=== PATIENT | male | born 1955 | race Caucasian/White ===

== ENCOUNTER 2016-12-24 16:56 | Inpatient (IN) | payer OTHER, MEDICARE ==
[~2016-12-24] VITALS: Ht 182.9 cm; Wt 82.6 kg
[~2016-12-24 16:56] MED LIST: AUGMENTIN 875875 MG PO; COUMADIN 5 MG TA5 MG PO; EXTENDED PHENY100 MG PO; FOLIC ACID 1 MG PO; LEXAPRO 5MG5 MG PO; LOVENOX 6060 MG/0.6 SC; MAGNESIUM OXID400 MG PO; Theragran Vitamins PO; VITAMIN C500 M3 PO; ZINC SULFATE 2220 MG PO
--- NOTE | 2016-12-24 17:10 | NUR ---
PER PT SENT BY DR. MACIAS UNSURE WHY, PT HAD LABS AND CXR TODAY, WENT HOME CALLED TO COME IN LIKE THIS AM, PT IS PALE H/H FROM THIS AM 7.8/24.4. PT AND FAMILY UPSET D/T CONFUSION FROM THIS AM PT IS PALE, NO OBVIOUS SOB. NO CO
--- NOTE | 2016-12-24 17:20 | NUR ---
PT TAKEN TO ROOM 6 FROM TRIAGE SINUS TO SINUS TACH ON MONITOR, 100-118. RA SAT 96% PT WITH ? KNOWN ABDOMINAL MASS - UNCLEAR ABOUT FOLLOW UP/DIAGNOSIS ... BILATERAL PITTING EDEMA NOTED TO LOWER EXTREMITIES SKIN PALE IN COLOR PA INTO EVAL
--- NOTE | 2016-12-24 17:36 | ED GENERAL ADULT ---
History of Present Illness General Chief Complaint: General Adult Stated Complaint: PT WAS SIB BY Source: patient, family, old records Exam Limitations: no limitations Vital Signs & Intake/Output Vital Signs & Intake/Output Vital Signs Date Time Temp Pulse Resp B/P B/P Pulse O2 O2 Flow FiO2 Mean Ox Delivery Rate 12/24 2021 97.1 101 18 131/79 99 Room Air 12/24 1846 98 Room Air 12/24 1721 114 20 116/75 99 Room Air 12/24 1710 97.8 116 22 125/88 Allergies Coded Allergies: NO KNOWN ALLERGIES (01/11/14) Reconcile Medications Multivitamin (Daily Multiple Vitamin) 1 EACH TABLET 1 TAB PO DAILY SUPPLEMENT (Reported) Phenytoin Sodium Extended 100 MG CAPSULE 2 CAP PO BID SEIZURES (Reported) Warfarin Sodium 7.5 MG TABLET 0.5-1 TAB PO AD BLOOD THINNER (Reported) Triage Note: PER PT SENT BY DR. MACIAS UNSURE WHY, PT HAD LABS AND CXR TODAY, WENT HOME CALLED TO COME IN LIKE THIS AM, PT IS PALE H/H FROM THIS AM 7.8/24.4. PT AND FAMILY UPSET D/T CONFUSION FROM THIS AM Triage Nurses Notes Reviewed? yes Onset: Abrupt Duration: week(s):, getting worse Timing: recent history Injury Environment: home No Modifying Factors: none HPI: 61-year-old male sent in by his primary care doctor for further evaluation. Patient complains of increased weakness recently over the past few weeks, swelling in his lower legs, and swelling in his abdomen. Reportedly the patient had some type of abdominal mass that was diagnosed a couple years ago. The patient is not sure what it is as well as the family member and reports that they have not been informed. He reports some intermittent chest pain. He denies any vomiting fever or chills. Nothing seems to make the symptoms better or worse. Denies any other associated symptoms. Patient was sent in by his primary care doctor today for further evaluation and possible admission. (JANUARY BRYAN) Past History Travel History Traveled to [place] past 21 day No Medical History Any Pertinent Medical History? see below for history Neurological: NONE EENT: NONE Cardiovascular: NONE Respiratory: pulmonary embolism, PULMONARY EMBOLUS Gastrointestinal: NONE Hepatic: NONE Renal: NONE Musculoskeletal: NONE Psychiatric: NONE Endocrine: NONE History of MRSA: No History of VRE: No History of CDIFF: No Surgical History Surgical History: non-contributory Psychosocial History Who do you live with Brother Services at Home None What is your primary language Croatian Tobacco Use: Quit >30 days ago Family History Family History, If Any: Relation not specified for: *No pertinent family history Hx Contributory? No (JANUARY BRYAN) Review of Systems Review of Systems Constitutional: Reports: see HPI. EENTM: Reports: no symptoms. Respiratory: Reports: no symptoms. Cardiovascular: Reports: no symptoms. GI: Reports: see HPI. Genitourinary: Reports: no symptoms. Musculoskeletal: Reports: see HPI. Skin: Reports: no symptoms. Neurological/Psychological: Reports: no symptoms. Hematologic/Endocrine: Reports: no symptoms. Immunologic/Allergic: Reports: no symptoms. All Other Systems: Reviewed and Negative (JANUARY BRYAN) Physical Exam Physical Exam General Appearance: no apparent distress, alert, awake Head: atraumatic, normal appearance Eyes: Bilateral: normal appearance. Ears, Nose, Throat: normal pharynx, hearing grossly normal Neck: normal inspection Respiratory: normal breath sounds, no respiratory distress Cardiovascular: regular rate/rhythm Gastrointestinal: distention, mass, firm mass appreciated in lower abd Back: normal inspection Extremities: normal inspection, normal range of motion Neurologic/Psych: awake, alert, normal mood/affect Skin: intact, normal color Core Measures ACS in differential dx? No CVA/TIA Diagnosis: No Severe Sepsis Present: No Septic Shock Present: No (JANUARY BRYAN) Progress Differential Diagnoses I considered the following diagnoses in my evaluation of the patient: Inferior vena cava syndrome, DVT, carcinoma, PE, liver cirrhosis, renal failure, Plan of Care: Orders Procedure Date/time Status Patient Data 12/24 2153 Active Add-on Test (ER Only) 12/24 2114 Active Add-on Test (ER Only) 12/24 1847 Active CULTURE,URINE 12/24 1837 Active URINALYSIS 12/24 1835 Complete Add-on Test (ER Only) 12/24 1736 Active TROPONIN LEVEL 12/24 1734 Complete PARTIAL THROMBOPLASTIN TIME 12/24 1727 Complete PROTHROMBIN TIME 12/24 1727 Complete TYPE & SCREEN (NOT X-MATCH) 12/24 172 Complete EKG 12/24 1724 Active Laboratory Tests 12/24/16 1835: Urinalysis LIGHT H, Urine Color YEL, Urine Clarity TURBD H, Urine pH 7.5, Ur Specific [place] 1.020, Urine Protein 100 H, Urine Ketones NEG, Urine Nitrite POS H, Urine Bilirubin NEG, Urine Urobilinogen 0.2, Ur Leukocyte Esterase LARGE H, Ur Microscopic SEDIMENT EXAMINED, Urine RBC 25-50 H, Urine WBC PACKD H, Ur Epithelial Cells FEW, Urine Bacteria PACKD H, Urine Mucus MANY H, Urine Hemoglobin LARGE H, Urine Glucose NEG 12/24/16 1734: Troponin I < 0.01, PT 20.3 H, INR 1.95 H, APTT 29 Microbiology 12/24 1837 URINE ROUT: Urine Culture - RECD Diagnostic Imaging: Viewed by Me: CT Scan. Discussed w/RAD: CT Scan. Radiology Impression: EXAM TYPE: CAT - CT ABD & PELVIS W IV CONTRAST; CT CHEST W IV CONTRAST EXAMINATION: CT CHEST, ABDOMEN AND PELVIS WITH CONTRAST CLINICAL INFORMATION: Shortness of breath. Firm abdominal mass on physical exam. Concern for compression of the IVC. COMPARISON: CT chest 07/11/2014. CT abdomen pelvis 10/11/2014. Pelvic ultrasound 10/17/2014. MRI of pelvis 11/12/2014. TECHNIQUE: Multidetector volumetric CT imaging of the chest, abdomen and pelvis was obtained after the administration of 95 mL of intravenous Optiray 320 without immediate adverse reactions. DLP: 414.29 mGy-cm. FINDINGS: CT CHEST: Lungs: Linear atelectasis and scarring at the medial anterior right lung base. Asymmetric elevation of the right diaphragm. Lungs are otherwise clear. Central bronchial airways are open. Mediastinum: Large hiatal hernia. No acute change. No fluid collections. No pericardial effusion. Pleura: There is no pleural effusion. No pleural mass or thickening. Axilla: No lymphadenopathy. CT ABDOMEN AND PELVIS: LIVER, GALLBLADDER, AND BILIARY TREE: 5 mm hypodensity dome right lobe of liver segment 8, axial image 47 (2). This is stable since CAT scan of . No suspicious liver lesion. No intrapelvic bile duct dilatation. The gallbladder is unremarkable with no evidence of radiopaque gallstones, gallbladder wall thickening, or obvious pericholecystic inflammatory changes. PANCREAS: No acute change of the pancreas. No mass. No pancreatic duct dilatation. SPLEEN: Spleen normal in size and contour. No focal lesion. ADRENAL GLANDS: Adrenal glands are normal in size. No focal mass. KIDNEYS AND URETERS: The kidneys are normal in size, shape, and attenuation. No hydronephrosis, hydroureter, or calculi seen. No perinephric stranding. BLADDER: Unremarkable. GASTROINTESTINAL TRACT/PELVIS/MESENTERY: There is a large mass in the lower pelvis. The mass is slightly heterogeneous but low in density measuring 30 Hounsfield units. Mass measures AP 14.2 by transverse 12.6 by superior inferior 16.2 cm. This mass fills most of the lower pelvis and displaces the bladder and impresses upon the prostate. The mass displaces bowel loops. At the superior margin of the mass there are air collections. These are tubular collections and some appear to be probably within bowel loop, sagittal image 57 (601). There is a bowel loop which is inseparable from the superior margin of this mass, coronal image 43 (602). The appearance suggests that the mass has engulfed small bowel loops but does not cause obstruction of these bowel loops. Alternatively there could be a fistula allowing air into the mass. The mass has no calcifications. On the CAT scan study of 10/11/2014 and seen on the subsequent MRI exam of pelvis 11/12/2014 a low density mass lesion was present along the right pelvic sidewall. This could be the etiology for this current pelvic mass. A separate appendix is not identified on this exam. There is a large volume of stool throughout the colon. The appendix is not identified. There is no dilatation of the small bowel. The prostate measures 5.5 cm transverse. No free fluid. No inflammation. No free air in the mesentery. ABDOMINAL WALL: Fat-containing right inguinal hernia measuring 1.6 cm transverse. LYMPH NODES: Normal. VASCULAR: Normal enhancement of the abdominal and pelvic vasculature. The pelvic mass does not compress the IVC. The pelvic masses below the IVC. The vessels along the pelvic sidewall may be slightly compressed but the veins remain patent. OSSEOUS STRUCTURES: Multilevel degenerative change of spine. Compression deformity superior endplate of L4 vertebrae with about 50% loss of height of vertebrae is chronic unchanged since CAT scan of 10/11/2014 . IMPRESSION: CTA CHEST: Normal. CT SCAN ABDOMEN PELVIS: Large mass in the lower central pelvis. This mass impress upon the vessels along the pelvic sidewall but does not occlude the pelvic veins. This does not impress upon the IVC. There is air collections within the mass and the mass may have engulfed bowel loops. This does not cause obstruction to the bowel. This critical result was discussed with Dr. Burgos on 12/24/2016, 7:10 p.m. and it was ascertained that the content and urgency of the report was understood at the time of direct communication. 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 DATE/TIME TRANSCRIBED:12/24/161831 Initial ED EKG: normal intervals, normal p-waves, normal sinus rhythm, rate (121 ) (JANUARY BRYAN) Departure Departure Disposition: STILL A PATIENT Condition: Stable Clinical Impression Primary Impression: Symptomatic anemia Secondary Impressions: Lower GI bleed, Pelvic mass in male, UTI (urinary tract infection) Referrals: GARRETT MACIAS MD (PCP/Family) Departure Forms: Customer Survey General Discharge Information Admission Note Spoke With: FELISHA FLORES MD Documentation of Exam: Documentation of any treatments & extenuating circumstances including Concerns Regarding Discharge (functional status, medication knowledge or non-compliance, living conditions, etc.) that warrant an admission rather than observation: Patient will require surgical consult. Surgery. IV antibiotics. Possibly blood transfusion. GI consultation. Interventional radiology consultation. Biopsy of pelvic mass. Oncology consultation. Patient would do poorly as an outpatient. Patient is symptomatic with his anemia. Patient has a lower GI bleed the positive guaiac and a drop in his H&H. Dr. Proctor was consulted and he reviewed the CT scan and will consult on the patient. (JANUARY BRYAN) PA/MOLD CARRIER Co-Sign Statement Statement: ED Attending supervision documentation- x I saw and evaluated the patient. I have also reviewed all the pertinent lab results and diagnostic results. I agree with the findings and the plan of care as documented in the PA's/MOLD CARRIER's documentation. [] I have reviewed the ED Record and agree with the PA's/MOLD CARRIER's documentation. [] Additions or exceptions (if any) to the PAs/MOLD CARRIER's note and plan are summarized below: [] (FILI SOSA,VALERIO) Critical Care Note Critical Care Note Critical Care Time: non-applicable (JANUARY BRYAN)
--- NOTE | 2016-12-24 17:39 | NUR ---
TO US BY TONYAER
[2016-12-24 17:55] LABS: PT 20.3 SEC (9.4-12.5); PTT 29 SEC (25-37)
[2016-12-24] MEDS ORDERED: DAILY MULTIPLE1 EACH PO (18:00)
[2016-12-24] MEDS ORDERED: PHENYTOIN SODI100 MG PO (18:00)
[2016-12-24] MEDS ORDERED: WARFARIN SODIU7.5 M1 PO (18:00)
--- NOTE | 2016-12-24 18:00 | NUR ---
PT REMAINS OUT OF THE DEPARTMENT ATTEMPTED TO RECONCILE MEDS WITH FAMILY MEMBER IN ROOM - STATES "ALL HE TAKES IS DILANTIN AND COUMADIN". DOSAGES UNKNOWN. 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
--- NOTE | 2016-12-24 18:12 | NUR ---
BACK FROM US TAKEN RIGHT TO CT SCAN
--- NOTE | 2016-12-24 18:26 | ULTRASOUND REPORT ---
EXAMINATION: US TRIPLEX OF LOWER EXTREMITIES, BILATERAL CLINICAL INFORMATION: Edema. Swelling. COMPARISON: None TECHNIQUE: Color-flow triplex imaging with spectral analysis and compression Doppler were performed on the lower extremities. FINDINGS: Respiratory variation, normal compression and augmented flow are noted throughout the lower extremities. The visualized common femoral vein, superficial femoral vein, profunda femoral vein, popliteal vein and midcalf peroneal and posterior tibial venous segments show no evidence of deep venous thrombosis. Subcutaneous edema seen in the calf bilaterally. Right leg Popliteal cyst measuring 2.3 x 0.8 x 2.3 cm. IMPRESSION: 1. Normal triplex scan without evidence of deep venous thrombosis involving the lower extremities. 2. Right leg Popliteal cyst. 3. Bilateral subcutaneous edema.
--- NOTE | 2016-12-24 18:45 | NUR ---
BACK FROM CT SCAN, STATES "I FEEL BEAUTIFUL". DENIES ANY COMPLAINTS. DENIES PAIN. ASSISTED TO STAND TO USE URINAL. VOIDS VERY CLOUDY PINK URINE. SAMPLE OBTAINED AND SENT. PA AWARE.
--- NOTE | 2016-12-24 19:13 | NUR ---
REPORT GIVEN TO IVAN BRADEN
--- NOTE | 2016-12-24 19:22 | NUR ---
PT MADE AWARE THAT WE ARE AWAITING CAT SCAN RESULTS.
--- NOTE | 2016-12-24 19:43 | CT SCAN REPORT ---
EXAMINATION: CT CHEST, ABDOMEN AND PELVIS WITH CONTRAST CLINICAL INFORMATION: Shortness of breath. Firm abdominal mass on physical exam. Concern for compression of the IVC. COMPARISON: CT chest 07/11/2014. CT abdomen pelvis 10/11/2014. Pelvic ultrasound 10/17/2014. MRI of pelvis 11/12/2014. TECHNIQUE: Multidetector volumetric CT imaging of the chest, abdomen and pelvis was obtained after the administration of 95 mL of intravenous Optiray 320 without immediate adverse reactions. DLP: 414.29 mGy-cm. FINDINGS: CT CHEST: Lungs: Linear atelectasis and scarring at the medial anterior right lung base. Asymmetric elevation of the right diaphragm. Lungs are otherwise clear. Central bronchial airways are open. Mediastinum: Large hiatal hernia. No acute change. No fluid collections. No pericardial effusion. Pleura: There is no pleural effusion. No pleural mass or thickening. Axilla: No lymphadenopathy. CT ABDOMEN AND PELVIS: LIVER, GALLBLADDER, AND BILIARY TREE: 5 mm hypodensity dome right lobe of liver segment 8, axial image 47 (2). This is stable since CAT scan of 10/11/2014. No suspicious liver lesion. No intrapelvic bile duct dilatation. The gallbladder is unremarkable with no evidence of radiopaque gallstones, gallbladder wall thickening, or obvious pericholecystic inflammatory changes. PANCREAS: No acute change of the pancreas. No mass. No pancreatic duct dilatation. SPLEEN: Spleen normal in size and contour. No focal lesion. ADRENAL GLANDS: Adrenal glands are normal in size. No focal mass. KIDNEYS AND URETERS: The kidneys are normal in size, shape, and attenuation. No hydronephrosis, hydroureter, or calculi seen. No perinephric stranding. BLADDER: Unremarkable. GASTROINTESTINAL TRACT/PELVIS/MESENTERY: There is a large mass in the lower pelvis. The mass is slightly heterogeneous but low in density measuring 30 Hounsfield units. Mass measures AP 14.2 by transverse 12.6 by superior inferior 16.2 cm. This mass fills most of the lower pelvis and displaces the bladder and impresses upon the prostate. The mass displaces bowel loops. At the superior margin of the mass there are air collections. These are tubular collections and some appear to be probably within bowel loop, sagittal image 57 (601). There is a bowel loop which is inseparable from the superior margin of this mass, coronal image 43 (602). The appearance suggests that the mass has engulfed small bowel loops but does not cause obstruction of these bowel loops. Alternatively there could be a fistula allowing air into the mass. The mass has no calcifications. On the CAT scan study of 10/11/2014 and seen on the subsequent MRI exam of pelvis 11/12/2014 a low density mass lesion was present along the right pelvic sidewall. This could be the etiology for this current pelvic mass. A separate appendix is not identified on this exam. There is a large volume of stool throughout the colon. The appendix is not identified. There is no dilatation of the small bowel. The prostate measures 5.5 cm transverse. No free fluid. No inflammation. No free air in the mesentery. ABDOMINAL WALL: Fat-containing right inguinal hernia measuring 1.6 cm transverse. LYMPH NODES: Normal. VASCULAR: Normal enhancement of the abdominal and pelvic vasculature. The pelvic mass does not compress the IVC. The pelvic masses below the IVC. The vessels along the pelvic sidewall may be slightly compressed but the veins remain patent. OSSEOUS STRUCTURES: Multilevel degenerative change of spine. Compression deformity superior endplate of L4 vertebrae with about 50% loss of height of vertebrae is chronic unchanged since CAT scan of 10/11/2014 . IMPRESSION: CTA CHEST: Normal. CT SCAN ABDOMEN PELVIS: Large mass in the lower central pelvis. This mass impress upon the vessels along the pelvic sidewall but does not occlude the pelvic veins. This does not impress upon the IVC. There is air collections within the mass and the mass may have engulfed bowel loops. This does not cause obstruction to the bowel. This critical result was discussed with Dr. Burgos on 12/24/2016, 7:10 p.m. and it was ascertained that the content and urgency of the report was understood at the time of direct communication.
--- NOTE | 2016-12-24 20:30 | NUR ---
MARCO ANTONIO SIN AT BEDSIDE TO EXPLAIN PLAN OF CARE.
--- NOTE | 2016-12-24 21:46 | History & Physical ---
HADLEY SOSA,[facility] 12/24/166: General Information and HPI History of Present Illness: Mr. Carrion is a 61-year-old gentleman with a PMH significant for PE in 2014 on Coumadin, seizure disorder on Dilantin, BPH, abdominal mass, and chronic leg edema, previously admitted at [place] in 2014 for seizures, who was sent in by PCP for further evaluation of his anemia in the setting of worsening bilateral leg swelling and abdominal mass. Patient states that his legs have been getting progressively more swollen for the past year and half, and he has been following up with his PCP for it. Over the past week his leg swelling worsened significantly to the extent that he couldn't put on his pants or shoes. During the visit with PCP earlier today he was additionally found to be anemic with H&H of 7.8/24.4 and subsequently prompted to come into ER. The patient states that he was practically in his usual state until a week ago when he fell after "passing out." He reports palpitations with lightheadedness and blurry vision right before the fall. He had the exact same episode again this morning. Denies any head trauma and is unsure if he was seizing at that time as it was unwitnessed. Since the fall last week he has been feeling very fatigued and short of breath especially with exertion. He notes his abdominal pain and swelling also worsened, especially when sitting up. ROS otherwise significant for ongoing dysuria for 4 years and hematochezia for the past 2 years. He reports occasssionally passing mucous stools mixed with bright red blood when he was trying to pass a gas. He sometimes notes some bright red blood on top of stools with bowel movements. Denies any n/v/c/d. Reports a good appetite. No h/o colonoscopy or f/u with high school librarian in the past despite encouragement by PCP. Denies frequetl use of NSAIDs although he has heartburn occassionally. He also reports an abdominal mass that has been increasing in size for the past 2 years. He was seen by Dr. French about 1-2 year ago but didn't pursue any further evaluation or treatment. At the time of interview patient denies any recent chest pain, dyspnea, headache, fever or chills. 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 He has been on Dilantin 200mg BID chronically. He last saw Dr. Greer a year ago and is due for follow up soon. On he is an occassional smoker, a few cigarettes a year. Denies any alcohol or illicit drug use. He lives alone at home where his brother lives downstairs. He does not use any walking aids. FH remarkable for breast cancer in mother and some kind of venous disorder that resulted in bilateral toe amputations. Denies any h/o CAD, CVA, blood dyscrasia in the famiy. PCP - Dr. Macias Neurologist - Dr. Greer Oncologist - Dr. French Full code. Allergies/Medications Allergies: Coded Allergies: NO KNOWN ALLERGIES (01/11/14) Home Med list Multivitamin (Daily Multiple Vitamin) 1 EACH TABLET 1 TAB PO DAILY SUPPLEMENT (Reported) Phenytoin Sodium Extended 100 MG CAPSULE 2 CAP PO BID SEIZURES (Reported) Warfarin Sodium 7.5 MG TABLET 0.5-1 TAB PO AD BLOOD THINNER (Reported) Past History Travel History Traveled to [place] past 21 day No Medical History Neurological: NONE EENT: NONE Cardiovascular: NONE Respiratory: pulmonary embolism, PULMONARY EMBOLUS Gastrointestinal: NONE Hepatic: NONE Renal: NONE Musculoskeletal: NONE Psychiatric: NONE Endocrine: NONE History of MRSA: No History of VRE: No History of CDIFF: No Surgical History Surgical History: non-contributory Past Family/Social History Family History Relations & Conditions if any Relation not specified for: *No pertinent family history Psychosocial History Where do you live? Home Who Do You Live With? alone Services at Home: None Smoking Status: Light Tobacco Smoker ETOH Use: denies use Illicit Drug Use: denies illicit drug use Review of Systems Review of Systems Constitutional: Reports: see HPI. Exam & Diagnostic Data Last 24 Hrs of Vital Signs/I&O Vital Signs Date Time Temp Pulse Resp B/P B/P Pulse O2 O2 Flow FiO2 Mean Ox Delivery Rate 12/25 0000 98.9 103 18 122/70 97 Room Air 12/24 2309 97.1 107 18 131/81 98 Room Air 12/24 2021 97.1 101 18 131/79 99 Room Air 12/24 1846 98 Room Air 12/24 1721 114 20 116/75 99 Room Air 12/24 1710 97.8 116 22 125/88 Intake & Output 12/25 0800 12/25 0000 12/24 1600 Intake Total Output Total 200 Balance -200 Output, Urine 200 Patient 90.265 kg Weight Physical Exam General Appearance Alert, Oriented X3, Cooperative, No Acute Distress Skin No Rashes, No Breakdown, No Significant Lesion Skin Temp/Moisture Exam: Cool/Dry Sepsis Skin Exam (color): Pale HEENT Atraumatic, PERRLA, EOMI, Mucous Membr. moist/pink Neck Supple, No JVD Cardiovascular Regular Rate, Normal S1, Normal S2, No Murmurs, Gallops, Rubs Lungs Clear to Auscultation, Normal Air Movement Abdomen Soft, Large mass in the center of lower abdomen, BS present Neurological Normal Speech, Strength at 5/5 X4 Ext, Normal Tone, Sensation Intact, Cranial Nerves 3-12 NL Extremities No Cyanosis, 2+ pitting ededma in BLEs with mild erythema Vascular Normal Pulses, Pulses Symmetrical Rectal No Hemorrhoids, Enlarged prostate gland, Guaic positive Last 24 Hrs of Labs/Yuri: Laboratory Tests 12/24/16 1835: Urinalysis LIGHT H, Urine Color YEL, Urine Clarity TURBD H, Urine pH 7.5, Ur Specific [place] 1.020, Urine Protein 100 H, Urine Ketones NEG, Urine Nitrite POS H, Urine Bilirubin NEG, Urine Urobilinogen 0.2, Ur Leukocyte Esterase LARGE H, Ur Microscopic SEDIMENT EXAMINED, Urine RBC 25-50 H, Urine WBC PACKD H, Ur Epithelial Cells FEW, Urine Bacteria PACKD H, Urine Mucus MANY H, Urine Hemoglobin LARGE H, Urine Glucose NEG 12/24/16 1734: Troponin I < 0.01, Albumin Pending, Total PSA 5.75 H, TSH Pending, PT 20.3 H, INR 1.95 H, APTT 29, Phenytoin 9.3 L Microbiology 12/24 1836 URINE ROUT: Urine Culture - RECD Assessment/Plan Assessment: Mr. Carrion is a 61-year-old gentleman with a PMH significant for PE in 2014 on Coumadin, seizure disorder on Dilantin, BPH, abdominal mass, and chronic leg edema who is admitted for further evaluation of syncope vs. seizure in addmition his anemia in the setting of worsening bilateral leg swelling and abdominal mass. # Syncopal falls vs. Seizure Patient reports intermitten falls from "passing out," preceded by palpitations with lightheadedness and vision changes. Coudl be epileptic episodes in the context of his preexisting seizure disorder but as for now it warrants further work up to r/o any neruological/cardiac causes * Admit to telmetery unit * Serial EKG/troponins * Echocardiogram * Consult neurology (Dr. Mason) * Seizure precautions * Cont home med Dilantin 200mg BID * Check Dilantin level * Neurochecks Q6 * EEG * Seizure precautions # BLE edema Most likely due to compression of vein by the abdominal mass. It is also possible that anemia could contribute to it. * Give one time IV Lasix 40mg * Strict I/Os * Check BEP, trend renal fx * Pursue workup/treatment for abdominal mass # Abdominal mass - CT abd/pelvis: Large mass in the lower central pelvis. This mass impress upon the vessels along the pelvic sidewall but does not occlude the pelvic veins. This does not impress upon the IVC. There is air collections within the mass and the mass may have engulfed bowel loops. This does not cause obstruction to the bowel. * Consult general surgery * Consult oncology # Symptomatic anemia Most likely due to GI blood loss in the context of recent hematochezia. Guaic positive on EDWIN. Although patient complains of dyspnea and fatigue with exertion , we will hold off transfusing him for now as Hgb is close to 8. * Recheck CBC tomorrow morning, consider transfusing if Hgb drops further * Consult GI * Consult hematology # UTI Reports dysuria with UA indicative of UTI. * Cont IV ceftriaxone # BPH * Check PSA, CEA, CA-99 * Urology referral upon discharge * Consider starting tamulosin # Hx of PE * Cont Coumadin at home dose * INR daily, dose Coumadin accordingly - Heart healthy diet - Mild pain pathway - DVTppx with warfarin - Full code. As Ranked By This Provider Problem List: 1. Lower GI bleed 2. UTI (urinary tract infection) 3. Pelvic mass in male 4. Symptomatic anemia Core Measures/Miscellaneous Acute Coronary Syndrome ACS Diagnosis: No Cerebrovascular Accident CVA/TIA Diagnosis: No Congestive Heart Failure CHF Diagnosis: No Venous Thromboembolism VTE Risk Factors: Age > 40 No Mech VTE prophylaxis d/t: LE Edema No VTE Pharm Prophylaxis d/t: No contraindications VTE Diagnosis: No VTE Type: NONE VTE Confirmed by (Test): NONE Severe Sepsis Severe Sepsis Present: No Septic Shock Septic Shock Present: No Miscellaneous Documentation Attending Case Discussed With: FELISHA FLORES MD Primary Care Physician: GARRETT MACIAS MD Patient sees these Specialists HPI Level of Patient Care: Telemetry CHRISTINE FERREIRA 12/25/16 0246: Resident Review Statement Resident Statement: examined this patient, discussed with internal security manager, agreed with internal security manager, reviewed images Other Findings: Mr. Carrion is a 61-year-old gentleman with significant past medical history of childhood encephalitis complicated by seizures, now on Dilantin chronically [200 mg twice a day], previous pulmonary embolism [unprovoked, on Coumadin for anticoagulation] who presented to the hospital emergency department after being instructed to do so by his primary care physician. He was instructed to come in for evaluation of anemia [H&H 7.8/24.4]. At the time of interview, he has complains of fatigue and lower extremity swelling, along with dysuria and frequency. He states that these symptoms have been going on for at least 1.5 years, but have been progressively worse over the last month. He is quite a difficult historian, at times confused/unable to recall when his symptoms came on or describe his concerns. He describes multiple episodes of falling/passing out. He states that these are "seizures" however when further questioned, he states that they come on rapidly, are associated with palpitations, lightheadedness and diplopia prior to falling. He states that he does not feel confused after waking up and denies any bowel or bladder incontinence. He states that he last saw Dr. Greer approximately 1 year ago, and it was recommended that his Dilantin dose be increased however the patient requested to keep it at 200 mg daily. He has never been evaluated by a loan review analyst. Additionally, he described passing fresh blood per rectum mixed with stool/mucus when passing flatus occasionally. He states he has hemorrhoids, and has been using preparation H, but is still having these occasional episodes. He has been evaluated in the past by Dr. French for his pulmonary embolism/ hypercoagulability and was worked up with a pelvic ultrasound after an mass was appreciated on physical exam, and a subsequent pelvic MRI, the results of which demonstrated a complex cystic mass in the right lower quadrant at the base of the cecum with communication to the appendix. Radiographically this was thought to be a mucocele versus mucinous neoplasm. Unfortunately, the patient was unable to follow-up and today on further evaluation of an abdominal mass palpated, an abdominopelvic CT scan revealed a significant 12.6 x 14.2 x 16.2 cm mass in the lower central pelvis - see report above. When the patient was questioned, he did note increasing abdominal distention, worse over the last month to the point where he cannot button his pants. He did complain of some discomfort when he sat up and felt that the mass was pushing on his bladder. He denies any weight change or loss of appetite. The remainder of the review of systems, social and family history as well as physical exam as dictated above. Problem list assessment and plan Syncope versus seizure with anemia * The patient does have a significant history of epilepsy secondary to childhood encephalitis and is on seizure prophylaxis with 200 mg of Dilantin twice a day. * Last time he followed up with Dr. Greer he was instructed to increase his dose however refused. His falls could potentially be secondary to epileptic foci, however given the palpitations and lightheadedness preceding the events, as well as his tachycardia and bigeminy on EKG, I'm more inclined to think that his falls are possibly due to syncopal episodes. * We will admit to telemetry for monitoring overnight, and obtain another EKG in the morning. * Neuro consult placed and appreciated. We will continue his Dilantin and obtain a Dilantin level, normal therapeutic dose is 10-20. Consider re-dosing based on Dilantin level. * Seizure precautions and also consider an EEG if secured entrance monitor is unremarkable. * Also consider a carotid ultrasound, however given the fact that he is not a diabetic, doesn't have hyperlipidemia or hypertension I am less inclined to think he has carotid artery stenosis. * Additionally, given his anemia, this is also a reasonable etiology to his syncope especially if he does have episodes of tachycardia. Abdominal mass * Unfortunately, this patient has been lost to follow-up and presents today with significant abdominal distention and a significant increase in the size of his abdominal mass. 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 I don't think this is a carcinoid tumor in spite of its location. The patient doesn't have any diarrhea, flushing, hypertension or other signs of serotonin agonism, but consider urinary 5 HIAA to rule out a carcinoid tumor. Also note, most patients that develop carcinoid syndrome do so when the have liver metastases, which this patient does not have. * He will most definitely need surgical evaluation for possible biopsy and/or resection, as well as oncology evaluation. Lower extremity edema * Possibly due to decreased venous return or lymphatic return due to compression from his abdominal past. * This also could be due to high output heart failure given his anemia. * We will diurese with 40 of Lasix IV and monitor his ins and outs, daily weights as well as his lower extremity edema. * Given his hypercoagulability however, with previous PE, we will obtain a BL duplex U/S to evaluate for DVT Dysuria * Urinalysis was positive for signs of UTI. * The mass is pushing up against the bladder leading to some symptoms of urgency /frequency as well as some urinary retention leading to a urinary tract infection. * We will continue with intravenous ceftriaxone 1 g daily and culture urine which is artery been collected. Hypercoagulability * INR was therapeutic * Please consider discontinuing Coumadin dosing tomorrow if the patient isn't going for surgical intervention. * He is hypercoagulable obviously most likely due to his mass which probably led to his pulmonary embolism previously. * Per his CMR, he takes coumadin 7.5 mg, but 0.5-1 tablet. Please confirm dose and redose based on INR in the am. FULL CODE NPO starting midnight for possible biopsy pain path coumadin for dvt ppx SANDRA SOSA, [facility] 12/25/16 0456: Attending MD Review Statement Attending Statement Attending MD Statement: examined this patient, discuss w/resident/PA/EMPLOYEE BENEFITS ATTORNEY, agreed w/resident/PA/EMPLOYEE BENEFITS ATTORNEY Attending Assessment/Plan: 61 yo M with h/o seizure disorder 2/2 childhood encephalitis maintained on dilantin, last admitted to [place] (2013) for status epilepticus 2/2 medication noncompliance that was c/b aspiration pneumonia and PE on coumadin, depression is sent in by PCP for evaluation of anemia. Patient reports increasing weakness, fatigue, dyspnea on exertion and inability to fit into his pants due to worsening LE edema and abdominal distension. Though his symptoms are ongoing for over 1.5 yrs, they have been progressive over past 1 month. Patient is a poor historian and provides multiple compaints multiple episodes of syncope ? seizures most recently today and 1 week prior, associated with palpitations and lightheadedness. He reports compliance with dilantin, but is reluctant to increase the dose or add another anti-epileptic. He c/o dysuria and urinary frequency/ urgency. He has hemorrhoids and reports painful bleeding especially hematochezia for over 2 yrs. Heartburn+, no melena or hematemesis. He denies previous colonoscopy or EGD. No loss of appetite. He denies excessive NSAID use. On reviewing his chart, it is noted that patient had seen Dr. French in 2015 to evaluate cause of hypercoagulable state, wherein CT and MRI revealed an enlarged prostate and a complex cystic mass with peripheral rim enhancement in the right lower quadrant at the base of cecum with communication to appendix suspicious for mucocele or mucinous neoplasm mucinous cystadenocarcinoma. Patient did not follow up with Dr. French. Vitals stable except for tachycardia. Exam: AAO, flat affect. Chest b/l clear, Heart S1S2 regular, Abd soft, palpable suprapubic mass with right lower quadrant and suprapubic tenderness. LE: 3+ pitting pedal edema extending upto abdomen. Rectal exam (done by resident): enlarged prostate nodular, no hemorrhoids, heme positive stool. Labs: H/H 7.8/24.4, normocytic, (baseline 10-12/ 29-32), BUN 25, Ca 7.9, albumin 2.6, TSH 2.74, LFT normal, trop neg, HbA1c 5.8, INR 1.95. CXR: hiatal hernia, basilar atelectasis. LE doppler: no DVT, right left popliteal cyst. UA turbid, packed WBC, packed bacteria, RBC 25-50, nitrite positive, large esterase. CT abd/pelvis: large mass in lower central pelvis with air collections within the mass with mass engulfing the small bowel loops. Mass displaces the bladder and impresses on prostate. EKG: SR, ventricular bigeminy. Echo (2013): normal LV function. 1. Recurrent breakthrough seizure vs. Syncope. Possibly 2/2 medication noncompliance. Tele admit, neurochecks, seizure precautions, check orthostats, check dilantin levels, resume dilantin 200 BID, Neuro consult, EEG. Serial EKG and troponin, check echo. Replete electrolytes to keep K > 4.0 and Mag > 2.0. 2. Acute blood loss, symptomatic anemia likely source being GI. Type and crossmatch, transfuse if Hb < 7.0, guaiac all stools, obtain GI consult. Inpatient vs. Outpatient EGD/ colonoscopy. Check iron studies, B12 and folic acid. Check peripheral smear and assess for hemolysis (LDH, retic count). Obtain heme-onc consult. 3. Bilateral lower extremity edema likely multifactorial in the setting of huge pelvic mass compressing the veins, less likely lymphedema or 2/2 anemia. Need to rule out congestive heart failure vs. Hepatic or renal disease. LFTs and renal functions are normal. Urine shows proteinuria. Obtain echo to assess LV function. Lasix IV 40 mg, monitor output, elevate both LE. Assess need for further diuresis in AM. 4. Pelvic mass of unclear etiology. Most likely arising from appendix as evidenced in previous studies, not clear on this imaging. Surgery consult (Dr. Proctor aware) ?plan for surgical removal of mass/ biopsy. Check PSA and CEA. He would need eventual Urology eval for enlarged prostate and GI eval for colon cancer surveillance. 5. UTI. Obtain urine culture, treat with IV ceftriaxone. 6. PE. INR 1.95, hold coumadin. Once anemia resolves, consider resuming coumadin. Also, assess need to resume if patient not undergoing any surgical intervention. DVT ppx Alps. Full code.
--- NOTE | 2016-12-24 21:51 | NUR ---
MARCO ANTONIO SIN AT BEDSIDE.
--- NOTE | 2016-12-24 21:59 | NUR ---
PT MEDICATED WITH ROCEPHIN PER EMAR.
--- NOTE | 2016-12-24 22:15 | NUR ---
HOUSESTAFF AT [facility] FOR EVAL.
--- NOTE | 2016-12-24 22:40 | NUR ---
PT GOING TO ROOM 229-2
--- NOTE | 2016-12-24 23:06 | NUR ---
REPORT GIVEN TO IVAN WYATT ON GEN MED.
--- NOTE | 2016-12-24 23:30 | NUR ---
REPORT GIVEN TO STEVE ON TELEMETRY.
[2016-12-25] VITALS: BP 122/70
--- NOTE | 2016-12-25 04:57 | Admission Certification ---
Admission Certification Certification Statement - As attending physician, I certify that at the time of - admission, based on clinical presentation, severity of - symptoms, need for further diagnostic testing and - therapeutic interventions, and risk of adverse outcomes - without in-hospital treatment, in my clinical assessment, - this patient requires an acute hospital stay for a minimum - of two nights or longer. I have also considered psychsocial - factors such as support system, advanced age, financial - issues, cognitive issues, and failed out-patient treatments, - past re-admission history, safety of patient, and lack of - compliance as applicable. Specific rationale supporting this admission is: Acute blood loss, symptomatic anemia, syncope vs. seizure, new pelvic mass.
--- NOTE | 2016-12-25 07:18 | Cons- Oncology ---
General Information and HPI Consulting Request Date of Consult: 12/25/16 Requested By: SANDRA SOSA,FELISHA History of Present Illness: The patient is a 61-year-old gentleman complex past medical history now admitted with bilateral leg swelling and a syncopal episode at home. I have previously seen the patient in consultation for iron deficiency anemia. At that time, recommendation was made for GI workup the patient adamantly refused despite my vigorous attempts. Patient is now complaining of abdominal pain and an episode of hematochezia. He tells me his leg swelling has improved since she's been admitted to the hospital Allergies/Medications Allergies: Coded Allergies: NO KNOWN ALLERGIES (01/11/14) Home Med List: Multivitamin (Daily Multiple Vitamin) 1 EACH TABLET 1 TAB PO DAILY SUPPLEMENT (Reported) Phenytoin Sodium Extended 100 MG CAPSULE 2 CAP PO BID SEIZURES (Reported) Warfarin Sodium 7.5 MG TABLET 0.5-1 TAB PO AD BLOOD THINNER (Reported) Current Medications: Current Medications Sig/Ghulam Start time Last Medication Dose Route Stop Time Status Admin Ceftriaxone Sodium 1,000 MG DAILY 12/25 1000 AC IV Ceftriaxone Sodium 0 .STK-MED ONE 12/24 2156 DC .ROUTE Ceftriaxone Sodium 1,000 MG ONCE ONE 12/24 2130 DC 12/24 IV 12/241 2159 Furosemide 40 MG ONCE ONE 12/25 0030 DC 12/25 IV 12/25 0031 0100 Multivitamins 1 TAB DAILY 12/25 1000 AC Therapeutic PO Phenytoin 200 MG BID 12/25 0011 AC 12/25 PO 0100 Review of Systems Review of Systems: Patient denies headaches or dizziness. Patient denies new shortness of breath cough chest pain or hemoptysis. Patient denies dysuria or hematuria. Patient denies new bone pain. 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 Home Who Do You Live With? alone Services at Home: None Smoking Status: Light Tobacco Smoker ETOH Use: denies use Illicit Drug Use: denies illicit drug use Exam & Diagnostic Data Vital Signs and I&O Vital Signs Date Time Temp Pulse Resp B/P B/P Pulse O2 O2 Flow FiO2 Mean Ox Delivery Rate 12/25 0000 Room Air 12/25 0000 98.9 103 18 122/70 97 Room Air 12/24 2309 97.1 107 18 131/81 98 Room Air 12/24 2022 97.1 101 18 131/79 99 Room Air 12/24 1846 98 Room Air 12/24 1721 114 20 116/75 99 Room Air 12/24 1710 97.8 116 22 125/88 Intake & Output 12/25 0800 12/25 0000 12/24 1600 Intake Total 200 Output Total 750 200 Balance -550 -200 Intake, IV 0 Intake, Oral 200 Number 0 Bowel Movements Output, Urine 750 200 Patient 182 lb 200 lb Weight Weight Chair scale Reported by Patient Measurement Method Gen.: in NAD ENT: Sclera anicteric Chest: Normal respiratory effort, decreased breath sounds Cor: RRR, no extra sounds Abdomen: Soft, bowel sounds present, minimal diffuse tenderness, no rebound, question lower abdominal mass Extremities: Without clubbing, cyanosis, or asymmetric edema Neurology: Alert and oriented 3, no gross deficit Skin: No rashes Last 48 Hours of Lab Results: Laboratory Tests 12/25 12/25 12/24 0639 0610 1835 Chemistry Sodium Pending Potassium Pending Chloride Pending Carbon Dioxide Pending Anion Gap Pending BUN Pending Creatinine Pending BUN/Creatinine Ratio Pending Iron Cancelled Pending TIBC Cancelled Pending Ferritin Cancelled Pending Troponin I Pending Vitamin B12 Pending Folate Cancelled Pending Coagulation PT Pending INR Pending Hematology CBC w Diff Pending WBC Pending RBC Pending Hgb Pending Hct Pending MCV Pending MCH Pending RDW Pending Plt Count Pending MPV Pending PUBS MCHC Pending Urines Urinalysis LIGHT H Urine Color (YEL,AMB,STR) YEL Urine Clarity (CLEAR) TURBD H Urine pH (5.0 - 8.0) 7.5 Ur Specific [place] (1.001 - 1.035) 1.020 Urine Protein (NEG,<30 MG/DL) 100 H Urine Ketones (NEG) NEG Urine Nitrite (NEG) POS H Urine Bilirubin (NEG) NEG Urine Urobilinogen (0.1 - 1.0 EU/dl) 0.2 Ur Leukocyte Esterase (NEG) LARGE H Ur Microscopic SEDIMENT EXAMINED Urine RBC (0 - 5 /HPF) 25-50 H Urine WBC (0 - 2 /HPF) PACKD H Ur Epithelial Cells (NONE,FEW) FEW Urine Bacteria (NEG/NONE) PACKD H Urine Mucus (FEW,NONE) MANY H Urine Hemoglobin (NEG) LARGE H Urine Glucose (N MG/DL) NEG 12/24 1734 Chemistry Troponin I (<0.11 ng/ml) < 0.01 Albumin (3.5 - 5.0 g/dL) 2.7 L Total PSA (0.00 - 4.00 ng/mL) 5.75 H TSH (0.270 - 4.200 uIU/mL) 2.680 Coagulation PT (9.4 - 12.5 SEC) 20.3 H INR (0.90 - 1.17) 1.95 H APTT (25 - 37 SEC) 29 Toxicology Phenytoin (10.0 - 20.0 ug/mL) 9.3 L Imaging/Other Studies: CAT scan abdomen and pelvis-inferior abdominal mass, 5 mm hepatic lesion Doppler ultrasound-no DVT Assessment/Plan Assessment: 1. Given the patient's history and presumed iron deficiency anemia, GI malignancy would explain all his findings. The patient, again, is adamant that he wishes not to pursue any workup for malignancy. I again emphasized the seriousness of his current situation and the likelihood that cancer is present. Recommend-if the patient has a change of heart, GI consultation should be obtained. 2. Microcytic anemia-undoubtedly iron deficient and GI source the likely explanation. Recommend- As above Check iron iron-binding ferritin Replete iron Recommendations: .. Consult Acknowledgment - Thank you for your consult request.
--- NOTE | 2016-12-25 07:22 | PN- Housestaff ---
Subjective Follow-up For: Pelvic mass ABLA Seizure History of PE UTI Tele-Events Since Last Visit: Sinus rhythm HR 100-140s Subjective: No acute events overnight. Patient seen and examined this morning. He has no new complaints. He feels that leg swelling has improved since coming to the hospital. He reports that he is currently interested in further workup of the GI malignancy. Review of Systems Constitutional: Reports: see HPI. Objective Last 24 Hrs of Vital Signs/I&O Vital Signs Date Time Temp Pulse Resp B/P B/P Pulse O2 O2 Flow FiO2 Mean Ox Delivery Rate 12/25 1647 99.3 101 16 110/62 96 12/25 0000 Room Air 12/25 0000 98.9 103 18 122/70 97 Room Air 12/24 2309 97.1 107 18 131/81 98 Room Air Intake & Output 12/25 1600 12/25 0800 12/25 0000 Intake Total 480 200 Output Total 300 750 200 Balance 180 -550 -200 Intake, IV 0 Intake, Oral 480 200 Number 0 Bowel Movements Output, Urine 300 750 200 Patient 82.554 kg 90.492 kg Weight Weight Chair scale Reported by Patient Measurement Method Physical Exam General Appearance: Alert, Oriented X3, No Acute Distress HEENT: Atraumatic, Mucous Membr. moist/pink Neck: Supple Cardiovascular: Regular Rate, Normal S1, Normal S2, No Murmurs, Gallops, Rubs Lungs: Diminished Breath Sounds Abdomen: Soft, Minimal Diffuse Tenderness to Palpation Throughout, Palpable Mass Extending from Pelvis to Abdomen, Positive Bowel Sounds Extremities: 2+ Pitting Edema on Bilateral Lower Extremities Current Medications: Current Medications Sig/Ghulam Start time Last Medication Dose Route Stop Time Status Admin Calcium Carbonate 500 MG ONCE ONE 12/25 1714 DC PO 12/26 1715 Ceftriaxone Sodium 1,000 MG 12/25 AC 12/25 IV 2114 Ceftriaxone Sodium 1,000 MG DAILY 12/25 1000 DC IV Furosemide 40 MG ONCE ONE 12/25 0030 DC 12/25 IV 12/25 0031 0100 Multivitamins 1 TAB DAILY 12/25 1000 AC Therapeutic PO Phenytoin 200 MG BID 12/25 0011 AC 12/25 PO 2115 Last 24 Hrs of Lab/Yuri Results Last 24 Hrs of Labs/Mics: Laboratory Tests 12/25/16 2010: CBC w Diff NO MAN DIFF REQ, RBC 3.14 L, MCV 82.8, MCH 26.6 L, RDW 17.6 H, MPV 6.9 L, Gran % 81.4 H, Lymphocytes % 7.9 L, Monocytes % 9.9 H, Eosinophils % 0, Basophils % 0.8, Absolute Granulocytes 9.1 H, Absolute Lymphocytes 0.9 L, Absolute Monocytes 1.1 H, Absolute Eosinophils 0, Absolute Basophils 0.1, PUBS MCHC 32.1 L 12/25/16 1000: Vitamin B12 Cancelled 12/25/16 0639: Iron Cancelled, TIBC Cancelled, Ferritin Cancelled, Folate Cancelled 12/25/16 0610: Anion Gap 8, Estimated GFR > 60, BUN/Creatinine Ratio 23.3, Iron 26 L, TIBC 226 L, Ferritin 17.4 L, Troponin I < 0.01, Vitamin B12 765, Folate 17.5, PT 22.2 H, INR 2.13 H, CBC w Diff NO MAN DIFF REQ, RBC 2.71 L, MCV 81.3, MCH 26.2 L, RDW 17.7 H, MPV 7.2 L, Gran % 75.9 H, Lymphocytes % 11.0 L, Monocytes % 12.5 H, Eosinophils % 0.1, Basophils % 0.5, Absolute Granulocytes 6.8 H, Absolute Lymphocytes 1.0 L, Absolute Monocytes 1.1 H, Absolute Eosinophils 0, Absolute Basophils 0, PUBS MCHC 32.3 L 12/25/16 0600: Carcinoembryonic Ag Pending Urine Cx (12/24/16): >100,000 colonies/ml of Escherichia coli Assessment/Plan Assessment: 61 y/o M with PMHx of seizure disorder on Dilantin, PE in 2013 on Coumadin and BPH who is admitted with symptomatic anemia, bilateral lower extremity edema and large pelvic mass extending into the abdomen. 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 Imaging suggestive of gas within the mass and air within the bladder which could represent fistulization or invasion into the bladder. * Oncology and GI consulted. Appreciate their recs. * CT with IV and oral contrast with concurrent CT cystogram tentatively scheduled on Wednesday (12/25/16) to delineate extent of tumor infiltration. * Plans for further evaluation including possible colonoscopy and surgery pending CT scan. * CEA pending. #ABLA: H/H has further dropped to 7.1/22. * Transfuse 1 unit of pRBCs and repeat CBC post-transfusion. * Monitor H/H and transfuse as needed to keep Hgb >7. #History of PE: Diagnosed in 2013 and treated with warfarin. INR 2.13. * Continue to hold warfarin. * Start IV heparin once INR <2 in anticipation for possible surgery or biopsy. #Possible seizures: Per neurology transient neurological events could potentially represent complex partial seizures. EEG normal. * Neurology following. Appreciate their recs. * Continue prior to admission phenytoin 200 mg PO BID. #UTI: In the presence of UCx growing >100,000 colonies/ml of GNR and dysuria. * Follow UCx. * Continue ceftriaxone 1 g IV daily. Diet: Clear liquid diet DVT PPx: ALPs CODE: FULL Problem List: 1. Acute blood loss anemia 2. Seizure 3. Symptomatic anemia 4. Pelvic mass in male 5. Abdominal mass 6. UTI (urinary tract infection) 7. History of pulmonary embolism Pain Ratin Pain Location: N/A Pain Goal: Remain pain free Pain Plan: None Tomorrow's Labs & Rationales: CBC to monitor H/H in the setting of anemia BMP to monitor lytes and kidney function in the setting of hyponatremia INR in the setting of warfarin therapy
[2016-12-25 08:02] LABS: ABSOLUTE BASOPHIL COUNT 0 /CUMM (0.0-0.2); BASOPHIL % 0.5 % (0.0-2.0); RED BLOOD CELL CT 2.71 /CUMM (4.70-6.10)
[2016-12-25 08:22] LABS: PT 22.2 SEC (9.4-12.5)
[2016-12-25 08:32] LABS: ABSOLUTE EOSINOPHIL COUNT 0 /CUMM (0.0-0.7); ABSOLUTE GRANULOCYTE CT 6.8 /CUMM (1.4-6.5); ABSOLUTE MONOCYTE COUNT 1.1 /CUMM (0.10-0.60); EOSINOPHIL % 0.1 % (0-5); GRANULOCYTE % 75.9 % (42.2-75.2); MEAN CORPUSCULAR HGB 26.2 PG (27.0-31.0); MEAN CORPUSCULAR HGB CONC 32.3 G/DL (33.0-37.0); MEAN CORPUSCULAR VOLUME 81.3 FL (80.0-94.0); MEAN PLATELET VOLUME 7.2 FL (7.4-10.4); PLATELET COUNT 431 /CUMM (130-400); RBC DISTRIBUTION WIDTH 17.7 % (11.5-14.5)
--- NOTE | 2016-12-25 09:09 | Cons- Gastroenterology ---
General Information and HPI Consulting Request Date of Consult: 12/25/16 Requested By: ANNIKA SOSA,MANPREET Minaya Reason for Consult: I was notified this morning by the hospitalist service to assess iron deficiency anemia, scant rectal bleeding, and abdominal pelvic mass on CT, HD #2. Source of Information: patient, old records Exam Limitations: fair historian, ? component of denial; A & Ox3, but history of encephalitis. 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 Land, with worsening anemia, with H/H from that a.m. 7.8/24.4. Upon arrival to the ER, BP 125/88, P 116, R 22, T 97.8, O2 sat RA 99%. At first, the patient claimed he had no idea why he was in the ER. He was then complaining of generalized weakness, right-sided abdominal pain, and occasional GERD. He also noted bilateral lower extremity pitting edema for unknown duration. He denied any increased abdominal girth. *The patient has a known abdominal pelvic mass, dating back over 2 years, along with the anemia, for which he had previously seen Dr. French. It is clearly documented that Dr. French had previously urged the patient to undergo GI workup, but the patient refused. The patient now states he "knew nothing about the mass." He then later stated he "knew about it, but wasn't aware of the severity." 10/11/2014: CT AP with IV/po contrast- 3.0 x 1.8 x 2.4 cm oval, hypodense mass in the right hemipelvis, along with thoraco-lumbar compression fractures and markedly enlarged prostate. 10/17/2014: Abdominal pelvic ultrasound- limited study of cystic mass in the pelvis, with prostatomegaly. 11/12/2014: MRI of pelvis with and without gadolinium- complex cystic mass in the right lower quadrant at the base of the cecum with apparent communication to the appendix. The patient denied any change in stool caliber, diarrhea, constipation, obstipation, or tenesmus. He noted scant painless rectal bleeding only after defecation of brown stool, without any spontaneous lower GI bleeding or melena. He denied any blood transfusions prior to this admission. He denied any weight loss, but rather noted weight gain, in conjunction with the peripheral edema. He denied any fevers, chills, night sweats, change in appetite, jaundice, dark urine, light stool, or pruritus. With regards to the mild reflux, he denied any odynophagia, dysphagia, hematemesis, or early satiety. He denied any gross hematuria, bone pain, chest pain, shortness of breath, or hemoptysis. 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 He has noted some mild dyspnea on exertion lately. He denied any pleuritic pain. He initially denied any symptoms of UTI or URI to me, but later told the medical house staff he had urinary frequency and dysuria. He was put on IV Ceftriaxone for turbid urine with pyuria and microscopic hematuria, as well as for the gas-containing abdominal pelvic mass, which may be fistulizing and/or invading the urinary bladder. The patient is tolerating solids po without difficulty. He has never had an EGD or colonoscopy, nor any surgery. He has been seen by medicine, surgery, oncology, and neurology. *The patient is now willing to undergo treatment and workup of his abdominal pelvic mass, which he has been delinquent with for the past 2 years. Both of the patient's parents of some unknown malignancy, but there is no documented family history of GI malignancy. 12/24/2016: Admission labs- WBC 10 (82% granulocytes/8 granulocyte Ab), H/H 7.8/ 24.4, normal MCV 82, RDW 17.4, PLT 482, PT 20.3, INR 1.95, PTT 29, glucose 93, BUN/Cr 25/1.0, GFR > 60, Na 133, K 4.2, HCO3 25, AG 10, Ca 7.9, albumin 2.6, globulin 3.1, TBil 0.5, alk phos 101, AST 21, ALT 30, TChol 153, TG 83, HDL 64, LDL 73, TSHR 2.74, HgbA1C 5.8, *low [Phenytoin] 9.3. 12/24/2016: *Total PSA 6.6, Free PSA 0.6, % Free PSA 9 12/24/2016: U/A- turbid, yellow, 1.020, 7.5, 25-50 RBC, packed WBC, packed bacteria, large Hgb, 100+ protein, pos nitrite, large esterase. 12/24/2016: UC > 100K GNR with ID/sens- pending. 12/25/2016: WBC 9, H/H 7.1/22, PLT 431, PT 22.2, INR 2.13, BUN/Cr 21/0.9, GFR > 60, Na 133, K 3.9, HCO3 27, AG 8, troponin < .01, low Fe 26, low TIBC 226, low Fe sat 11.5%, *low ferritin 17.4, B12 765, folate 17.5 12/25/2016: *CEA- pending 12/24/2016: XRY-CHEST XRAY, PA AND LATERAL- Hiatal hernia. Osteopenia with mild compression deformity of a lower thoracic vertebra. Basilar subsegmental atelectasis or scarring, otherwise unremarkable. 12/24/2016: US TRIPLEX OF LOWER EXTREMITIES, BILATERAL- 1. Normal triplex scan without evidence of deep venous thrombosis involving the lower extremities. 2. Right leg Popliteal cyst. 3. Bilateral subcutaneous edema. 12/24/2016: CT CHEST, ABDOMEN AND PELVIS WITH IV CONTRAST- CTA CHEST: Normal except large hiatal hernia. Asymmetric elevation of the right hemidiaphragm with atelectasis at the right base. CT SCAN ABDOMEN PELVIS: Large mass in the lower central pelvis (14.2 x 12.6 x 16.2 cm). This mass impress upon the vessels along the pelvic sidewall, but does not occlude the pelvic veins. This does not impress upon the IVC. The mass displaces the urinary bladder and compresses upon the prostate There are air collections within the mass and the mass may have engulfed bowel loops. This does not cause obstruction to the bowel. No suspicious liver lesion. Normal spleen and pancreas. Normal kidneys. Appendix is not identified. No ascites. No free air. Fat containing RIH. Enlarged prostate. Bladder "unremarkable," but displaced. DJD. Chronic compression deformity L4. 12/25/2016: EKG- ST @ 106, normal axis, borderline prolonged QT interval, early transition, occasional unifocal PVCs, no acute ischemic changes. 12/25/2016: EEG- normal EEG in [facility] state. Allergies/Medications Allergies: Coded Allergies: NO KNOWN ALLERGIES (01/11/14) Home Med List: Multivitamin (Daily Multiple Vitamin) 1 EACH TABLET 1 TAB PO DAILY SUPPLEMENT (Reported) Phenytoin Sodium Extended 100 MG CAPSULE 2 CAP PO BID SEIZURES (Reported) Warfarin Sodium 7.5 MG TABLET 0.5-1 TAB PO AD BLOOD THINNER (Reported) Current Medications: Current Medications Sig/Ghulam Start time Last Medication Dose Route Stop Time Status Admin Calcium Carbonate 500 MG ONCE ONE 12/25 1715 DC PO 12/25 1716 Ceftriaxone Sodium 1,000 MG 2200 12/25 2200 AC IV Ceftriaxone Sodium 1,000 MG DAILY 12/25 1000 DC IV Ceftriaxone Sodium 0 .STK-MED ONE 12/24 2156 DC .ROUTE Ceftriaxone Sodium 1,000 MG ONCE ONE 12/24 2130 DC 12/24 IV 12/24 2131 2159 Furosemide 40 MG ONCE ONE 12/25 0030 DC 12/25 IV 12/25 0031 0100 Multivitamins 1 TAB DAILY 12/25 1000 AC Therapeutic PO Phenytoin 200 MG BID 12/25 0011 AC 12/25 PO 1036 Past History Travel History Traveled to [place] past 21 day No Medical History Blood Transfusion Hx: No Neurological: seizure, childhood encephalitis EENT: NONE Cardiovascular: syncope (possible unwitnessed) Respiratory: pulmonary embolism (06/2014) Gastrointestinal: GERD (mild), hiatal hernia Hepatic: NONE Renal: BPH Musculoskeletal: osteopenia; TL compression fractures Psychiatric: NONE Endocrine: osteopenia Blood Disorders: anemia, PE (06/2014) Cancer(s): NONE 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 MOTHER, , Age 50-60; Cause: Cancer of unknown origin. BROTHER ([employer]). Relation not specified for: *No pertinent family history Psychosocial History Where Do You Live? Home Who Do You Live With? spouse (upstairs from his brother), alone Services at Home: None Primary Language: Filipino Smoking Status: Light Tobacco Smoker ETOH Use: denies use Illicit Drug Use: denies illicit drug use Living Will? no Power of Clinical Account Executive/HCP? no Other Social History: Single. No children. Light cigarette smoker. No EtOH or illicit drugs. Lives alone upstairs from his brother. Unemployed, on disability. Functional Ability ADLs Independent: dressing, eating, toileting, bathing. Ambulation: independent IADLs Independent: shopping, housework, finances, food prep, telephone, transportation , medication admin. Employment History Employment: Disability ECHO Results (as available) Date of last Echo 07/06/14 Review of Systems Review of Systems: Full 14 point ROS otherwise noncontributory and as above. Review of Systems Constitutional: Reports: weakness. Denies: chills, diaphoresis, fever, malaise, unexplained weight loss. EENTM: Denies: blurred vision, double vision, visual changes, eye pain, eye drainage, eye tearing, icterus, ear discharge, ear pain, ear redness, hearing changes, nasal congestion, epistaxis, nasal pain, throat pain, throat swelling, mouth pain, tooth pain. Cardiovascular: Reports: edema. Denies: chest pain, orthopena, palpitations, peripheral edema, syncope. Respiratory: Reports: short of breath (AZEVEDO). Denies: cough, hemoptysis, orthopnea, sputum production, stridor, wheezing. GI: Reports: abdominal pain, bloody stool (scant BRBPR). Denies: bloating, constipation, diarrhea, distention, bowel incontinence, melena, nausea, changes in stool, vomiting, steatorrhea. Genitourinary: Reports: dysuria, frequency. Denies: discharge, hematuria, hesitation, nocturia , pain, urgency. Musculoskeletal: Reports: back pain (TL compression fxs). Denies: gout, joint pain, joint swelling, muscle pain, muscle stiffness, neck pain. Skin: Denies: cysts, change in skin color, change in hair/nails, dryness, erythema, jaundice, lesions, lymphangitis, lumps, moles, rash. Neurological/Psychological: Reports: emotional problems (post encephalitis), weakness. Denies: anxiety, ataxia, cognitive dysfunction, confusion, depressed, dementia, headache, numbness, paresthesia, pre-existing deficit, petit mal seizures, tingling, tremors, tonic-clonic seizures, unable to move lower ext, unable to move upper ext. Hematologic/Endocrine: Denies: bruising, bleeding, polyuria, polydipsia. Immunologic/Allergic: Denies: splenectomy, HIV/AIDS, lymphadenopathy. All Other Systems: Reviewed and Negative Exam & Diagnostic Data Vital Signs and I&O Vital Signs Date Time Temp Pulse Resp B/P B/P Pulse O2 O2 Flow FiO2 Mean Ox Delivery Rate 12/25 0000 Room Air 12/25 0000 98.9 103 18 122/70 97 Room Air 12/24 2309 97.1 107 18 131/81 98 Room Air 12/24 2021 97.1 101 18 131/79 99 Room Air 12/24 1846 98 Room Air 12/24 1721 114 20 116/75 99 Room Air 12/24 1710 97.8 116 22 125/88 Intake & Output 12/25 1600 12/25 0400 12/24 1600 12/24 0400 12/23 1600 12/23 0400 Intake Total 680 Output Total 1050 200 Balance -370 -200 Intake, IV 0 Intake, Oral 680 Number 0 Bowel Movements Output, Urine 1050 200 Patient 182 lb 200 lb Weight Weight Chair scale Reported by Patient Measurement Method Physical Exam: Well-developed, slightly malnourished male, slightly flat affect, in no apparent distress. There appears to be some component of denial. Sclera anicteric. Conjunctiva pink. Oropharynx clear. No oral thrush. No aphthous ulcers. There is no adenopathy, thyromegaly, or JVD. No peripheral stigmata of inflammatory bowel disease or chronic liver disease on exam. No spiders on the anterior chest wall. No gynecomastia. No CVA tenderness. No spine tenderness. Lungs: clear to A&P, with slight decreased breath sounds at the bases B/L, R > L. No wheezing, rales, or rhonchi. Heart exam: regular rate rhythm, S1 and S2, without any murmur. Abdominal exam: normal bowel sounds, mass effect in right-mid abdomen and entire lower abdomen, especially in the suprapubic region, with hard nodularity, mildly tender, without guarding or rebound. Small reducible RIH. No organomegaly. No fluid shift. No pulsatile mass. Digital rectal exam: done by myself 12/25/16: Hard nodular ? prostate, nontender, with extrinsic mass palpated on the anterior rectal wall, with intact mucosa. No stool in vault, but scant BRB, obviously OB positive. Normal sphincter tone. No external hemorrhoids. No fissure. No perianal disease. Extremities: without cyanosis or clubbing. 2+ pitting edema B/L LE, without palpable cords. Distal pulses 2+ bilaterally. DTRs 1+ bilaterally. Bilateral Dupuytren's contractures of the pinkies. No palmar erythema. Alert and oriented x 3. No tremor. No asterixis. Motor 5/5 B/L. Nonfocal brief neurologic exam, although a detailed exam for peripheral neuropathy was deferred. Results Pertinent Lab Results: Laboratory Tests 12/25 12/25 12/25 [id number] Chemistry Sodium (137 - 145 mmol/L) 133 L Potassium (3.5 - 5.1 mmol/L) 3.9 Chloride (98 - 107 mmol/L) 99 Carbon Dioxide (22 - 30 mmol/L) 27 Anion Gap (5 - 16) 8 BUN (9 - 20 mg/dL) 21 H Creatinine (0.7 - 1.2 mg/dL) 0.9 Estimated GFR (>60 ml/min) > 60 BUN/Creatinine Ratio (7 - 25 %) 23.3 Iron (49 - 181 ug/dL) Cancelled 26 L TIBC (261 - 462 ug/dL) Cancelled 226 L Ferritin (17.9 - 464 ng/mL) Cancelled 17.4 L Troponin I (<0.11 ng/ml) < 0.01 Vitamin B12 (239 - 931 pg/mL) Cancelled 765 Folate (2.76 - 20.0 ng/mL) Cancelled 17.5 Coagulation PT (9.4 - 12.5 SEC) 22.2 H INR (0.90 - 1.17) 2.13 H Hematology CBC w Diff NO MAN DIFF REQ WBC (4.8 - 10.8 /CUMM) 9.0 RBC (4.70 - 6.10 /CUMM) 2.71 L Hgb (14.0 - 18.0 G/DL) 7.1 *L Hct (42 - 52 %) 22.0 L MCV (80.0 - 94.0 FL) 81.3 MCH (27.0 - 31.0 PG) 26.2 L RDW (11.5 - 14.5 %) 17.7 H Plt Count (130 - 400 /CUMM) 431 H MPV (7.4 - 10.4 FL) 7.2 L Gran % (42.2 - 75.2 %) 75.9 H Lymphocytes % (20.5 - 51.1 %) 11.0 L Monocytes % (1.7 - 9.3 %) 12.5 H Eosinophils % (0 - 5 %) 0.1 Basophils % (0.0 - 2.0 %) 0.5 Absolute Granulocytes (1.4 - 6.5 /CUMM) 6.8 H Absolute Lymphocytes (1.2 - 3.4 /CUMM) 1.0 L Absolute Monocytes (0.10 - 0.60 /CUMM) 1.1 H Absolute Eosinophils (0.0 - 0.7 /CUMM) 0 Absolute Basophils (0.0 - 0.2 /CUMM) 0 PUBS MCHC (33.0 - 37.0 G/DL) 32.3 L 12/25 12/24 12/24 0600 1835 1734 Chemistry Troponin I (<0.11 ng/ml) < 0.01 Albumin (3.5 - 5.0 g/dL) 2.7 L Carcinoembryonic Ag Pending Total PSA (0.00 - 4.00 ng/mL) 5.75 H TSH (0.270 - 4.200 uIU/mL) 2.680 Coagulation PT (9.4 - 12.5 SEC) 20.3 H INR (0.90 - 1.17) 1.95 H APTT (25 - 37 SEC) 29 Toxicology Phenytoin (10.0 - 20.0 ug/mL) 9.3 L Urines Urinalysis LIGHT H Urine Color (YEL,AMB,STR) YEL Urine Clarity (CLEAR) TURBD H Urine pH (5.0 - 8.0) 7.5 Ur Specific [place] (1.001 - 1.035) 1.020 Urine Protein (NEG,<30 MG/DL) 100 H Urine Ketones (NEG) NEG Urine Nitrite (NEG) POS H Urine Bilirubin (NEG) NEG Urine Urobilinogen (0.1 - 1.0 EU/dl) 0.2 Ur Leukocyte Esterase (NEG) LARGE H Ur Microscopic SEDIMENT EXAMINED Urine RBC (0 - 5 /HPF) 25-50 H Urine WBC (0 - 2 /HPF) PACKD H Ur Epithelial Cells (NONE,FEW) FEW Urine Bacteria (NEG/NONE) PACKD H Urine Mucus (FEW,NONE) MANY H Urine Hemoglobin (NEG) LARGE H Urine Glucose (N MG/DL) NEG Imaging/Other Studies: 12/24/2016: XRY-CHEST XRAY, PA AND LATERAL- Hiatal hernia. Osteopenia with mild compression deformity of a lower thoracic vertebra. Basilar subsegmental atelectasis or scarring, otherwise unremarkable. 12/24/2016: US TRIPLEX OF LOWER EXTREMITIES, BILATERAL- 1. Normal triplex scan without evidence of deep venous thrombosis involving the lower extremities. 2. Right leg Popliteal cyst. 3. Bilateral subcutaneous edema. 12/24/2016: CT CHEST, ABDOMEN AND PELVIS WITH IV CONTRAST- CTA CHEST: Normal except large hiatal hernia. Asymmetric elevation of the right hemidiaphragm with atelectasis at the right base. CT SCAN ABDOMEN PELVIS: Large mass in the lower central pelvis (14.2 x 12.6 x 16.2 cm). This mass impress upon the vessels along the pelvic sidewall, but does not occlude the pelvic veins. This does not impress upon the IVC. The mass displaces the urinary bladder and compresses upon the prostate There are air collections within the mass and the mass may have engulfed bowel loops. This does not cause obstruction to the bowel. No suspicious liver lesion. Normal spleen and pancreas. Normal kidneys. Appendix is not identified. No ascites. No free air. Fat containing RIH. Enlarged prostate. Bladder "unremarkable," but displaced. DJD. Chronic compression deformity L4. 12/25/2016: EKG- ST @ 106, normal axis, borderline prolonged QT interval, early transition, occasional unifocal PVCs, no acute ischemic changes. 12/25/2016: EEG- normal EEG in [facility] state. 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 Land, with worsening anemia, with H/H from that a.m. 7.8/24.4. Upon arrival to the ER, BP 125/88, P 116, R 22, T 97.8, O2 sat RA 99%. At first, the patient claimed he had no idea why he was in the ER. He was then complaining of generalized weakness, right-sided abdominal pain, and occasional GERD. He also noted bilateral lower extremity pitting edema for unknown duration. He denied any increased abdominal girth. *The patient has a known abdominal pelvic mass, dating back over 2 years, along with the anemia, for which he had previously seen Dr. French. It is clearly documented that Dr. French had previously urged the patient to undergo GI workup, but the patient refused. The patient now states he "knew nothing about the mass." He then later stated he "knew about it, but wasn't aware of the severity." 10/11/2014: CT AP with IV/po contrast- 3.0 x 1.8 x 2.4 cm oval, hypodense mass in the right hemipelvis, along with thoraco-lumbar compression fractures and markedly enlarged prostate. 10/17/2014: Abdominal pelvic ultrasound- limited study of cystic mass in the pelvis, with prostatomegaly. 11/12/2014: MRI of pelvis with and without gadolinium- complex cystic mass in the right lower quadrant at the base of the cecum with apparent communication to the appendix. The patient denied any change in stool caliber, diarrhea, constipation, obstipation, or tenesmus. He noted scant painless rectal bleeding only after defecation of brown stool, without any spontaneous lower GI bleeding or melena. He denied any blood transfusions prior to this admission. He denied any weight loss, but rather noted weight gain, in conjunction with the peripheral edema. He denied any fevers, chills, night sweats, change in appetite, jaundice, dark urine, light stool, or pruritus. With regards to the mild reflux, he denied any odynophagia, dysphagia, hematemesis, or early satiety. He denied any gross hematuria, bone pain, chest pain, shortness of breath, or hemoptysis. 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 He has noted some mild dyspnea on exertion lately. He denied any pleuritic pain. He initially denied any symptoms of UTI or URI to me, but later told the medical house staff he had urinary frequency and dysuria. He was put on IV Ceftriaxone for turbid urine with pyuria and microscopic hematuria, as well as for the gas-containing abdominal pelvic mass, which may be fistulizing and/or invading the urinary bladder. The patient is tolerating solids po without difficulty. He has never had an EGD or colonoscopy, nor any surgery. He has been seen by medicine, surgery, oncology, and neurology. *The patient is now willing to undergo treatment and workup of his abdominal pelvic mass, which he has been delinquent with for the past 2 years. Both of the patient's parents of some unknown malignancy, but there is no documented family history of GI malignancy. 12/24/2016: Admission labs- WBC 10 (82% granulocytes/8 granulocyte Ab), H/H 7.8/ 24.4, normal MCV 82, RDW 17.4, PLT 482, PT 20.3, INR 1.95, PTT 29, glucose 93, BUN/Cr 25/1.0, GFR > 60, Na 133, K 4.2, HCO3 25, AG 10, Ca 7.9, albumin 2.6, globulin 3.1, TBil 0.5, alk phos 101, AST 21, ALT 30, TChol 153, TG 83, HDL 64, LDL 73, TSHR 2.74, HgbA1C 5.8, *low [Phenytoin] 9.3. 12/24/2016: *Total PSA 6.6, Free PSA 0.6, % Free PSA 9 12/24/2016: U/A- turbid, yellow, 1.020, 7.5, 25-50 RBC, packed WBC, packed bacteria, large Hgb, 100+ protein, pos nitrite, large esterase. 12/24/2016: UC > 100K GNR with ID/sens- pending. 12/25/2016: WBC 9, H/H 7.1/22, PLT 431, PT 22.2, INR 2.13, BUN/Cr 21/0.9, GFR > 60, Na 133, K 3.9, HCO3 27, AG 8, troponin < .01, low Fe 26, low TIBC 226, low Fe sat 11.5%, *low ferritin 17.4, B12 765, folate 17.5 12/25/2016: *CEA- pending 12/24/2016: XRY-CHEST XRAY, PA AND LATERAL- Hiatal hernia. Osteopenia with mild compression deformity of a lower thoracic vertebra. Basilar subsegmental atelectasis or scarring, otherwise unremarkable. 12/24/2016: US TRIPLEX OF LOWER EXTREMITIES, BILATERAL- 1. Normal triplex scan without evidence of deep venous thrombosis involving the lower extremities. 2. Right leg Popliteal cyst. 3. Bilateral subcutaneous edema. 12/24/2016: CT CHEST, ABDOMEN AND PELVIS WITH IV CONTRAST- CTA CHEST: Normal except large hiatal hernia. Asymmetric elevation of the right hemidiaphragm with atelectasis at the right base. CT SCAN ABDOMEN PELVIS: Large mass in the lower central pelvis (14.2 x 12.6 x 16.2 cm). This mass impress upon the vessels along the pelvic sidewall, but does not occlude the pelvic veins. This does not impress upon the IVC. The mass displaces the urinary bladder and compresses upon the prostate There are air collections within the mass and the mass may have engulfed bowel loops. This does not cause obstruction to the bowel. No suspicious liver lesion. Normal spleen and pancreas. Normal kidneys. Appendix is not identified. No ascites. No free air. Fat containing RIH. Enlarged prostate. Bladder "unremarkable," but displaced. DJD. Chronic compression deformity L4. 12/25/2016: EKG- ST @ 106, normal axis, borderline prolonged QT interval, early transition, occasional unifocal PVCs, no acute ischemic changes. 12/25/2016: EEG- normal EEG in [place] state. *At the moment, I am not convinced that the patient has a primary colonic neoplasm. He could have a mucinous cystadenoma/mucinous cystadenocarcinoma of the appendix, which has grown over the past 2 years, since 09/2014. Other possibilities could include a neuroendocrine tumor originating in the appendix/ ileum. Additionally, it appears that the growth is communicating and/or invading the urinary bladder. A less likely possibility could include a primary urologic tumor encapsulating the bowel. Doubt IBD and/or lymphoma. Please note , the patient has a huge prostate, which is rock hard and nodular on exam. SUGGEST: Hold Coumadin. Agree with IV heparin for now. Follow-up with numerous consultants. *Agree with CT AP with IV/po contrast & simultaneous cystogram ( bladder contrast through Sanchez), as outlined by Dr. Proctor, of surgery. *Continue IV Ceftriaxone. *Follow-up cultures. *Check INR daily for now, aiming for < 1.50, while on IV heparin. *Depending on the results of the imaging studies, the patient may need definitive operative intervention, as opposed to endoscopic intervention. (There is a consideration for EGD/colonoscopy early next week, depending on the results of the upcoming imaging studies, which will be reviewed with radiology and surgery. If surgery is felt to be needed, EGD/colonoscopy will be put on hold. *Therefore, I am not yet ordering a bowel prep). Colonoscopy will be technically difficult in this patient, based on his anatomy, and if performed, a pediatric colonoscope would be used. *Consider urology consult. *I would not feed the patient with anything more than clears po over the weekend, in anticipation of the above. *IV heparin would have to be held a few hours preoperatively. The ultimate decision for long-term anti-coagulation therapy will be made by hematology, after the above is sorted out. T&C 2u PRBC. Check CBC BID for now. Keep Hgb > 7 (no documented ASHD). Supplemental oxygen as needed. *Await 12/25/2016: CEA. The above findings and recommendations were discussed with the patient & the medical house staff. The case was also discussed with Dr. Proctor and Dr. French on 12/25/2016. Dr. Varma will be covering GI & Dr. Contreras will be covering surgery this weekend, and they will help coordinate the above, depending on the results of the imaging studies. Problem List: 1. Pelvic mass in male 2. Abdominal pain 3. Iron deficiency anemia 4. Abnormal CT of the abdomen 5. Rectal bleeding 6. Malnutrition 7. UTI (urinary tract infection) Copies To: ANNIKA SOSA,MANPREET Minaya; HOLLIE SOSA,CASSIDY Leonardo; JEAN SOSA,CHRISTOPHER Winn; COLLEEN SOSA, GARRETT; SANDRA SOSA,FELISHA; ANAI SOSA,ONEYDA Leger Consult Acknowledgment - Thank you for your consult request.
--- NOTE | 2016-12-25 10:02 | Cons- General Surgery ---
General Information and HPI Consulting Request Date of Consult: 12/25/16 Requested By: MANPREET ROBLERO MD History of Present Illness: Patient is a 61-year-old male who presents to the medical service with progressive lower extremity edema and fatigue. Patient describes a history of abdominal pain which prompted imaging 2 years ago. Findings at that time showed a 2 cm cystic mass, complex in the pelvis related to the appendix and/or cecum. He was seen by medical oncology who recommended a GI workup for evaluation of malignancy. Patient apparently was lost to follow-up and did not pursue the recommended course. Patient now presents with a palpable mass in his abdomen. It is tender. He is tolerating a regular diet without difficulties. No fevers chills or sweats. He does complain of one episode of scan blood per rectum. Allergies/Medications Allergies: Coded Allergies: NO KNOWN ALLERGIES (01/11/14) Home Med List: Multivitamin (Daily Multiple Vitamin) 1 EACH TABLET 1 TAB PO DAILY SUPPLEMENT (Reported) Phenytoin Sodium Extended 100 MG CAPSULE 2 CAP PO BID SEIZURES (Reported) Warfarin Sodium 7.5 MG TABLET 0.5-1 TAB PO AD BLOOD THINNER (Reported) Current Medications: Current Medications Sig/Ghulam Start time Last Medication Dose Route Stop Time Status Admin Ceftriaxone Sodium 1,000 MG 2200 12/25 2200 AC IV Ceftriaxone Sodium 1,000 MG DAILY 12/25 1000 DC IV Ceftriaxone Sodium 0 .STK-MED ONE 12/24 2156 DC .ROUTE Ceftriaxone Sodium 1,000 MG ONCE ONE 12/240 DC 12/24 IV 12/24 2130 2159 Furosemide 40 MG ONCE ONE 12/25 0030 DC 12/25 IV 12/25 0031 0100 Multivitamins 1 TAB DAILY 12/25 1000 AC Therapeutic PO Phenytoin 200 MG BID 12/25 0011 AC 12/25 PO 0100 Past History Medical History Blood Transfusion Hx: No Neurological: seizure EENT: NONE Cardiovascular: NONE Respiratory: pulmonary embolism Gastrointestinal: NONE Hepatic: NONE Renal: NONE Musculoskeletal: NONE Psychiatric: NONE Endocrine: NONE Blood Disorders: anemia Cancer(s): NONE [employer]/Reproductive: NONE Surgical History Pertinent Surgical History: none Family History Relations & Conditions If Any: Relation not specified for: *No pertinent family history Psychosocial History Where Do You Live? Home Who Do You Live With? alone Services at Home: None Smoking Status: Light Tobacco Smoker ETOH Use: denies use Illicit Drug Use: denies illicit drug use Functional Ability ADLs Independent: dressing, eating, toileting, bathing. Ambulation: independent IADLs Independent: shopping, housework, finances, food prep, telephone, transportation , medication admin. Review of Systems Review of Systems: No chest pain no dyspnea on exertion. Lower abdominal pain per HPI. No dysuria. Lower extremity edema which is new per HPI. History of pulmonary embolism. Remainder 12 points negative Exam & Diagnostic Data Vital Signs and I&O Vital Signs Date Time Temp Pulse Resp B/P B/P Pulse O2 O2 Flow FiO2 Mean Ox Delivery Rate 12/25 0000 Room Air 12/25 0000 98.9 103 18 122/70 97 Room Air 12/24 2309 97.1 107 18 131/81 98 Room Air 12/24 2021 97.1 101 18 131/79 99 Room Air 12/24 1846 98 Room Air 12/24 1721 114 20 116/75 99 Room Air 12/24 1710 97.8 116 22 125/88 Intake & Output 12/25 1600 12/25 0800 12/25 0000 12/24 1600 12/24 0800 12/24 0000 Intake Total 200 Output Total 750 200 Balance -550 -200 Intake, IV 0 Intake, Oral 200 Number 0 Bowel Movements Output, Urine 750 200 Patient 182 lb 200 lb Weight Weight Chair scale Reported by Patient Measurement Method Physical Exam: Gen.: He looks his stated age. He is of average body habitus and no significant distress. HEENT: Anicteric PERRL EOMI Neck: No JVD thyromegaly or adenopathy. Chest: Clear bilaterally normal excursion and effort. Nontender. Abdomen: Soft, he has a large mass emanating from the pelvis extending to the supraumbilical region. It is mildly tender in the suprapubic region. No guarding. No hernia. Extremities: Bilateral pitting edema, 2+ to the thigh. Normal range of motion no cyanosis or clubbing. Last 24 Hours of Labs: Laboratory Tests 12/25 12/25 12/25 UNK 0639 0610 Chemistry Sodium (137 - 145 mmol/L) 133 L Potassium (3.5 - 5.1 mmol/L) 3.9 Chloride (98 - 107 mmol/L) 99 Carbon Dioxide (22 - 30 mmol/L) 27 Anion Gap (5 - 16) 8 BUN (9 - 20 mg/dL) 21 H Creatinine (0.7 - 1.2 mg/dL) 0.9 Estimated GFR (>60 ml/min) > 60 BUN/Creatinine Ratio (7 - 25 %) 23.3 Iron (49 - 181 ug/dL) Cancelled 26 L TIBC (261 - 462 ug/dL) Cancelled 226 L Ferritin (17.9 - 464 ng/mL) Cancelled 17.4 L Troponin I (<0.11 ng/ml) < 0.01 Vitamin B12 (239 - 931 pg/mL) Cancelled Pending Folate (2.76 - 20.0 ng/mL) Cancelled Pending Coagulation PT (9.4 - 12.5 SEC) 22.2 H INR (0.90 - 1.17) 2.13 H Hematology CBC w Diff NO MAN DIFF REQ WBC (4.8 - 10.8 /CUMM) 9.0 RBC (4.70 - 6.10 /CUMM) 2.71 L Hgb (14.0 - 18.0 G/DL) 7.1 *L Hct (42 - 52 %) 22.0 L MCV (80.0 - 94.0 FL) 81.3 MCH (27.0 - 31.0 PG) 26.2 L RDW (11.5 - 14.5 %) 17.7 H Plt Count (130 - 400 /CUMM) 431 H MPV (7.4 - 10.4 FL) 7.2 L Gran % (42.2 - 75.2 %) 75.9 H Lymphocytes % (20.5 - 51.1 %) 11.0 L Monocytes % (1.7 - 9.3 %) 12.5 H Eosinophils % (0 - 5 %) 0.1 Basophils % (0.0 - 2.0 %) 0.5 Absolute Granulocytes (1.4 - 6.5 /CUMM) 6.8 H Absolute Lymphocytes (1.2 - 3.4 /CUMM) 1.0 L Absolute Monocytes (0.10 - 0.60 /CUMM) 1.1 H Absolute Eosinophils (0.0 - 0.7 /CUMM) 0 Absolute Basophils (0.0 - 0.2 /CUMM) 0 PUBS MCHC (33.0 - 37.0 G/DL) 32.3 L 12/24 12/24 1835 1734 Chemistry Troponin I (<0.11 ng/ml) < 0.01 Albumin (3.5 - 5.0 g/dL) 2.7 L Total PSA (0.00 - 4.00 ng/mL) 5.75 H TSH (0.270 - 4.200 uIU/mL) 2.680 Coagulation PT (9.4 - 12.5 SEC) 20.3 H INR (0.90 - 1.17) 1.95 H APTT (25 - 37 SEC) 29 Toxicology Phenytoin (10.0 - 20.0 ug/mL) 9.3 L Urines Urinalysis LIGHT H Urine Color (YEL,AMB,STR) YEL Urine Clarity (CLEAR) TURBD H Urine pH (5.0 - 8.0) 7.5 Ur Specific [place] (1.001 - 1.035) 1.020 Urine Protein (NEG,<30 MG/DL) 100 H Urine Ketones (NEG) NEG Urine Nitrite (NEG) POS H Urine Bilirubin (NEG) NEG Urine Urobilinogen (0.1 - 1.0 EU/dl) 0.2 Ur Leukocyte Esterase (NEG) LARGE H Ur Microscopic SEDIMENT EXAMINED Urine RBC (0 - 5 /HPF) 25-50 H Urine WBC (0 - 2 /HPF) PACKD H Ur Epithelial Cells (NONE,FEW) FEW Urine Bacteria (NEG/NONE) PACKD H Urine Mucus (FEW,NONE) MANY H Urine Hemoglobin (NEG) LARGE H Urine Glucose (N MG/DL) NEG Imaging Results: CT scan of the abdomen pelvis dated 12/24/2016 was personally reviewed. This was performed with IV contrast and without oral contrast. Findings show a large mass emanating from the pelvis. It appears to have at least one bowel loop associated with it. There appears to be some scant gas within it. CT scan of the and pelvis dated 2014 was reviewed. At that time there was a 2 cm mass in the pelvis, complex. MRI 2014 showed complex cystic mass associated with the cecum and/or appendix. All images were reviewed with interventional radiologist. Assessment/Plan Assessment/Plan This is a 61-year-old male who presented 2 years ago with a small cystic mass in the right hemipelvis. He now has a very large tumor filling the pelvis and extending up into the abdominal cavity. I have reviewed his images with radiology. 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 From initial imaging in 2014, it appears to emanate from the appendix. On current imaging this mass has gas within it and there is concern with air in his bladder as well. Therefore there may be fistulization and/or invasion into the bladder. Furthermore there may be invasion into a separate site on his right colon and/or rectum. For that reason I recommend repeat CT scan with IV and oral contrast with concurrent CT cystogram(bladder contrast through price). This will help delineate extent of disease and help with operative planning. Given the mucinous nature of this neoplasm and the concern for spillage and/or peritoneal seeding, I do NOT recommend IR biopsy. Furthermore I would not pursue colonoscopy until after his CT scan has been performed and we have a better idea as to the involvement of colon with possible tumor fistulization. In the interim I would allow his INR to normalize. If necessary IV heparin can be started. Jun Contreras MD to cover this weekend. Anticipate operative intervention early next week, pending CT workup as outlined above. Consult Acknowledgment - Thank you for your consult request.
--- NOTE | 2016-12-25 14:46 | PN- Att Addend ---
Attending MD Review Statement Attending Statement Attending MD Statement: examined this patient, discuss w/resident/PA/KITCHEN CLEANER, agreed w/resident/PA/KITCHEN CLEANER, reviewed EMR data (avail), discussed w/nursing, discussed w/ case mgmt Attending Assessment/Plan: Laboratory Tests 12/25/16 1000: Vitamin B12 Cancelled 12/25/16 0639: Iron Cancelled, TIBC Cancelled, Ferritin Cancelled, Folate Cancelled 12/25/16 0610: Anion Gap 8, Estimated GFR > 60, BUN/Creatinine Ratio 23.3, Iron 26 L, TIBC 226 L, Ferritin 17.4 L, Troponin I < 0.01, Vitamin B12 765, Folate 17.5, PT 22.2 H, INR 2.13 H, CBC w Diff NO MAN DIFF REQ, RBC 2.71 L, MCV 81.3, MCH 26.2 L, RDW 17.7 H, MPV 7.2 L, Gran % 75.9 H, Lymphocytes % 11.0 L, Monocytes % 12.5 H, Eosinophils % 0.1, Basophils % 0.5, Absolute Granulocytes 6.8 H, Absolute Lymphocytes 1.0 L, Absolute Monocytes 1.1 H, Absolute Eosinophils 0, Absolute Basophils 0, PUBS MCHC 32.3 L 12/25/16 0600: Carcinoembryonic Ag Pending 12/24/16 1835: Urinalysis LIGHT H, Urine Color YEL, Urine Clarity TURBD H, Urine pH 7.5, Ur Specific [place] 1.020, Urine Protein 100 H, Urine Ketones NEG, Urine Nitrite POS H, Urine Bilirubin NEG, Urine Urobilinogen 0.2, Ur Leukocyte Esterase LARGE H, Ur Microscopic SEDIMENT EXAMINED, Urine RBC 25-50 H, Urine WBC PACKD H, Ur Epithelial Cells FEW, Urine Bacteria PACKD H, Urine Mucus MANY H, Urine Hemoglobin LARGE H, Urine Glucose NEG 12/24/16 1734: Troponin I < 0.01, Albumin 2.7 L, Total PSA 5.75 H, TSH 2.680, PT 20.3 H, INR 1.95 H, APTT 29, Phenytoin 9.3 L Vital Signs Date Time Temp Pulse Resp B/P B/P Pulse O2 O2 Flow FiO2 Mean Ox Delivery Rate 12/25 0000 Room Air 12/25 0000 98.9 103 18 122/70 97 Room Air 12/24 2309 97.1 107 18 131/81 98 Room Air 12/24 2021 97.1 101 18 131/79 99 Room Air 12/24 1846 98 Room Air 12/24 1721 114 20 116/75 99 Room Air 12/24 1710 97.8 116 22 125/88 Patient seen and examined at bedside. Discussed with patient the care plan. 61-year-old male admitted with worsening leg swelling as well as syncopal episode 1 week ago and yesterday as well as some dysuria with increased urinary frequency and some hematochezia. Patient is not a very good historian but says that his symptoms started about a month and a half to 2 months ago with bilateral leg swelling and abdominal distention. Patient was sent by the PCP to ER for worsening anemia for which he has seen Dr. French in the hematology oncology clinic and was told that he may have a GI malignancy for which he needed a workup, which patient has been refusing up till now. Patient had a CAT scan done yesterday which showed the following findings- "Large mass in the lower central pelvis. This mass impress upon the vessels along the pelvic sidewall but does not occlude the pelvic veins. This does not impress upon the IVC. There is air collections within the mass and the mass may have engulfed bowel loops. This does not cause obstruction to the bowel." We have consulted surgery and I spoke with Dr. Procotr. He wants to get a repeat CT abdomen and pelvis with IV and by mouth contrast as well as bladder cystogram done at the same time. We will follow-up on the results and decide the further plan based on the CAT scan finding. Patient currently is more willing to undergo further treatment. Patient is requesting to see another oncologist and we have consulted Dr. Bajwa and he will see the patient on Wednesday.
--- NOTE | 2016-12-25 15:00 | Cons- Neurology ---
General Information and HPI Consulting Request Date of Consult: 12/25/16 Requested By: MANPREET ROBLERO MD Source of Information: patient Exam Limitations: poor historian History of Present Illness: Patient is poor historian He has been followed by Dr. 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 There apparently have been no convulsive activities documented recently He was found to be extremely anemic on initial evaluation Allergies/Medications Allergies: Coded Allergies: NO KNOWN ALLERGIES (01/11/14) Home Med List: Multivitamin (Daily Multiple Vitamin) 1 EACH TABLET 1 TAB PO DAILY SUPPLEMENT (Reported) Phenytoin Sodium Extended 100 MG CAPSULE 2 CAP PO BID SEIZURES (Reported) Warfarin Sodium 7.5 MG TABLET 0.5-1 TAB PO AD BLOOD THINNER (Reported) Current Medications: Current Medications Sig/Ghulam Start time Last Medication Dose Route Stop Time Status Admin Ceftriaxone Sodium 1,000 MG 2200 12/25 2200 AC IV Ceftriaxone Sodium 1,000 MG DAILY 12/25 1000 DC IV Ceftriaxone Sodium 0 .STK-MED ONE 12/246 DC .ROUTE Ceftriaxone Sodium 1,000 MG ONCE ONE 12/240 DC 12/24 IV 12/24 2130 2159 Furosemide 40 MG ONCE ONE 12/25 0030 DC 12/25 IV 12/25 0031 0100 Multivitamins 1 TAB DAILY 12/25 1000 AC Therapeutic PO Phenytoin 200 MG BID 12/25 0011 AC 12/25 PO 1036 Review of Systems Review of Systems: Denies headache, diplopia, vertigo, swallowing difficulty, tongue biting, chest pain, breathing difficulty, vomiting, fever He did have urinary retention He has noted swelling in the lower extremities Other systems reviewed and negative Past History Travel History Traveled to [place] past 21 day No Medical History Blood Transfusion Hx: No Neurological: seizure EENT: NONE Cardiovascular: NONE Respiratory: pulmonary embolism Gastrointestinal: NONE Hepatic: NONE Renal: NONE Musculoskeletal: NONE Psychiatric: NONE Endocrine: NONE Blood Disorders: anemia Cancer(s): NONE REJECT OPENER/Reproductive: NONE Surgical History Surgical History: none Family History Relations & Conditions If Any: Relation not specified for: *No pertinent family history Psychosocial History Where Do You Live? Home Who Do You Live With? alone Services at Home: None Smoking Status: Light Tobacco Smoker ETOH Use: denies use Illicit Drug Use: denies illicit drug use Other Social History: Patient states that both parents had an -encephalitis Functional Ability ADLs Independent: dressing, eating, toileting, bathing. Ambulation: independent IADLs Independent: shopping, housework, finances, food prep, telephone, transportation , medication admin. Exam & Diagnostic Data Vital Signs and I&O Vital Signs Date Time Temp Pulse Resp B/P B/P Pulse O2 O2 Flow FiO2 Mean Ox Delivery Rate 12/25 0000 Room Air 12/25 0000 98.9 103 18 122/70 97 Room Air 12/24 2309 97.1 107 18 131/81 98 Room Air 12/24 2021 97.1 101 18 131/79 99 Room Air 12/24 1846 98 Room Air 12/24 1721 114 20 116/75 99 Room Air 12/24 1710 97.8 116 22 125/88 Intake & Output 12/25 1600 12/25 0800 12/25 0000 Intake Total 200 Output Total 750 200 Balance -550 -200 Intake, IV 0 Intake, Oral 200 Number 0 Bowel Movements Output, Urine 750 200 Patient 182 lb 200 lb Weight Weight Chair scale Reported by Patient Measurement Method Alert and oriented Language functions attention span recall intact Fully cooperative during examination and follows all commands Heart sounds normal, no carotid bruits, distal pulses intact Extraocular movements full, pupils equal and reactive, fundi benign, visual abdul intact, no facial weakness or facial sensory loss, palate tongue and shoulders intact, hearing grossly intact Normal tone and strength upper and lower extremities Sensory examination intact to touch and position sense coord functions intact Gait normal Deep tendon reflexes 1+ bilateral, plantar response flexor Last 48 Hours of Lab Results: Laboratory Tests 12/25 12/25 12/25 UNK 0639 0610 Chemistry Sodium (137 - 145 mmol/L) 133 L Potassium (3.5 - 5.1 mmol/L) 3.9 Chloride (98 - 107 mmol/L) 99 Carbon Dioxide (22 - 30 mmol/L) 27 Anion Gap (5 - 16) 8 BUN (9 - 20 mg/dL) 21 H Creatinine (0.7 - 1.2 mg/dL) 0.9 Estimated GFR (>60 ml/min) > 60 BUN/Creatinine Ratio (7 - 25 %) 23.3 Iron (49 - 181 ug/dL) Cancelled 26 L TIBC (261 - 462 ug/dL) Cancelled 226 L Ferritin (17.9 - 464 ng/mL) Cancelled 17.4 L Troponin I (<0.11 ng/ml) < 0.01 Vitamin B12 (239 - 931 pg/mL) Cancelled 765 Folate (2.76 - 20.0 ng/mL) Cancelled 17.5 Coagulation PT (9.4 - 12.5 SEC) 22.2 H INR (0.90 - 1.17) 2.13 H Hematology CBC w Diff NO MAN DIFF REQ WBC (4.8 - 10.8 /CUMM) 9.0 RBC (4.70 - 6.10 /CUMM) 2.71 L Hgb (14.0 - 18.0 G/DL) 7.1 *L Hct (42 - 52 %) 22.0 L MCV (80.0 - 94.0 FL) 81.3 MCH (27.0 - 31.0 PG) 26.2 L RDW (11.5 - 14.5 %) 17.7 H Plt Count (130 - 400 /CUMM) 431 H MPV (7.4 - 10.4 FL) 7.2 L Gran % (42.2 - 75.2 %) 75.9 H Lymphocytes % (20.5 - 51.1 %) 11.0 L Monocytes % (1.7 - 9.3 %) 12.5 H Eosinophils % (0 - 5 %) 0.1 Basophils % (0.0 - 2.0 %) 0.5 Absolute Granulocytes (1.4 - 6.5 /CUMM) 6.8 H Absolute Lymphocytes (1.2 - 3.4 /CUMM) 1.0 L Absolute Monocytes (0.10 - 0.60 /CUMM) 1.1 H Absolute Eosinophils (0.0 - 0.7 /CUMM) 0 Absolute Basophils (0.0 - 0.2 /CUMM) 0 PUBS MCHC (33.0 - 37.0 G/DL) 32.3 L 04/28 04/27 04/27 0600 1835 1734 Chemistry Troponin I (<0.11 ng/ml) < 0.01 Albumin (3.5 - 5.0 g/dL) 2.7 L Carcinoembryonic Ag Pending Total PSA (0.00 - 4.00 ng/mL) 5.75 H TSH (0.270 - 4.200 uIU/mL) 2.680 Coagulation PT (9.4 - 12.5 SEC) 20.3 H INR (0.90 - 1.17) 1.95 H APTT (25 - 37 SEC) 29 Toxicology Phenytoin (10.0 - 20.0 ug/mL) 9.3 L Urines Urinalysis LIGHT H Urine Color (YEL,AMB,STR) YEL Urine Clarity (CLEAR) TURBD H Urine pH (5.0 - 8.0) 7.5 Ur Specific [place] (1.001 - 1.035) 1.020 Urine Protein (NEG,<30 MG/DL) 100 H Urine Ketones (NEG) NEG Urine Nitrite (NEG) POS H Urine Bilirubin (NEG) NEG Urine Urobilinogen (0.1 - 1.0 EU/dl) 0.2 Ur Leukocyte Esterase (NEG) LARGE H Ur Microscopic SEDIMENT EXAMINED Urine RBC (0 - 5 /HPF) 25-50 H Urine WBC (0 - 2 /HPF) PACKD H Ur Epithelial Cells (NONE,FEW) FEW Urine Bacteria (NEG/NONE) PACKD H Urine Mucus (FEW,NONE) MANY H Urine Hemoglobin (NEG) LARGE H Urine Glucose (N MG/DL) NEG Imaging/Other Studies: Phenytoin level 9.3 Assessment/Plan Assessment: Transient neurologic events of unclear nature; possible complex partial seizure Unfortunately there are no witnesses to the events Recommendations: Electroencephalogram; continue current dose of phenytoin unless there are clearly epileptogenic events on EEG in which case it would be slightly increased in dosage Consult Acknowledgment - Thank you for your consult request.
--- NOTE | 2016-12-25 15:43 | PN- Student ---
Subjective Subjective: Medical Student H&P: Limitations: patient is poor historian and it is difficult to extract chronological information CC: bilateral lower extremity edema, abdominal mass, and anemia per PCP HPI: Mr. 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 The patient was noted to have an abdominal mass ~2 years ago, for which he has refused further workup. Since discovering the mass, he has had intermittent anemia and chronic BLE edema. Over the past week, his edema has worsened to the point that he is not able to fit into his pants or shoes. This was also accompanied by an unwitnessed syncopal episode 1 week ago and a second event yesterday morning. These events were preceeded by palpitations, lightheadedness, and blurry vision. He has further admitted to fatigue and dyspnea, especially with ambulation. All of this prompted him to visit his PCP on 12/24/16, where he was found to be anemic (H&H 7.8/24.4) and subsequently encouraged to come to the ED. 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 Lives alone with some assistance from his brother, who lives downstairs from him. Fairly independent with ADLs. Family: strong family history of multiple cancer types ROS: General: reports weakness and fatigue. Denies weight loss, fever, chills Neuro: reports syncope and seizures. Denies head injury, headache HEENT: reports blurry vision preceding syncope Neck: reports no symptoms CV: reports palpitations and peripheral edema. Denies CP Pulmonary: reports dyspnea, especially with exertion. Denies orthopnea, PND, coughing, wheezing GI: reports abdominal pain, distension, fullness, pressure, mucous stools, bloody stools, and occasional BRBPR. Denies N/V/C/D : reports occasional hematuria and dysuria. Denies increased frequency or difficulty initiating MSK: reports no symptoms Endocrine: reports no symptoms Skin: reports no symptoms Psych: reports anxiety and feelings of loneliness Current Medications Sig/Ghulam Start time Last Medication Dose Route Stop Time Status Admin Ceftriaxone Sodium 1,000 MG 0 12/25 2199 AC IV Ceftriaxone Sodium 1,000 MG DAILY 12/25 1000 DC IV Ceftriaxone Sodium 0 .STK-MED ONE 12/25 2155 DC .ROUTE Ceftriaxone Sodium 1,000 MG ONCE ONE 12/24 2129 DC 12/24 IV 12/24 Furosemide 40 MG ONCE ONE 12/25 0030 DC 12/25 IV 12/251 0100 Multivitamins 1 TAB DAILY 12/25 1000 AC Therapeutic PO Phenytoin 200 MG BID 12/25 0011 AC 12/25 PO 1036 Objective Objective: Vital Signs Date Time Temp Pulse Resp B/P B/P Pulse O2 O2 Flow FiO2 Mean Ox Delivery Rate 12/25 0000 Room Air 12/25 0000 98.9 103 18 122/70 97 Room Air 12/24 2309 97.1 107 18 131/81 98 Room Air 12/24 2021 97.1 101 18 131/79 99 Room Air 12/24 1846 98 Room Air 12/24 1721 114 20 116/75 99 Room Air 12/24 1710 97.8 116 22 125/88 Intake & Output 12/25 1600 12/25 0800 12/25 0000 Intake Total 480 200 Output Total 300 750 200 Balance 180 -550 -200 Intake, IV 0 Intake, Oral 480 200 Number 0 Bowel Movements Output, Urine 300 750 200 Patient 182 lb 200 lb Weight Weight Chair scale Reported by Patient Measurement Method Telemetry Monitoring: NSR to sinus tachycardia, rate 100 - 140 bpm General: comfortable, slightly anxious Neuro: no focal deficits, A&O x3 HEENT: sclera anicteric, moist mucosa Neck: Supple without adenopathy CV: tachycardic, normal S1, S2. No murmurs Pulmonary: CTA, normal air movement GI: soft and distended. Suprapubic and epigastric tenderness to light palpation. Suprapubic mass palpable. No peritoniteal signs. Bowel sounds present. Extremities: BLE 2+ pitting edema to mid thigh. Pulses difficult to palpate. Skin: no evidence of chronic wounds or skin changes Results Results: Laboratory Tests 12/25/16 0610: Anion Gap 8, Estimated GFR > 60, BUN/Creatinine Ratio 23.3, Iron 26 L, TIBC 226 L, Ferritin 17.4 L, Troponin I < 0.01, Vitamin B12 765, Folate 17.5, PT 22.2 H, INR 2.13 H, CBC w Diff NO MAN DIFF REQ, RBC 2.71 L, MCV 81.3, MCH 26.2 L, RDW 17.7 H, MPV 7.2 L, Gran % 75.9 H, Lymphocytes % 11.0 L, Monocytes % 12.5 H, Eosinophils % 0.1, Basophils % 0.5, Absolute Granulocytes 6.8 H, Absolute Lymphocytes 1.0 L, Absolute Monocytes 1.1 H, Absolute Eosinophils 0, Absolute Basophils 0, PUBS MCHC 32.3 L 12/25/16 0600: Carcinoembryonic Ag Pending 12/24/16 1835: Urinalysis LIGHT H, Urine Color YEL, Urine Clarity TURBD H, Urine pH 7.5, Ur Specific [place] 1.020, Urine Protein 100 H, Urine Ketones NEG, Urine Nitrite POS H, Urine Bilirubin NEG, Urine Urobilinogen 0.2, Ur Leukocyte Esterase LARGE H, Ur Microscopic SEDIMENT EXAMINED, Urine RBC 25-50 H, Urine WBC PACKD H, Ur Epithelial Cells FEW, Urine Bacteria PACKD H, Urine Mucus MANY H, Urine Hemoglobin LARGE H, Urine Glucose NEG 12/24/16 1734: Troponin I < 0.01, Albumin 2.7 L, Total PSA 5.75 H, TSH 2.680, PT 20.3 H, INR 1.95 H, APTT 29, Phenytoin 9.3 L Microbiology 12/24 1836 URINE ROUT: Urine Culture - RES GRAM NEGATIVE RODS CT Chest, Abdomen, Pelvis: CTA CHEST: Normal. CT SCAN ABDOMEN PELVIS: Large mass in the lower central pelvis. This mass impress upon the vessels along the pelvic sidewall but does not occlude the pelvic veins. This does not impress upon the IVC. There is air collections within the mass and the mass may have engulfed bowel loops. This does not cause obstruction to the bowel. Venous Doppler Ultrasound: IMPRESSION: 1. Normal triplex scan without evidence of deep venous thrombosis involving the lower extremities. 2. Right leg Popliteal cyst. 3. Bilateral subcutaneous edema. Assessment/Plan Assessment: Mr. 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 Plan: Acute Normocytic Anemia: CBC this am showed H&H of 7.1/22.0. This is lower than at his physician's office yesterday. RBCs in urine, continues to report blood on /mixed in with stool. Is tachycardic. Likely 2/2 abdominal mass. * Transfuse 1u pRBCs now * Continue to monitor H&H, transfuse if dropping * Consult Heme/Onc * Workup of abdominal mass as described below Abdominal Mass, Presumed Malignancy: Has been present for approximately 2 years with incomplete evaluation d/t patient refusal. CT scan reviewed by Surgeon, felt to potentially be mucinous neoplasm. Patient initially reluctant to further diagnostics/procedures, but has agreed to move forward with definitive diagnostics. * GI consult * Surgical Consult and recommendations as follows * CT scan with IV and oral contrast + concurrent CT cystogram * Normalize INR in anticipation of surgical procedures/interventions beginning next week * Hold off on colonoscopy until further imaging completed * DO NOT perform IR biopsy d/t potentially malignant mucinous neoplasm and risk of seeding * Send CEA * Urine Cytology Epilepsy 2/2 encephalitis: Managed as outpatient on Dilantin 200mg BID. Has reported questionable seizure vs syncope activity, but has been unwitnessed. Reports compliance with medication regimen. * Neurology consult * Continue Dilantin 200 mg BID * EEG was normal without evidence of focal seizure activity UTI: Culture growing gram negative rods, identification and sensitivity pending. Has been receiving 1000mg Ceftriaxone IV since admission. Is symptomatic with dysuria and turbid urine, borderline febrile. * Continue Ceftriaxone Code Status: Full Code Diet: Regular DVT prophylaxis: pharmacological CI d/t impending surgical intervention; ALPs only
--- NOTE | 2016-12-25 15:56 | ELECTROENCEPHALOGRAM REPORT ---
Electroencephalogram Report Electroencephalogram Results Date of service: 12/25/16 Attending MD: ANNIKA SOSA,MANPREET Minaya Obiee Architect: Ana OROSCO EEG Number: [id number] Test Utilizes: 10-20 system, 21 lead 18 channel digital recording Pertinent Hx/Physical/Neuro Findings/Clin Diagnosis: SEIZURE SUSPECT Inpatient Medications: Current Medications Sig/Ghulam Start time Last Medication Dose Route Stop Time Status Admin Ceftriaxone Sodium 1,000 MG 2200 12/25 2200 AC IV Ceftriaxone Sodium 1,000 MG DAILY 12/25 1000 DC IV Ceftriaxone Sodium 0 .STK-MED ONE 12/25 2155 DC .ROUTE Ceftriaxone Sodium 1,000 MG ONCE ONE 12/24 2129 DC 12/24 IV 12/24 Furosemide 40 MG ONCE ONE 12/25 0030 DC 12/25 IV 12/25 0031 0100 Multivitamins 1 TAB DAILY 12/25 1000 AC Therapeutic PO Phenytoin 200 MG BID 12/25 0011 AC 12/25 PO 1036 Interpretation: EEG IN [place] BACKGROUND IS 9-10 CPS ACTIVITY POSTERIORLY LOW VOLTAGE 20-22 CPS ACTIVITY FRONTALLY PHOTIC STIM: NO ABNORMALITIES NO FOCAL OR EPILEPTIFORM ACTIVITY Impression: NORMAL EEG IN [place]
[2016-12-25 16:47] VITALS: BP 110/62
--- NOTE | 2016-12-25 20:17 | ECHOCARDIOGRAM REPORT ---
JUANY GONZALEZ Age: 61 : 1955 Gender: M Exam Date: 12/25/2016 12:00 Exam Location: 1 [address] Ht (in): 72 Wt (lb): 199 BSA: 2.15 BP: 122 / 70 Ordering Physician: CHRISTINE FERREIRA MD Referring Physician: CHRISTINE FERREIRA MD Technologist: Carlin Ramsey [facility] Room Number: 176-1 Indications: SVT Rhythm: Sinus Technical Quality: Fair FINDINGS Left Ventricle Left ventricular cavity size at the upper limits of normal. No obvious regional wall motion abnormalities. Normal left ventricular ejection fraction estimated at 55-60%. Right Ventricle Right ventricle at upper limits of normal. Right Atrium Normal right atrial size. Left Atrium Mild left atrial dilatation. Mitral Valve Mitral valve thickened. Trace mitral regurgitation. Aortic Valve Trileaflet aortic valve. Diffuse thickening (sclerosis) of the aortic valve cusps without reduced excursion. No aortic stenosis. No aortic regurgitation. Tricuspid Valve Tricuspid valve not well visualized, grossly normal. Mild tricuspid regurgitation. Pulmonic Valve Pulmonic valve not well visualized, grossly normal. Pericardium Normal pericardium. No pericardial effusion. Great Vessels Aortic root and proximal ascending aorta not well visualized, grossly normal. CONCLUSIONS 1. This was a technically difficult examination. 2. MIld aortic sclerosis is present with no valvular stenosis or insufficiency. 3. Mitral leaflet thickening is present with minimal mitral insufficiency and mild left atrial enlargement. 4. There is no pericardial fluid detected. 5. The left ventricular chamber size and systolic function are normal with disproportionated thickening of the interventricular septum and no resting wall motion abnormalities. 6. The right heart chambers are upper normal in size with mild tricuspid insufficiency and no evidence of pulmonary hypertension. 7. Lipomatous hypertrophy of the interatrial septum is present. Javed David M.D. (Electronically Signed) Final Date: 25 December 2016 20:16 MEASUREMENTS (Male / Female) Normal Values 2D ECHO LV Diastolic Diameter PLAX 6.0 cm 4.2 - 5.9 / 3.9 - 5.3 cm LV Systolic Diameter PLAX 3.3 cm 2.1 - 4.0 cm LV Fractional Shortening PLAX 45.0 % 25 - 46 % LV Ejection Fraction 2D Teich 75.5 % IVS Diastolic Thickness 0.9 cm LVPW Diastolic Thickness 0.9 cm LV Relative Wall Thickness 0.3 RV Internal Dim ED PLAX 4.1 cm 1.9 - 3.8 cm LVOT Diameter 2.5 cm Aortic Root Diameter 3.4 cm LA Systolic Diameter LX 3.7 cm 3.0 - 4.0 / 2.7 - 3.8 cm Ascending Aorta Diameter 3.2 cm DOPPLER AV Peak Velocity 131.0 cm/s AV Peak Gradient 6.9 mmHg AV Mean Velocity 79.8 cm/s AV Mean Gradient 3.0 mmHg AV Velocity Time Integral 23.2 cm LVOT Peak Velocity 81.2 cm/s LVOT Peak Gradient 2.6 mmHg LVOT Mean Velocity 43.1 cm/s LVOT Mean Gradient 1.0 mmHg LVOT Velocity Time Integral 15.5 cm LVOT Stroke Volume 76.1 cm AV Area Cont Eq vti 3.3 cm AV Area Cont Eq pk 3.0 cm MV Peak Velocity 95.1 cm/s MV Peak Gradient 3.6 mmHg MV Mean Velocity 50.8 cm/s MV Mean Gradient 1.0 mmHg Mitral E Point Velocity 59.2 cm/s Mitral A Point Velocity 81.4 cm/s Mitral E to A Ratio 0.7 MV PHT Velocity 76.0 cm/s MV Deceleration Logan 442.0 cm/s MV Pressure Half Time 51.6 ms MV Area PHT 4.3 cm MV Deceleration Time 239.0 ms TR Peak Velocity 276.0 cm/s TR Peak Gradient 30.5 mmHg Right Atrial Pressure 5.0 mmHg Pulmonary Artery Systolic Pressu 35.5 mmHg Right Ventricular Systolic Press 35.5 mmHg PV Peak Velocity 62.0 cm/s PV Peak Gradient 1.5 mmHg PV Mean Velocity 40.8 cm/s PV Mean Gradient 1.0 mmHg PV Velocity Time Integral 7.8 cm LV E' Lateral Velocity 11.3 cm/s Mitral E to LV E' Lateral Ratio 5.2 LV E' Septal Velocity 10.5 cm/s Mitral E to LV E' Septal Ratio 5.6
--- NOTE | 2016-12-25 20:46 | ULTRASOUND REPORT ---
EXAMINATION: RENAL ULTRASOUND CLINICAL INFORMATION: Urinary retention. Large pelvic mass. COMPARISON: 12/24/2016. TECHNIQUE: Real-time imaging of the kidneys and bladder. FINDINGS: RIGHT KIDNEY: There is neither hydronephrosis nor nephrolithiasis. The right kidney measures 10.2 cm. LEFT KIDNEY: There is neither hydronephrosis nor nephrolithiasis. The left kidney measures 8.2 cm. BLADDER: There is a large heterogeneous pelvic mass identified measuring approximately 15.2 cm in greatest dimension with vascular flow identified. The urinary bladder is not identified. IMPRESSION: Neither hydronephrosis nor nephrolithiasis. Heterogeneous pelvic mass with vascular flow demonstrable. The urinary bladder is not demonstrable.
[2016-12-25 21:07] LABS: ABSOLUTE BASOPHIL COUNT 0.1 /CUMM (0.0-0.2); ABSOLUTE EOSINOPHIL COUNT 0 /CUMM (0.0-0.7); ABSOLUTE GRANULOCYTE CT 9.1 /CUMM (1.4-6.5); ABSOLUTE LYMPH COUNT 0.9 /CUMM (1.2-3.4); ABSOLUTE MONOCYTE COUNT 1.1 /CUMM (0.10-0.60); BASOPHIL % 0.8 % (0.0-2.0); EOSINOPHIL % 0 % (0-5); GRANULOCYTE % 81.4 % (42.2-75.2); MEAN CORPUSCULAR HGB 26.6 PG (27.0-31.0); MEAN CORPUSCULAR HGB CONC 32.1 G/DL (33.0-37.0); MEAN CORPUSCULAR VOLUME 82.8 FL (80.0-94.0); MEAN PLATELET VOLUME 6.9 FL (7.4-10.4); PLATELET COUNT 436 /CUMM (130-400); RBC DISTRIBUTION WIDTH 17.6 % (11.5-14.5); RED BLOOD CELL CT 3.14 /CUMM (4.70-6.10); WHITE BLOOD CELL COUNT 11.2 /CUMM (4.8-10.8)
[2016-12-26 00:50] VITALS: BP 120/80
[2016-12-26 08:00] VITALS: BP 120/76
[2016-12-26 08:11] LABS: ABSOLUTE BASOPHIL COUNT 0 /CUMM (0.0-0.2); ABSOLUTE EOSINOPHIL COUNT 0 /CUMM (0.0-0.7); ABSOLUTE GRANULOCYTE CT 6.7 /CUMM (1.4-6.5); ABSOLUTE MONOCYTE COUNT 1.1 /CUMM (0.10-0.60); BASOPHIL % 0.1 % (0.0-2.0); EOSINOPHIL % 0.1 % (0-5); GRANULOCYTE % 76.6 % (42.2-75.2); HEMATOCRIT 25.4 % (42-52); MEAN CORPUSCULAR HGB 26.9 PG (27.0-31.0); MEAN CORPUSCULAR HGB CONC 32.7 G/DL (33.0-37.0); MEAN CORPUSCULAR VOLUME 82.3 FL (80.0-94.0); MEAN PLATELET VOLUME 6.9 FL (7.4-10.4); PLATELET COUNT 440 /CUMM (130-400); RBC DISTRIBUTION WIDTH 17.5 % (11.5-14.5); RED BLOOD CELL CT 3.09 /CUMM (4.70-6.10); WHITE BLOOD CELL COUNT 8.8 /CUMM (4.8-10.8)
[2016-12-26 08:24] LABS: PT 18.2 SEC (9.4-12.5)
--- NOTE | 2016-12-26 09:19 | PN- Housestaff ---
AMY SOSA,BESSIE 12/26/16 0915: Subjective Follow-up For: Pelvic mass Acute blood loss anemia Seizure Hx of PE UTI Complaints: lower abdominal pain Tele-Events Since Last Visit: SR, tachycardia 90-110s, PVC 3/5 beats around 8am Subjective: Pt was seen and examined at bedside. He c/o mild lower abdominal pain but denies nausea/vomiting. Had 6 BM yesterday, but small/hard stool. He denies diarrhea. He would like to be off price catheter. His urine bag looks pinkish. He denies any chest pain, shortness of breath, cough/sputum. His bilateral LE edema got little better. Review of Systems Constitutional: Denies: chills, fever, weakness. EENTM: Reports: no symptoms. Cardiovascular: Reports: peripheral edema. Denies: chest pain, palpitations. Respiratory: Reports: hemoptysis, short of breath, sputum production. Gastrointestinal: Reports: abdominal pain. Denies: nausea, vomiting. Genitourinary: Reports: hematuria. Denies: dysuria, pain. Musculoskeletal: Reports: no symptoms. Skin: Reports: no symptoms. Neurological/Psychological: Reports: no symptoms. Hematologic/Endocrine: Reports: no symptoms. Objective Last 24 Hrs of Vital Signs/I&O Vital Signs Date Time Temp Pulse Resp B/P B/P Pulse O2 O2 Flow FiO2 Mean Ox Delivery Rate 12/26 0050 98.2 112 18 120/80 98 Room Air 12/25 1647 99.3 101 16 110/62 96 Intake & Output 12/26 1600 12/26 0800 12/26 0000 Intake Total 750 Output Total 250 300 Balance -250 450 Intake, Blood 350 Product Intake, Oral 400 Number 6 Bowel Movements Output, Urine 250 300 Patient 184 lb Weight Weight Standing Scale Measurement Method Physical Exam General Appearance: Alert, Oriented X3, Cooperative, No Acute Distress Skin: bilateral LE edema HEENT: Atraumatic, PERRLA, EOMI Neck: Supple, No JVD, No LAD Lymphatic: Cervical nl Cardiovascular: Normal S1, Normal S2, No Murmurs, tachycardic Lungs: Clear to Auscultation, Normal Air Movement Abdomen: Normal Bowel Sounds, Soft, mild lower abdomen tenderness Neurological: Normal Speech, Strength at 5/5 X4 Ext, Normal Tone, Sensation Intact, Cranial Nerves 3-12 NL Extremities: bilateral 2+ pitting edema Vascular: Normal Pulses, Pulses Symmetrical Current Medications: Current Medications Sig/Ghulam Start time Last Medication Dose Route Stop Time Status Admin Calcium Carbonate 500 MG ONCE ONE 12/25 1715 DC PO 12/26 1715 Ceftriaxone Sodium 1,000 MG 0 12/25 2199 AC 12/25 IV 2114 Ceftriaxone Sodium 1,000 MG DAILY 12/25 1000 DC IV Multivitamins 1 TAB DAILY 12/25 1000 AC Therapeutic PO Phenytoin 200 MG BID 12/25 001 AC 12/25 PO 2114 Last 24 Hrs of Lab/Yuri Results Last 24 Hrs of Labs/Mics: Laboratory Tests 12/26/16 0650: Anion Gap 10, Estimated GFR > 60, BUN/Creatinine Ratio 20.0, PT 18.2 H, INR 1.74 H, CBC w Diff NO MAN DIFF REQ, RBC 3.09 L, MCV 82.3, MCH 26.9 L, RDW 17.5 H, MPV 6.9 L, Gran % 76.6 H, Lymphocytes % 10.9 L, Monocytes % 12.3 H, Eosinophils % 0.1, Basophils % 0.1, Absolute Granulocytes 6.7 H, Absolute Lymphocytes 1.0 L, Absolute Monocytes 1.1 H, Absolute Eosinophils 0, Absolute Basophils 0, PUBS MCHC 32.7 L 12/25/162009: CBC w Diff NO MAN DIFF REQ, RBC 3.14 L, MCV 82.8, MCH 26.6 L, RDW 17.6 H, MPV 6.9 L, Gran % 81.4 H, Lymphocytes % 7.9 L, Monocytes % 9.9 H, Eosinophils % 0, Basophils % 0.8, Absolute Granulocytes 9.1 H, Absolute Lymphocytes 0.9 L, Absolute Monocytes 1.1 H, Absolute Eosinophils 0, Absolute Basophils 0.1, PUBS MCHC 32.1 L 12/25/16 1000: Vitamin B12 Cancelled Lines/Diet/Fluids Lines: peripheral lines Assessment/Plan Assessment: 61 y/o M with PMHx of seizure disorder on Dilantin, PE in 2013 on Coumadin and BPH who is admitted with symptomatic anemia, bilateral lower extremity edema and large pelvic mass extending into the abdomen. 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 Imaging suggestive of gas within the mass and air within the bladder which could represent fistulization or invasion into the bladder. * Oncology, GI, general surgery, urology consulted. Appreciate their recs. * CT with IV and oral contrast with concurrent CT cystogram tentatively scheduled on Wednesday (12/27/16) to delineate extent of tumor infiltration. * Plans for further evaluation including possible colonoscopy and surgery pending CT scan. * CEA pending. * Keep pt on clear liquid diet for possible EGD/colonoscopy early next week #ABLA: H/H has further dropped to 7.1. * Transfuse 1 unit of pRBCs and repeat CBC post-transfusion. * Monitor H/H and transfuse as needed to keep Hgb >7. #History of PE: Diagnosed in 2013 and treated with warfarin. INR 2.13 -> 1.74. * Continue to hold warfarin. * Start IV heparin once INR <2 in anticipation for possible surgery or biopsy -> will start IV heaprin today. #Possible seizures: Per neurology transient neurological events could potentially represent complex partial seizures. EEG normal. * Neurology following. Appreciate their recs. * Continue prior to admission phenytoin 200 mg PO BID. #UTI: In the presence of UCx growing >100,000 colonies/ml of GNR and dysuria. * UCx grows providencia, Continue ceftriaxone 1 g IV daily. * Will D/C price Diet: Clear liquid diet pending EGD/colonoscopy early next week. DVT PPx: ALPs, IV heparin CODE: FULL Problem List: 1. Acute blood loss anemia 2. Pelvic mass in male 3. UTI (urinary tract infection) 4. History of pulmonary embolism Pain Ratin Pain Location: NA Pain Goal: Pain 4 or less Pain Plan: tyrenol prn Tomorrow's Labs & Rationales: CBC: anemia, IV heparin PT/PTT: IV heparin DVT/Prophylaxis: pharmacological Discharge Plan Stable for Discharge? No BRANDON SOSA,JACK 12/26/16 1503: Attending MD Review Statement Attending Statement Attending MD Statement: examined this patient, discuss w/resident/PA/INDUSTRIAL MACHINE SYSTEM TECHNICIAN, agreed w/resident/PA/INDUSTRIAL MACHINE SYSTEM TECHNICIAN, discussed with family, reviewed EMR data (avail), discussed with nursing, reviewed images, amended to note Attending Assessment/Plan: 61-year-old male with past medical history significant for seizure disorder on Dilantin, PE in 2013 and is on Coumadin is being admitted on the floor with symptomatic anemia, bilateral lower extremity edema and large pelvic mass. Patient was seen and examined on the bedside and is questioning the insertion of Price's catheter. Vitals stable and unremarkable physical examination. He previously refused workup for his pelvic mass but is ready to be worked up on this admission. Currently he is waiting to undergo CT of the abdomen and pelvis with oral and IV contrast as recommended by the surgical team. Neurology is on board and for now recommended to continue with Dilantin, EEG negative. Patient has been switched over to IV heparin in anticipation for any surgical procedure. Patient is to be followed by new oncologist as the patient refused to see his previous oncologist Dr. Cook. We will take out his Price's catheter and will see if the patient can spontaneously void or else would reinsert the Price's catheter.
[2016-12-26 17:49] VITALS: BP 118/66
[2016-12-26 18:29] LABS: PTT 29 SEC (25-37)
[2016-12-26 23:00] VITALS: BP 114/70
[2016-12-27 01:39] LABS: PTT 36 SEC (25-37)
--- NOTE | 2016-12-27 08:04 | PN- Housestaff ---
GRAYSON SOSA,IMGE 12/27/16 0803: Subjective Follow-up For: Pelvic mass ABLA UTI Tele-Events Since Last Visit: Sinus tachycardia HR 97-138 PVCs, 3-beat-run of V-tach at 8:42 AM Subjective: No acute events overnight. Patient seen and examined this morning. He feels well and has no complaints. He has been having hematuria. Review of Systems Constitutional: Reports: see HPI. Objective Last 24 Hrs of Vital Signs/I&O Vital Signs Date Time Temp Pulse Resp B/P B/P Pulse O2 O2 Flow FiO2 Mean Ox Delivery Rate 12/275 98.9 106 20 112/80 96 Room Air 12/27 1719 98.6 100 18 126/72 97 12/27 0853 97.5 107 20 112/70 95 Room Air Intake & Output 12/28 0800 12/28 0000 12/27 1600 Intake Total 720 Output Total 600 Balance 120 Intake, Oral 720 Number 1 Bowel Movements Output, Urine 600 Physical Exam General Appearance: Alert, Oriented X3, No Acute Distress HEENT: Atraumatic, Mucous Membr. moist/pink Neck: Supple Cardiovascular: Regular Rate, Normal S1, Normal S2, No Murmurs, Gallops, Rubs Lungs: Diminished Breath Sounds Abdomen: Soft, Tenderness to Palpation in Suprapubic Region, Palpable Mass Extending from Pelvis to Abdomen, Positive Bowel Sounds Extremities: No Clubbing, No Cyanosis, 2+ Pitting Edema on Bilateral Lower Extremities Current Medications: Current Medications Sig/Ghulam Start time Last Medication Dose Route Stop Time Status Admin Acetaminophen 325 MG Q6P PRN 12/26 1230 AC PO Ceftriaxone Sodium 1,000 MG 12/25 2200 AC 12/27 IV 2129 Heparin Sodium 6,200 UNIT ONCE ONE 12/27 1115 DC 12/27 (Porcine) IV 12/27 1116 1121 Heparin Sodium 6,200 UNIT ONE ONE 12/27 0230 DC 12/27 (Porcine) IV 12/27 0231 0300 Heparin Sodium 25,000 UNIT Q24H 12/26 0930 AC 12/27 (Porcine) IV 12/28 06 1910 Sodium Chloride 500 ML Multivitamins 1 TAB DAILY 12/25 1000 AC Therapeutic PO Phenytoin 200 MG BID 12/25 0011 AC 12/27 PO 2112 Polyethylene Glycol 1 GAL ONE TIME ONE 12/27 1930 DC 12/27 PO 12/27 1930 2103 Sodium Chloride 1,000 ML Q13H 12/27 1945 AC IV 12/284 Last 24 Hrs of Lab/Yuri Results Last 24 Hrs of Labs/Mics: Laboratory Tests 12/27/16 1630: APTT 39 H 12/27/16 0850: PT 13.0 H, INR 1.24 H, APTT 39 H, CBC w Diff NO MAN DIFF REQ, RBC 3.06 L, MCV 83.0, MCH 26.8 L, RDW 18.2 H, MPV 7.2 L, Gran % 78.9 H, Lymphocytes % 9.6 L, Monocytes % 10.3 H, Eosinophils % 0.2, Basophils % 1.0, Absolute Granulocytes 8.9 H, Absolute Lymphocytes 1.1 L, Absolute Monocytes 1.2 H, Absolute Eosinophils 0, Absolute Basophils 0.1, PUBS MCHC 32.3 L Stool C. difficile (12/26/16): Negative Orders Radiology Findings: CT ABDOMEN/PELVIS WITH ORAL AND IV CONTRAST: 1. A large pelvic mass is redemonstrated. This is circumscribed, of soft tissue density and shows central gas, suggesting communication with bowel. Differential possibilities include but are not limited to: Giant mucocele of the appendix, gastrointestinal stromal tumor and sarcoma. 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 Recommend General Surgery evaluation and management. 2. There are 3 subcentimeter low-attenuation foci within the right hepatic lobe, likely cysts or hemangiomas. These could be more fully evaluated with ultrasound or MRI, if clinically indicated. 3. There is a large hiatus hernia. 4. There is constipation without reinaldo obstruction, likely related to pelvic mass effect. 5. There is generalized anasarca. 6. There are small fat-containing umbilical and right inguinal hernias. 7. There is prostatomegaly. 8. There is a moderate L4 compression fracture redemonstrated. Assessment/Plan Assessment: 61 y/o M with PMHx of seizure disorder on Dilantin, PE in 2013 on Coumadin and BPH who is admitted with symptomatic anemia, bilateral lower extremity edema and large pelvic mass extending into the abdomen. #Pelvic mass suspicious for malignancy: CT with IV and oral contrast with concurrent CT cystogram, performed today, with large pelvic mass, differential including giant mucocele of the appendix, which is favored given pelvic MRI in 2015 which suggests the presence of this neoplasm, gastrointestinal stromal tumor and sarcoma. Per urology, there does not appear to be a fistula between the mass and the urinary tract. * Oncology, GI, general surgery, urology consulted. Appreciate their recs. * To the OR for surgical removal of the mass by general surgery tomorrow. * NPO at midnight for surgery in the AM. * Administer GoLYTELY. * Start NS @ 75 cc/hr to hydrate patient overnight. * Discontinue IV heparin drip at 6 AM prior to surgery. * No plans for urgent colonoscopy per GI. * CEA pending. #ABLA: H/H 8.2/25.4 today. * Transfuse 2 unit of pRBCs in anticipation for surgery tomorrow. * Type and screen ordered. #Possible seizures: Per neurology transient neurological events could potentially represent complex partial seizures. EEG normal. * Neurology following. Appreciate their recs. * Continue prior to admission phenytoin 200 mg PO BID. #UTI: UCx growing >100,000 colonies/ml of Providencia, sensitive to ceftriaxone. Hematuria likely secondary to UTI. * Continue ceftriaxone 1 g IV daily. Diet: Regular - NPO at midnight DVT PPx: IV heparin and ALPs CODE: FULL Problem List: 1. Abdominal mass 2. Symptomatic anemia 3. Acute blood loss anemia 4. Hematuria 5. Lower GI bleed 6. Pelvic mass in male 7. History of pulmonary embolism Pain Ratin Pain Location: N/A Pain Goal: Remain pain free Pain Plan: Tylenol 325 mg PO Q6H PRN Tomorrow's Labs & Rationales: CBC to monitor H/H in the setting of anemia BMP to monitor lytes and kidney function given recent administration of contrast BRANDON SOSA,[facility] 12/27/16 1542: Attending MD Review Statement Attending Statement Attending MD Statement: examined this patient, discuss w/resident/PA/DIRECTOR PRODUCT SAFETY, agreed w/resident/PA/DIRECTOR PRODUCT SAFETY, reviewed EMR data (avail), discussed with nursing, discussed with case mgmt, reviewed images Attending Assessment/Plan: 61-year-old male with past medical history significant for seizure disorder on Dilantin, PE in 2013 and is on Coumadin is being admitted on the floor with symptomatic anemia, bilateral lower extremity edema and large pelvic mass. Patient was seen and examined on the bedside and is questioning the insertion of Sanchez's catheter. Vitals stable and unremarkable physical examination. He previously refused workup for his pelvic mass but is ready to be worked up on this admission. Neurology is on board and for now recommended to continue with Dilantin, EEG negative. Patient has been switched over to IV heparin in anticipation for any surgical procedure. Patient is to be followed by new oncologist as the patient refused to see his previous oncologist Dr. Cook. Patient underwent CT scan of the abdomen and pelvis with IV contrast and IV cystogram but has not been read officially. GI saw the patient and had a brief discussion with the neuroradiologist who confirmed the presence of a mass with a possible fistula between the mass and the urinary bladder. Please let the surgical team aware of the results would plan for further surgery.
[2016-12-27 08:53] VITALS: BP 112/70
[2016-12-27 09:54] LABS: ABSOLUTE BASOPHIL COUNT 0.1 /CUMM (0.0-0.2); ABSOLUTE EOSINOPHIL COUNT 0 /CUMM (0.0-0.7); ABSOLUTE GRANULOCYTE CT 8.9 /CUMM (1.4-6.5); ABSOLUTE LYMPH COUNT 1.1 /CUMM (1.2-3.4); ABSOLUTE MONOCYTE COUNT 1.2 /CUMM (0.10-0.60); EOSINOPHIL % 0.2 % (0-5); GRANULOCYTE % 78.9 % (42.2-75.2); HEMATOCRIT 25.4 % (42-52); MEAN CORPUSCULAR HGB 26.8 PG (27.0-31.0); MEAN CORPUSCULAR HGB CONC 32.3 G/DL (33.0-37.0); MEAN PLATELET VOLUME 7.2 FL (7.4-10.4); PLATELET COUNT 438 /CUMM (130-400); RBC DISTRIBUTION WIDTH 18.2 % (11.5-14.5); RED BLOOD CELL CT 3.06 /CUMM (4.70-6.10); WHITE BLOOD CELL COUNT 11.3 /CUMM (4.8-10.8)
[2016-12-27 10:03] LABS: PTT 39 SEC (25-37)
--- NOTE | 2016-12-27 10:21 | PN- Student ---
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 No acute events overnight. This morning the patient states he feels fine. He admits to some anxiety over impending diagnostics and interventions. He also admits to occasional nausea, abdominal bloating and fullness, and occasional mild abdominal pain. He states he has had several bowel movements over the past few days. He denies headache, vision chagnes, seizure activity, syncope, palpitations, chest pain, dyspnea, and diarrhea. Current Medications Sig/Ghulam Start time Last Medication Dose Route Stop Time Status Admin Acetaminophen 325 MG Q6P PRN 12/26 1230 AC PO Ceftriaxone Sodium 1,000 MG 2200 12/25 2200 AC 12/26 IV 2113 Heparin Sodium 6,200 UNIT ONE ONE 12/27 0230 DC 12/27 (Porcine) IV 12/27 0231 0300 Heparin Sodium 6,200 UNIT ONE ONE 12/26 1845 DC 12/26 (Porcine) IV 12/26 1846 1909 Heparin Sodium 25,000 UNIT Q24H 12/26 0930 AC 12/27 (Porcine) IV 0633 Sodium Chloride 500 ML Multivitamins 1 TAB DAILY 12/25 1000 AC Therapeutic PO Phenytoin 200 MG BID 12/25 0011 AC 12/27 PO 1014 Objective Objective: Vital Signs Date Time Temp Pulse Resp B/P B/P Pulse O2 O2 Flow FiO2 Mean Ox Delivery Rate 12/27 0853 97.5 107 20 112/70 95 Room Air 12/26 2300 99.4 112 18 114/70 96 Room Air 12/26 1749 99.6 124 18 118/66 98 Room Air Intake & Output 12/27 1600 12/27 0800 12/27 0000 Intake Total 436 608 Output Total Balance 436 608 Intake, IV 316 208 Intake, Oral 120 400 Number 2 3 Bowel Movements Patient 189 lb Weight Weight Standing Scale Measurement Method Telemetry Overnight: NSR to sinus tachycardia, rate 97 - 138 bpm, some PVCs. 3 beat run at ~0842 this am. General: A&Ox3, anxious HEENT: atraumatic, moist oral mucosa CV: tachycardic, no murmurs Pulmonary: CTA with normal air movement GI: abdomen distended, soft. Bowel sounds present. Tender to light palpation in suprapubic region with palpable mass : price catheter in place with slightly cloudy urine Extremities: BLE 2+ pitting edema to knees Results Results: Laboratory Tests 12/27/16 0850: PT 13.0 H, INR 1.24 H, APTT 39 H, CBC w Diff NO MAN DIFF REQ, RBC 3.06 L, MCV 83.0, MCH 26.8 L, RDW 18.2 H, MPV 7.2 L, Gran % 78.9 H, Lymphocytes % 9.6 L, Monocytes % 10.3 H, Eosinophils % 0.2, Basophils % 1.0, Absolute Granulocytes 8.9 H, Absolute Lymphocytes 1.1 L, Absolute Monocytes 1.2 H, Absolute Eosinophils 0, Absolute Basophils 0.1, PUBS MCHC 32.3 L 12/27/16 0050: APTT 36 Microbiology 12/24 1837 URINE ROUT: Urine Culture - COMP PROVIDENCIA Assessment/Plan Assessment: Dale Carrion is a 61yo M with 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 Plan: Abdominal Mass, Suspected Malignancy: possibly mucinous neoplasm with either fistula or invasion of urinary bladder. Will have CT with IV and oral contrast and concurrent CT cystogram today. Further diagnostics and interventional planning pending CT results. * GI, Surgery, Heme/Onc, & Urology consults and recommendations * CT today to evaluate extent of tumor * CEA: 19.4 * Clear liquids for potential interventions this week * Urine cytology pending Normocytic Anemia: Received 1u pRBCs on 12/24, with resultant increase in H&H. * Monitor H&H * Transfuse as necessary to keep Hgb >7 * Continue telemetry PE: has prior history of PE. warfarin being held d/t impending diagnostics and interventions. * Continue holding warfarin * IV heparin for anticoagulation * continue telemetry monitoring * monitor for s/s of bleeding UTI: urine cultures growing Providencia, sensitive to ceftriaxone. Patient already on Ceftriaxone. * Continue ceftriaxone 1000mg IV Code Status: Full Diet: Clear liquid DVT prophylaxis: IV heparin, ALPs
--- NOTE | 2016-12-27 14:12 | PN- Gastroenterology ---
Assessment/Plan Assessment/Recommendations: 61 y/o M with PMHx of seizure disorder on Dilantin, PE in 2014 on Coumadin and BPH who is admitted with symptomatic anemia, bilateral lower extremity edema and large pelvic mass extending into the abdomen.. She feels relatively well this morning. He hasn't IV and a Sanchez catheter. Abdominal discomfort. Patient has been nothing by mouth for over 24 hours. Abdomen is soft nontender flat no bowel sounds. S1-S2 no murmurs. JVD not elevated. Patient had a CT scan this morning. Which has not been read. Discussion with radiologist validation intern who is a neuroradiologist confirms the presence of the mass with a possible fistula between the mass and the urinary bladder. Await final read later tonight. Case discussed with surgical team. At present the plan is for the patient to have a surgical removal of the mass. We will continue to follow with you. No plans for urgent colonoscopy if patient will be going to the OR. Subjective Subjective: dd Objective Vital Signs and I&Os Vital Signs Date Time Temp Pulse Resp B/P B/P Pulse O2 O2 Flow FiO2 Mean Ox Delivery Rate 12/27 0853 97.5 107 20 112/70 95 Room Air 12/26 2300 99.4 112 18 114/70 96 Room Air 12/26 1749 99.6 124 18 118/66 98 Room Air Intake & Output 12/27 1600 12/27 0400 12/26 1600 12/26 0400 12/25 1600 12/25 0400 Intake Total 436 608 824 750 680 Output Total 368 380 0921 200 Balance 436 608 324 450 -370 -200 Intake, Blood 350 Product Intake, IV 316 208 104 0 Intake, Oral 120 400 720 400 680 Number 2 3 6 0 Bowel Movements Output, Urine 943 532 8200 200 Patient 189 lb 182 lb 182 lb 200 lb Weight Weight Standing Scale Standing Scale Chair scale Reported by Patient Measurement Method Results Pertinent Lab Results: Laboratory Tests 12/27 12/27 12/26 0850 0050 1730 Coagulation PT (9.4 - 12.5 SEC) 13.0 H INR (0.90 - 1.17) 1.24 H APTT (25 - 37 SEC) 39 H 36 29 Hematology CBC w Diff NO MAN DIFF REQ WBC (4.8 - 10.8 /CUMM) 11.3 H RBC (4.70 - 6.10 /CUMM) 3.06 L Hgb (14.0 - 18.0 G/DL) 8.2 L Hct (42 - 52 %) 25.4 L MCV (80.0 - 94.0 FL) 83.0 MCH (27.0 - 31.0 PG) 26.8 L RDW (11.5 - 14.5 %) 18.2 H Plt Count (130 - 400 /CUMM) 438 H MPV (7.4 - 10.4 FL) 7.2 L Gran % (42.2 - 75.2 %) 78.9 H Lymphocytes % (20.5 - 51.1 %) 9.6 L Monocytes % (1.7 - 9.3 %) 10.3 H Eosinophils % (0 - 5 %) 0.2 Basophils % (0.0 - 2.0 %) 1.0 Absolute Granulocytes (1.4 - 6.5 /CUMM) 8.9 H Absolute Lymphocytes (1.2 - 3.4 /CUMM) 1.1 L Absolute Monocytes (0.10 - 0.60 /CUMM) 1.2 H Absolute Eosinophils (0.0 - 0.7 /CUMM) 0 Absolute Basophils (0.0 - 0.2 /CUMM) 0.1 PUBS MCHC (33.0 - 37.0 G/DL) 32.3 L 12/26 12/25 0650 2010 Chemistry Sodium (137 - 145 mmol/L) 132 L Potassium (3.5 - 5.1 mmol/L) 3.7 Chloride (98 - 107 mmol/L) 98 Carbon Dioxide (22 - 30 mmol/L) 24 Anion Gap (5 - 16) 10 BUN (9 - 20 mg/dL) 20 Creatinine (0.7 - 1.2 mg/dL) 1.0 Estimated GFR (>60 ml/min) > 60 BUN/Creatinine Ratio (7 - 25 %) 20.0 Coagulation PT (9.4 - 12.5 SEC) 18.2 H INR (0.90 - 1.17) 1.74 H Hematology CBC w Diff NO MAN DIFF REQ NO MAN DIFF REQ WBC (4.8 - 10.8 /CUMM) 8.8 11.2 H RBC (4.70 - 6.10 /CUMM) 3.09 L 3.14 L Hgb (14.0 - 18.0 G/DL) 8.3 L 8.3 L Hct (42 - 52 %) 25.4 L 26.0 L MCV (80.0 - 94.0 FL) 82.3 82.8 MCH (27.0 - 31.0 PG) 26.9 L 26.6 L RDW (11.5 - 14.5 %) 17.5 H 17.6 H Plt Count (130 - 400 /CUMM) 440 H 436 H MPV (7.4 - 10.4 FL) 6.9 L 6.9 L Gran % (42.2 - 75.2 %) 76.6 H 81.4 H Lymphocytes % (20.5 - 51.1 %) 10.9 L 7.9 L Monocytes % (1.7 - 9.3 %) 12.3 H 9.9 H Eosinophils % (0 - 5 %) 0.1 0 Basophils % (0.0 - 2.0 %) 0.1 0.8 Absolute Granulocytes (1.4 - 6.5 /CUMM) 6.7 H 9.1 H Absolute Lymphocytes (1.2 - 3.4 /CUMM) 1.0 L 0.9 L Absolute Monocytes (0.10 - 0.60 /CUMM) 1.1 H 1.1 H Absolute Eosinophils (0.0 - 0.7 /CUMM) 0 0 Absolute Basophils (0.0 - 0.2 /CUMM) 0 0.1 PUBS MCHC (33.0 - 37.0 G/DL) 32.7 L 32.1 L 12/25 12/25 12/25 UNK 0639 0610 Chemistry Sodium (137 - 145 mmol/L) 133 L Potassium (3.5 - 5.1 mmol/L) 3.9 Chloride (98 - 107 mmol/L) 99 Carbon Dioxide (22 - 30 mmol/L) 27 Anion Gap (5 - 16) 8 BUN (9 - 20 mg/dL) 21 H Creatinine (0.7 - 1.2 mg/dL) 0.9 Estimated GFR (>60 ml/min) > 60 BUN/Creatinine Ratio (7 - 25 %) 23.3 Iron (49 - 181 ug/dL) Cancelled 26 L TIBC (261 - 462 ug/dL) Cancelled 226 L Ferritin (17.9 - 464 ng/mL) Cancelled 17.4 L Troponin I (<0.11 ng/ml) < 0.01 Vitamin B12 (239 - 931 pg/mL) Cancelled 765 Folate (2.76 - 20.0 ng/mL) Cancelled 17.5 Coagulation PT (9.4 - 12.5 SEC) 22.2 H INR (0.90 - 1.17) 2.13 H Hematology CBC w Diff NO MAN DIFF REQ WBC (4.8 - 10.8 /CUMM) 9.0 RBC (4.70 - 6.10 /CUMM) 2.71 L Hgb (14.0 - 18.0 G/DL) 7.1 *L Hct (42 - 52 %) 22.0 L MCV (80.0 - 94.0 FL) 81.3 MCH (27.0 - 31.0 PG) 26.2 L RDW (11.5 - 14.5 %) 17.7 H Plt Count (130 - 400 /CUMM) 431 H MPV (7.4 - 10.4 FL) 7.2 L Gran % (42.2 - 75.2 %) 75.9 H Lymphocytes % (20.5 - 51.1 %) 11.0 L Monocytes % (1.7 - 9.3 %) 12.5 H Eosinophils % (0 - 5 %) 0.1 Basophils % (0.0 - 2.0 %) 0.5 Absolute Granulocytes (1.4 - 6.5 /CUMM) 6.8 H Absolute Lymphocytes (1.2 - 3.4 /CUMM) 1.0 L Absolute Monocytes (0.10 - 0.60 /CUMM) 1.1 H Absolute Eosinophils (0.0 - 0.7 /CUMM) 0 Absolute Basophils (0.0 - 0.2 /CUMM) 0 PUBS MCHC (33.0 - 37.0 G/DL) 32.3 L 12/25 12/24 12/24 0600 1835 1734 Chemistry Troponin I (<0.11 ng/ml) < 0.01 Albumin (3.5 - 5.0 g/dL) 2.7 L Carcinoembryonic Ag (() ng/mL) 19.4 H Total PSA (0.00 - 4.00 ng/mL) 5.75 H TSH (0.270 - 4.200 uIU/mL) 2.680 Coagulation PT (9.4 - 12.5 SEC) 20.3 H INR (0.90 - 1.17) 1.95 H APTT (25 - 37 SEC) 29 Toxicology Phenytoin (10.0 - 20.0 ug/mL) 9.3 L Urines Urinalysis LIGHT H Urine Color (YEL,AMB,STR) YEL Urine Clarity (CLEAR) TURBD H Urine pH (5.0 - 8.0) 7.5 Ur Specific Wallace (1.001 - 1.035) 1.020 Urine Protein (NEG,<30 MG/DL) 100 H Urine Ketones (NEG) NEG Urine Nitrite (NEG) POS H Urine Bilirubin (NEG) NEG Urine Urobilinogen (0.1 - 1.0 EU/dl) 0.2 Ur Leukocyte Esterase (NEG) LARGE H Ur Microscopic SEDIMENT EXAMINED Urine RBC (0 - 5 /HPF) 25-50 H Urine WBC (0 - 2 /HPF) PACKD H Ur Epithelial Cells (NONE,FEW) FEW Urine Bacteria (NEG/NONE) PACKD H Urine Mucus (FEW,NONE) MANY H Urine Hemoglobin (NEG) LARGE H Urine Glucose (N MG/DL) NEG
--- NOTE | 2016-12-27 16:33 | CT SCAN REPORT ---
EXAMINATION: CT ABDOMEN AND PELVIS WITH CONTRAST CLINICAL INFORMATION: Abdominal mass; question of intestinal or bladder fistula. COMPARISON: CT examinations of the abdomen and pelvis dated 12/24/2016 and 10/11/2014; MRI pelvis dated . TECHNIQUE: Multidetector volumetric imaging was performed of the abdomen and pelvis before and after the IV administration of 95 mL of Optiray 320 intravenous contrast. Sagittal and coronal reformatted images were obtained on the technologist's workstation. DLP: 1158.17 mGy-cm FINDINGS: LUNG BASES: The visualized lung bases are unremarkable. LIVER, GALLBLADDER, AND BILIARY TREE: The liver is normal in size, shape, and attenuation. There are approximately 3 subcentimeter low-attenuation foci within the right hepatic lobe, statistically likely cysts or small hemangiomas. 2 of these are stable from 10/11/2014, and a further towards the diaphragmatic dome (4:18) is newly seen. No biliary ductal dilatation is present. The gallbladder is unremarkable with no evidence of radiopaque gallstones, gallbladder wall thickening, or obvious pericholecystic inflammatory changes. PANCREAS: Unremarkable. SPLEEN: Unremarkable. ADRENAL GLANDS: There is a stable nodular thickening of the left adrenal gland, not significantly changed from 10/11/2014. The right adrenal gland is unremarkable. No new nodule is seen. KIDNEYS AND URETERS: The kidneys are normal in size, shape, and attenuation. No hydronephrosis, hydroureter, or calculi seen. No perinephric stranding. BLADDER: Decompressed by a Sanchez balloon and anteriorly displaced. GASTROINTESTINAL TRACT: There is a large hiatus hernia. Again seen occupying the majority of the pelvis is a 14.1 x 16.9 x 15.6 cm mass (4:74 and 607:74). This is of soft tissue density, measuring approximately 27.6 Hounsfield units. There are small central and peripheral gas collections, suggesting communication with bowel. Small central calcifications are noted. The mass abuts the terminal ileum and sigmoid colon, in particular. There is moderate constipation. The appendix is poorly visualized. ABDOMINAL WALL: There is generalized anasarca. There are small fat-containing umbilical and right inguinal hernias. LYMPH NODES: Normal. VASCULAR: Unremarkable. PELVIC VISCERA: There is prostatomegaly, with a transverse span of 6.0 cm. The seminal vesicles are unremarkable. OSSEOUS STRUCTURES: There is a moderate L4 compression fracture. There is multi-level mild thoracolumbar spondylosis. No acute or aggressive osseous abnormality is seen. IMPRESSION: 1. A large pelvic mass is redemonstrated. This is circumscribed, of soft tissue density and shows central gas, suggesting communication with bowel. Differential possibilities include but are not limited to: Giant mucocele of the appendix, gastrointestinal stromal tumor and sarcoma. 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 Recommend General Surgery evaluation and management. 2. There are 3 subcentimeter low-attenuation foci within the right hepatic lobe, likely cysts or hemangiomas. These could be more fully evaluated with ultrasound or MRI, if clinically indicated. 3. There is a large hiatus hernia. 4. There is constipation without reinaldo obstruction, likely related to pelvic mass effect. 5. There is generalized anasarca. 6. There are small fat-containing umbilical and right inguinal hernias. 7. There is prostatomegaly. 8. There is a moderate L4 compression fracture redemonstrated.
[2016-12-27 17:19] VITALS: BP 126/72
--- NOTE | 2016-12-27 17:46 | Cons- Urology ---
General Information and HPI Consulting Request Date of Consult: 12/27/16 Requested By: Jie Guerra MD,MANPREET Minaya Reason for Consult: Large pelvic mass Source of Information: patient, old records Exam Limitations: no limitations History of Present Illness: This patient was admitted with lower extremity swelling and found to have a large palpable abdominal mass. W/U has included CT of the abd and pelvis and CT -cystogram. These studies confirm the presence of a large pelvic mass with some air in it. Base on my viewing there does not appear to be any communication with the urinary tract. He has a hx of a 2 cm pelvic mass related to the appendix or cecum in 2014. He did not follow up on that. He states that he had some hematuria. His urine culture is positive and he is now on ceftraxone. Allergies/Medications Allergies: Coded Allergies: NO KNOWN ALLERGIES (01/11/14) Home Med List: Multivitamin (Daily Multiple Vitamin) 1 EACH TABLET 1 TAB PO DAILY SUPPLEMENT (Reported) Phenytoin Sodium Extended 100 MG CAPSULE 2 CAP PO BID SEIZURES (Reported) Warfarin Sodium 7.5 MG TABLET 0.5-1 TAB PO AD BLOOD THINNER (Reported) Current Medications: Current Medications Sig/Ghulam Start time Last Medication Dose Route Stop Time Status Admin Acetaminophen 325 MG Q6P PRN 12/26 1230 AC PO Ceftriaxone Sodium 1,000 MG 2200 12/25 2200 AC 12/26 IV 2113 Heparin Sodium 6,200 UNIT ONCE ONE 12/27 1115 DC 12/27 (Porcine) IV 12/27 1116 1121 Heparin Sodium 6,200 UNIT ONE ONE 12/27 0230 DC 12/27 (Porcine) IV 12/27 0231 0300 Heparin Sodium 6,200 UNIT ONE ONE 12/26 1845 DC 12/26 (Porcine) IV 12/26 1846 1909 Heparin Sodium 25,000 UNIT Q24H 12/26 0930 AC 12/27 (Porcine) IV 0633 Sodium Chloride 500 ML Multivitamins 1 TAB DAILY 12/25 1000 AC Therapeutic PO Phenytoin 200 MG BID 12/25 0011 AC 12/27 PO 1014 Past History Medical History Blood Transfusion Hx: No Neurological: seizure, childhood encephalitis EENT: NONE Cardiovascular: syncope (possible unwitnessed) Respiratory: pulmonary embolism (06/2014) Gastrointestinal: GERD (mild), hiatal hernia Hepatic: NONE Renal: benign prost hyperplasia Musculoskeletal: osteopenia; TL compression fractures Psychiatric: NONE Endocrine: osteopenia Blood Disorders: anemia, PE (06/2014) Cancer(s): NONE 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 MOTHER, , Age 50-60; Cause: Cancer of unknown origin. BROTHER ([employer]). Relation not specified for: *No pertinent family history Psychosocial History Where Do You Live? Home Who Do You Live With? spouse (upstairs from his brother), alone Services at Home: None Primary Language: [place] Smoking Status: Light Tobacco Smoker ETOH Use: denies use Illicit Drug Use: denies illicit drug use Living Will? 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 no Other Social History: Single. No children. Light cigarette smoker. No EtOH or illicit drugs. Lives alone upstairs from his brother. Unemployed, on disability. Functional Ability ADLs Independent: dressing, eating, toileting, bathing. Ambulation: independent IADLs Independent: shopping, housework, finances, food prep, telephone, transportation , medication admin. Employment History Employment: Disability Exam & Diagnostic Data Vital Signs and I&O Vital Signs Date Time Temp Pulse Resp B/P B/P Pulse O2 O2 Flow FiO2 Mean Ox Delivery Rate 12/27 1719 98.6 100 18 126/72 97 12/27 0853 97.5 107 20 112/70 95 Room Air 12/26 2300 99.4 112 18 114/70 96 Room Air 12/26 1749 99.6 124 18 118/66 98 Room Air Intake & Output 12/27 1600 12/27 0800 12/27 0000 12/26 1600 12/26 0800 12/26 0000 Intake Total 720 436 608 824 750 Output Total 600 250 250 300 Balance 120 436 608 574 -250 450 Intake, Blood 350 Product Intake, IV 316 208 104 Intake, Oral 720 120 400 720 400 Number 1 2 3 6 Bowel Movements Output, Urine 600 250 250 300 Patient 189 lb 182 lb 184 lb Weight Weight Standing Scale Standing Scale Measurement Method No acute distress Back: no CVA tenderness Abd: Large pelvic mass palpable. Mildly tender Genitalia: Normal male. Sanchez in place draining blood-tinged urine Laboratory Tests 12/27 12/27 12/27 1630 0850 0050 Coagulation PT (9.4 - 12.5 SEC) 13.0 H INR (0.90 - 1.17) 1.24 H APTT (25 - 37 SEC) Pending 39 H 36 Hematology CBC w Diff NO MAN DIFF REQ WBC (4.8 - 10.8 /CUMM) 11.3 H RBC (4.70 - 6.10 /CUMM) 3.06 L Hgb (14.0 - 18.0 G/DL) 8.2 L Hct (42 - 52 %) 25.4 L MCV (80.0 - 94.0 FL) 83.0 MCH (27.0 - 31.0 PG) 26.8 L RDW (11.5 - 14.5 %) 18.2 H Plt Count (130 - 400 /CUMM) 438 H MPV (7.4 - 10.4 FL) 7.2 L Gran % (42.2 - 75.2 %) 78.9 H Lymphocytes % (20.5 - 51.1 %) 9.6 L Monocytes % (1.7 - 9.3 %) 10.3 H Eosinophils % (0 - 5 %) 0.2 Basophils % (0.0 - 2.0 %) 1.0 Absolute Granulocytes (1.4 - 6.5 /CUMM) 8.9 H Absolute Lymphocytes (1.2 - 3.4 /CUMM) 1.1 L Absolute Monocytes (0.10 - 0.60 /CUMM) 1.2 H Absolute Eosinophils (0.0 - 0.7 /CUMM) 0 Absolute Basophils (0.0 - 0.2 /CUMM) 0.1 PUBS MCHC (33.0 - 37.0 G/DL) 32.3 L Assessment/Plan Assessment/Plan Imp: 1. Large pelvic mass. Based on hx this is likely originating from the mass seen on imaging in 2015 which was related to the appendix/cecum. A large mullarian remnant from the prostate could have a similar appearance but this would have been present since and therefore would have been seen on imaging in 2015 2. UTI 3. Hematuria. Likely related to UTI Plan: 1. Agree with present abx 2. Further w/u and tx by general surgery 3. Would f/u on CEA and PSA ordered Consult Acknowledgment - Thank you for your consult request.
[2016-12-27 18:01] LABS: PTT 39 SEC (25-37)
--- NOTE | 2016-12-27 21:02 | Event Note ---
Event Note Event Note: Paged by surgical PA. Plan on taking to OR tmrw. Will be oN gOLYTEL and Heparin drip to be D/C at 6:00am. They also recommended transfusing patient with 2 units of PRBC and to hydrate patient well overnight. Ordered type and screen and 2 PRBCs, and starte dpatient on NS @75mls/hr. He will be NPO over midnight for surgery in am.
[2016-12-27 22:25] VITALS: BP 112/80
[2016-12-28 04:19] LABS: ABSOLUTE BASOPHIL COUNT 0.3 /CUMM (0.0-0.2); ABSOLUTE EOSINOPHIL COUNT 0.1 /CUMM (0.0-0.7); ABSOLUTE GRANULOCYTE CT 7.8 /CUMM (1.4-6.5); ABSOLUTE LYMPH COUNT 1.5 /CUMM (1.2-3.4); ABSOLUTE MONOCYTE COUNT 0.9 /CUMM (0.10-0.60); BASOPHIL % 2.8 % (0.0-2.0); EOSINOPHIL % 1.1 % (0-5); GRANULOCYTE % 73.6 % (42.2-75.2); HEMATOCRIT 27.7 % (42-52); MEAN CORPUSCULAR HGB CONC 32.1 G/DL (33.0-37.0); MEAN CORPUSCULAR VOLUME 84.1 FL (80.0-94.0); MEAN PLATELET VOLUME 7.1 FL (7.4-10.4); PLATELET COUNT 415 /CUMM (130-400); RBC DISTRIBUTION WIDTH 18.4 % (11.5-14.5); WHITE BLOOD CELL COUNT 10.6 /CUMM (4.8-10.8)
[2016-12-28 04:31] LABS: PTT 87 SEC (25-37)
--- NOTE | 2016-12-28 07:19 | PN- Housestaff ---
See Addendum Subjective Follow-up For: Pelvic mass suspicious for malignancy Acute blood loss anemia UTI Loss of consciousness Tele-Events Since Last Visit: Sinus tachycardia HR 100s PACs and PVCs Episode of SVT with HR in the 180s lasting about 5 minutes Subjective: Patient had an episode of supraventricular tachycardia overnight which resolved spontaneously after 5 minutes. He was tachycardic to 180s and blood pressure was 108/84. He remained asymptomatic throughout episode. Patient was seen and examined this morning. He endorses abdominal discomfort, bloating and dysuria. He denies chest pain, nausea or vomiting. Review of Systems Constitutional: Reports: see HPI. Objective Last 24 Hrs of Vital Signs/I&O Vital Signs Date Time Temp Pulse Resp B/P B/P Pulse O2 O2 Flow FiO2 Mean Ox Delivery Rate 12/28 821 98.6 105 18 126/84 95 Room Air 12/27 2225 98.9 106 20 112/80 96 Room Air Intake & Output 12/28 1600 12/28 0800 12/28 0000 Intake Total 600 600 300 Output Total 200 550 400 Balance 400 50 -100 Intake, IV 600 Intake, Oral 600 300 Output, Urine 200 550 400 Physical Exam General Appearance: Alert, Oriented X3, No Acute Distress HEENT: Atraumatic, Mucous Membr. moist/pink Neck: Supple Cardiovascular: Regular Rate, Normal S1, Normal S2, No Murmurs, Gallops, Rubs Lungs: Clear to Auscultation Abdomen: Soft, No Tenderness, Positive Bowel Sounds, Palpable Mass Extending from Pelvis to Abdomen Extremities: No Clubbing, No Cyanosis, 2+ Pitting Edema on Bilateral Lower Extremities Current Medications: Current Medications Sig/Ghulam Start time Last Medication Dose Route Stop Time Status Admin Acetaminophen 325 MG Q6P PRN 12/26 1230 AC PO Ceftriaxone Sodium 1,000 MG 0 12/25 2200 AC 12/27 IV 2129 Ferrous Sulfate 325 MG TID 12/29 1000 AC PO Heparin Sodium 25,000 UNIT Q24H 12/26 0930 DC 12/27 (Porcine) IV 12/28 0600 1910 Sodium Chloride 500 ML Magnesium Oxide 400 MG Q2 12/28 1600 AC PO 12/28 1801 Multivitamins 1 TAB DAILY 12/25 1000 AC Therapeutic PO Phenytoin 200 MG BID 12/25 0011 AC 12/28 PO 0802 Polyethylene Glycol 1 GAL ONE TIME ONE 12/27 1930 DC 12/27 PO 12/27 1930 210 Potassium Chloride 40 MEQ ONCE ONE 12/28 1200 DC 12/28 PO 12/28 1201 1207 Potassium Chloride 10 MEQ Q1H 12/28 1000 DC 12/28 IV 12/28 1101 1207 Potassium Chloride 40 MEQ ONCE ONE 12/28 0900 DC 12/28 PO 12/28 0901 0859 Sodium Chloride 1,000 ML Q13H 12/27 1945 AC 12/28 IV 12/28 2144 0859 Last 24 Hrs of Lab/Yuri Results Last 24 Hrs of Labs/Mics: Laboratory Tests 12/28/16 0330: Anion Gap 7, Estimated GFR > 60, BUN/Creatinine Ratio 20.0, Magnesium 1.5 L, APTT 87 H, CBC w Diff NO MAN DIFF REQ, RBC 3.30 L, MCV 84.1, MCH 27.0, RDW 18.4 H, MPV 7.1 L, Gran % 73.6, Lymphocytes % 14.0 L, Monocytes % 8.5, Eosinophils % 1.1, Basophils % 2.8 H, Absolute Granulocytes 7.8 H, Absolute Lymphocytes 1.5, Absolute Monocytes 0.9 H, Absolute Eosinophils 0.1, Absolute Basophils 0.3, PUBS MCHC 32.1 L Assessment/Plan Assessment: 61 y/o M with PMHx of seizure disorder on Dilantin, PE in 2013 on Coumadin and BPH who is admitted with symptomatic anemia, bilateral lower extremity edema and large pelvic mass extending into the abdomen. 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 Per urology, there does not appear to be a fistula between the mass and the urinary tract. CEA elevated at 19.4. * Oncology, GI, general surgery, urology following. Appreciate their recs. * No additional cardiac workup is necessary for surgery per cardiology given ECHO with normal LVEF and pulmonary pressures and EKG without ischemic changes. * To the OR today for surgical resection +/- bowel resection by general surgery. #Anemia: Iron studies consistent with combination of iron deficiency anemia and anemia of chronic inflammation. S/p 2 units of pRBCs overnight. H/H improved to 8.9/27.7 after 1 unit of pRBCs. * Hematology/oncology following. Appreciate their recs. * Continue to monitor H/H and transfuse as needed. * EGD/colonoscopy to be performed as outpatient for evaluation of iron deficiency anemia and rectal bleeding. * Follow up with hematology as outpatient. * Start iron sulfate 325 mg PO TID once patient is stable. #Loss of consciousness: Episodes of transient LOC most likely represent complex partial seizures, rather than syncope. EEG normal. Cardiology consulted as patient was noted to have significant ectopy on telemetry. Per their eval, LOC is likely related to seizures. * Continue telemetry to monitor for arrhythmias that could be associated with lightheadedness. * Continue prior to admission phenytoin 200 mg PO BID. #Bilateral lower extremity edema: Likely secondary to underlying malignancy rather than decompensated CHF. ECHO with normal LVEF, no wall motion abnormalities and no evidence of pulmonary hypertension. * NTD. #UTI: UCx growing >100,000 colonies/ml of Providencia, sensitive to ceftriaxone and persistent mild dysuria. Hematuria likely secondary to UTI. * Continue ceftriaxone 1 g IV daily. Diet: NPO DVT PPx: IV heparin and ALPs CODE: FULL Problem List: 1. Pelvic mass in male 2. UTI (urinary tract infection) 3. Iron deficiency anemia 4. Rectal bleeding 5. Hematuria 6. Anemia of chronic disease 7. Seizure 8. Bilateral lower extremity edema Pain Ratin Pain Location: N/A Pain Goal: Remain pain free Pain Plan: Tylenol 325 mg PO Q6H Tomorrow's Labs & Rationales: CBC to monitor H/H post-operatively BMP and Mg to monitor lytes and kidney function in the setting of hypokalemia and hypomagnesemia
--- NOTE | 2016-12-28 07:30 | PN- Gastroenterology ---
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 Land, with worsening anemia, with H/H from that a.m. 7.8/24.4. Upon arrival to the ER, BP 125/88, P 116, R 22, T 97.8, O2 sat RA 99%. At first, the patient claimed he had no idea why he was in the ER. He was then complaining of generalized weakness, right-sided abdominal pain, and occasional GERD. He also noted bilateral lower extremity pitting edema for unknown duration. He denied any increased abdominal girth. *The patient has a known abdominal pelvic mass, dating back over 2 years, along with the anemia, for which he had previously seen Dr. French. It is clearly documented that Dr. French had previously urged the patient to undergo GI workup, but the patient refused. The patient now states he "knew nothing about the mass." He then later stated he "knew about it, but wasn't aware of the severity." 10/11/2014: CT AP with IV/po contrast- 3.0 x 1.8 x 2.4 cm oval, hypodense mass in the right hemipelvis, along with thoraco-lumbar compression fractures and markedly enlarged prostate. 10/17/2014: Abdominal pelvic ultrasound- limited study of cystic mass in the pelvis, with prostatomegaly. 11/12/2014: MRI of pelvis with and without gadolinium- complex cystic mass in the right lower quadrant at the base of the cecum with apparent communication to the appendix. The patient denied any change in stool caliber, diarrhea, constipation, obstipation, or tenesmus. He noted scant painless rectal bleeding only after defecation of brown stool, without any spontaneous lower GI bleeding or melena. He denied any blood transfusions prior to this admission. He denied any weight loss, but rather noted weight gain, in conjunction with the peripheral edema. He denied any fevers, chills, night sweats, change in appetite, jaundice, dark urine, light stool, or pruritus. With regards to the mild reflux, he denied any odynophagia, dysphagia, hematemesis, or early satiety. He denied any gross hematuria, bone pain, chest pain, shortness of breath, or hemoptysis. He denied any acute neurologic symptoms, except for the fact that he may have had a seizure vs. unwitneesed syncope within the past week [employer]. 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 He has noted some mild dyspnea on exertion lately. He denied any pleuritic pain. He initially denied any symptoms of UTI or URI to me, but later told the medical house staff he had urinary frequency and dysuria. He was put on IV Ceftriaxone for turbid urine with pyuria and microscopic hematuria, as well as for the gas-containing abdominal pelvic mass, which may be fistulizing and/or invading the urinary bladder. The patient is tolerating solids po without difficulty. He has never had an EGD or colonoscopy, nor any surgery. He has been seen by medicine, surgery, oncology, and neurology. *The patient is now willing to undergo treatment and workup of his abdominal pelvic mass, which he has been delinquent with for the past 2 years. Both of the patient's parents of some unknown malignancy, but there is no documented family history of GI malignancy. 12/24/2016: Admission labs- WBC 10 (82% granulocytes/8 granulocyte Ab), H/H 7.8/ 24.4, normal MCV 82, RDW 17.4, PLT 482, PT 20.3, INR 1.95, PTT 29, glucose 93, BUN/Cr 25/1.0, GFR > 60, Na 133, K 4.2, HCO3 25, AG 10, Ca 7.9, albumin 2.6, globulin 3.1, TBil 0.5, alk phos 101, AST 21, ALT 30, TChol 153, TG 83, HDL 64, LDL 73, TSHR 2.74, HgbA1C 5.8, *low [Phenytoin] 9.3. 12/24/2016: *Total PSA 6.6, Free PSA 0.6, % Free PSA 9 12/24/2016: U/A- turbid, yellow, 1.020, 7.5, 25-50 RBC, packed WBC, packed bacteria, large Hgb, 100+ protein, pos nitrite, large esterase. 12/24/2016: UC > 100K GNR with ID/sens- pending. 12/25/2016: WBC 9, H/H 7.1/22, PLT 431, PT 22.2, INR 2.13, BUN/Cr 21/0.9, GFR > 60, Na 133, K 3.9, HCO3 27, AG 8, troponin < .01, low Fe 26, low TIBC 226, low Fe sat 11.5%, *low ferritin 17.4, B12 765, folate 17.5 12/24/2016: XRY-CHEST XRAY, PA AND LATERAL- Hiatal hernia. Osteopenia with mild compression deformity of a lower thoracic vertebra. Basilar subsegmental atelectasis or scarring, otherwise unremarkable. 12/24/2016: US TRIPLEX OF LOWER EXTREMITIES, BILATERAL- 1. Normal triplex scan without evidence of deep venous thrombosis involving the lower extremities. 2. Right leg Popliteal cyst. 3. Bilateral subcutaneous edema. 12/24/2016: CT CHEST, ABDOMEN AND PELVIS WITH IV CONTRAST- CTA CHEST: Normal except large hiatal hernia. Asymmetric elevation of the right hemidiaphragm with atelectasis at the right base. CT SCAN ABDOMEN PELVIS: Large mass in the lower central pelvis (14.2 x 12.6 x 16.2 cm). This mass impress upon the vessels along the pelvic sidewall, but does not occlude the pelvic veins. This does not impress upon the IVC. The mass displaces the urinary bladder and compresses upon the prostate There are air collections within the mass and the mass may have engulfed bowel loops. This does not cause obstruction to the bowel. No suspicious liver lesion. Normal spleen and pancreas. Normal kidneys. Appendix is not identified. No ascites. No free air. Fat containing RIH. Enlarged prostate. Bladder "unremarkable," but displaced. DJD. Chronic compression deformity L4. 12/25/2016: EKG- ST @ 106, normal axis, borderline prolonged QT interval, early transition, occasional unifocal PVCs, no acute ischemic changes. 12/25/2016: EEG- normal EEG in wake state. *At the moment, I am not convinced that the patient has a primary colonic neoplasm. He could have a mucinous cystadenoma/mucinous cystadenocarcinoma of the appendix, which has grown over the past 2 years, since 09/2014. Other possibilities could include a neuroendocrine tumor originating in the appendix/ ileum. Additionally, it appears that the growth is communicating and/or invading the urinary bladder. A less likely possibility could include a primary urologic tumor encapsulating the bowel. Doubt IBD and/or lymphoma. Please note , the patient has a huge prostate, which is rock hard and nodular on exam. 12/24/2016: UC > 100K Providencia (S- Ceftriaxone, which patient is on). 12/25/2016: *CEA 19.4 12/25/2016: ECHOCARDIOGRAM- Technically limited study. Normal LVEF 55-60%. No obvious regional wall motion abnormalities. No gross valvulopathy. Disproportionate thickening of the interventricular septum, with lipomatous hypertrophy of the interatrial septum. 12/25/2016: RENAL ULTRASOUND- Neither hydronephrosis nor nephrolithiasis. Heterogeneous pelvic mass (15.2 cm in greatest dimension), with vascular flow demonstrable. The urinary bladder is not demonstrable. 12/25/2016: CT ABDOMEN AND PELVIS WITH IV/PO CONTRAST- 1. A large pelvic mass is redemonstrated. This is circumscribed, of soft tissue density and shows central gas, suggesting communication with bowel. Differential possibilities include but are not limited to: Giant mucocele of the appendix, gastrointestinal stromal tumor and sarcoma. 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 Recommend General Surgery evaluation and management. Urinary bladder decompressed by Sanchez & anteriorly displaced. 2. There are 3 subcentimeter low-attenuation foci within the right hepatic lobe, likely cysts or hemangiomas. These could be more fully evaluated with ultrasound or MRI, if clinically indicated. No dilated ducts. Normal gallbladder. 3. There is a large hiatus hernia. 4. There is constipation without reinaldo obstruction, likely related to pelvic mass effect. 5. There is generalized anasarca. 6. There are small fat-containing umbilical and right inguinal hernias. 7. There is prostatomegaly. 8. There is a moderate L4 compression fracture redemonstrated. *Weekend coverage nodes appreciated (seen in coverage by Dr. Varma for GI). Extensive records reviewed. The patient was seen by urology. Repeat imaging studies over the weekend did not show any definite communication between the large pelvic mass and the bladder, however there were read by a radiologist. The patient is scheduled for the OR today, 12/28/2016, as per surgery & is NPO. He tolerated clears po over the weekend. He received a bowel prep per surgery. IV heparin was held at 6 AM 12/28/2016 preop, per surgery. The patient is being transfused on 12/28/2016. Baseline EGD and baseline colonoscopy are obviously canceled, and the patient was informed that these should be done as an outpatient, postoperatively, after he recuperates, for full workup of his iron deficiency and scant rectal bleeding. Obviously, a large majority of his iron deficiency could be explained by his abdominal pelvic mass, with which he has been delinquent in follow-up for the past 2 years. *As of 12/28/2016, the patient remained hemodynamically stable and afebrile. He denied any obstructive symptoms. There is no constipation, obstipation, diarrhea, or tenesmus. He denied any recurrent rectal bleeding. He has chronic right sided abdominal pain. He had mild dysuria. SUGGEST: *Await OR. *Follow-up with numerous consultants. *Continue IV Ceftriaxone. * Follow-up cultures. *Check INR daily for now, aiming for < 1.50, while on IV heparin. *EGD/colonoscopy will be put on hold. (Colonoscopy will be technically difficult in this patient, based on his anatomy, and when performed as outpatient, a pediatric colonoscope would be used). *The ultimate decision for long-term anti-coagulation therapy will be made by hematology, after the above is sorted out. T&C 2u PRBC. Check CBC BID for now. Keep Hgb > 7 (no documented ASHD). Supplemental oxygen as needed. Replete potassium, as per medical team.* The above findings and recommendations were discussed with the patient & the medical house staff. *He was given my office number. The case was also previously discussed with Dr. Proctor and Dr. French on 12/25/2016. *The patient was told to contact me as an outpatient after he recuperates postoperatively, for elective baseline EGD and baseline colonoscopy (with pediatric colonoscope), for full evaluation of iron deficiency anemia and scant rectal bleeding. Obviously, a vast majority of the iron deficiency is from the abdominal pelvic mass. Await eventual surgical pathology. *Consideration for outpatient MRI of the liver with hepatic mass protocol (double hepatic cysts vs. hemangiomas seen on imaging studies > mets). Will defer to oncology for possible PET scan postoperatively. *Further inpatient GI follow up as needed. Problem List: 1. Pelvic mass in male 2. Abdominal pain 3. Iron deficiency anemia 4. Abnormal CT of the abdomen 5. Rectal bleeding 6. Malnutrition 7. UTI (urinary tract infection) Subjective Subjective: 12/24/2016: UC > 100K Providencia (S- Ceftriaxone, which patient is on). 12/25/2016: *CEA 19.4 12/25/2016: ECHOCARDIOGRAM- Technically limited study. Normal LVEF 55-60%. No obvious regional wall motion abnormalities. No gross valvulopathy. Disproportionate thickening of the interventricular septum, with lipomatous hypertrophy of the interatrial septum. 12/25/2016: RENAL ULTRASOUND- Neither hydronephrosis nor nephrolithiasis. Heterogeneous pelvic mass (15.2 cm in greatest dimension), with vascular flow demonstrable. The urinary bladder is not demonstrable. 12/25/2016: CT ABDOMEN AND PELVIS WITH IV/PO CONTRAST- 1. A large pelvic mass is redemonstrated. This is circumscribed, of soft tissue density and shows central gas, suggesting communication with bowel. Differential possibilities include but are not limited to: Giant mucocele of the appendix, gastrointestinal stromal tumor and sarcoma. 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 Recommend General Surgery evaluation and management. Urinary bladder decompressed by Sanchez & anteriorly displaced. 2. There are 3 subcentimeter low-attenuation foci within the right hepatic lobe, likely cysts or hemangiomas. These could be more fully evaluated with ultrasound or MRI, if clinically indicated. No dilated ducts. Normal gallbladder. 3. There is a large hiatus hernia. 4. There is constipation without reinaldo obstruction, likely related to pelvic mass effect. 5. There is generalized anasarca. 6. There are small fat-containing umbilical and right inguinal hernias. 7. There is prostatomegaly. 8. There is a moderate L4 compression fracture redemonstrated. *Weekend coverage nodes appreciated (seen in coverage by Dr. Varma for GI). Extensive records reviewed. The patient was seen by urology. Repeat imaging studies over the weekend did not show any definite communication between the large pelvic mass and the bladder, however there were read by a radiologist. The patient is scheduled for the OR today, 12/28/2016, as per surgery & is NPO. He tolerated clears po over the weekend. He received a bowel prep per surgery. IV heparin was held at 6 AM 12/28/2016 preop, per surgery. The patient is being transfused on 12/28/2016. Baseline EGD and baseline colonoscopy are obviously canceled, and the patient was informed that these should be done as an outpatient, postoperatively, after he recuperates, for full workup of his iron deficiency and scant rectal bleeding. Obviously, a large majority of his iron deficiency could be explained by his abdominal pelvic mass, with which he has been delinquent in follow-up for the past 2 years. *As of 12/28/2016, the patient remained hemodynamically stable and afebrile. He denied any obstructive symptoms. There is no constipation, obstipation, diarrhea, or tenesmus. He denied any recurrent rectal bleeding. He has chronic right sided abdominal pain. He had mild dysuria. Review of Systems: Full 14 point ROS otherwise noncontributory and as above. Review of Systems Constitutional: Reports: weakness. Denies: chills, diaphoresis, fever, malaise, unexplained weight loss. EENTM: Denies: blurred vision, double vision, visual changes, eye pain, eye drainage, eye tearing, icterus, ear discharge, ear pain, ear redness, hearing changes, nasal congestion, epistaxis, nasal pain, throat pain, throat swelling, mouth pain, tooth pain. Cardiovascular: Reports: edema. Denies: chest pain, orthopena, palpitations, peripheral edema, syncope. Respiratory: Reports: mild short of breath (AZEVEDO). Denies: cough, hemoptysis, orthopnea, sputum production, stridor, wheezing. GI: Reports: abdominal pain, bloody stool (scant BRBPR). Denies: bloating, constipation, diarrhea, distention, bowel incontinence, melena , nausea, changes in stool, vomiting, steatorrhea. Genitourinary: Reports: dysuria, frequency. Denies: discharge, hematuria, hesitation, nocturia , pain, urgency. Musculoskeletal: Reports: back pain (TL compression fxs). Denies: gout, joint pain, joint swelling, muscle pain, muscle stiffness, neck pain. Skin: Denies: cysts, change in skin color, change in hair/nails, dryness, erythema, jaundice, lesions, lymphangitis, lumps, moles, rash. Neurological/Psychological: Reports: emotional problems (post encephalitis), weakness. Denies: anxiety, ataxia, cognitive dysfunction, confusion, depressed, dementia, headache, numbness, paresthesia, pre-existing deficit, petit mal seizures, tingling, tremors, tonic-clonic seizures, unable to move lower ext, unable to move upper ext. Hematologic/Endocrine: Denies: bruising, bleeding, polyuria, polydipsia. Immunologic/Allergic: Denies: splenectomy, HIV/AIDS, lymphadenopathy. All Other Systems: Reviewed and Negative Objective Vital Signs and I&Os Vital Signs Date Time Temp Pulse Resp B/P B/P Pulse O2 O2 Flow FiO2 Mean Ox Delivery Rate 12/275 98.9 106 20 112/80 96 Room Air 12/27 1719 98.6 100 18 126/72 97 12/27 0853 97.5 107 20 112/70 95 Room Air Intake & Output 12/28 1600 12/28 0400 12/27 1600 12/27 0400 12/26 1600 12/26 0400 Intake Total 300 1156 608 824 750 Output Total 400 600 500 300 Balance -100 556 608 324 450 Intake, Blood 350 Product Intake, IV 316 208 104 Intake, Oral 300 840 400 720 400 Number 3 3 6 Bowel Movements Output, Urine 400 600 500 300 Patient 189 lb 182 lb Weight Weight Standing Scale Standing Scale Measurement Method Physical Exam: Well-developed, slightly malnourished male, slightly flat affect, in no apparent distress. There appears to be some component of denial. Sclera anicteric. Conjunctiva pink. Oropharynx clear. No oral thrush. No aphthous ulcers. There is no adenopathy, thyromegaly, or JVD. No peripheral stigmata of inflammatory bowel disease or chronic liver disease on exam. No spiders on the anterior chest wall. No gynecomastia. No CVA tenderness. No spine tenderness. Lungs: clear to A&P, with slight decreased breath sounds at the bases B/L, R > L. No wheezing, rales, or rhonchi. Heart exam: regular rate rhythm, S1 and S2, without any murmur. Abdominal exam: normal bowel sounds, mass effect in right-mid abdomen and entire lower abdomen, especially in the suprapubic region, with hard nodularity, mildly tender, without guarding or rebound. Small reducible RIH. No organomegaly. No fluid shift. No pulsatile mass. Digital rectal exam: done by myself 12/25/16: Hard nodular ? prostate, nontender, with extrinsic mass palpated on the anterior rectal wall, with intact mucosa. No stool in vault, but scant BRB, obviously OB positive. Normal sphincter tone. No external hemorrhoids. No fissure. No perianal disease. Extremities: without cyanosis or clubbing. 2+ pitting edema B/L LE, without palpable cords. Distal pulses 2+ bilaterally. DTRs 1+ bilaterally. Bilateral Dupuytren's contractures of the pinkies. No palmar erythema. Alert and oriented x 3. No tremor. No asterixis. Motor 5/5 B/L. Nonfocal brief neurologic exam, although a detailed exam for peripheral neuropathy was deferred. Current Medications: Current Medications Sig/Ghulam Start time Last Medication Dose Route Stop Time Status Admin Acetaminophen 325 MG Q6P PRN 12/26 1230 AC PO Ceftriaxone Sodium 1,000 MG 12/250 AC 12/27 IV 2129 Heparin Sodium 6,200 UNIT ONCE ONE 12/27 1115 DC 12/27 (Porcine) IV 12/27 1116 1121 Heparin Sodium 25,000 UNIT Q24H 12/26 0930 DC 12/27 (Porcine) IV 12/28 0600 1910 Sodium Chloride 500 ML Multivitamins 1 TAB DAILY 12/25 1000 AC Therapeutic PO Phenytoin 200 MG BID 12/25 0011 AC 12/27 PO 2112 Polyethylene Glycol 1 GAL ONE TIME ONE 12/27 1930 DC 12/27 PO 12/27 193 2103 Sodium Chloride 1,000 ML Q13H 12/27 1945 AC 12/28 IV 12/28 2144 0200 Results Pertinent Lab Results: Laboratory Tests 12/28 12/27 0330 1630 Chemistry Sodium (137 - 145 mmol/L) 134 L Potassium (3.5 - 5.1 mmol/L) 3.3 L Chloride (98 - 107 mmol/L) 100 Carbon Dioxide (22 - 30 mmol/L) 27 Anion Gap (5 - 16) 7 BUN (9 - 20 mg/dL) 16 Creatinine (0.7 - 1.2 mg/dL) 0.8 Estimated GFR (>60 ml/min) > 60 BUN/Creatinine Ratio (7 - 25 %) 20.0 Coagulation APTT (25 - 37 SEC) 87 H 39 H Hematology CBC w Diff NO MAN DIFF REQ WBC (4.8 - 10.8 /CUMM) 10.6 RBC (4.70 - 6.10 /CUMM) 3.30 L Hgb (14.0 - 18.0 G/DL) 8.9 L Hct (42 - 52 %) 27.7 L MCV (80.0 - 94.0 FL) 84.1 MCH (27.0 - 31.0 PG) 27.0 RDW (11.5 - 14.5 %) 18.4 H Plt Count (130 - 400 /CUMM) 415 H MPV (7.4 - 10.4 FL) 7.1 L Gran % (42.2 - 75.2 %) 73.6 Lymphocytes % (20.5 - 51.1 %) 14.0 L Monocytes % (1.7 - 9.3 %) 8.5 Eosinophils % (0 - 5 %) 1.1 Basophils % (0.0 - 2.0 %) 2.8 H Absolute Granulocytes (1.4 - 6.5 /CUMM) 7.8 H Absolute Lymphocytes (1.2 - 3.4 /CUMM) 1.5 Absolute Monocytes (0.10 - 0.60 /CUMM) 0.9 H Absolute Eosinophils (0.0 - 0.7 /CUMM) 0.1 Absolute Basophils (0.0 - 0.2 /CUMM) 0.3 PUBS MCHC (33.0 - 37.0 G/DL) 32.1 L 12/27 12/27 12/26 0850 0050 1730 Coagulation PT (9.4 - 12.5 SEC) 13.0 H INR (0.90 - 1.17) 1.24 H APTT (25 - 37 SEC) 39 H 36 29 Hematology CBC w Diff NO MAN DIFF REQ WBC (4.8 - 10.8 /CUMM) 11.3 H RBC (4.70 - 6.10 /CUMM) 3.06 L Hgb (14.0 - 18.0 G/DL) 8.2 L Hct (42 - 52 %) 25.4 L MCV (80.0 - 94.0 FL) 83.0 MCH (27.0 - 31.0 PG) 26.8 L RDW (11.5 - 14.5 %) 18.2 H Plt Count (130 - 400 /CUMM) 438 H MPV (7.4 - 10.4 FL) 7.2 L Gran % (42.2 - 75.2 %) 78.9 H Lymphocytes % (20.5 - 51.1 %) 9.6 L Monocytes % (1.7 - 9.3 %) 10.3 H Eosinophils % (0 - 5 %) 0.2 Basophils % (0.0 - 2.0 %) 1.0 Absolute Granulocytes (1.4 - 6.5 /CUMM) 8.9 H Absolute Lymphocytes (1.2 - 3.4 /CUMM) 1.1 L Absolute Monocytes (0.10 - 0.60 /CUMM) 1.2 H Absolute Eosinophils (0.0 - 0.7 /CUMM) 0 Absolute Basophils (0.0 - 0.2 /CUMM) 0.1 PUBS MCHC (33.0 - 37.0 G/DL) 32.3 L 12/26 12/25 0650 2009 Chemistry Sodium (137 - 145 mmol/L) 132 L Potassium (3.5 - 5.1 mmol/L) 3.7 Chloride (98 - 107 mmol/L) 98 Carbon Dioxide (22 - 30 mmol/L) 24 Anion Gap (5 - 16) 10 BUN (9 - 20 mg/dL) 20 Creatinine (0.7 - 1.2 mg/dL) 1.0 Estimated GFR (>60 ml/min) > 60 BUN/Creatinine Ratio (7 - 25 %) 20.0 Coagulation PT (9.4 - 12.5 SEC) 18.2 H INR (0.90 - 1.17) 1.74 H Hematology CBC w Diff NO MAN DIFF REQ NO MAN DIFF REQ WBC (4.8 - 10.8 /CUMM) 8.8 11.2 H RBC (4.70 - 6.10 /CUMM) 3.09 L 3.14 L Hgb (14.0 - 18.0 G/DL) 8.3 L 8.3 L Hct (42 - 52 %) 25.4 L 26.0 L MCV (80.0 - 94.0 FL) 82.3 82.8 MCH (27.0 - 31.0 PG) 26.9 L 26.6 L RDW (11.5 - 14.5 %) 17.5 H 17.6 H Plt Count (130 - 400 /CUMM) 440 H 436 H MPV (7.4 - 10.4 FL) 6.9 L 6.9 L Gran % (42.2 - 75.2 %) 76.6 H 81.4 H Lymphocytes % (20.5 - 51.1 %) 10.9 L 7.9 L Monocytes % (1.7 - 9.3 %) 12.3 H 9.9 H Eosinophils % (0 - 5 %) 0.1 0 Basophils % (0.0 - 2.0 %) 0.1 0.8 Absolute Granulocytes (1.4 - 6.5 /CUMM) 6.7 H 9.1 H Absolute Lymphocytes (1.2 - 3.4 /CUMM) 1.0 L 0.9 L Absolute Monocytes (0.10 - 0.60 /CUMM) 1.1 H 1.1 H Absolute Eosinophils (0.0 - 0.7 /CUMM) 0 0 Absolute Basophils (0.0 - 0.2 /CUMM) 0 0.1 PUBS MCHC (33.0 - 37.0 G/DL) 32.7 L 32.1 L 12/25 UNK Chemistry Vitamin B12 Cancelled Imaging/Other Studies: 12/24/2016: XRY-CHEST XRAY, PA AND LATERAL- Hiatal hernia. Osteopenia with mild compression deformity of a lower thoracic vertebra. Basilar subsegmental atelectasis or scarring, otherwise unremarkable. 12/24/2016: US TRIPLEX OF LOWER EXTREMITIES, BILATERAL- 1. Normal triplex scan without evidence of deep venous thrombosis involving the lower extremities. 2. Right leg Popliteal cyst. 3. Bilateral subcutaneous edema. 12/24/2016: CT CHEST, ABDOMEN AND PELVIS WITH IV CONTRAST- CTA CHEST: Normal except large hiatal hernia. Asymmetric elevation of the right hemidiaphragm with atelectasis at the right base. CT SCAN ABDOMEN PELVIS: Large mass in the lower central pelvis (14.2 x 12.6 x 16.2 cm). This mass impress upon the vessels along the pelvic sidewall, but does not occlude the pelvic veins. This does not impress upon the IVC. The mass displaces the urinary bladder and compresses upon the prostate There are air collections within the mass and the mass may have engulfed bowel loops. This does not cause obstruction to the bowel. No suspicious liver lesion. Normal spleen and pancreas. Normal kidneys. Appendix is not identified. No ascites. No free air. Fat containing RIH. Enlarged prostate. Bladder "unremarkable," but displaced. DJD. Chronic compression deformity L4. 12/25/2016: EKG- ST @ 106, normal axis, borderline prolonged QT interval, early transition, occasional unifocal PVCs, no acute ischemic changes. 12/25/2016: EEG- normal EEG in wake state. 12/25/2016: ECHOCARDIOGRAM- Technically limited study. Normal LVEF 55-60%. No obvious regional wall motion abnormalities. No gross valvulopathy. Disproportionate thickening of the interventricular septum, with lipomatous hypertrophy of the interatrial septum. 12/25/2016: RENAL ULTRASOUND- Neither hydronephrosis nor nephrolithiasis. Heterogeneous pelvic mass (15.2 cm in greatest dimension), with vascular flow demonstrable. The urinary bladder is not demonstrable. 12/25/2016: CT ABDOMEN AND PELVIS WITH IV/PO CONTRAST- 1. A large pelvic mass is redemonstrated. This is circumscribed, of soft tissue density and shows central gas, suggesting communication with bowel. Differential possibilities include but are not limited to: Giant mucocele of the appendix, gastrointestinal stromal tumor and sarcoma. 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 Recommend General Surgery evaluation and management. 2. There are 3 subcentimeter low-attenuation foci within the right hepatic lobe, likely cysts or hemangiomas. These could be more fully evaluated with ultrasound or MRI, if clinically indicated. 3. There is a large hiatus hernia. 4. There is constipation without reinaldo obstruction, likely related to pelvic mass effect. 5. There is generalized anasarca. 6. There are small fat-containing umbilical and right inguinal hernias. 7. There is prostatomegaly. 8. There is a moderate L4 compression fracture redemonstrated.
[2016-12-28 08:22] VITALS: BP 126/84
--- NOTE | 2016-12-28 08:55 | PN- Oncology ---
Subjective Subjective: Mr. Carrion states he did not realized that he had a mass and it was that serious of an issue. He reports abdominal pain. He has lower extremity swelling still. He denies any fever or chills. He has no nausea or vomiting. He denies any chest pain. Review of Systems Constitutional: Denies: chills, fever. Cardiovascular: Denies: chest pain. Respiratory: Denies: short of breath. Gastrointestinal: Reports: abdominal pain, bloating, diarrhea. Genitourinary: Reports: dysuria, pain. Musculoskeletal: Denies: back pain. All Other Systems: Reviewed and Negative Objective Vital Signs and I&Os Vital Signs Date Time Temp Pulse Resp B/P B/P Pulse O2 O2 Flow FiO2 Mean Ox Delivery Rate 12/275 98.9 106 20 112/80 96 Room Air 12/27 1719 98.6 100 18 126/72 97 12/27 0853 97.5 107 20 112/70 95 Room Air Intake & Output 12/28 1600 12/28 0800 12/28 0000 12/27 1600 12/27 0800 12/27 0000 Intake Total 300 720 436 608 Output Total 400 600 Balance -100 120 436 608 Intake, IV 316 208 Intake, Oral 300 720 120 400 Number 1 2 3 Bowel Movements Output, Urine 400 600 Patient 85.899 kg Weight Weight Standing Scale Measurement Method Physical Exam General Appearance: no apparent distress, alert, awake, comfortable Head: atraumatic Neck: supple Respiratory: normal breath sounds, chest non-tender, no respiratory distress Cardiovascular: regular rate/rhythm Abdomen: tenderness (diffuse), mass (lower abdomen), decreased bowel sounds Extremities: 2+ lower extremity edema Neurologic/Psychiatric: awake, alert, oriented x 3 Skin: intact Current Medications: Current Medications Sig/Ghulam Start time Last Medication Dose Route Stop Time Status Admin Acetaminophen 325 MG Q6P PRN 12/26 1230 AC PO Ceftriaxone Sodium 1,000 MG 0 12/25 2200 AC 12/27 IV 2129 Heparin Sodium 6,200 UNIT ONCE ONE 12/27 1115 DC 12/27 (Porcine) IV 12/27 1116 1121 Heparin Sodium 25,000 UNIT Q24H 12/26 0930 DC 12/27 (Porcine) IV 12/28 0600 1910 Sodium Chloride 500 ML Multivitamins 1 TAB DAILY 12/25 1000 AC Therapeutic PO Phenytoin 200 MG BID 12/25 0011 AC 12/28 PO 0802 Polyethylene Glycol 1 GAL ONE TIME ONE 12/27 1929 DC 12/27 PO 12/27 1930 210 Sodium Chloride 1,000 ML Q13H 12/27 1944 AC 12/28 IV 12/28 2144 0200 Results Last 24 Hours of Lab Results: Laboratory Tests 12/28 12/27 0330 1630 Chemistry Sodium (137 - 145 mmol/L) 134 L Potassium (3.5 - 5.1 mmol/L) 3.3 L Chloride (98 - 107 mmol/L) 100 Carbon Dioxide (22 - 30 mmol/L) 27 Anion Gap (5 - 16) 7 BUN (9 - 20 mg/dL) 16 Creatinine (0.7 - 1.2 mg/dL) 0.8 Estimated GFR (>60 ml/min) > 60 BUN/Creatinine Ratio (7 - 25 %) 20.0 Coagulation APTT (25 - 37 SEC) 87 H 39 H Hematology CBC w Diff NO MAN DIFF REQ WBC (4.8 - 10.8 /CUMM) 10.6 RBC (4.70 - 6.10 /CUMM) 3.30 L Hgb (14.0 - 18.0 G/DL) 8.9 L Hct (42 - 52 %) 27.7 L MCV (80.0 - 94.0 FL) 84.1 MCH (27.0 - 31.0 PG) 27.0 RDW (11.5 - 14.5 %) 18.4 H Plt Count (130 - 400 /CUMM) 415 H MPV (7.4 - 10.4 FL) 7.1 L Gran % (42.2 - 75.2 %) 73.6 Lymphocytes % (20.5 - 51.1 %) 14.0 L Monocytes % (1.7 - 9.3 %) 8.5 Eosinophils % (0 - 5 %) 1.1 Basophils % (0.0 - 2.0 %) 2.8 H Absolute Granulocytes (1.4 - 6.5 /CUMM) 7.8 H Absolute Lymphocytes (1.2 - 3.4 /CUMM) 1.5 Absolute Monocytes (0.10 - 0.60 /CUMM) 0.9 H Absolute Eosinophils (0.0 - 0.7 /CUMM) 0.1 Absolute Basophils (0.0 - 0.2 /CUMM) 0.3 PUBS MCHC (33.0 - 37.0 G/DL) 32.1 L 12/27 0850 Coagulation PT (9.4 - 12.5 SEC) 13.0 H INR (0.90 - 1.17) 1.24 H APTT (25 - 37 SEC) 39 H Hematology CBC w Diff NO MAN DIFF REQ WBC (4.8 - 10.8 /CUMM) 11.3 H RBC (4.70 - 6.10 /CUMM) 3.06 L Hgb (14.0 - 18.0 G/DL) 8.2 L Hct (42 - 52 %) 25.4 L MCV (80.0 - 94.0 FL) 83.0 MCH (27.0 - 31.0 PG) 26.8 L RDW (11.5 - 14.5 %) 18.2 H Plt Count (130 - 400 /CUMM) 438 H MPV (7.4 - 10.4 FL) 7.2 L Gran % (42.2 - 75.2 %) 78.9 H Lymphocytes % (20.5 - 51.1 %) 9.6 L Monocytes % (1.7 - 9.3 %) 10.3 H Eosinophils % (0 - 5 %) 0.2 Basophils % (0.0 - 2.0 %) 1.0 Absolute Granulocytes (1.4 - 6.5 /CUMM) 8.9 H Absolute Lymphocytes (1.2 - 3.4 /CUMM) 1.1 L Absolute Monocytes (0.10 - 0.60 /CUMM) 1.2 H Absolute Eosinophils (0.0 - 0.7 /CUMM) 0 Absolute Basophils (0.0 - 0.2 /CUMM) 0.1 PUBS MCHC (33.0 - 37.0 G/DL) 32.3 L Recent Imaging Studies: CT abd/pelvis 12/27/2016: 1. A large pelvic mass is redemonstrated. This is circumscribed, of soft tissue density and shows central gas, suggesting communication with bowel. Differential possibilities include but are not limited to: Giant mucocele of the appendix, gastrointestinal stromal tumor and sarcoma. 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 Recommend General Surgery evaluation and management. 2. There are 3 subcentimeter low-attenuation foci within the right hepatic lobe, likely cysts or hemangiomas. These could be more fully evaluated with ultrasound or MRI, if clinically indicated. 3. There is a large hiatus hernia. 4. There is constipation without reinaldo obstruction, likely related to pelvic mass effect. 5. There is generalized anasarca. 6. There are small fat-containing umbilical and right inguinal hernias. 7. There is prostatomegaly. 8. There is a moderate L4 compression fracture redemonstrated. CTA chest/CT abdomen/pelvis 12/24/2016: CTA CHEST: Normal. CT SCAN ABDOMEN PELVIS: Large mass in the lower central pelvis. This mass impress upon the vessels along the pelvic sidewall but does not occlude the pelvic veins. This does not impress upon the IVC. There is air collections within the mass and the mass may have engulfed bowel loops. This does not cause obstruction to the bowel. Assessment/Plan Assessment/Recommendations: Mr. Carrion is a 61-year-old male with history of seizure, PE, abdominal mass in 2014 who presents with symptomatic anemia. Imaging demonstrated a pelvic mass with possible communication with bowel but no definite with bladder. He is currently scheduled to go to OR today for evaluation of the mass and likely resection. His anemia demonstrated iron deficiency and chronic inflammation. Underlying deficiency is likely relative to pelvic mass. He will need iron supplementation. 1. Follow up pathology from [facility] 2. Iron sulfate 325 mg TID once stable 3. Follow up as outpatient Please call [phone] with any questions. Problem List: 1. Hematuria 2. Symptomatic anemia 3. Acute blood loss anemia 4. Iron deficiency anemia 5. Pelvic mass in male
--- NOTE | 2016-12-28 09:01 | PN- Student ---
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 Overnight, the patient went into ?SVT vs. paroxysmal atrial fibrillation which lasted approximately 5 minutes. 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 Surgery was contacted and has decided to take the patient to the OR today. He has been NPO since midnight, has been on GoLytely, and IV heparin was stopped at 0600. He is anxious this morning, but states he otherwise feels okay. He endorses some nausea and abdominal pain when defecating. He denies headache, dizziness, vomiting, dyspnea, and chest pain. Current Medications Sig/Ghulam Start time Last Medication Dose Route Stop Time Status Admin Acetaminophen 325 MG Q6P PRN 12/26 1230 AC PO Ceftriaxone Sodium 1,000 MG 2200 12/25 2200 AC 12/27 IV 2129 Heparin Sodium 6,200 UNIT ONCE ONE 12/27 1115 DC 12/27 (Porcine) IV 12/27 1116 1121 Heparin Sodium 25,000 UNIT Q24H 12/26 0930 DC 12/27 (Porcine) IV 12/28 0600 1910 Sodium Chloride 500 ML Multivitamins 1 TAB DAILY 12/25 1000 AC Therapeutic PO Phenytoin 200 MG BID 12/25 0011 AC 12/28 PO 0802 Polyethylene Glycol 1 GAL ONE TIME ONE 12/27 1930 DC 12/27 PO 12/27 1931 2103 Potassium Chloride 40 MEQ ONCE ONE 12/28 1200 AC PO 12/28 1201 Potassium Chloride 40 MEQ ONCE ONE 12/28 0900 AC 12/28 PO 12/28 0901 0859 Sodium Chloride 1,000 ML Q13H 12/27 1945 AC / IV 12/28 2144 0859 Objective Objective: Vital Signs Date Time Temp Pulse Resp B/P B/P Pulse O2 O2 Flow FiO2 Mean Ox Delivery Rate 12/28 08 98.6 105 18 126/84 95 Room Air 12/27 2225 98.9 106 20 112/80 96 Room Air 12/27 1719 98.6 100 18 126/72 97 Intake & Output 12/28 1600 12/28 0800 12/28 0000 Intake Total 600 300 Output Total 550 400 Balance 50 -100 Intake, Oral 600 300 Output, Urine 550 400 Telemetry: sinus tachycardia in low 100's. At ~0002, SVT with rate from 170s- 190s, sustained for 5 minutes. Frequent PVCs and PACs Gen: A&O x3, anxious HEENT: atraumatic, moist mucosa CV: tachycardic, normal S1, S2; no murmurs Pulmonary: CTA with normal air movement GI: abdomen distended, soft. tender to light palpation. Palpable mass in lower abdomen. Bowel sounds present : price in place with cloudy, pink-tinged urine Extremities: 2+ pitting edema to knees bilaterally Results Results: Laboratory Tests 12/28/16 0330: Anion Gap 7, Estimated GFR > 60, BUN/Creatinine Ratio 20.0, Magnesium 1.5 L, APTT 87 H, CBC w Diff NO MAN DIFF REQ, RBC 3.30 L, MCV 84.1, MCH 27.0, RDW 18.4 H, MPV 7.1 L, Gran % 73.6, Lymphocytes % 14.0 L, Monocytes % 8.5, Eosinophils % 1.1, Basophils % 2.8 H, Absolute Granulocytes 7.8 H, Absolute Lymphocytes 1.5, Absolute Monocytes 0.9 H, Absolute Eosinophils 0.1, Absolute Basophils 0.3, PUBS MCHC 32.1 L 12/27/16 1630: APTT 39 H Microbiology 12/26 2054 STOOL: Clostridium difficile Toxin A & B - NEGATIVE CT abdomen/pelvis with IV and oral contrast + concurrent cystogram: IMPRESSION: 1. A large pelvic mass is redemonstrated. This is circumscribed, of soft tissue density and shows central gas, suggesting communication with bowel. Differential possibilities include but are not limited to: Giant mucocele of the appendix, gastrointestinal stromal tumor and sarcoma. 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 Recommend General Surgery evaluation and management. 2. There are 3 subcentimeter low-attenuation foci within the right hepatic lobe, likely cysts or hemangiomas. These could be more fully evaluated with ultrasound or MRI, if clinically indicated. 3. There is a large hiatus hernia. 4. There is constipation without reinaldo obstruction, likely related to pelvic mass effect. 5. There is generalized anasarca. 6. There are small fat-containing umbilical and right inguinal hernias. 7. There is prostatomegaly. 8. There is a moderate L4 compression fracture redemonstrated. 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 Plan: Abdominal/Pelvic Mass, Suspected Malignancy: CT scan yesterday showing 14.1 cm x 16.9 cm x 15.6 cm mass, displacement of the urinary bladder. Suggestive of malignant appendiceal mucinous neoplasm. CEA: 19.4. Could also be GIST or sarcoma. * Heme/Onc, Surgery, Urology following * To OR today for tumor resection, possible colon resection * Bowel prep completed and tolerated * IV heparin held at 0600 * urine cytology pending * Further workup/treatment pending pathology results and surgical findings Acute Blood Loss Anemia: H&H this AM was 8.9/.7. Two units pRBCs transfused in anticipation of surgery. * Heme/Onc following * monitor H&H post-op * transfuse as necessary to keep Hgb >7 * Iron sulfate 325mg TID once stable per Heme/Onc History of PE: Was on warfarin as outpatient, switched to IV heparin in anticipation of surgical intervention. Heparin held at 0600 for surgery. * Resume IV heparin when cleared by surgery * monitor aPTT daily * ALPs for DVT prophylaxis in meantime UTI: urine cultures growing Providencia species. Sensitive to ceftriaxone, which patient was already on. * Urology following * Continue ceftriaxone 1000 mg IV daily Tachycardia: patient has been tachycardic for much of hospital stay, originally thought to be d/t anemia. Developed ?SVT vs paroxysmal atrial fibrillation for ~ 5 minutes early this AM. Echo on 12/25 showed normal EF, mild aortic sclerosis, minimal mitral insufficiency, mild LAE, septal thickening. 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 EEG on this admission was negative for seizure activity. * Continue Dilantin 200mg BID Code Status: Full Diet: NPO DVT prophylaxis: ALPs, resume heparin post op KAROLINA CHONG MD 12/31/16 1150: Attending MD Review Statement Attending Sign Off Attending Cosign Statement: I have: examined this patient, agreed w/resident/PA/[employer]. Other Findings: As above.
--- NOTE | 2016-12-28 09:23 | PN- General Surgery ---
Subjective Subjective: tolerated bowel prep but bloated now. 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 plan for surgery today, resection +/- bowel resection pending operative finding. consented.
[2016-12-28 12:45] VITALS: BP 128/78
--- NOTE | 2016-12-28 15:46 | NUR ---
1540 - PATIENT GOING DOWN TO OR AT THIS TIME FOR PROCEDURE. VSS.
--- NOTE | 2016-12-28 17:15 | Cons- Cardiology ---
General Information and HPI Consulting Request Date of Consult: 12/28/16 Requested By: MANPREET ROBLERO MD History of Present Illness: Mr. Carrion is a 61 year old male with no prior cardiac history. He does carry a history of seizures and has a malignant abdominal mass that requires surgical therapy. This patient has noted a non-exertional right sided chest discomfort that he feels was related to a fall. There is no consistent exertional chest discomfort. He does have episodes of lightheadedness with loss of consciousness but these episodes appear to be related to seizures. He does have occasional palpitations prior to his falls although this is not a consistent presentation. Otherwise this patient is mild to moderately acive although higher levels of activity will cause shortness of breath. He does have chronic leg edema which has become worse over time. His abdominal swelling is also becoming worse. To review the patient's prior history, he has been known to have and abdominal mass for about two years which is followed by contracted as a child. Allergies/Medications Allergies: Coded Allergies: NO KNOWN ALLERGIES (01/11/14) Home Med List: Multivitamin (Daily Multiple Vitamin) 1 EACH TABLET 1 TAB PO DAILY SUPPLEMENT (Reported) Phenytoin Sodium Extended 100 MG CAPSULE 2 CAP PO BID SEIZURES (Reported) Warfarin Sodium 7.5 MG TABLET 0.5-1 TAB PO AD BLOOD THINNER (Reported) Past History Travel History Traveled to [place] past 21 day No Medical History Blood Transfusion Hx: No Neurological: seizure, childhood encephalitis EENT: NONE Cardiovascular: syncope (possible unwitnessed) Respiratory: pulmonary embolism (06/2014) Gastrointestinal: GERD (mild), hiatal hernia Hepatic: NONE Renal: benign prost hyperplasia Musculoskeletal: osteopenia; TL compression fractures Psychiatric: NONE Endocrine: osteopenia Blood Disorders: anemia, PE (06/2014) Cancer(s): NONE 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 MOTHER, , Age 50-60; Cause: Cancer of unknown origin. BROTHER ([employer]). Relation not specified for: *No pertinent family history Psychosocial History Where Do You Live? Home Who Do You Live With? spouse (upstairs from his brother), alone Services at Home: None Primary Language: Lebanese Smoking Status: Light Tobacco Smoker ETOH Use: denies use Illicit Drug Use: denies illicit drug use Living Will? no Power of Waxer Tender/HCP? no Other Social History: Single. No children. Light cigarette smoker. No EtOH or illicit drugs. Lives alone upstairs from his brother. Unemployed, on disability. Functional Ability ADLs Independent: dressing, eating, toileting, bathing. Ambulation: independent IADLs Independent: shopping, housework, finances, food prep, telephone, transportation , medication admin. Employment History Employment: Disability ECHO Results (as available) Date of last Echo 07/06/14 Exam & Diagnostic Data Vital Signs and I&O Vital Signs Date Time Temp Pulse Resp B/P B/P Pulse O2 O2 Flow FiO2 Mean Ox Delivery Rate 12/28 821 98.6 105 18 126/84 95 Room Air 12/27 2225 98.9 106 20 112/80 96 Room Air 12/27 1719 98.6 100 18 126/72 97 Intake & Output 12/28 1600 12/28 0800 12/28 0000 12/27 1600 12/27 0800 12/27 0000 Intake Total 600 300 720 436 608 Output Total 550 400 600 Balance 50 -100 120 436 608 Intake, IV 316 208 Intake, Oral 600 300 720 120 400 Number 1 2 3 Bowel Movements Output, Urine 550 400 600 Patient 189 lb Weight Weight Standing Scale Measurement Method Physical Exam: General: WD/ overweigth male in NAD; alert and oriented x 3 HEENT: NC/ AT, PERRL, EOMI Neck: no JVD, no carotid bruit Heart: RRR w/o murmur Lungs: clear bilaterally Abdomen: soft, NT, distended, +ve bowel sounds Extremities: 2+ bilateral leg edema Assessment/Plan Assessment/Plan * This patient has edema that is likely related to a malignancy rather than decompensated CHF. His EF is normal and he has normal pulmonary pressures. In addition, this patient is active at his baseline without symptoms of ischemia. His ECG does not show any ischemic changes. He is at a reasonable risk for surgery without additional cardiac workup. Continue to monitor on telemetry to assess for any dysrhythmia that may be associated with his lightheadedness. I think it is most likely that his falls and LOC are related to seizures however. Replete the patient's potassium to 4-4.5. Consult Acknowledgment - Thank you for your consult request.
--- NOTE | 2016-12-28 20:01 | Operative Report ---
Operative/Inv Procedure Report Surgery Date: 12/28/16 Name of Procedure: Cystoscopy and unsuccessful attempt at bilateral ureteral stent insertion Pre-Operative Diagnosis: pelvic mass Post-Operative Diagnosis: pelvic mass Estimated Blood Loss: less than 50ml Surgeon/Prestidigitator: CASTILLO Jones MD, WILLIAM Anesthesia: general endotracheal tube Drains: 20 fr coude price Specimens: none Complications: unable to insert ureteral stents Condition: Stable Operative Indication: Large pelvic mass Operative/Procedure Note Note: The patient was taken to the OR and identified. He was placed in the supine position on the OR table and a time out executed appropriately. General anesthesia was induced via an ETT. He was placed in the dorsal lithotomy position and prepped and draped in the usual fashion for cystoscopy. A surgical pause was executed appropriately. The 22 fr cystoscope was placed into the bladder under direct vision using the 30 degree lens. The anterior urethra was normal. The distal prostate was normal. To pass the scope into the bladder it had to be angled in an almost vertical oriention and the bladder floor and trigone were being displaced anteriorly by the pelvic mass. Due to this, neither ureteral orifice could be identified. Also on the floor of the bladder there was one area with a papillary mass, about 1-2 cm in size. There was also another area of abnormal tissue on the bladder floor which was less papillary. Since neither ureteral orifice could be identified, the procedure was terminated and a 20 fr coude catheter placed. Findings: Markedly elevated bladder floor due to pelvic mass Abnormal tissue on floor of bladder Unable to identify either ureteral orifice
--- NOTE | 2016-12-28 20:37 | Operative Report ---
Operative/Inv Procedure Report Surgery Date: 12/28/16 Name of Procedure: Exploratory laparotomy with right hemicolectomy Pre-Operative Diagnosis: Mucinous pelvic neoplasm Post-Operative Diagnosis: Same Estimated Blood Loss: 50ml to 100ml Surgeon/Stake Setter: Justin Proctor M.D./Jun Contreras MD Anesthesia: general endotracheal tube Specimens: Right colon and ileum Operative Indication: 61-year-old male who presents with lower extremity edema. Workup shows large pelvic mass abutting the bladder and loops of colon. CT scan shows no evidence of fistula formation. 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 It has now progressed to 16 cm. Plan will be for resection. Operative/Procedure Note Note: After consent is brought to the operative laid supine. Gen. anesthesia was obtained and he was placed in lithotomy position. Preoperative cystoscopy was performed and stents could not be placed due to the distortion of his bladder. The orifices could not be seen. I then performed rigid proctoscopy and there is no evidence of rectal invasion although the prep was poor. His abdomen was then prepped and draped. Midline incision made sharply we came down to subcutaneous tissues tissues with cautery. The fascia was incised sharply and carefully opened. Bookwalter retraction system was placed. The abdomen was explored. A large pelvic tumor was seen that was densely adherent to the cecum. Posteriorly it appeared to be free. There was rectum that was free up into the pelvic brim. Small bowel was normal. To help mobilize the mass we elected to perform en bloc resection of the involved cecum. We created a window in the mesentery of the right colon after taking down the white line of Toldt. Mid right colon was transected with ZO stapler. The same was done for the terminal ileum. The mesenteric vessels between them were taken with the LigaSure device. We were then able to mobilize posteriorly quite a distance. The same could be done laterally. We then began or dissection anteriorly. The plane between the bladder and the tumor was difficult to identify. It appeared to be fused with multiple large vessels on the surface of the tumor and bladder. We then inflated the bladder with water to help distended and delineated the anatomy. We still unable to created anatomically identifiable plane between the tumor and the bladder. Completely fused and the feeling was that there was need for at least partial resection of the bladder. It may have even involve the trigone. Intraoperative consultation with urology was performed. It was his impression that the operation would be best suited at a facility capable of performing such a radical resection of his bladder. Therefore we aborted resection. There is ischemic segment of colon stuck to the posterior wall of the tumor that could not be left in place. It was resected close to the wall of the tumor with ZO stapler. A [id number] stapled anastomosis of the right colon to ileum was then performed with the ZO stapler. Peritoneal cavity was irrigated with normal saline. Fascia was closed with running 0 Maxon suture. Skin was closed with everardo. Sterile dressings applied. Sponge and needle counts are correct Findings: Large pelvic tumor fused to bladder prohibiting resection.
[2016-12-28 22:15] VITALS: BP 132/78
--- NOTE | 2016-12-28 23:49 | PN- General Surgery ---
Subjective Subjective: POSTOP CHECK +abd pain but controlled with meds, no n/v, +flatus, no cp/sob, sleepy Objective Vital Signs and I&Os Vital Signs Date Time Temp Pulse Resp B/P B/P Pulse O2 O2 Flow FiO2 Mean Ox Delivery Rate 12/28 821 98.6 105 18 126/84 95 Room Air Intake & Output 12/28 0800 12/28 0000 12/27 1600 12/27 0800 12/27 0000 Intake Total 600 600 300 720 436 608 Output Total 200 550 400 600 Balance 400 50 -100 120 436 608 Intake, IV 600 316 208 Intake, Oral 600 300 720 120 400 Number 1 2 3 Bowel Movements Output, Urine 200 550 400 600 Patient 189 lb Weight Weight Standing Scale Measurement Method Physical Exam: gen: nad card: s1s2 rrr pulm: ctab abd: ttp, softly dist, palp mass, dressing cdi, quiet bs ext: +edema bl le, calves soft nt bl Assessment/Plan Assessment/Plan A: POD0 sp ex lap, r colectomy, aborted resection of pelvic mass, s/p cystoscopy and unsucessful attempt at urethral stenting, with postop pain, and clots in price with low drainage, otherwise stable. P: ngt to lcws, npo, ivf, iv meds irrigate price veto sq ?plan to restart hep gtt vs other anticoag? plan per attending -?further surgical care
[2016-12-29 02:00] VITALS: BP 128/78
--- NOTE | 2016-12-29 07:14 | PN- Housestaff ---
See Addendum Subjective Follow-up For: Pelvic mass suspicious for malignancy Acute blood loss anemia Tachycardia Bilateral lower extremity edema Tele-Events Since Last Visit: Sinus rhythm HR 97-117 PVCs Subjective: Patient went to the OR for exploratory laparotomy yesterday. Pelvic tumor, which was felt to be of appendiceal origin, was found to be adhering to the cecum, rectum and bladder. Right hemicolectomy was performed with resection of the ischemic portions of the ileum and cecum. Resection of the mass was aborted due to inability perform radical resection of the bladder, which was felt to be best performed at a higher care facility well-equipped for such a complex procedure. Ureteral stents could not be placed due to displacement of the bladder and a coude catheter was inserted. Patient was seen and examined this morning. He endorses mild abdominal discomfort and intermittent nausea. He had a small mucous bowel movement last night. He denies chest discomfort and shortness of breath. Patient had low urine output today. Review of Systems Constitutional: Reports: see HPI. Objective Last 24 Hrs of Vital Signs/I&O Vital Signs Date Time Temp Pulse Resp B/P B/P Pulse O2 O2 Flow FiO2 Mean Ox Delivery Rate 12/29 1530 99.2 126 18 118/78 95 Nasal 1.0L Cannula 12/29 1115 Nasal 2.0L Cannula 12/29 0800 96 Nasal 2.0L Cannula 12/29 0800 99.4 124 18 132/80 96 Nasal 2.0L Cannula 12/29 0200 98.2 107 18 128/78 99 Nasal Cannula / 0000 96 Nasal 3.0L Cannula 12/28 2215 97.5 111 20 132/78 98 Nasal 2.0L Cannula Intake & Output 12/29 1600 05/02 0800 05/02 0000 Intake Total 1054 1150 3700 Output Total 250 425 275 Balance 363 285 0693 Intake, IV 1054 1150 3700 Intake, Oral 0 0 Number 1 Bowel Movements Output, 100 50 Gastric Drainage Output, Urine 150 375 275 Physical Exam General Appearance: Alert, Oriented X3, No Acute Distress HEENT: Atraumatic, Mucous Membr. moist/pink Neck: Supple Cardiovascular: Normal S1, Normal S2, No Murmurs, Gallops, Rubs, Tachycardic Lungs: Clear to Auscultation Abdomen: Soft, Tender to Palpation, Dressing in Place, Positive Bowel Sounds Extremities: Bilateral Lower Extremities with 3+ Pitting Edema Other Physical Findings: Sanchez in Place with [place] Urine Current Medications: Current Medications Sig/Ghulam Start time Last Medication Dose Route Stop Time Status Admin Acetaminophen 325 MG Q6P PRN 12/26 1230 DC PO Ampicillin Sodium/ 1,500 MG Q6 12/28 2359 DC 12/29 Sulbactam Sodium IV 12/29 06 0658 Sodium Chloride 100 ML Benzocaine/Menthol 1 ERICK Q2P PRN 12/29 1330 AC PO Ceftriaxone Sodium 1,000 MG 22012/25 2200 AC 12/29 IV 0015 Dextrose/Sodium 1,000 ML Q8H 12/28 2145 AC 12/29 Chloride IV 1343 Ferrous Sulfate 325 MG TID 12/29 1000 CAN PO Furosemide 20 MG DAILY 12/29 1609 AC 12/29 IV 1804 Heparin Sodium 25,000 UNIT Q24H 12/29 1615 AC 12/29 (Porcine) IV 1803 Sodium Chloride 500 ML Heparin Sodium 5,000 UNIT Q8 12/28 220 AC 12/29 (Porcine) SC 1343 Hydromorphone HCl 0.4 MG Q4P PRN 12/28 214 AC IV Hydromorphone HCl 0.6 MG Q4P PRN 12/28 2145 AC 12/29 IV 1832 Hydromorphone HCl 1 MG Q4P PRN 12/28 214 AC IV Magnesium Oxide 400 MG BID 12/29 1512 DC PO Magnesium Sulfate 1 GM Q2H 12/29 1600 AC 12/29 Dextrose/Water 100 ML IV 12/29 195 1803 Meperidine HCl 50 MG .STK-MED ONE 12/29 2047 DC IM 12/28 204 Multivitamins 1 TAB DAILY 12/25 1000 DC Therapeutic PO Ondansetron HCl 4 MG Q6P PRN 12/28 2145 AC IV Pantoprazole Sodium 40 MG DAILY 12/28 2230 AC 12/29 IV 0924 Patient Medication 1 ED .STK-MED ONE 12/29 1340 DC Teaching ED 12/29 1341 Phenytoin 200 MG Q12H 12/29 1200 AC 12/29 Sodium Chloride 50 ML IV 1230 Phenytoin 200 MG BID 12/28 2359 DC 12/29 Sodium Chloride 50 ML IV 0015 Phenytoin 200 MG BID 12/28 2200 DC PO Phenytoin 200 MG BID 04/28 0011 DC 05/ PO 0802 Potassium Chloride 20 MEQ ONCE ONE 12/29 1615 DC 05/ PO 12/29 1616 1936 Potassium Chloride 40 MEQ ONCE ONE 12/29 1600 DC 05/ PO 12/29 1601 1936 Potassium Chloride 40 MEQ ONCE ONE 12/29 1515 CAN PO 12/29 1516 Sodium Chloride 1,000 ML Q13H 12/27 1945 DC 05/ IV 12/28 2144 0859 Last 24 Hrs of Lab/Yuri Results Last 24 Hrs of Labs/Mics: Laboratory Tests 12/29/16 0757: Anion Gap 11, Estimated GFR > 60, BUN/Creatinine Ratio 16.3, Magnesium 1.4 L, CBC w Diff MAN DIFF ORDERED, RBC 4.52 L, MCV 84.2, MCH 27.5, RDW 17.1 H, MPV 6.6 L, Gran % 94.4 H, Lymphocytes % 3.1 L, Monocytes % 2.5, Eosinophils % 0, Basophils % 0 L, Absolute Granulocytes 16.7 H, Segmented Neutrophils 64, Band Neutrophils 24 H, Absolute Lymphocytes 0.5 L, Lymphocytes 5 L, Monocytes 4, Absolute Monocytes 0.4, Absolute Eosinophils 0, Absolute Basophils 0, Metamyelocytes 2 H, Myelocytes 1 H, Platelet Estimate ADEQUATE, Poikilocytosis 1+, Anisocytosis 1+, PUBS MCHC 32.6 L Assessment/Plan Assessment: 61 y/o M with PMHx of seizure disorder on Dilantin, PE in 2013 on Coumadin and BPH who is admitted with symptomatic anemia, bilateral lower extremity edema and large pelvic mass extending into the abdomen. #Mucinous pelvic neoplasm: Underwent exploratory laparotomy yesterday, revealing large pelvic tumor felt to be a mucin-secreting appendiceal neoplasm, adherent to the cecum and bladder, s/p right hemicolectomy for transection of ischemic bowel. Tumor resection was aborted due to inability to perform radical resection of bladder. Although it was felt by Dr. Proctor that patient should be transferred to [facility] care facility where cystectomy in conjunction with rectal resection could be performed, colorectal surgeon at [facility] recommended that patient should stay inpatient at [facility] and have outpatient workup for potential neoadjuvant chemotherapy and radiation therapy. * Oncology and general surgery following. Appreciate their recs. * Await ongoing discussions between Dr. Proctor and colorectal surgeon at [facility] regarding transfer vs. stay at [facility] for recovery. * Pathology of resected sample pending. * Continue NPO and NGT. * Start IV heparin drip in view of history of PE on warfarin. * Zofran 4 mg IV Q6H PRN for nausea. * Dilaudid IV for pain. #Low UOP: Urine output has been low following surgery. Tumor was noted to be infiltrating the bladder. Ureteral stents could not be placed due to displacement of the bladder. Patient has coude cath in. * Urology consulted. Appreciate their recs. * Keep coude cath in place for now. #Bilateral lower extremity edema: Likely secondary to underlying malignancy rather than decompensated CHF. ECHO with normal LVEF, no wall motion abnormalities and no evidence of pulmonary hypertension. * Cardiology following. appreciate their recs. * Start Lasix 20 mg IV daily. #UTI: UCx growing >100,000 colonies/ml of Provid[place], sensitive to ceftriaxone and persistent mild dysuria. Hematuria likely secondary to UTI. * Continue ceftriaxone 1 g IV daily. #Anemia: Iron studies consistent with combination of iron deficiency anemia and anemia of chronic inflammation. S/p 5 units of pRBCs this admission. H/H 12.4/38 today. * Continue to monitor H/H and transfuse as needed. * EGD/colonoscopy to be performed as outpatient for evaluation of iron deficiency anemia and rectal bleeding. * Follow up with hematology as outpatient. * Iron sulfate 325 mg PO TID started. #Loss of consciousness: Most likely represent complex partial seizures, rather than syncope. EEG normal. * Continue telemetry to monitor for arrhythmias that could be associated with lightheadedness. * Continue prior to admission phenytoin 200 mg PO BID. Diet: NPO Fluids: D5NS @ 125 cc/hr Lytes: Replete to K >4 and Mg >2 DVT PPx: IV heparin and ALPs CODE: FULL Problem List: 1. Pelvic neoplasm 2. Bilateral lower extremity edema 3. Anemia of chronic disease 4. Iron deficiency anemia 5. Acute blood loss anemia 6. Hematuria 7. Seizure 8. Tachycardia Pain Ratin Pain Location: Abdomen Pain Goal: Pain 4 or less Pain Plan: Dilaudid 1 mg IV Q4H PRN for severe pain (scale 7-10) Dilaudid 0.6 mg IV Q4H PRN for moderate pain (scale 4-6) Dilaudid 0.4 mg IV Q4H PRN for mild pain (scale 1-3) Tomorrow's Labs & Rationales: CBC to monitor H/H in the setting of anemia and WBC in the setting of leukocytosis BMP and Mg to monitor lytes and kidney function in the setting of hypokalemia and hypomagnesemia
--- NOTE | 2016-12-29 07:22 | PN- Urology ---
Surgical Brief Attending Note Brief Attending Note: Above noted. Mass not resected as it was inseparable from bladder, ? invasion. Not clear that partial cystectomy possible. May require total cystectomy or extensive partial cystectomy with complex reconstruction. Probable invasion of bladder by mass Currently price with light pink urine Plan: Keep price in place Abx for positive urine C&S Agree with transfer/admission to facility where combined surgical and urology procedure could be considered with partial/total resection of bladder. Bladder is abnormal of cystoscopy and could indicate infiltration of mass into bladder
--- NOTE | 2016-12-29 07:30 | PN- General Surgery ---
See Addendum Subjective Subjective: Patient admitted to an episode of increased abdominal pain overnight that has improved this morning. Admitted to small episode of watery emesis yesterday evening, no further episodes since. Admits to mild lower abdominal pain this morning that is controlled. Denies any nausea, emesis, fevers, chills, chest pain, or SOB. Patient denies passing flatus. Per RN he had a small mucous bowel movement overnight. Review of Systems Constitutional: Denies: chills, diaphoresis, fever, weakness. Cardiovascular: Denies: chest pain, palpitations. Respiratory: Denies: cough, short of breath. Gastrointestinal: Reports: abdominal pain (mild). Denies: constipation, diarrhea, bowel incontinence, nausea, vomiting. Objective Vital Signs and I&Os Vital Signs Date Time Temp Pulse Resp B/P B/P Pulse O2 O2 Flow FiO2 Mean Ox Delivery Rate 12/29 0200 98.2 107 18 128/78 99 Nasal Cannula 12/29 0000 96 Nasal 3.0L Cannula 12/28 1245 96.5 89 24 128/78 98 Nasal 2.0L Cannula 12/28 0822 98.6 105 18 126/84 95 Room Air Intake & Output 12/29 0800 12/29 0000 12/28 1600 12/28 0800 12/28 0000 12/27 1600 Intake Total 3700 600 600 300 720 Output Total 275 200 550 400 600 Balance 3425 400 50 -100 120 Intake, IV 3700 600 Intake, Oral 0 600 300 720 Number 1 Bowel Movements Output, Urine 275 200 550 400 600 Physical Exam: General: Lying in bed in NAD HEENT: NGT in place with 100cc drainage since surgery Cardiac: RRR Pulmonary: CTAB Abdominal: Midline dressing with minimal serosaguinous drainage noted (outlined and marked). Minimal hypoactive BS. Softly distended, mild to moderate incisional tenderness to palpation. No rebound or guarding. Non peritoneal. Price in place draining light pink urine. LE: 2+ edema Results Last 48 Hours of Labs: Laboratory Tests 12/28 12/28 12/27 1800 0330 1630 Chemistry Sodium (137 - 145 mmol/L) 134 L Potassium (3.5 - 5.1 mmol/L) 3.3 L Chloride (98 - 107 mmol/L) 100 Carbon Dioxide (22 - 30 mmol/L) 27 Anion Gap (5 - 16) 7 BUN (9 - 20 mg/dL) 16 Creatinine (0.7 - 1.2 mg/dL) 0.8 Estimated GFR (>60 ml/min) > 60 BUN/Creatinine Ratio (7 - 25 %) 20.0 Magnesium (1.6 - 2.3 mg/dL) 1.5 L Coagulation APTT (25 - 37 SEC) 87 H 39 H Hematology CBC w Diff Cancelled NO MAN DIFF REQ WBC (4.8 - 10.8 /CUMM) Cancelled 10.6 RBC (4.70 - 6.10 /CUMM) Cancelled 3.30 L Hgb (14.0 - 18.0 G/DL) Cancelled 8.9 L Hct (42 - 52 %) Cancelled 27.7 L MCV (80.0 - 94.0 FL) Cancelled 84.1 MCH (27.0 - 31.0 PG) Cancelled 27.0 RDW (11.5 - 14.5 %) Cancelled 18.4 H Plt Count (130 - 400 /CUMM) Cancelled 415 H MPV (7.4 - 10.4 FL) Cancelled 7.1 L Gran % (42.2 - 75.2 %) 73.6 Lymphocytes % (20.5 - 51.1 %) 14.0 L Monocytes % (1.7 - 9.3 %) 8.5 Eosinophils % (0 - 5 %) 1.1 Basophils % (0.0 - 2.0 %) 2.8 H Absolute Granulocytes (1.4 - 6.5 /CUMM) 7.8 H Absolute Lymphocytes (1.2 - 3.4 /CUMM) 1.5 Absolute Monocytes (0.10 - 0.60 /CUMM) 0.9 H Absolute Eosinophils (0.0 - 0.7 /CUMM) 0.1 Absolute Basophils (0.0 - 0.2 /CUMM) 0.3 PUBS MCHC (33.0 - 37.0 G/DL) Cancelled 32.1 L 30 0850 Coagulation PT (9.4 - 12.5 SEC) 13.0 H INR (0.90 - 1.17) 1.24 H APTT (25 - 37 SEC) 39 H Hematology CBC w Diff NO MAN DIFF REQ WBC (4.8 - 10.8 /CUMM) 11.3 H RBC (4.70 - 6.10 /CUMM) 3.06 L Hgb (14.0 - 18.0 G/DL) 8.2 L Hct (42 - 52 %) 25.4 L MCV (80.0 - 94.0 FL) 83.0 MCH (27.0 - 31.0 PG) 26.8 L RDW (11.5 - 14.5 %) 18.2 H Plt Count (130 - 400 /CUMM) 438 H MPV (7.4 - 10.4 FL) 7.2 L Gran % (42.2 - 75.2 %) 78.9 H Lymphocytes % (20.5 - 51.1 %) 9.6 L Monocytes % (1.7 - 9.3 %) 10.3 H Eosinophils % (0 - 5 %) 0.2 Basophils % (0.0 - 2.0 %) 1.0 Absolute Granulocytes (1.4 - 6.5 /CUMM) 8.9 H Absolute Lymphocytes (1.2 - 3.4 /CUMM) 1.1 L Absolute Monocytes (0.10 - 0.60 /CUMM) 1.2 H Absolute Eosinophils (0.0 - 0.7 /CUMM) 0 Absolute Basophils (0.0 - 0.2 /CUMM) 0.1 PUBS MCHC (33.0 - 37.0 G/DL) 32.3 L Assessment/Plan Assessment/Plan 61 y/o male POD # 1 s/p exploratory laparotomy with right hemicolectomy, aborted pelvic tumor excision - mass inseperable from bladder suggesting probable invasion of bladder by mass. - Continue NPO/NGT - Pain control and antiemetics prn - Seen by Urology this am, keep price in place, recommends transfer - Continue abx for + urine culture - Recommend transfer/admission to higher care facility secondary to need for possible total cystectomy versus extensive partil cystectomy which can't be performed at this facility - will d/w Dr. Proctor Core Measures/Miscellaneous Venous Thromboembolism VTE Risk Factors: Age > 40, Surgery VTE Contraindications: No Contraindications VTE Diagnosis: No VTE Type: NONE VTE Confirmed by (Test): NONE Beta Tremaine Is Beta Tremaine a Home Med? No Antibiotics Is Patient on Antibiotics? Yes
[2016-12-29 08:00] VITALS: BP 132/80
--- NOTE | 2016-12-29 08:34 | PN- Student ---
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 Yesterday the patient was taken to the OR for an exploratory laparotomy and tumor resection. Upon entering the abdomen, it was discovered that the tumor had adhered to both the cecum and the bladder. Right hemicolectomy and terminal ileum resection were performed. Cystoscopy was difficult, and ureteral stents could not be placed d/t displaced anatomy. Resection from the bladder was not possible d/t multiple large vessel communications. Therefore, tumor resection was aborted. It is recommended that the patient be transferred for a complex tumor/bladder resection. There were no overnight events. This morning the patient feels "crummy." He states he has abdominal pain that he currently rates as 3/10. He has been having intermittent nausea, but denies vomiting. NGT is in place, which he finds uncomfortable. He denies passing flatus or having a BM yet. He denies headache, dizziness, palpitations, chest pain, and shortness of breath. Current Medications Sig/Ghulam Start time Last Medication Dose Route Stop Time Status Admin Acetaminophen 1,000 MG .STK-MED ONE 12/28 1548 DC IV 12/28 1549 Acetaminophen 325 MG Q6P PRN 12/26 1230 DC PO Ampicillin Sodium/ 1,500 MG Q6 12/28 2359 DC 12/29 Sulbactam Sodium IV 12/29 0629 0658 Sodium Chloride 100 ML Ceftriaxone Sodium 1,000 MG 12/25 2200 AC 12/29 IV 0015 Dextrose/Sodium 1,000 ML Q8H 12/28 214 AC 12/29 Chloride IV 0010 Fentanyl Citrate 250 MCG .STK-MED ONE 12/28 1547 DC IM 12/28 1548 Ferrous Sulfate 325 MG TID 12/29 1000 CAN PO Heparin Sodium 5,000 UNIT Q8 12/28 2200 AC 12/29 (Porcine) SC 0657 Hydromorphone HCl 0.4 MG Q4P PRN 12/28 2145 AC IV Hydromorphone HCl 0.6 MG Q4P PRN 12/28 2145 AC 12/29 IV 0821 Hydromorphone HCl 1 MG Q4P PRN 12/28 2144 AC IV Magnesium Oxide 400 MG Q2 12/28 1600 DC PO 12/28 180 Meperidine HCl 50 MG .STK-MED ONE 12/29 2047 DC IM 12/28 204 Midazolam HCl 2 MG .STK-MED ONE 12/28 1547 DC IM 12/28 1548 Multivitamins 1 TAB DAILY 12/25 1000 DC Therapeutic PO Ondansetron HCl 4 MG Q6P PRN 12/28 2144 AC IV Pantoprazole Sodium 40 MG DAILY 12/28 223 AC 12/29 IV 0015 Phenytoin 200 MG BID 12/28 2359 AC 12/29 Sodium Chloride 50 ML IV 0015 Phenytoin 200 MG BID 12/28 2199 DC PO Phenytoin 200 MG BID 12/25 0011 DC 12/28 PO 0802 Potassium Chloride 40 MEQ ONCE ONE 12/28 1200 DC 12/28 PO 12/28 1201 1207 Potassium Chloride 10 MEQ Q1H 12/28 1000 DC 12/28 IV 12/28 1101 1207 Potassium Chloride 40 MEQ ONCE ONE 12/28 0900 DC 12/28 PO 12/28 0901 0859 Sodium Chloride 1,000 ML Q13H 12/27 1945 DC 12/28 IV 12/28 2144 0859 Objective Objective: Vital Signs Date Time Temp Pulse Resp B/P B/P Pulse O2 O2 Flow FiO2 Mean Ox Delivery Rate 12/29 0200 98.2 107 18 128/78 99 Nasal Cannula 12/29 0000 96 Nasal 3.0L Cannula 12/28 2215 97.5 111 20 132/78 98 Nasal 2.0L Cannula 12/28 1245 96.5 89 24 128/78 98 Nasal 2.0L Cannula Intake & Output 12/29 1600 12/29 0800 12/29 0000 Intake Total 1150 3700 Output Total 425 275 Balance 725 3425 Intake, IV 1150 3700 Intake, Oral 0 0 Number 1 Bowel Movements Output, 50 Gastric Drainage Output, Urine 375 275 Telemetry Overnight: NSR to sinus tachycardia, rate 97 - 117 bpm. No events General: A&O x3, anxious. Mildly uncomfortable HEENT: dry mucosa. NGT in place with minimal dark, possibly blood tinged drainage CV: RRR, no murmurs Pulmonary: CTA bilaterally with normal air movement GI: abdomen soft and distended, tender to light palpation. Mass palpable in lower abdomen. Dressing CDI. 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 Plan: Abdominal Mass, Suspected Malignancy: Appeared mucinous in nature on exploration. Was adherent to cecum and posterior bladder wall, with copious mucoid drainage from urinary catheter intraop. Possible encompassment of rectum. Resection attempt was aborted. Cytology and Pathology on right hemicolectomy specimen pending. * GI, Urology, Heme/Onc, General surgery following * Multidisciplinary recommendations for transfer to [place] for definitive surgical management vs. chemo/radiation before further surgery * Complete cystectomy possible * Continue NGT, bowel rest. Chloraseptic spray * NPO * All meds IV Acute Blood Loss Anemia: received 4u pRBCs on 12/28/16, total 5u pRBCs on this hospital stay. H&H being monitored closely. * Heme/Onc recommendations * Continue monitoring H&H, transfuse to keep Hgb >7 * Iron sulfate 325mg TID once stable UTI: urine cultures growing Providencia, pt on Ceftriaxone. Catheter became clogged intra-op, required flushing, began draining copious mucinous material. Likely complicated d/t tumor invasion. * Continue IV ceftriaxone 1000mg daily * Monitor urinary catheter for s/s of occlusion History of PE: Outpatient warfarin being held d/t surgical interventions. IV heparin held since yesterday morning. Surgery okay'd starting HSQ. * HSQ for DVT prophylaxis until further surgical intervention complete Epilepsy 2/2 encephalitis: Managed on Dilantin 200mg BID. EEG on this admission without evidence of seizure activity. * Switch Dilantin to IV Tachycardia: tachycardic for much of hospital stay. Physiologic response to anemia vs. intermittent SVT vs. paroxysmal atrial fibrillation. * Cardiology has seen * Cardiac clearance for surgical intervention Code Status: Full Diet: NPO DVT prophylaxis: HSQ 5000u Pain Management: Dilaudid 0.4, 0.6, or 1 mg q4h prn per pain scale KAROLINA CHONG MD 12/31/16 1151: Attending MD Review Statement Attending Sign Off Attending Cosign Statement: I have: examined this patient, agreed w/resident/PA/MEDICAL INSURANCE CODER. Other Findings: As above.
[2016-12-29 09:17] LABS: ABSOLUTE BASOPHIL COUNT 0 /CUMM (0.0-0.2); ABSOLUTE EOSINOPHIL COUNT 0 /CUMM (0.0-0.7); ABSOLUTE LYMPH COUNT 0.5 /CUMM (1.2-3.4); EOSINOPHIL % 0 % (0-5); MEAN PLATELET VOLUME 6.6 FL (7.4-10.4)
[2016-12-29 09:25] LABS: ABSOLUTE GRANULOCYTE CT 16.7 /CUMM (1.4-6.5); ABSOLUTE MONOCYTE COUNT 0.4 /CUMM (0.10-0.60); BASOPHIL % 0 % (0.0-2.0); GRANULOCYTE % 94.4 % (42.2-75.2); MEAN CORPUSCULAR HGB 27.5 PG (27.0-31.0); MEAN CORPUSCULAR HGB CONC 32.6 G/DL (33.0-37.0); MEAN CORPUSCULAR VOLUME 84.2 FL (80.0-94.0); PLATELET COUNT 364 /CUMM (130-400); RBC DISTRIBUTION WIDTH 17.1 % (11.5-14.5)
[2016-12-29 09:47] LABS: RED BLOOD CELL CT 4.52 /CUMM (4.70-6.10); WHITE BLOOD CELL COUNT 17.7 /CUMM (4.8-10.8)
--- NOTE | 2016-12-29 12:35 | PN- Oncology ---
Subjective Subjective: Patient is somnolent this morning. He underwent exploratory laparotomy with right hemicolectomy yesterday. Due to the tumor adhering to the bladder, a cystecotmy was not able to be done. He has no fever or chills overnight. He denies any significant pain. Review of Systems: Limited due to mental status. Mild abdominal pain. Objective Vital Signs and I&Os Vital Signs Date Time Temp Pulse Resp B/P B/P Pulse O2 O2 Flow FiO2 Mean Ox Delivery Rate 12/29 1115 Nasal 2.0L Cannula 12/29 0800 99.4 124 18 132/80 96 Nasal 2.0L Cannula 12/29 0200 98.2 107 18 128/78 99 Nasal Cannula 12/29 0000 96 Nasal 3.0L Cannula 12/28 2215 97.5 111 20 132/78 98 Nasal 2.0L Cannula 12/28 1245 96.5 89 24 128/78 98 Nasal 2.0L Cannula Intake & Output 12/29 1600 12/29 0800 12/29 0000 12/28 1600 12/28 0800 12/28 0000 Intake Total 1150 3700 600 600 300 Output Total 425 275 200 550 400 Balance 725 3425 400 50 -100 Intake, IV 1150 3700 600 Intake, Oral 0 0 600 300 Number 1 Bowel Movements Output, 50 Gastric Drainage Output, Urine 375 275 200 550 400 Physical Exam General Appearance: no apparent distress, somnolent Ears, Nose, Throat: NG tube in place Respiratory: normal breath sounds, chest non-tender, no respiratory distress Cardiovascular: tachycardia Abdomen: dressing in place Extremities: pedal edema Reproductive: price in place with pink urine Current Medications: Current Medications Sig/Ghulam Start time Last Medication Dose Route Stop Time Status Admin Acetaminophen 1,000 MG .STK-MED ONE 12/28 1548 DC IV 12/28 1549 Acetaminophen 325 MG Q6P PRN 12/26 1230 DC PO Ampicillin Sodium/ 1,500 MG Q6 12/28 2359 DC 12/29 Sulbactam Sodium IV 12/29 06 0658 Sodium Chloride 100 ML Ceftriaxone Sodium 1,000 MG 12/25 AC 12/29 IV 0015 Dextrose/Sodium 1,000 ML Q8H 12/28 2145 AC 12/29 Chloride IV 0922 Fentanyl Citrate 250 MCG .STK-MED ONE 12/28 1547 DC IM 12/28 1548 Ferrous Sulfate 325 MG TID 12/29 1000 CAN PO Heparin Sodium 5,000 UNIT Q8 12/28 2199 AC 12/29 (Porcine) SC 0657 Hydromorphone HCl 0.4 MG Q4P PRN 12/28 2144 AC IV Hydromorphone HCl 0.6 MG Q4P PRN 12/28 214 AC 12/29 IV 0821 Hydromorphone HCl 1 MG Q4P PRN 12/28 2144 AC IV Magnesium Oxide 400 MG Q2 12/28 1600 DC PO 12/28 180 Meperidine HCl 50 MG .STK-MED ONE 12/29 2047 DC IM 12/28 204 Midazolam HCl 2 MG .STK-MED ONE 12/28 154 DC IM 12/28 154 Multivitamins 1 TAB DAILY 12/25 1000 DC Therapeutic PO Ondansetron HCl 4 MG Q6P PRN 12/28 2144 AC IV Pantoprazole Sodium 40 MG DAILY 12/28 2230 AC 12/29 IV 0924 Phenytoin 200 MG BID 12/28 235 AC 12/29 Sodium Chloride 50 ML IV 0015 Phenytoin 200 MG BID 12/28 2199 DC PO Phenytoin 200 MG BID 12/25 0011 DC 12/28 PO 0802 Sodium Chloride 1,000 ML Q13H 12/27 1945 DC 12/28 IV 12/28 2144 0859 Results Last 24 Hours of Lab Results: Laboratory Tests 12/29 12/28 0757 1800 Chemistry Sodium (137 - 145 mmol/L) 137 Potassium (3.5 - 5.1 mmol/L) 3.6 Chloride (98 - 107 mmol/L) 101 Carbon Dioxide (22 - 30 mmol/L) 25 Anion Gap (5 - 16) 11 BUN (9 - 20 mg/dL) 13 Creatinine (0.7 - 1.2 mg/dL) 0.8 Estimated GFR (>60 ml/min) > 60 BUN/Creatinine Ratio (7 - 25 %) 16.3 Magnesium (1.6 - 2.3 mg/dL) 1.4 L Hematology CBC w Diff MAN DIFF ORDERED Cancelled WBC (4.8 - 10.8 /CUMM) 17.7 H Cancelled RBC (4.70 - 6.10 /CUMM) 4.52 L Cancelled Hgb (14.0 - 18.0 G/DL) 12.4 L Cancelled Hct (42 - 52 %) 38.0 L Cancelled MCV (80.0 - 94.0 FL) 84.2 Cancelled MCH (27.0 - 31.0 PG) 27.5 Cancelled RDW (11.5 - 14.5 %) 17.1 H Cancelled Plt Count (130 - 400 /CUMM) 364 Cancelled MPV (7.4 - 10.4 FL) 6.6 L Cancelled Gran % (42.2 - 75.2 %) 94.4 H Lymphocytes % (20.5 - 51.1 %) 3.1 L Monocytes % (1.7 - 9.3 %) 2.5 Eosinophils % (0 - 5 %) 0 Basophils % (0.0 - 2.0 %) 0 L Absolute Granulocytes (1.4 - 6.5 /CUMM) 16.7 H Segmented Neutrophils (42.2 - 75.2 %) 64 Band Neutrophils (0.0 - 5.0 %) 24 H Absolute Lymphocytes (1.2 - 3.4 /CUMM) 0.5 L Lymphocytes (20.5 - 51.1 %) 5 L Monocytes (1.7 - 9.3 %) 4 Absolute Monocytes (0.10 - 0.60 /CUMM) 0.4 Absolute Eosinophils (0.0 - 0.7 /CUMM) 0 Absolute Basophils (0.0 - 0.2 /CUMM) 0 Metamyelocytes (0.0 - 1.0 %) 2 H Myelocytes (0 - 0 %) 1 H Platelet Estimate (ADEQUATE) ADEQUATE Poikilocytosis 1+ Anisocytosis 1+ PUBS MCHC (33.0 - 37.0 G/DL) 32.6 L Cancelled Assessment/Plan Assessment/Recommendations: Mr. Carrion is a 61-year-old male with history of seizure, PE, abdominal mass in 2015 who presents with symptomatic anemia. Imaging demonstrated a pelvic mass with possible communication with bowel but no definite with bladder. He was taken to OR yesterday for exploratory laparoscopy by Dr. Proctor. Per Dr. 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 Dr. Proctor did resect ischemic portion of the ileum and cecum. The mass was left intact. Dr. Proctor has recommended transfer to [facility] facility for surgical resection. [facility] was discussed but was placed on hold due to concern on whether patient would benefit from chemotherapy with radiation prior to surgery. 1. Follow up pathology on resected sample 2. May need discussion with tumor board regarding recommendations Please call [phone] with any questions. Problem List: 1. Anemia of chronic disease 2. History of pulmonary embolism 3. Rectal bleeding 4. Iron deficiency anemia 5. Pelvic mass in male
[2016-12-29 15:30] VITALS: BP 118/78
--- NOTE | 2016-12-29 15:57 | PN- Cardiology ---
Subjective Subjective: * No chest discomfort or shortness of breath. * sinus tachycardia. * partial bowel resection with plan for additional surgery to remove his abdominal mass that is adherent to his bladder. Objective Vital Signs and I&Os Vital Signs Date Time Temp Pulse Resp B/P B/P Pulse O2 O2 Flow FiO2 Mean Ox Delivery Rate 12/29 1115 Nasal 2.0L Cannula 12/29 0800 99.4 124 18 132/80 96 Nasal 2.0L Cannula 12/29 0200 98.2 107 18 128/78 99 Nasal Cannula 12/29 0000 96 Nasal 3.0L Cannula 12/28 2215 97.5 111 20 132/78 98 Nasal 2.0L Cannula Intake & Output 12/29 1600 12/29 0800 12/29 0000 12/28 1600 12/28 0800 12/28 0000 Intake Total 1150 3700 600 600 300 Output Total 425 275 200 550 400 Balance 725 3425 400 50 -100 Intake, IV 1150 3700 600 Intake, Oral 0 0 600 300 Number 1 Bowel Movements Output, 50 Gastric Drainage Output, Urine 375 275 200 550 400 Physical Exam: General: WD/ overweigth male in NAD; alert and oriented x 3 Neck: no JVD, no carotid bruit Heart: regular and tachycardic w/o murmur Lungs: clear bilaterally Abdomen: soft, tender Extremities: 3+ bilateral leg edema Assessment/Plan Assessment/Plan * This patient has edema that is likely related to a malignancy rather than decompensated CHF. His EF is normal and he has normal pulmonary pressures. In addition, this patient is active at his baseline without symptoms of ischemia. His ECG does not show any ischemic changes. He has tolerated his surgery well. Continue to monitor on telemetry to assess for any dysrhythmia that may be associated with his lightheadedness. I think it is most likely that his falls and LOC are related to seizures however. Replete the patient's potassium to 4- 4.5. * Leg swelling: Begin Lasix 20mg IV daily. Continue telemetry? Yes
--- NOTE | 2016-12-29 19:11 | PN- Urology ---
Surgical Brief Attending Note Brief Attending Note: Asked to evaluate price catheter for adequate drainage as urine output has been low. 120 cc of irrigant instilled and all of it drained passively. Not able to aspirate but all irrigant instilled does drain out. Drainage is clear with a small amount of debri. Bladder displacement by pelvic mass makes aspiration from price difficult. Leave price to gravity drainage. No need for CBI
--- NOTE | 2016-12-29 20:43 | RADIOLOGY REPORT ---
EXAMINATION: XR PORTABLE CHEST CLINICAL INFORMATION: Evaluate nasogastric tube placement. COMPARISON: CT scan of the chest 12/24/2016. TECHNIQUE: A single AP portable semiupright view the chest was obtained. FINDINGS: Lung volumes are low and there is hilar vascular crowding and bibasilar opacities that most likely represent a manifestation of subsegmental atelectasis. Grossly there is no overt consolidative disease. An endotracheal tube has been placed. Its distal tip is not visualized below the diaphragm. Due to limitations in image quality is uncertain whether this is due to technique or tube position. Ideally a repeat examination with optimization of technique factors is recommended. There is no acute osseous finding. Multiple cardiac leads overlie the chest and upper abdomen. IMPRESSION: The enteric tube is not visualized below the diaphragm. Do to limitations and image quality is uncertain whether this is due to tube position or acquisition technique. Ideally a repeat examination with optimization of technique factors is recommended.
[2016-12-30 00:56] LABS: PTT 38 SEC (25-37)
[2016-12-30 01:23] VITALS: BP 120/72
--- NOTE | 2016-12-30 01:44 | PN- General Surgery ---
Surgical Brief Attending Note Brief Attending Note: I discontinued the heparin gtt. Please ask me before restarting.
--- NOTE | 2016-12-30 03:32 | NUR ---
AT APPROXIMATELY 0300 PT CALLED FOR ASSISTANCE STATING THAT HE FEELS THE NEED TO URINATE BUT IS UNABLE TO. IT WAS EXPLAINED TO PT BY THIS RN OF THE CATHETER HE HAS IN PLACE. UPON TRYING TO IRRIGATE, NO OUTPUT TO GRAVITY WAS NOTED AND PT COMPLAINED OF DISCOMFORT AND BEGAN TO PUSH IF TRYING TO URINATE. URINE WAS EXPELLED FROM AROUND THE CATHETER AND CONTINUES TO LEAK. JOSE RAMON GAMEZ MD AT BEDSIDE TO EVALUATE. SURGICAL PA WAS NOTIFIED. PLAN IS TO MONITOR PT OVERNIGHT AND HAVE HIM SEEN BY UROLOGY.
--- NOTE | 2016-12-30 07:01 | PN- General Surgery ---
See Addendum Subjective Subjective: The patient was seen this morning postoperatively day #2. He complains of generalized soreness and significant suprapubic discomfort especially when irrigated the Sanchez catheter. He complains of intermittent nausea due to not being able to clear his secretions adequately. He has passed some flatus and had a bowel movement yesterday evening. He has no complaints of current time and denies any chest pain or difficulty breathing. Objective Vital Signs and I&Os Vital Signs Date Time Temp Pulse Resp B/P B/P Pulse O2 O2 Flow FiO2 Mean Ox Delivery Rate 12/30 0123 99.5 122 18 120/72 94 Nasal Cannula / 0000 Nasal 1.0L Cannula 12/29 1600 Nasal 1.5L Cannula 12/29 1530 99.2 126 18 118/78 95 Nasal 1.0L Cannula 12/29 1115 Nasal 2.0L Cannula 12/29 0800 96 Nasal 2.0L Cannula 12/29 0800 99.4 124 18 132/80 96 Nasal 2.0L Cannula Intake & Output 12/30 0800 / 0000 12/29 1600 12/29 0800 / 0000 / 1600 Intake Total 800 1075 1054 1150 3700 600 Output Total 240 450 250 425 275 200 Balance 560 625 772 864 2573 400 Intake, IV 800 1075 1054 1150 3700 600 Intake, Oral 0 0 0 Number 1 1 Bowel Movements Output, 90 0 100 50 Gastric Drainage Output, Urine 150 450 150 375 275 200 Patient 206 lb Weight Weight Standing Scale Measurement Method Physical Exam: Gen.: Alert and in no obvious distress Skin: Warm and dry Abdomen: Soft, mildly distended, appropriate incisional tenderness, bowel sounds positive. Surgical incision is slightly blood tinged at the superior aspect of the dressing. The patient has moderate suprapubic tenderness to palpation. Extremities: Bilateral lower extremities are warm with mild edema and no calf tenderness. Assessment/Plan Assessment/Plan Assessment: 61-year-old male status post exploratory laparotomy right colectomy and aborted attempt at pelvic mass resection postoperative day #2. The patient is making slow progression however there still remains issues with the patient's Sanchez catheter and urine output. The case was discussed with Dr. Jones who advised to get a 22 Hebrew coud catheter with irrigation to bedside and he would stop by this morning and attempt to rectify the issue. Recommendations: Clamp NG tube 4:1 and check residuals should the patient come nausea's and antrum NG tube should be via cup to suction Continue nothing by mouth and IV fluids Subcutaneous heparin is okay but no heparin drip until okay with Dr. Proctor Continue current pain regiment Out of bed and ambulate GI and DVT prophylaxis IV antibiotics Total respiratory care with incentive spirometry Continue care per primary team
--- NOTE | 2016-12-30 07:16 | PN- Housestaff ---
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 Patient seen and examined this morning. He endorses abdominal discomfort exacerbated by coughing and positional changes as well as intermittent nausea. He had a bowel movement yesterday. He is worried and stressed about his new diagnosis and would like to speak to a psychiatrist. He denies chest pain or shortness of breath. Around 9 AM patient had an episode of supraventricular tachycardia with heart rate elevated to 200s on the cafeteria monitor. He was resting comfortably in bed during episode. He denied chest pain but endorsed palpitations. Stat EKG was performed which showed no ST-T changes. Patient converted to normal sinus rhythm spontaneously within a few minutes. Review of Systems Constitutional: Reports: see HPI. Objective Last 24 Hrs of Vital Signs/I&O Vital Signs Date Time Temp Pulse Resp B/P B/P Pulse O2 O2 Flow FiO2 Mean Ox Delivery Rate 12/30 0900 99.0 113 20 126/80 94 Nasal 1.0L Cannula 12/30 0850 95 Nasal 1.0L Cannula 12/30 0123 99.5 122 18 120/72 94 Nasal Cannula 12/30 0000 Nasal 1.0L Cannula 12/29 1600 Nasal 1.5L Cannula 12/29 1530 99.2 126 18 118/78 95 Nasal 1.0L Cannula 12/29 1115 Nasal 2.0L Cannula Intake & Output 12/30 1600 /03 0800 05/03 0000 Intake Total 800 1075 Output Total 240 450 Balance 560 625 Intake, IV 800 1075 Intake, Oral 0 Number 1 Bowel Movements Output, 90 0 Gastric Drainage Output, Urine 150 450 Patient 93.44 kg Weight Weight Standing Scale Measurement Method Physical Exam General Appearance: Alert, Oriented X3, No Acute Distress HEENT: Atraumatic, Mucous Membr. moist/pink Neck: Supple Cardiovascular: Normal S1, Normal S2, No Murmurs, Gallops, Rubs, Tachycardic Lungs: Clear to Auscultation Abdomen: Soft, Tender to Palpation, Dressing in Place, Positive Bowel Sounds Extremities: Bilateral Lower Extremities with 3+ Pitting Edema Other Physical Findings: Sanchez in Place with [place] Urine Current Medications: Current Medications Sig/Ghulam Start time Last Medication Dose Route Stop Time Status Admin Adenosine 6 MG ONCE ONE 12/30 0915 CAN IV 12/30 0916 Benzocaine/Menthol 1 ERICK Q2P PRN 12/29 1330 AC PO Ceftriaxone Sodium 1,000 MG 12/25 220 AC 12/29 IV 2028 Dextrose/Sodium 1,000 ML Q8H 12/28 2145 AC 12/30 Chloride IV 0549 Furosemide 20 MG DAILY 12/29 1609 AC 12/30 IV 0950 Heparin Sodium 5,000 UNIT Q8 12/30 0600 AC 12/30 (Porcine) SC 0549 Heparin Sodium 25,000 UNIT Q24H 12/29 1615 DC 12/29 (Porcine) IV 1803 Sodium Chloride 500 ML Heparin Sodium 5,000 UNIT Q8 12/28 220 DC 12/29 (Porcine) SC 1343 Hydromorphone HCl 0.4 MG Q4P PRN 12/28 2145 AC IV Hydromorphone HCl 0.6 MG Q4P PRN 12/28 2145 AC 12/29 IV 1832 Hydromorphone HCl 1 MG Q4P PRN 12/28 2145 AC IV Magnesium Oxide 400 MG BID 12/29 1512 DC PO Magnesium Sulfate 1 GM Q2H 12/30 0930 AC 12/30 Dextrose/Water 100 ML IV 12/30 1329 0951 Magnesium Sulfate 1 GM Q2H 12/29 1600 DC 12/29 Dextrose/Water 100 ML IV 12/29 195 2023 Metoprolol Tartrate 6.25 MG BID 12/30 1015 AC PO Ondansetron HCl 4 MG Q6P PRN 12/28 2145 AC IV Pantoprazole Sodium 40 MG DAILY 12/28 2230 AC 12/30 IV 0953 Patient Medication 1 ED .STK-MED ONE 12/29 1340 DC Teaching ED 12/29 1341 Phenytoin 200 MG Q12H 12/29 1200 AC 12/30 Sodium Chloride 50 ML IV 0039 Phenytoin 200 MG BID 12/28 2359 DC 12/29 Sodium Chloride 50 ML IV 0015 Potassium Chloride 80 MEQ ONCE ONE 12/30 0930 DC 12/30 PO 12/30 0931 0950 Potassium Chloride 20 MEQ ONCE ONE 12/29 1615 DC PO 12/29 1616 Potassium Chloride 40 MEQ ONCE ONE 12/29 1600 DC PO 12/29 1601 Potassium Chloride 40 MEQ ONCE ONE 12/29 1515 CAN PO 12/29 1516 Last 24 Hrs of Lab/Yuri Results Last 24 Hrs of Labs/Mics: Laboratory Tests 12/30/16 0630: Anion Gap 9, Estimated GFR > 60, BUN/Creatinine Ratio 16.0, Magnesium 1.7, CBC w Diff MAN DIFF ORDERED, RBC 3.85 L, MCV 84.9, MCH 27.6, RDW 18.0 H, MPV 6.8 L, Gran % 91.0 H, Lymphocytes % 3.4 L, Monocytes % 5.6, Eosinophils % 0, Basophils % 0 L, Absolute Granulocytes 17.2 H, Segmented Neutrophils 74, Band Neutrophils 16 H, Absolute Lymphocytes 0.6 L, Lymphocytes 5 L, Monocytes 5, Absolute Monocytes 1.1 H, Absolute Eosinophils 0, Absolute Basophils 0, Platelet Estimate ADEQUATE, Hypochromic-Microcytic 2+, Anisocytosis 1+, PUBS MCHC 32.5 L 12/30/16 0030: APTT 38 H Orders Radiology Findings: The enteric tube is not visualized below the diaphragm. Do to limitations and image quality is uncertain whether this is due to tube position or acquisition technique. Ideally a repeat examination with optimization of technique factors is recommended. Assessment/Plan Assessment: 61 y/o M with PMHx of seizure disorder on Dilantin, PE in 2013 on Coumadin and BPH who is admitted with symptomatic anemia, bilateral lower extremity edema and large pelvic mass extending into the abdomen. 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 Right hemicolectomy was performed for transection of ischemic bowel, however tumor resection was aborted and mass was left intact due to inability to perform radical resection of bladder. Although it was recommended by Dr. Proctor that patient should be transferred to [facility] for complete surgical resection, it was placed on hold as it was felt that patient may benefit from neoadjuvant chemotherapy with or without radiation. However chemotherapy would not be as effective if tumor is low grade and indolent. It is also of concern whether patient would be able to wait 4 weeks for surgical incision to heal prior to chemotherapy. Per Dr. Jones it would be better to have the surgery in the near future given urinary symptoms with infiltration of bladder. * Oncology and general surgery following. Appreciate their recs. * Await ongoing discussions between Dr. Proctor, Dr. Jones and surgical oncology at [facility] regarding transfer vs. stay at [place] for recovery. * Continue NPO. OK to give small amount of ice chips and medications with sips of water. * IV heparin discontinued per Dr. Proctor. * Zofran 4 mg IV Q6H PRN for nausea. * Dilaudid IV for pain. * NGT removed. * Pathology report pending. #Problems with Sanchez drainage: Sanchez has been difficult to irrigate. Secondary to large pelvic mass adherent to the bladder. Per urology, it is suspected that there will be intermittent issues with Sanchez drainage until the mass is resected with reconstruction of the urinary tract. * Urology following. Appreciate their recs. * Patient may require bilateral nephrostomies to divert the urine. #SVT: Noted on telemetry with intermittent sinus tachycardia. * Start diltiazem 60 mg TID. #Bilateral lower extremity edema: Likely secondary to underlying malignancy rather than decompensated CHF. ECHO with normal LVEF, no wall motion abnormalities and no evidence of pulmonary hypertension. * Cardiology following. Appreciate their recs. * Continue Lasix 20 mg IV daily #UTI: UCx growing >100,000 colonies/ml of [place], sensitive to ceftriaxone and persistent mild dysuria. Hematuria likely secondary to UTI. * Continue ceftriaxone 1 g IV daily. #Anemia: Iron studies consistent with combination of iron deficiency anemia and anemia of chronic inflammation. S/p 5 units of pRBCs this admission. H/H 10.6/ 32.7 today. * Continue to monitor H/H and transfuse as needed. * EGD/colonoscopy to be performed as outpatient for evaluation of iron deficiency anemia and rectal bleeding. * Follow up with hematology as outpatient. * Iron sulfate 325 mg PO TID started. #Loss of consciousness: Most likely represent complex partial seizures, rather than syncope. EEG normal. * Continue telemetry to monitor for arrhythmias that could be associated with lightheadedness. * Continue prior to admission phenytoin 200 mg PO BID. #Anxiety: Has been endorsing significant anxiety and sadness related to his disorder. Per psych, does not meet criteria for psychiatric disorder, with his reaction likely representing a normal response to his newly diagnosed illness. * Psych consulted. Per their recs, if patient agrees to follow up with psychiatry or PCP, consider starting Zoloft 25 mg PO daily with plans to increase to 50 mg PO daily after 3 days. * Consider social work referral on discharge. Diet: NPO Fluids: D5NS @ 125 cc/hr Lytes: Replete to K >4-4.5 and Mg >2 DVT PPx: IV heparin and ALPs CODE: FULL Problem List: 1. Tachycardia 2. Pelvic neoplasm 3. Bilateral lower extremity edema 4. Anemia of chronic disease 5. Iron deficiency anemia 6. UTI (urinary tract infection) 7. Supraventricular tachycardia 8. Anxiety Pain Ratin Pain Location: Abdomen Pain Goal: Remain pain free Pain Plan: Dilaudid 1 mg IV Q4H PRN for severe pain (scale 7-10) Dilaudid 0.6 mg IV Q4H PRN for moderate pain (scale 4-6) Dilaudid 0.4 mg IV Q4H PRN for mild pain (scale 1-3) Tomorrow's Labs & Rationales: CBC to monitor H/H in the setting of anemia and WBC in the setting of leukocytosis BMP and Mg to monitor lytes and kidney function in the setting of hypokalemia and hypomagnesemia KAROLINA CHONG MD 12/30/162042: Attending MD Review Statement Attending Statement Attending MD Statement: examined this patient, discuss w/resident/PA/VIDEO CONFERENCE SPECIALIST, agreed w/resident/PA/VIDEO CONFERENCE SPECIALIST, reviewed EMR data (avail), discussed with nursing, discussed with case mgmt, amended to note Attending Assessment/Plan: The patient was seen and discussed with resident. Appreciate cardiology urology, and oncology follow-up. Thus far biopsies are negative. Most likely mucinous tumor. Will follow-up with pathology report. Continue current care. Still considering transfer to [place] for more definitive surgery.
--- NOTE | 2016-12-30 07:53 | PN- Urology ---
Subjective Subjective: No acute distrss. Problems with urine drainage via price Objective Vital Signs and I&Os Vital Signs Date Time Temp Pulse Resp B/P B/P Pulse O2 O2 Flow FiO2 Mean Ox Delivery Rate 12/30 0123 99.5 122 18 120/72 94 Nasal Cannula 12/30 0000 Nasal 1.0L Cannula 12/29 1600 Nasal 1.5L Cannula 12/29 1530 99.2 126 18 118/78 95 Nasal 1.0L Cannula 12/29 1115 Nasal 2.0L Cannula 12/29 0800 96 Nasal 2.0L Cannula 12/29 0800 99.4 124 18 132/80 96 Nasal 2.0L Cannula Intake & Output 12/30 0800 12/30 0000 12/29 1600 12/29 0800 12/29 0000 12/28 1600 Intake Total 800 1075 1054 1150 3700 600 Output Total 240 450 250 425 275 200 Balance 560 625 134 524 1653 400 Intake, IV 800 1075 1054 1150 3700 600 Intake, Oral 0 0 0 Number 1 1 Bowel Movements Output, 90 0 100 50 Gastric Drainage Output, Urine 150 450 150 375 275 200 Patient 206 lb Weight Weight Standing Scale Measurement Method Genitalia: price in place. Difficult to irrigate. Price advanced so that hub is at urethral meatus. Price then irrigates freely Assessment/Plan Assessment/Plan Imp: Large pelvic mass with probable invasion into bladder Plan: 1. If price doesn't drain or needs to be irrigated advance price to hub and then irrigate. Can tape price in this spot if necessary 2. Suspect that there will be intermittent issues with price draining due to large pelvic mass and these issues may continue until mass is resected and urinary tract reconstructed. Await transfer to other facility for definitive surgery. If surgery not done in near future and problems persist with urinary drainage he may require bilateral nephrostomies to divert the urine. As he recovers from surgery could give trial without price but would not do that yet
[2016-12-30 07:58] LABS: ABSOLUTE BASOPHIL COUNT 0 /CUMM (0.0-0.2); ABSOLUTE EOSINOPHIL COUNT 0 /CUMM (0.0-0.7); ABSOLUTE GRANULOCYTE CT 17.2 /CUMM (1.4-6.5); EOSINOPHIL % 0 % (0-5); MEAN CORPUSCULAR HGB 27.6 PG (27.0-31.0); MEAN CORPUSCULAR HGB CONC 32.5 G/DL (33.0-37.0); MEAN PLATELET VOLUME 6.8 FL (7.4-10.4); WHITE BLOOD CELL COUNT 18.9 /CUMM (4.8-10.8)
[2016-12-30 08:27] LABS: ABSOLUTE LYMPH COUNT 0.6 /CUMM (1.2-3.4); ABSOLUTE MONOCYTE COUNT 1.1 /CUMM (0.10-0.60); BASOPHIL % 0 % (0.0-2.0); MEAN CORPUSCULAR VOLUME 84.9 FL (80.0-94.0); PLATELET COUNT 260 /CUMM (130-400); RED BLOOD CELL CT 3.85 /CUMM (4.70-6.10)
[2016-12-30 08:30] LABS: HEMATOCRIT 32.7 % (42-52)
[2016-12-30 09:00] VITALS: BP 126/80
--- NOTE | 2016-12-30 09:15 | PN- Student ---
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 The patient is POD2 from exploratory laparotomy, right hemicolectomy, resection of terminal ileum, and aborted tumor resection. Overnight, he has had some difficulty with his catheter. Urine output has been low and given intraop occlusion of the catheter, it was felt to possibly be clogged again. The urinary catheter has been irrigated with return of irrigant, but no increase in urine output. The patient complains of 5/10 abdominal pain which worsens with positioning and coughing, nausea that increases with movement and coughing, and the sensation of needing to urinate. He otherwise denies headache, chest pain, shortness of breath, vomiting. He has expressed concerns over numerous stressors and endorses feelings of being overwhelmed. He has agreed to talk to psychiatry today on a trial basis. Current Medications Sig/Ghulam Start time Last Medication Dose Route Stop Time Status Admin Adenosine 6 MG ONCE ONE 12/30 0915 CAN IV 12/30 0916 Benzocaine/Menthol 1 ERICK Q2P PRN 12/29 1330 AC PO Ceftriaxone Sodium 1,000 MG 12/25 2200 AC 12/29 IV 2028 Dextrose/Sodium 1,000 ML Q8H 12/28 2145 AC 12/30 Chloride IV 0549 Furosemide 20 MG DAILY 12/29 1609 AC 12/29 IV 1804 Heparin Sodium 5,000 UNIT Q8 12/30 0600 AC 12/30 (Porcine) SC 0549 Heparin Sodium 25,000 UNIT Q24H 12/29 1615 DC 12/29 (Porcine) IV 1803 Sodium Chloride 500 ML Heparin Sodium 5,000 UNIT Q8 12/28 2200 DC 12/29 (Porcine) SC 1343 Hydromorphone HCl 0.4 MG Q4P PRN 12/28 214 AC IV Hydromorphone HCl 0.6 MG Q4P PRN 12/28 2145 AC 12/29 IV 1832 Hydromorphone HCl 1 MG Q4P PRN 12/28 2145 AC IV Magnesium Oxide 400 MG BID 12/29 1512 DC PO Magnesium Sulfate 1 GM Q2H 12/30 0930 AC Dextrose/Water 100 ML IV 12/30 1329 Magnesium Sulfate 1 GM Q2H 12/29 1600 DC 12/29 Dextrose/Water 100 ML IV 12/29 Ondansetron HCl 4 MG Q6P PRN 12/28 2145 AC IV Pantoprazole Sodium 40 MG DAILY 12/28 2230 AC 12/29 IV 0924 Patient Medication 1 ED .STK-MED ONE 12/29 1340 DC Teaching ED 12/29 1341 Phenytoin 200 MG Q12H 12/29 1200 AC 12/30 Sodium Chloride 50 ML IV 0039 Phenytoin 200 MG BID 12/28 2359 DC 12/29 Sodium Chloride 50 ML IV 0015 Potassium Chloride 80 MEQ ONCE ONE 12/30 0930 DC PO 12/30 0931 Potassium Chloride 20 MEQ ONCE ONE 12/29 1615 DC PO 12/29 1616 Potassium Chloride 40 MEQ ONCE ONE 12/29 1600 DC PO 12/29 1601 Potassium Chloride 40 MEQ ONCE ONE 12/29 1515 CAN PO 12/29 1516 Objective Objective: Vital Signs Date Time Temp Pulse Resp B/P B/P Pulse O2 O2 Flow FiO2 Mean Ox Delivery Rate 12/30 899 99.0 113 20 126/80 94 Nasal 1.0L Cannula 12/30 0850 95 Nasal 1.0L Cannula 12/30 0123 99.5 122 18 120/72 94 Nasal Cannula 12/30 0000 Nasal 1.0L Cannula 12/29 1600 Nasal 1.5L Cannula 12/29 1530 99.2 126 18 118/78 95 Nasal 1.0L Cannula 12/29 1115 Nasal 2.0L Cannula Intake & Output 12/30 1600 12/30 0800 05 0000 Intake Total 800 1075 Output Total 240 450 Balance 560 625 Intake, IV 800 1075 Intake, Oral 0 Number 1 Bowel Movements Output, 90 0 Gastric Drainage Output, Urine 150 450 Patient 206 lb Weight Weight Standing Scale Measurement Method Telemetry Monitoring: sinus tachycardia, rate 115 - 120 bpm. 3 beat run of Vtach at 0344. At ~0915, pt went into SVT with rate in the 200s, which self-resolved in 1 minute. General: A&Ox3, anxious HEENT: atraumatic, dry mucosa CV: tachycardic, normal S1, S2; no murmurs Pulmonary: on 1L NC. CTA. Heavy breathing when talking. Incentive Spirometer up to 2000 mL GI: slightly distended, soft. Appropriately tender. Dried blood at superior aspect of dressing. NGT in place with bilious drainage. : Price in place with reddish urine Results Results: Laboratory Tests 12/30/16 0630: Anion Gap 9, Estimated GFR > 60, BUN/Creatinine Ratio 16.0, Magnesium 1.7, CBC w Diff MAN DIFF ORDERED, RBC 3.85 L, MCV 84.9, MCH 27.6, RDW 18.0 H, MPV 6.8 L, Gran % 91.0 H, Lymphocytes % 3.4 L, Monocytes % 5.6, Eosinophils % 0, Basophils % 0 L, Absolute Granulocytes 17.2 H, Segmented Neutrophils 74, Band Neutrophils 16 H, Absolute Lymphocytes 0.6 L, Lymphocytes 5 L, Monocytes 5, Absolute Monocytes 1.1 H, Absolute Eosinophils 0, Absolute Basophils 0, Platelet Estimate ADEQUATE, Hypochromic-Microcytic 2+, Anisocytosis 1+, PUBS MCHC 32.5 L 12/30/16 0030: APTT 38 H CXR on 12/29/16: NGT not visualized below diaphragm, may need repeat imaging Assessment/Plan Assessment: Dale Carrion is a 61 yo M with 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 Plan: Abdominal Mass, Suspected Malignancy: POD2 from attempted resection, mass unable to be resected d/t relation with bladder. Current care team discussion on chemo/ radiation vs. transfer for definitive surgery. * GI, Heme/Onc, General Surgery, Urology following * Discussion of chemo/radiation and delayed surgery vs. transfer to [place] for definitive management * Urine cytology with atypical epithelial cells, WBCs, and RBCs * Awaiting surgical pathology * NGT in place * NPO with all meds IV * GI prophylaxis with Protonix 40mg IV * Zofran q6h prn for nausea Acute Blood Loss Anemia: has received 5u pRBCs since admission. H&H today was 10.6/32.7, probably dilutional decrease from yesterday. * CBC daily * transfuse as needed to keep Hb >7 * Ferrous sulfate 325 TID once stable per heme/onc UTI: Has been on ceftriaxone 1000mg IV. UTI likely complicated by tumor invasion into posterior bladder wall, with disortion of urinary system anatomy. * Continue ceftriaxone * Irrigate price as needed * Urology recommendations * Discussion for nephrostomy tubes if definitive surgical management delayed History of PE: warfarin has been held, IV heparin held d/t surgical management. Currently on HSQ * Continue HSQ * ALPs * Defer IV heparin gtt until okay'd by surgery Tachycardia: consistently in 110's - 120's, with occasional increase in HR to 170's - 200's. As anemia has been resolving, unlikely to be 2/2 anemia. SVT vs paroxysmal atrial fibrillation? 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 * Continue Dilantin IV until patient able to tolerate PO ?Adjustment disorder with unipolar depression: patient has expressed feelings of being overwhelmed and depressed in relation to multiple stressors and the recent diagnosis of mass, which is likely cancerous. * Psych consult and recommendations Code Status: Full Diet: NPO DVT prophylaxis: HSQ 5000u, ALPs
--- NOTE | 2016-12-30 09:20 | PN- Oncology ---
Subjective Subjective: He reports having intermittent pain with coughing and moving. Pain is in the abdomen. He has some bladder irritation and feels like he needs to urinate. He has moved his bowel yesterday. He is concerned about he NG tube being in place. He would like to have it removed. Review of Systems Constitutional: Denies: chills, fever, weakness. EENTM: Reports: nasal pain. Cardiovascular: Denies: chest pain. Gastrointestinal: Reports: abdominal pain. Denies: nausea. Genitourinary: Reports: urgency. All Other Systems: Reviewed and Negative Objective Vital Signs and I&Os Vital Signs Date Time Temp Pulse Resp B/P B/P Pulse O2 O2 Flow FiO2 Mean Ox Delivery Rate 12/30 0123 99.5 122 18 120/72 94 Nasal Cannula 12/30 0000 Nasal 1.0L Cannula 12/29 1600 Nasal 1.5L Cannula 12/29 1530 99.2 126 18 118/78 95 Nasal 1.0L Cannula 12/29 1115 Nasal 2.0L Cannula Intake & Output 12/30 1600 12/30 0800 12/30 0000 12/29 1600 12/29 0800 12/29 0000 Intake Total 800 1075 1054 1150 3700 Output Total 240 450 250 425 275 Balance 560 625 327 277 2420 Intake, IV 800 1075 1054 1150 3700 Intake, Oral 0 0 0 Number 1 1 Bowel Movements Output, 90 0 100 50 Gastric Drainage Output, Urine 150 450 150 375 275 Patient 93.44 kg Weight Weight Standing Scale Measurement Method Physical Exam: General Appearance: no apparent distress, somnolent Ears, Nose, Throat: NG tube in place Respiratory: normal breath sounds, chest non-tender, no respiratory distress Cardiovascular: tachycardia Abdomen: dressing in place with minimal drainage Extremities: pedal edema Reproductive: price in place with pink urine Current Medications: Current Medications Sig/Ghulam Start time Last Medication Dose Route Stop Time Status Admin Benzocaine/Menthol 1 ERICK Q2P PRN 12/29 1330 AC PO Ceftriaxone Sodium 1,000 MG 12/25 2200 AC 12/29 IV 2028 Dextrose/Sodium 1,000 ML Q8H 12/28 2145 AC 12/30 Chloride IV 0549 Furosemide 20 MG DAILY 12/29 1609 AC 12/29 IV 1804 Heparin Sodium 5,000 UNIT Q8 12/30 0600 AC 12/30 (Porcine) SC 0549 Heparin Sodium 25,000 UNIT Q24H 12/29 1615 DC 12/29 (Porcine) IV 1803 Sodium Chloride 500 ML Heparin Sodium 5,000 UNIT Q8 12/28 2200 DC 12/29 (Porcine) SC 1343 Hydromorphone HCl 0.4 MG Q4P PRN 12/28 214 AC IV Hydromorphone HCl 0.6 MG Q4P PRN 12/28 2145 AC 12/29 IV 1832 Hydromorphone HCl 1 MG Q4P PRN 12/28 214 AC IV Magnesium Oxide 400 MG BID 12/29 1512 DC PO Magnesium Sulfate 1 GM Q2H 12/29 1600 DC 12/29 Dextrose/Water 100 ML IV 12/29 1959 2022 Ondansetron HCl 4 MG Q6P PRN 12/28 2144 AC IV Pantoprazole Sodium 40 MG DAILY 12/28 2230 AC 12/29 IV 0924 Patient Medication 1 ED .STK-MED ONE 12/29 1340 DC Teaching ED 12/29 1341 Phenytoin 200 MG Q12H 12/29 1200 AC 12/30 Sodium Chloride 50 ML IV 0039 Phenytoin 200 MG BID 12/28 2359 DC 12/29 Sodium Chloride 50 ML IV 0015 Potassium Chloride 20 MEQ ONCE ONE 12/29 1615 DC PO 12/29 1616 Potassium Chloride 40 MEQ ONCE ONE 12/29 1600 DC PO 12/29 1601 Potassium Chloride 40 MEQ ONCE ONE 12/29 1515 CAN PO 12/29 1516 Results Last 24 Hours of Lab Results: Laboratory Tests 12/30 12/30 0630 0030 Chemistry Sodium (137 - 145 mmol/L) 139 Potassium (3.5 - 5.1 mmol/L) 3.2 L Chloride (98 - 107 mmol/L) 105 Carbon Dioxide (22 - 30 mmol/L) 25 Anion Gap (5 - 16) 9 BUN (9 - 20 mg/dL) 16 Creatinine (0.7 - 1.2 mg/dL) 1.0 Estimated GFR (>60 ml/min) > 60 BUN/Creatinine Ratio (7 - 25 %) 16.0 Magnesium (1.6 - 2.3 mg/dL) 1.7 Coagulation APTT (25 - 37 SEC) 38 H Hematology CBC w Diff Pending WBC Pending RBC Pending Hgb Pending Hct Pending MCV Pending MCH Pending RDW Pending Plt Count Pending MPV Pending Gran % Pending Lymphocytes % Pending Monocytes % Pending Eosinophils % Pending Basophils % Pending Absolute Granulocytes Pending Absolute Lymphocytes Pending Absolute Monocytes Pending Absolute Eosinophils Pending Absolute Basophils Pending PUBS MCHC Pending Assessment/Plan Assessment/Recommendations: Mr. Carrion is a 61-year-old male with history of seizure, PE, abdominal mass in 2014 who presents with symptomatic anemia. Imaging demonstrated a pelvic mass with possible communication with bowel but no definite with bladder. He was taken to OR on 12/28 for exploratory laparoscopy by Dr. Proctor. Per Dr. 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 Dr. Proctor did resect ischemic portion of the ileum and cecum. The mass was left intact. Due to the adherence to the bladder, Dr. Proctor has recommended transfer to higher facility for complete surgical resection. Transfer to [facility] was discussed but was placed on hold due to concern on whether patient would benefit from chemotherapy with radiation prior to surgery. I discussed briefly with another oncology and surgery regarding option in this patient. Pending pathology result, tt may be reasonable for pre-operative chemotherapy with or without radiation but surgical management would not be changed. If the tumor is more low grade and indolent, chemotherapy would be less effective and would be better serve to undergo surgery prior. The main issues for the patient would be if he would be able to wait for 4 weeks for surgical incision to heal. His bladder invasion and hematuria is concerning progression of tumor invasion and will need surgery sooner than later. This has been discussed with Dr. Jones of urology. He felt that it would be better to have surgery soon than later given the bladder symptoms. Ureteral stent was not able to be placed. He may need nephrostomies placed in the interim. Dr. Proctor is discussing with [facility] colorectal surgery and another second opinion with surgeon here. 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 1. Follow up pathology on resected sample 2. Will need discussion with tumor board regarding recommendations on surgery Please call [phone] with any questions. Problem List: 1. Bilateral lower extremity edema 2. Abdominal mass 3. History of pulmonary embolism 4. Hematuria 5. Rectal bleeding
--- NOTE | 2016-12-30 15:02 | PN- Cardiology ---
Subjective Subjective: * Occasional palpitations and shortness of breath. * sinus tachycardia * partial bowel resection with plan for additional surgery to remove his abdominal mass that is adherent to his bladder. Objective Vital Signs and I&Os Vital Signs Date Time Temp Pulse Resp B/P B/P Pulse O2 O2 Flow FiO2 Mean Ox Delivery Rate 12/30 1202 130/62 12/30 0900 99.0 113 20 126/80 94 Nasal 1.0L Cannula 12/30 0850 95 Nasal 1.0L Cannula 12/30 0123 99.5 122 18 120/72 94 Nasal Cannula 12/30 0000 Nasal 1.0L Cannula 12/29 1600 Nasal 1.5L Cannula 12/29 1530 99.2 126 18 118/78 95 Nasal 1.0L Cannula Intake & Output 12/30 1600 12/30 0800 12/30 0000 12/29 1600 12/29 0800 12/29 0000 Intake Total 800 1075 1054 1150 3700 Output Total 240 450 250 425 275 Balance 560 625 334 641 3316 Intake, IV 800 1075 1054 1150 3700 Intake, Oral 0 0 0 Number 1 1 Bowel Movements Output, 90 0 100 50 Gastric Drainage Output, Urine 150 450 150 375 275 Patient 206 lb Weight Weight Standing Scale Measurement Method Physical Exam: General: WD/ overweigth male in NAD; alert and oriented x 3 Neck: no JVD, no carotid bruit Heart: regular and tachycardic w/o murmur Lungs: clear bilaterally Abdomen: soft, tender Extremities: 3+ bilateral leg edema Assessment/Plan Assessment/Plan * This patient has edema that is likely related to a malignancy rather than decompensated CHF. His EF is normal and he has normal pulmonary pressures. In addition, this patient is active at his baseline without symptoms of ischemia. His ECG does not show any ischemic changes. He has tolerated his surgery well. Continue to monitor on telemetry to assess for any dysrhythmia that may be associated with his lightheadedness. I think it is most likely that his falls and LOC were related to seizures however. Replete the patient's potassium to 4- 4.5. * Leg swelling: Begin Lasix 20mg IV daily. * SVT noted on telemetry along with intermittent sinus tachycardia. Begin Cardizem 60mg TID. Stop beta gladys. Continue telemetry? Yes
[2016-12-30 15:30] VITALS: BP 118/68
--- NOTE | 2016-12-30 16:12 | Discharge Summary ---
Visit Information Visit Dates Admission Date: 12/24/16 Discharge Date: 01/05/2017 Hospital Course Course Attending Physician: KAROLINA CHONG MD Primary Care Physician: GARRETT MACIAS MD Consulting Request: 1 Consulting Specialty: Hematology/Oncology Consulting Physician: dr CASTAÑEDA Reason for Consult: abdominal mass Consulting Request: 2 Consulting Specialty: General Surgery Consulting Physician: Dr PROCTOR Reason for Consult: abdominal mass Consulting Request: 3 Consulting Specialty: Urology Consulting Physician: DR siddiqui Reason for Consult: abdominal mass with bladder involvement Hospital Course: 61 yo M with 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 Patient reported of increasing weakness, fatigue, dyspnea on exertion and inability to fit into his pants due to worsening LE edema and abdominal distension. Though his symptoms are ongoing for over 1.5 yrs, they have been progressive over past 1 month. He provides multiple compaints multiple episodes of syncope ? associated with palpitations and lightheadedness. He c/o dysuria and urinary frequency/ urgency. He has hemorrhoids and reported painful bleeding especially hematochezia for over 2 yrs. Heartburn+, no melena or hematemesis. He denied previous colonoscopy or EGD. No loss of appetite. He denies excessive NSAID use. On reviewing his chart, it is noted that patient had seen Dr. French in 2015 to evaluate cause of hypercoagulable state, wherein CT and MRI revealed an enlarged prostate and a complex cystic mass with peripheral rim enhancement in the right lower quadrant at the base of cecum with communication to appendix suspicious for mucocele or mucinous neoplasm mucinous cystadenocarcinoma. Patient did not follow up with Dr. French. Vitals stable except for tachycardia. Exam: AAO, flat affect. Chest b/l clear, Heart S1S2 regular, Abd soft, palpable suprapubic mass with right lower quadrant and suprapubic tenderness. LE: 3+ pitting pedal edema extending upto abdomen. Rectal exam (done by resident): enlarged prostate nodular, no hemorrhoids, heme positive stool. Labs: H/H 7.8/24.4, normocytic, (baseline 10-12/ 29-32), BUN 25, Ca 7.9, albumin 2.6, TSH 2.74, LFT normal, trop neg, HbA1c 5.8, INR 1.95. CXR: hiatal hernia, basilar atelectasis. LE doppler: no DVT, right left popliteal cyst. UA turbid, packed WBC, packed bacteria, RBC 25-50, nitrite positive, large esterase. CT abd/pelvis: large mass in lower central pelvis with air collections within the mass with mass engulfing the small bowel loops. Mass displaces the bladder and impresses on prostate. EKG: SR, ventricular bigeminy. Echo (2013): normal LV function. 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 Right hemicolectomy was performed for transection of ischemic bowel(5 units of PRBC transfused), however tumor resection was aborted and mass was left intact due to inability to perform radical resection of bladder. Extensive multidisciplinary discussions were initiated to transfer patient to a higher care facility for complete surgical resection, however, [facility] medical oncology feel that patient would not be suited for inpatient workup at this time. Preliminary pathology negative for malignancy in resected colon sample or 17 lymph nodes. Patient will need repeat tissue sampling in view of negative pathology results, with sigmoidoscopy , cystoscopy and IR-guided biopsy considered as potential avenues for the biopsy. However per GI, sigmoidoscopy for biopsy would not be feasible based on the anatomy. Per IR, needle biopsy cannot be performed as well due to potential seeding of the peritoneum. Urology has previously stated that patient needs to be transferred to high care facility for radical resection of the bladder. Per oncology, it is questionable whether patient would benefit from chemotherapy or radiation therapy given lack of tissue diagnosis as well as mucinous nature of tumor. On 01.02.2017 patient developed fever of 101 and blood cultures were sent patient already finished ceftriaxone for UTI. Blood cultures and C diff were negative. Subsequent abdominal CT scan showed:" At the operative site, there is a nonopacified area of higher than simple fluid attenuation which could represent a collection postoperatively." Patient was off on antibiotics. ID consultation however his clinical condition deteriorated he developed achy and low urine output despite being IV fluids and also elevated WBC count. Patient is drainage of the possible intra-abdominal abdominal abscess and also possible surgery of the bladder needing higher level of care. He will be transferred to [facility]. He was on IV fluids and NPO upon discharge. patient should be evaluated by [facility] surgical oncology as well. Previous discussion were made with (Dr. Asher/Dr. Arriola). #History of PE: Diagnosed in 2013. Patient was on warfarin [id number]. we put him on heprain IV for surgery, already on Coumadin for couple of days however due to fluctuation of INR we put him back on IV heparin upon discharge. #Problems with Price drainage/JUAN patient also underwent Cystoscopy and unsuccessful attempt at bilateral ureteral stent insertion. Secondary to large pelvic mass elevating bladder base. Per urology, it is suspected that there will be intermittent issues with Price drainage until the mass is resected with reconstruction of the urinary tract.Patient may require bilateral nephrostomies to divert the urine.Per urology, if Price is not draining, advance Price without deflating balloon, followed by the instillation of 60 ml of sterile water or saline, then allowing to drain passively. During this and days following the discharge patient had low urine output and creatinine elevated to 2.5 despite being on IV fluids. Nephrology consult was pending upon discharge. Ultrasound of the bladder and kidneys did not show any obstruction. #Sinus tachycardia/SVT: During the hospitalization patient developed episodes of SVT. Per cardiology consultation he was put on by mouth Cardizem. #Bilateral lower extremity edema: Likely secondary to underlying malignancy rather than decompensated CHF. ECHO with normal LVEF, no wall motion abnormalities and no evidence of pulmonary hypertension.we put the patient on Po lasix temporarily however due to JUAN we discharged Lasix during the hospitalization. #UTI: UCx growing >100,000 colonies/ml of Providencia, sensitive to ceftriaxone and persistent mild dysuria. patient was treated by IV ceftriaxone for 10 days. #Anemia: Iron studies consistent with combination of iron deficiency anemia and anemia of chronic inflammation. S/p 5 units of pRBCs this admission. H/H currently stable.EGD/colonoscopy to be performed as outpatient for evaluation of iron deficiency anemia and rectal bleeding.Follow up with hematology as outpatient.Continue iron sulfate 325 mg PO TID. #Loss of consciousness/ hx of seizures Most likely represent complex partial seizures, rather than syncope. EEG normal. we Continued phenytoin 200 mg PO BID per Neurology. #Anxiety: He Has been endorsing significant anxiety and sadness related to his disorder. Per psych, does not meet criteria for psychiatric disorder, with his reaction likely representing a normal response to his newly diagnosed illness.we put him on sertraline PO daily. Allergies: Coded Allergies: NO KNOWN ALLERGIES (01/11/14) Significant Procedures: THE [address] [id number] MEDICAL RECORDS DEPARTMENT OPERATIVE REPORT PATIENT: JUANY GONZALEZ PRESENT AGE: 61 PATIENT ACCOUNT NO: [id number] DATE OF : 53 ADMIT/SERVICE DATE: 12/24/16 ATTENDING PHYSICIAN: KAROLINA CHONG MD PATIENT CARE UNIT CONFIDENTIAL COPY Operative/Inv Procedure Report Surgery Date: 12/28/16 Name of Procedure: Exploratory laparotomy with right hemicolectomy Pre-Operative Diagnosis: Mucinous pelvic neoplasm Post-Operative Diagnosis: Same Estimated Blood Loss: 50ml to 100ml Surgeon/Quill Skinner: Justin Proctor M.D./Jun Contreras MD Anesthesia: general endotracheal tube Specimens: Right colon and ileum Operative Indication: 61-year-old male who presents with lower extremity edema. Workup shows large pelvic mass abutting the bladder and loops of colon. CT scan shows no evidence of fistula formation. 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 It has now progressed to 16 cm. Plan will be for resection. Operative/Procedure Note Note: After consent is brought to the operative laid supine. Gen. anesthesia was obtained and he was placed in lithotomy position. Preoperative cystoscopy was performed and stents could not be placed due to the distortion of his bladder. The orifices could not be seen. I then performed rigid proctoscopy and there is no evidence of rectal invasion although the prep was poor. His abdomen was then prepped and draped. Midline incision made sharply we came down to subcutaneous tissues tissues with cautery. The fascia was incised sharply and carefully opened. Bookwalter retraction system was placed. The abdomen was explored. A large pelvic tumor was seen that was densely adherent to the cecum. Posteriorly it appeared to be free. There was rectum that was free up into the pelvic brim. Small bowel was normal. To help mobilize the mass we elected to perform en bloc resection of the involved cecum. We created a window in the mesentery of the right colon after taking down the white line of Toldt. Mid right colon was transected with ZO stapler. The same was done for the terminal ileum. The mesenteric vessels between them were taken with the LigaSure device. We were then able to mobilize posteriorly quite a distance. The same could be done laterally. We then began or dissection anteriorly. The plane between the bladder and the tumor was difficult to identify. It appeared to be fused with multiple large vessels on the surface of the tumor and bladder. We then inflated the bladder with water to help distended and delineated the anatomy. We still unable to created anatomically identifiable plane between the tumor and the bladder. Completely fused and the feeling was that there was need for at least partial resection of the bladder. It may have even involve the trigone. Intraoperative consultation with urology was performed. It was his impression that the operation would be best suited at a facility capable of performing such a radical resection of his bladder. Therefore we aborted resection. There is ischemic segment of colon stuck to the posterior wall of the tumor that could not be left in place. It was resected close to the wall of the tumor with ZO stapler. A [id number] stapled anastomosis of the right colon to ileum was then performed with the ZO stapler. Peritoneal cavity was irrigated with normal saline. Fascia was closed with running 0 Maxon suture. Skin was closed with everardo. Sterile dressings applied. Sponge and needle counts are correct Findings: Large pelvic tumor fused to bladder prohibiting resection. DICTATED BY: JUSTIN PROCTOR MD DATE/TIME DICTATED:12/28/162023 SUPERVISOR ABATTOIR:JASPREET DATE/TIME TRANSCRIBED:12/28/162023 REPORT NUMBER:[id number] CONFIDENTIAL, DO NOT COPY WITHOUT APPROPRIATE AUTHORIZATION. <Electronically signed by JUSTIN PROCTOR MD> 12/28/162036 CC: JUSTIN PROCTOR MD Report Status: Signed Report #: [id number] Page[p pg] THE [address] [id number] MEDICAL RECORDS DEPARTMENT OPERATIVE REPORT PATIENT: JUANY GONZALEZ PRESENT AGE: 61 PATIENT ACCOUNT NO: [id number] DATE OF : 53 ADMIT/SERVICE DATE: 12/24/16 ATTENDING PHYSICIAN: KAROLINA CHONG MD PATIENT CARE UNIT CONFIDENTIAL COPY Operative/Inv Procedure Report Surgery Date: 12/28/16 Name of Procedure: Cystoscopy and unsuccessful attempt at bilateral ureteral stent insertion Pre-Operative Diagnosis: pelvic mass Post-Operative Diagnosis: pelvic mass Estimated Blood Loss: less than 50ml Surgeon/Quill Skinner: CASTILLO Jones MD, WILLIAM Anesthesia: general endotracheal tube Drains: 20 fr coude price Specimens: none Complications: unable to insert ureteral stents Condition: Stable Operative Indication: Large pelvic mass Operative/Procedure Note Note: The patient was taken to the OR and identified. He was placed in the supine position on the OR table and a time out executed appropriately. General anesthesia was induced via an ETT. He was placed in the dorsal lithotomy position and prepped and draped in the usual fashion for cystoscopy. A surgical pause was executed appropriately. The 22 fr cystoscope was placed into the bladder under direct vision using the 30 degree lens. The anterior urethra was normal. The distal prostate was normal. To pass the scope into the bladder it had to be angled in an almost vertical oriention and the bladder floor and trigone were being displaced anteriorly by the pelvic mass. Due to this, neither ureteral orifice could be identified. Also on the floor of the bladder there was one area with a papillary mass, about 1-2 cm in size. There was also another area of abnormal tissue on the bladder floor which was less papillary. Since neither ureteral orifice could be identified, the procedure was terminated and a 20 fr coude catheter placed. Findings: Markedly elevated bladder floor due to pelvic mass Abnormal tissue on floor of bladder Unable to identify either ureteral orifice DICTATED BY: CHANELLE JONES MD DATE/TIME DICTATED:12/28/161947 SUPERVISOR ABATTOIR:KINSEY DATE/TIME TRANSCRIBED:12/28/161947 REPORT NUMBER:[id number] CONFIDENTIAL, DO NOT COPY WITHOUT APPROPRIATE AUTHORIZATION. <Electronically signed by CHANELLE JONES MD> 12/28/162000 CC: CHANELLE JONES MD Report Status: Signed Report #: [id number] Page[p pg] Pertinent Lab Results: Intake & Output 01/05 0400 01/04 1600 01/04 0400 01/03 1600 01/03 0400 Intake Total 800 300 660 489 182 4937 Output Total 100 50 225 175 250 150 Balance 700 250 435 -75 650 1050 Intake, IV 800 300 600 800 Intake, Oral 0 300 360 100 300 400 Number 1 3 10 1 3 3 Bowel Movements Output, 25 100 Emesis Output, Urine 75 50 125 175 250 150 Patient 182 lb 219 lb Weight Weight Standing Scale Measurement Method Laboratory Tests 01/05/17 0953: Ur Random Creatinine Cancelled, Ur Random Sodium Cancelled, Ur Random Potassium Cancelled, Fraction Sodium Excret Cancelled 01/05/17 0730: Anion Gap 10, Estimated GFR 26 L, BUN/Creatinine Ratio 14.0, Magnesium 2.5 H, Total Bilirubin 0.3, Direct Bilirubin 0.3, AST 17, ALT 43, Alkaline Phosphatase 152 H, Total Protein 4.1 L, Albumin 1.7 L, PT 20.5 H, INR 1.97 H, CBC w Diff MAN DIFF ORDERED, RBC 3.73 L, MCV 85.6, MCH 27.5, RDW 18.4 H, MPV 8.2, Gran % 94.8 H, Lymphocytes % 2.9 L, Monocytes % 2.3, Eosinophils % 0, Basophils % 0 L, Absolute Granulocytes 20.0 H, Segmented Neutrophils 52, Band Neutrophils 39 H, Absolute Lymphocytes 0.6 L, Lymphocytes 8 L, Monocytes 1 L , Absolute Monocytes 0.5, Absolute Eosinophils 0, Absolute Basophils 0, Platelet Estimate ADEQUATE, Polychromasia 1+, Hypochromic-Microcytic 1+, Anisocytosis 1+, PUBS MCHC 32.2 L 01/04/17 1100: Ur Random Creatinine 35.4, Ur Random Sodium 54, Ur Random Potassium 17.9, Fraction Sodium Excret 2.0 H 01/04/17 0600: PT Cancelled, INR Cancelled, CBC w Diff Cancelled, WBC Cancelled, RBC Cancelled, Hgb Cancelled, Hct Cancelled, MCV Cancelled, MCH Cancelled, RDW Cancelled, Plt Count Cancelled, MPV Cancelled, PUBS MCHC Cancelled 01/04/17 0430: Magnesium Cancelled 01/04/17 0430: Anion Gap 11, Estimated GFR 38 L, BUN/Creatinine Ratio 13.3, Magnesium 2.1, PT 71.1 *H, INR 6.90 *H, CBC w Diff MAN DIFF ORDERED, RBC 4.59 L, MCV 85.7, MCH 27.1, RDW 17.9 H, MPV 9.0, Gran % 95.0 H, Lymphocytes % 3.0 L, Monocytes % 1.9, Eosinophils % 0, Basophils % 0.1, Absolute Granulocytes 15.2 H, Segmented Neutrophils 55, Band Neutrophils 37 H, Absolute Lymphocytes 0.5 L, Lymphocytes 5 L, Monocytes 3, Absolute Monocytes 0.3, Absolute Eosinophils 0, Absolute Basophils 0, Platelet Estimate ADEQUATE, Poikilocytosis 1+, PUBS MCHC 31.6 L 01/03/17 0610: Anion Gap 11, Estimated GFR > 60, BUN/Creatinine Ratio 15.0, Magnesium 1.8, PT 39.2 H, INR 3.78 H, CBC w Diff MAN DIFF ORDERED, RBC 3.90 L, MCV 85.9, MCH 27.5, RDW 18.1 H, MPV 8.7, Gran % 94.4 H, Lymphocytes % 3.1 L, Monocytes % 2.2, Eosinophils % 0, Basophils % 0.3, Absolute Granulocytes 20.8 H, Segmented Neutrophils 69, Band Neutrophils 25 H, Absolute Lymphocytes 0.7 L, Lymphocytes 3 L, Monocytes 3, Absolute Monocytes 0.5, Absolute Eosinophils 0, Absolute Basophils 0.1, Anisocytosis 2+, PUBS MCHC 32.0 L Microbiology 01/04 2255 STOOL: Clostridium difficile Toxin A & B - COMP Disposition Summary Disposition Principal Diagnosis: Large abdominal tumor s/p right hemicolectomy Episodes of SVT JUAN Additional Diagnosis: Anemia, history of PE Discharge Disposition: SNF Discharge Instructions General Discharge Information Code Status: Full Code Patient's Diet: Heart Healthy Patient's Activity: as tolerated Follow-Up Instructions/Appts: -You are being transferred to [facility] for higher level of care. -Please follow-up with your neurologist 7 days after discharge. -Please follow-up with your primary care provider within 7 days after discharge. -Please follow-up with your section supervisor 7 days after discharge. -Please follow-up with your surgeon 7 days after discharge. -Please follow-up with your urologist 7 days after discharge. -Please follow-up with your psychiatrist 7 days after discharge. -Please follow-up with [facility] oncology service after discharge. -We have made changes to your home medications, please read the instructions carefully. -Please come back to the hospital if your symptoms got worse. Medications at Discharge Discharge Medications: Stop taking the following medications: Warfarin Sodium (Warfarin Sodium) 7.5 MG TABLET ORAL As Directed Qty = 30 Continue taking these medications: Phenytoin Sodium Extended (Phenytoin Sodium Extended) 100 MG CAPSULE 2 Capsule ORAL TWICE DAILY Qty = 360 Comments: Last Taken: 01/05/17 Time: 10 AM Multivitamin (Daily Multiple Vitamin) 1 EACH TABLET 1 Tablet ORAL DAILY Comments: NOT GIVEN IN HOSPITAL Start taking the following new medications: Sertraline HCl (Sertraline HCl) 25 MG TABLET 25 Milligram ORAL DAILY Days = 28 No Refills Comments: Last Taken: 01/05/17 Time: 10 AM Diltiazem HCl (Diltiazem 12HR ER) 60 MG CAP.ER.12H 120 Milligram ORAL TWICE DAILY Days = 28 No Refills Comments: Last Taken: 01/05/17 Time: 10 AM Omeprazole (Omeprazole) 20 MG CAPSULE.DR 40 Milligram ORAL DAILY BEFORE BREAKFAST Days = 28 No Refills Comments: NOT GIVEN IN THE HOSPITAL Yd5-Normal Saline (Dextrose 5%-0.9% NaCl IV Soln) 5 %-0.9 % IV.SOLN 1,000 Milliliters INTRAVEN CONTINUOUS INFUSION Qty = 1 No Refills Instructions: 150 per hour Comments: D5NS @ 150 MLHR Heparin Sod,Pork in 0.45% NaCl (Heparin-1/2NS 25,000 Units/250) 25,000 UNIT/250 ML (100 UNIT/ML) IV.SOLN 0 INTRAVEN CONTINUOUS INFUSION Qty = 1 No Refills Instructions: PER ANTICOAGULATION PROTOCOL Comments: HEPARIN GTT RUNNING AT 26 ML/HR. Copies To: HOLLIE SOSA,CASSIDY Leonardo; GIOVANNA SOSA,CHANELLE Winn; FREDDY BUSTILLO APRN, MD, CHRISTOPHER Briceno; MADDY SOSA,[facility]; COLLEEN SOSA,GARRETT; ANAI SSOA,JUSTIN Leger Attending MD Review Statement Documenting Attending: KAROLINA CHONG MD Other Findings: As above, the patient is to be transferred to [facility] for procedures and eventual surgery.
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
[2016-12-31 01:02] VITALS: BP 120/60
--- NOTE | 2016-12-31 07:21 | PN- Housestaff ---
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 Patient seen and examined this morning. He is lying comfortably in bed. He endorses mild abdominal tenderness. He reports some urinary leakage and mild dysuria. He denies chest pain or shortness of breath. He is amenable to starting anti-depressant therapy. Review of Systems Constitutional: Reports: see HPI. Objective Last 24 Hrs of Vital Signs/I&O Vital Signs Date Time Temp Pulse Resp B/P B/P Pulse O2 O2 Flow FiO2 Mean Ox Delivery Rate 12/31 1335 105 132/88 12/31 0821 98.0 97 20 120/70 93 Room Air 12/31 0638 95 120/60 12/31 0102 99.1 106 18 120/60 95 Nasal 2.0L Cannula 12/31 0000 97 Nasal 1.0L Cannula 12/30 2154 109 126/70 12/30 1751 96 Nasal 1.0L Cannula 12/30 1628 126/70 12/30 1530 99.1 116 18 118/68 95 Nasal 1.0L Cannula Intake & Output 12/31 1600 12/31 0800 12/31 0000 Intake Total 200 375 Output Total 75 50 Balance 125 325 Intake, IV 375 Intake, Oral 200 Output, Urine 75 50 Patient 95.935 kg Weight Weight Standing Scale Measurement Method Physical Exam General Appearance: Alert, Oriented X3, No Acute Distress HEENT: Atraumatic, Mucous Membr. moist/pink Neck: Supple Cardiovascular: Normal S1, Normal S2, No Murmurs, Gallops, Rubs, Tachycardic Lungs: Clear to Auscultation Abdomen: Soft, Tender to Palpation, Dressing in Place, Positive Bowel Sounds Extremities: No Clubbing, No Cyanosis, Bialteral Lower Extremities with 2+ Pitting Edema Current Medications: Current Medications Sig/Ghulam Start time Last Medication Dose Route Stop Time Status Admin Benzocaine/Menthol 1 ERICK Q2P PRN 12/29 1330 AC PO Ceftriaxone Sodium 1,000 MG 12/25 2200 AC 03 IV 2153 Dextrose/Sodium 1,000 ML Q8H 12/28 214 AC 12/31 Chloride IV 1333 Diltiazem HCl 60 MG Q8 12/30 1400 AC 12/31 PO 1335 Furosemide 20 MG DAILY 12/29 1609 AC 12/31 IV 0834 Heparin Sodium 5,000 UNIT Q8 12/30 0600 AC 12/31 (Porcine) SC 1334 Hydromorphone HCl 0.4 MG Q4P PRN 12/28 2145 AC 12/31 IV 0829 Hydromorphone HCl 0.6 MG Q4P PRN 12/28 214 AC 12/29 IV 1832 Hydromorphone HCl 1 MG Q4P PRN 12/28 214 AC IV Magnesium Sulfate 1 GM ONCE ONE 12/31 1115 AC Dextrose/Water 100 ML IV 12/31 1514 Metoprolol Tartrate 6.25 MG BID 12/30 1015 DC 12/30 PO 1202 Ondansetron HCl 4 MG Q6P PRN 12/28 214 AC IV Pantoprazole Sodium 40 MG DAILY 12/28 2230 AC 12/31 IV 0834 Phenytoin 200 MG BID 12/30 2200 AC 12/31 PO 0834 Phenytoin 200 MG Q12H 12/29 1200 DC 12/30 Sodium Chloride 50 ML IV 1205 Potassium Chloride 10 MEQ Q1H 12/31 1115 DC 12/31 IV 12/31 1216 1332 Sertraline HCl 25 MG DAILY 12/31 1000 AC 12/31 PO 01/02 1001 1156 Last 24 Hrs of Lab/Yuri Results Last 24 Hrs of Labs/Mics: Laboratory Tests 12/31/16 0652: Anion Gap 7, Estimated GFR > 60, BUN/Creatinine Ratio 18.8, Magnesium 1.8, CBC w Diff MAN DIFF ORDERED, RBC 3.76 L, MCV 85.1, MCH 27.5, RDW 17.5 H, MPV 7.1 L, Gran % 91.2 H, Lymphocytes % 3.1 L, Monocytes % 4.8, Eosinophils % 0.8, Basophils % 0.1, Absolute Granulocytes 12.4 H, Segmented Neutrophils 76 H, Band Neutrophils 17 H, Absolute Lymphocytes 0.4 L, Lymphocytes 2 L, Monocytes 4, Absolute Monocytes 0.6, Absolute Eosinophils 0.1, Absolute Basophils 0, Metamyelocytes 1, Platelet Estimate ADEQUATE, Hypochromic-Microcytic 1+, Anisocytosis 1+, PUBS MCHC 32.3 L Assessment/Plan Assessment: 61 y/o M with PMHx of seizure disorder on Dilantin, PE in 2013 on Coumadin and BPH who is admitted with symptomatic anemia, bilateral lower extremity edema and large pelvic mass extending into the abdomen. 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 Right hemicolectomy was performed for transection of ischemic bowel, however tumor resection was aborted and mass was left intact due to inability to perform radical resection of bladder. Extensive multidisciplinary discussions were initiated to transfer patient to a higher care facility for complete surgical resection, however, [facility] surgery and medical oncology feel that patient would not be suited for inpatient workup at this time. Preliminary pathology negative for malignancy in resected colon sample or 17 lymph nodes. * Oncology and general surgery following. Appreciate their recs. * Advance diet to clear liquids. * Continue IV heparin. * Zofran 4 mg IV Q6H PRN for nausea. * IV dilaudid for pain. * No plan for transfer to [facility] at this time. Patient will be discharged to [facility] and follow up with oncology and GI on discharge. * PT eval pending. * Pathology of resected tumor pending. * Patient will need repeat tissue sampling in view of negative pathology results , with sigmoidoscopy, cystoscopy and IR-guided biopsy considered as potential avenues for the biopsy. However per GI, sigmoidoscopy for biopsy would not be feasible based on the anatomy. IR-guided biopsy not an option as well per IR. * Based on pathology result, patient may be a candidate for neoadjuvant chemotherapy, which would have to be scheduled at least 4 weeks from the initial surgery. #Problems with Sanchez drainage: Secondary to large pelvic mass elevating bladder base. Per urology, it is suspected that there will be intermittent issues with Sanchez drainage until the mass is resected with reconstruction of the urinary tract. * Urology following. Appreciate their recs. * Patient may require bilateral nephrostomies to divert the urine. * Per urology, if Sanchez is not draining, advance Sanchez without deflating balloon , followed by the instillation of 60 ml of sterile water or saline, then allowing to drain passively. #Sinus tachycardia/SVT: Heart rate better-controlled after starting diltiazem. No recurrent episodes of SVT noted. * Continue diltiazem 60 mg TID. #Bilateral lower extremity edema: Likely secondary to underlying malignancy rather than decompensated CHF. ECHO with normal LVEF, no wall motion abnormalities and no evidence of pulmonary hypertension. * Cardiology following. Appreciate their recs. * Continue Lasix 20 mg IV daily. #UTI: UCx growing >100,000 colonies/ml of Providencia, sensitive to ceftriaxone and persistent mild dysuria. Hematuria likely secondary to UTI. * Continue ceftriaxone 1 g IV daily. #Anemia: Iron studies consistent with combination of iron deficiency anemia and anemia of chronic inflammation. S/p 5 units of pRBCs this admission. H/H 10.4/ 32.0 today. * Continue to monitor H/H and transfuse as needed. * EGD/colonoscopy to be performed as outpatient for evaluation of iron deficiency anemia and rectal bleeding. * Follow up with hematology as outpatient. * Continue iron sulfate 325 mg PO TID. #Loss of consciousness: Most likely represent complex partial seizures, rather than syncope. EEG normal. * Continue telemetry to monitor for arrhythmias that could be associated with lightheadedness. * Continue prior to admission phenytoin 200 mg PO BID. #Anxiety: Has been endorsing significant anxiety and sadness related to his disorder. Per psych, does not meet criteria for psychiatric disorder, with his reaction likely representing a normal response to his newly diagnosed illness. * Start sertraline 25 mg PO daily. * Consider cancer center neonatal social worker referral on discharge. Diet: Clear liquids Fluids: D5NS @ 125 cc/hr Lytes: Replete to K >4-4.5 and Mg >2 DVT PPx: IV heparin and ALPs CODE: FULL Problem List: 1. Urinary (tract) obstruction 2. Supraventricular tachycardia 3. Bilateral lower extremity edema 4. Anemia of chronic disease 5. Iron deficiency anemia 6. UTI (urinary tract infection) 7. Malignant neoplasm of appendix Pain Ratin Pain Location: Abdomen Pain Goal: Remain pain free Pain Plan: Dilaudid 1 mg IV Q4H PRN for severe pain (scale 7-10) Dilaudid 0.6 mg IV Q4H PRN for moderate pain (scale 4-6) Dilaudid 0.4 mg IV Q4H PRN for mild pain (scale 1-3) Tomorrow's Labs & Rationales: CBC to monitor WBC count in the setting of leukocytosis BMP and Mg to monitor lytes and kidney function while patient is NPO
[2016-12-31 07:47] LABS: ABSOLUTE BASOPHIL COUNT 0 /CUMM (0.0-0.2); ABSOLUTE EOSINOPHIL COUNT 0.1 /CUMM (0.0-0.7); ABSOLUTE GRANULOCYTE CT 12.4 /CUMM (1.4-6.5); ABSOLUTE LYMPH COUNT 0.4 /CUMM (1.2-3.4); ABSOLUTE MONOCYTE COUNT 0.6 /CUMM (0.10-0.60); BASOPHIL % 0.1 % (0.0-2.0); EOSINOPHIL % 0.8 % (0-5); GRANULOCYTE % 91.2 % (42.2-75.2); MEAN CORPUSCULAR HGB 27.5 PG (27.0-31.0); MEAN CORPUSCULAR HGB CONC 32.3 G/DL (33.0-37.0); MEAN CORPUSCULAR VOLUME 85.1 FL (80.0-94.0); MEAN PLATELET VOLUME 7.1 FL (7.4-10.4); PLATELET COUNT 225 /CUMM (130-400); RBC DISTRIBUTION WIDTH 17.5 % (11.5-14.5); RED BLOOD CELL CT 3.76 /CUMM (4.70-6.10); WHITE BLOOD CELL COUNT 13.6 /CUMM (4.8-10.8)
--- NOTE | 2016-12-31 07:59 | PN- Urology ---
Surgical Brief Attending Note Brief Attending Note: Patient resting comfortably Intermittent difficulty with price drainage due to large pelvic mass elevating bladder base Plan: 1. If price doesn't drain advance price without deflating balloon. Then instill 60 cc sterile water or saline and allow to drain passively
[2016-12-31 08:21] VITALS: BP 120/70
--- NOTE | 2016-12-31 08:35 | NUR ---
ERYTHEMA TO MID ABDOMINAL SURGICAL SITE, IMGE AWARE. MD WILL CALL SURGERY.
--- NOTE | 2016-12-31 09:27 | PN- General Surgery ---
Subjective Subjective: Awake, alert No specific complaints, just concerned about the plan No pain Objective Vital Signs and I&Os Vital Signs Date Time Temp Pulse Resp B/P B/P Pulse O2 O2 Flow FiO2 Mean Ox Delivery Rate 12/31 820 98.0 97 20 120/70 93 Room Air 12/31 0638 95 120/60 12/31 0102 99.1 106 18 120/60 95 Nasal 2.0L Cannula 12/31 0000 97 Nasal 1.0L Cannula 12/30 2154 109 126/70 12/30 1751 96 Nasal 1.0L Cannula 12/30 1628 126/70 12/30 1530 99.1 116 18 118/68 95 Nasal 1.0L Cannula Intake & Output 12/31 1600 12/31 0800 12/31 0000 12/30 1600 12/30 0800 12/30 0000 Intake Total 326 027 5454 800 1075 Output Total 75 50 900 240 450 Balance 125 325 150 560 625 Intake, IV 375 5658 169 1950 Intake, Oral 200 0 Intake, Other 50 Number 1 Bowel Movements Output, 90 0 Gastric Drainage Output, Urine 75 50 900 150 450 Patient 212 lb 206 lb Weight Weight Standing Scale Standing Scale Measurement Method Physical Exam: vss, afebrile +flatus General: alert and oriented times three Abd: soft, hypoactive bs, nondistended Wound: everardo look good, no drainage or erythema - there are some skin blisters from tape alongside the lower wound on both sides Assessment/Plan Assessment/Plan 61 yo male s/p ex lap, R colectomy with tumor invading the bladder Further plan is being discussed with surgery/oncology/medicine - further recommendations to follow Start clear liquids at this time Pain management Keep price
[2016-12-31] MEDS ORDERED: SERTRALINE HCL25 MG PO (10:52)
--- NOTE | 2016-12-31 10:55 | Patient Discharge Instructions ---
Discharge Instructions General Discharge Information You were seen/treated for: abdominal Mass anemia Possible intra-abdominal abscess JUAN Special Instructions: -You are being transferred to [facility] for higher level of care. -Please follow-up with your neurologist 7 days after discharge. -Please follow-up with your primary care provider within 7 days after discharge. -Please follow-up with your plan coordinator 7 days after discharge. -Please follow-up with your surgeon 7 days after discharge. -Please follow-up with your urologist 7 days after discharge. -Please follow-up with your psychiatrist 7 days after discharge. -Please follow-up with [facility] oncology service after discharge. -We have made changes to your home medications, please read the instructions carefully. -Please come back to the hospital if your symptoms got worse. Diet Recommended Diet: NPO Activity Full Activity/No Limits: Yes (as tolerated) Acute Coronary Syndrome Inclusion Criteria At DC or during hospital stay patient has or had the following: ACS DIAGNOSIS No Discharge Core Measures Meds if any: Prescribed or Continued at Discharge Meds if any: NOT Prescribed or Continued at Discharge Congestive Heart Failure Inclusion Criteria At DC or during hospital stay patient has or had the following: CHF DIAGNOSIS No Discharge Core Measures Meds if any: Prescribed or Continued at Discharge Meds if any: NOT Prescribed or Continued at Discharge Cerebrovascular accident Inclusion Criteria At DC or during hospital stay patient has or had the following: CVA/TIA Diagnosis No Discharge Core Measures Meds if any: Prescribed or Continued at Discharge Meds if any: NOT Prescribed or Continued at Discharge Venous thromboembolism Inclusion Criteria VTE Diagnosis No VTE Type NONE VTE Confirmed by (Test) NONE Discharge Core Measures - Per Current guidelines, there needs to be overlap - treatment for the first 5 days of Warfarin therapy. - If discharged on Warfarin prior to 5 days of - overlap therapy, the patient will need to be - assessed for post discharge needs including - *Post discharge parental anticoagulation - *Warfarin and/or parental anticoagulation education - *Follow up date to check INR post discharge At least 5 days overlap therapy as Inpatient No Meds if any: Prescribed or Continued at Discharge Note: Overlap Therapy is Warfarin and Anticoagulant Meds if any: NOT Prescribed or Continued at Discharge
--- NOTE | 2016-12-31 11:47 | PN- Oncology ---
Subjective Subjective: He continues to report abdominal pain which he describes as burning. He also note some leakage of his urine with burning sensation also. Prelim on the pathology is negative for malignancy with negative 17 lymph nodes. Review of Systems Constitutional: Denies: chills, fever. Cardiovascular: Denies: chest pain. Respiratory: Denies: short of breath. Gastrointestinal: Reports: abdominal pain, diarrhea. Genitourinary: Reports: dysuria, pain, urgency. All Other Systems: Reviewed and Negative Objective Vital Signs and I&Os Vital Signs Date Time Temp Pulse Resp B/P B/P Pulse O2 O2 Flow FiO2 Mean Ox Delivery Rate 12/31 0821 98.0 97 20 120/70 93 Room Air 12/31 0638 95 120/60 12/31 0102 99.1 106 18 120/60 95 Nasal 2.0L Cannula 12/31 0000 97 Nasal 1.0L Cannula 12/30 2154 109 126/70 12/30 1751 96 Nasal 1.0L Cannula 12/30 1628 126/70 12/30 1530 99.1 116 18 118/68 95 Nasal 1.0L Cannula 12/30 1202 130/62 12/30 0900 99.0 113 20 126/80 94 Nasal 1.0L Cannula 12/30 0850 95 Nasal 1.0L Cannula Intake & Output 12/31 1600 12/31 0800 12/31 0000 12/30 1600 12/30 0800 12/30 0000 Intake Total 725 974 0081 800 1075 Output Total 75 50 900 240 450 Balance 125 325 150 560 625 Intake, IV 375 2993 814 1310 Intake, Oral 200 0 Intake, Other 50 Number 1 Bowel Movements Output, 90 0 Gastric Drainage Output, Urine 75 50 900 150 450 Patient 95.935 kg 93.44 kg Weight Weight Standing Scale Standing Scale Measurement Method Physical Exam General Appearance: alert, awake, comfortable Ears, Nose, Throat: normal pharynx Respiratory: normal breath sounds, chest non-tender, no respiratory distress Cardiovascular: tachycardia Abdomen: normal bowel sounds, tenderness (incision site and suprapubic) Extremities: BLE edema 2+ R>L Skin: intact (abdominal dressing intact) Current Medications: Current Medications Sig/Ghulam Start time Last Medication Dose Route Stop Time Status Admin Adenosine 6 MG ONCE ONE 12/30 914 CAN IV 12/31 915 Benzocaine/Menthol 1 ERICK Q2P PRN 12/29 1330 AC PO Ceftriaxone Sodium 1,000 MG 22012/25 2200 AC 12/30 IV 2153 Dextrose/Sodium 1,000 ML Q8H 12/28 214 AC 12/31 Chloride IV 0427 Diltiazem HCl 60 MG Q8 12/30 1400 AC 12/31 PO 0638 Furosemide 20 MG DAILY 12/29 1609 AC 12/31 IV 0834 Heparin Sodium 5,000 UNIT Q8 12/30 0600 AC 12/31 (Porcine) SC 0638 Hydromorphone HCl 0.4 MG Q4P PRN 12/28 214 AC 12/31 IV 0829 Hydromorphone HCl 0.6 MG Q4P PRN 12/28 2145 AC 12/29 IV 1832 Hydromorphone HCl 1 MG Q4P PRN 12/28 214 IV Magnesium Sulfate 1 GM Q2H 12/30 0930 DC 12/30 Dextrose/Water 100 ML IV 12/30 1329 1207 Metoprolol Tartrate 6.25 MG BID 12/30 1015 DC 12/30 PO 1202 Ondansetron HCl 4 MG Q6P PRN 12/28 214 AC IV Pantoprazole Sodium 40 MG DAILY 12/28 2230 AC 12/31 IV 0834 Phenytoin 200 MG BID 12/30 2200 AC 12/31 PO 0834 Phenytoin 200 MG Q12H 12/29 1200 DC 12/30 Sodium Chloride 50 ML IV 1205 Potassium Chloride 80 MEQ ONCE ONE 12/30 0930 DC 12/30 PO 12/30 0931 0950 Results Last 24 Hours of Lab Results: Laboratory Tests 12/31 0652 Chemistry Sodium (137 - 145 mmol/L) 139 Potassium (3.5 - 5.1 mmol/L) 3.5 Chloride (98 - 107 mmol/L) 107 Carbon Dioxide (22 - 30 mmol/L) 24 Anion Gap (5 - 16) 7 BUN (9 - 20 mg/dL) 15 Creatinine (0.7 - 1.2 mg/dL) 0.8 Estimated GFR (>60 ml/min) > 60 BUN/Creatinine Ratio (7 - 25 %) 18.8 Magnesium (1.6 - 2.3 mg/dL) 1.8 Hematology CBC w Diff Pending WBC Pending RBC Pending Hgb Pending Hct Pending MCV Pending MCH Pending RDW Pending Plt Count Pending MPV Pending Gran % Pending Lymphocytes % Pending Monocytes % Pending Eosinophils % Pending Basophils % Pending Absolute Granulocytes Pending Absolute Lymphocytes Pending Absolute Monocytes Pending Absolute Eosinophils Pending Absolute Basophils Pending PUBS MCHC Pending Assessment/Plan Assessment/Recommendations: Mr. Carrion is a 61-year-old male with history of seizure, PE, abdominal mass in 2014 who presents with symptomatic anemia. Imaging demonstrated a pelvic mass with possible communication with bowel but no definite with bladder. He was taken to OR on 12/28 for exploratory laparoscopy by Dr. Proctor. Per Dr. 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 Dr. Proctor did resect ischemic portion of the ileum and cecum. The mass was left intact. Due to the adherence to the bladder, Dr. Proctor has recommended transfer to higher facility for complete surgical resection. Transfer to [facility] was discussed but was placed on hold due to concern on whether patient would benefit from chemotherapy with radiation prior to surgery. Prelim path demonstrated no evidence of malignancy in colon sample or 17 lymph nodes. Given the negative finding, he will need repeat tissue sampling. One option would be consideration with GI on sigmoidoscopy for evaluation with potential biopsy from this avenue. Another option would be repeat cystoscopy with biopsy of bladder mass/tumor. IR guided biopsy would be another option. Pending pathology result, he may be a candidate for chemotherapy preoperatively. This would have to wait until he is at least 4 weeks out from surgery. 1. Follow up pathology on resected sample 2. Consider GI evaluation for sigmoidoscopy for biopsy 3. Consider IR for imaging guided biopsy 4. Will need discussion with tumor board regarding recommendations on surgery and chemotherapy Please call [phone] with any questions. Problem List: 1. Abdominal mass 2. Symptomatic anemia 3. Anemia of chronic disease
--- NOTE | 2016-12-31 13:13 | PN- General Surgery ---
See Addendum Surgical Brief Attending Note Brief Attending Note: Patient recovering as expected. I re-discussed patient with [facility]. They do not feel that inpatient workup is appropriate, especially in light of his uneventful recovery. The oncologist I spoke to gave me his email address to get patient in outpatient clinic visit next week. [email or web address] access attendant stated that if we still feel the need for tranfer, that the [facility] would be the best avenue. I will defer that decision to the primary team. I am on vacation today and will be away tomorrow as well.
--- NOTE | 2016-12-31 14:29 | PN- Student ---
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 The patient is now POD3 from exploratory laparotomy with right hemicolectomy, resection of terminal ileum, and aborted attempt at tumor resection. He is complaining of occasional abdominal pain, which is really only present during movement. His NGT was removed yesteray and he was allowed ice chips and sips of water with medication, which he has enjoyed. He denies N/V. He admits to passing flatus and has several recorded BMs. He talked to psychiatry yesterday and felt that the discussion calmed him. He has agreed to try taking Zoloft as recommended by psych. His only curret complaints are related to urinary pain. His urinary catheter has been irrigated numerous times and urine output remains low, likely d/t tumor compression of urinary anatomy. There were no events overnight. Current Medications Sig/Ghulam Start time Last Medication Dose Route Stop Time Status Admin Benzocaine/Menthol 1 ERICK Q2P PRN 12/29 1330 AC PO Ceftriaxone Sodium 1,000 MG 12/250 AC 12/30 IV 2153 Dextrose/Sodium 1,000 ML Q8H 12/28 214 AC 12/31 Chloride IV 1333 Diltiazem HCl 60 MG Q8 12/30 1400 AC 12/31 PO 1335 Furosemide 20 MG DAILY 12/29 1609 AC 12/31 IV 0834 Heparin Sodium 5,000 UNIT Q8 12/30 0600 AC 12/31 (Porcine) SC 1334 Hydromorphone HCl 0.4 MG Q4P PRN 12/28 2145 AC 12/31 IV 0829 Hydromorphone HCl 0.6 MG Q4P PRN 12/28 2145 AC 12/29 IV 1832 Hydromorphone HCl 1 MG Q4P PRN 12/28 2145 AC IV Magnesium Sulfate 1 GM ONCE ONE 12/31 1115 AC Dextrose/Water 100 ML IV 12/31 1514 Ondansetron HCl 4 MG Q6P PRN 12/28 2145 AC IV Pantoprazole Sodium 40 MG DAILY 12/28 2230 AC 12/31 IV 0834 Phenytoin 200 MG BID 12/30 2200 AC 12/31 PO 0834 Phenytoin 200 MG Q12H 12/29 1200 DC 12/30 Sodium Chloride 50 ML IV 1205 Potassium Chloride 10 MEQ Q1H 12/31 1115 DC 12/31 IV 12/31 1216 1332 Sertraline HCl 25 MG DAILY 12/31 1000 AC 12/31 PO 01/02 1001 1156 Objective Objective: Vital Signs Date Time Temp Pulse Resp B/P B/P Pulse O2 O2 Flow FiO2 Mean Ox Delivery Rate 12/31 1335 105 132/88 12/31 0821 98.0 97 20 120/70 93 Room Air 12/31 0638 95 120/60 12/31 0102 99.1 106 18 120/60 95 Nasal 2.0L Cannula 12/31 0000 97 Nasal 1.0L Cannula 12/30 2154 109 126/70 12/30 1751 96 Nasal 1.0L Cannula 12/30 1628 126/70 12/30 1530 99.1 116 18 118/68 95 Nasal 1.0L Cannula Intake & Output 12/31 1600 12/31 0800 12/31 0000 Intake Total 200 375 Output Total 75 50 Balance 125 325 Intake, IV 375 Intake, Oral 200 Number 1 Bowel Movements Output, Urine 75 50 Patient 212 lb Weight Weight Standing Scale Measurement Method Telemetry Monitoring: NSR, rate 95 - 99 bpm; some PVCs General: A&Ox3, comfortable HEENT: atraumatic, dry mucosa CV: RRR, no murmurs Pulmonary: CTA bilaterally, normal air movement GI: abdomen mildly distended, soft. Tender to palpation in mid to lower abdomen. Surgical dressing intact. Inferior incision with erythema, appears to be allergic reaction to dressing. Dressing changed per surgery. : urinary catheter in place, output low. urine dark. Extremities: skin dry. 2+ pitting edema to knees Results Results: Laboratory Tests 12/31/16 0652: Anion Gap 7, Estimated GFR > 60, BUN/Creatinine Ratio 18.8, Magnesium 1.8, CBC w Diff MAN DIFF ORDERED, RBC 3.76 L, MCV 85.1, MCH 27.5, RDW 17.5 H, MPV 7.1 L, Gran % 91.2 H, Lymphocytes % 3.1 L, Monocytes % 4.8, Eosinophils % 0.8, Basophils % 0.1, Absolute Granulocytes 12.4 H, Segmented Neutrophils 76 H, Band Neutrophils 17 H, Absolute Lymphocytes 0.4 L, Lymphocytes 2 L, Monocytes 4, Absolute Monocytes 0.6, Absolute Eosinophils 0.1, Absolute Basophils 0, Metamyelocytes 1, Platelet Estimate ADEQUATE, Hypochromic-Microcytic 1+, Anisocytosis 1+, PUBS MCHC 32.3 L Assessment/Plan Assessment: Dale Carrion is a 61yo M with PMH of epilepsy 2/2 encephalitis, PE, and abdominal pain who is POD3 s/p exploratory laparotomy, right hemicolectomy, resection of terminal ileum, and aborted attempt at tumor resection for suspected mucinous malignancy. 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 Multidisciplinary discussion of recovery with outpatient referral to [facility] vs. transfer to [facility] for quicker definitive surgical management. * GI, urology, heme/onc, general surgery following * Plan for definitive management? * Followup surgical pathology * ?sigmoidoscopy with tissue sample vs. IR biopsy for tissue sample * NGT removed, advance to clear liquids as tolerated * Convert to po meds * GI prophylaxis * OOB, IS Anemia: 5u pRBCs transfused on this admission. H&H stabilizing. * Hematology following, recommendations * Monitor H&H closely * Iron Sulfate 325mg TID when stable UTI: continuing treatment with IV ceftriaxone. Urine output has been low, despite many attempts at irrigation and adequate IV hydration. * continue ceftriaxone * urology following and recommendations * ?need for nephrostomy tubes if surgical management not imminent * irrigate price as needed * Strict I&O History of PE: outpatient warfarin held, IV heparin held d/t surgical intervention. on HSQ for DVT prophylaxis * continue HSQ * ALPs * IV heparin when okay with surgery * OOB, ambulate Epilepsy 2/2 encephalitis: Dilantin converted to IV after surgery. Now able to take PO * Switch back to po Dilantin per outpatient regimen Tachycardia: started Cardizem 60 mg po q8h yesterday, exhibiting better rate control. No complaints of chest pain or dyspnea. * Cardiology following, recommendations * continue Cardizem * continue telemetry monitoring * Monitor BMP with repletion of potassium, magnesium as needed Adjustment Disorder with Depression/Anxiety symptoms: Discussed multiple life stressors and feelings of being overwhelmed with psych yesterday. Feels more relaxed today. Agreed to trial Zoloft 25mg x3 days, then 50mg after. Patient does not want this aspect of his care discussed with family. * Zoloft as described * Encouraged patient to consider cancer counseling Code Status: Full Diet: clear liquids DVT prophylaxis: HSQ and ALPs
[2016-12-31 16:00] VITALS: BP 128/82
[2016-12-31 18:45] LABS: PT 12.9 SEC (9.4-12.5)
[2016-12-31 23:16] LABS: PTT 47 SEC (25-37)
[2017-01-01 00:20] VITALS: BP 130/84
--- NOTE | 2017-01-01 07:04 | PN- Housestaff ---
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 Patient seen and examined this morning. He endorses abdominal discomfort which he describes as a burning sensation when he urinates. He has been tolerating clear liquid diet without nausea or vomiting. Review of Systems Constitutional: Reports: see HPI. Objective Last 24 Hrs of Vital Signs/I&O Vital Signs Date Time Temp Pulse Resp B/P B/P Pulse O2 O2 Flow FiO2 Mean Ox Delivery Rate 01/01 1558 99.7 117 20 136/84 91 Room Air 01/01 1358 98.8 98 16 124/90 01/01 0800 98.8 98 16 124/90 92 Room Air 01/01 0639 96 130/84 01/01 0020 99.1 101 18 130/84 93 Room Air / 0000 96 Room Air 12/31 2159 97 124/64 Intake & Output 01/01 1600 01/01 0800 01/01 0000 Intake Total 2064 1416 513 Output Total 100 Balance 1964 1416 513 Intake, IV 1264 1216 453 Intake, Oral 800 200 60 Number 1 Bowel Movements Output, Urine 100 Patient 70.307 kg Weight Weight Standing Scale Measurement Method Physical Exam General Appearance: Alert, Oriented X3, No Acute Distress HEENT: Atraumatic, Mucous Membr. moist/pink Neck: Supple Cardiovascular: Regular Rate, Normal S1, Normal S2, No Murmurs, Gallops, Rubs Lungs: Clear to Auscultation Abdomen: Soft, Tender to Palpation, Positive Bowel Sounds Extremities: No Clubbing, No Cyanosis, Bilateral Lower Extremities with 2+ Pitting Edema Current Medications: Current Medications Sig/Ghulam Start time Last Medication Dose Route Stop Time Status Admin Benzocaine/Menthol 1 ERICK Q2P PRN 12/29 1330 AC PO Ceftriaxone Sodium 1,000 MG 12/25 2200 AC 12/31 IV 2158 Dextrose/Sodium 1,000 ML Q8H 12/28 2145 AC 01/01 Chloride IV 0942 Diltiazem HCl 60 MG Q8 12/30 1400 AC 05 PO 1358 Furosemide 20 MG DAILY 12/29 1609 AC 01/01 IV 0928 Heparin Sodium 5,000 UNIT .STK-MED ONE 01/01 0027 DC (Porcine) IV 01/01 0028 Heparin Sodium 3,837 UNIT ONCE ONE 01/01 0020 DC 01/01 (Porcine) IV 01/01 0021 0020 Heparin Sodium 25,000 UNIT Q24H 12/31 1445 AC 01/01 (Porcine) IV 0927 Sodium Chloride 500 ML Hydromorphone HCl 0.4 MG Q4P PRN 12/28 2144 AC 01/01 IV 1537 Hydromorphone HCl 0.6 MG Q4P PRN 12/28 214 AC 12/29 IV 1832 Hydromorphone HCl 1 MG Q4P PRN 12/28 214 AC IV Magnesium Sulfate 1 GM ONCE ONE 01/01 09 DC 01/01 Dextrose/Water 100 ML IV 01/01 1314 0944 Ondansetron HCl 4 MG Q6P PRN 12/28 2144 AC IV Pantoprazole Sodium 40 MG DAILY 12/28 2230 AC 01/01 IV 0928 Phenytoin 200 MG BID 12/30 2200 AC 01/01 PO 0928 Potassium Chloride 10 MEQ Q1H 01/01 915 DC 01/01 IV 01/01 1016 1642 Sertraline HCl 25 MG DAILY 12/31 1000 AC 01/01 PO 01/02 1001 0928 Warfarin Sodium 7.5 MG COUMADIN 1700 ONE 01/01 1700 DC 01/01 PO 01/01 1701 1641 Last 24 Hrs of Lab/Yuri Results Last 24 Hrs of Labs/Mics: Laboratory Tests 01/01/17 1525: APTT 42 H 01/01/17 0625: PT 14.7 H, INR 1.40 H 01/01/17 0625: Anion Gap 8, Estimated GFR > 60, BUN/Creatinine Ratio 16.3, Magnesium 1.8, APTT 45 H, CBC w Diff NO MAN DIFF REQ, RBC 3.71 L, MCV 85.4, MCH 27.5, RDW 17.9 H, MPV 7.7, Gran % 86.5 H, Lymphocytes % 6.5 L, Monocytes % 6.5, Eosinophils % 0.2, Basophils % 0.3, Absolute Granulocytes 9.3 H, Absolute Lymphocytes 0.7 L, Absolute Monocytes 0.7 H, Absolute Eosinophils 0, Absolute Basophils 0, PUBS MCHC 32.2 L 12/31/16 2254: APTT 47 H 12/31/16 1800: PT 12.9 H, INR 1.23 H Assessment/Plan Assessment: 61 y/o M with PMHx of seizure disorder on Dilantin, PE in 2013 on Coumadin and BPH who is admitted with symptomatic anemia, bilateral lower extremity edema and large pelvic mass s/p exploratory laparatomy revealing 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 Right hemicolectomy was performed for transection of ischemic bowel, however tumor resection was aborted and mass was left intact due to inability to perform radical resection of bladder. Extensive multidisciplinary discussions were initiated to transfer patient to a [facility] care facility for complete surgical resection, however, [facility] and medical oncology feel that patient would not be suited for inpatient workup at this time. Preliminary pathology negative for malignancy in resected colon sample or 17 lymph nodes. Patient will need repeat tissue sampling in view of negative pathology results, with sigmoidoscopy, cystoscopy and IR-guided biopsy considered as potential avenues for the biopsy. However per GI, sigmoidoscopy for biopsy would not be feasible based on the anatomy. Per IR, needle biopsy cannot be performed as well due to potential seeding of the peritoneum. Urology has previously stated that patient needs to be transferred to [facility] care facility for radical resection of the bladder. Per oncology, it is questionable whether patient would benefit from chemotherapy or radiation therapy given lack of tissue diagnosis as well as mucinous nature of tumor. * Oncology and general surgery following. Appreciate their recs. * Continue clear liquid diet. * Zofran 4 mg IV Q6H PRN for nausea. * IV dilaudid for pain. * No plan for transfer to [facility] at this time. Patient will be discharged to [facility]. * Refer to [facility] surgical oncology on discharge (Dr. Asher or Dr. Arriola). * Await ongoing tumor board discussions regarding treatment recommendations. #History of PE: Diagnosed in 2013. Patient was on warfarin [id number]. Currently on IV heparin bridge to warfarin. INR 1.40 today. * Continue IV heparin. * Administer 7.5 mg of warfarin today. #Problems with Sanchez drainage: Secondary to large pelvic mass elevating bladder base. Per urology, it is suspected that there will be intermittent issues with Sanchez drainage until the mass is resected with reconstruction of the urinary tract. * Urology following. Appreciate their recs. * Patient may require bilateral nephrostomies to divert the urine. * Per urology, if Sanchez is not draining, advance Sanchez without deflating balloon , followed by the instillation of 60 ml of sterile water or saline, then allowing to drain passively. #Sinus tachycardia/SVT: Heart rate better-controlled after starting diltiazem. No recurrent episodes of SVT noted. * Continue diltiazem 60 mg TID. #Bilateral lower extremity edema: Likely secondary to underlying malignancy rather than decompensated CHF. ECHO with normal LVEF, no wall motion abnormalities and no evidence of pulmonary hypertension. * Cardiology following. Appreciate their recs. * Continue Lasix 20 mg IV daily. #UTI: UCx growing >100,000 colonies/ml of Providencia, sensitive to ceftriaxone and persistent mild dysuria. * Continue ceftriaxone 1 g IV daily. #Anemia: Iron studies consistent with combination of iron deficiency anemia and anemia of chronic inflammation. S/p 5 units of pRBCs this admission. H/H currently stable. * Continue to monitor H/H. * EGD/colonoscopy to be performed as outpatient for evaluation of iron deficiency anemia and rectal bleeding. * Follow up with hematology as outpatient. * Continue iron sulfate 325 mg PO TID. #Loss of consciousness: Most likely represent complex partial seizures, rather than syncope. EEG normal. * Continue telemetry to monitor for arrhythmias that could be associated with lightheadedness. * Continue prior to admission phenytoin 200 mg PO BID. #Anxiety: Has been endorsing significant anxiety and sadness related to his disorder. Per psych, does not meet criteria for psychiatric disorder, with his reaction likely representing a normal response to his newly diagnosed illness. * Continue sertraline 25 mg PO daily with plans to increase to 50 mg PO daily after 3 days. * Consider cancer center social services technician referral on discharge. Diet: Clear liquids Fluids: D5NS @ 75 cc/hr Lytes: Replete to K >4-4.5 and Mg >2 DVT PPx: IV heparin bridge to warfarin and ALPs CODE: FULL Problem List: 1. Sinus tachycardia 2. Anxiety 3. Supraventricular tachycardia 4. Tachycardia 5. Pelvic neoplasm 6. Anemia of chronic disease 7. History of pulmonary embolism 8. Abdominal mass 9. Iron deficiency anemia 10. Urinary (tract) obstruction 11. Bilateral lower extremity edema 12. UTI (urinary tract infection) Pain Ratin Pain Location: Abdomen Pain Goal: Remain pain free Pain Plan: Dilaudid 1 mg IV Q4H PRN for severe pain (scale 7-10) Dilaudid 0.6 mg IV Q4H PRN for moderate pain (scale 4-6) Dilaudid 0.4 mg IV Q4H PRN for mild pain (scale 1-3) Tomorrow's Labs & Rationales: CBC to monitor WBC count in the setting of leukocytosis BMP to monitor lytes and kidney function in the setting of hypokalemia and hypomagnesemia INR in the setting of warfarin therapy
[2017-01-01 07:47] LABS: ABSOLUTE BASOPHIL COUNT 0 /CUMM (0.0-0.2); ABSOLUTE EOSINOPHIL COUNT 0 /CUMM (0.0-0.7); ABSOLUTE GRANULOCYTE CT 9.3 /CUMM (1.4-6.5); ABSOLUTE LYMPH COUNT 0.7 /CUMM (1.2-3.4); ABSOLUTE MONOCYTE COUNT 0.7 /CUMM (0.10-0.60); BASOPHIL % 0.3 % (0.0-2.0); EOSINOPHIL % 0.2 % (0-5); HEMATOCRIT 31.7 % (42-52); MEAN CORPUSCULAR HGB 27.5 PG (27.0-31.0); MEAN CORPUSCULAR HGB CONC 32.2 G/DL (33.0-37.0); MEAN CORPUSCULAR VOLUME 85.4 FL (80.0-94.0); MEAN PLATELET VOLUME 7.7 FL (7.4-10.4); PLATELET COUNT 214 /CUMM (130-400); RBC DISTRIBUTION WIDTH 17.9 % (11.5-14.5); RED BLOOD CELL CT 3.71 /CUMM (4.70-6.10); WHITE BLOOD CELL COUNT 10.8 /CUMM (4.8-10.8)
--- NOTE | 2017-01-01 07:50 | PN- Cardiology ---
Subjective Subjective: * Breathing is improved. No palpitations or lightheadedness. * sinus tachycardia Objective Vital Signs and I&Os Vital Signs Date Time Temp Pulse Resp B/P B/P Pulse O2 O2 Flow FiO2 Mean Ox Delivery Rate 01/01 0639 96 130/84 05/ 0020 99.1 101 18 130/84 93 Room Air 05 0000 96 Room Air 12/31 2159 97 124/64 12/31 1600 99.4 109 20 128/82 95 Room Air 12/31 1426 Room Air 2.0L 12/31 1335 105 132/88 / 0821 98.0 97 20 120/70 93 Room Air Intake & Output 01/01 0800 01/01 0000 / 1600 12/31 0800 12/31 0000 12/30 1600 Intake Total 513 190 146 0696 Output Total 75 50 900 Balance 513 125 325 150 Intake, IV 049 371 5303 Intake, Oral 60 200 Intake, Other 50 Number 1 Bowel Movements Output, Urine 75 50 900 Patient 155 lb 212 lb Weight Weight Standing Scale Standing Scale Measurement Method Physical Exam: General: WD/ overweigth male in NAD; alert and oriented x 3 Neck: no JVD, no carotid bruit Heart: RRR w/o murmur Lungs: clear bilaterally Abdomen: soft, tender Extremities: 2+ bilateral leg edema Assessment/Plan Assessment/Plan * This patient has edema that is likely related to a malignancy rather than decompensated CHF. His EF is normal and he has normal pulmonary pressures. In addition, this patient is active at his baseline without symptoms of ischemia. His ECG does not show any ischemic changes. He has tolerated his surgery well. Continue to monitor on telemetry to assess for any dysrhythmia that may be associated with his lightheadedness. I think it is most likely that his falls and LOC were related to seizures however. * Replete the patient's potassium to 4-4.5. * Leg swelling: Change Lasix to 40mg PO daily. * SVT noted on telemetry along with intermittent sinus tachycardia. This has improved. Increase Cardizem to to 120mg BID. Continue telemetry? Yes
[2017-01-01 08:00] VITALS: BP 124/90
[2017-01-01 08:24] LABS: PT 14.7 SEC (9.4-12.5)
[2017-01-01 08:26] LABS: PTT 45 SEC (25-37)
[2017-01-01 08:53] LABS: GRANULOCYTE % 86.5 % (42.2-75.2)
--- NOTE | 2017-01-01 09:00 | PN- Student ---
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 There were no overnight events. This morning the patient says he is "doing much better." He is requesting real food, stating that he is able to tolerate the CLD but wants toast. He endorses weakness and abdominal pain with moving, but is otherwise comfortable. He denies headache, chest pain, shortness of breath, nausea, vomiting, or generalized pain. Current Medications Sig/Ghulam Start time Last Medication Dose Route Stop Time Status Admin Benzocaine/Menthol 1 ERICK Q2P PRN 12/29 1330 AC PO Ceftriaxone Sodium 1,000 MG 0 12/25 2200 AC 12/31 IV 2158 Dextrose/Sodium 1,000 ML Q8H 12/28 2145 AC 01/01 Chloride IV 0257 Diltiazem HCl 60 MG Q8 12/30 1400 AC 01/01 PO 0639 Furosemide 20 MG DAILY 12/29 1609 AC 12/31 IV 0834 Heparin Sodium 5,000 UNIT .STK-MED ONE 01/01 0027 DC (Porcine) IV 01/01 0028 Heparin Sodium 3,837 UNIT ONCE ONE 01/01 0020 DC 01/01 (Porcine) IV 01/01 0021 0020 Heparin Sodium 25,000 UNIT Q24H 12/31 1445 AC 12/31 (Porcine) IV 1552 Sodium Chloride 500 ML Heparin Sodium 5,000 UNIT Q8 12/30 0600 DC 12/31 (Porcine) SC 1334 Hydromorphone HCl 0.4 MG Q4P PRN 12/28 2145 AC 01/01 IV 0440 Hydromorphone HCl 0.6 MG Q4P PRN 12/28 2145 AC 12/29 IV 1832 Hydromorphone HCl 1 MG Q4P PRN 12/28 2145 AC IV Magnesium Sulfate 1 GM ONCE ONE 12/31 1115 DC 12/31 Dextrose/Water 100 ML IV 12/31 1514 1300 Ondansetron HCl 4 MG Q6P PRN 12/28 2145 AC IV Pantoprazole Sodium 40 MG DAILY 12/28 2230 AC 12/31 IV 0834 Phenytoin 200 MG BID 12/30 2200 AC 12/31 PO 2158 Potassium Chloride 10 MEQ Q1H 12/31 1115 DC 12/31 IV 12/31 1216 1528 Sertraline HCl 25 MG DAILY 12/31 1000 AC 12/31 PO 01/02 1001 1156 Warfarin Sodium 7.5 MG COUMADIN 1700 ONE 12/31 1700 DC 12/31 PO 12/31 1701 1701 Objective Objective: Vital Signs Date Time Temp Pulse Resp B/P B/P Pulse O2 O2 Flow FiO2 Mean Ox Delivery Rate 01/01 0639 96 130/84 01/01 0020 99.1 101 18 130/84 93 Room Air 01/01 0000 96 Room Air 12/31 2159 97 124/64 12/31 1600 99.4 109 20 128/82 95 Room Air 12/31 1426 Room Air 2.0L 12/31 1335 105 132/88 Intake & Output 01/01 1600 01/01 0800 01/01 0000 Intake Total 1416 513 Output Total Balance 1416 513 Intake, IV 1216 453 Intake, Oral 200 60 Patient 155 lb Weight Weight Standing Scale Measurement Method Telemetry Monitoring: sinus rhythm, rate 93 - 100 bpm; frequent PVCs Gen: comfortable, A&Ox3 HEENT: atraumatic, mucosa moist CV: tachycardic, regular, no murmurs Pulmonary: CTA with normal air movement GI: abdomen soft, distended. Tender in mid and lower abdomen. Midline incision healing well. Dressing C/D/I. Allergic reaction to former dressing material noted near inferior incision : urinary catheter in place, urine dark Extremities: skin is dry, 2+ pitting edema of BLE Results Results: Laboratory Tests 01/01/17 0625: PT 14.7 H, INR 1.40 H 01/01/17 0625: Anion Gap 8, Estimated GFR > 60, BUN/Creatinine Ratio 16.3, Magnesium 1.8, APTT 45 H, CBC w Diff Pending, WBC Pending, RBC Pending, Hgb Pending, Hct Pending, MCV Pending, MCH Pending, RDW Pending, Plt Count Pending, MPV Pending, Gran % Pending, Lymphocytes % Pending, Monocytes % Pending, Eosinophils % Pending, Basophils % Pending, Absolute Granulocytes Pending, Absolute Lymphocytes Pending , Absolute Monocytes Pending, Absolute Eosinophils Pending, Absolute Basophils Pending, PUBS MCHC Pending Assessment/Plan Assessment: Dale Carrion is a 61yoM with 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 Urine cytology atypical, but not definitive. No tissue biopsy available. Per GI, IR, and urology, different methods of tissue biopsy were felt to be non-advisable in this patient. Will likely be referred to surgical oncology at [facility] as outpatient for further definitive management. * GI, Urology, Gen Surgery, Heme/Onc following, recommendations * Multi-disciplinary discussion on future care * Advance diet as tolerated, currently on CLD per surgery * GI prophylaxis with Protonix 40 mg IV * PO meds where applicable * OOB, ambulate, IS Anemia: H&H stablizing. No acute s/s of anemia. 5u pRBCs transfused total on this admission. * Daily CBC * transfuse to keep H&H >7 * Heme/Onc following, recommendations * Iron Sulfate 325mg TID per heme/onc UTI: treated with ceftriaxone 1000mg IV daily. Complicated by likely tumor invasion into bladder wall with distortion of urinary anatomy and obstruction of outflow. * Urology following, recommendations * continue ceftriaxone * irrigate catheter as needed * Strict I&O PE: IV heparin and po warfarin resumed on 12/31. * continue IV heparin bridge * contine warfarin po * PT, INR monitoring * bleeding precautions Tachycardia: resolving with Cardizem 60mg po q8h. 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 * continue PO Dilantin Adjustment disorder with depressed mood/anxiety: Started Zoloft 25mg on 12/31. Will increase to 50mg on 01/02. * Zoloft as described Disposition: patient has numerous factors to consider, including urinary catheter, anticoagulation, weakness, BLE edema, recent surgery, lack of support at home. Pt initially resistant to rehabilitation facility, but upon further discussion he has agreed that this is the best option for him at present. Is willing to go to rehab facility when stable/placement achieved. Outpatient referral to surg onc at [facility]. Code Status: Full Diet: CLD DVT prophylaxis: ALPs, IV heparin gtt bridge to warfarin po
--- NOTE | 2017-01-01 09:17 | PN- Oncology ---
Subjective Subjective: He continues to have abdominal pain especially with moving. He has some burning sensation with urge to urinate. He has no fever or chills. He is tolerating clear diet. Review of Systems: Constitutional: Denies: chills, fever. Cardiovascular: Denies: chest pain. Respiratory: Denies: short of breath. Gastrointestinal: Reports: abdominal pain, diarrhea. Genitourinary: Reports: dysuria, pain. All Other Systems: Reviewed and Negative Objective Vital Signs and I&Os Vital Signs Date Time Temp Pulse Resp B/P B/P Pulse O2 O2 Flow FiO2 Mean Ox Delivery Rate 01/01 0639 96 130/84 01/01 0020 99.1 101 18 130/84 93 Room Air 01/01 0000 96 Room Air 12/31 2159 97 124/64 12/31 1600 99.4 109 20 128/82 95 Room Air 12/31 1426 Room Air 2.0L 12/31 1335 105 132/88 Intake & Output 01/01 1600 01/01 0800 01/01 0000 12/31 1600 12/31 0800 12/31 0000 Intake Total 1416 513 200 375 Output Total 75 50 Balance 1416 513 125 325 Intake, IV 1216 453 375 Intake, Oral 200 60 200 Number 1 Bowel Movements Output, Urine 75 50 Patient 70.307 kg 95.935 kg Weight Weight Standing Scale Standing Scale Measurement Method Physical Exam: General Appearance: alert, awake, comfortable Ears, Nose, Throat: normal pharynx Respiratory: normal breath sounds, chest non-tender, no respiratory distress Cardiovascular: tachycardia Abdomen: normal bowel sounds, tenderness (incision site and suprapubic) Extremities: BLE edema 2+ R>L Skin: intact (abdominal dressing intact), bruising with ecchymoses most in left hand. Current Medications: Current Medications Sig/Ghulam Start time Last Medication Dose Route Stop Time Status Admin Benzocaine/Menthol 1 ERICK Q2P PRN 12/29 1330 AC PO Ceftriaxone Sodium 1,000 MG 12/25 2200 AC 12/31 IV 2158 Dextrose/Sodium 1,000 ML Q8H 12/28 2145 AC 01/01 Chloride IV 0257 Diltiazem HCl 60 MG Q8 12/30 1400 AC 01/01 PO 0639 Furosemide 20 MG DAILY 12/29 1609 AC 12/31 IV 0834 Heparin Sodium 5,000 UNIT .[facility] ONE 01/01 0027 DC (Porcine) IV 01/01 0028 Heparin Sodium 3,837 UNIT ONCE ONE 01/01 0020 DC 01/01 (Porcine) IV 01/01 0021 0020 Heparin Sodium 25,000 UNIT Q24H 12/31 1445 AC 12/31 (Porcine) IV 1552 Sodium Chloride 500 ML Heparin Sodium 5,000 UNIT Q8 12/30 0600 DC 12/31 (Porcine) SC 1334 Hydromorphone HCl 0.4 MG Q4P PRN 12/28 2145 AC 01/01 IV 0440 Hydromorphone HCl 0.6 MG Q4P PRN 12/28 2145 AC 12/29 IV 1832 Hydromorphone HCl 1 MG Q4P PRN 12/28 214 AC IV Magnesium Sulfate 1 GM ONCE ONE 12/31 1115 DC 12/31 Dextrose/Water 100 ML IV 12/31 1514 1300 Ondansetron HCl 4 MG Q6P PRN 12/28 214 AC IV Pantoprazole Sodium 40 MG DAILY 12/28 2230 AC 12/31 IV 0834 Phenytoin 200 MG BID 12/30 2200 AC 12/31 PO 2158 Potassium Chloride 10 MEQ Q1H 12/31 1115 DC 12/31 IV 12/31 1216 1528 Sertraline HCl 25 MG DAILY 12/31 1000 AC 12/31 PO 01/02 1001 1156 Warfarin Sodium 7.5 MG COUMADIN 1700 ONE 12/31 1700 DC 12/31 PO 12/31 1701 1701 Results Last 24 Hours of Lab Results: Laboratory Tests 01/01 01/01 12/31 0625 0625 2254 Chemistry Sodium (137 - 145 mmol/L) 139 Potassium (3.5 - 5.1 mmol/L) 3.4 L Chloride (98 - 107 mmol/L) 106 Carbon Dioxide (22 - 30 mmol/L) 25 Anion Gap (5 - 16) 8 BUN (9 - 20 mg/dL) 13 Creatinine (0.7 - 1.2 mg/dL) 0.8 Estimated GFR (>60 ml/min) > 60 BUN/Creatinine Ratio (7 - 25 %) 16.3 Magnesium (1.6 - 2.3 mg/dL) 1.8 Coagulation PT (9.4 - 12.5 SEC) 14.7 H INR (0.90 - 1.17) 1.40 H APTT (25 - 37 SEC) 45 H 47 H Hematology CBC w Diff NO MAN DIFF REQ WBC (4.8 - 10.8 /CUMM) 10.8 RBC (4.70 - 6.10 /CUMM) 3.71 L Hgb (14.0 - 18.0 G/DL) 10.2 L Hct (42 - 52 %) 31.7 L MCV (80.0 - 94.0 FL) 85.4 MCH (27.0 - 31.0 PG) 27.5 RDW (11.5 - 14.5 %) 17.9 H Plt Count (130 - 400 /CUMM) 214 MPV (7.4 - 10.4 FL) 7.7 Gran % (42.2 - 75.2 %) 86.5 H Lymphocytes % (20.5 - 51.1 %) 6.5 L Monocytes % (1.7 - 9.3 %) 6.5 Eosinophils % (0 - 5 %) 0.2 Basophils % (0.0 - 2.0 %) 0.3 Absolute Granulocytes (1.4 - 6.5 /CUMM) 9.3 H Absolute Lymphocytes (1.2 - 3.4 /CUMM) 0.7 L Absolute Monocytes (0.10 - 0.60 /CUMM) 0.7 H Absolute Eosinophils (0.0 - 0.7 /CUMM) 0 Absolute Basophils (0.0 - 0.2 /CUMM) 0 PUBS MCHC (33.0 - 37.0 G/DL) 32.2 L 05/04 1800 Coagulation PT (9.4 - 12.5 SEC) 12.9 H INR (0.90 - 1.17) 1.23 H Assessment/Plan Assessment/Recommendations: Mr. Carrion is a 61-year-old male with history of seizure, PE, abdominal mass in 2015 who presents with symptomatic anemia. Imaging demonstrated a pelvic mass with possible communication with bowel but no definite with bladder. He was taken to OR on 12/28 for exploratory laparoscopy by Dr. Proctor. Per Dr. 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 Dr. Proctor did resect ischemic portion of the ileum and cecum. The mass was left intact. Due to the adherence to the bladder, Dr. Proctor has recommended transfer to higher facility for complete surgical resection. Transfer to [facility] was discussed but was placed on hold due to concern on whether patient would benefit from chemotherapy with radiation prior to surgery. Prelim path demonstrated no evidence of malignancy in colon sample or 17 lymph nodes. IR has been contacted and felt that they cannot do needle biopsy on possible mucinous tumor/mucoceles due to the potential seeding of peritoneal. Dr. Emanuel does not feel that he can get to the mass with sigmoidoscopy. Another option would be cystoscopy with Dr. Jones for tissue diagnosis. Optimally, he would be a candidate for sugery and diagnosis at the same time. I'm unsure of what I would be treating if I start chemotherapy. Radiation would not really be an option in the same setting. He may need referral to [facility] surgical oncology (Dr. Asher or Zeinab) for evaluation. 1. Consider cystoscopy with biopsy at the same time 2. Bridging to warfarin again 3. Referral to [facility] Surgical oncology (Dr. Asher or Dr. Arriola) 4. Will need discussion with tumor board regarding recommendations on surgery and chemotherapy Please call [phone] with any questions. Problem List: 1. Abdominal mass 2. Urinary (tract) obstruction 3. Bilateral lower extremity edema 4. Iron deficiency anemia
[2017-01-01 15:58] VITALS: BP 136/84
[2017-01-01 16:26] LABS: PTT 42 SEC (25-37)
--- NOTE | 2017-01-01 18:31 | PN- Cardiology ---
Subjective Subjective: * No complaints * potassium is 3.4 * sinus tachycardia Objective Vital Signs and I&Os Vital Signs Date Time Temp Pulse Resp B/P B/P Pulse O2 O2 Flow FiO2 Mean Ox Delivery Rate 01/01 1558 99.7 117 20 136/84 91 Room Air 01/01 1358 98.8 98 16 124/90 05/05 0800 98.8 98 16 124/90 92 Room Air 01/01 0639 96 130/84 05/ 0020 99.1 101 18 130/84 93 Room Air 01/01 0000 96 Room Air 12/31 2159 97 124/64 Intake & Output 01/01 1600 01/01 0800 01/01 0000 12/31 1600 12/31 0800 12/31 0000 Intake Total 2064 1416 513 200 375 Output Total 100 75 50 Balance 1964 1416 513 125 325 Intake, IV 1264 1216 453 375 Intake, Oral 800 200 60 200 Number 1 1 Bowel Movements Output, Urine 100 75 50 Patient 155 lb 212 lb Weight Weight Standing Scale Standing Scale Measurement Method Physical Exam: General: WD/ overweigth male in NAD; alert and oriented x 3 Neck: no JVD, no carotid bruit Heart: RRR w/o murmur Lungs: clear bilaterally Abdomen: soft, tender Extremities: 2+ bilateral leg edema Assessment/Plan Assessment/Plan * This patient has edema that is likely related to a malignancy rather than decompensated CHF. His EF is normal and he has normal pulmonary pressures. In addition, this patient is active at his baseline without symptoms of ischemia. His ECG does not show any ischemic changes. He has tolerated his surgery well. Continue to monitor on telemetry to assess for any dysrhythmia that may be associated with his lightheadedness. I think it is most likely that his falls and LOC were related to seizures however. * Replete the patient's potassium to 4-4.5. * Leg swelling: Change Lasix to 40mg PO daily. * SVT noted on telemetry along with intermittent sinus tachycardia. This has improved. Increase Cardizem to to 120mg BID. Continue telemetry? Yes
--- NOTE | 2017-01-01 19:46 | PN- General Surgery ---
Surgical Brief Attending Note Brief Attending Note: Resting comfortably, postop day 4, tolerating diet, still some tachycardia increased his dose of Cardizem, as well as signs stable otherwise afebrile abdomen not distended firm lower half as before, he is voiding around the Sanchez as well as some in the Sanchez which is probably getting intermittently clogged by bits of mucin, I told the nurses they can try some gentle irrigation, by the way you could send the urine for cytology. Otherwise continue present care/plan.
[2017-01-01 22:47] LABS: PTT 84 SEC (25-37)
[2017-01-02 01:03] VITALS: BP 116/70
[2017-01-02 08:36] LABS: PT 24.6 SEC (9.4-12.5)
--- NOTE | 2017-01-02 08:46 | PN- Housestaff ---
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 However on repeat check, it was 99.5. Blood cultures x2 were drawn. Patient seen and examined this morning. He reports that his abdominal pain is worse today. He continues to move his bowels. He endorses nausea and lack of appetite on the full liquids diet that he is currently on. He denies shortness of breath, chest pain or palpitations. Review of Systems Constitutional: Reports: see HPI. Objective Last 24 Hrs of Vital Signs/I&O Vital Signs Date Time Temp Pulse Resp B/P B/P Pulse O2 O2 Flow FiO2 Mean Ox Delivery Rate 01/02 1600 95 Room Air 01/02 1548 98.6 111 18 106/68 93 Room Air 01/02 0849 98.9 106 18 128/88 94 Room Air 01/02 0800 Room Air Room Air 01/02 0119 99.5 01/02 0103 101.6 113 12 116/70 93 Room Air Intake & Output 01/03 0800 05/ 0000 01/02 1600 Intake Total 1200 1140 Output Total 150 21 Balance 1050 1119 Intake, IV 800 930 Intake, Oral 400 150 Intake, Other 60 Number 3 Bowel Movements Output, Stool 1 Output, Urine 150 20 Physical Exam General Appearance: Alert, Oriented X3, No Acute Distress HEENT: Atraumatic, Mucous Membr. moist/pink Cardiovascular: Regular Rate, Normal S1, Normal S2, No Murmurs, Gallops, Rubs Lungs: Diminished Bibasilar Breath Sounds Abdomen: Soft, Diffusely Tender to Palpation, Positive Bowel Sounds, No Rebound or Guarding, Distended Extremities: No Clubbing, No Cyanosis, Bilateral Lower Extremities with 2+ Pitting Edema Current Medications: Current Medications Sig/Ghulam Start time Last Medication Dose Route Stop Time Status Admin Acetaminophen 1,000 MG Q6H 01/02 1100 AC 01/02 N/A 1 UNIT IV 01/03 0514 2349 Benzocaine/Menthol 1 ERICK Q2P PRN 12/29 1330 AC PO Ceftriaxone Sodium 1,000 MG 12/25 2200 AC 01/02 IV 2133 Dextrose/Sodium 1,000 ML Q8H 12/28 2145 DC 01/02 Chloride IV 0540 Diltiazem HCl 360 MG DAILY 01/03 1000 AC PO Diltiazem HCl 120 MG 1600,2200 01/02 1600 DC 01/02 PO 01/02 2201 2349 Diltiazem HCl 360 MG DAILY 01/02 1451 DC PO Diltiazem HCl 120 MG BID 01/01 2200 DC 01/02 PO 0941 Furosemide 40 MG DAILY 01/02 1000 AC 01/02 PO 0940 Heparin Sodium 25,000 UNIT .STK-MED ONE 01/02 1243 DC (Porcine) IV 01/02 1244 Heparin Sodium 25,000 UNIT Q24H 12/31 1445 DC 01/01 (Porcine) IV 0927 Sodium Chloride 500 ML Hydromorphone HCl 1.5 MG Q4P PRN 01/02 1100 DC IV Hydromorphone HCl 0.4 MG Q4P PRN 12/28 2145 DC 01/01 IV 1537 Hydromorphone HCl 0.6 MG Q4P PRN 12/28 2145 DC 01/02 IV 0953 Hydromorphone HCl 1 MG Q4P PRN 12/28 2145 DC 01/02 IV 0708 Ketorolac 15 MG BID 01/02 1456 DC Tromethamine IV 01/07 1455 Ketorolac 15 MG BID 01/02 1445 DC Tromethamine IV 01/07 1444 Ketorolac 30 MG DAILY 01/02 1408 DC Tromethamine IV 01/07 1407 Magnesium Oxide 400 MG BID 01/02 1000 AC 01/02 PO 2134 Morphine Sulfate 2 MG Q4P PRN 01/02 1415 DC IV Ondansetron HCl 4 MG Q6P PRN 12/28 2145 AC IV Pantoprazole Sodium 40 MG DAILY 12/28 2230 AC 01/02 IV 0941 Phenytoin 200 MG BID 12/30 2200 AC 01/02 PO 2134 Potassium Chloride 40 MEQ Q13H 01/02 2230 CAN Dextrose/Sodium 1,000 ML IV Chloride Potassium Chloride 40 MEQ Q13H 01/02 1100 AC 01/02 Dextrose/Sodium 1,000 ML IV 1152 Chloride Potassium Chloride 20 MEQ Q13H 01/02 0930 DC Dextrose/Sodium 1,000 ML IV Chloride Sertraline HCl 50 MG DAILY 01/03 1000 AC PO Sertraline HCl 25 MG DAILY 12/31 1000 DC 01/02 PO 01/02 1001 0940 Tramadol HCl 50 MG Q4 PRN 01/02 1545 AC 01/02 PO 2134 Warfarin Sodium 5 MG COUMADIN 1700 ONE 01/02 1700 DC 01/02 PO 01/02 1701 1837 Last 24 Hrs of Lab/Yuri Results Last 24 Hrs of Labs/Mics: Laboratory Tests 01/02/17 1130: APTT 103 *H 01/02/17 0740: Anion Gap 9, Estimated GFR > 60, BUN/Creatinine Ratio 18.8, Magnesium 1.7, PT 24.6 H, INR 2.36 H, CBC w Diff NO MAN DIFF REQ, RBC 3.73 L, MCV 85.0, MCH 28.0, RDW 17.8 H, MPV 8.1, Gran % 83.0 H, Lymphocytes % 11.8 L, Monocytes % 4.9, Eosinophils % 0, Basophils % 0.3, Absolute Granulocytes 8.5 H, Absolute Lymphocytes 1.2, Absolute Monocytes 0.5, Absolute Eosinophils 0, Absolute Basophils 0, PUBS MCHC 32.9 L Microbiology 01/02 0340 BLOOD: Blood Culture - RECD 01/02 330 BLOOD: Blood Culture - RECD Orders Radiology Findings: XR ABDOMEN MULTIPLE VIEWS: 1. Large amount of free air in the abdomen, most likely related to recent operative procedure. 2. Mild gaseous distention of the stomach and moderate distention of the hepatic and splenic flexures of the colon with air-fluid levels, likely representing an ileus. Clinical correlation and follow up is recommended. 3. Bibasilar opacities, in the setting of low lung volumes, most likely representing atelectasis. 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 #Abdominal pain: Worsening abdominal pain associated with nausea today. Abdominal XR was ordered which showed postsurgical changes, ileus and large amount of free air in the abdomen likely related to recent operation. * Keep patient NPO. OK to give medications with small sips of water * CT Abdomen/Pelvis with Oral Contrast ordered per surgery recs. * Limit opioid analgesics given ileus. 1 g IV Tylenol Q6H around the clock and tramadol 50 mg PO Q4H for breakthrough pain. 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 Right hemicolectomy was performed for transection of ischemic bowel, however tumor resection was aborted and mass was left intact due to inability to perform radical resection of bladder. Extensive multidisciplinary discussions were initiated to transfer patient to a higher care facility for complete surgical resection, however, [place] [facility] feel that patient would not be suited for inpatient workup at this time. Final pathology negative for malignancy in resected colon sample or 17 lymph nodes. Multiple avenues for repeat tissue sampling were considered but were felt to be infeasible by specialists. * Oncology and general surgery following. Appreciate their recs. * Zofran 4 mg IV Q6H PRN for nausea. * No plan for transfer to [place] at this time. Patient will be discharged to [facility]. * Refer to [facility] surgical oncology on discharge (Dr. Asher or Dr. Arriola). * Await ongoing tumor board discussions regarding treatment recommendations. #Sinus tachycardia/SVT: Persistent mild sinus tachycardia. No recurrent episodes of SVT noted. * Continue telemetry monitoring. * Cardiology following. Appreciate their recs. * Change to Cardizem 360 mg PO daily. #UTI: UCx growing >100,000 colonies/ml of Providencia, sensitive to ceftriaxone and persistent mild dysuria. Fever to 101.6 yesterday but it is questionable whether this is a measurement error as temperature was normal on repeat check. WBC count remains normal. * Continue ceftriaxone 1 g IV daily. * Follow repeat BCx. #History of PE: Diagnosed in 2013. Patient was on warfarin [id number]. Currently on IV heparin bridge to warfarin. INR 2.36 today. * Discontinue IV heparin given therapeutic INR. * Administer 5 mg of warfarin today. * Continue to monitor INR daily and dose warfarin accordingly. #Problems with Sanchez drainage: Secondary to large pelvic mass elevating bladder base. Per urology, it is suspected that there will be intermittent issues with Sanchez drainage until the mass is resected with reconstruction of the urinary tract. * Urology following. Appreciate their recs. * Patient may require bilateral nephrostomies to divert the urine. * Per urology, if Sanchez is not draining, advance Sanchez without deflating balloon , followed by the instillation of 60 ml of sterile water or saline, then allowing to drain passively. #Bilateral lower extremity edema: Likely secondary to underlying malignancy rather than decompensated CHF. ECHO with normal LVEF, no wall motion abnormalities and no evidence of pulmonary hypertension. * Continue Lasix 20 mg IV daily. #Anemia: Iron studies consistent with combination of iron deficiency anemia and anemia of chronic inflammation. S/p 5 units of pRBCs this admission. H/H currently stable. * Continue to monitor H/H. * EGD/colonoscopy to be performed as outpatient for evaluation of iron deficiency anemia and rectal bleeding. * Follow up with hematology as outpatient. * Continue iron sulfate 325 mg PO TID. #Loss of consciousness: Most likely represent complex partial seizures, rather than syncope. EEG normal. * Continue telemetry to monitor for arrhythmias that could be associated with lightheadedness. * Continue prior to admission phenytoin 200 mg PO BID. #Anxiety: Has been endorsing significant anxiety and sadness related to his disorder. Per psych, does not meet criteria for psychiatric disorder, with his reaction likely representing a normal response to his newly diagnosed illness. * Increase sertraline to 50 mg PO daily. * Consider cancer [facility] school social worker referral on discharge. Diet: NPO Fluids: 40 mEq KCl in D5NS @ 75 cc/hr Lytes: Replete to K >4-4.5 and Mg >2 DVT PPx: Warfarin and ALPs CODE: FULL Problem List: 1. Malignant neoplasm of appendix 2. Sinus tachycardia 3. Anxiety 4. Supraventricular tachycardia 5. Urinary (tract) obstruction 6. Pelvic neoplasm 7. Bilateral lower extremity edema 8. Anemia of chronic disease 9. Iron deficiency anemia 10. History of pulmonary embolism 11. Abdominal pain 12. Postoperative ileus Pain Ratin Pain Location: Abdomen Pain Goal: Pain 4 or less Pain Plan: Tylenol 1 g IV Q6H Tramadol 50 mg PO Q4H PRN for breakthrough pain Tomorrow's Labs & Rationales: CBC to monitor WBC in the setting of leukocytosis BMP and Mg to monitor lytes in the setting of hypokalemia and hypomagnesemia INR in the setting of warfarin therapy KODY SANFORD MD 01/02/17 5459: Attending MD Review Statement Attending Statement Attending MD Statement: examined this patient, discuss w/resident/PA/PLANT SPRAYER, agreed w/resident/PA/PLANT SPRAYER, reviewed EMR data (avail), discussed with nursing, discussed with case mgmt, amended to note Attending Assessment/Plan: patient seen and examined. Chronically ill-looking. Complaining of abdominal pain. Reports that this pain is new since surgery. His generalized and severe in intensity. Reports having loose bowel movement earlier on this morning. Denies nausea. Denies vomiting. Examination heart sounds are regular breath sounds are diminished in the bases. Abdomen is highly distended but soft. Tender in all quadrants with no rebound or guarding. Bowel sounds present. S2 to 3 plus bilateral pedal edema. Case was discussed with the surgical service this morning and an abdominal x-ray was obtained. X-ray shows evidence of ileus and postsurgical changes. Recommendations: -Try to limit use of opioid analgesics. Pain management with IV Tylenol around- the-clock. -Cardiology follow-up appreciated. -If abdominal pain does not improve or worsens obtain CT abdomen and pelvis. -Continue IV Rocephin for UTI. Follow blood cultures as he was febrile yesterday with a temperature 101.6.
[2017-01-02 08:47] LABS: ABSOLUTE BASOPHIL COUNT 0 /CUMM (0.0-0.2); ABSOLUTE EOSINOPHIL COUNT 0 /CUMM (0.0-0.7); ABSOLUTE GRANULOCYTE CT 8.5 /CUMM (1.4-6.5); ABSOLUTE LYMPH COUNT 1.2 /CUMM (1.2-3.4); ABSOLUTE MONOCYTE COUNT 0.5 /CUMM (0.10-0.60); BASOPHIL % 0.3 % (0.0-2.0); EOSINOPHIL % 0 % (0-5); HEMATOCRIT 31.7 % (42-52); MEAN CORPUSCULAR HGB CONC 32.9 G/DL (33.0-37.0); MEAN PLATELET VOLUME 8.1 FL (7.4-10.4); PLATELET COUNT 210 /CUMM (130-400); RBC DISTRIBUTION WIDTH 17.8 % (11.5-14.5); RED BLOOD CELL CT 3.73 /CUMM (4.70-6.10); WHITE BLOOD CELL COUNT 10.2 /CUMM (4.8-10.8)
[2017-01-02 08:49] VITALS: BP 128/88
--- NOTE | 2017-01-02 08:51 | NUR ---
RECEIVED PATIENT AT 0800: PATIENT C/O INCREASED ABDOMINAL PAIN IN GENERALIZED ABDOMEN NOT JUST OVER MIDLINE INCISION. PAIN IS 10/10 UPON PALPATION AND NEW IN INTENSITY 2 HOURS AFTER GETTING 1MG IV DILAUDID. DR. SANFORD AWARE TO CONTACT SURGERY. PATIENT NOT TO BE D/C'D TODAY.
--- NOTE | 2017-01-02 11:27 | PN- General Surgery ---
Subjective Subjective: Reports more abdominal pain this morning. Apparently he is moving his bowels, but he is also nauseous. Fever of 101.6 noted overnight. He has been advanced from clears to fulls as of yesterday for lunch, but unclear how much he's taking. Remains tachycardic also. Objective Vital Signs and I&Os Vital Signs Date Time Temp Pulse Resp B/P B/P Pulse O2 O2 Flow FiO2 Mean Ox Delivery Rate 01/02 0849 98.9 106 18 128/88 94 Room Air 01/02 0119 99.5 01/02 0103 101.6 113 12 116/70 93 Room Air 01/01 1558 99.7 117 20 136/84 91 Room Air 01/01 1358 98.8 98 16 124/90 Intake & Output 01/02 1600 01/02 0800 01/02 0000 01/01 1600 01/01 0801/01 0000 Intake Total 980.4 980.4 2064 1416 513 Output Total 50 150 100 Balance 930.4 830.4 1964 1416 513 Intake, IV 930.4 930.4 1264 1216 453 Intake, Oral 50 50 800 200 60 Number 1 Bowel Movements Output, Urine 50 150 100 Patient 155 lb Weight Weight Standing Scale Measurement Method Physical Exam: General - alert & oriented x 3. uncomfortable. no acute distress. Abdomen - soft. no bowel sound appreciated. mildly distended. incision well approximated with everardo. 2 areas of raw skin likely from adhesive related injury parallel to either side of the midline incision. liane-incisional tenderness appreciated. Assessment/Plan Assessment/Plan This 61 year old male is POD#5 s/p ex lap, right hemicolectomy for mucinous pelvic neoplasm apparently reported increased abdominal pain this morning, associated with nausea fever of 101 noted overnight midline dressing changed and xeroform placed over raw areas of skin from adhesive injury recommend abdominal multiview, ?post-op ileus recommend npo status until multiview complete may consider CT scan if he clinically worsens or if he continues to have fevers d/w (covering ). he felt a urinary source would be the most likely cause of fever given his price catheter and mucinous output periodically clogging the catheter. may consider discussing with urology.
--- NOTE | 2017-01-02 12:24 | NUR ---
UPON ENTRY PT STATING HE IS FEELING A LITTLE BETTER BUT THE PAIN COMES BACK WHEN HE MOVES. PT REFUSED SKILLED PHYSICAL THERAPY TODAY 2* TO PAIN AND ENCOURAGED TO GET OOB WHEN HE FEELS BETTER.
[2017-01-02 13:32] LABS: PTT 103 SEC (25-37)
--- NOTE | 2017-01-02 13:52 | RADIOLOGY REPORT ---
EXAMINATION: XR ABDOMEN MULTIPLE VIEWS CLINICAL INDICATION: Worsening abdominal pain and poor oral intake. Presumptive diagnosis of bowel obstruction. COMPARISON: CT scan of the abdomen and pelvis dated 12/27/2016. TECHNIQUE: Supine and upright views of the abdomen. FINDINGS: Evaluation is significantly limited due to difficulties with technique related to patient's size. Multiple midline everardo are in place, suggesting interim surgery. This was likely account for the large amounts of free air seen under the diaphragms on the upright view. Relative paucity of bowel gas is seen in the abdomen and pelvis. On the upright view, scattered air-fluid levels are noted, likely within the splenic flexure in the left upper quadrant in the hepatic flexure in the right upper quadrant. Retrocardiac partially gas-filled hiatal hernia is seen. Low lung volumes are noted with bibasilar opacities, likely related to subsegmental atelectasis. IMPRESSION: 1. Large amount of free air in the abdomen, most likely related to recent operative procedure. 2. Mild gaseous distention of the stomach and moderate distention of the hepatic and splenic flexures of the colon with air-fluid levels, likely representing an ileus. Clinical correlation and follow-up is recommended. 3. Bibasilar opacities, in the setting of low lung volumes, most likely representing atelectasis. This critical result was discussed with Dr. Adam 01/02/2017, 1:47 PM and it was ascertained that the content and urgency of this report was understood at the time of direct communication. Additional history is obtained of the interim right hemicolectomy approximately 5 days ago. Large pelvic mass could not be removed due to adhesions to the bladder.
--- NOTE | 2017-01-02 14:24 | PN- Cardiology ---
Subjective Subjective: The patient complains of abdominal discomfort. No chest pain. No palpitations. He continues to have mild sinus tachycardia. Objective Vital Signs and I&Os Vital Signs Date Time Temp Pulse Resp B/P B/P Pulse O2 O2 Flow FiO2 Mean Ox Delivery Rate 01/02 0849 98.9 106 18 128/88 94 Room Air 01/02 0800 Room Air Room Air 01/02 0119 99.5 / 0103 101.6 113 12 116/70 93 Room Air 01/01 1558 99.7 117 20 136/84 91 Room Air Intake & Output 01/02 1600 01/02 0800 01/02 0000 01/01 1600 01/01 0800 01/01 0000 Intake Total 980.4 980.4 2064 1416 513 Output Total 50 150 100 Balance 930.4 830.4 1964 1416 513 Intake, IV 930.4 930.4 1264 1216 453 Intake, Oral 50 50 800 200 60 Number 1 Bowel Movements Output, Urine 50 150 100 Patient 155 lb Weight Weight Standing Scale Measurement Method Physical Exam: Gen: NAD HEENT: normal Lungs: clear to auscultation, normal resp. effort Heart: RRR, S1, S2, no murmurs Abdomen: Soft, nontender, no masses Extremities: Pedema Neuro: Alert and oriented x 3, cranial nerves intact Current Medications: Current Medications Sig/Ghulam Start time Last Medication Dose Route Stop Time Status Admin Acetaminophen 1,000 MG Q6H / 1100 AC 01/02 N/A 1 UNIT IV 01/03 0514 1152 Benzocaine/Menthol 1 ERICK Q2P PRN 12/29 1330 AC PO Ceftriaxone Sodium 1,000 MG 12/25 2200 AC 01/01 IV 2125 Dextrose/Sodium 1,000 ML Q8H 12/28 2145 DC / Chloride IV 0540 Diltiazem HCl 120 MG BID 01/01 2200 AC 01/02 PO 0941 Diltiazem HCl 60 MG Q8 12/30 1400 DC 01/01 PO 1358 Furosemide 40 MG DAILY 01/02 1000 CAN IV Furosemide 40 MG DAILY 01/02 1000 AC 01/02 PO 0940 Furosemide 20 MG DAILY 12/29 1609 DC 01/01 IV 0928 Heparin Sodium 25,000 UNIT Q24H / 1445 AC 01/01 (Porcine) IV 0927 Sodium Chloride 500 ML Hydromorphone HCl 1.5 MG Q4P PRN 01/02 1100 DC IV Hydromorphone HCl 0.4 MG Q4P PRN 12/28 214 DC 01/01 IV 1537 Hydromorphone HCl 0.6 MG Q4P PRN 12/28 214 DC 01/02 IV 0953 Hydromorphone HCl 1 MG Q4P PRN 12/28 214 DC 01/02 IV 0708 Ketorolac 30 MG DAILY 01/02 1408 AC Tromethamine IV 01/07 1407 Magnesium Oxide 400 MG BID 01/02 1000 AC 01/02 PO 0947 Morphine Sulfate 2 MG Q4P PRN 01/02 1415 AC IV Ondansetron HCl 4 MG Q6P PRN 12/28 214 AC IV Pantoprazole Sodium 40 MG DAILY 12/28 2230 AC 01/02 IV 0941 Patient Medication 1 UNIT ONE NR 01/01 184 [place] Teaching ED 01/01 1900 Patient Medication 1 UNIT ONE NR 01/01 184 [place] Teaching ED 01/01 1900 Phenytoin 200 MG BID 12/30 2200 AC 01/02 PO 0941 Potassium Chloride 40 MEQ Q13H 01/02 2230 CAN Dextrose/Sodium 1,000 ML IV Chloride Potassium Chloride 40 MEQ Q13H 01/02 1100 AC 01/02 Dextrose/Sodium 1,000 ML IV 1152 Chloride Potassium Chloride 20 MEQ Q13H 01/02 0930 DC Dextrose/Sodium 1,000 ML IV Chloride Sertraline HCl 25 MG DAILY 12/31 1000 DC 01/02 PO 01/02 1001 0940 Warfarin Sodium 7.5 MG COUMADIN 1700 ONE 01/01 1700 DC 01/01 PO 01/01 1701 1641 Results Last 48 Hrs of Labs/Mics: Laboratory Tests 01/02/17 1130: APTT 103 *H 01/02/17 0740: Anion Gap 9, Estimated GFR > 60, BUN/Creatinine Ratio 18.8, Magnesium 1.7, PT 24.6 H, INR 2.36 H, CBC w Diff NO MAN DIFF REQ, RBC 3.73 L, MCV 85.0, MCH 28.0, RDW 17.8 H, MPV 8.1, Gran % 83.0 H, Lymphocytes % 11.8 L, Monocytes % 4.9, Eosinophils % 0, Basophils % 0.3, Absolute Granulocytes 8.5 H, Absolute Lymphocytes 1.2, Absolute Monocytes 0.5, Absolute Eosinophils 0, Absolute Basophils 0, PUBS MCHC 32.9 L 01/01/17 2215: APTT 84 H 01/01/17 1525: APTT 42 H 01/01/17 0625: PT 14.7 H, INR 1.40 H 01/01/17 0625: Anion Gap 8, Estimated GFR > 60, BUN/Creatinine Ratio 16.3, Magnesium 1.8, APTT 45 H, CBC w Diff NO MAN DIFF REQ, RBC 3.71 L, MCV 85.4, MCH 27.5, RDW 17.9 H, MPV 7.7, Gran % 86.5 H, Lymphocytes % 6.5 L, Monocytes % 6.5, Eosinophils % 0.2, Basophils % 0.3, Absolute Granulocytes 9.3 H, Absolute Lymphocytes 0.7 L, Absolute Monocytes 0.7 H, Absolute Eosinophils 0, Absolute Basophils 0, PUBS MCHC 32.2 L 12/31/16 2254: APTT 47 H 12/31/16 1800: PT 12.9 H, INR 1.23 H Assessment/Plan Assessment/Plan Assessment: 1. Pelvic neoplasm 2. History of pulmonary embolism in 2013 3. Sinus tachycardia 4. Bilateral lower extremity edema Plan: * Change diltiazem to Cardizem CD 360 mg by mouth daily * Continue by mouth Lasix * Continue other cardiac medications Continue telemetry? Yes
[2017-01-02 15:48] VITALS: BP 106/68
--- NOTE | 2017-01-02 23:21 | CT SCAN REPORT ---
EXAMINATION: CT ABDOMEN AND PELVIS WITH CONTRAST CLINICAL INFORMATION: Postop day 6 exploratory laparoscopy, right hemicolectomy. Abdominal pain with nausea and vomiting. COMPARISON: 12/27/2016 TECHNIQUE: Multidetector volumetric imaging was performed from the superior aspect of the liver through the pubic symphysis following administration of oral contrast. Sagittal and coronal reformatted images were obtained on the technologist's workstation. DLP: 693 mGy-cm FINDINGS: LUNG BASES: Small pleural effusions with associated basilar atelectasis. Coronary artery calcifications. LIVER, GALLBLADDER, AND BILIARY TREE: The liver is normal in size, shape, and attenuation. No lesions are seen on this unenhanced study. Small volume ascites.. Mild increased distention of the gallbladder which courses anterior to the liver. No gallstones are noted. PANCREAS: Unremarkable. SPLEEN: Unremarkable. ADRENAL GLANDS: Unremarkable. KIDNEYS AND URETERS: The kidneys are normal in size, shape, and attenuation. No hydronephrosis, hydroureter, or calculi seen. Increased fluid is seen adjacent to the right kidney.. BLADDER: There is a Sanchez catheter within the decompressed bladder. The bladder is significantly displaced anteriorly by the large pelvic mass. GASTROINTESTINAL TRACT: Moderate hiatal hernia, with contrast remaining in the hernia sac. The remainder of the stomach is unremarkable. Contrast freely passes throughout the small bowel and into the colon. There is no bowel obstruction. There is free intraperitoneal air, expected in the postoperative state. A suture line is seen in the right lower quadrant bowel. Additional suture line seen superior to the pelvic mass. ABDOMINAL WALL: Diffuse anasarca. Midline skin everardo. No hernia seen. LYMPH NODES: Limited evaluation due to lack of contrast. No gross lymphadenopathy. VASCULAR: Unremarkable. PELVIC VISCERA: The prostate appears unremarkable. The large pelvic mass is again noted, with heterogeneous attenuation internally. There are areas of calcification. Foci of gas are seen within the mass. This measures 15.3 x 15.1 x 15.2 cm, grossly similar to previous. Once again, the mass is noted to abut the sigmoid colon with nodularity in the region of the left aspect of the rectum. There is an area of nonopacification in the right pelvis adjacent to a segment of colon. Given the lack of contrast filling of this area, a collection is possible. This measures 5.8 x 3.9 cm on series 2 image 65. This measures higher than simple fluid attenuation. OSSEOUS STRUCTURES: Mild compression deformity of the L4 vertebral body. Degenerative changes throughout the spine. IMPRESSION: Similar appearance of the large pelvic mass. Mass effect upon the bladder. No bowel obstruction. Postsurgical changes status post partial resection of the right colon. At the operative site, there is a nonopacified area of higher than simple fluid attenuation which could represent a collection postoperatively. There is a small volume of free fluid with free intraperitoneal air remaining. Persistent moderate hiatal hernia.
[2017-01-03] VITALS: BP 112/76
[2017-01-03 08:32] VITALS: BP 108/68
--- NOTE | 2017-01-03 08:42 | PN- Housestaff ---
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 Subjective: Patient followed up and examined, does not have any complaints, was nothing by mouth, overnight telemetry event noted as above, vital signs otherwise have been stable, no other issues. Review of Systems Constitutional: Reports: see HPI. Objective Last 24 Hrs of Vital Signs/I&O Vital Signs Date Time Temp Pulse Resp B/P B/P Pulse O2 O2 Flow FiO2 Mean Ox Delivery Rate 01/03 1545 98.0 101 18 128/88 96 Room Air 01/03 0832 97.8 95 20 108/68 93 Room Air 01/03 0000 98.3 112 20 112/76 94 Room Air Intake & Output 01/03 1600 01/03 0800 05 0000 Intake Total 937 164 4403 Output Total 50 200 150 Balance 350 474 4481 Intake, IV 600 800 Intake, Oral 300 0 400 Number 1 2 3 Bowel Movements Output, Urine 50 200 150 Patient 99.45 kg Weight Weight Standing Scale Measurement Method Physical Exam General Appearance: Alert, Oriented X3, Cooperative, No Acute Distress Other Physical Findings: HEENT: Atraumatic, Mucous Membr. moist/pink Cardiovascular: Regular Rate, Normal S1, Normal S2, No Murmurs, Gallops, Rubs Lungs: Diminished Bibasilar Breath Sounds Abdomen: Soft, Diffusely Tender to Palpation, Positive Bowel Sounds, No Rebound or Guarding, Distended Extremities: No Clubbing, No Cyanosis, Bilateral Lower Extremities with 2+ Pitting Edema Current Medications: Current Medications Sig/Ghulam Start time Last Medication Dose Route Stop Time Status Admin Acetaminophen 1,000 MG Q6H 01/02 1100 DC 01/03 N/A 1 UNIT IV 01/03 0514 0359 Benzocaine/Menthol 1 ERICK Q2P PRN 12/29 1330 AC PO Ceftriaxone Sodium 1,000 MG 12/25 DC 05 IV 2133 Diltiazem HCl 360 MG DAILY 01/03 1000 AC 01/03 PO 1044 Diltiazem HCl 120 MG 1600,0 01/02 1600 DC 01/02 PO 01/02 2201 2349 Furosemide 40 MG DAILY 01/02 1000 AC 01/03 PO 1045 Magnesium Oxide 400 MG BID 01/02 1000 AC 01/03 PO 1045 Omeprazole 40 MG DAILY AC 01/03 1022 AC PO Ondansetron HCl 4 MG Q6P PRN 01/03 1745 AC 01/03 IV 1744 Ondansetron HCl 4 MG Q6P PRN 12/28 2145 DC IV Pantoprazole Sodium 40 MG DAILY 12/28 2230 DC 01/02 IV 0941 Phenytoin 200 MG BID 12/30 2200 AC 01/03 PO 1045 Potassium Chloride 40 MEQ Q13H 01/02 1100 DC 01/03 Dextrose/Sodium 1,000 ML IV 0358 Chloride Sertraline HCl 50 MG DAILY 01/03 1000 AC 01/03 PO 1045 Tramadol HCl 50 MG Q4 PRN 01/02 1545 AC 01/03 PO 0745 Trimethobenzamide HCl 200 MG ONCE ONE 01/03 2030 DC IM 01/03 2031 Last 24 Hrs of Lab/Yuri Results Last 24 Hrs of Labs/Mics: Laboratory Tests 01/03/17 0610: Anion Gap 11, Estimated GFR > 60, BUN/Creatinine Ratio 15.0, Magnesium 1.8, PT 39.2 H, INR 3.78 H, CBC w Diff MAN DIFF ORDERED, RBC 3.90 L, MCV 85.9, MCH 27.5, RDW 18.1 H, MPV 8.7, Gran % 94.4 H, Lymphocytes % 3.1 L, Monocytes % 2.2, Eosinophils % 0, Basophils % 0.3, Absolute Granulocytes 20.8 H, Segmented Neutrophils 69, Band Neutrophils 25 H, Absolute Lymphocytes 0.7 L, Lymphocytes 3 L, Monocytes 3, Absolute Monocytes 0.5, Absolute Eosinophils 0, Absolute Basophils 0.1, Anisocytosis 2+, PUBS MCHC 32.0 L Assessment/Plan Assessment: 61 y/o M with PMHx of seizure disorder on Dilantin, PE in 2013 on Coumadin and BPH who is admitted with symptomatic anemia, bilateral lower extremity edema and large pelvic mass s/p exploratory laparotomy revealing 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 #Abdominal pain: Abdominal pain was much under control, but the patient had an episode of vomiting around 5 PM today. CAT scan of abdomen with oral contrast showed similar appearance of large pelvic mass with mass effect on the bladder but no bowel obstruction and postsurgical changes. There is a small volume of free fluid with free intraperitoneal air remaining. Surgery team followed the patient and has been changed to clear liquid diet, antibiotics discontinued, and will follow. * Limit opioid analgesics given ileus. 1 g IV Tylenol Q6H around the clock and tramadol 50 mg PO Q4H for breakthrough pain. #Mucinous pelvic neoplasm: No change in plan since yesterday. #Sinus tachycardia/SVT: Cardizem CD 360 mg by mouth daily, continue by mouth Lasix, continue other cardiac medications per cardiology consultation. #UTI: Providencia growing in Urine cx. * Continue ceftriaxone 1 g IV daily. * Follow repeat BCx. #History of PE: Diagnosed in 2013. Patient was on warfarin [id number]. Currently on IV heparin bridge to warfarin. INR 2.36 today. * Discontinued IV heparin given therapeutic INR. INR 3.78 today. * Continue to monitor INR daily but do NOT dose warfarin for the time being per surgery team. #Problems with Sanchez drainage: No change since yesterday. #Bilateral lower extremity edema: Likely secondary to underlying malignancy rather than decompensated CHF. ECHO with normal LVEF, no wall motion abnormalities and no evidence of pulmonary hypertension. * Continue Lasix 20 mg IV daily. #Anemia: Iron studies consistent with combination of iron deficiency anemia and anemia of chronic inflammation. S/p 5 units of pRBCs this admission. H/H currently stable. * Continue to monitor H/H. * EGD/colonoscopy to be performed as outpatient for evaluation of iron deficiency anemia and rectal bleeding. * Follow up with hematology as outpatient. * Continue iron sulfate 325 mg PO TID. #Loss of consciousness: Most likely represent complex partial seizures, rather than syncope. EEG normal. * Continue telemetry to monitor for arrhythmias that could be associated with lightheadedness. * Continue prior to admission phenytoin 200 mg PO BID. #Anxiety: No change since yesterday. * Consider cancer center social services analyst referral on discharge. Diet: Clear liquid diet per surgery Fluids: 40 mEq KCl in D5NS @ 75 cc/hr Lytes: Replete to K >4-4.5 and Mg >2 DVT PPx: ALPs CODE: FULL Problem List: 1. Malignant neoplasm of appendix 2. Sinus tachycardia 3. Urinary (tract) obstruction 4. Anxiety 5. Supraventricular tachycardia 6. History of pulmonary embolism 7. Abdominal mass 8. Malnutrition Pain Ratin Pain Location: abd when present Pain Goal: Pain 4 or less Pain Plan: prn Tomorrow's Labs & Rationales: INR, CBC, BEP CLARIBEL SOSA,KODY 01/03/17 1319: Attending MD Review Statement Attending Statement Attending MD Statement: examined this patient, discuss w/resident/PA/ETHNIC STUDIES PROFESSOR, agreed w/resident/PA/ETHNIC STUDIES PROFESSOR, reviewed EMR data (avail), discussed with nursing, amended to note Attending Assessment/Plan: Patient seen and examined. Lying in bed not in acute distress. Reports the abdominal pain has improved today. Denies any nausea vomiting. Reports having a bowel movement. On examination lungs are clear bilaterally. Abdomen has intact surgical dressing in place. It is full soft and nontender. He continues to have significant anasarca. Labs show significant leukocytosis today however he is afebrile and blood cultures drawn yesterday are negative. MAXIMUM TEMPERATURE yesterday around 1 AM was 101.6 Case discussed with the general surgeon. Recommendations monitor patient off antibiotic therapy for now. He has completed a dose of IV antibiotic therapy for his UTI. Recommendations: -Repeat urinalysis or urine culture. -Monitor CBCs daily. -If patient spikes fever again obtain ID consult. -Hold Coumadin for Gen. surgery recommendations in anticipation of any surgical intervention. Continue bridging with IV heparin. -He is currently sinus rhythm. Discontinue telemetry per cardiology recommendations
[2017-01-03 09:26] LABS: PT 39.2 SEC (9.4-12.5)
[2017-01-03 09:28] LABS: ABSOLUTE BASOPHIL COUNT 0.1 /CUMM (0.0-0.2); ABSOLUTE EOSINOPHIL COUNT 0 /CUMM (0.0-0.7); ABSOLUTE GRANULOCYTE CT 20.8 /CUMM (1.4-6.5); ABSOLUTE LYMPH COUNT 0.7 /CUMM (1.2-3.4); ABSOLUTE MONOCYTE COUNT 0.5 /CUMM (0.10-0.60); BASOPHIL % 0.3 % (0.0-2.0); EOSINOPHIL % 0 % (0-5); GRANULOCYTE % 94.4 % (42.2-75.2); HEMATOCRIT 33.5 % (42-52); MEAN CORPUSCULAR HGB 27.5 PG (27.0-31.0); MEAN CORPUSCULAR VOLUME 85.9 FL (80.0-94.0); MEAN PLATELET VOLUME 8.7 FL (7.4-10.4); PLATELET COUNT 241 /CUMM (130-400); RBC DISTRIBUTION WIDTH 18.1 % (11.5-14.5)
--- NOTE | 2017-01-03 09:35 | PN- General Surgery ---
Surgical Brief Attending Note Brief Attending Note: CT reviewed. No contrast extravasation to suggest anastomotic leak. ? abscess near anastomosis but images not definitive. Will review with IR tomorrow. In the interim, hold coumadin today. Rec: D/C ivf. d/c ceftriaxone and observe off abx. continue diuresis full liquid diet hold coumadin today
--- NOTE | 2017-01-03 11:22 | PN- Cardiology ---
Subjective Subjective: No chest pain. No palpitations. No shortness of breath. No dizziness. air sampling and monitoring shows sinus rhythm. Heart rate has improved on diltiazem. Objective Vital Signs and I&Os Vital Signs Date Time Temp Pulse Resp B/P B/P Pulse O2 O2 Flow FiO2 Mean Ox Delivery Rate 01/04 0832 97.8 95 20 108/68 93 Room Air / 0000 98.3 112 20 112/76 94 Room Air 01/02 1600 95 Room Air / 1548 98.6 111 18 106/68 93 Room Air Intake & Output 01/03 1600 / 0800 05/ 0000 05/ 1600 01/02 0800 05/ 0000 Intake Total 600 1200 1140 980.4 980.4 Output Total 200 150 21 50 150 Balance 400 1050 1119 930.4 830.4 Intake, IV 600 800 930 930.4 930.4 Intake, Oral 0 400 150 50 50 Intake, Other 60 Number 2 3 Bowel Movements Output, Stool 1 Output, Urine 200 150 20 50 150 Patient 219 lb Weight Weight Standing Scale Measurement Method Physical Exam: Gen: NAD HEENT: normal Lungs: clear to auscultation, normal resp. effort Heart: RRR, S1, S2, no murmurs Abdomen: Soft, nontender, no masses Extremities: Pedema Neuro: Alert and oriented x 3, cranial nerves intact Current Medications: Current Medications Sig/Ghulam Start time Last Medication Dose Route Stop Time Status Admin Acetaminophen 1,000 MG Q6H 01/02 1100 DC 01/03 N/A 1 UNIT IV 01/03 0514 0359 Benzocaine/Menthol 1 ERICK Q2P PRN 12/29 1330 AC PO Ceftriaxone Sodium 1,000 MG 12/25 2200 AC 01/02 IV 2133 Diltiazem HCl 360 MG DAILY 01/03 1000 AC 01/03 PO 1044 Diltiazem HCl 120 MG 1600,2200 01/02 1600 DC / PO 01/02 2201 2349 Diltiazem HCl 360 MG DAILY 01/02 1451 DC PO Diltiazem HCl 120 MG BID 01/01 2200 DC 01/02 PO 0941 Furosemide 40 MG DAILY 01/02 1000 AC 01/03 PO 1045 Heparin Sodium 25,000 UNIT .STK-MED ONE 01/02 1243 DC (Porcine) IV 01/02 1244 Heparin Sodium 25,000 UNIT Q24H 12/31 1445 DC 01/01 (Porcine) IV 0927 Sodium Chloride 500 ML Hydromorphone HCl 1.5 MG Q4P PRN 01/02 1100 DC IV Hydromorphone HCl 0.4 MG Q4P PRN 12/28 2145 DC 01/01 IV 1537 Hydromorphone HCl 0.6 MG Q4P PRN 12/28 2145 DC 01/02 IV 0953 Ketorolac 15 MG BID 01/02 1456 DC Tromethamine IV 01/07 1455 Ketorolac 15 MG BID 01/02 1445 DC Tromethamine IV 01/07 1444 Ketorolac 30 MG DAILY 01/02 1408 DC Tromethamine IV 01/07 1407 Magnesium Oxide 400 MG BID 01/02 1000 AC 01/03 PO 1045 Morphine Sulfate 2 MG Q4P PRN 01/02 1415 DC IV Omeprazole 40 MG DAILY AC 01/03 1022 AC PO Ondansetron HCl 4 MG Q6P PRN 12/28 2145 AC IV Pantoprazole Sodium 40 MG DAILY 12/28 2230 DC 01/02 IV 0941 Phenytoin 200 MG BID 12/30 2200 AC 01/03 PO 1045 Potassium Chloride 40 MEQ Q13H 01/02 1100 DC 01/03 Dextrose/Sodium 1,000 ML IV 0358 Chloride Sertraline HCl 50 MG DAILY 01/03 1000 AC 01/03 PO 1045 Tramadol HCl 50 MG Q4 PRN 01/02 1545 AC 01/03 PO 0745 Warfarin Sodium 5 MG COUMADIN 1700 ONE 01/02 1700 DC 01/02 PO 01/02 1701 1837 Results Last 48 Hrs of Labs/Mics: Laboratory Tests 01/03/17 0610: Anion Gap 11, Estimated GFR > 60, BUN/Creatinine Ratio 15.0, Magnesium 1.8, PT 39.2 H, INR 3.78 H, CBC w Diff Pending, WBC Pending, RBC Pending, Hgb Pending, Hct Pending, MCV Pending, MCH Pending, RDW Pending, Plt Count Pending, MPV Pending, PUBS MCHC Pending 01/02/17 1130: APTT 103 *H 01/02/17 0740: Anion Gap 9, Estimated GFR > 60, BUN/Creatinine Ratio 18.8, Magnesium 1.7, PT 24.6 H, INR 2.36 H, CBC w Diff NO MAN DIFF REQ, RBC 3.73 L, MCV 85.0, MCH 28.0, RDW 17.8 H, MPV 8.1, Gran % 83.0 H, Lymphocytes % 11.8 L, Monocytes % 4.9, Eosinophils % 0, Basophils % 0.3, Absolute Granulocytes 8.5 H, Absolute Lymphocytes 1.2, Absolute Monocytes 0.5, Absolute Eosinophils 0, Absolute Basophils 0, PUBS MCHC 32.9 L 01/01/17 2215: APTT 84 H 01/01/17 1525: APTT 42 H Assessment/Plan Assessment/Plan Assessment: 1. Pelvic neoplasm 2. History of pulmonary embolism in 2013 3. Sinus tachycardia, improved on diltiazem 4. Bilateral lower extremity edema Plan: * Change diltiazem to Cardizem CD 360 mg by mouth daily * Continue by mouth Lasix * Continue other cardiac medications Continue telemetry? No
[2017-01-03 15:45] VITALS: BP 128/88
[2017-01-04 00:32] VITALS: BP 118/60
[2017-01-04 05:03] LABS: ABSOLUTE BASOPHIL COUNT 0 /CUMM (0.0-0.2); ABSOLUTE EOSINOPHIL COUNT 0 /CUMM (0.0-0.7); ABSOLUTE LYMPH COUNT 0.5 /CUMM (1.2-3.4); EOSINOPHIL % 0 % (0-5)
[2017-01-04 05:11] LABS: ABSOLUTE GRANULOCYTE CT 15.2 /CUMM (1.4-6.5); ABSOLUTE MONOCYTE COUNT 0.3 /CUMM (0.10-0.60); BASOPHIL % 0.1 % (0.0-2.0); MEAN CORPUSCULAR HGB 27.1 PG (27.0-31.0); MEAN CORPUSCULAR HGB CONC 31.6 G/DL (33.0-37.0); MEAN CORPUSCULAR VOLUME 85.7 FL (80.0-94.0); PLATELET COUNT 300 /CUMM (130-400); RBC DISTRIBUTION WIDTH 17.9 % (11.5-14.5); RED BLOOD CELL CT 4.59 /CUMM (4.70-6.10); WHITE BLOOD CELL COUNT 15.9 /CUMM (4.8-10.8)
[2017-01-04 05:16] LABS: HEMATOCRIT 39.3 % (42-52)
--- NOTE | 2017-01-04 05:16 | NUR ---
AT APPROX 0430 PT WAS NOTED TO HAVE DARK EMESIS THICK BROWN DRAINAGE FROM ACE; DR JOSE RAMON GAMEZ AT BEDSIDE AND TOOK NOTE OF BOTH; STAT LABS WERE DRAWN; TOLD TO HOLD OFF IRIGATING ACE UNTIL NOTES WERE CLARIFIED ON FURTHER ACTION; PT SAID HE FELT HOT AND WANTED ICE FOR HIS FOREHEAD; TEMP 98.4, ROOM TEMP TURNED DOWN TO MAKE PT FEEL MORE COMFORTABLE
[2017-01-04 05:53] LABS: PT 71.1 SEC (9.4-12.5)
--- NOTE | 2017-01-04 07:19 | PN- Housestaff ---
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 He remained afebrile. Patient was seen and examined this morning. Abdominal pain has persisted. He feels nauseous and does not feel like eating. He continues to have dysuria. Review of Systems Constitutional: Reports: see HPI. Objective Last 24 Hrs of Vital Signs/I&O Vital Signs Date Time Temp Pulse Resp B/P B/P Pulse O2 O2 Flow FiO2 Mean Ox Delivery Rate 01/04 1625 98.7 118 20 88/60 93 Room Air 01/04 0730 98.5 118 22 80/58 94 Room Air 01/04 0032 99.0 135 23 118/60 93 05/ 0000 96 Room Air Intake & Output 01/04 1600 01/04 0800 05/ 0000 Intake Total 240 100 Output Total 150 175 Balance 90 -75 Intake, Oral 240 100 Number 3 6 1 Bowel Movements Output, 100 Emesis Output, Urine 50 175 Patient 82.554 kg Weight Physical Exam General Appearance: Alert, Oriented X3, No Acute Distress HEENT: Atraumatic, Mucous Membr. moist/pink Cardiovascular: Regular Rate, Normal S1, Normal S2, No Murmurs, Gallops, Rubs Lungs: Clear to Auscultation Abdomen: Soft, Tender to Palpation, Guarding Extremities: No Clubbing, No Cyanosis, Bilateral Lower Extremities with 3+ Pitting Edema Current Medications: Current Medications Sig/Ghulam Start time Last Medication Dose Route Stop Time Status Admin Benzocaine/Menthol 1 ERICK Q2P PRN 12/29 1330 AC PO Diltiazem HCl 120 MG BID 01/04 2200 AC PO Diltiazem HCl 360 MG DAILY 01/03 1000 DC 01/03 PO 1044 Furosemide 40 MG DAILY 01/02 1000 DC 01/03 PO 1045 Magnesium Oxide 400 MG BID 01/02 1000 AC 01/04 PO 1033 Omeprazole 40 MG DAILY AC 01/03 1022 AC PO Ondansetron HCl 4 MG .STK-MED ONE 01/04 827 DC IM 01/04 0828 Ondansetron HCl 4 MG Q6P PRN 01/03 1745 AC 01/04 IV 1620 Patient Medication 1 UNIT 01/04 AC Teaching ED 01/04 2201 Phenytoin 200 MG BID 12/30 2199 AC 01/04 PO 1033 Phytonadione 5 MG DAILY 01/04 1000 AC 01/04 PO 1033 Potassium Chloride 20 MEQ Q13H 01/05 800 AC 01/04 Dextrose/Sodium 1,000 ML IV 1030 Chloride Sertraline HCl 50 MG DAILY 01/03 1000 AC 01/04 PO 1033 Tramadol HCl 50 MG Q4 PRN 01/02 1545 AC 01/04 PO 1034 Trimethobenzamide HCl 200 MG ONCE ONE 01/03 2030 DC 01/03 IM 01/03 Last 24 Hrs of Lab/Yuri Results Last 24 Hrs of Labs/Mics: Laboratory Tests 01/04/17 1100: Ur Random Creatinine 35.4, Ur Random Sodium 54, Ur Random Potassium 17.9, Fraction Sodium Excret 2.0 H 01/04/17 0600: PT Cancelled, INR Cancelled, CBC w Diff Cancelled, WBC Cancelled, RBC Cancelled, Hgb Cancelled, Hct Cancelled, MCV Cancelled, MCH Cancelled, RDW Cancelled, Plt Count Cancelled, MPV Cancelled, PUBS MCHC Cancelled 01/04/17 0430: Magnesium Cancelled 01/04/17 0430: Anion Gap 11, Estimated GFR 38 L, BUN/Creatinine Ratio 13.3, Magnesium 2.1, PT 71.1 *H, INR 6.90 *H, CBC w Diff MAN DIFF ORDERED, RBC 4.59 L, MCV 85.7, MCH 27.1, RDW 17.9 H, MPV 9.0, Gran % 95.0 H, Lymphocytes % 3.0 L, Monocytes % 1.9, Eosinophils % 0, Basophils % 0.1, Absolute Granulocytes 15.2 H, Segmented Neutrophils 55, Band Neutrophils 37 H, Absolute Lymphocytes 0.5 L, Lymphocytes 5 L, Monocytes 3, Absolute Monocytes 0.3, Absolute Eosinophils 0, Absolute Basophils 0, Platelet Estimate ADEQUATE, Poikilocytosis 1+, PUBS MCHC 31.6 L Microbiology 01/05 720 STOOL: Clostridium difficile Toxin A & B - COLB Orders Radiology Findings: DOPPLER US RUE: No evidence of deep venous thrombosis in the right upper extremity. 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 #Possible postsurgical abscess: CT Abdomen and Pelvis W/ Oral Contrast with similar appearance of the large pelvic mass, postsurgical changes and a possible fluid collection. Temperature spike to 101.6, worsening leukocytosis, though improved today, increasing abdominal tenderness and guarding on exam concerning for intraabdominal infectious process. Currently afebrile and with improving leukocytosis, though abdominal pain and nausea persists. * ID consulted. Appreciate their recs. * Continue full liquid diet. * Monitor off antibiotics for now. 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 Right hemicolectomy was performed for transection of ischemic bowel, however tumor resection was aborted and mass was left intact due to inability to perform radical resection of bladder. Extensive multidisciplinary discussions were initiated to transfer patient to a higher care facility for complete surgical resection, however, [facility] felt that patient would not be suited for inpatient workup at this time. Final pathology negative for malignancy in resected colon sample or 17 lymph nodes. Multiple avenues for repeat tissue sampling were considered but were felt to be infeasible by specialists. * Oncology and general surgery following. Appreciate their recs. * Zofran 4 mg IV Q6H PRN for nausea. * Limit opioid analgesics given ileus. * No plan for transfer to [facility] at this time. Patient will be discharged to [facility]. * Refer to [facility] surgical oncology on discharge (Dr. Asher or Dr. Arriola). * Await ongoing tumor board discussions regarding treatment recommendations. #JUAN: Creatinine elevated to 1.8 today. Baseline creatinine normal. Differential includes pre-renal since patient was off fluids for one day and post-renal in the presence of large pelvic mass adherent to the bladder. * 20 mEq of KCl in D5NS @ 100 cc/hr. * Bladder/renal US ordered to evaluate for obstruction. * Avoid nephrotoxic medications. * Discontinue IV Lasix. #Supratherapeutic INR: INR elevated to 6.90 today. Patient was on warfarin for history of PE. * Start phytonadione 5 mg PO daily. * If patient develops bleeding, administer FFPs and vitamin K. * Continue to hold warfarin. #Sinus tachycardia/SVT: Persistent mild sinus tachycardia. No recurrent episodes of SVT noted. * Resume telemetry monitoring. * Cardiology following. Appreciate their recs. * Change to Cardizem 120 mg PO BID. #RUE edema: Likely secondary to infiltration at IV site. RUE Doppler US negative for DVT. * NTD. #UTI: UCx growing >100,000 colonies/ml of Providencia, sensitive to ceftriaxone and persistent mild dysuria. Received 10 days off IV ceftriaxone. * Monitor off antibiotics. #Problems with Sanchez drainage: Secondary to large pelvic mass elevating bladder base. Per urology, it is suspected that there will be intermittent issues with Sanchez drainage until the mass is resected with reconstruction of the urinary tract. * Urology following. Appreciate their recs. * Patient may require bilateral nephrostomies to divert the urine. * Per urology, if Sanchez is not draining, advance Sanchez without deflating balloon , followed by the instillation of 60 ml of sterile water or saline, then allowing to drain passively. #Anemia: Iron studies consistent with combination of iron deficiency anemia and anemia of chronic inflammation. S/p 5 units of pRBCs this admission. H/H currently stable. * Continue to monitor H/H. * EGD/colonoscopy to be performed as outpatient for evaluation of iron deficiency anemia and rectal bleeding. * Follow up with hematology as outpatient. * Continue iron sulfate 325 mg PO TID. #Loss of consciousness: Most likely represent complex partial seizures, rather than syncope. EEG normal. * Continue telemetry to monitor for arrhythmias that could be associated with lightheadedness. * Continue prior to admission phenytoin 200 mg PO BID. #Anxiety: Per psych, does not meet criteria for psychiatric disorder, with his reaction likely representing a normal response to his newly diagnosed illness. * Increase sertraline to 50 mg PO daily. * Consider cancer center long term care social worker referral on discharge. Diet: Full liquids Fluids: 20 mEq KCl in D5NS @ 100 cc/hr Lytes: Replete to K >4-4.5 and Mg >2 DVT PPx: ALPs CODE: FULL Problem List: 1. Postoperative ileus 2. Malignant neoplasm of appendix 3. Sinus tachycardia 4. Anxiety 5. Urinary (tract) obstruction 6. Pelvic neoplasm 7. Bilateral lower extremity edema 8. Anemia of chronic disease 9. Iron deficiency anemia 10. UTI (urinary tract infection) 11. JUAN (acute kidney injury) Pain Ratin Pain Location: N/A Pain Goal: Remain pain free Pain Plan: Tramadol 50 mg PO Q4H PRN Tomorrow's Labs & Rationales: CBC to monitor H/H in the setting of anemia BMP and Mg to monitor lytes and kidney function LFTs to monitor liver enzymes due to concern for ischemic liver injury in the setting of persistent hypotension and given supratherapeutic INR INR to monitor supratherapeutic INR
[2017-01-04 07:30] VITALS: BP 80/58
--- NOTE | 2017-01-04 09:02 | PN- Student ---
ERIKA RAIN 01/04/17 0833: Subjective Subjective: Medical Student Daily Progress Note: Dale Carrion is a 61yo M admitted on 12/24 for evaluation of an abdominal mass and anemia. He is now POD7 from an exploratory laparotomy and right hemicolectomy. Over the weekend, the patient developed worsening abdominal pain, nausea and vomiting. Imaging shows post-surgical changes and ?abscess near the anastamosis site. Additionally, the patient experienced persistent tachycardia despite being on Cardizem 60mg q8h. Cardizem changed to Cardizem CD 360mg daily. Warfarin has been held since 01/03 in anticipation of possible IR drainage. Opiates have been limited d/t ileus. IV ceftriaxone has been held per surgery. There were no overnight events. This morning the patient states he feels "crummy." He complains of nausea, some vomiting, 6/10 abdominal pain, aching in his legs, and burning associated with the urinary catheter. Current Medications Sig/Ghulam Start time Last Medication Dose Route Stop Time Status Admin Benzocaine/Menthol 1 ERICK Q2P PRN 12/29 1330 AC PO Ceftriaxone Sodium 1,000 MG 0 12/25 2200 DC 01/02 IV 2133 Diltiazem HCl 360 MG DAILY 01/03 1000 AC 01/03 PO 1044 Furosemide 40 MG DAILY 01/02 1000 DC 01/03 PO 1045 Magnesium Oxide 400 MG BID 01/02 1000 AC 01/03 PO 2153 Omeprazole 40 MG DAILY AC 01/03 1022 AC PO Ondansetron HCl 4 MG Q6P PRN 01/03 1745 AC 01/03 IV 2339 Ondansetron HCl 4 MG Q6P PRN 12/28 2145 DC IV Pantoprazole Sodium 40 MG DAILY 12/28 2230 DC 05/ IV 0941 Phenytoin 200 MG BID 12/30 2200 AC 01/03 PO 2153 Phytonadione 5 MG DAILY 01/04 1000 AC PO Potassium Chloride 20 MEQ Q13H 01/04 0800 AC Dextrose/Sodium 1,000 ML IV Chloride Potassium Chloride 40 MEQ Q13H 01/02 1100 DC 01/03 Dextrose/Sodium 1,000 ML IV 0358 Chloride Sertraline HCl 50 MG DAILY 01/03 1000 AC 01/03 PO 1045 Tramadol HCl 50 MG Q4 PRN 01/02 1545 AC 05/07 PO 0745 Trimethobenzamide HCl 200 MG ONCE ONE 01/03 2030 DC 01/03 IM 01/03 Objective Objective: Vital Signs Date Time Temp Pulse Resp B/P B/P Pulse O2 O2 Flow FiO2 Mean Ox Delivery Rate 01/04 0032 99.0 135 23 118/60 93 05 0000 96 Room Air 01/03 1545 98.0 101 18 128/88 96 Room Air Intake & Output 01/04 1600 01/04 0800 05 0000 Intake Total 240 100 Output Total 150 175 Balance 90 -75 Intake, Oral 240 100 Number 6 1 Bowel Movements Output, 100 Emesis Output, Urine 50 175 Patient 182 lb Weight General: diaphoretic, pale, uncomfortable HEENT: atraumatic, dry mucosa. CV: tacycardic, no murmurs Pulmonary: tachypneic, coarse breath sounds GI: abdomen soft, diffusely tender, slight distension in lower abdomen. LLQ is exquisitely tender. Bowel sounds sluggish : urinary catheter in place, showing dark and turbid urine Extremities: skin dry and scaling; BLE appears worse Results Results: Laboratory Tests 01/04/17 0430: Anion Gap 11, Estimated GFR 38 L, BUN/Creatinine Ratio 13.3, PT 71.1 *H, INR 6.90 *H, CBC w Diff MAN DIFF ORDERED, RBC 4.59 L, MCV 85.7, MCH 27.1, RDW 17.9 H, MPV 9.0, Gran % 95.0 H, Lymphocytes % 3.0 L, Monocytes % 1.9, Eosinophils % 0, Basophils % 0.1, Absolute Granulocytes 15.2 H, Segmented Neutrophils 55, Band Neutrophils 37 H, Absolute Lymphocytes 0.5 L, Lymphocytes 5 L, Monocytes 3, Absolute Monocytes 0.3, Absolute Eosinophils 0, Absolute Basophils 0, Platelet Estimate ADEQUATE, Poikilocytosis 1+, PUBS MCHC 31.6 L Assessment/Plan Assessment: Dale Carrion is a 61 yo M admitted on 12/24 for evaluation of an abdominal mass and anemia. He is POD7 s/p exploratory laparotomy, right hemicolectomy, and aborted tumor resection attempt. Plan: Abdominal Pain: worsening over the weekend, diffuse in nature. Associated with nausea and vomiting. Imaging showing post-surgical changes, ileus, ?abscess near anastamosis site. 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 Multiple avenues discussed for tissue biopsy, although all specialties involved felt it to be contraindicated d/t possible mucinous nature of mass with risk for seeding. Recommended followup as outpatient with [facility] surgical oncology - for now. * GI, General Surgery, Urology, Heme/Onc following and recommendations * Follow up with [facility] surg-onc as outpatient Anemia: transfused 5u pRBCs this admission. H&H stabilized. * heme/onc following * monitor daily CBC * transfuse as necessary to keep Hb >7 UTI: complicated by tumor invasion into bladder, with frequent clogging of urinary catheter. IV antibiotics stopped after 10 day course, urine dark and turbid this morning. * Urology following * Continue urinary catheter * Continue irrigation as necessary JUAN: BUN/Cr this AM: 24/1.8. Fluids stopped over the weekend, poor po intake, and poor urine output. Differentials: pre-renal given IVF d/c and poor po intake , post-renal given poor drainage from urinary catheter * Hold Lasix until resolved * 100 cc/hr of D5NS with 20 mEq KCl History of PE: Warfarin on hold for supratherapeutic INR and possible IR intervention. PT/INR this AM: 71.1/6.9. Vitamin K 5mg po has been given. 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 * Continue Dilantin Tachycardia: Cardizem increased to Cardizem CD 360mg daily, but given increasing BUN/Cr cardiology recommended changing to Cardizem 120mg BID. Persistently tachycardic this AM. PE unlikely given prior Heparin drip, current PT/INR. Infection possible given recent surgery, recent UTI, poor urinary catheter drainage. * Cardiology following * Continue Cardizem 120mg BID * Continue to monitor Adjustment Disorder with Depression/Anxiety: On Zoloft 50mg po daily. This aspect of care not to be discussed with family. * Continue Zoloft * Consider referral to cancer center counseling upon discharge Code Status: Full liquid per surgery Diet: FLD DVT prophylaxis: chemical on hold d/t possible intervention, ALPs activity. * Continue Dilantin Tachycardia: Cardizem increased to Cardizem CD 360mg daily, but given increasing BUN/Cr cardiology recommended changing to Cardizem 120mg BID. Persistently tachycardic this AM. PE unlikely given prior Heparin drip, current PT/INR. Infection possible given recent surgery, recent UTI, poor urinary catheter drainage. * Cardiology following * Continue Cardizem CD * Continue to monitor Adjustment Disorder with Depression/Anxiety: On Zoloft 50mg po daily. This aspect of care not to be discussed with family. * Continue Zoloft * Consider referral to cancer center counseling upon discharge Code Status: Full Diet: FLD DVT prophylaxis: chemical on hold d/t possible intervention, ALPs
--- NOTE | 2017-01-04 11:09 | PN- Cardiology ---
Subjective Subjective: * Mild shortness of breath. * Patient now agrees to surgery. * creatinine is 1.8 Objective Vital Signs and I&Os Vital Signs Date Time Temp Pulse Resp B/P B/P Pulse O2 O2 Flow FiO2 Mean Ox Delivery Rate 01/04 0730 98.5 118 22 80/58 94 Room Air 01/04 0032 99.0 135 23 118/60 93 / 0000 96 Room Air 01/03 1545 98.0 101 18 128/88 96 Room Air Intake & Output 01/04 0801/04 0000 01/03 1600 01/03 0800 01/03 0000 Intake Total 240 100 349 340 0130 Output Total 150 175 50 200 150 Balance 90 -75 629 784 5730 Intake, IV 600 800 Intake, Oral 240 100 300 0 400 Number 6 1 1 2 3 Bowel Movements Output, 100 Emesis Output, Urine 50 175 50 200 150 Patient 182 lb 219 lb Weight Weight Standing Scale Measurement Method Physical Exam: General: WD/ overweigth male in NAD; alert and oriented x 3 Neck: no JVD, no carotid bruit Heart: RRR w/o murmur Lungs: clear bilaterally Abdomen: soft, tender Extremities: 2+ bilateral leg edema Assessment/Plan Assessment/Plan * This patient has edema that is likely related to a malignancy rather than decompensated CHF. His EF is normal and he has normal pulmonary pressures. In addition, this patient is active at his baseline without symptoms of ischemia. His ECG does not show any ischemic changes. He has tolerated his surgery well. Continue to monitor on telemetry to assess for any dysrhythmia that may be associated with his lightheadedness. I think it is most likely that his falls and LOC were related to seizures however. * Agree with holding lasix due to a pre-renal state. * SVT noted on telemetry along with intermittent sinus tachycardia. This has improved. Change Cardizem to 120mg BID until creatinine and BP improve. Continue telemetry? No
--- NOTE | 2017-01-04 13:42 | NUR ---
PHYSICAL THERAPY: Pt RECIEVED IN HI-ROWAN'S POSITION IN BED WITH CARVER HELD CLOSE; Pt STATES NAUSEA AND VOMITTING FEELING, NOTES HE FEELS WEAK AND TOO TIRED TO WORK W/ P.T. TODAY. Pt WAS EDUCATED ON EFFECTS OF PROLONGED BED REST AND BENEFITS OF OOB; Pt CONTINUES TO STATE "NOT TODAY." RN WAS NOTIFIED. WILL F/U APPROPRIATE.
--- NOTE | 2017-01-04 16:13 | ULTRASOUND REPORT ---
EXAMINATION: US TRIPLEX UPPER EXTREMITY, RIGHT CLINICAL INFORMATION: Right upper extremity swelling. History of pulmonary embolism. COMPARISON: None TECHNIQUE: Color-flow triplex imaging with spectral analysis and compression Doppler were performed on the right upper extremity. FINDINGS: The right internal jugular vein and subclavian vein demonstrate normal color flow. The axillary vein and paired brachial veins are patent and compressible. The cephalic and basilic veins are patent and compressible. IMPRESSION: No evidence of deep venous thrombosis in the right upper extremity.
[2017-01-04 16:25] VITALS: BP 88/60
--- NOTE | 2017-01-04 16:43 | PN- Oncology ---
Subjective Subjective: He reports abdominal pain is worse this weekend. He has no fever or chills. He has some nausea. He continues to have burning sensation with urination (price in place) and bowel movement. Bowel movement is loose. Review of Systems Constitutional: Reports: weakness. Denies: chills, fever. Cardiovascular: Reports: edema, peripheral edema. Denies: chest pain. Gastrointestinal: Reports: abdominal pain, diarrhea, nausea. Genitourinary: Reports: dysuria. Immunologic/Allergic: Denies: lymphadenopathy. All Other Systems: Reviewed and Negative Objective Vital Signs and I&Os Vital Signs Date Time Temp Pulse Resp B/P B/P Pulse O2 O2 Flow FiO2 Mean Ox Delivery Rate 01/04 1625 98.7 118 20 88/60 93 Room Air 01/04 0730 98.5 118 22 80/58 94 Room Air 01/04 0032 99.0 135 23 118/60 93 / 0000 96 Room Air Intake & Output 01/04 1600 01/04 0800 /08 0000 01/03 1600 01/03 0800 / 0000 Intake Total 240 100 975 933 6214 Output Total 150 175 50 200 150 Balance 90 -75 083 433 6711 Intake, IV 600 800 Intake, Oral 240 100 300 0 400 Number 3 6 1 1 2 3 Bowel Movements Output, 100 Emesis Output, Urine 50 175 50 200 150 Patient 82.554 kg 99.45 kg Weight Weight Standing Scale Measurement Method Physical Exam General Appearance: alert, awake, anxious, thin Respiratory: normal breath sounds, no respiratory distress, quiet respiration Cardiovascular: tachycardia Abdomen: distention, guarding, tenderness, mass Extremities: 4+BLE edema Neurologic/Psychiatric: alert, oriented x 3 Current Medications: Current Medications Sig/Ghulam Start time Last Medication Dose Route Stop Time Status Admin Benzocaine/Menthol 1 ERICK Q2P PRN 12/29 1330 AC PO Diltiazem HCl 120 MG BID 01/04 2200 AC PO Diltiazem HCl 360 MG DAILY 01/03 1000 DC 01/03 PO 1044 Furosemide 40 MG DAILY 01/02 1000 DC 01/03 PO 1045 Magnesium Oxide 400 MG BID 01/02 1000 AC 01/04 PO 1033 Omeprazole 40 MG DAILY AC 01/03 1022 AC PO Ondansetron HCl 4 MG Q6P PRN 01/03 1745 AC 01/04 IV 1620 Ondansetron HCl 4 MG Q6P PRN 12/28 2145 DC IV Patient Medication 1 UNIT 01/04 AC Teaching ED 01/04 2201 Phenytoin 200 MG BID 12/30 2199 AC 01/04 PO 103 Phytonadione 5 MG DAILY 01/04 1000 AC 01/04 PO 1033 Potassium Chloride 20 MEQ Q13H 01/04 08 AC 01/04 Dextrose/Sodium 1,000 ML IV 1030 Chloride Sertraline HCl 50 MG DAILY 01/03 1000 AC 01/04 PO 1033 Tramadol HCl 50 MG Q4 PRN 01/02 1545 AC 01/04 PO 1034 Trimethobenzamide HCl 200 MG ONCE ONE 01/03 2030 DC 01/03 IM 01/03 Results Last 24 Hours of Lab Results: Laboratory Tests 01/04 01/04 01/04 1100 0600 0430 Chemistry Magnesium Cancelled Coagulation PT Cancelled INR Cancelled Hematology CBC w Diff Cancelled WBC Cancelled RBC Cancelled Hgb Cancelled Hct Cancelled MCV Cancelled MCH Cancelled RDW Cancelled Plt Count Cancelled MPV Cancelled PUBS MCHC Cancelled Urines Ur Random Creatinine (mg/dL) 35.4 Ur Random Sodium (30 - 90 mmol/L) 54 Ur Random Potassium (mmol/L) 17.9 Fraction Sodium Excret (<1% %) 2.0 H 01/040 Chemistry Sodium (137 - 145 mmol/L) 136 L Potassium (3.5 - 5.1 mmol/L) 4.1 Chloride (98 - 107 mmol/L) 105 Carbon Dioxide (22 - 30 mmol/L) 20 L Anion Gap (5 - 16) 11 BUN (9 - 20 mg/dL) 24 H Creatinine (0.7 - 1.2 mg/dL) 1.8 H Estimated GFR (>60 ml/min) 38 L BUN/Creatinine Ratio (7 - 25 %) 13.3 Magnesium (1.6 - 2.3 mg/dL) 2.1 Coagulation PT (9.4 - 12.5 SEC) 71.1 *H INR (0.90 - 1.17) 6.90 *H Hematology CBC w Diff MAN DIFF ORDERED WBC (4.8 - 10.8 /CUMM) 15.9 H RBC (4.70 - 6.10 /CUMM) 4.59 L Hgb (14.0 - 18.0 G/DL) 12.4 L Hct (42 - 52 %) 39.3 L MCV (80.0 - 94.0 FL) 85.7 MCH (27.0 - 31.0 PG) 27.1 RDW (11.5 - 14.5 %) 17.9 H Plt Count (130 - 400 /CUMM) 300 MPV (7.4 - 10.4 FL) 9.0 Gran % (42.2 - 75.2 %) 95.0 H Lymphocytes % (20.5 - 51.1 %) 3.0 L Monocytes % (1.7 - 9.3 %) 1.9 Eosinophils % (0 - 5 %) 0 Basophils % (0.0 - 2.0 %) 0.1 Absolute Granulocytes (1.4 - 6.5 /CUMM) 15.2 H Segmented Neutrophils (42.2 - 75.2 %) 55 Band Neutrophils (0.0 - 5.0 %) 37 H Absolute Lymphocytes (1.2 - 3.4 /CUMM) 0.5 L Lymphocytes (20.5 - 51.1 %) 5 L Monocytes (1.7 - 9.3 %) 3 Absolute Monocytes (0.10 - 0.60 /CUMM) 0.3 Absolute Eosinophils (0.0 - 0.7 /CUMM) 0 Absolute Basophils (0.0 - 0.2 /CUMM) 0 Platelet Estimate (ADEQUATE) ADEQUATE Poikilocytosis 1+ PUBS MCHC (33.0 - 37.0 G/DL) 31.6 L Recent Imaging Studies: CT abdomen/pelvis 01/02/2017: Similar appearance of the large pelvic mass. Mass effect upon the bladder. No bowel obstruction. Postsurgical changes status post partial resection of the right colon. At the operative site, there is a nonopacified area of higher than simple fluid attenuation which could represent a collection postoperatively. There is a small volume of free fluid with free intraperitoneal air remaining. Persistent moderate hiatal hernia. Assessment/Plan Assessment/Recommendations: Mr. Carrion is a 61-year-old male with history of seizure, PE, abdominal mass in 2014 who presents with symptomatic anemia. Imaging demonstrated a pelvic mass with possible communication with bowel but no definite with bladder. He was taken to OR on 12/28 for exploratory laparoscopy by Dr. Proctor. Per Dr. 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 Dr. Proctor did right hemicolectomy. The mass was left intact. Due to the adherence to the bladder, Dr. Proctor has recommended transfer to higher facility for complete surgical resection. Transfer to [facility] was discussed but was placed on hold due to concern on whether patient would benefit from chemotherapy with radiation prior to surgery. Pathology demonstrated tubular adenoma and 17 negative lymph node. IR felt they are not able to do a needle biopsy given the mucinous nature/mucoceles appearance. Dr. Emanuel felt that tumor will not be able to be biopsied endoscopically. It is unclear if a repeat cystoscopy may be done to evaluate mass and biopsy. He currently has no tissue diagnosis. It will be difficult to treat him without pathologic diagnosis. He now has a possible fluid collection in the abdomen at operative site. 1. Consider cystoscopy with biopsy if feasible 2. Referral to [facility] Surgical oncology (Dr. Asher or Dr. Arriola) 3. Discussion with tumor board regarding recommendations on surgery and chemotherapy Please call [phone] with any questions. Problem List: 1. Bilateral lower extremity edema 2. Anemia of chronic disease 3. History of pulmonary embolism 4. Abdominal mass
--- NOTE | 2017-01-04 17:23 | PN- General Surgery ---
Surgical Brief Attending Note Brief Attending Note: Patient now has developed watery diarrhea and nausea. A specimen is awaiting collection for C. difficile testing. He is abdominal pain, more left-sided today. Yesterday it was right-sided. It is unclear if there is an intra- abdominal process related to his recent surgery occurring. His leukocytosis is resolving off antibiotics. He has not had recurrent fever. Recommend nothing by mouth until his nausea and vomiting resolved. Consider abdominal x-ray if it worsens. Hold Coumadin awaiting resolution of his supratherapeutic INR. We'll readdress need for IR drainage of his pericolonic fluid collection pending his clinical course. Currently I do not feel it represents a source of infection. It is most likely hematoma. Although there was a small amount of free air on his recent CT, I feel this is more in keeping with recent laparotomy rather than an anastomotic leak. Again, there is no contrast extravasation on his CT scan. Await C differential results. Gentle hydration given hypotension, hemoconcentration and worsening renal dysfunction. He is likely dehydrated related to his diarrhea and poor by mouth intake.
--- NOTE | 2017-01-04 18:20 | Cons- Infect Disease ---
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 He also noted dysuria and bloody bowel movements prior to admission. On admission he was afebrile. Laboratory data revealed a white blood cell count of 10,000, H&H 8 and 24, BUN/creatinine 25 and 1.0, with normal liver enzymes, INR 1.95. Urinalysis 25-50 RBC/packed WBCs. Chest x-ray revealed bibasilar atelectasis. Dopplers of both lower extremities were negative for DVT but revealed a right leg popliteal cyst. CTA of the chest was negative. CT of the abdomen and pelvis revealed a large mass in the lower central pelvis, impinging upon the vessels along the pelvic sidewall, with air collections within the mass, which appeared to be engulfing bowel loops. He was begun on Ceftriaxone. A Sanchez catheter was inserted on December 25 and has remained in place. He was evaluated by Oncology, GI, Surgery, Neurology, Urology and GI and on December 28 he was taken to the OR for an exploratory laparotomy. He underwent a right hemicolectomy, with re-anastomosis, but the large pelvic tumor was unable to be resected as it was fused to the bladder. A preop cystoscopy was performed for bilateral ureteral stent insertion, which was unsuccessful. He was given Unasyn perioperatively and was continued on Ceftriaxone postoperatively until January 03. Postop he has continued to complain of abdominal pain. He has also had issues with inadequate drainage from the Sanchez catheter. 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 His white blood cell count increased to 18,000 postop, decreased to 10,000 by January 01, but again increased to 22,000 on January 03, with persistent bandemia since surgery. A CT scan of the abdomen and pelvis on January 02 revealed the pelvic mass, containing foci of gas and abutting the sigmoid colon with nodularity in the region of the left aspect of the rectum, with a new area of nonopacification in the right pelvis adjacent to a segment of colon, measuring 5.8 x 3.9 cm. At present he complains of abdominal pain and dysuria despite the Sanchez catheter. He also reports occasional shortness of breath and chest discomfort. He notes nausea, with an episode of emesis this morning. He did have loose stools reported several days ago but, more recently, he has had soft/formed stools. Allergies/Medications Allergies: Coded Allergies: NO KNOWN ALLERGIES (01/11/14) Home Med List: Multivitamin (Daily Multiple Vitamin) 1 EACH TABLET 1 TAB PO DAILY SUPPLEMENT (Reported) Phenytoin Sodium Extended 100 MG CAPSULE 2 CAP PO BID SEIZURES (Reported) Sertraline HCl 25 MG TABLET 25 MG PO DAILY mental health Warfarin Sodium 7.5 MG TABLET 0.5-1 TAB PO AD BLOOD THINNER (Reported) Past History Travel History Traveled to [place] past 21 day No Medical History Blood Transfusion Hx: No Neurological: seizure, childhood encephalitis EENT: NONE Cardiovascular: syncope (possible unwitnessed) Respiratory: pulmonary embolism (06/2014) Gastrointestinal: GERD (mild), hiatal hernia Hepatic: NONE Renal: benign prost hyperplasia Musculoskeletal: osteopenia; TL compression fractures Psychiatric: NONE Endocrine: osteopenia Blood Disorders: anemia, PE (06/2014) Cancer(s): NONE 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 MOTHER, , Age 50-60; Cause: Cancer of unknown origin. BROTHER ([employer]). Relation not specified for: *No pertinent family history Psychosocial History Where Do You Live? Home Who Do You Live With? spouse (upstairs from his brother), alone Services at Home: None Primary Language: Tajik Smoking Status: Light Tobacco Smoker ETOH Use: denies use Illicit Drug Use: denies illicit drug use Living Will? 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 No children. Light cigarette smoker. No EtOH or illicit drugs. Lives alone upstairs from his brother. Unemployed, on disability. Functional Ability ADLs Independent: dressing, eating, toileting, bathing. Ambulation: independent IADLs Independent: shopping, housework, finances, food prep, telephone, transportation , medication admin. Employment History Employment: Disability ECHO Results (as available) Date of last Echo 07/06/14 Review of Systems Review of Systems Constitutional: Reports: weakness. Cardiovascular: Reports: see HPI. Respiratory: Reports: see HPI. GI: Reports: see HPI. Genitourinary: Reports: see HPI. All Other Systems: Reviewed and Negative Exam & Diagnostic Data Last 24 Hrs of Vital Signs/I&O Vital Signs Date Time Temp Pulse Resp B/P B/P Pulse O2 O2 Flow FiO2 Mean Ox Delivery Rate 01/04 1625 98.7 118 20 88/60 93 Room Air 01/04 0730 98.5 118 22 80/58 94 Room Air 01/04 0032 99.0 135 23 118/60 93 05/08 0000 96 Room Air Intake & Output 01/04 1600 01/04 0800 01/04 0000 Intake Total 240 100 Output Total 150 175 Balance 90 -75 Intake, Oral 240 100 Number 3 6 1 Bowel Movements Output, 100 Emesis Output, Urine 50 175 Patient 182 lb Weight Physical Exam Other Physical Findings: He is awake and alert, appearing pale and chronically ill, but in no acute distress. He is afebrile. Skin reveals scattered ecchymoses. HEENT exam is negative. Neck is supple with no adenopathy. Lungs decreased breath sounds bilaterally. Heart regular rhythm with no murmur. Abdomen is soft, tender on palpation diffusely, with no guarding or rebound, with positive bowel sounds; incision is clean, with no erythema or drainage. Back no CVA tenderness. Extremities right upper extremity edema compared to the left; 2-3+ bilateral lower extremity edema. Neuro is without focality. Sanchez catheter is in place. Last 24 Hours of Lab Results: Laboratory Tests 01/04 01/04 01/04 1100 0600 0430 Chemistry Magnesium Cancelled Coagulation PT Cancelled INR Cancelled Hematology CBC w Diff Cancelled WBC Cancelled RBC Cancelled Hgb Cancelled Hct Cancelled MCV Cancelled MCH Cancelled RDW Cancelled Plt Count Cancelled MPV Cancelled PUBS MCHC Cancelled Urines Ur Random Creatinine (mg/dL) 35.4 Ur Random Sodium (30 - 90 mmol/L) 54 Ur Random Potassium (mmol/L) 17.9 Fraction Sodium Excret (<1% %) 2.0 H 08 0430 Chemistry Sodium (137 - 145 mmol/L) 136 L Potassium (3.5 - 5.1 mmol/L) 4.1 Chloride (98 - 107 mmol/L) 105 Carbon Dioxide (22 - 30 mmol/L) 20 L Anion Gap (5 - 16) 11 BUN (9 - 20 mg/dL) 24 H Creatinine (0.7 - 1.2 mg/dL) 1.8 H Estimated GFR (>60 ml/min) 38 L BUN/Creatinine Ratio (7 - 25 %) 13.3 Magnesium (1.6 - 2.3 mg/dL) 2.1 Coagulation PT (9.4 - 12.5 SEC) 71.1 *H INR (0.90 - 1.17) 6.90 *H Hematology CBC w Diff MAN DIFF ORDERED WBC (4.8 - 10.8 /CUMM) 15.9 H RBC (4.70 - 6.10 /CUMM) 4.59 L Hgb (14.0 - 18.0 G/DL) 12.4 L Hct (42 - 52 %) 39.3 L MCV (80.0 - 94.0 FL) 85.7 MCH (27.0 - 31.0 PG) 27.1 RDW (11.5 - 14.5 %) 17.9 H Plt Count (130 - 400 /CUMM) 300 MPV (7.4 - 10.4 FL) 9.0 Gran % (42.2 - 75.2 %) 95.0 H Lymphocytes % (20.5 - 51.1 %) 3.0 L Monocytes % (1.7 - 9.3 %) 1.9 Eosinophils % (0 - 5 %) 0 Basophils % (0.0 - 2.0 %) 0.1 Absolute Granulocytes (1.4 - 6.5 /CUMM) 15.2 H Segmented Neutrophils (42.2 - 75.2 %) 55 Band Neutrophils (0.0 - 5.0 %) 37 H Absolute Lymphocytes (1.2 - 3.4 /CUMM) 0.5 L Lymphocytes (20.5 - 51.1 %) 5 L Monocytes (1.7 - 9.3 %) 3 Absolute Monocytes (0.10 - 0.60 /CUMM) 0.3 Absolute Eosinophils (0.0 - 0.7 /CUMM) 0 Absolute Basophils (0.0 - 0.2 /CUMM) 0 Platelet Estimate (ADEQUATE) ADEQUATE Poikilocytosis 1+ PUBS MCHC (33.0 - 37.0 G/DL) 31.6 L Last 24 Hours of Yuri Results: Urine culture December 24 greater than 100,000 colonies of Providencia resistant to Ampicillin, Cefazolin, Augmentin, Ceftazidime and Nitrofurantoin Stool C. difficile December 26 negative Blood cultures January 02 negative Diagnostic Data Recent Imaging Findings: Chest x-ray December 24 bibasilar atelectasis Dopplers of both lower extremities December 24 revealed a right popliteal cyst with no evidence of DVT CTA of the chest December [address] of the abdomen and pelvis December 24 revealed a large mass in the lower central pelvis, impinging upon the vessels along the pelvic sidewall, with air collections within the mass, which appeared to be engulfing bowel loops. Renal ultrasound December 25 revealed the heterogeneous pelvic mass, with no hydronephrosis or nephrolithiasis Abdominal x-ray January 02 revealed a large amount of free air in the abdomen, with mild gaseous distention of the stomach and moderate distention of the hepatic and splenic flexures of the colon with air-fluid levels, likely representing an ileus CT scan of the abdomen and pelvis January 02 revealed the pelvic mass, containing foci of gas and abutting the sigmoid colon with nodularity in the region of the left aspect of the rectum, with a new area of nonopacification in the right pelvis adjacent to a segment of colon, measuring 5.8 x 3.9 cm. Doppler of the right upper extremity January 04 negative Assessment/Plan Assessment/Plan Impression: This is a 61-year-old man with a history of pulmonary embolism, maintained on Coumadin, seizure disorder and a pelvic mass first noted over 2 years prior to admission, not pursued by the patient, admitted on December 24 because of progressive lower extremity edema and anemia, with the CT scan redemonstrating the pelvic mass, felt to be engulfing bowel loops, status post exploratory laparotomy one week ago, with a right hemicolectomy performed but with the pelvic tumor unable to be resected secondary to its fusion to the bladder, with a transient fever 2 days ago and a leukocytosis yesterday, with a recent CT scan demonstrating a new collection at the operative site. This collection may represent an abscess, given the recent fever and leukocytosis, and, if his fevers recur or leukocytosis persists, IR drainage will need to be considered. An anastomotic leak must also be considered, with his persistent abdominal pain and with free air on the recent CT scan, though the free air can be explained by his recent surgery. Other possible sources of infection include the urinary tract, with the indwelling Sanchez catheter, pneumonia, though his respiratory status appears relatively stable, or C. difficile, with recent diarrhea, though his more recent stools have been reportedly soft/formed.. His recent abdominal x-ray suggests an ileus, which may explain his abdominal discomfort. The Ceftriaxone was discontinued 2 days ago and, as he has remained stable and his white blood cell count has actually decreased, he can continue to be followed off antibiotics pending further evaluation. Suggestion: 1. Urinalysis and urine culture 2. Stool for C. difficile if diarrhea recurs 3. Would pursue CT-guided aspiration of the new pelvic collection if his fever recurs or white blood cell count remains elevated. 4. Further evaluation/management of his ileus per Surgery 5. Consider removal of the Sanchez catheter if okay with Urology 6. Continue to follow off antibiotics pending above Consult Acknowledgment - Thank you for your consult request.
--- NOTE | 2017-01-04 18:40 | NUR ---
LATE ENTRY FROM 1500 - REPORTED TO MD THAT PT'S OUTPUT WAS 75 CC FOR 7-3 SHIFT.
--- NOTE | 2017-01-04 20:57 | ULTRASOUND REPORT ---
EXAMINATION: Ultrasound of kidneys CLINICAL INFORMATION: : pelvic mass elevating bladder base Presumptive Dx: Rule out urinary tract obstruction Signs Symptoms: JUAN, problems with Sanchez drainage secondary to large pelvic mass at bladder base. COMPARISON: CT abdomen pelvis 01/02/2017. Renal ultrasound 12/25/2016 TECHNIQUE: Real-time imaging of the kidneys and bladder. Color Doppler exam utilized. FINDINGS: Exam performed portable. RIGHT KIDNEY: 8 x 4.8 x 3.6 cm (SAG x AP x TRV). The kidney is normal in size, contour, and echogenicity. Renal cortical thickness is normal. No calculi or focal parenchymal lesions. No hydronephrosis. LEFT KIDNEY: 11.4 x 5.7 x 5.4 cm (SAG x AP x TRV). The kidney is normal in size, contour, and echogenicity. Renal cortical thickness is normal. No calculi or focal parenchymal lesions. No hydronephrosis. BLADDER: The bladder is empty. Sanchez catheter within the bladder. Other: Small amount of fluid in Morison's pouch. The known pelvic mass not well seen. Bandage over region of exploratory laparoscopy. IMPRESSION: 1. Normal ultrasound of right and left kidney. No renal hydronephrosis. 2. Bladder empty. Sanchez catheter in bladder.
[2017-01-05 00:31] VITALS: BP 104/70
[2017-01-05 07:50] VITALS: BP 98/62
--- NOTE | 2017-01-05 07:56 | PN- Housestaff ---
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 Heart rate is 96-113 with no overnight events. Subjective: Afebrile and hemodynamically stable. He was mildly hypotensive overnight for which he was continued on IV fluids. His urine output is 200 mL for the past 24 hours. Patient had nausea and 4 bowel movements yesterday. Patient was kept nothing by mouth overnight as per surgery recommendations. Abdominal pain improved to 2/10 this a.m. Review of Systems Constitutional: Reports: see HPI. Cardiovascular: Denies: chest pain, orthopena, palpitations. Respiratory: Denies: cough, short of breath. Gastrointestinal: Reports: abdominal pain (10/09), diarrhea, nausea. Denies: bloating, constipation, distention. Genitourinary: Reports: no symptoms. Objective Last 24 Hrs of Vital Signs/I&O Vital Signs Date Time Temp Pulse Resp B/P B/P Pulse O2 O2 Flow FiO2 Mean Ox Delivery Rate 01/05 0947 97 112/72 01/05 0750 97.6 96 16 98/62 97 Room Air 01/05 0031 98.7 112 20 104/70 95 Room Air 01/04 2232 113 100/70 01/04 1625 98.7 118 20 88/60 93 Room Air Intake & Output 01/05 1600 01/05 0800 01/05 0000 Intake Total 800 300 Output Total 100 50 Balance 700 250 Intake, IV 800 Intake, Oral 0 300 Number 1 3 Bowel Movements Output, 25 Emesis Output, Urine 75 50 Physical Exam General Appearance: Alert, Oriented X3, Cooperative, No Acute Distress HEENT: Atraumatic, PERRLA, EOMI, Mucous Membr. moist/pink Cardiovascular: Regular Rate, Normal S1, Normal S2, No Murmurs Lungs: Clear to Auscultation, Normal Air Movement Abdomen: Soft, tenderness over the surgical incision Neurological: Normal Speech Extremities: No Clubbing, No Cyanosis, No Edema Current Medications: Current Medications Sig/Ghulam Start time Last Medication Dose Route Stop Time Status Admin Benzocaine/Menthol 1 ERICK Q2P PRN 12/29 1330 AC PO Dextrose/Sodium 1,000 ML Q20H 01/05 0330 CAN Chloride IV 05/09 2329 Diltiazem HCl 120 MG BID 01/04 2200 AC 01/05 PO 0947 Diltiazem HCl 360 MG DAILY 01/03 1000 DC 01/03 PO 1044 Magnesium Oxide 400 MG BID 01/02 1000 AC 01/04 PO 2231 Omeprazole 40 MG DAILY AC 01/03 1022 AC PO Ondansetron HCl 4 MG .STK-MED ONE 01/04 1619 DC IM 01/04 1620 Ondansetron HCl 4 MG Q6P PRN 01/03 1745 AC 01/05 IV 0327 Patient Medication 1 UNIT 01/04 DC 01/04 Teaching ED 01/04 2201 223 Phenytoin 200 MG BID 12/30 220 AC 01/05 PO 0947 Phytonadione 5 MG DAILY 01/04 1000 AC 01/04 PO 1033 Potassium Chloride 20 MEQ Q6H 01/05 0915 AC 01/05 Dextrose/Sodium 1,000 ML IV 0948 Chloride Potassium Chloride 20 MEQ Q13H 01/04 08 DC 01/04 Dextrose/Sodium 1,000 ML IV 2231 Chloride Sertraline HCl 50 MG DAILY 01/03 1000 AC 01/05 PO 0948 Tramadol HCl 50 MG Q4 PRN 01/02 1545 AC 01/04 PO 1034 Last 24 Hrs of Lab/Yuri Results Last 24 Hrs of Labs/Mics: Laboratory Tests 01/05/17 0730: Anion Gap 10, Estimated GFR 26 L, BUN/Creatinine Ratio 14.0, Magnesium 2.5 H, Total Bilirubin 0.3, Direct Bilirubin 0.3, AST 17, ALT 43, Alkaline Phosphatase 152 H, Total Protein 4.1 L, Albumin 1.7 L, PT 20.5 H, INR 1.97 H, CBC w Diff MAN DIFF ORDERED, RBC 3.73 L, MCV 85.6, MCH 27.5, RDW 18.4 H, MPV 8.2, Gran % 94.8 H, Lymphocytes % 2.9 L, Monocytes % 2.3, Eosinophils % 0, Basophils % 0 L, Absolute Granulocytes 20.0 H, Segmented Neutrophils 52, Band Neutrophils 39 H, Absolute Lymphocytes 0.6 L, Lymphocytes 8 L, Monocytes 1 L , Absolute Monocytes 0.5, Absolute Eosinophils 0, Absolute Basophils 0, Platelet Estimate ADEQUATE, Polychromasia 1+, Hypochromic-Microcytic 1+, Anisocytosis 1+, PUBS MCHC 32.2 L 01/04/17 1100: Ur Random Creatinine 35.4, Ur Random Sodium 54, Ur Random Potassium 17.9, Fraction Sodium Excret 2.0 H Microbiology 01/04 425 STOOL: Clostridium difficile Toxin A & B - RECD Assessment/Plan Assessment: 61 y/o M with PMHx of seizure disorder on Dilantin, PE in 2013 on Coumadin and BPH who is admitted with symptomatic anemia, bilateral lower extremity edema and large pelvic mass s/p exploratory laparotomy revealing 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 #Possible postsurgical abscess: CT Abdomen and Pelvis W/ Oral Contrast with similar appearance of the large pelvic mass, postsurgical changes and a possible fluid collection. Initially spike temperature to 101.6 with worsening leukocytosis, WBCs is still 21 this morning. Abdominal pain improved this morning however he still have abdominal tenderness and guarding on exam concerning for intraabdominal infectious process. Currently afebrile but leukocytosis worsened compared to yesterday. Nausea and diarrhea persists. * Await C. difficile, if negative we'll repeat CT with oral contrast. * Surgery will discuss with IR for possible needle aspiration of pericolonic process. * Patient is nothing by mouth as per surgical recommendation. * Continue to monitor off antibiotics for now. 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 Right hemicolectomy was performed for transection of ischemic bowel, however tumor resection was aborted and mass was left intact due to inability to perform radical resection of bladder. Extensive multidisciplinary discussions were initiated to transfer patient to a higher care facility for complete surgical resection, however, [facility] felt that patient would not be suited for inpatient workup at this time. Final pathology negative for malignancy in resected colon sample or 17 lymph nodes. Multiple avenues for repeat tissue sampling were considered but were felt to be infeasible by specialists. * Oncology and general surgery following. Appreciate their recs. * Zofran 4 mg IV Q6H PRN for nausea. * Limit opioid analgesics given ileus. * No plan for transfer to [facility] at this time. Patient will be discharged to [facility]. * Refer to [facility] surgical oncology on discharge (Dr. Asher or Dr. Arriola). * Await ongoing tumor board discussions regarding treatment recommendations. #JUAN: Creatinine bumped to 1.8 yesterday and 2.5 this morning, even though patient was on IV fluid. Baseline creatinine normal. BUN/creatinine ratio <15 with an fractionated sodium being more than 2% yesterday(however patient was on Lasix). Ultrasound was done and excluded postrenal obstruction * Continue 20 mEq of KCl in D5NS @ 150 cc/hr. * We will order urine lytes today as Lasix was stopped yesterday morning. * Avoid nephrotoxic medications. * We place a nephrology consult #Supratherapeutic INR: INR elevated to 6.90 yesterday. Patient was on warfarin for history of PE. Warfarin was put and hold, patient received vitamin K. This morning INR is 1.9. * DC phytonadione * Continue to hold warfarin. #Sinus tachycardia/SVT: Persistent mild sinus tachycardia. No recurrent episodes of SVT noted. * We will discuss the need of telemetry * Change to Cardizem 120 mg PO BID. #RUE edema: Likely secondary to infiltration at IV site. RUE Doppler US negative for DVT. * NTD. #UTI: UCx growing >100,000 colonies/ml of Providencia, sensitive to ceftriaxone and persistent mild dysuria. Received 10 days off IV ceftriaxone. * Monitor off antibiotics. #Problems with Sanchez drainage: Secondary to large pelvic mass elevating bladder base. Per urology, it is suspected that there will be intermittent issues with Sanchez drainage until the mass is resected with reconstruction of the urinary tract. * Urology is following * Patient may require bilateral nephrostomies to divert the urine. * Per urology, if Sanchez is not draining, advance Sanchez without deflating balloon , followed by the instillation of 60 ml of sterile water or saline, then allowing to drain passively. #Anemia: Iron studies consistent with combination of iron deficiency anemia and anemia of chronic inflammation. S/p 5 units of pRBCs this admission. H/H currently stable. * Continue to monitor H/H. * EGD/colonoscopy to be performed as outpatient for evaluation of iron deficiency anemia and rectal bleeding. * Follow up with hematology as outpatient. * Continue iron sulfate 325 mg PO TID. #Loss of consciousness: Most likely represent complex partial seizures, rather than syncope. EEG normal. * Continue prior to admission phenytoin 200 mg PO BID. #Anxiety: Per psych, does not meet criteria for psychiatric disorder, with his reaction likely representing a normal response to his newly diagnosed illness. * Continue sertraline to 50 mg PO daily. * Consider cancer center social media content specialist referral on discharge. * Patient does not want his family to know about him seeing psych. Diet: Nothing by mouth Fluids: 20 mEq KCl in D5NS @ 150 cc/hr DVT PPx: ALPs CODE: FULL Problem List: 1. JUAN (acute kidney injury) 2. Postoperative ileus 3. Malignant neoplasm of appendix 4. Anxiety 5. Sinus tachycardia Pain Ratin Pain Location: Abdomen Pain Goal: Remain pain free Pain Plan: See assessment and plan Tomorrow's Labs & Rationales: CBC for WBCs BEP for Cr and BUN Consulting Request: Consulting Specialty: Nephrology Consulting Physician: DR siddiqui Reason for Consult: abdominal mass with bladder involvement
[2017-01-05 08:25] LABS: ABSOLUTE EOSINOPHIL COUNT 0 /CUMM (0.0-0.7); ABSOLUTE LYMPH COUNT 0.6 /CUMM (1.2-3.4); ABSOLUTE MONOCYTE COUNT 0.5 /CUMM (0.10-0.60); BASOPHIL % 0 % (0.0-2.0); EOSINOPHIL % 0 % (0-5); GRANULOCYTE % 94.8 % (42.2-75.2); RED BLOOD CELL CT 3.73 /CUMM (4.70-6.10)
[2017-01-05 08:35] LABS: PT 20.5 SEC (9.4-12.5)
--- NOTE | 2017-01-05 08:35 | PN- Student ---
ERIKA RAIN 01/05/17 0804: Subjective Subjective: Medical Student Daily Progress Note: Dale Carrion is a 61 yo M admitted on 12/24 for evaluation of abdominal mass and anemia. He is POD8 from exploratory laparotomy with right hemicolectomy and aborted attempt at tumor resection. Overnight, the patient continued to have nausea and vomiting. This morning he reports continued nausea, some vomiting, diarrhea, and abdominal pain which he rates as 2/10. He states he overall feels better than yesterday. He denies headache, vision changes, chest pain, and shortness of breath. Current Medications Sig/Ghulam Start time Last Medication Dose Route Stop Time Status Admin Benzocaine/Menthol 1 ERICK Q2P PRN 12/29 1330 AC PO Dextrose/Sodium 1,000 ML Q20H 01/05 0330 CAN Chloride IV 01/05 2329 Diltiazem HCl 120 MG BID 01/04 220 AC 01/04 PO 2232 Diltiazem HCl 360 MG DAILY 01/03 1000 DC 01/03 PO 1044 Magnesium Oxide 400 MG BID 01/02 1000 AC 01/04 PO 2231 Omeprazole 40 MG DAILY AC 01/03 1022 AC PO Ondansetron HCl 4 MG .STK-MED ONE 01/04 1619 DC IM 01/04 1620 Ondansetron HCl 4 MG .STK-MED ONE 01/04 0827 DC IM 01/04 0828 Ondansetron HCl 4 MG Q6P PRN 01/03 1745 AC 01/05 IV 0327 Patient Medication 1 UNIT 01/04 DC 01/04 Teaching ED 01/04 220 2231 Phenytoin 200 MG BID 12/30 2200 AC 01/04 PO 2232 Phytonadione 5 MG DAILY 01/04 1000 AC 01/04 PO 1033 Potassium Chloride 20 MEQ Q13H 01/04 0800 AC 01/04 Dextrose/Sodium 1,000 ML IV 2231 Chloride Sertraline HCl 50 MG DAILY 01/03 1000 AC 01/04 PO 1033 Tramadol HCl 50 MG Q4 PRN 01/02 1545 AC 01/04 PO 1034 Objective Objective: Vital Signs Date Time Temp Pulse Resp B/P B/P Pulse O2 O2 Flow FiO2 Mean Ox Delivery Rate 01/05 947 97 112/72 01/05 0750 97.6 96 16 98/62 97 Room Air 01/05 0031 98.7 112 20 104/70 95 Room Air 01/04 2232 113 100/70 0508 1625 98.7 118 20 88/60 93 Room Air Intake & Output 01/05 1600 01/05 0800 01/05 0000 Intake Total 1100 800 300 Output Total 50 100 50 Balance 1050 700 250 Intake, IV 1100 800 Intake, Oral 0 300 Number 1 1 3 Bowel Movements Output, 25 Emesis Output, Urine 50 75 50 Telemetry Monitoring:sinus rhythm to sinus tachycardia, rate 98-111 bpm. No events General: awake, pale, ill-appearing HEENT: sclera anicteric, dry oral mucosa CV: RRR, no murmurs Pulmonary: CTA bilaterally, normal air movement GI: abdomen soft, slightly distended in lower abdomen. Diffusely tender, left greater than right. Midline incision healing well. Dressing CDI. Xeroform over allergic reaction sites near incision. : urinary catheter in place with minimal dark urine. Extremities: RUE edema decreasing from yesterday. 3+ pitting edema in BLE Results Results: Laboratory Tests 01/05/17 0730: Anion Gap 10, Estimated GFR 26 L, BUN/Creatinine Ratio 14.0, Magnesium 2.5 H, Total Bilirubin 0.3, Direct Bilirubin 0.3, AST 17, ALT 43, Alkaline Phosphatase 152 H, Total Protein 4.1 L, Albumin 1.7 L, PT 20.5 H, INR 1.97 H, CBC w Diff MAN DIFF ORDERED, RBC 3.73 L, MCV 85.6, MCH 27.5, RDW 18.4 H, MPV 8.2, Gran % 94.8 H, Lymphocytes % 2.9 L, Monocytes % 2.3, Eosinophils % 0, Basophils % 0 L, Absolute Granulocytes 20.0 H, Segmented Neutrophils 52, Band Neutrophils 39 H, Absolute Lymphocytes 0.6 L, Lymphocytes 8 L, Monocytes 1 L , Absolute Monocytes 0.5, Absolute Eosinophils 0, Absolute Basophils 0, Platelet Estimate ADEQUATE, Polychromasia 1+, Hypochromic-Microcytic 1+, Anisocytosis 1+, PUBS MCHC 32.2 L 01/04/17 1100: Ur Random Creatinine 35.4, Ur Random Sodium 54, Ur Random Potassium 17.9, Fraction Sodium Excret 2.0 H 01/04/17 Renal US: IMPRESSION: 1. Normal ultrasound of right and left kidney. No renal hydronephrosis. 2. Bladder empty. Sanchez catheter in bladder. Assessment/Plan Assessment: Dale Carrion is a 61 yo M admitted on 12/24 for evaluation of abdominal mass and anemia. He is POD8 from exploratory laparotomy with right hemicolectomy and aborted attempt at tumor resection. Plan: Abdominal Pain: Improving, though still present. Associated with persistent nausea, vomiting, diarrhea. Poor po intake. CT scan with post-op changes and ? abscess near anastamosis * General Surgery and ID following, recommendations * Possible IR drainage of fluid collection if febrile, increasing leukocytosis * Stool specimen for C. 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 Biopsy not advisable given mucinous nature and high risk for seeding. Transfer to [facility] for higher level of care. * GI, General Surgery, Heme/Onc, Urology following * [facility] today for definitive management Anemia: 5u pRBCs transfused on this admission. H&H stabilizing. * Heme/Onc following * Daily CBC * Transfuse to keep Hb >7 Supratherapeutic INR: INR increased to 6.9 on 01/04, returning to normal on today' s labs. Warfarin being held. Will restart heparin gtt * Hold warfarin * Heparin gtt to start * Stop Vitamin K given PT/INR return to normal * Monitor for s/s of bleeding History of PE: warfarin being held, as described above. Heparin to restart * monitor for any s/s of PE (acute tachycardia, tachypnea, shortness of breath, anxiety), although not likely given PT/INR Difficulty with urinary catheter drainage: urine output continues to be low. Catheter irrigation does not improve output. Renal US yesterday showing no hydronephrosis, empty bladder. * Urology following * Continue to monitor strict I&O * Irrigation as necessary JUAN: sudden BUN/Cr elevation yesterday, BUN/Cr ratio of 13.3%. FeNa of 2%. Suggests intrinsic renal dysfunction, possibly ATN? * Nephrology consult pending * Hold Lasix * hydration with IVF, rate increased to 150cc/hr * UA and culture per ID RUE edema: probably related to IV infiltration. Doppler US was negative for DVT. * IV discontinued in RUE * Elevate RUE Tachycardia: on Cardizem 120mg BID. tachycardia improving. * Cardiology following * Continue Cardizem * No ectopy or SVT on telemetry, can d/c. Situational Anxiety/Depression: likely related to new diagnosis. Patient on Zoloft 50mg daily * Continue Zoloft as described * [facility] center counseling upon discharge Disposition: Transfer via ambulance to [facility] general medicine service. Code Status: Full Diet: NPO per surgery DVT prophylaxis: heparin gtt
--- NOTE | 2017-01-05 08:50 | PN- Urology ---
Subjective Subjective: No acute distress Objective Vital Signs and I&Os Vital Signs Date Time Temp Pulse Resp B/P B/P Pulse O2 O2 Flow FiO2 Mean Ox Delivery Rate 01/05 0031 98.7 112 20 104/70 95 Room Air 01/04 2232 113 100/70 01/04 1625 98.7 118 20 88/60 93 Room Air Intake & Output 01/05 1600 01/05 0800 05/ 0000 01/04 1600 01/04 0800 05 0000 Intake Total 800 300 420 240 100 Output Total 100 50 75 150 175 Balance 700 250 345 90 -75 Intake, IV 800 300 Intake, Oral 0 300 120 240 100 Number 1 3 4 6 1 Bowel Movements Output, 25 100 Emesis Output, Urine 75 50 75 50 175 Patient 182 lb Weight Abd: Dressing in place. Mild tenderness Genitalia: price in place. Draining pink-tinged urine Laboratory Tests 01/05 01/04 0730 1100 Chemistry Sodium Pending Potassium Pending Chloride Pending Carbon Dioxide Pending Anion Gap Pending BUN Pending Creatinine Pending BUN/Creatinine Ratio Pending Magnesium Pending Total Bilirubin Pending Direct Bilirubin Pending AST Pending ALT Pending Alkaline Phosphatase Pending Total Protein Pending Albumin Pending Coagulation PT Pending INR Pending Hematology CBC w Diff Pending WBC Pending RBC Pending Hgb Pending Hct Pending MCV Pending MCH Pending RDW Pending Plt Count Pending MPV Pending PUBS MCHC Pending Urines Ur Random Creatinine (mg/dL) 35.4 Ur Random Sodium (30 - 90 mmol/L) 54 Ur Random Potassium (mmol/L) 17.9 Fraction Sodium Excret (<1% %) 2.0 H Renal ultrasound: price in bladder which is empty. No hydronephrosis Assessment/Plan Assessment/Plan Imp: Large pelvic mass. Not separable from bladder Plan: In view of bump in creatinine would leave price in today In creat normalizes could conside price removal tomorrow
[2017-01-05 09:05] LABS: ABSOLUTE BASOPHIL COUNT 0 /CUMM (0.0-0.2); MEAN CORPUSCULAR HGB 27.5 PG (27.0-31.0); MEAN CORPUSCULAR HGB CONC 32.2 G/DL (33.0-37.0); MEAN CORPUSCULAR VOLUME 85.6 FL (80.0-94.0); MEAN PLATELET VOLUME 8.2 FL (7.4-10.4); PLATELET COUNT 363 /CUMM (130-400); RBC DISTRIBUTION WIDTH 18.4 % (11.5-14.5); WHITE BLOOD CELL COUNT 21.1 /CUMM (4.8-10.8)
--- NOTE | 2017-01-05 09:20 | PN- General Surgery ---
Surgical Brief Attending Note Brief Attending Note: nauseated with diarrhea. C. diff pending. new worsening renal failure. No evidence for obstructive uropathy. Await C.diff toxin. if negative, plan repeat CT with oral contrast pending discussion with IR for possible needle aspiration of pericolonic process. It appears to be hematoma but may represent early abscess.
[2017-01-05 09:42] LABS: HEMATOCRIT 31.9 % (42-52)
[2017-01-05 09:47] VITALS: BP 112/72
[2017-01-05] MEDS ORDERED: OMEPRAZOLE20 M2 PO (12:53)
[2017-01-05] MEDS ORDERED: DILTIAZEM 12HR60 MG PO (12:53)
[2017-01-05] MEDS ORDERED: HEPARIN-1/25000 UNIT IV (13:00)
[2017-01-05] MEDS ORDERED: [UNRECOGNIZED DRUG - CODE] IV (13:00)
--- NOTE | 2017-01-05 13:37 | PN- Infect Dx ---
Subjective Subjective: Afebrile. He complains of abdominal pain and incontinence of stool, with 13 bowel movements reported yesterday. He continues to report dysuria, with decreased urine output noted. Objective Last 24 Hrs of Vital Signs/I&O Vital Signs Date Time Temp Pulse Resp B/P B/P Pulse O2 O2 Flow FiO2 Mean Ox Delivery Rate 01/05 0947 97 112/72 01/05 0750 97.6 96 16 98/62 97 Room Air 01/05 0031 98.7 112 20 104/70 95 Room Air 01/04 2232 113 100/70 01/04 1625 98.7 118 20 88/60 93 Room Air Intake & Output 01/05 1600 01/05 0800 01/05 0000 Intake Total 800 300 Output Total 100 50 Balance 700 250 Intake, IV 800 Intake, Oral 0 300 Number 1 3 Bowel Movements Output, 25 Emesis Output, Urine 75 50 Physical Exam Other Physical Findings: He appears in no acute distress Lungs are clear anteriorly Heart regular rhythm with no murmur Abdomen is distended, tender on minimal palpation, with positive bowel sounds Sanchez catheter remains in place with minimal urine output Results Last 24 Hours of Lab Results: Laboratory Tests 01/05 01/05 0953 0730 Chemistry Sodium (137 - 145 mmol/L) 136 L Potassium (3.5 - 5.1 mmol/L) 4.6 Chloride (98 - 107 mmol/L) 104 Carbon Dioxide (22 - 30 mmol/L) 22 Anion Gap (5 - 16) 10 BUN (9 - 20 mg/dL) 35 H Creatinine (0.7 - 1.2 mg/dL) 2.5 H Estimated GFR (>60 ml/min) 26 L BUN/Creatinine Ratio (7 - 25 %) 14.0 Magnesium (1.6 - 2.3 mg/dL) 2.5 H Total Bilirubin (0.2 - 1.3 mg/dL) 0.3 Direct Bilirubin (< 0.4 mg/dL) 0.3 AST (17 - 59 U/L) 17 ALT (21 - 72 U/L) 43 Alkaline Phosphatase (< 127 U/L) 152 H Total Protein (6.3 - 8.2 g/dL) 4.1 L Albumin (3.5 - 5.0 g/dL) 1.7 L Coagulation PT (9.4 - 12.5 SEC) 20.5 H INR (0.90 - 1.17) 1.97 H Hematology CBC w Diff MAN DIFF ORDERED WBC (4.8 - 10.8 /CUMM) 21.1 H RBC (4.70 - 6.10 /CUMM) 3.73 L Hgb (14.0 - 18.0 G/DL) 10.3 L Hct (42 - 52 %) 31.9 L MCV (80.0 - 94.0 FL) 85.6 MCH (27.0 - 31.0 PG) 27.5 RDW (11.5 - 14.5 %) 18.4 H Plt Count (130 - 400 /CUMM) 363 MPV (7.4 - 10.4 FL) 8.2 Gran % (42.2 - 75.2 %) 94.8 H Lymphocytes % (20.5 - 51.1 %) 2.9 L Monocytes % (1.7 - 9.3 %) 2.3 Eosinophils % (0 - 5 %) 0 Basophils % (0.0 - 2.0 %) 0 L Absolute Granulocytes (1.4 - 6.5 /CUMM) 20.0 H Segmented Neutrophils (42.2 - 75.2 %) 52 Band Neutrophils (0.0 - 5.0 %) 39 H Absolute Lymphocytes (1.2 - 3.4 /CUMM) 0.6 L Lymphocytes (20.5 - 51.1 %) 8 L Monocytes (1.7 - 9.3 %) 1 L Absolute Monocytes (0.10 - 0.60 /CUMM) 0.5 Absolute Eosinophils (0.0 - 0.7 /CUMM) 0 Absolute Basophils (0.0 - 0.2 /CUMM) 0 Platelet Estimate (ADEQUATE) ADEQUATE Polychromasia 1+ Hypochromic-Microcytic 1+ Anisocytosis 1+ PUBS MCHC (33.0 - 37.0 G/DL) 32.2 L Urines Ur Random Creatinine Cancelled Ur Random Sodium Cancelled Ur Random Potassium Cancelled Fraction Sodium Excret Cancelled Last 24 Hours of Yuri Results: Stool C. difficile January 04 negative Blood cultures January 02 negative Recent Imaging Studies: Renal ultrasound January 04 no hydronephrosis; Sanchez catheter is in the bladder Assessment/Plan Impression: Condition is poor with temperatures remaining normal but white blood cell count increased today, possibly secondary to the new pelvic collection noted on the recent CT scan, possibly representing a postop abscess, versus a urinary tract infection, with problems with the indwelling Sanchez catheter, versus C. difficile , though his toxin test is negative. He is now in acute renal failure, possibly multifactorial, which further complicates his condition. He is apparently being transferred to [facility] for further evaluation and management and further workup for his leukocytosis can be deferred to [place]. Suggestion: 1. Await transfer to [facility] 2. Further evaluation, including urinalysis and urine culture as well as CT- guided aspiration of the new pelvic collection, can be deferred to [place] as he is to be transferred today 3. Continue to follow off antibiotics pending above
--- NOTE | 2017-01-05 14:04 | PN- Oncology ---
Subjective Subjective: He continues to have abdominal pain. He had fever on Wednesday. He continues to have abdominal pain. He has been afebrile now. Review of Systems: Constitutional: Reports: weakness. Denies: chills, fever. Cardiovascular: Reports: edema, peripheral edema. Denies: chest pain. Gastrointestinal: Reports: abdominal pain, diarrhea, nausea. Genitourinary: Reports: dysuria. Immunologic/Allergic: Denies: lymphadenopathy. All Other Systems: Reviewed and Negative Objective Vital Signs and I&Os Vital Signs Date Time Temp Pulse Resp B/P B/P Pulse O2 O2 Flow FiO2 Mean Ox Delivery Rate 01/05 947 97 112/72 01/05 0750 97.6 96 16 98/62 97 Room Air 01/05 0031 98.7 112 20 104/70 95 Room Air 01/04 2232 113 100/70 01/04 1625 98.7 118 20 88/60 93 Room Air Intake & Output 01/05 1600 01/05 0800 / 0000 01/04 1600 01/04 0800 01/04 0000 Intake Total 800 300 420 240 100 Output Total 100 50 75 150 175 Balance 700 250 345 90 -75 Intake, IV 800 300 Intake, Oral 0 300 120 240 100 Number 1 3 4 6 1 Bowel Movements Output, 25 100 Emesis Output, Urine 75 50 75 50 175 Patient 82.554 kg Weight Physical Exam: General Appearance: alert, awake, anxious, thin Respiratory: normal breath sounds, no respiratory distress, quiet respiration Cardiovascular: tachycardia Abdomen: distention, guarding, tenderness, mass in lower abdomen. Extremities: 4+BLE edema Neurologic/Psychiatric: alert, oriented x 3 Current Medications: Current Medications Sig/Ghulam Start time Last Medication Dose Route Stop Time Status Admin Benzocaine/Menthol 1 ERICK Q2P PRN 12/29 1330 AC PO Dextrose/Sodium 1,000 ML Q6H 01/05 1515 AC / Chloride IV 1126 Dextrose/Sodium 1,000 ML Q20H 01/05 0330 CAN Chloride IV 01/05 2329 Diltiazem HCl 120 MG BID 01/04 2200 AC 01/05 PO 0947 Heparin Sodium 25,000 UNIT Q24H 01/05 1300 AC (Porcine) IV Sodium Chloride 500 ML Magnesium Oxide 400 MG BID 01/02 1000 DC 01/04 PO 223 Omeprazole 40 MG DAILY AC 01/03 1022 AC PO Ondansetron HCl 4 MG .STK-MED ONE 01/04 1619 DC IM 01/04 1620 Ondansetron HCl 4 MG Q6P PRN 01/03 1745 AC 01/05 IV 0327 Patient Medication 1 UNIT 01/04 DC 01/04 Teaching ED 01/04 2201 2231 Phenytoin 200 MG BID 12/30 220 AC 01/05 PO 0947 Phytonadione 5 MG DAILY 01/04 1000 DC 01/04 PO 1033 Potassium Chloride 20 MEQ Q6H 01/05 0915 DC 01/05 Dextrose/Sodium 1,000 ML IV 0948 Chloride Potassium Chloride 20 MEQ Q13H 01/04 0800 DC 01/04 Dextrose/Sodium 1,000 ML IV 2231 Chloride Sertraline HCl 50 MG DAILY 01/03 1000 AC 01/05 PO 0948 Tramadol HCl 50 MG Q4 PRN 01/02 1545 AC 01/04 PO 1034 Results Last 24 Hours of Lab Results: Laboratory Tests 01/05 01/05 0953 0730 Chemistry Sodium (137 - 145 mmol/L) 136 L Potassium (3.5 - 5.1 mmol/L) 4.6 Chloride (98 - 107 mmol/L) 104 Carbon Dioxide (22 - 30 mmol/L) 22 Anion Gap (5 - 16) 10 BUN (9 - 20 mg/dL) 35 H Creatinine (0.7 - 1.2 mg/dL) 2.5 H Estimated GFR (>60 ml/min) 26 L BUN/Creatinine Ratio (7 - 25 %) 14.0 Magnesium (1.6 - 2.3 mg/dL) 2.5 H Total Bilirubin (0.2 - 1.3 mg/dL) 0.3 Direct Bilirubin (< 0.4 mg/dL) 0.3 AST (17 - 59 U/L) 17 ALT (21 - 72 U/L) 43 Alkaline Phosphatase (< 127 U/L) 152 H Total Protein (6.3 - 8.2 g/dL) 4.1 L Albumin (3.5 - 5.0 g/dL) 1.7 L Coagulation PT (9.4 - 12.5 SEC) 20.5 H INR (0.90 - 1.17) 1.97 H Hematology CBC w Diff MAN DIFF ORDERED WBC (4.8 - 10.8 /CUMM) 21.1 H RBC (4.70 - 6.10 /CUMM) 3.73 L Hgb (14.0 - 18.0 G/DL) 10.3 L Hct (42 - 52 %) 31.9 L MCV (80.0 - 94.0 FL) 85.6 MCH (27.0 - 31.0 PG) 27.5 RDW (11.5 - 14.5 %) 18.4 H Plt Count (130 - 400 /CUMM) 363 MPV (7.4 - 10.4 FL) 8.2 Gran % (42.2 - 75.2 %) 94.8 H Lymphocytes % (20.5 - 51.1 %) 2.9 L Monocytes % (1.7 - 9.3 %) 2.3 Eosinophils % (0 - 5 %) 0 Basophils % (0.0 - 2.0 %) 0 L Absolute Granulocytes (1.4 - 6.5 /CUMM) 20.0 H Segmented Neutrophils (42.2 - 75.2 %) 52 Band Neutrophils (0.0 - 5.0 %) 39 H Absolute Lymphocytes (1.2 - 3.4 /CUMM) 0.6 L Lymphocytes (20.5 - 51.1 %) 8 L Monocytes (1.7 - 9.3 %) 1 L Absolute Monocytes (0.10 - 0.60 /CUMM) 0.5 Absolute Eosinophils (0.0 - 0.7 /CUMM) 0 Absolute Basophils (0.0 - 0.2 /CUMM) 0 Platelet Estimate (ADEQUATE) ADEQUATE Polychromasia 1+ Hypochromic-Microcytic 1+ Anisocytosis 1+ PUBS MCHC (33.0 - 37.0 G/DL) 32.2 L Urines Ur Random Creatinine Cancelled Ur Random Sodium Cancelled Ur Random Potassium Cancelled Fraction Sodium Excret Cancelled Recent Imaging Studies: CT abd/pelvis 01/02/2017: Similar appearance of the large pelvic mass. Mass effect upon the bladder. No bowel obstruction. Postsurgical changes status post partial resection of the right colon. At the operative site, there is a nonopacified area of higher than simple fluid attenuation which could represent a collection postoperatively. There is a small volume of free fluid with free intraperitoneal air remaining. Persistent moderate hiatal hernia. Assessment/Plan Assessment/Recommendations: Mr. Carrion is a 61-year-old male with history of seizure, PE, abdominal mass in 2014 who presents with symptomatic anemia. Imaging demonstrated a pelvic mass with possible communication with bowel but no definite with bladder. He was taken to OR on 12/28 for exploratory laparoscopy by Dr. Proctor. Per Dr. 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 Dr. Proctor did right hemicolectomy. The mass was left intact. Pathology demonstrated tubular adenoma and 17 negative lymph node. IR felt they are not able to do a needle biopsy given the mucinous nature/mucoceles appearance. Dr. Emanuel felt that tumor will not be able to be biopsied endoscopically. It is unclear if a repeat cystoscopy may be done to evaluate mass and biopsy. He currently has no tissue diagnosis. He now has worsening renal function and possible fluid collection at operative site. IR and surgery are in the process of evaluation for drainage. His leukocytosis is increasing. C. difficile testing is negative. The fluid collection may be related to hematoma or abscess. This may require drainage. It is unclear on his renal function. Nephrology has been consulted. Renal ultrasound was unremarkable. 1. Will need tissue diagnosis - biopsy versus definitive surgery 2. Follow up nephrology evaluation 3. Surgery to discuss with IR on best approach to address abdominal mass 4. Follow up as outpatient Please call [phone] with any questions. Problem List: 1. JUAN (acute kidney injury) 2. Anemia of chronic disease 3. Abdominal mass
== END 2017-01-05 15:20 | disposition short-term general hospital (02) | DRG 827 ==
LOC: ERH 16:56 → 1NO 22:14 → ERHI 22:14 → ENRESERV 22:34 → CANRESERV 22:34 → ENRESERV 23:12 → 1NO 12-25 00:16 → ENPENDDIS 01-05 14:33 → 1NO 01-05 15:20
PROVIDERS: Dermatology; Internal Medicine; Internal Medicine Cardiovascular Disease; Physician Assistant Medical; Student in an Organized Health Care Education/Training Program; ADMIT Student in an Organized Health Care Education/Training Program
PROC: 30233N1 Transfusion of Nonautologous Red Blood Cells into Peripheral Vein, Percutaneous Approach (ICD-10-PCS; 2016-12-25)
PROC: 0DTF0ZZ Resection of Right Large Intestine, Open Approach (ICD-10-PCS; principal; 2016-12-28)
PROC: 0TJB8ZZ Inspection of Bladder, Via Natural or Artificial Opening Endoscopic (ICD-10-PCS; 2016-12-28)
DX: D48.7 Neoplasm of uncertain behavior of other specified sites (principal); E46 Unspecified protein-calorie malnutrition; K92.2 Gastrointestinal hemorrhage, unspecified; D62 Acute posthemorrhagic anemia; I47.1 Supraventricular tachycardia; N39.0 Urinary tract infection, site not specified; G40.909 Epilepsy, unspecified, not intractable, without status epilepticus; Z86.711 Personal history of pulmonary embolism; Z79.01 Long term (current) use of anticoagulants; N40.0 Benign prostatic hyperplasia without lower urinary tract symptoms; K21.9 Gastro-esophageal reflux disease without esophagitis; F17.200 Nicotine dependence, unspecified, uncomplicated; K44.9 Diaphragmatic hernia without obstruction or gangrene; Z68.27 Body mass index [BMI] 27.0-27.9, adult
CPT/HCPCS: 1NP; 84133; 84300; ERO; 36415; 74020; 74176; 74177; 76775; 81001; 82436; 82570; 84153; 86920; 87040; 87086; 88305; 88309; 93005; 93010; 93306; 93970; 95816; 96374; 97116-GO; 97161-GP; 97530-GO; C9399; J0131; J0153; J0696; J1165; J1170; J1644; J1885; J1940; J2405; J3250; J7042; P9016; S5012

== ENCOUNTER 2017-02-09 21:13 | Inpatient (IN) | payer OTHER, MEDICARE ==
[~2017-02-09] VITALS: Ht 182.9 cm; Wt 91.3 kg
[~2017-02-09 21:13] MED LIST changes: +DAILY MULTIPLE1 EACH PO; +DILTIAZEM 12HR60 MG PO; +HEPARIN-1/25000 UNIT IV; +OMEPRAZOLE20 M2 PO; +PHENYTOIN SODI100 MG PO; +SERTRALINE HCL25 MG PO; +WARFARIN SODIU7.5 M1 PO; +[UNRECOGNIZED DRUG - CODE] IV
--- NOTE | 2017-02-09 21:17 | ED CARDIAC/CP/PALPITATIONS ---
See Addendum History of Present Illness General Chief Complaint: General Adult Stated Complaint: "PER EMS HEART" Source: old records, EMS, [facility]10 Exam Limitations: dementia Vital Signs & Intake/Output Vital Signs & Intake/Output Vital Signs Date Time Temp Pulse Resp B/P B/P Pulse O2 O2 Flow FiO2 Mean Ox Delivery Rate 02/10 0036 99.8 125 20 117/65 98 Nasal 2.0L Cannula 02/10 0001 136 02/09 2306 99.6 131 20 118/72 98 Nasal 2.0L Cannula 02/09 2253 133 20 110/67 98 Nasal 2.0L Cannula 02/09 2121 99.6 127 20 105/71 98 Nasal 2.0L Cannula ED Intake and Output 02/10 0000 02/09 1200 Intake Total Output Total Balance Patient 198 lb Weight Weight Estimated Measurement Method Allergies Coded Allergies: NO KNOWN ALLERGIES (01/11/14) Reconcile Medications Acetaminophen (8 Hour) 650 MG TABLET.ER 1 TAB PO Q4H PRN PAIN/TEMP/> 101 ( Reported) Acetaminophen (Acephen) 650 MG SUPP.RECT 1 SUPP HI Q4H PRN PAIN/TEMP>101 ( Reported) Albuterol Sulfate 2.5 MG/3 ML (0.083 %) VIAL.NEB 1 Vial INH/BRIT Q6H PRN SOB ( Reported) Bisacodyl 10 MG SUPP.RECT 1 SUP RC DAILY PRN CONSTIPATION (Reported) Diltiazem HCl (Diltiazem 12HR ER) 60 MG CAP.ER.12H 120 MG PO BID SVT Enoxaparin Sodium (Lovenox) 100 MG/ML SYRINGE 100 MG SC Q12H BLOOD THINNER ( Reported) Folic Acid 1 MG TABLET 1 TAB PO DAILY SUPPLEMENT (Reported) Levetiracetam (Keppra) 1,000 MG TABLET 1 TAB PO Q12H UNKNOWN (Reported) Loperamide HCl (Imodium A-D) 2 MG TABLET 1 TAB PO Q6H PRN LOOSE STOOL ( Reported) Magnesium Hydroxide (Milk Of Magnesia) 400 MG/5 ML ORAL.SUSP 30 ML PO DAILY PRN CONSTIPATION (Reported) Multivitamin (Daily Multiple Vitamin) 1 EACH TABLET 1 TAB PO DAILY SUPPLEMENT (Reported) Na Phos,M-B/Na Phos,Di-Ba (Fleet Enema) 19 GRAM-7 GRAM/118 ML ENEMA 1 E RC DAILY PRN CONSTIPATION (Reported) Omeprazole 20 MG CAPSULE.DR 40 MG PO DAILY AC stomach Ondansetron HCl 4 MG TABLET 1 TAB PO Q6P PRN N/V (Reported) Oxybutynin Chloride 5 MG TABLET 1 TAB PO DAILY (Reported) Phenytoin Sodium Extended 100 MG CAPSULE 2 CAP PO BID SEIZURES (Reported) Polyethylene Glycol 3350 (Miralax) 17 GRAM POWD.PACK 1 PAC PO DAILY GI ( Reported) dissolve in water Sertraline HCl 25 MG TABLET 25 MG PO DAILY mental health [TPN] TPN (Reported) Trazodone HCl 50 MG TABLET 1 TAB PO QHS INSOMNIA (Reported) Triage Nurses Notes Reviewed? yes HPI: Patient sent in for evaluation of tachycardia. Patient has cognitive impairment and is unable to write any history. Patient has no complaints. Patient does have history of multiple focal atrial tachycardia. Patient was found with a heart rate in the 130s. Patient has been taking his diltiazem as prescribed. Past History Travel History Traveled to [place] past 21 day No Medical History Any Pertinent Medical History? 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 MOTHER, , Age 50-60; Cause: Cancer of unknown origin. BROTHER ([employer]). Relation not specified for: *No pertinent family history Hx Contributory? No Review of Systems Review of Systems Constitutional: Reports: see HPI. Physical Exam Physical Exam General Appearance: well developed/nourished, alert, awake, mild distress Head: atraumatic Eyes: Bilateral: PERRL, EOMI. Ears, Nose, Throat: normal pharynx, normal ENT inspection, hearing grossly normal Neck: normal inspection, supple, full range of motion Respiratory: normal breath sounds, chest non-tender, no respiratory distress, lungs clear Cardiovascular: normal peripheral pulses, tachycardia, irregularly irregular Gastrointestinal: normal bowel sounds, soft, non-tender, no organomegaly Back: normal inspection, normal range of motion Extremities: normal inspection, normal capillary refill, normal range of motion Neurologic/Psych: no motor/sensory deficits, awake Skin: intact, normal color, warm/dry Lymphatic: no anterior cervical mandy Core Measures ACS in differential dx? No Severe Sepsis Present: No Septic Shock Present: No Progress Differential Diagnosis: AMI, atrial fibrillation, hyperthyroid, myocarditis, pericarditis, pneumonia, pneumothorax, pulmonary embolism Plan of Care: Orders Procedure Date/time Status Telemetry/Space Control Agent 02/10 2116 Active URINALYSIS 02/10 2116 Complete THYROID STIMULATING HORMONE 02/10 2116 Complete TROPONIN LEVEL 02/10 2116 Complete DILANTIN 02/10 2116 Complete COMPREHENSIVE METABOLIC PANEL 02/10 2116 Complete CBC WITHOUT DIFFERENTIAL 02/10 2116 Complete EKG 02/10 2116 Active Current Medications Sig/Ghulam Start time Last Medication Dose Stop Time Status Admin Diltiazem HCl 125 MG Q12H 02/10 0045 UNVr (Cardizem DRIP) Sodium Chloride 100 ML (Normal Saline 0.9%) Laboratory Tests 02/09/17 2340: Urinalysis LIGHT H, Urine Color YEL, Urine Clarity CLDY H, Urine pH 6.0, Ur Specific Mcgrath 1.025, Urine Protein 100 H, Urine Ketones NEG, Urine Nitrite NEG, Urine Bilirubin NEG, Urine Urobilinogen 1.0, Ur Leukocyte Esterase LARGE H , Ur Microscopic SEDIMENT EXAMINED, Urine RBC 10-15 H, Urine WBC > 75 H, Ur Epithelial Cells FEW, Urine Bacteria PACKD H, Urine Mucus FEW, Urine Hemoglobin LARGE H, Urine Glucose NEG 02/09/17 2153: Anion Gap 7, Estimated GFR > 60, BUN/Creatinine Ratio 40.0 H, Glucose 104 H, Calcium 8.0 L, Total Bilirubin 0.4, AST 74 H, ALT 82 H, Alkaline Phosphatase 352 H, Troponin I 0.07, Total Protein 6.0 L, Albumin 2.1 L, Globulin 3.9, Albumin/Globulin Ratio 0.5 L, TSH 4.400 H, CBC w Diff NO MAN DIFF REQ, RBC 3.14 L, MCV 84.2, MCH 27.5, RDW 17.9 H, MPV 7.9, Gran % 80.3 H, Lymphocytes % 9.6 L, Monocytes % 9.2, Eosinophils % 0.5, Basophils % 0.4, Absolute Granulocytes 10.1 H, Absolute Lymphocytes 1.2, Absolute Monocytes 1.2 H, Absolute Eosinophils 0.1, Absolute Basophils 0.1, PUBS MCHC 32.6 L, Phenytoin 3.0 L Initial ED EKG: MAT, NSSTT CHANGES Rhythm Strip: MAT Comments: There is been no change after 10 mg of IV Cardizem. Discussed with Dr. Aragon. Patient received 20 mg of IV Cardizem. If he has a good response he may return to the snf on an increased dose of diltiazem. If he does not have a response that he will need a Cardizem drip and admission. Departure Departure Disposition: STILL A PATIENT Condition: Guarded Clinical Impression Primary Impression: Multifocal atrial tachycardia Referrals: GARRETT MACIAS MD (PCP/Family) Departure Forms: Customer Survey General Discharge Information Critical Care Note Critical Care Note Critical Care Time: mins: (45 MIN)
--- NOTE | 2017-02-09 21:56 | NUR ---
SANGEETA FROM [facility] WHERE STAFF STATES PATIENT HAS BEEN TACHY WITH HR 110-133. NO OTHER C/O.
--- NOTE | 2017-02-09 21:56 | NUR ---
LABS DRAWN. BLUE, GOLD, LAV, & LANDAVERDE TOPS SENT
[2017-02-09] MEDS ORDERED: LOVENOX100 MG/1 M SC (22:01)
[2017-02-09] MEDS ORDERED: KEPPRA1000 M1 PO (22:01)
[2017-02-09 22:02] LABS: ABSOLUTE BASOPHIL COUNT 0.1 /CUMM (0.0-0.2); ABSOLUTE EOSINOPHIL COUNT 0.1 /CUMM (0.0-0.7); ABSOLUTE GRANULOCYTE CT 10.1 /CUMM (1.4-6.5); ABSOLUTE LYMPH COUNT 1.2 /CUMM (1.2-3.4); ABSOLUTE MONOCYTE COUNT 1.2 /CUMM (0.10-0.60); BASOPHIL % 0.4 % (0.0-2.0); EOSINOPHIL % 0.5 % (0-5); GRANULOCYTE % 80.3 % (42.2-75.2); HEMATOCRIT 26.4 % (42-52); MEAN CORPUSCULAR HGB 27.5 PG (27.0-31.0); MEAN CORPUSCULAR HGB CONC 32.6 G/DL (33.0-37.0); MEAN CORPUSCULAR VOLUME 84.2 FL (80.0-94.0); MEAN PLATELET VOLUME 7.9 FL (7.4-10.4); PLATELET COUNT 326 /CUMM (130-400); RBC DISTRIBUTION WIDTH 17.9 % (11.5-14.5); RED BLOOD CELL CT 3.14 /CUMM (4.70-6.10); WHITE BLOOD CELL COUNT 12.6 /CUMM (4.8-10.8)
[2017-02-09] MEDS ORDERED: TRAZODONE HCL50 M1 PO (22:02)
[2017-02-09] MEDS ORDERED: MIRALAX17 G1 PO (22:02)
[2017-02-09] MEDS ORDERED: OXYBUTYNIN CHLOR5 M2 PO (22:04)
[2017-02-09] MEDS ORDERED: FOLIC ACID1 M1 PO (22:05)
[2017-02-09] MEDS ORDERED: TPN (22:17)
[2017-02-09] MEDS ORDERED: 8 HOUR650 MG PO (22:20)
[2017-02-09] MEDS ORDERED: ACEPHEN650 M1 PR (22:22)
[2017-02-09] MEDS ORDERED: MILK OF MA400 MG/52 PO (22:23)
[2017-02-09] MEDS ORDERED: FLEET ENEMA133 ML RC (22:25)
[2017-02-09] MEDS ORDERED: BISACODYL10 M1 RC (22:25)
[2017-02-09] MEDS ORDERED: ALBUTEROL2.5 MG/3 M INH/SOL (22:26)
[2017-02-09] MEDS ORDERED: IMODIUM A-D2 M1 PO (22:27)
[2017-02-09] MEDS ORDERED: ONDANSETRON HCL4 MG PO (22:28)
--- NOTE | 2017-02-09 23:40 | NUR ---
CM CONTINUES ST 130
--- NOTE | 2017-02-10 00:01 | NUR ---
HR CONTINUES 136 CARDIZEM 20MG IV GIVEN
--- NOTE | 2017-02-10 00:33 | NUR ---
CM CONTINUES 120'S DR GONZALES AWARE.
--- NOTE | 2017-02-10 00:57 | NUR ---
HR CONTINUES 130-140. CARDIZEM DRIP STARTED.AT 5MG/HR VIA PUMP
--- NOTE | 2017-02-10 01:00 | History & Physical ---
LILI JOHANSENFIORDALIZAAllan 02/10/17 0100: General Information and HPI MD Statement: I have seen and personally examined JUANY GONZALEZ and documented this H&P. 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 He was discharged from [place] to [place] on TPN feeds on 02/05/17 . He was sent from the [facility] for evaluation of increased heart rate. On interview he denied any chest pain, palpitations, dizziness, shortness of breath, fever, chills, abodminal distention or abdominal pain. Spoke to Nursing supervisor phosphatic fertilizer at [facility]. His HR has been in the 130s there and they had note "blood in stool" was not able to tell me bright red blood stool VS maleana Allergies/Medications Allergies: Coded Allergies: NO KNOWN ALLERGIES (01/11/14) Home Med list Acetaminophen (8 Hour) 650 MG TABLET.ER 1 TAB PO Q4H PRN PAIN/TEMP/> 101 ( Reported) Acetaminophen (Acephen) 650 MG SUPP.RECT 1 SUPP [place] Q4H PRN PAIN/TEMP>101 ( Reported) Albuterol Sulfate 2.5 MG/3 ML (0.083 %) VIAL.NEB 1 Vial INH/BRIT Q6H PRN SOB ( Reported) Bisacodyl 10 MG SUPP.RECT 1 SUP RC DAILY PRN CONSTIPATION (Reported) Diltiazem HCl (Diltiazem 12HR ER) 60 MG CAP.ER.12H 120 MG PO BID SVT Enoxaparin Sodium (Lovenox) 100 MG/ML SYRINGE 100 MG SC Q12H BLOOD THINNER ( Reported) Folic Acid 1 MG TABLET 1 TAB PO DAILY SUPPLEMENT (Reported) Levetiracetam (Keppra) 1,000 MG TABLET 1 TAB PO Q12H UNKNOWN (Reported) Loperamide HCl (Imodium A-D) 2 MG TABLET 1 TAB PO Q6H PRN LOOSE STOOL ( Reported) Magnesium Hydroxide (Milk Of Magnesia) 400 MG/5 ML ORAL.SUSP 30 ML PO DAILY PRN CONSTIPATION (Reported) Multivitamin (Daily Multiple Vitamin) 1 EACH TABLET 1 TAB PO DAILY SUPPLEMENT (Reported) Na Phos,M-B/Na Phos,Di-Ba (Fleet Enema) 19 GRAM-7 GRAM/118 ML ENEMA 1 E RC DAILY PRN CONSTIPATION (Reported) Omeprazole 20 MG CAPSULE.DR 40 MG PO DAILY AC stomach Ondansetron HCl 4 MG TABLET 1 TAB PO Q6P PRN N/V (Reported) Oxybutynin Chloride 5 MG TABLET 1 TAB PO DAILY (Reported) Phenytoin Sodium Extended 100 MG CAPSULE 2 CAP PO BID SEIZURES (Reported) Polyethylene Glycol 3350 (Miralax) 17 GRAM POWD.PACK 1 PAC PO DAILY GI ( Reported) dissolve in water Sertraline HCl 25 MG TABLET 25 MG PO DAILY mental health [TPN] TPN (Reported) Trazodone HCl 50 MG TABLET 1 TAB PO QHS INSOMNIA (Reported) Compliance With Home Meds: GOOD Past History Travel History Traveled to [place] past 21 day No Medical History Neurological: seizure, childhood encephalitis EENT: NONE Cardiovascular: syncope (possible unwitnessed) Respiratory: pulmonary embolism (06/2014) Gastrointestinal: GERD (mild), hiatal hernia Hepatic: NONE Renal: benign prost hyperplasia Musculoskeletal: osteopenia; TL compression fractures Psychiatric: NONE Endocrine: osteopenia Blood Disorders: anemia, PE (06/2014) Cancer(s): NONE RING STRIKER/Reproductive: NONE History of MRSA: No History of VRE: No History of CDIFF: No Surgical History Surgical History: wrist surgery Past Family/Social History Family History Relations & Conditions if any FATHER, , Age 40-50; Cause: Cancer of unknown origin. MOTHER, , Age 50-60; Cause: Cancer of unknown origin. BROTHER ([employer]). Relation not specified for: *No pertinent family history Psychosocial History Where do you live? Extended Care Facility Services at Home: None Primary Language: Korean Living Will? yes Power of Central Supply Nurse/HCP? unknown Name of POA/HCP: brother Functional Ability ADLs Independent: dressing, eating, toileting, bathing. Ambulation: independent IADLs Independent: shopping, housework, finances, food prep, telephone, transportation , medication admin. Review of Systems Review of Systems Constitutional: Denies: chills, diaphoresis, fever, malaise, weakness, unexplained weight loss. Cardiovascular: Denies: chest pain, edema, orthopena, palpitations, peripheral edema, syncope. Respiratory: Denies: cough, hemoptysis, orthopnea, short of breath, sputum production, stridor, wheezing. GI: Denies: abdominal pain, bloating, constipation, diarrhea, distention, bowel incontinence, melena, nausea, bloody stool, changes in stool, vomiting, steatorrhea. Exam & Diagnostic Data Last 24 Hrs of Vital Signs/I&O Vital Signs Date Time Temp Pulse Resp B/P B/P Pulse O2 O2 Flow FiO2 Mean Ox Delivery Rate 02/10 0658 116 20 108/70 02/10 0239 98.6 125 20 118/69 95 Room Air 02/10 0036 99.8 125 20 117/65 98 Nasal 2.0L Cannula 02/10 0001 136 02/09 2306 99.6 131 20 118/72 98 Nasal 2.0L Cannula 02/09 2253 133 20 110/67 98 Nasal 2.0L Cannula 02/09 2121 99.6 127 20 105/71 98 Nasal 2.0L Cannula Intake & Output 02/10 1600 02/10 0800 02/10 0000 Intake Total Output Total 100 Balance -100 Output, Urine 100 Patient 198 lb Weight Weight Estimated Measurement Method Physical Exam General Appearance Alert, Oriented X3, No Acute Distress Skin No Significant Lesion HEENT Atraumatic, PERRLA, EOMI, dry mucous membrane Neck No JVD Lymphatic Cervical nl Cardiovascular Regular Rate, Normal S1, Normal S2 Lungs Clear to Auscultation, Normal Air Movement Abdomen midline scar, no signs of infection Extremities picc line in right upper arm, no signs of infections Rectal No Fissures, No Hemorrhoids, Guaic positive Diagnostic Data EKG Results Sinus Tachycardia Other Results SERVICE DATE: 02/10/17 EXAM TYPE: RAD - XRY-PORTABLE ABDOMEN FINDINGS: No definite free air is seen, though assessment is limited due to positioning. There is a moderate to large amount of stool within the colon. No specific findings of bowel obstruction. No suspicious calcifications are seen. There is haziness at the bilateral lung bases which may reflect a combination of pleural effusion and airspace opacification. No acute osseous findings are seen. IMPRESSION: No definite acute findings. Moderate to large volume of stool. SERVICE DATE: 02/10/17 EXAM TYPE: CAT - CT ABD & PELVIS W IV CONTRAST FINDINGS: LUNG BASES: There are partially visualized small to moderate bilateral pleural effusions with partial atelectasis of the lower lobes. LIVER, GALLBLADDER, AND BILIARY TREE: The liver is normal in size, shape, and attenuation. There are a few small ill-defined hypoattenuating lesions in the liver, not fully characterized on this exam. No biliary ductal dilatation is present. The gallbladder is grossly unremarkable. PANCREAS: Unremarkable. SPLEEN: Unremarkable. ADRENAL GLANDS: Bilateral adrenal nodules are noted, of nonspecific attenuation. KIDNEYS AND URETERS: Bilateral nephrograms are symmetric. There is mild left hydronephrosis. No obstructing calculi are seen. BLADDER: Decompressed with a Price catheter. GASTROINTESTINAL TRACT: There is a moderate to large hiatal hernia. No definite evidence of bowel obstruction. A suture line is noted in the right lower quadrant. There is moderate stool in the colon. Presacral stranding is noted. No free air is seen. There is a peripherally enhancing low-density structure in the left abdomen on image 53/103 measuring 3.8 cm in diameter; it is uncertain if this reflects a mass/fluid collection or a focally dilated segment of small bowel. ABDOMINAL WALL: Small focus of gas is noted in the subcutaneous tissue of the mid to lower anterior abdominal wall. LYMPH NODES: No definite lymphadenopathy. VASCULAR: Unremarkable. PELVIC VISCERA: There is a redemonstrated large heterogeneous mass in the lower abdomen/pelvis. This measures approximately 16.6 x 14.7 cm in axial plane and 19.1 cm in craniocaudal dimension (previously 15.3 x 15.1 x 15.2 cm when measured in similar fashion on 01/02/2017). Regions of gas are again seen within the mass, overall increased compared to prior. OSSEOUS STRUCTURES: Healed right rib fractures are noted. There is partial loss of height of L4, similar to prior. IMPRESSION: 1. Redemonstrated large mass in the lower abdomen/pelvis which appears mildly increased in size from 01/02/2017. Foci of gas are again seen within the mass, overall increased from prior. No definite intra-abdominal free air is seen. 2. Peripherally enhancing low-density structure in the left abdomen measuring approximately 3.8 cm; it is uncertain if this reflects a mass/fluid collection or focally dilated segment of small bowel. 3. Partially visualized pleural effusions with partial atelectasis of the lower lobes. 4. Nonspecific bilateral adrenal nodules, which may be further assessed with adrenal protocol CT. 5. Few nonspecific ill-defined low-density hepatic lesions, which may be better assessed with MRI. 6. Moderate to large hiatal hernia. Assessment/Plan Assessment: 61-year-old gentleman with multiple cormobidities, abdominal mass, s/p right hemicolectomy, with re-anastomosis, sent from the [facility] for evaluation of increased heart rate. Started on IV cardiazem in ED. CT scan significant for lower abd/pelvis mass mildly increased from 01/02/17. Currently on TPN. Sinus tachycardia 2/2 dehydration( less likely onTPN) VS underlying UTI Admit to telemetry. Continue IV Cardizem drip tritrate as necessary Trend EKG/top to rule out ACS. will continue with IVF Cardio consult in am Echo done 12/25/16 showed EF 55-60%, sclerosis of aortic valves Possible UTI urinalysis positive for leukoesterase, f/up urine culture VRE positive, ID consult to determine Abx coverage Seizure Disorder continue Keppra and dilantin Chronic anemia Rectal exam neg for hemorrhoids or fissures, guaic positive follow up CBC in a.m. History of PE continue lovenox Transaminitis Possible manifestation of prolonged phenytoin use. Check right upper quadrant ultrasound. Bladder mass Per brother is to follow up with a surgeon at [facility] for possible resection of the mass at the end of the month. obtain [facility] records Diet nutrition consult or contact [facility] for restarting TPN. DVTppx sc lovenox DNR/DNI As Ranked By This Provider Problem List: 1. Pelvic mass in male 2. Multifocal atrial tachycardia Core Measures/Miscellaneous Acute Coronary Syndrome ACS Diagnosis: No Cerebrovascular Accident CVA/TIA Diagnosis: No Congestive Heart Failure CHF Diagnosis: No VTE (View Protocol) VTE Risk Factors: Age > 40, Cancer/chemo/oth therapy No Mech VTE prophylaxis d/t: No contraindications No VTE Pharm Prophylaxis d/t: No contraindications VTE Diagnosis: No VTE Type: NONE VTE Confirmed by (Test): NONE Sepsis (View Protocol) Severe Sepsis Present: No Septic Shock Septic Shock Present: No Miscellaneous Documentation Attending Case Discussed With: KAIT SANTOS MD Primary Care Physician: GARRETT MACIAS MD Patient sees these Specialists cardio surgery ID Level of Patient Care: Telemetry MADALYN MONTERO 02/10/17 0117: Resident Review Statement Other Findings: 61-year-old gentleman with multiple comorbidities, recent surgery for abdominal mass, now on TPN was brought in to [facility] ED for persistent tachycardia. Labs showed leukocytosis and hypokalemia , as well as and 7 at this. On my review of EKG, although the atrial rate was greater than 100, I was unable to appreciate greater than 3 non-sinus P waves and the rhythm strip. EKG: Sinus tachycardia. 1. Sinus tachycardia versus multifocal atrial tachycardia: Admit to telemetry. Cardizem drip. If this indeed is MAT, associated hypokalemia or hypomagnesemia has to be corrected with electrolyte repletion along with initiation of additional medical therapy for MAT, BB or CCB. Hypomagnesemia promotes development of atrial and ventricular arrhythmias, azael MAT and Mag repletion can suppress MAT not only in cases of hypomagnesemia, but also in individuals with normal magnesium levels. Check Magnesium, replete as necessary. Replete K with a goal of 4-4.5. Rule out ACS. Add on free T4. Start IVF NS for volume expansion and supressing reflex tachycardia. Start Iv Ceftriaxone to treat urinary infection as a potential underlying cause of Tachy. 2. Chronic Price, with urinalysis positive for leukoesterase, high suspicion for urinary tract infection: Watch off antibiotics until ID evaluation. May consider IV ceftriaxone. Send urine for culture. Start IVF NS for volume expansion and supressing reflex tachycardia. May start IV Ceftriaxone to treat urinary infection as a potential underlying cause of Tachy, pending ID evaluation. No signs of infection at PICC line insertion. Patient records from [facility]. 3. Known chronic anemia: Check Hemoccult, check CBC in a.m. 4. Transaminitis: Possible manifestation of prolonged phenytoin use. Check right upper quadrant ultrasound. Follow nutrition consult for restarting TPN. Continue Lovenox for PE. DO NOT RESUSCITATE Lovenox for DVT prophylaxis. Nutrition consult for diet. 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 According to patient he did not undergo any surgery at [facility], no records available. He was transferred to [place] facility 2 days back and today patient was found to have tachycardia so patient was sent to ER. Patient does not have any complaints, denies chest pain, palpitations, shortness of breath, dizziness, loss of consciousness. He has chronic abdominal pain and distention. His chronic Price placed, currently on TPN. According to W 10 there is also mention about blood in stools which patient is unaware of. Given patient's mild cognitive impairment he is a poor historian. Vitals: T max 99.6, HR 120s to 130s, RR 20, blood pressure 110/67, saturating well on room air On examination: A O 3, cooperative, no acute distress, neck supple, JVD normal, no lymphadenopathy, mucosa dry, no focal neurological deficit, bilateral pedal edema, no obvious skin rashes or inflammation CVS: S1-S2, RRR, tachycardia. RS: Clear to auscultate bilaterally. Abdomen: Soft, NT, mildly distention, surgical scar, bowel sounds present. Price catheter Labs: WBC 12.6, neutrophils 80% hemoglobin 8.6, hematocrit 26.4, platelets 326, BUN 28 otherwise BMP unremarkable, calcium 8.0, AST 74, ALT 82, alkaline phosphatase 352, albumin 2.1 UA positive for 100 proteins, large leukocyte esterase trace, more than 75 WBC and packed with bacteria X-ray abdomen: No definite acute findings. Moderate to large volume of stool. CT abdomen and pelvis with IV contrast: 1. Redemonstrated large mass in the lower abdomen/pelvis which appears mildly increased in size from 01/02/2017. Foci of gas are again seen within the mass, overall increased from prior. No definite intra-abdominal free air is seen. 2. Peripherally enhancing low-density structure in the left abdomen measuring approximately 3.8 cm; it is uncertain if this reflects a mass/fluid collection or focally dilated segment of small bowel. 3. Partially visualized pleural effusions with partial atelectasis of the lower lobes. 4. Nonspecific bilateral adrenal nodules, which may be further assessed with adrenal protocol CT. 5. Few nonspecific ill-defined low-density hepatic lesions, which may be better assessed with MRI. 6. Moderate to large hiatal hernia. EKG: ? MAT Vs sinus tachy A and P 61-year-old male with complicated past medical history significant for abdominal tumor unable for resection with a right hemicolectomy was transferred to [facility] for further management and no details are available after that, patient has chronic Price catheter and on TPN was sent from [place] facility for persistent tachycardia patient's heart rate in 120s to 130s, there are 2 different morphologies of P wave with a questionable MAT. Dr. Aragon was called from ER. In previous hospitalization patient had SVT. Currently tachycardia can be reactive but the underlying processes, should rule out infection, ACS, intra-abdominal pathology. + Tachycardia + Intra-abdominal tumor pseudomyxoma peritonei + Chronic Price + Chronic iron deficiency anemia with hemoglobin trending down + Currently on TPN + Significant transaminitis with elevated alkaline phosphatase + History of PE, seizure, depression - Admit to telemetry - Continuous telemetry monitoring - Continue gentle hydration - Continue and titrate Cardizem drip - Consult cardiology - Blood cultures urine culture - ID consult for suspected catheter associated UTI with history of VRE - Trend troponin and EKG - Obtain records from [facility] regarding recent hospitalization - Right upper quadrant ultrasound - Stool guaiac - Check magnesium - Replace electrolytes - Continue TPN - Continue subcutaneous Lovenox for PE
--- NOTE | 2017-02-10 01:52 | NUR ---
HOUSE STAFF HER TO EVAL CM CONTINUES 130'S CARDIZEM INCREASED TO 7.5 ML/HR
--- NOTE | 2017-02-10 03:01 | NUR ---
TO CT VIA STRETCHER
--- NOTE | 2017-02-10 03:14 | NUR ---
RETD FROM CT CARDIZEM INCREASED TO 10ML/HR
--- NOTE | 2017-02-10 04:18 | NUR ---
REPORT CALLED TO IVAN JAIMES PT TO GO TO RM 112
--- NOTE | 2017-02-10 04:22 | RADIOLOGY REPORT ---
EXAMINATION: XR PORTABLE ABDOMEN CLINICAL INFORMATION: Follow-up, recent abdominal surgery COMPARISON: 01/02/2017 TECHNIQUE: AP view of the abdomen. FINDINGS: No definite free air is seen, though assessment is limited due to positioning. There is a moderate to large amount of stool within the colon. No specific findings of bowel obstruction. No suspicious calcifications are seen. There is haziness at the bilateral lung bases which may reflect a combination of pleural effusion and airspace opacification. No acute osseous findings are seen. IMPRESSION: No definite acute findings. Moderate to large volume of stool.
--- NOTE | 2017-02-10 04:41 | CT SCAN REPORT ---
EXAMINATION: CT ABDOMEN AND PELVIS WITH CONTRAST CLINICAL INFORMATION: Question of free air, recent abdominal surgery COMPARISON: 01/02/2017 TECHNIQUE: Multidetector volumetric imaging was performed of the abdomen and pelvis before and after the IV administration of 95 mL of Optiray 320 intravenous contrast. Sagittal and coronal reformatted images were obtained on the technologist's workstation. DLP: 475.7 cm in mGy-cm FINDINGS: LUNG BASES: There are partially visualized small to moderate bilateral pleural effusions with partial atelectasis of the lower lobes. LIVER, GALLBLADDER, AND BILIARY TREE: The liver is normal in size, shape, and attenuation. There are a few small ill-defined hypoattenuating lesions in the liver, not fully characterized on this exam. No biliary ductal dilatation is present. The gallbladder is grossly unremarkable. PANCREAS: Unremarkable. SPLEEN: Unremarkable. ADRENAL GLANDS: Bilateral adrenal nodules are noted, of nonspecific attenuation. KIDNEYS AND URETERS: Bilateral nephrograms are symmetric. There is mild left hydronephrosis. No obstructing calculi are seen. BLADDER: Decompressed with a Sanchez catheter. GASTROINTESTINAL TRACT: There is a moderate to large hiatal hernia. No definite evidence of bowel obstruction. A suture line is noted in the right lower quadrant. There is moderate stool in the colon. Presacral stranding is noted. No free air is seen. There is a peripherally enhancing low-density structure in the left abdomen on image 53/103 measuring 3.8 cm in diameter; it is uncertain if this reflects a mass/fluid collection or a focally dilated segment of small bowel. ABDOMINAL WALL: Small focus of gas is noted in the subcutaneous tissue of the mid to lower anterior abdominal wall. LYMPH NODES: No definite lymphadenopathy. VASCULAR: Unremarkable. PELVIC VISCERA: There is a redemonstrated large heterogeneous mass in the lower abdomen/pelvis. This measures approximately 16.6 x 14.7 cm in axial plane and 19.1 cm in craniocaudal dimension (previously 15.3 x 15.1 x 15.2 cm when measured in similar fashion on 01/02/2017). Regions of gas are again seen within the mass, overall increased compared to prior. OSSEOUS STRUCTURES: Healed right rib fractures are noted. There is partial loss of height of L4, similar to prior. IMPRESSION: 1. Redemonstrated large mass in the lower abdomen/pelvis which appears mildly increased in size from 01/02/2017. Foci of gas are again seen within the mass, overall increased from prior. No definite intra-abdominal free air is seen. 2. Peripherally enhancing low-density structure in the left abdomen measuring approximately 3.8 cm; it is uncertain if this reflects a mass/fluid collection or focally dilated segment of small bowel. 3. Partially visualized pleural effusions with partial atelectasis of the lower lobes. 4. Nonspecific bilateral adrenal nodules, which may be further assessed with adrenal protocol CT. 5. Few nonspecific ill-defined low-density hepatic lesions, which may be better assessed with MRI. 6. Moderate to large hiatal hernia.
[2017-02-10 05:00] VITALS: BP 104/64
--- NOTE | 2017-02-10 06:33 | Admission Certification ---
Admission Certification Certification Statement - As attending physician, I certify that at the time of - admission, based on clinical presentation, severity of - symptoms, need for further diagnostic testing and - therapeutic interventions, and risk of adverse outcomes - without in-hospital treatment, in my clinical assessment, - this patient requires an acute hospital stay for a minimum - of two nights or longer. I have also considered psychsocial - factors such as support system, advanced age, financial - issues, cognitive issues, and failed out-patient treatments, - past re-admission history, safety of patient, and lack of - compliance as applicable. Specific rationale supporting this admission is: MAT, history of SVT
[2017-02-10 06:48] LABS: ABSOLUTE BASOPHIL COUNT 0.1 /CUMM (0.0-0.2); ABSOLUTE EOSINOPHIL COUNT 0 /CUMM (0.0-0.7); ABSOLUTE GRANULOCYTE CT 8.7 /CUMM (1.4-6.5); BASOPHIL % 0.5 % (0.0-2.0); EOSINOPHIL % 0 % (0-5); GRANULOCYTE % 79.9 % (42.2-75.2); HEMATOCRIT 24.4 % (42-52); MEAN CORPUSCULAR HGB 27.2 PG (27.0-31.0); MEAN CORPUSCULAR HGB CONC 32.1 G/DL (33.0-37.0); MEAN CORPUSCULAR VOLUME 84.9 FL (80.0-94.0); MEAN PLATELET VOLUME 8.8 FL (7.4-10.4); PLATELET COUNT 309 /CUMM (130-400); RBC DISTRIBUTION WIDTH 17.8 % (11.5-14.5); RED BLOOD CELL CT 2.88 /CUMM (4.70-6.10); WHITE BLOOD CELL COUNT 10.9 /CUMM (4.8-10.8)
[2017-02-10 08:00] VITALS: BP 110/60
--- NOTE | 2017-02-10 09:05 | NUR ---
0500 ALERT, ORIENTED X3 PATIENT RECEIVED INTO [facility] FOR TELEMETRY CARE, RECORDS SECTION SUPERVISOR SINUS TACHYCARDIA WITH RARE PVC, HEART RATE 115 TO 122/MIN, CARDIZEM DRIP INFUSING AT 10 MG/HR ORDERED, PATIENT DENIES ANY C/O PAIN OR OTHER DISCOMFORT AT THIS TIME, SKIN PALE, WARM AND DRY, O2 SAT 93% ON RA- BREATHE SOUNDS CLEAR BILATERALLY, ABDOMEN DISTENDED BUT SOFT, +BS, PRE-HOSPITAL ACE TO GRAVITY WITH CLOUDY GARETH COLORED UO NOTED, MARITO PRE-HOSPITAL PICC INTACT- ONE PORT PATENT, ONE PORT FOUND TO BE PLUGGED, BC X2 DRAWN, AM LABWORK DRAWN, EKG DONE, ALPS PLACED BILATERALLY TO LE- BLE +2 EDEMA, PATIENT ORIENTED TO [facility] SURROUNDINGS/ROUTINE, ENCOURAGED TO VERBALIZE ANY QUESTIONS/CONCERNS [address] JOHANSEN 0700 15 MG CARDIZEM BOLUS GIVEN SLOWLY IV PER DR MONTERO- SBP MAINTAINED 104 TO 110/ DURING AND AFTER BOLUS 0730 HEART RATE 100'S TO 114/MIN, AWAITING AM MD ROUNDS
--- NOTE | 2017-02-10 10:53 | PN- Att Addend ---
Attending Addendum Attending Brief Note same day note ASSESSMENT "61-year-old male with complicated past medical history significant for abdominal tumor unable for resection with a right hemicolectomy was transferred to [facility] for further management and no details are available after that, patient has chronic Sanchez catheter and on TPN was sent from [facility] for persistent tachycardia patient's heart rate in 120s to 130s, there are 2 different morphologies of P wave with a questionable MAT. Dr. Aragon was called from ER. In previous hospitalization patient had SVT. Currently tachycardia can be reactive but the underlying processes, should rule out infection, ACS, intra-abdominal pathology. 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 + Anemia multifactorial + Currently on TPN + Significant transaminitis with elevated alkaline phosphatase + History of PE, seizure, depression - Admit to telemetry - Continuous telemetry monitoring - Continue gentle hydration - Continue and titrate Cardizem drip - Consult cardiology, oncology - Blood cultures urine culture - ID consult for suspected catheter associated UTI with history of VRE - Trend troponin and EKG - Obtain records from [facility] regarding recent hospitalization - Right upper quadrant ultrasound - Stool guaiac - Check magnesium - Replace electrolytes - Continue TPN - Continue subcutaneous Lovenox for PE continue plan of care as per admitting physician
--- NOTE | 2017-02-10 11:39 | RADIOLOGY REPORT ---
EXAMINATION: XR PORTABLE CHEST CLINICAL INFORMATION: Confirm central line location. COMPARISON: Chest x-ray and CT scan of the abdomen and pelvis obtained earlier 02/10/2017. TECHNIQUE: Portable AP upright view of the chest was obtained. FINDINGS: The lungs are hyperexpanded bilaterally. There is a right-sided PICC line, with the tip in the region of the cavoatrial junction. There are no pneumothoraces. There are left greater than right pleural effusions. Due to technique and poor inspiration comment the cardiac silhouette is difficult to assess. No definite focal consolidation is demonstrated. There are no acute osseous findings. IMPRESSION: 1. The lungs are hypoexpanded bilaterally. There are left greater than right pleural effusions. 2. There is a right-sided PICC line with the tip at the cavoatrial junction. There is no pneumothorax.
--- NOTE | 2017-02-10 11:55 | NUR ---
Patient refusing to work with physical therapy. Not responsive to verbal/physical stimuli while physical therapy is in the room instructing patient. Patient's affect is flat and refusing other care at times. Patient given emotional reassurance and encourage to comply with care to improve current status.
--- NOTE | 2017-02-10 13:10 | ULTRASOUND REPORT ---
EXAMINATION: US ABDOMEN LIMITED CLINICAL INFORMATION: Unexplained transaminitis.. COMPARISON: CT scan of the abdomen and pelvis earlier 02/10/2017. TECHNIQUE: Real-time imaging of the right upper quadrant abdominal viscera. Imaging is significantly suboptimal 22 extensive bowel gas and a large mass. FINDINGS: PANCREAS: Not visualized. LIVER: The liver is poorly demonstrated. Grossly, no abnormalities. GALLBLADDER: The gallbladder is not visualized. COMMON BILE DUCT: The common bile duct was not demonstrated. RIGHT KIDNEY: The patient was unable to turn decubitus, and the right kidney was not visualized. IMPRESSION: 1. Significantly suboptimal study due to bowel gas and mass in the abdomen.
--- NOTE | 2017-02-10 17:53 | Cons- Infect Disease ---
General Information and HPI Consulting Request Date of Consult: 02/10/17 Requested By: KAIT SANTOS MD Reason for Consult: Rule out UTI Source of Information: patient, old records Exam Limitations: unable to give history, poor historian History of Present Illness: This is a 61-year-old man with a history of pulmonary embolus, maintained on Coumadin in the past and, currently Lovenox, seizures, maintained on Dilantin, BPH and a pelvic mass first noted over 2 years prior to admission and not pursued by the patient, hospitalized over 6 weeks prior to admission with lower extremity edema and anemia, with a CT scan redemonstrating the pelvic mass, which was engulfing bowel loops, status post exploratory laparotomy with a right hemicolectomy though with the pelvic tumor unable to be resected secondary to its fusion to the bladder, treated empirically with Ceftriaxone for 10 days for a positive urine culture for Providencia, with his hospital course complicated by a fluctuating white blood cell count despite antibiotics, transferred to [place] after 12 days, where he was found to have Karen glabrata sepsis, treated with Anidulafungin, and an Enterococcus fecium UTI, treated with Ampicillin for 1 week, with a pelvic biopsy performed by IR, with results pending, placed on TPN via a PICC in anticipation of surgery for the pelvic tumor, and discharged just 5 days prior to admission to a short-term rehabilitation, admitted early this morning after he was sent to the emergency room because of tachycardia. On admission he had no complaints. He was afebrile. Laboratory data revealed a white blood cell count of 13,000, BUN/creatinine 28 and 0.7, alkaline phosphatase 352, AST/ALT 74 and 82. Urinalysis 10-15 RBC/greater than 75 WBCs. Chest x-ray revealed bilateral pleural effusions, left greater than right. Abdominal x-ray showed a moderate to large volume of stool. CT of the abdomen and pelvis redemonstrated a large mass in the lower abdomen/pelvis which appears mildly increased in size from the previous study, with foci of gas within the mass unchanged from previous study and with no free air; peripherally enhancing low density structure in the left abdomen, measuring 3.8 cm, possibly reflecting a mass/fluid collection or a focally dilated segment of small bowel. Right upper quadrant ultrasound was a significantly suboptimal study. He was followed off antibiotics and has remained afebrile overnight. At present he offers no specific complaints but is resistant to a complete exam. Allergies/Medications Allergies: Coded Allergies: NO KNOWN ALLERGIES (01/11/14) Home Med List: Acetaminophen (8 Hour) 650 MG TABLET.ER 1 TAB PO Q4H PRN PAIN/TEMP/> 101 ( Reported) Acetaminophen (Acephen) 650 MG SUPP.RECT 1 SUPP [place] Q4H PRN PAIN/TEMP>101 ( Reported) Albuterol Sulfate 2.5 MG/3 ML (0.083 %) VIAL.NEB 1 Vial INH/BRIT Q6H PRN SOB ( Reported) Bisacodyl 10 MG SUPP.RECT 1 SUP RC DAILY PRN CONSTIPATION (Reported) Diltiazem HCl (Diltiazem 12HR ER) 60 MG CAP.ER.12H 120 MG PO BID SVT Enoxaparin Sodium (Lovenox) 100 MG/ML SYRINGE 100 MG SC Q12H BLOOD THINNER ( Reported) Folic Acid 1 MG TABLET 1 TAB PO DAILY SUPPLEMENT (Reported) Levetiracetam (Keppra) 1,000 MG TABLET 1 TAB PO Q12H UNKNOWN (Reported) Loperamide HCl (Imodium A-D) 2 MG TABLET 1 TAB PO Q6H PRN LOOSE STOOL ( Reported) Magnesium Hydroxide (Milk Of Magnesia) 400 MG/5 ML ORAL.SUSP 30 ML PO DAILY PRN CONSTIPATION (Reported) Multivitamin (Daily Multiple Vitamin) 1 EACH TABLET 1 TAB PO DAILY SUPPLEMENT (Reported) Na Phos,M-B/Na Phos,Di-Ba (Fleet Enema) 19 GRAM-7 GRAM/118 ML ENEMA 1 E RC DAILY PRN CONSTIPATION (Reported) Omeprazole 20 MG CAPSULE.DR 40 MG PO DAILY AC stomach Ondansetron HCl 4 MG TABLET 1 TAB PO Q6P PRN N/V (Reported) Oxybutynin Chloride 5 MG TABLET 1 TAB PO DAILY (Reported) Phenytoin Sodium Extended 100 MG CAPSULE 2 CAP PO BID SEIZURES (Reported) Polyethylene Glycol 3350 (Miralax) 17 GRAM POWD.PACK 1 PAC PO DAILY GI ( Reported) dissolve in water Sertraline HCl 25 MG TABLET 25 MG PO DAILY mental health [TPN] TPN (Reported) Trazodone HCl 50 MG TABLET 1 TAB PO QHS INSOMNIA (Reported) Past History Travel History Traveled to [place] past 21 day No Medical History Neurological: seizure, childhood encephalitis EENT: NONE Cardiovascular: syncope (possible unwitnessed) Respiratory: pulmonary embolism (06/2014) Gastrointestinal: GERD (mild), hiatal hernia Hepatic: NONE Renal: benign prost hyperplasia Musculoskeletal: osteopenia; TL compression fractures Psychiatric: NONE Endocrine: osteopenia Blood Disorders: anemia, PE (06/2014) Cancer(s): NONE BRANCH CHIEF/Reproductive: NONE History of MRSA: No History of VRE: Yes History of CDIFF: No Isolation History: Contact Surgical History Surgical History: colon resection (s/p right hemicolectomy 12/2016), wrist surgery Family History Relations & Conditions If Any: FATHER, , Age 40-50; Cause: Cancer of unknown origin. MOTHER, , Age 50-60; Cause: Cancer of unknown origin. BROTHER ([employer]). Relation not specified for: *No pertinent family history Psychosocial History Where Do You Live? Extended Care Facility Services at Home: None Primary Language: German Smoking Status: Unknown If Ever Smoked Living Will? yes Power of Alarm Service Technician/HCP? unknown Name of POA/HCP: brother Functional Ability ADLs Independent: dressing, eating, toileting, bathing. Ambulation: independent IADLs Independent: shopping, housework, finances, food prep, telephone, transportation , medication admin. Review of Systems Review of Systems Cardiovascular: Denies: chest pain. Respiratory: Denies: cough, short of breath. GI: Reports: abdominal pain. Denies: diarrhea, nausea, vomiting. All Other Systems: Reviewed and Negative Exam & Diagnostic Data Last 24 Hrs of Vital Signs/I&O Vital Signs Date Time Temp Pulse Resp B/P B/P Pulse O2 O2 Flow FiO2 Mean Ox Delivery Rate 02/10 0800 99.2 100 18 110/60 97 Room Air Room Air 02/10 0800 97 Room Air Room Air 02/10 0658 116 20 108/70 02/10 0500 93 Room Air 02/10 0500 99.4 118 20 104/64 93 Room Air 02/10 0239 98.6 125 20 118/69 95 Room Air 02/10 0036 99.8 125 20 117/65 98 Nasal 2.0L Cannula 02/10 0001 136 02/09 2306 99.6 131 20 118/72 98 Nasal 2.0L Cannula 02/09 2253 133 20 110/67 98 Nasal 2.0L Cannula 02/09 2121 99.6 127 20 105/71 98 Nasal 2.0L Cannula Intake & Output 02/10 1600 02/10 0800 02/10 0000 Intake Total 757 195 Output Total 110 350 Balance 647 -155 Intake, IV 732 195 Intake, Oral 25 Number 1 1 Bowel Movements Output, Urine 110 350 Patient 191 lb 191 lb 198 lb Weight Weight Bed scale Estimated Measurement Method Physical Exam Other Physical Findings: He is lethargic but arousable, weak, pale and chronically ill appearing but in no acute distress. He is afebrile. Skin reveals no rash. HEENT exam is negative. Neck is supple with no adenopathy. Lungs are clear. Heart regular rhythm with no murmur. Abdomen is distended, tender on palpation, with a palpable mass in the lower abdomen, with positive bowel sounds. Back no CVA tenderness. Extremities 2+ edema both lower extremities; PICC in the right upper extremity with no inflammation at the site. Neuro is without focality. Sanchez catheter is in place. Last 24 Hours of Lab Results: Laboratory Tests 02/10 02/10 1230 0515 Chemistry Sodium (137 - 145 mmol/L) 140 Potassium (3.5 - 5.1 mmol/L) 3.6 3.4 L Chloride (98 - 107 mmol/L) 102 Carbon Dioxide (22 - 30 mmol/L) 31 H Anion Gap (5 - 16) 7 BUN (9 - 20 mg/dL) 32 H Creatinine (0.7 - 1.2 mg/dL) 0.7 Estimated GFR (>60 ml/min) > 60 BUN/Creatinine Ratio (7 - 25 %) 45.7 H Troponin I (<0.11 ng/ml) 0.03 0.04 Triglycerides (<150 mg/dL) 80 Cholesterol (< 200 MG/DL) 107 LDL Cholesterol, Calc (65 - 129 mg/dL) 73 HDL Cholesterol (40 - 60 mg/dL) 18 L Cholesterol/HDL Ratio (0.00 - 4.88 %) 5.9 H Hematology CBC w Diff NO MAN DIFF REQ WBC (4.8 - 10.8 /CUMM) 10.9 H RBC (4.70 - 6.10 /CUMM) 2.88 L Hgb (14.0 - 18.0 G/DL) 7.8 L Hct (42 - 52 %) 24.4 L MCV (80.0 - 94.0 FL) 84.9 MCH (27.0 - 31.0 PG) 27.2 RDW (11.5 - 14.5 %) 17.8 H Plt Count (130 - 400 /CUMM) 309 MPV (7.4 - 10.4 FL) 8.8 Gran % (42.2 - 75.2 %) 79.9 H Lymphocytes % (20.5 - 51.1 %) 10.6 L Monocytes % (1.7 - 9.3 %) 9.0 Eosinophils % (0 - 5 %) 0 Basophils % (0.0 - 2.0 %) 0.5 Absolute Granulocytes (1.4 - 6.5 /CUMM) 8.7 H Absolute Eosinophils (0.0 - 0.7 /CUMM) 0 Absolute Basophils (0.0 - 0.2 /CUMM) 0.1 PUBS MCHC (33.0 - 37.0 G/DL) 32.1 L 02/09 02/09 2340 2153 Chemistry Sodium (137 - 145 mmol/L) 137 Potassium (3.5 - 5.1 mmol/L) 3.5 Chloride (98 - 107 mmol/L) 102 Carbon Dioxide (22 - 30 mmol/L) 28 Anion Gap (5 - 16) 7 BUN (9 - 20 mg/dL) 28 H Creatinine (0.7 - 1.2 mg/dL) 0.7 Estimated GFR (>60 ml/min) > 60 BUN/Creatinine Ratio (7 - 25 %) 40.0 H Glucose (65 - 99 mg/dL) 104 H Calcium (8.4 - 10.2 mg/dL) 8.0 L Magnesium (1.6 - 2.3 mg/dL) 1.9 Total Bilirubin (0.2 - 1.3 mg/dL) 0.4 AST (17 - 59 U/L) 74 H ALT (21 - 72 U/L) 82 H Alkaline Phosphatase (< 127 U/L) 352 H Troponin I (<0.11 ng/ml) 0.07 Total Protein (6.3 - 8.2 g/dL) 6.0 L Albumin (3.5 - 5.0 g/dL) 2.1 L Globulin (1.9 - 4.2 gm/dL) 3.9 Albumin/Globulin Ratio (1.1 - 2.2 %) 0.5 L TSH (0.270 - 4.200 uIU/mL) 4.400 H Hematology CBC w Diff NO MAN DIFF REQ WBC (4.8 - 10.8 /CUMM) 12.6 H RBC (4.70 - 6.10 /CUMM) 3.14 L Hgb (14.0 - 18.0 G/DL) 8.6 L Hct (42 - 52 %) 26.4 L MCV (80.0 - 94.0 FL) 84.2 MCH (27.0 - 31.0 PG) 27.5 RDW (11.5 - 14.5 %) 17.9 H Plt Count (130 - 400 /CUMM) 326 MPV (7.4 - 10.4 FL) 7.9 Gran % (42.2 - 75.2 %) 80.3 H Lymphocytes % (20.5 - 51.1 %) 9.6 L Monocytes % (1.7 - 9.3 %) 9.2 Eosinophils % (0 - 5 %) 0.5 Basophils % (0.0 - 2.0 %) 0.4 Absolute Granulocytes (1.4 - 6.5 /CUMM) 10.1 H Absolute Lymphocytes (1.2 - 3.4 /CUMM) 1.2 Absolute Monocytes (0.10 - 0.60 /CUMM) 1.2 H Absolute Eosinophils (0.0 - 0.7 /CUMM) 0.1 Absolute Basophils (0.0 - 0.2 /CUMM) 0.1 PUBS MCHC (33.0 - 37.0 G/DL) 32.6 L Toxicology Phenytoin (10.0 - 20.0 ug/mL) 3.0 L Urines Urinalysis LIGHT H Urine Color (YEL,AMB,STR) YEL Urine Clarity (CLEAR) CLDY H Urine pH (5.0 - 8.0) 6.0 Ur Specific [place] (1.001 - 1.035) 1.025 Urine Protein (NEG,<30 MG/DL) 100 H Urine Ketones (NEG) NEG Urine Nitrite (NEG) NEG Urine Bilirubin (NEG) NEG Urine Urobilinogen (0.1 - 1.0 EU/dl) 1.0 Ur Leukocyte Esterase (NEG) LARGE H Ur Microscopic SEDIMENT EXAMINED Urine RBC (0 - 5 /HPF) 10-15 H Urine WBC (0 - 2 /HPF) > 75 H Ur Epithelial Cells (NONE,FEW) FEW Urine Bacteria (NEG/NONE) PACKD H Urine Mucus (FEW,NONE) FEW Urine Hemoglobin (NEG) LARGE H Urine Glucose (N MG/DL) NEG Last 24 Hours of Yuri Results: Blood cultures February 09 negative Blood cultures February 10 negative Urine culture February 09 greater than 100,000 colonies of gram-negative rods Diagnostic Data Recent Imaging Findings: Abdominal x-ray showed a moderate to large volume of stool. CT of the abdomen and pelvis redemonstrated a large mass in the lower abdomen/ pelvis which appears mildly increased in size from the previous study, with foci of gas within the mass unchanged from previous study and with no free air; peripherally enhancing low density structure in the left abdomen, measuring 3.8 cm, possibly reflecting a mass/fluid collection or a focally dilated segment of small bowel. Right upper quadrant ultrasound was a significantly suboptimal study. Assessment/Plan Assessment/Plan Impression: This is a 61-year-old man with a history of pulmonary embolus, treated in the past with Coumadin and now on Lovenox, seizures, maintained on Dilantin, BPH and a pelvic mass for over 2 years, hospitalized over 6 weeks prior to admission with lower extremity edema and anemia, status post right hemicolectomy, with the pelvic tumor unable to be resected secondary to its fusion to the bladder, transferred to [place] where he was found to have Karen glabrata sepsis, treated with Anidulafungin, and an Enterococcus fecium UTI, treated with Ampicillin for 1 week, status post pelvic biopsy, with results pending, and begun on TPN in anticipation of surgery for the pelvic tumor, admitted early this morning after he was sent from the rehabilitation facility because of tachycardia, found to be afebrile with a mild leukocytosis and anemia, with a urine culture positive for gram-negative rods. The significance of this positive urine culture is unclear as he has an indwelling Sanchez; therefore suspect this may just represent colonization. The source of his recent candidemia is unclear, but it was likely related to the pelvic mass and, as this has not yet been resected, he remains at risk for a recurrent or new infection secondary to this mass. As he remains afebrile and white blood cell count is now normal off antibiotics, however, I feel that he can continue to be followed off antibiotics. The elevated liver enzymes are of unclear etiology and should be monitored. Suggestion: 1. Follow-up recent cultures 2. Follow liver enzymes 3. Follow-up pathology on the pelvic mass biopsy performed at [place] 4. Continue to follow off antibiotics pending above Consult Acknowledgment - Thank you for your consult request.
--- NOTE | 2017-02-10 19:40 | Cons- Cardiology ---
General Information and HPI Consulting Request Date of Consult: 02/10/17 Requested By: KAIT SANTOS MD History of Present Illness: Mr. Carrion is a 61 year old male with history of pulmonary embolism. He does carry a history of seizures and has a malignant abdominal mass status post right hemicolectomy. There is a residual pelvic tumor. The patient was sent for evaluation of increased heart rate of up to 13o BPM. At present this patient denies any chest pain, pressure, tightness, shortness of breath, lightheadedness or palpitations. He previously reported episodes of lightheadedness with loss of consciousness but these episodes appear to have been related to seizures. On last visit this patient reported that higher levels of activity will cause shortness of breath. He does have chronic leg edema which has become worse over time. The patient has been VRE positive. Hematochezia was also reported and it is noted that his H/H is very low. Allergies/Medications Allergies: Coded Allergies: NO KNOWN ALLERGIES (01/11/14) Home Med List: Acetaminophen (8 Hour) 650 MG TABLET.ER 1 TAB PO Q4H PRN PAIN/TEMP/> 101 ( Reported) Acetaminophen (Acephen) 650 MG SUPP.RECT 1 SUPP [place] Q4H PRN PAIN/TEMP>101 ( Reported) Albuterol Sulfate 2.5 MG/3 ML (0.083 %) VIAL.NEB 1 Vial INH/BRIT Q6H PRN SOB ( Reported) Bisacodyl 10 MG SUPP.RECT 1 SUP RC DAILY PRN CONSTIPATION (Reported) Diltiazem HCl (Diltiazem 12HR ER) 60 MG CAP.ER.12H 120 MG PO BID SVT Enoxaparin Sodium (Lovenox) 100 MG/ML SYRINGE 100 MG SC Q12H BLOOD THINNER ( Reported) Folic Acid 1 MG TABLET 1 TAB PO DAILY SUPPLEMENT (Reported) Levetiracetam (Keppra) 1,000 MG TABLET 1 TAB PO Q12H UNKNOWN (Reported) Loperamide HCl (Imodium A-D) 2 MG TABLET 1 TAB PO Q6H PRN LOOSE STOOL ( Reported) Magnesium Hydroxide (Milk Of Magnesia) 400 MG/5 ML ORAL.SUSP 30 ML PO DAILY PRN CONSTIPATION (Reported) Multivitamin (Daily Multiple Vitamin) 1 EACH TABLET 1 TAB PO DAILY SUPPLEMENT (Reported) Na Phos,M-B/Na Phos,Di-Ba (Fleet Enema) 19 GRAM-7 GRAM/118 ML ENEMA 1 E RC DAILY PRN CONSTIPATION (Reported) Omeprazole 20 MG CAPSULE.DR 40 MG PO DAILY AC stomach Ondansetron HCl 4 MG TABLET 1 TAB PO Q6P PRN N/V (Reported) Oxybutynin Chloride 5 MG TABLET 1 TAB PO DAILY (Reported) Phenytoin Sodium Extended 100 MG CAPSULE 2 CAP PO BID SEIZURES (Reported) Polyethylene Glycol 3350 (Miralax) 17 GRAM POWD.PACK 1 PAC PO DAILY GI ( Reported) dissolve in water Sertraline HCl 25 MG TABLET 25 MG PO DAILY mental health [TPN] TPN (Reported) Trazodone HCl 50 MG TABLET 1 TAB PO QHS INSOMNIA (Reported) Review of Systems Review of Systems: A review of systems is unremarkable. Past History Travel History Traveled to [place] past 21 day No Medical History Neurological: seizure, childhood encephalitis EENT: NONE Cardiovascular: syncope (possible unwitnessed) Respiratory: pulmonary embolism (06/2014) Gastrointestinal: GERD (mild), hiatal hernia Hepatic: NONE Renal: benign prost hyperplasia Musculoskeletal: osteopenia; TL compression fractures Psychiatric: NONE Endocrine: osteopenia Blood Disorders: anemia, PE (06/2014) Cancer(s): NONE PARALEGAL INTERNSHIP/Reproductive: NONE Surgical History Surgical History: colon resection (s/p right hemicolectomy 12/2016), wrist surgery Family History Relations & Conditions If Any: FATHER, , Age 40-50; Cause: Cancer of unknown origin. MOTHER, , Age 50-60; Cause: Cancer of unknown origin. BROTHER ([employer]). Relation not specified for: *No pertinent family history Psychosocial History Where Do You Live? Extended Care Facility Services at Home: None Primary Language: Botswanan Smoking Status: Unknown If Ever Smoked Living Will? yes Power of Performance Architect/HCP? unknown Name of POA/HCP: brother Functional Ability ADLs Independent: dressing, eating, toileting, bathing. Ambulation: independent IADLs Independent: shopping, housework, finances, food prep, telephone, transportation , medication admin. Exam & Diagnostic Data Vital Signs and I&O Vital Signs Date Time Temp Pulse Resp B/P B/P Pulse O2 O2 Flow FiO2 Mean Ox Delivery Rate 02/10 0800 99.2 100 18 110/60 97 Room Air Room Air 02/10 0800 97 Room Air Room Air 02/10 0658 116 20 108/70 02/10 0500 93 Room Air 02/10 0500 99.4 118 20 104/64 93 Room Air 02/10 0239 98.6 125 20 118/69 95 Room Air 02/10 0036 99.8 125 20 117/65 98 Nasal 2.0L Cannula 02/10 0001 136 02/09 2306 99.6 131 20 118/72 98 Nasal 2.0L Cannula 02/09 2253 133 20 110/67 98 Nasal 2.0L Cannula 02/09 2121 99.6 127 20 105/71 98 Nasal 2.0L Cannula Intake & Output 02/10 1600 02/10 0800 02/10 0000 02/09 1600 02/09 0800 02/09 0000 Intake Total 757 195 Output Total 110 350 Balance 647 -155 Intake, IV 732 195 Intake, Oral 25 Number 1 1 Bowel Movements Output, Urine 110 350 Patient 191 lb 191 lb 198 lb Weight Weight Bed scale Estimated Measurement Method Physical Exam: General: WD/ overweight male in NAD; alert and oriented x 3 HEENT: NC/AT, PERRL, EOMI Neck: no JVD Heart: exam refused Lungs: exam refused Abdomen: exam refused Extremities: 2+ bilateral leg edema R>L Assessment/Plan Assessment/Plan * This patient appears to have a sinus tachycardia with PAC's that is mild and likely related to his severe anemia. Nevertheless, with his history of cancer and immobility a pulmonary embolism should be considered. I would obtain a D- dimer and ABG and if these studies are consistent with a PE the patient should have a CT angiogram to assess for PE. Would also obtain LE dopplers considering his immobility and leg swelling. Anticoagulation should be deferred until a PE is confirmed considering his low H/H. For now continue Cardizem 120mg BID. Consult Acknowledgment - Thank you for your consult request.
--- NOTE | 2017-02-10 21:05 | ULTRASOUND REPORT ---
EXAMINATION: US TRIPLEX OF LOWER EXTREMITIES, BILATERAL CLINICAL INFORMATION: Edema. COMPARISON: None TECHNIQUE: Color-flow triplex imaging with spectral analysis and compression Doppler were performed on the lower extremities. FINDINGS: Respiratory variation, normal compression and augmented flow are noted throughout the lower extremities. The visualized common femoral vein, superficial femoral vein, profunda femoral vein, popliteal vein and midcalf peroneal and posterior tibial venous segments show no evidence of deep venous thrombosis. In the right knee there is a popliteal fossa cysts measuring 3 x 0.4 x 1 cm. IMPRESSION: Normal triplex scan without evidence of deep venous thrombosis involving the lower extremities.
[2017-02-10 23:00] VITALS: BP 110/60
--- NOTE | 2017-02-11 02:35 | NUR ---
4 BEAT PVC NOTED AND REPORTED TO MD RIC JOHANSEN. NO CHANGES IN ORDERS AT THIS TIME. PATIENT RESTING COMFORTABLY IN BED. NO STRESS NOTED. WILL CONTINUE TO MONITOR.
--- NOTE | 2017-02-11 03:47 | NUR ---
PATIENT CONTINUES TO HAVE 3 BEAT RUN. MD RIC JOHANSEN AWARE. PATIENT DENIES ANY DISCOMFORT. NO DISTRESS NOTED. WILL CONTINUE TO MONITOR
[2017-02-11 06:46] LABS: ABSOLUTE BASOPHIL COUNT 0.1 /CUMM (0.0-0.2); ABSOLUTE EOSINOPHIL COUNT 0 /CUMM (0.0-0.7); ABSOLUTE GRANULOCYTE CT 7.8 /CUMM (1.4-6.5); ABSOLUTE MONOCYTE COUNT 0.8 /CUMM (0.10-0.60); BASOPHIL % 0.7 % (0.0-2.0); EOSINOPHIL % 0.5 % (0-5); GRANULOCYTE % 80.7 % (42.2-75.2); HEMATOCRIT 22.4 % (42-52); MEAN CORPUSCULAR HGB 27.7 PG (27.0-31.0); MEAN CORPUSCULAR HGB CONC 32.1 G/DL (33.0-37.0); MEAN CORPUSCULAR VOLUME 86.2 FL (80.0-94.0); PLATELET COUNT 314 /CUMM (130-400); RBC DISTRIBUTION WIDTH 18.1 % (11.5-14.5); WHITE BLOOD CELL COUNT 9.6 /CUMM (4.8-10.8)
[2017-02-11 08:00] VITALS: BP 120/70
--- NOTE | 2017-02-11 08:21 | PN- Housestaff ---
See Addendum Subjective Follow-up For: -Malignant neoplasm of appendix -Sinus tachycardia -Malnutrition -Iron deficiency anemia -History of pulmonary embolism Subjective: Afebrile, hemodynamically stable, saturating well on room air, and in no acute distress. Patient denies any current active complaints. No acute overnight events were reported. Review of Systems Constitutional: Reports: no symptoms. Objective Last 24 Hrs of Vital Signs/I&O Vital Signs Date Time Temp Pulse Resp B/P B/P Pulse O2 O2 Flow FiO2 Mean Ox Delivery Rate 02/11 0800 98.8 113 20 120/70 96 Room Air Room Air 02/10 2300 98.5 108 20 110/60 Intake & Output 02/11 1600 02/11 0800 02/11 0000 Intake Total 996.0 Output Total 400 450 Balance -400 546.0 Intake, IV 715 Intake, Lipid 24.0 Intake, Oral 120 Intake, 137 TPN/PPN Number 1 1 Bowel Movements Output, Urine 400 450 Physical Exam General Appearance: Alert, Oriented X3, Cooperative, No Acute Distress HEENT: Atraumatic, PERRLA, EOMI, Mucous Membr. moist/pink Cardiovascular: Regular Rate, Normal S1, Normal S2, No Murmurs Lungs: Clear to Auscultation, Normal Air Movement Abdomen: tender over the surgical incision Neurological: Normal Speech Extremities: No Clubbing, No Cyanosis, No Edema Current Medications: Current Medications Sig/Ghulam Start time Last Medication Dose Route Stop Time Status Admin Albuterol Sulfate 3 ML Q6H PRN 02/10 0400 AC INH Dextrose 25 GM ONCE ONE 02/10 1815 DC 02/10 IV 02/10 181 1813 Diltiazem HCl 120 MG BID 02/11 1445 AC PO Diltiazem HCl 125 MG Q12H 02/10 0045 DC 02/11 Sodium Chloride 100 ML IV 1129 Enoxaparin Sodium 100 MG Q12H 02/10 1000 DC 02/11 SC 0937 Fat Emulsion 350 ML 1900 02/11 1900 AC Intravenous IV 02/12 1859 Fat Emulsion 350 ML 1900 02/10 1900 AC 02/10 Intravenous IV 02/11 1859 1925 Ferrous Sulfate 325 MG DAILY 02/12 1000 AC PO Folic Acid 1 MG DAILY 02/10 1000 AC 02/11 PO 0936 Ibuprofen 600 MG Q6P PRN 02/10 0345 AC PO Levetiracetam 1,000 MG Q12 02/10 0500 AC 02/11 PO 0936 Multivitamins 1 TAB DAILY 02/10 1000 AC 02/11 Therapeutic PO 0936 Omeprazole 40 MG DAILY AC 02/10 0700 AC 02/11 PO 0635 Ondansetron HCl 4 MG Q6P PRN 02/10 0400 AC PO Oxybutynin Chloride 5 MG DAILY 02/10 1000 AC 02/11 PO 0936 Oxycodone HCl 5 MG Q6P PRN 02/10 0345 AC PO Phenytoin 200 MG BID 02/10 0600 AC 02/11 PO 0936 Potassium Chloride 40 MEQ ONCE ONE 02/10 1915 DC 02/10 PO 02/10 191 2138 Potassium Chloride 40 MEQ ONCE ONE 02/10 1900 CAN PO 02/10 190 Sertraline HCl 25 MG DAILY 02/10 1000 AC 02/11 PO 0936 Sodium Chloride 1,000 ML .[id number] 02/10 0345 DC 02/10 IV 02/11 0624 1801 Total Parenteral 1 UNIT 1900 02/11 1900 AC Nutrition IV 02/12 1859 Total Parenteral 1 UNIT ONE 02/10 1900 AC 02/10 Nutrition IV 02/11 185 1926 Trazodone HCl 50 MG AT BEDTIME 02/10 2200 AC 02/10 PO 2139 Last 24 Hrs of Lab/Yuri Results Last 24 Hrs of Labs/Mics: Laboratory Tests 02/11/17 0500: Anion Gap 8, Estimated GFR > 60, Glucose 103 H, Calcium 7.7 L, Phosphorus 3.8, Magnesium 1.6, Total Bilirubin 0.3, AST 64 H, ALT 75 H, Albumin 1.9 L, CBC w Diff NO MAN DIFF REQ, RBC 2.60 L, MCV 86.2, MCH 27.7, RDW 18.1 H, MPV 9.0, Gran % 80.7 H, Lymphocytes % 10.2 L, Monocytes % 7.9, Eosinophils % 0.5, Basophils % 0.7, Absolute Granulocytes 7.8 H, Absolute Lymphocytes 1.0 L, Absolute Monocytes 0.8 H, Absolute Eosinophils 0, Absolute Basophils 0.1, PUBS MCHC 32.1 L 02/10/172024: D-Dimer High Sensitivty 1080 H 02/10/172014: pH 7.49 H, pCO2 35, pO2 81, HCO3 26, ABG O2 Sat (Measured) 95.0 L, P-50 (Temp Corrected) N, Carboxyhemoglobin 0.6 L, O2 Concentration % R/A, Temperature 98.9 , Phlebotomy Draw Site LEFT RADIAL Assessment/Plan Assessment: 61-year-old male with complicated past medical history significant for abdominal tumor unable for resection with a right hemicolectomy was transferred to [facility] for further management, further detail can be found in the patient chart. patient has chronic Sanchez catheter and on TPN was sent from [facility] for persistent tachycardia patient's heart rate in 120s to 130s. Had a history of SVT. Currently tachycardia can be reactive but the underlying processes, should rule out infection, ACS, intra-abdominal pathology. Patient was admitted, Dr. Aragon resolution manager was consulted, infection was ruled out, ACS was ruled out, and pulmonary embolism was ruled out #Tachycardia * Pulmonary embolism was ruled out with CTA * We'll switch Cardizem drip to oral Cardizem * We will monitor heartrate and rhythm #Intra-abdominal tumor pseudomyxoma peritonei * Patient has appointment with [facility] oncologists on 02/25/17 * Patient was sent to the skilled nursing until his albumin improved to about 3 * We will instruct patient to follow up with surgical oncologist at [facility], Dr. Jr Asher #Chronic iron deficiency anemia with hemoglobin trending down * Patient hemoglobin dropped this a.m. * We will transfuse 1 packed RBCs * Patient last iron study was done on December 25 shows iron deficiency anemia * We will start patient on iron supplements * We'll check CBC tomorrow morning #Currently on TPN * TPN information was pulled out the skilled nursing * At skilled nursing he takes TPN and regular diet * We will continue the same regimen he is following at the skilled nursing #seizure, depression * Continue trazodone 50 mg at bedtime * Continue sertraline 25 mg daily by mouth * Continue phenytoin Diet: TPN and regular diet DVT prophylaxis with Alps DNR/DNI Problem List: 1. Sinus tachycardia 2. Malnutrition Pain Ratin Pain Location: back Pain Goal: Remain pain free Pain Plan: See A&P Tomorrow's Labs & Rationales: CBC and icu bundle
--- NOTE | 2017-02-11 10:35 | PN- Infect Dx ---
Subjective Subjective: Afebrile. He is anxious about his upcoming CTA of the chest. He will not allow a full exam of the abdomen but does not offer any specific complaints. Objective Last 24 Hrs of Vital Signs/I&O Vital Signs Date Time Temp Pulse Resp B/P B/P Pulse O2 O2 Flow FiO2 Mean Ox Delivery Rate 02/11 08 98.8 113 20 120/70 96 Room Air Room Air 02/10 2300 98.5 108 20 110/60 Intake & Output 02/11 1600 02/11 0800 02/11 0000 Intake Total 996.0 Output Total 400 450 Balance -400 546.0 Intake, IV 715 Intake, Lipid 24.0 Intake, Oral 120 Intake, 137 TPN/PPN Number 1 1 Bowel Movements Output, Urine 400 450 Physical Exam Other Physical Findings: He is awake and alert, anxious, but in no acute distress Lungs are clear Heart regular rhythm with no murmur Abdomen is distended, positive bowel sounds, tender on minimal palpation Extremities 2+ edema both lower extremities; PICC in the right upper extremity with no inflammation at the site Sanchez catheter remains in place with sediment noted Results Last 24 Hours of Lab Results: Laboratory Tests 02/11 02/10 02/10 0500 2024 2014 Blood Gas pH (7.35 - 7.45 PH) 7.49 H pCO2 (35 - 45 TORR) 35 pO2 (80 - 100 TORR) 81 HCO3 (21 - 28 MEQ/L) 26 ABG O2 Sat (Measured) (>96.0 %) 95.0 L P-50 (Temp Corrected) N Carboxyhemoglobin (1.5 - 5.0 %) 0.6 L O2 Concentration % R/A Temperature (97.0 - 100.0 FARH) 98.9 Chemistry Sodium (137 - 145 mmol/L) 142 Potassium (3.5 - 5.1 mmol/L) 3.9 Chloride (98 - 107 mmol/L) 105 Carbon Dioxide (22 - 30 mmol/L) 28 Anion Gap (5 - 16) 8 BUN (9 - 20 mg/dL) 27 H Creatinine (0.7 - 1.2 mg/dL) 0.7 Estimated GFR (>60 ml/min) > 60 Glucose (65 - 99 mg/dL) 103 H Calcium (8.4 - 10.2 mg/dL) 7.7 L Phosphorus (2.5 - 4.5 mg/dL) 3.8 Magnesium (1.6 - 2.3 mg/dL) 1.6 Total Bilirubin (0.2 - 1.3 mg/dL) 0.3 AST (17 - 59 U/L) 64 H ALT (21 - 72 U/L) 75 H Albumin (3.5 - 5.0 g/dL) 1.9 L Coagulation D-Dimer High Sensitivty (0 - 243 ng/ml) 1080 H Hematology CBC w Diff NO MAN DIFF REQ WBC (4.8 - 10.8 /CUMM) 9.6 RBC (4.70 - 6.10 /CUMM) 2.60 L Hgb (14.0 - 18.0 G/DL) 7.2 *L Hct (42 - 52 %) 22.4 L MCV (80.0 - 94.0 FL) 86.2 MCH (27.0 - 31.0 PG) 27.7 RDW (11.5 - 14.5 %) 18.1 H Plt Count (130 - 400 /CUMM) 314 MPV (7.4 - 10.4 FL) 9.0 Gran % (42.2 - 75.2 %) 80.7 H Lymphocytes % (20.5 - 51.1 %) 10.2 L Monocytes % (1.7 - 9.3 %) 7.9 Eosinophils % (0 - 5 %) 0.5 Basophils % (0.0 - 2.0 %) 0.7 Absolute Granulocytes (1.4 - 6.5 /CUMM) 7.8 H Absolute Lymphocytes (1.2 - 3.4 /CUMM) 1.0 L Absolute Monocytes (0.10 - 0.60 /CUMM) 0.8 H Absolute Eosinophils (0.0 - 0.7 /CUMM) 0 Absolute Basophils (0.0 - 0.2 /CUMM) 0.1 PUBS MCHC (33.0 - 37.0 G/DL) 32.1 L Miscellaneous Phlebotomy Draw Site LEFT RADIAL 02/10 1230 Chemistry Potassium (3.5 - 5.1 mmol/L) 3.6 Troponin I (<0.11 ng/ml) 0.03 Last 24 Hours of Yuri Results: Blood cultures February 09 negative Blood cultures February 10 negative Urine culture February 10 greater than 100,000 colonies of Escherichia coli and Enterococcus Stool C. difficile February 09 negative Recent Imaging Studies: Dopplers of both lower extremities February 10 negative for DVT; a right popliteal fossa cyst is noted Assessment/Plan Impression: Stable with temperatures remaining normal and white blood cell count now normal off antibiotics and with recent blood cultures negative. The positive urine culture likely represents colonization secondary to the Sanchez catheter, which remains in place presumably secondary to the concern of the pelvic mass invading the bladder, but options such as intermittent straight catheterization could be considered. His H&H has decreased further today and will require further evaluation. His elevated liver enzymes are of unclear etiology, with CT scan revealing a few nonspecific ill-defined low-density hepatic lesions, possibly representing metastatic disease. Suggestion: 1. Further evaluation and management of his anemia per Medicine 2. Consider MRI of the abdomen to further evaluate the liver lesions seen on the recent CT scan 3. Consider removal of the Sanchez and initiation of straight cath protocol if needed 4. Follow-up pathology on the pelvic mass biopsy performed at [facility] 5. Continue to follow off antibiotics
--- NOTE | 2017-02-11 12:01 | NUR ---
PHYSICAL THERAPY: ATTEMPTED TO SEE Pt THIS A.M. Pt ADAMENTLY REFUSING P.T. AND BECOMING UPSET/AGITATED WITH ENCOURAGEMENT AND EDUCATION. Pt REFUSING TO STATE WHY HE DOES NOT WANT TO PARTICIPATE SAYING "YOU FIGURE IT OUT, TALK TO MY DOCTORS." UPON DISCUSSION WITH CLOTH INSPECTOR, MD UNDERSTANDING Pt REFUSAL AND STATES TO HOLD P.T. UNTIL TACHYCARDIA IS RESOLVED.
--- NOTE | 2017-02-11 12:14 | Cons- Oncology ---
General Information and HPI Consulting Request Date of Consult: 02/11/17 Requested By: BART CUBA Reason for Consult: Tachycardia, pseudomyxoma peritonei Source of Information: patient, old records Exam Limitations: no limitations, poor historian History of Present Illness: Mr. 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 He was recently hospitalized at [facility] in 2016 for an intra- abdominal mass for which he underwent evaluation with exploratory laparoscopy and right hemicolectomy with re-anastomosis but primary mass was left intact due to concern for mucinous etiology and invasion into the bladder wall. He further progressed with sepsis and was transferred to [facility] in December 2016 for further management. At [facility], medical oncology, surgical oncology, ID, and IR were all consulted. 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 Tumor has a low-grade appearance. Tumor was felt to be suggestive of appendiceal origin. Due to his nutritional status, surgical oncology is hesistant in taking him to the OR. Medical oncology was consulted and felt that there is no intervention that they can provide at the moment. He was discharged with plan to follow up with Dr. Letty Cota of medical oncology and Dr. Jr Asher of surgical oncology. During admission, he was also noed to have candidemia with rosalei glabrata and was treated with andulafungin for 2 weeks. TTE was negative for vegetation. He was also extremely malnourished. He was started on TPN and kept oral intake as much as most. He had severe anasarca. He also had anemia which was likely to be iron deficiency and chronic blood loss. He was changed to enoxaparin for his anticoagulation. He was discharged to [facility] on 02/05/2017. Since discharge, he was noted to have HR in the 120s-130s. He had some blood in his stool. He denies any symptoms this morning. He does not want to provide much history or examination. Allergies/Medications Allergies: Coded Allergies: NO KNOWN ALLERGIES (01/11/14) Home Med List: Acetaminophen (8 Hour) 650 MG TABLET.ER 1 TAB PO Q4H PRN PAIN/TEMP/> 101 ( Reported) Acetaminophen (Acephen) 650 MG SUPP.RECT 1 SUPP MN Q4H PRN PAIN/TEMP>101 ( Reported) Albuterol Sulfate 2.5 MG/3 ML (0.083 %) VIAL.NEB 1 Vial INH/BRIT Q6H PRN SOB ( Reported) Bisacodyl 10 MG SUPP.RECT 1 SUP RC DAILY PRN CONSTIPATION (Reported) Diltiazem HCl (Diltiazem 12HR ER) 60 MG CAP.ER.12H 120 MG PO BID SVT Enoxaparin Sodium (Lovenox) 100 MG/ML SYRINGE 100 MG SC Q12H BLOOD THINNER ( Reported) Folic Acid 1 MG TABLET 1 TAB PO DAILY SUPPLEMENT (Reported) Levetiracetam (Keppra) 1,000 MG TABLET 1 TAB PO Q12H UNKNOWN (Reported) Loperamide HCl (Imodium A-D) 2 MG TABLET 1 TAB PO Q6H PRN LOOSE STOOL ( Reported) Magnesium Hydroxide (Milk Of Magnesia) 400 MG/5 ML ORAL.SUSP 30 ML PO DAILY PRN CONSTIPATION (Reported) Multivitamin (Daily Multiple Vitamin) 1 EACH TABLET 1 TAB PO DAILY SUPPLEMENT (Reported) Na Phos,M-B/Na Phos,Di-Ba (Fleet Enema) 19 GRAM-7 GRAM/118 ML ENEMA 1 E RC DAILY PRN CONSTIPATION (Reported) Omeprazole 20 MG CAPSULE.DR 40 MG PO DAILY AC stomach Ondansetron HCl 4 MG TABLET 1 TAB PO Q6P PRN N/V (Reported) Oxybutynin Chloride 5 MG TABLET 1 TAB PO DAILY (Reported) Phenytoin Sodium Extended 100 MG CAPSULE 2 CAP PO BID SEIZURES (Reported) Polyethylene Glycol 3350 (Miralax) 17 GRAM POWD.PACK 1 PAC PO DAILY GI ( Reported) dissolve in water Sertraline HCl 25 MG TABLET 25 MG PO DAILY mental health [TPN] TPN (Reported) Trazodone HCl 50 MG TABLET 1 TAB PO QHS INSOMNIA (Reported) Current Medications: Current Medications Sig/Ghulam Start time Last Medication Dose Route Stop Time Status Admin Albuterol Sulfate 3 ML Q6H PRN 02/10 0400 AC INH Alteplase, 2 MG ONE ONE 02/10 915 CAN Recombinant IV 06/14 0916 Dextrose 25 GM ONCE ONE 02/10 1815 DC 02/10 IV 02/10 1816 1813 Diltiazem HCl 125 MG Q12H 02/10 0045 AC 02/11 Sodium Chloride 100 ML IV 0036 Enoxaparin Sodium 100 MG Q12H 02/10 1000 AC 02/10 SC 2139 Fat Emulsion 350 ML 1900 02/10 1900 AC 02/10 Intravenous IV 02/11 1859 1925 Folic Acid 1 MG DAILY 02/10 1000 AC 02/10 PO 1055 Ibuprofen 600 MG Q6P PRN 02/10 0345 AC PO Levetiracetam 1,000 MG Q12 02/10 0500 AC 02/10 PO 2138 Multivitamins 1 TAB DAILY 02/10 1000 AC 02/10 Therapeutic PO 1055 Omeprazole 40 MG DAILY AC 02/10 0700 AC 02/11 PO 0635 Ondansetron HCl 4 MG Q6P PRN 02/10 0400 AC PO Oxybutynin Chloride 5 MG DAILY 02/10 1000 AC 02/10 PO 1054 Oxycodone HCl 5 MG Q6P PRN 02/10 0345 AC PO Phenytoin 200 MG BID 02/10 0600 AC 02/10 PO 2138 Potassium Chloride 40 MEQ ONCE ONE 02/10 1915 DC 02/10 PO 02/10 1916 2138 Potassium Chloride 40 MEQ ONCE ONE 02/10 1900 CAN PO 02/10 1901 Sertraline HCl 25 MG DAILY 02/10 1000 AC 02/10 PO 1055 Sodium Chloride 1,000 ML .[id number] 02/10 0345 DC 02/10 IV 02/11 0624 1801 Total Parenteral 1 UNIT ONE 02/10 1900 AC 02/10 Nutrition IV 02/11 1859 1926 Trazodone HCl 50 MG AT BEDTIME 02/10 2200 AC 02/10 PO 2139 Review of Systems Review of Systems Constitutional: Denies: chills, fever. Cardiovascular: Denies: chest pain. Respiratory: Denies: short of breath. GI: Reports: abdominal pain, nausea, bloody stool. Musculoskeletal: Reports: back pain, joint pain, joint swelling. Neurological/Psychological: Reports: confusion, emotional problems. Hematologic/Endocrine: Reports: bruising, bleeding. Immunologic/Allergic: Denies: lymphadenopathy. All Other Systems: Reviewed and Negative Past History Travel History Traveled to [place] past 21 day No Medical History Neurological: seizure, childhood encephalitis EENT: NONE Cardiovascular: syncope (possible unwitnessed) Respiratory: pulmonary embolism (06/2014) Gastrointestinal: GERD (mild), hiatal hernia Hepatic: NONE Renal: benign prost hyperplasia Musculoskeletal: osteopenia; TL compression fractures Psychiatric: NONE Endocrine: osteopenia Blood Disorders: anemia, PE (06/2014) Cancer(s): NONE OFFICE TECHNICIAN/Reproductive: NONE Surgical History Surgical History: colon resection (s/p right hemicolectomy 12/2016), wrist surgery Family History Relations & Conditions If Any: FATHER, , Age 40-50; Cause: Cancer of unknown origin. MOTHER, , Age 50-60; Cause: Cancer of unknown origin. BROTHER ([employer]). Relation not specified for: *No pertinent family history Psychosocial History Where Do You Live? Extended Care Facility Services at Home: None Primary Language: Greenlandic Smoking Status: Unknown If Ever Smoked Living Will? yes Power of Paid Search Analyst/HCP? unknown Name of POA/HCP: brother Functional Ability ADLs Independent: dressing, eating, toileting, bathing. Ambulation: independent IADLs Independent: shopping, housework, finances, food prep, telephone, transportation , medication admin. Exam & Diagnostic Data Vital Signs and I&O Vital Signs Date Time Temp Pulse Resp B/P B/P Pulse O2 O2 Flow FiO2 Mean Ox Delivery Rate 02/10 2300 98.5 108 20 110/60 Intake & Output 02/11 1600 02/11 0800 02/11 0000 Intake Total 996.0 Output Total 450 Balance 546.0 Intake, IV 715 Intake, Lipid 24.0 Intake, Oral 120 Intake, 137 TPN/PPN Number 1 Bowel Movements Output, Urine 450 Physical Exam General Appearance: no apparent distress, alert, awake, comfortable, thin Head: atraumatic Eyes: Bilateral: PERRL. Ears, Nose, Throat: moist mucus membranes Respiratory: chest non-tender, no respiratory distress, quiet respiration Cardiovascular: tachycardia Gastrointestinal: normal bowel sounds, patient refused further examinations Extremities: 3+ BLE edema Neurologic/Psych: awake, alert, oriented x 3 Last 48 Hours of Lab Results: Laboratory Tests 02/11 02/10 02/10 0500 2024 2014 Blood Gas pH (7.35 - 7.45 PH) 7.49 H pCO2 (35 - 45 TORR) 35 pO2 (80 - 100 TORR) 81 HCO3 (21 - 28 MEQ/L) 26 ABG O2 Sat (Measured) (>96.0 %) 95.0 L P-50 (Temp Corrected) N Carboxyhemoglobin (1.5 - 5.0 %) 0.6 L O2 Concentration % R/A Temperature (97.0 - 100.0 FARH) 98.9 Chemistry Sodium (137 - 145 mmol/L) 142 Potassium (3.5 - 5.1 mmol/L) 3.9 Chloride (98 - 107 mmol/L) 105 Carbon Dioxide (22 - 30 mmol/L) 28 Anion Gap (5 - 16) 8 BUN (9 - 20 mg/dL) 27 H Creatinine (0.7 - 1.2 mg/dL) 0.7 Estimated GFR (>60 ml/min) > 60 Glucose (65 - 99 mg/dL) 103 H Calcium (8.4 - 10.2 mg/dL) 7.7 L Phosphorus (2.5 - 4.5 mg/dL) 3.8 Magnesium (1.6 - 2.3 mg/dL) 1.6 Total Bilirubin (0.2 - 1.3 mg/dL) 0.3 AST (17 - 59 U/L) 64 H ALT (21 - 72 U/L) 75 H Albumin (3.5 - 5.0 g/dL) 1.9 L Coagulation D-Dimer High Sensitivty (0 - 243 ng/ml) 1080 H Hematology CBC w Diff NO MAN DIFF REQ WBC (4.8 - 10.8 /CUMM) 9.6 RBC (4.70 - 6.10 /CUMM) 2.60 L Hgb (14.0 - 18.0 G/DL) 7.2 *L Hct (42 - 52 %) 22.4 L MCV (80.0 - 94.0 FL) 86.2 MCH (27.0 - 31.0 PG) 27.7 RDW (11.5 - 14.5 %) 18.1 H Plt Count (130 - 400 /CUMM) 314 MPV (7.4 - 10.4 FL) 9.0 Gran % (42.2 - 75.2 %) 80.7 H Lymphocytes % (20.5 - 51.1 %) 10.2 L Monocytes % (1.7 - 9.3 %) 7.9 Eosinophils % (0 - 5 %) 0.5 Basophils % (0.0 - 2.0 %) 0.7 Absolute Granulocytes (1.4 - 6.5 /CUMM) 7.8 H Absolute Lymphocytes (1.2 - 3.4 /CUMM) 1.0 L Absolute Monocytes (0.10 - 0.60 /CUMM) 0.8 H Absolute Eosinophils (0.0 - 0.7 /CUMM) 0 Absolute Basophils (0.0 - 0.2 /CUMM) 0.1 PUBS MCHC (33.0 - 37.0 G/DL) 32.1 L Miscellaneous Phlebotomy Draw Site LEFT RADIAL 02/10 02/10 1230 0515 Chemistry Sodium (137 - 145 mmol/L) 140 Potassium (3.5 - 5.1 mmol/L) 3.6 3.4 L Chloride (98 - 107 mmol/L) 102 Carbon Dioxide (22 - 30 mmol/L) 31 H Anion Gap (5 - 16) 7 BUN (9 - 20 mg/dL) 32 H Creatinine (0.7 - 1.2 mg/dL) 0.7 Estimated GFR (>60 ml/min) > 60 BUN/Creatinine Ratio (7 - 25 %) 45.7 H Troponin I (<0.11 ng/ml) 0.03 0.04 Triglycerides (<150 mg/dL) 80 Cholesterol (< 200 MG/DL) 107 LDL Cholesterol, Calc (65 - 129 mg/dL) 73 HDL Cholesterol (40 - 60 mg/dL) 18 L Cholesterol/HDL Ratio (0.00 - 4.88 %) 5.9 H Hematology CBC w Diff NO MAN DIFF REQ WBC (4.8 - 10.8 /CUMM) 10.9 H RBC (4.70 - 6.10 /CUMM) 2.88 L Hgb (14.0 - 18.0 G/DL) 7.8 L Hct (42 - 52 %) 24.4 L MCV (80.0 - 94.0 FL) 84.9 MCH (27.0 - 31.0 PG) 27.2 RDW (11.5 - 14.5 %) 17.8 H Plt Count (130 - 400 /CUMM) 309 MPV (7.4 - 10.4 FL) 8.8 Gran % (42.2 - 75.2 %) 79.9 H Lymphocytes % (20.5 - 51.1 %) 10.6 L Monocytes % (1.7 - 9.3 %) 9.0 Eosinophils % (0 - 5 %) 0 Basophils % (0.0 - 2.0 %) 0.5 Absolute Granulocytes (1.4 - 6.5 /CUMM) 8.7 H Absolute Eosinophils (0.0 - 0.7 /CUMM) 0 Absolute Basophils (0.0 - 0.2 /CUMM) 0.1 PUBS MCHC (33.0 - 37.0 G/DL) 32.1 L 02/09 02/09 2340 2153 Chemistry Sodium (137 - 145 mmol/L) 137 Potassium (3.5 - 5.1 mmol/L) 3.5 Chloride (98 - 107 mmol/L) 102 Carbon Dioxide (22 - 30 mmol/L) 28 Anion Gap (5 - 16) 7 BUN (9 - 20 mg/dL) 28 H Creatinine (0.7 - 1.2 mg/dL) 0.7 Estimated GFR (>60 ml/min) > 60 BUN/Creatinine Ratio (7 - 25 %) 40.0 H Glucose (65 - 99 mg/dL) 104 H Calcium (8.4 - 10.2 mg/dL) 8.0 L Magnesium (1.6 - 2.3 mg/dL) 1.9 Total Bilirubin (0.2 - 1.3 mg/dL) 0.4 AST (17 - 59 U/L) 74 H ALT (21 - 72 U/L) 82 H Alkaline Phosphatase (< 127 U/L) 352 H Troponin I (<0.11 ng/ml) 0.07 Total Protein (6.3 - 8.2 g/dL) 6.0 L Albumin (3.5 - 5.0 g/dL) 2.1 L Globulin (1.9 - 4.2 gm/dL) 3.9 Albumin/Globulin Ratio (1.1 - 2.2 %) 0.5 L TSH (0.270 - 4.200 uIU/mL) 4.400 H Hematology CBC w Diff NO MAN DIFF REQ WBC (4.8 - 10.8 /CUMM) 12.6 H RBC (4.70 - 6.10 /CUMM) 3.14 L Hgb (14.0 - 18.0 G/DL) 8.6 L Hct (42 - 52 %) 26.4 L MCV (80.0 - 94.0 FL) 84.2 MCH (27.0 - 31.0 PG) 27.5 RDW (11.5 - 14.5 %) 17.9 H Plt Count (130 - 400 /CUMM) 326 MPV (7.4 - 10.4 FL) 7.9 Gran % (42.2 - 75.2 %) 80.3 H Lymphocytes % (20.5 - 51.1 %) 9.6 L Monocytes % (1.7 - 9.3 %) 9.2 Eosinophils % (0 - 5 %) 0.5 Basophils % (0.0 - 2.0 %) 0.4 Absolute Granulocytes (1.4 - 6.5 /CUMM) 10.1 H Absolute Lymphocytes (1.2 - 3.4 /CUMM) 1.2 Absolute Monocytes (0.10 - 0.60 /CUMM) 1.2 H Absolute Eosinophils (0.0 - 0.7 /CUMM) 0.1 Absolute Basophils (0.0 - 0.2 /CUMM) 0.1 PUBS MCHC (33.0 - 37.0 G/DL) 32.6 L Toxicology Phenytoin (10.0 - 20.0 ug/mL) 3.0 L Urines Urinalysis LIGHT H Urine Color (YEL,AMB,STR) YEL Urine Clarity (CLEAR) CLDY H Urine pH (5.0 - 8.0) 6.0 Ur Specific Dunbar (1.001 - 1.035) 1.025 Urine Protein (NEG,<30 MG/DL) 100 H Urine Ketones (NEG) NEG Urine Nitrite (NEG) NEG Urine Bilirubin (NEG) NEG Urine Urobilinogen (0.1 - 1.0 EU/dl) 1.0 Ur Leukocyte Esterase (NEG) LARGE H Ur Microscopic SEDIMENT EXAMINED Urine RBC (0 - 5 /HPF) 10-15 H Urine WBC (0 - 2 /HPF) > 75 H Ur Epithelial Cells (NONE,FEW) FEW Urine Bacteria (NEG/NONE) PACKD H Urine Mucus (FEW,NONE) FEW Urine Hemoglobin (NEG) LARGE H Urine Glucose (N MG/DL) NEG Imaging/Other Studies: Abdomen/pelvis CT 02/10/2017: 1. Redemonstrated large mass in the lower abdomen/pelvis which appears mildly increased in size from 01/02/2017. Foci of gas are again seen within the mass, overall increased from prior. No definite intra-abdominal free air is seen. 2. Peripherally enhancing low-density structure in the left abdomen measuring approximately 3.8 cm; it is uncertain if this reflects a mass/fluid collection or focally dilated segment of small bowel. 3. Partially visualized pleural effusions with partial atelectasis of the lower lobes. 4. Nonspecific bilateral adrenal nodules, which may be further assessed with adrenal protocol CT. 5. Few nonspecific ill-defined low-density hepatic lesions, which may be better assessed with MRI. 6. Moderate to large hiatal hernia. Bilateral lower extremity US 02/10/2017: Normal triplex scan without evidence of deep venous thrombosis involving the lower extremities. MRI abd/pelvis 01/19/2017 ([facility]) Lung bases: Bilateral pleural effusions and bibasilar atelectasis are similar. Liver: A 6 mm T2 hyperintense lesion in segment /VII possibly representing a hemangioma is again seen. The hepatic vasculature is patent. Gallbladder and biliary tree: Anterior position of the gallbladder is again seen. There is no intrahepatic biliary dilatation and the common bile duct is normal in caliber. Pancreas: Unremarkable. Spleen: Unremarkable. Adrenal glands: Thickening of the left adrenal gland is similar. Right adrenal is unremarkable. Kidneys: There is new mild bilateral hydronephrosis to the level of the pelvic brim. Abdominal and pelvic lymph nodes: No lymphadenopathy. Pelvis, bladder and bowel: There is a 15.7 x 11.8 x 18.6 cm T2 hyperintense heterogeneously enhancing, necrotic mass in the lower abdomen/pelvis which is invades and is fistulized to the rectum/sigmoid colon posteriorly and also invades the posterior bladder wall anteriorly (image 25 and 24, series 22). Additional tract arising from the right lateral aspect of the mass extends anteriorly and is difficult to delineate where this terminates (image 25, series 13). A Sanchez catheter and air are seen in the bladder which is partially decompressed and displaced anteriorly by the large pelvic mass. Peritoneum: There is a peripherally enhancing fluid collection measuring 4.4 x 4.0 x 7.7 cm inferior to the left kidney which communicates with a smaller 3.2 x 1.8 cm collection in the left paracolic gutter as well as with a more irregular collection anterior to the descending colon (image 56, 39 and 66, series 11). An additional 2.9 x 2.0 cm T2 hyperintense collection is seen adjacent to the cecum and appears to correspond to bowel on prior study (image 10, series 12), less likely an additional fluid collection. There is no bowel obstruction. Soft tissue: Midline surgical incision and associated wound care device are seen anteriorly. Assessment/Plan Assessment: Mr. 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 He is currently on TPN for malnutrition. He is pending surgical oncology evaluation for removal of mass but is limited due to his severely decreased albumin. This has been increasing but is only 2.1. His blood cultures have been negative to date. He remains off antibiotic. He remains afebrile. Cardiology is consulted. His HR remains in the 110s. US of the lower extremity is negative for DVT. Tachycardia may be related to his anemia. He may need transfusion to help with perfusion. He will need to follow up with surgical oncology to discuss resection of mass. Chemotherapy for these low grade neoplasms is not as effective. Recommendations: 1. Follow up with surgical oncology at [facility], Dr. Jr Asher 2. Continue nutritional support with TPN and oral intake 3. Consider transfusion with pRBC with goal hgb >8 (tachycardia, ? continue bleeding) 4. Check iron studies and iron repletion as needed Problem List: 1. Malignant neoplasm of appendix 2. Multifocal atrial tachycardia 3. Supraventricular tachycardia 4. History of pulmonary embolism 5. Malnutrition 6. Iron deficiency anemia Other Findings/Comments: Please call [phone] with any questions or concerns. Consult Acknowledgment - Thank you for your consult request.
--- NOTE | 2017-02-11 13:42 | CT SCAN REPORT ---
EXAMINATION: CT ANGIOGRAM OF THE CHEST WITH AND WITHOUT CONTRAST (CT PULMONARY ANGIOGRAM FOR PE) CLINICAL INFORMATION: Tachypnea in a 61-year-old male patient. Elevated d-dimer. COMPARISON: Portable chest x-ray on 02/10/2017. TECHNIQUE: Prior to contrast administration, noncontrast localization images were obtained. Subsequently, multidetector volumetric imaging was performed from the thoracic inlet to below the diaphragms following the administration of 95 mL Optiray 350 intravenous contrast. No contrast reaction reported. Sagittal, coronal, and MIP oblique sagittal reformatted images were obtained on the CT workstation, uploaded to PACS, and reviewed. Total exam dose-length product 443 mGy-cm. 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 Eventration of the hemidiaphragm is also seen and the heart is enlarged. Compression atelectasis involves lower lobes. Tracheomegaly is present. QUALITY OF STUDY/CONTRAST BOLUS: Excellent PULMONARY ARTERIES: No central or segmental pulmonary emboli. THORACIC AORTA: No aneurysm or dissection. LUNG: As mentioned above, there is bibasilar areas of compression of this is a left due to the effusion and the right due to the effusion plus eventration of the diaphragm. Ill-defined scarring is present in the posterior apical segment of the right upper lobe. Series 202, image 76. Series 3, image 12. PLEURA: Bilateral pleural effusions larger on the left than right. Some fluid entrapped within the right major fissure. MEDIASTINUM: Normal heart size. No significant pericardial effusion. A small fluid-filled pericardial recess is seen posterior to the ascending aorta. No hilar or mediastinal lymphadenopathy. No evidence of septal bowing or right heart strain. CHEST WALL/AXILLA: No axillary or internal mammary lymphadenopathy. OSSEOUS STRUCTURES: A hemangioma is located in the vertebral body at T7. Multiple Schmorl's nodes are present in the thoracic vertebral bodies. There is osteopenia of the thoracic spine and some loss of vertebral height which is felt to be chronic. Deformity involving the body of the sternum may be due to prior trauma. Healed rib fractures are evident the right side. UPPER ABDOMEN: The gallbladder is in an unusual location interposed between the right lobe of the liver and the diaphragm superiorly and laterally. It contains a fluid fluid level with dense material layering out dependently. The latter could represent numerous tiny stones or dense biliary sludge. Also, there is a small amount of pericholecystic fluid that was not readily apparent on previous exams. The upper pole of the left kidney shows hydronephrosis of the collecting system. No reflux of contrast into the hepatic veins to suggest elevated right heart pressures. IMPRESSION: 1. No evidence of pulmonary embolism. 2. Bilateral pleural effusions and partial compression atelectasis of the lower lobes. 3. Eventration of the right hemidiaphragm. 4. Ill-defined scarring apical posterior segment of the right upper lobe. 5. Abnormal gallbladder with abnormal location and internal contents as described. VTE: Negative.
--- NOTE | 2017-02-11 17:22 | PN- Cardiology ---
Subjective Subjective: * Patient reports some mild intermitternt chest discomfort and palpititionss * ventricular ectopy is noted. * H/H is trending down * No evidence of PE of chest CT Objective Vital Signs and I&Os Vital Signs Date Time Temp Pulse Resp B/P B/P Pulse O2 O2 Flow FiO2 Mean Ox Delivery Rate 02/11 08 98.8 113 20 120/70 96 Room Air Room Air 02/10 2300 98.5 108 20 110/60 Intake & Output 02/11 0000 02/10 0802/10 0000 Intake Total 1248.2 996.0 757 195 Output Total 450 400 450 110 350 Balance 798.2 -400 546.0 647 -155 Intake, IV 225 715 732 195 Intake, Lipid 116.8 24.0 Intake, Oral 240 120 25 Intake, 666.4 137 TPN/PPN Number 1 1 1 1 1 Bowel Movements Output, Urine 450 400 450 110 350 Patient 191 lb 191 lb 198 lb Weight Weight Bed scale Estimated Measurement Method Physical Exam: General: WD/ overweight male in NAD; alert and oriented x 3 HEENT: NC/AT, PERRL, EOMI Neck: no JVD Heart: RRR Lungs: clear bilaterally Extremities: 2+ bilateral leg edema R>L Assessment/Plan Assessment/Plan * Continue current dose of Cardizem at 120mg BID. Continue telemetry? Yes
[2017-02-11 18:50] VITALS: BP 132/78
--- NOTE | 2017-02-11 19:30 | NUR ---
1850 - PT ARRIVED TO 1N RM 188. VSS. A&OX3. REPORT TO BE GIVEN TO Pa LEONARD
[2017-02-11 22:44] LABS: ABSOLUTE BASOPHIL COUNT 0 /CUMM (0.0-0.2); ABSOLUTE EOSINOPHIL COUNT 0 /CUMM (0.0-0.7); ABSOLUTE GRANULOCYTE CT 10.6 /CUMM (1.4-6.5); ABSOLUTE LYMPH COUNT 0.9 /CUMM (1.2-3.4); ABSOLUTE MONOCYTE COUNT 0.8 /CUMM (0.10-0.60); BASOPHIL % 0.3 % (0.0-2.0); EOSINOPHIL % 0.4 % (0-5); MEAN CORPUSCULAR HGB 27.9 PG (27.0-31.0); MEAN CORPUSCULAR HGB CONC 32.5 G/DL (33.0-37.0); MEAN CORPUSCULAR VOLUME 86.1 FL (80.0-94.0); MEAN PLATELET VOLUME 9.1 FL (7.4-10.4); PLATELET COUNT 323 /CUMM (130-400); RBC DISTRIBUTION WIDTH 17.5 % (11.5-14.5); RED BLOOD CELL CT 2.91 /CUMM (4.70-6.10); WHITE BLOOD CELL COUNT 12.4 /CUMM (4.8-10.8)
[2017-02-11 23:04] LABS: GRANULOCYTE % 85.4 % (42.2-75.2)
--- NOTE | 2017-02-11 23:15 | Patient Discharge Instructions ---
Discharge Instructions General Discharge Information You were seen/treated for: TACHYCARDIA Special Instructions: -Please follow-up with your primary care provider within 7 days after discharge. -We have made changes to your home medications, please read the instructions carefully. -Please come back to the hospital if your symptoms got worse. Diet Continue normal diet: No Recommended Diet: Heart Healthy Activity Full Activity/No Limits: Yes (as tolerated) Acute Coronary Syndrome Inclusion Criteria At DC or during hospital stay patient has or had the following: ACS DIAGNOSIS No Discharge Core Measures Meds if any: Prescribed or Continued at Discharge Meds if any: NOT Prescribed or Continued at Discharge Congestive Heart Failure Inclusion Criteria At DC or during hospital stay patient has or had the following: CHF DIAGNOSIS No Discharge Core Measures Meds if any: Prescribed or Continued at Discharge Meds if any: NOT Prescribed or Continued at Discharge Cerebrovascular accident Inclusion Criteria At DC or during hospital stay patient has or had the following: CVA/TIA Diagnosis No Discharge Core Measures Meds if any: Prescribed or Continued at Discharge Meds if any: NOT Prescribed or Continued at Discharge Venous thromboembolism Inclusion Criteria VTE Diagnosis No VTE Type NONE VTE Confirmed by (Test) NONE Discharge Core Measures - Per Current guidelines, there needs to be overlap - treatment for the first 5 days of Warfarin therapy. - If discharged on Warfarin prior to 5 days of - overlap therapy, the patient will need to be - assessed for post discharge needs including - *Post discharge parental anticoagulation - *Warfarin and/or parental anticoagulation education - *Follow up date to check INR post discharge At least 5 days overlap therapy as Inpatient No Meds if any: Prescribed or Continued at Discharge Note: Overlap Therapy is Warfarin and Anticoagulant Meds if any: NOT Prescribed or Continued at Discharge
[2017-02-12 00:57] VITALS: BP 128/67
--- NOTE | 2017-02-12 07:10 | PN- Housestaff ---
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 He was not having any active complaints. Review of Systems Constitutional: Reports: no symptoms. Objective Last 24 Hrs of Vital Signs/I&O Vital Signs Date Time Temp Pulse Resp B/P B/P Pulse O2 O2 Flow FiO2 Mean Ox Delivery Rate 02/12 1646 99.8 118 20 142/80 02/12 0824 99.6 116 20 132/72 95 Room Air 02/12 0057 98.2 114 20 128/67 96 02/11 1850 98.7 73 20 132/78 95 Room Air Intake & Output 02/12 1600 02/12 0800 02/12 0000 Intake Total 1383.2 932.2 990.0 Output Total 750 550 550 Balance 633.2 382.2 440.0 Intake, IV 240 20 Intake, Lipid 116.8 246.8 120.0 Intake, Oral 360 20 100 Intake, 666.4 665.4 750 TPN/PPN Number 2 2 Bowel Movements Output, Urine 750 550 550 Physical Exam General Appearance: Alert, Oriented X3, Cooperative, No Acute Distress Cardiovascular: Normal S1, Normal S2 Lungs: Clear to Auscultation, Normal Air Movement Abdomen: distended, tender, old midline incision kyung, bowel sounds positive Neurological: Normal Speech Extremities: bilateral lower extremity pitting edema Current Medications: Current Medications Sig/Ghulam Start time Last Medication Dose Route Stop Time Status Admin Albuterol Sulfate 3 ML Q6H PRN 02/10 0400 AC INH Diltiazem HCl 120 MG BID 02/11 1445 AC 02/12 PO 0943 Fat Emulsion 350 ML 1900 02/12 1900 AC Intravenous IV 02/13 1858 Fat Emulsion 350 ML Q24H 02/12 1700 CAN Intravenous IV 02/13 1658 Fat Emulsion 350 ML 02/11 1900 AC 02/11 Intravenous IV 02/12 185 1957 Fat Emulsion 350 ML 1900 02/10 1900 DC 02/10 Intravenous IV 02/11 1859 1925 Ferrous Sulfate 325 MG DAILY 02/12 1000 AC 02/12 PO 0942 Folic Acid 1 MG DAILY 02/10 1000 AC 02/12 PO 0942 Ibuprofen 600 MG Q6P PRN 02/10 0345 AC PO Levetiracetam 1,000 MG Q12 02/12 2200 AC PO Levetiracetam 1,000 MG Q12 02/10 0500 IN 02/12 PO 0941 Magnesium Sulfate 1 GM Q2H 02/12 1015 IN 02/12 Dextrose/Water 100 ML IV 02/12 1414 1218 Multivitamins 1 TAB DAILY 02/10 1000 AC 02/12 Therapeutic PO 0943 Omeprazole 40 MG DAILY AC 02/10 0700 AC 02/12 PO 0626 Ondansetron HCl 4 MG Q6P PRN 02/10 0400 PO Oxybutynin Chloride 5 MG DAILY 02/10 1000 AC 02/12 PO 0942 Oxycodone HCl 5 MG Q6P PRN 02/10 0345 PO Patient Medication 1 ED .STK-MED ONE 02/12 1431 IN Teaching ED 02/12 1432 Phenytoin 200 MG BID 02/10 0600 02/12 PO 0942 Sertraline HCl 25 MG DAILY 02/10 1000 02/12 PO 0943 Total Parenteral 1 UNIT 1900 02/12 1900 Nutrition IV 02/13 1859 Total Parenteral 1 UNIT 1900 02/11 1900 02/11 Nutrition IV 02/12 185 1957 Total Parenteral 1 UNIT ONE 02/10 1900 IN 02/10 Nutrition IV 02/11 185 1926 Trazodone HCl 50 MG AT BEDTIME 02/10 2200 02/11 PO 2159 Last 24 Hrs of Lab/Yuri Results Last 24 Hrs of Labs/Mics: Laboratory Tests 02/12/17 0518: Anion Gap 10, Estimated GFR > 60, Glucose 105 H, Calcium 7.6 L, Phosphorus 3.4 , Magnesium 1.4 L, Total Bilirubin 0.3, AST 48, ALT 68, Alkaline Phosphatase 229 H, Albumin 2.0 L, CBC w Diff NO MAN DIFF REQ, RBC 2.80 L, MCV 86.9, MCH 28.1, RDW 17.4 H, MPV 9.1, Gran % 82.2 H, Lymphocytes % 9.1 L, Monocytes % 8.3, Eosinophils % 0.2, Basophils % 0.2, Absolute Granulocytes 8.3 H, Absolute Lymphocytes 0.9 L, Absolute Monocytes 0.8 H, Absolute Eosinophils 0, Absolute Basophils 0, PUBS MCHC 32.3 L 02/11/17 2140: Anion Gap 7, Estimated GFR > 60, Glucose 109 H, Calcium 7.8 L, Phosphorus 3.4, Magnesium 1.4 L, Total Bilirubin 0.3, AST 52, ALT 74 H, Albumin 2.0 L, CBC w Diff NO MAN DIFF REQ, RBC 2.91 L, MCV 86.1, MCH 27.9, RDW 17.5 H, MPV 9.1, Gran % 85.4 H, Lymphocytes % 7.2 L, Monocytes % 6.7, Eosinophils % 0.4, Basophils % 0.3, Absolute Granulocytes 10.6 H, Absolute Lymphocytes 0.9 L, Absolute Monocytes 0.8 H, Absolute Eosinophils 0, Absolute Basophils 0, PUBS MCHC 32.5 L Lines/Diet/Fluids Lines: peripheral lines Central Line Type/Location: PICC (right) Assessment/Plan Assessment: 61-year-old male with complicated past medical history significant for abdominal tumor unable for resection with a right hemicolectomy was transferred to [facility] for further management, further detail can be found in the patient chart. patient has chronic Sanchez catheter and on TPN was sent from [facility] for persistent tachycardia patient's heart rate in 120s to 130s. Had a history of SVT. Currently tachycardia can be reactive but the underlying processes, should rule out infection, ACS, intra-abdominal pathology. Patient was admitted, Dr. Aragon data modeler was consulted, infection was ruled out, ACS was ruled out, and pulmonary embolism was ruled out Plan - Discharge tomorrow to rehabilitation center, patient will go with the TPN. #Tachycardia * Pulmonary embolism was ruled out with CTA * Continue oral Cardizem * Continue telemetry monitoring #Intra-abdominal tumor pseudomyxoma peritonei * Patient has appointment with [place] oncologists on 02/25/17 * Patient was sent to the halfway until his albumin improved to about 3 * We will advise patient to follow up with surgical oncologist at [place], Dr. Jr Asher #Chronic iron deficiency anemia with hemoglobin trending down * We transfused another unit of blood today * Patient last iron study was done on December 25 shows iron deficiency anemia * We will continue iron supplements * We'll check CBC tomorrow morning #Currently on TPN * We will continue TPN and regular diet to improve his nutrition. 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 Sinus tachycardia Pain Ratin Pain Location: Abdomen Pain Goal: Remain pain free Pain Plan: Avoid NSAIDs Tomorrow's Labs & Rationales: CBC,BEP f/u anemia and hypokalemia DVT/Prophylaxis: mechanical, pharmacological
[2017-02-12 08:06] LABS: ABSOLUTE BASOPHIL COUNT 0 /CUMM (0.0-0.2); ABSOLUTE EOSINOPHIL COUNT 0 /CUMM (0.0-0.7); ABSOLUTE GRANULOCYTE CT 8.3 /CUMM (1.4-6.5); ABSOLUTE LYMPH COUNT 0.9 /CUMM (1.2-3.4); ABSOLUTE MONOCYTE COUNT 0.8 /CUMM (0.10-0.60); BASOPHIL % 0.2 % (0.0-2.0); EOSINOPHIL % 0.2 % (0-5); GRANULOCYTE % 82.2 % (42.2-75.2); HEMATOCRIT 24.3 % (42-52); MEAN CORPUSCULAR HGB 28.1 PG (27.0-31.0); MEAN CORPUSCULAR HGB CONC 32.3 G/DL (33.0-37.0); MEAN CORPUSCULAR VOLUME 86.9 FL (80.0-94.0); MEAN PLATELET VOLUME 9.1 FL (7.4-10.4); PLATELET COUNT 312 /CUMM (130-400); RBC DISTRIBUTION WIDTH 17.4 % (11.5-14.5); WHITE BLOOD CELL COUNT 10.1 /CUMM (4.8-10.8)
[2017-02-12 08:24] VITALS: BP 132/72
--- NOTE | 2017-02-12 08:43 | PN- Oncology ---
Subjective Subjective: He reports chest pain and back pain this morning. Pain started after his CT scan yesterday. He has no fever or chills. He has no nausea or vomiting. He does have abdominal pain. His leg swelling is about the same. He did get blood transfusion yesterday. Review of Systems: Constitutional: Denies: chills, fever. Cardiovascular: Reports: chest pain. Respiratory: Denies: short of breath. GI: Reports: abdominal pain Musculoskeletal: Reports: back pain, joint pain, joint swelling. Neurological/Psychological: Reports: emotional problems. Hematologic/Endocrine: Reports: bruising, bleeding. All Other Systems: Reviewed and Negative Objective Vital Signs and I&Os Vital Signs Date Time Temp Pulse Resp B/P B/P Pulse O2 O2 Flow FiO2 Mean Ox Delivery Rate 02/12 0057 98.2 114 20 128/67 96 02/11 1850 98.7 73 20 132/78 95 Room Air Intake & Output 02/12 1600 02/12 0800 02/12 0000 02/11 1600 02/11 0800 02/11 0000 Intake Total 932.2 990.0 1248.2 996.0 Output Total 550 550 450 400 450 Balance 382.2 440.0 798.2 -400 546.0 Intake, IV 20 225 715 Intake, Lipid 246.8 120.0 116.8 24.0 Intake, Oral 20 100 240 120 Intake, 665.4 750 666.4 137 TPN/PPN Number 2 1 1 1 Bowel Movements Output, Urine 550 550 450 400 450 Physical Exam: General Appearance: no apparent distress, alert, awake, comfortable, thin Eyes: Bilateral: PERRL. Ears, Nose, Throat: moist mucus membranes Respiratory: chest non-tender, no respiratory distress, quiet respiration Cardiovascular: tachycardia Gastrointestinal: normal bowel sounds, patient refused further examinations Extremities: 3+ BLE edema Neurologic/Psych: awake, alert, oriented x 3 Current Medications: Current Medications Sig/Ghulam Start time Last Medication Dose Route Stop Time Status Admin Albuterol Sulfate 3 ML Q6H PRN 02/10 0400 AC INH Diltiazem HCl 120 MG BID 02/11 1445 AC 02/11 PO 2159 Diltiazem HCl 125 MG Q12H 02/10 0045 DC 02/11 Sodium Chloride 100 ML IV 1129 Enoxaparin Sodium 100 MG Q12H 02/10 1000 DC 02/11 SC 0937 Fat Emulsion 350 ML 1900 02/11 1900 AC 02/11 Intravenous IV 02/12 Fat Emulsion 350 ML 02/10 1900 DC 02/10 Intravenous IV 02/11 Ferrous Sulfate 325 MG DAILY 02/12 1000 AC PO Folic Acid 1 MG DAILY 02/10 1000 AC 02/11 PO 0936 Ibuprofen 600 MG Q6P PRN 02/10 0345 AC PO Levetiracetam 1,000 MG Q12 02/10 0500 AC 02/11 PO 2159 Multivitamins 1 TAB DAILY 02/10 1000 AC 02/11 Therapeutic PO 0936 Omeprazole 40 MG DAILY AC 02/10 0700 AC 02/12 PO 0626 Ondansetron HCl 4 MG Q6P PRN 02/10 0400 AC PO Oxybutynin Chloride 5 MG DAILY 02/10 1000 AC 02/11 PO 0936 Oxycodone HCl 5 MG Q6P PRN 02/10 0345 AC PO Phenytoin 200 MG BID 02/10 0600 AC 02/11 PO 2159 Sertraline HCl 25 MG DAILY 02/10 1000 AC 02/11 PO 0936 Total Parenteral 1 UNIT 02/11 190 AC 02/11 Nutrition IV 02/12 Total Parenteral 1 UNIT ONE 02/10 190 GA 02/10 Nutrition IV 02/11 Trazodone HCl 50 MG AT BEDTIME 02/10 2200 AC 02/11 PO 215 Results Last 24 Hours of Lab Results: Laboratory Tests 02/12 02/11 0518 2140 Chemistry Sodium (137 - 145 mmol/L) 140 138 Potassium (3.5 - 5.1 mmol/L) 3.4 L 3.6 Chloride (98 - 107 mmol/L) 103 103 Carbon Dioxide (22 - 30 mmol/L) 26 28 Anion Gap (5 - 16) 10 7 BUN (9 - 20 mg/dL) 27 H 28 H Creatinine (0.7 - 1.2 mg/dL) 0.7 0.7 Estimated GFR (>60 ml/min) > 60 > 60 Glucose (65 - 99 mg/dL) 105 H 109 H Calcium (8.4 - 10.2 mg/dL) 7.6 L 7.8 L Phosphorus (2.5 - 4.5 mg/dL) 3.4 3.4 Magnesium (1.6 - 2.3 mg/dL) 1.4 L 1.4 L Total Bilirubin (0.2 - 1.3 mg/dL) 0.3 0.3 AST (17 - 59 U/L) 48 52 ALT (21 - 72 U/L) 68 74 H Albumin (3.5 - 5.0 g/dL) 2.0 L 2.0 L Hematology CBC w Diff Pending NO MAN DIFF REQ WBC (4.8 - 10.8 /CUMM) Pending 12.4 H RBC (4.70 - 6.10 /CUMM) Pending 2.91 L Hgb (14.0 - 18.0 G/DL) Pending 8.1 L Hct (42 - 52 %) Pending 25.0 L MCV (80.0 - 94.0 FL) Pending 86.1 MCH (27.0 - 31.0 PG) Pending 27.9 RDW (11.5 - 14.5 %) Pending 17.5 H Plt Count (130 - 400 /CUMM) Pending 323 MPV (7.4 - 10.4 FL) Pending 9.1 Gran % (42.2 - 75.2 %) 85.4 H Lymphocytes % (20.5 - 51.1 %) 7.2 L Monocytes % (1.7 - 9.3 %) 6.7 Eosinophils % (0 - 5 %) 0.4 Basophils % (0.0 - 2.0 %) 0.3 Absolute Granulocytes (1.4 - 6.5 /CUMM) 10.6 H Absolute Lymphocytes (1.2 - 3.4 /CUMM) 0.9 L Absolute Monocytes (0.10 - 0.60 /CUMM) 0.8 H Absolute Eosinophils (0.0 - 0.7 /CUMM) 0 Absolute Basophils (0.0 - 0.2 /CUMM) 0 PUBS MCHC (33.0 - 37.0 G/DL) Pending 32.5 L Recent Imaging Studies: Chest CTA 02/11/2017: 1. No evidence of pulmonary embolism. 2. Bilateral pleural effusions and partial compression atelectasis of the lower lobes. 3. Eventration of the right hemidiaphragm. 4. Ill-defined scarring apical posterior segment of the right upper lobe. 5. Abnormal gallbladder with abnormal location and internal contents as described. VTE: Negative. Assessment/Plan Assessment/Recommendations: Mr. Carrion is a 61-year-old male with history of PE on enoxaparin, seizure disorder on Keppra, BPH, and recently diagnosed mucinous epithelial neoplasm consistent with pseudomyxoma peritonei status post right hemicolectomy with re- anastomosis without removal of primary mass who presented from [facility] for tachycardia. He is currently on TPN for malnutrition. He is pending surgical oncology evaluation for removal of mass but is limited due to his severely decreased albumin. This has been increasing but is only 2.1. His blood cultures have been negative to date. He remains off antibiotic. He remains afebrile. CTA of the chest did not demonstrate any evidence of PE. He has improved symptomatically with transfusion. He continues to have abdominal pain. He is tolerating TPN. Tachycardia is persistent but slightly improved. He is being transitioned to oral Cardizem. For his abdominal mass, pathology was a low grade mucinous epithelial neoplasm. Chemotherapy would likely not be as responsive. He is also deconditioned and unlikely to tolerate therapy at the moment. He will need to follow up with surgical oncology as scheduled on 02/25/2017 at 10:15AM. Recommendations: 1. Follow up with surgical oncology at [facility], Dr. Jr Asher as scheduled 2. Continue nutritional support with TPN and oral intake 3. Continue iron supplementation 4. Follow up 1-2 weeks after discharge Please call [phone] with any questions or concerns. Problem List: 1. Low grade mucinous neoplasm of appendix 2. JUAN (acute kidney injury) 3. Sinus tachycardia 4. History of pulmonary embolism
--- NOTE | 2017-02-12 08:52 | Discharge Summary ---
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 Patient was recently discharged from [facility] with chief complaint of abdominal mass and is scheduledis coming up with to see Dr. Asher within 2 weeks for possible tumor resection. Patient does not have any complaints, denies chest pain, palpitations, shortness of breath, dizziness, loss of consciousness. He has chronic abdominal pain and distention. His chronic Sanchez placed, currently on TPN. According to W 10 there is also mention about blood in stools which patient is unaware of. Given patient's mild cognitive impairment he is a poor historian. Vitals: T max 99.6, HR 120s to 130s, RR 20, blood pressure 110/67, saturating well on room air On examination: A O 3, cooperative, no acute distress, neck supple, JVD normal, no lymphadenopathy, mucosa dry, no focal neurological deficit, bilateral pedal edema, no obvious skin rashes or inflammation CVS: S1-S2, RRR, tachycardia. RS: Clear to auscultate bilaterally. Abdomen: Soft, NT, mildly distention, surgical scar, bowel sounds present. Sanchez catheter Labs: WBC 12.6, neutrophils 80% hemoglobin 8.6, hematocrit 26.4, platelets 326, BUN 28 otherwise BMP unremarkable, calcium 8.0, AST 74, ALT 82, alkaline phosphatase 352, albumin 2.1 UA positive for 100 proteins, large leukocyte esterase trace, more than 75 WBC and packed with bacteria X-ray abdomen: No definite acute findings. Moderate to large volume of stool. CT abdomen and pelvis with IV contrast: 1. Redemonstrated large mass in the lower abdomen/pelvis which appears mildly increased in size from 01/02/2017. Foci of gas are again seen within the mass, overall increased from prior. No definite intra-abdominal free air is seen. 2. Peripherally enhancing low-density structure in the left abdomen measuring approximately 3.8 cm; it is uncertain if this reflects a mass/fluid collection or focally dilated segment of small bowel. 3. Partially visualized pleural effusions with partial atelectasis of the lower lobes. 4. Nonspecific bilateral adrenal nodules, which may be further assessed with adrenal protocol CT. 5. Few nonspecific ill-defined low-density hepatic lesions, which may be better assessed with MRI. 6. Moderate to large hiatal hernia. EKG: ? MAT Vs sinus tachy He was admitted to ICU low as telemetry were then treated for these medical conditions 1.Paroxysmal SVT and multifocal atrial tachycardia: Patient initially was put on IV Cardizem. Doppler ultrasound of the lower extremity ruled out DVT CTA was negative for PE. IV Cardizem was changed to by mouth Cardizem per cardiology recommendation. Patient remained consistently tachycardia had runs of SVT was started on metoprolol 50 mg twice a day for better heart rate control. 2. Intra-abdominal tumor pseudomyxoma peritonei: Patient had a history of intra-abdominal tumor pseudomyxoma peritonei , has been worked up at [facility]. Our oncologist team had also seen the patient during this hospitalization.Patient was advised to follow-up with Dr. Asher at [facility] for management of his abdominal tumor. 3. Escherichia coli (vancomycin-resistant) positive urine cultures-probably colonization: Urine cultures were positive for Escherichia coli resistant to vancomycin. Patient was elevated by Paul Kulkarni MD as he was hemodynamically stable and afebrile without any white count it was recommended to wash the patient off antibiotics. 4. Acute on chronic anemia: H&H dropped to 7.2 , received 2 units of packed RBC in the hospital .Afterwards H&H remains stable without any evidence of active signs of bleed. 5. Currently on TPN: TPN was continued during the hospitalization 6.Significant transaminitis with elevated alkaline phosphatase: LFTs were elevated during this hospitalization. CT chest showed revealed some abnormalities in gallbladder(unusual location interposed between the right lobe of the liver and the diaphragm superiorly and laterally, contained fluid level with dense material layering out dependently), that was not noted on his previous CT of the abdomen and pelvis or his right upper quadrant ultrasound but , in view of his elevated enzymes it was recommended to get further evaluation( MRCP/MRI of the abdomen) but patient refused. LFTs normalized during the hospitalization. 7. History of pulmonary embolism: Lovenox was discontinued on admission to rule out active bleeding, was resumed afterwards. DVT prophylaxis: Lovenox CODE STATUS - DNR/DNI Allergies: Coded Allergies: NO KNOWN ALLERGIES (01/11/14) Pertinent Lab Results: PATIENT: JUANY GONZALEZ PRESENT AGE: 61 PATIENT ACCOUNT NO: [id number] : 54 LOCATION: [facility] ORDERING PHYSICIAN: TIFFANIE RODRIGUEZ MD SERVICE DATE: 02/11/17 EXAM TYPE: CAT - CTA CHEST-PULMONARY EMBOLISM EXAMINATION: CT ANGIOGRAM OF THE CHEST WITH AND WITHOUT CONTRAST (CT PULMONARY ANGIOGRAM FOR PE) CLINICAL INFORMATION: Tachypnea in a 61-year-old male patient. Elevated d-dimer. COMPARISON: Portable chest x-ray on 02/10/2017. TECHNIQUE: Prior to contrast administration, noncontrast localization images were obtained. Subsequently, multidetector volumetric imaging was performed from the thoracic inlet to below the diaphragms following the administration of 95 mL Optiray 350 intravenous contrast. No contrast reaction reported. Sagittal, coronal, and MIP oblique sagittal reformatted images were obtained on the CT workstation, uploaded to PACS, and reviewed. Total exam dose-length product 443 mGy-cm. FINDINGS: BOARDER HAND: There bilateral pleural effusions larger on the left than right. Eventration of the hemidiaphragm is also seen and the heart is enlarged. Compression atelectasis involves lower lobes. Tracheomegaly is present. QUALITY OF STUDY/CONTRAST BOLUS: Excellent PULMONARY ARTERIES: No central or segmental pulmonary emboli. THORACIC AORTA: No aneurysm or dissection. LUNG: As mentioned above, there is bibasilar areas of compression of this is a left due to the effusion and the right due to the effusion plus eventration of the diaphragm. Ill-defined scarring is present in the posterior apical segment of the right upper lobe. Series 202, image 76. Series 3, image 12. PLEURA: Bilateral pleural effusions larger on the left than right. Some fluid entrapped within the right major fissure. MEDIASTINUM: Normal heart size. No significant pericardial effusion. A small fluid-filled pericardial recess is seen posterior to the ascending aorta. No hilar or mediastinal lymphadenopathy. No evidence of septal bowing or right heart strain. CHEST WALL/AXILLA: No axillary or internal mammary lymphadenopathy. OSSEOUS STRUCTURES: A hemangioma is located in the vertebral body at T7. Multiple Schmorl's nodes are present in the thoracic vertebral bodies. There is osteopenia of the thoracic spine and some loss of vertebral height which is felt to be chronic. Deformity involving the body of the sternum may be due to prior trauma. Healed rib fractures are evident the right side. UPPER ABDOMEN: The gallbladder is in an unusual location interposed between the right lobe of the liver and the diaphragm superiorly and laterally. It contains a fluid fluid level with dense material layering out dependently. The latter could represent numerous tiny stones or dense biliary sludge. Also, there is a small amount of pericholecystic fluid that was not readily apparent on previous exams. The upper pole of the left kidney shows hydronephrosis of the collecting system. No reflux of contrast into the hepatic veins to suggest elevated right heart pressures. IMPRESSION: 1. No evidence of pulmonary embolism. 2. Bilateral pleural effusions and partial compression atelectasis of the lower lobes. 3. Eventration of the right hemidiaphragm. 4. Ill-defined scarring apical posterior segment of the right upper lobe. 5. Abnormal gallbladder with abnormal location and internal contents as described. VTE: Negative. DICTATED BY: JOCELYNN MARIN MD DATE/TIME DICTATED:02/11/171314 MARKETING INFORMATION ANALYST:KAILASH DATE/TIME TRANSCRIBED:02/11/171314 CONFIDENTIAL, DO NOT COPY WITHOUT APPROPRIATE AUTHORIZATION. <Electronically signed in Other Vendor System> SIGNED BY: JOCELYNN MARIN MD [id number] PATIENT: JUANY GONZALEZ PRESENT AGE: 61 PATIENT ACCOUNT NO: [id number] : 54 LOCATION: [facility] ORDERING PHYSICIAN: TIFFANIE RODRIGUEZ MD SERVICE DATE: 02/10/17 EXAM TYPE: US - US-EXT BILAT VENOUS DOPPLER EXAMINATION: US TRIPLEX OF LOWER EXTREMITIES, BILATERAL CLINICAL INFORMATION: Edema. COMPARISON: None TECHNIQUE: Color-flow triplex imaging with spectral analysis and compression Doppler were performed on the lower extremities. FINDINGS: Respiratory variation, normal compression and augmented flow are noted throughout the lower extremities. The visualized common femoral vein, superficial femoral vein, profunda femoral vein, popliteal vein and midcalf peroneal and posterior tibial venous segments show no evidence of deep venous thrombosis. In the right knee there is a popliteal fossa cysts measuring 3 x 0.4 x 1 cm. IMPRESSION: Normal triplex scan without evidence of deep venous thrombosis involving the lower extremities. DICTATED BY: WICHO JAMESON MD DATE/TIME DICTATED:02/10/172057 MARKETING INFORMATION ANALYST:KAILASH DATE/TIME TRANSCRIBED:02/10/172057 CONFIDENTIAL, DO NOT COPY WITHOUT APPROPRIATE AUTHORIZATION. <Electronically signed in Other Vendor System> SIGNED BY: WICHO JAMESON MD 02/10/172104 PATIENT: JUANY GONZALEZ PRESENT AGE: 61 PATIENT ACCOUNT NO: [id number] : 54 LOCATION: [facility] ORDERING PHYSICIAN: MADALYN MONTERO MD SERVICE DATE: 02/10/17 EXAM TYPE: US - US-LIMITED ABDOMEN EXAMINATION: US ABDOMEN LIMITED CLINICAL INFORMATION: Unexplained transaminitis.. COMPARISON: CT scan of the abdomen and pelvis earlier 02/10/2017. TECHNIQUE: Real-time imaging of the right upper quadrant abdominal viscera. Imaging is significantly suboptimal 22 extensive bowel gas and a large mass. FINDINGS: PANCREAS: Not visualized. LIVER: The liver is poorly demonstrated. Grossly, no abnormalities. GALLBLADDER: The gallbladder is not visualized. COMMON BILE DUCT: The common bile duct was not demonstrated. RIGHT KIDNEY: The patient was unable to turn decubitus, and the right kidney was not visualized. IMPRESSION: 1. Significantly suboptimal study due to bowel gas and mass in the abdomen. DICTATED BY: CONI CARVALHO MD DATE/TIME DICTATED:02/10/171302 MARKETING INFORMATION ANALYST:KAILASH DATE/TIME TRANSCRIBED:02/10/171302 CONFIDENTIAL, DO NOT COPY WITHOUT APPROPRIATE AUTHORIZATION. <Electronically signed in Other Vendor System> SIGNED BY: CONI CARVALHO MD 02/10/17 1310 PATIENT: JUANY GONZALEZ PRESENT AGE: 61 PATIENT ACCOUNT NO: [id number] : 54 LOCATION: [facility] ORDERING PHYSICIAN: RONEN GONZALES MD SERVICE DATE: 02/10/176 EXAM TYPE: CAT - CT ABD & PELVIS W IV CONTRAST EXAMINATION: CT ABDOMEN AND PELVIS WITH CONTRAST CLINICAL INFORMATION: Question of free air, recent abdominal surgery COMPARISON: 01/02/2017 TECHNIQUE: Multidetector volumetric imaging was performed of the abdomen and pelvis before and after the IV administration of 95 mL of Optiray 320 intravenous contrast. Sagittal and coronal reformatted images were obtained on the technologist's workstation. DLP: 475.7 cm in mGy-cm FINDINGS: LUNG BASES: There are partially visualized small to moderate bilateral pleural effusions with partial atelectasis of the lower lobes. LIVER, GALLBLADDER, AND BILIARY TREE: The liver is normal in size, shape, and attenuation. There are a few small ill-defined hypoattenuating lesions in the liver, not fully characterized on this exam. No biliary ductal dilatation is present. The gallbladder is grossly unremarkable. PANCREAS: Unremarkable. SPLEEN: Unremarkable. ADRENAL GLANDS: Bilateral adrenal nodules are noted, of nonspecific attenuation. KIDNEYS AND URETERS: Bilateral nephrograms are symmetric. There is mild left hydronephrosis. No obstructing calculi are seen. BLADDER: Decompressed with a Sanchez catheter. GASTROINTESTINAL TRACT: There is a moderate to large hiatal hernia. No definite evidence of bowel obstruction. A suture line is noted in the right lower quadrant. There is moderate stool in the colon. Presacral stranding is noted. No free air is seen. There is a peripherally enhancing low-density structure in the left abdomen on image 53/103 measuring 3.8 cm in diameter; it is uncertain if this reflects a mass/fluid collection or a focally dilated segment of small bowel. ABDOMINAL WALL: Small focus of gas is noted in the subcutaneous tissue of the mid to lower anterior abdominal wall. LYMPH NODES: No definite lymphadenopathy. VASCULAR: Unremarkable. PELVIC VISCERA: There is a redemonstrated large heterogeneous mass in the lower abdomen/pelvis. This measures approximately 16.6 x 14.7 cm in axial plane and 19.1 cm in craniocaudal dimension (previously 15.3 x 15.1 x 15.2 cm when measured in similar fashion on 01/02/2017). Regions of gas are again seen within the mass, overall increased compared to prior. OSSEOUS STRUCTURES: Healed right rib fractures are noted. There is partial loss of height of L4, similar to prior. IMPRESSION: 1. Redemonstrated large mass in the lower abdomen/pelvis which appears mildly increased in size from 01/02/2017. Foci of gas are again seen within the mass, overall increased from prior. No definite intra-abdominal free air is seen. 2. Peripherally enhancing low-density structure in the left abdomen measuring approximately 3.8 cm; it is uncertain if this reflects a mass/fluid collection or focally dilated segment of small bowel. 3. Partially visualized pleural effusions with partial atelectasis of the lower lobes. 4. Nonspecific bilateral adrenal nodules, which may be further assessed with adrenal protocol CT. 5. Few nonspecific ill-defined low-density hepatic lesions, which may be better assessed with MRI. 6. Moderate to large hiatal hernia. DICTATED BY: SHALOM LANG MD DATE/TIME DICTATED:02/10/17418 MARKETING INFORMATION ANALYST:KAILASH DATE/TIME TRANSCRIBED:02/10/17418 CONFIDENTIAL, DO NOT COPY WITHOUT APPROPRIATE AUTHORIZATION. <Electronically signed in Other Vendor System> SIGNED BY: SHALOM LANG MD 02/10/17 044 PATIENT: JUANY GONZALEZ PRESENT AGE: 61 PATIENT ACCOUNT NO: [id number] : 54 LOCATION: [facility] ORDERING PHYSICIAN: MADALYN MONTERO MD SERVICE DATE: 02/10/17 EXAM TYPE: RAD - XRY-PORTABLE ABDOMEN EXAMINATION: XR PORTABLE ABDOMEN CLINICAL INFORMATION: Follow-up, recent abdominal surgery COMPARISON: 01/02/2017 TECHNIQUE: AP view of the abdomen. FINDINGS: No definite free air is seen, though assessment is limited due to positioning. There is a moderate to large amount of stool within the colon. No specific findings of bowel obstruction. No suspicious calcifications are seen. There is haziness at the bilateral lung bases which may reflect a combination of pleural effusion and airspace opacification. No acute osseous findings are seen. IMPRESSION: No definite acute findings. Moderate to large volume of stool. DICTATED BY: SHALOM LANG MD DATE/TIME DICTATED:02/10/17414 MARKETING INFORMATION ANALYST:KAILASH DATE/TIME TRANSCRIBED:02/10/17414 CONFIDENTIAL, DO NOT COPY WITHOUT APPROPRIATE AUTHORIZATION. <Electronically signed in Other Vendor System> SIGNED BY: SHALOM LANG MD 02/10/17 0422 PATIENT: JUANY GONZALEZ PRESENT AGE: 61 PATIENT ACCOUNT NO: [id number] : 54 LOCATION: [facility] ORDERING PHYSICIAN: JEAN PIERRE ARAYA MD SERVICE DATE: 02/10/17- EXAM TYPE: RAD - XRY-PORTABLE CHEST XRAY EXAMINATION: XR PORTABLE CHEST CLINICAL INFORMATION: Confirm central line location. COMPARISON: Chest x-ray and CT scan of the abdomen and pelvis obtained earlier 02/10/2017. TECHNIQUE: Portable AP upright view of the chest was obtained. FINDINGS: The lungs are hyperexpanded bilaterally. There is a right-sided PICC line, with the tip in the region of the cavoatrial junction. There are no pneumothoraces. There are left greater than right pleural effusions. Due to technique and poor inspiration comment the cardiac silhouette is difficult to assess. No definite focal consolidation is demonstrated. There are no acute osseous findings. IMPRESSION: 1. The lungs are hypoexpanded bilaterally. There are left greater than right pleural effusions. 2. There is a right-sided PICC line with the tip at the cavoatrial junction. There is no pneumothorax. DICTATED BY: CONI CARVALHO MD DATE/TIME DICTATED:02/10/171131 MARKETING INFORMATION ANALYST:KAILASH DATE/TIME TRANSCRIBED:02/10/171131 CONFIDENTIAL, DO NOT COPY WITHOUT APPROPRIATE AUTHORIZATION. <Electronically signed in Other Vendor System> SIGNED BY: CONI CARVALHO MD 02/10/17 1139 Disposition Summary Disposition Principal Diagnosis: 1.Paroxysmal SVT and multifocal atrial tachycardia: Additional Diagnosis: abdominal mass ( pseudo-myxoma peritonei) Escherichia coli (vancomycin-resistant) positive urine cultures-probably colonization on TPN history of PE depression right hemicolectomy Discharge Disposition: SNF Discharge Instructions General Discharge Information Code Status: Do Not Resucitate Patient's Diet: heart healthy Patient's Activity: as tolerated Follow-Up Instructions/Appts: 59-year-old man with past medical history of 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 Patient was recently discharged from [facility] with chief complaint of abdominal mass and is scheduled to see Dr. Asher within 2 weeks for possible tumor resection. Patient does not have any complaints, denies chest pain, palpitations, shortness of breath, dizziness, loss of consciousness. He has chronic abdominal pain and distention. His chronic Sanchez placed, currently on TPN. According to W 10 there is also mention about blood in stools which patient is unaware of. Given patient's mild cognitive impairment he is a poor historian. Vitals: T max 99.6, HR 120s to 130s, RR 20, blood pressure 110/67, saturating well on room air On examination: A O 3, cooperative, no acute distress, neck supple, JVD normal, no lymphadenopathy, mucosa dry, no focal neurological deficit, bilateral pedal edema, no obvious skin rashes or inflammation CVS: S1-S2, RRR, tachycardia. RS: Clear to auscultate bilaterally. Abdomen: Soft, NT, mildly distention, surgical scar, bowel sounds present. Sanchez catheter Labs: WBC 12.6, neutrophils 80% hemoglobin 8.6, hematocrit 26.4, platelets 326, BUN 28 otherwise BMP unremarkable, calcium 8.0, AST 74, ALT 82, alkaline phosphatase 352, albumin 2.1 UA positive for 100 proteins, large leukocyte esterase trace, more than 75 WBC and packed with bacteria X-ray abdomen: No definite acute findings. Moderate to large volume of stool. CT abdomen and pelvis with IV contrast: 1. Redemonstrated large mass in the lower abdomen/pelvis which appears mildly increased in size from 01/02/2017. Foci of gas are again seen within the mass, overall increased from prior. No definite intra-abdominal free air is seen. 2. Peripherally enhancing low-density structure in the left abdomen measuring approximately 3.8 cm; it is uncertain if this reflects a mass/fluid collection or focally dilated segment of small bowel. 3. Partially visualized pleural effusions with partial atelectasis of the lower lobes. 4. Nonspecific bilateral adrenal nodules, which may be further assessed with adrenal protocol CT. 5. Few nonspecific ill-defined low-density hepatic lesions, which may be better assessed with MRI. 6. Moderate to large hiatal hernia. EKG: ? MAT Vs sinus tachy He was admitted to ICU low as telemetry were then treated for these medical conditions + Tachycardia Patient initially was put on IV Cardizem. Before meals is was ruled out. PE was ruled out with negative CTA. IV Cardizem was changed to by mouth Cardizem per cardiology recommendation. Patient also received 1 unit of blood. Patient was finally discharged with oral Cardizem. + Intra-abdominal tumor pseudomyxoma peritonei Patient should follow-up with Dr. Asher at [facility] for management of his abdominal tumor. Our oncologist team has also seen the patient during the hospitalization. + Chronic Sanchez Urine cultures showed growth of negative rods and gram-positive cocci. Per ID consultation be watched of the patient off on antibiotics no fevers and elevated WBC were seen. + Chronic iron deficiency anemia with hemoglobin trending down Patient hemoglobin trended down to 7.2 and rest of 1 unit of PRBC. Hemoglobin remained stable upon discharge. + Currently on TPN TPN was continued during the hospitalization + Significant transaminitis with elevated alkaline phosphatase + History of PE Medications at Discharge Discharge Medications: Stop taking the following medications: Diltiazem HCl (Diltiazem 12HR ER) 60 MG CAP.ER.12H ORAL TWICE DAILY Days = 28 Continue taking these medications: Phenytoin Sodium Extended (Phenytoin Sodium Extended) 100 MG CAPSULE 2 Capsule ORAL TWICE DAILY Qty = 360 Comments: Last Taken: 01/05/17 Time: 10 AM Multivitamin (Daily Multiple Vitamin) 1 EACH TABLET 1 Tablet ORAL DAILY Comments: NOT GIVEN IN HOSPITAL Sertraline HCl (Sertraline HCl) 25 MG TABLET 25 Milligram ORAL DAILY Days = 28 Comments: Last Taken: 01/05/17 Time: 10 AM Omeprazole (Omeprazole) 20 MG CAPSULE.DR 40 Milligram ORAL DAILY BEFORE BREAKFAST Days = 28 Comments: NOT GIVEN IN THE HOSPITAL Enoxaparin Sodium (Lovenox) 100 MG/ML SYRINGE 100 Milligram Inject into fatty tissue Q12H Polyethylene Glycol 3350 (Miralax) 17 GRAM POWD.PACK 1 Packet ORAL DAILY Instructions: dissolve in water Trazodone HCl (Trazodone HCl) 50 MG TABLET 1 Tablet ORAL TAKE AT BEDTIME Oxybutynin Chloride (Oxybutynin Chloride) 5 MG TABLET 1 Tablet ORAL DAILY Folic Acid (Folic Acid) 1 MG TABLET 1 Tablet ORAL DAILY [TPN] As Directed Comments: UNIT VOLUME: 2280ML TPN PROVIDES 116.92 GRAMS OF PROTEIN PER DAY AMINO ACID 15% 6.06% DEXTROSE 70% 16.54% -WATER INTRALIPID 20% 20.00% 350.55 ML ADDITIVES ARE SHOWN PER UNIT SODIUM CHLORIDE 45.00MEQ 23.4% SODIUM ACETATE 120.00MEQ POTASSIUM CHLORIDE 125.00MEQ SODIUM PHOSPHATE 30.00MM CALCIUM GLUCONATE 10.00MEQ MAGNESIUM SULFATE (1 GRAM/2ML VIAL) 40.00MEQ MTE-5 CONC. 1.00ML PATIENT ADDITIVES INFUVITE/10ML (=10ML ADD TO EVERY UNIT, EVERY DAY) INFUSE SOLUTION IV AT RATE OF 95ML/HR FOR 24HRS, DAILY. *ADD 10ML MVI PRIOR TO INFUSING* INFUSE VIA 1.2 MICRON FILTER SET. REFRIGERATE. Acetaminophen (8 Hour) 650 MG TABLET.ER 1 Tablet ORAL Q4H as needed for PAIN/TEMP/> 101 Acetaminophen (Acephen) 650 MG SUPP.RECT 1 SUPPOSITORY RECTALLY Q4H as needed for PAIN/TEMP>101 Magnesium Hydroxide (Milk Of Magnesia) 400 MG/5 ML ORAL.SUSP 30 Milliliters ORAL DAILY as needed for CONSTIPATION Bisacodyl (Bisacodyl) 10 MG SUPP.RECT 1 Suppository RECTAL DAILY as needed for CONSTIPATION Na Phos,M-B/Na Phos,Di-Ba (Fleet Enema) 19 GRAM-7 GRAM/118 ML ENEMA 1 Enema RECTAL DAILY as needed for CONSTIPATION Albuterol Sulfate (Albuterol Sulfate) 2.5 MG/3 ML (0.083 %) VIAL.NEB 1 Vial Inhale Solution Q6H as needed for SOB Loperamide HCl (Imodium A-D) 2 MG TABLET 1 Tablet ORAL Q6H as needed for LOOSE STOOL Ondansetron HCl (Ondansetron HCl) 4 MG TABLET 1 Tablet ORAL EVERY SIX HOURS NEEDED as needed for N/V Start taking the following new medications: Magnesium Oxide (Magnesium Oxide) 400 MG TABLET 400 Milligram ORAL TWICE DAILY Qty = 10 No Refills Ferrous Sulfate (Ferrous Sulfate) 325 MG (65 MG IRON) TABLET.DR 1 Tablet ORAL DAILY Qty = 60 No Refills Metoprolol Tartrate (Metoprolol Tartrate) 50 MG TABLET 1 Tablet ORAL TWICE DAILY Qty = 59 No Refills Diltiazem HCl (Diltiazem 12HR ER) 90 MG CAP.ER.12H 180 Milligram ORAL TWICE DAILY Qty = 60 No Refills The following medications have been changed: Old: Levetiracetam (Keppra) 1,000 MG TABLET 1 Tablet ORAL Q12H New: Levetiracetam (Keppra) 1,000 MG TABLET 1 Tablet ORAL Q12H Qty = 60 Copies To: MADDY SOSA,PADILLA; SAMARA SOSA,PAUL Alanis; NICHOLE SOSA PhD,ANN Minaya
--- NOTE | 2017-02-12 10:45 | PN- Infect Dx ---
Subjective Subjective: Afebrile without specific complaints Objective Last 24 Hrs of Vital Signs/I&O Vital Signs Date Time Temp Pulse Resp B/P B/P Pulse O2 O2 Flow FiO2 Mean Ox Delivery Rate 02/12 0824 99.6 116 20 132/72 95 Room Air 02/12 0057 98.2 114 20 128/67 96 02/11 1850 98.7 73 20 132/78 95 Room Air Intake & Output 02/12 1600 02/12 0800 02/12 0000 Intake Total 932.2 990.0 Output Total 550 550 Balance 382.2 440.0 Intake, IV 20 Intake, Lipid 246.8 120.0 Intake, Oral 20 100 Intake, 665.4 750 TPN/PPN Number 2 Bowel Movements Output, Urine 550 550 Physical Exam Other Physical Findings: He appears irritated and will not allow a complete exam Lungs are clear Heart regular rhythm with no murmur Abdomen is distended, tender on palpation over the left upper quadrant and lower abdomen, with no guarding or rebound, positive bowel sounds Extremities 2+ edema both lower extremities; PICC in the right upper extremity with no inflammation at the site Sanchez catheter remains in place Results Last 24 Hours of Lab Results: Laboratory Tests 02/12 02/11 0518 2140 Chemistry Sodium (137 - 145 mmol/L) 140 138 Potassium (3.5 - 5.1 mmol/L) 3.4 L 3.6 Chloride (98 - 107 mmol/L) 103 103 Carbon Dioxide (22 - 30 mmol/L) 26 28 Anion Gap (5 - 16) 10 7 BUN (9 - 20 mg/dL) 27 H 28 H Creatinine (0.7 - 1.2 mg/dL) 0.7 0.7 Estimated GFR (>60 ml/min) > 60 > 60 Glucose (65 - 99 mg/dL) 105 H 109 H Calcium (8.4 - 10.2 mg/dL) 7.6 L 7.8 L Phosphorus (2.5 - 4.5 mg/dL) 3.4 3.4 Magnesium (1.6 - 2.3 mg/dL) 1.4 L 1.4 L Total Bilirubin (0.2 - 1.3 mg/dL) 0.3 0.3 AST (17 - 59 U/L) 48 52 ALT (21 - 72 U/L) 68 74 H Alkaline Phosphatase (< 127 U/L) 229 H Albumin (3.5 - 5.0 g/dL) 2.0 L 2.0 L Hematology CBC w Diff NO MAN DIFF REQ NO MAN DIFF REQ WBC (4.8 - 10.8 /CUMM) 10.1 12.4 H RBC (4.70 - 6.10 /CUMM) 2.80 L 2.91 L Hgb (14.0 - 18.0 G/DL) 7.9 L 8.1 L Hct (42 - 52 %) 24.3 L 25.0 L MCV (80.0 - 94.0 FL) 86.9 86.1 MCH (27.0 - 31.0 PG) 28.1 27.9 RDW (11.5 - 14.5 %) 17.4 H 17.5 H Plt Count (130 - 400 /CUMM) 312 323 MPV (7.4 - 10.4 FL) 9.1 9.1 Gran % (42.2 - 75.2 %) 82.2 H 85.4 H Lymphocytes % (20.5 - 51.1 %) 9.1 L 7.2 L Monocytes % (1.7 - 9.3 %) 8.3 6.7 Eosinophils % (0 - 5 %) 0.2 0.4 Basophils % (0.0 - 2.0 %) 0.2 0.3 Absolute Granulocytes (1.4 - 6.5 /CUMM) 8.3 H 10.6 H Absolute Lymphocytes (1.2 - 3.4 /CUMM) 0.9 L 0.9 L Absolute Monocytes (0.10 - 0.60 /CUMM) 0.8 H 0.8 H Absolute Eosinophils (0.0 - 0.7 /CUMM) 0 0 Absolute Basophils (0.0 - 0.2 /CUMM) 0 0 PUBS MCHC (33.0 - 37.0 G/DL) 32.3 L 32.5 L Last 24 Hours of Yuri Results: Blood cultures February 09 negative Blood cultures February 10 negative Recent Imaging Studies: CTA of the chest February 11 reveals bilateral pleural effusions, left greater than right, with compressive atelectasis both lower lobes; gallbladder in an unusual location between the right lobe of the liver and the diaphragm, containing a fluid level with dense material layering out dependently and with a small amount of pericholecystic fluid; hydronephrosis of the left kidney Assessment/Plan Impression: Stable with temperatures and white blood cell count normal off antibiotics with blood cultures negative. The positive urine cultures likely represents colonization secondary to the Sanchez catheter, which remains in place presumably secondary to the concern of the pelvic mass invading the bladder, but options such as intermittent straight catheterization could be considered. His H&H has increased somewhat after a blood transfusion yesterday though the etiology of his anemia remains unclear. The recent CTA of the chest revealed abnormalities related to the gallbladder, which were not noted on his previous CT of the abdomen and pelvis or his right upper quadrant ultrasound but, with his elevated liver enzymes, further evaluation may be warranted, particularly given the finding of a few nonspecific ill-defined low-density hepatic lesions on the recent CT of the abdomen. Suggestion: 1. Further evaluation of his anemia per Medicine and Hematology 2. Consider MRCP/ MRI of the abdomen 3. Consider removal of the Sanchez and initiation of straight cath protocol if needed 4. Follow-up pathology on the pelvic mass biopsy performed at [place] 5. Continue to follow off antibiotics
[2017-02-12 16:46] VITALS: BP 142/80
[2017-02-12] MEDS ORDERED: MAGNESIUM OXID400 M1 PO (18:01)
--- NOTE | 2017-02-12 20:25 | PN- Cardiology ---
Subjective Subjective: * No complaints * sinus tachycardia with less ectopy Objective Vital Signs and I&Os Vital Signs Date Time Temp Pulse Resp B/P B/P Pulse O2 O2 Flow FiO2 Mean Ox Delivery Rate 02/12 1646 99.8 118 20 142/80 02/12 0824 99.6 116 20 132/72 95 Room Air 02/12 0057 98.2 114 20 128/67 96 Intake & Output 02/12 1600 02/12 0800 02/12 0000 02/11 1600 02/11 0800 02/11 0000 Intake Total 1383.2 932.2 990.0 1248.2 996.0 Output Total 750 550 550 450 400 450 Balance 633.2 382.2 440.0 798.2 -400 546.0 Intake, IV 240 20 225 715 Intake, Lipid 116.8 246.8 120.0 116.8 24.0 Intake, Oral 360 20 100 240 120 Intake, 666.4 665.4 750 666.4 137 TPN/PPN Number 2 2 1 1 1 Bowel Movements Output, Urine 750 550 550 450 400 450 Physical Exam: General: WD/ overweight male in NAD; alert and oriented x 3 HEENT: NC/AT, PERRL, EOMI Neck: no JVD Heart: tachycardic and regular Lungs: clear bilaterally Extremities: 2+ bilateral leg edema R>L Assessment/Plan Assessment/Plan * Increase Cardizem to 180mg BID. Continue telemetry? Yes
[2017-02-13 02:32] VITALS: BP 122/66
[2017-02-13 08:08] LABS: ABSOLUTE BASOPHIL COUNT 0 /CUMM (0.0-0.2); ABSOLUTE EOSINOPHIL COUNT 0 /CUMM (0.0-0.7); ABSOLUTE GRANULOCYTE CT 11.8 /CUMM (1.4-6.5); ABSOLUTE MONOCYTE COUNT 0.9 /CUMM (0.10-0.60); BASOPHIL % 0.3 % (0.0-2.0); EOSINOPHIL % 0.1 % (0-5); HEMATOCRIT 28.1 % (42-52); MEAN CORPUSCULAR HGB 28.8 PG (27.0-31.0); MEAN CORPUSCULAR HGB CONC 33.1 G/DL (33.0-37.0); MEAN CORPUSCULAR VOLUME 87.1 FL (80.0-94.0); MEAN PLATELET VOLUME 9.3 FL (7.4-10.4); PLATELET COUNT 287 /CUMM (130-400); RBC DISTRIBUTION WIDTH 17.3 % (11.5-14.5); RED BLOOD CELL CT 3.22 /CUMM (4.70-6.10); WHITE BLOOD CELL COUNT 13.7 /CUMM (4.8-10.8)
[2017-02-13 09:08] VITALS: BP 122/82
--- NOTE | 2017-02-13 11:39 | PN- Cardiology ---
Subjective Subjective: The patient is seen for a rapid response. He developed SVT with rate in the 200s. He complained of palpitations and tightness in the chest. While adenosine was being prepared, he converted to multifocal atrial tachycardia in the 150s, and he is now in sinus tachycardia in the 120s. Objective Vital Signs and I&Os Vital Signs Date Time Temp Pulse Resp B/P B/P Pulse O2 O2 Flow FiO2 Mean Ox Delivery Rate 02/13 0908 99.7 117 18 122/82 92 Room Air 02/13 0631 114 122/66 02/13 0232 100.5 125 22 122/66 92 Room Air 02/12 1646 99.8 118 20 142/80 Intake & Output 02/13 1600 02/13 0800 02/13 0000 02/12 1600 02/12 0800 02/12 0000 Intake Total 1274.8 1383.2 932.2 990.0 Output Total 800 700 750 550 550 Balance 474.8 -700 633.2 382.2 440.0 Intake, IV 240 20 Intake, Lipid 175.2 116.8 246.8 120.0 Intake, Oral 100 360 20 100 Intake, 999.6 666.4 665.4 750 TPN/PPN Number 3 2 2 Bowel Movements Output, Urine 800 700 750 550 550 Physical Exam: Gen: NAD HEENT: normal Lungs: clear to auscultation, normal resp. effort Heart: Tachycardic, S1, S2, no murmurs Abdomen: Soft, nontender, no masses Extremities: No clubbing, cyanosis, or edema. Neuro: Alert and oriented x 3, cranial nerves intact Current Medications: Current Medications Sig/Ghulam Start time Last Medication Dose Route Stop Time Status Admin Adenosine 6 MG ONCE ONE 02/13 1045 CAN IV 02/13 1046 Albuterol Sulfate 3 ML Q6H PRN 02/10 0400 AC INH Diltiazem HCl 125 MG Q16H 02/13 1100 CAN Dextrose/Water 100 ML IV Diltiazem HCl 180 MG BID 02/13 0600 DC 02/13 PO 0631 Diltiazem HCl 120 MG BID 02/11 1445 DC 02/12 PO 2207 Fat Emulsion 350 ML 1900 02/12 1900 AC 02/12 Intravenous IV 02/13 1858 2000 Fat Emulsion 350 ML Q24H 02/12 1700 CAN Intravenous IV 02/13 1658 Fat Emulsion 350 ML 1900 02/11 1900 [place] 02/11 Intravenous IV 02/12 185 195 Ferrous Sulfate 325 MG DAILY 02/12 1000 02/13 PO 0954 Folic Acid 1 MG DAILY 02/10 1000 02/13 PO 0954 Ibuprofen 600 MG Q6P PRN 02/10 0345 PO Levetiracetam 1,000 MG Q12 02/12 2200 02/13 PO 0954 Levetiracetam 1,000 MG Q12 02/10 0500 DC 02/12 PO 0941 Magnesium Oxide 400 MG BID 02/12 2200 02/13 PO 0954 Magnesium Sulfate 1 GM Q2H 02/12 1015 [place] 02/12 Dextrose/Water 100 ML IV 02/12 1414 1218 Metoprolol Tartrate 25 MG BID 02/13 1057 PO Multivitamins 1 TAB DAILY 02/10 1000 02/13 Therapeutic PO 0954 Omeprazole 40 MG DAILY AC 02/10 0700 02/13 PO 0632 Ondansetron HCl 4 MG Q6P PRN 02/10 0400 PO Oxybutynin Chloride 5 MG DAILY 02/10 1000 02/13 PO 0954 Oxycodone HCl 5 MG Q6P PRN 02/10 0345 PO Patient Medication 1 ED .STK-MED ONE 02/12 1431 [place] Teaching ED 02/12 1432 Phenytoin 200 MG BID 02/10 0600 02/13 PO 0954 Potassium Chloride 40 MEQ ONCE ONE 02/12 1800 DC 02/12 PO 02/12 1801 2208 Sertraline HCl 25 MG DAILY 02/10 1000 02/13 PO 0954 Total Parenteral 1 UNIT 0 02/12 1900 02/12 Nutrition IV 02/13 1851999 Total Parenteral 1 UNIT 1900 02/11 1900 [place] 02/11 Nutrition IV 02/12 Trazodone HCl 50 MG AT BEDTIME 02/10 2200 02/12 PO 2208 Results Last 48 Hrs of Labs/Mics: Laboratory Tests 02/13/17 1100: Troponin I Pending 02/13/17 0640: Anion Gap 7, Estimated GFR > 60, BUN/Creatinine Ratio 45.0 H, CBC w Diff NO MAN DIFF REQ, RBC 3.22 L, MCV 87.1, MCH 28.8, RDW 17.3 H, MPV 9.3, Gran % 86.0 H, Lymphocytes % 7.1 L, Monocytes % 6.5, Eosinophils % 0.1, Basophils % 0.3, Absolute Granulocytes 11.8 H, Absolute Lymphocytes 1.0 L, Absolute Monocytes 0.9 H, Absolute Eosinophils 0, Absolute Basophils 0, PUBS MCHC 33.1 02/12/17 0518: Anion Gap 10, Estimated GFR > 60, Glucose 105 H, Calcium 7.6 L, Phosphorus 3.4 , Magnesium 1.4 L, Total Bilirubin 0.3, AST 48, ALT 68, Alkaline Phosphatase 229 H, Albumin 2.0 L, CBC w Diff NO MAN DIFF REQ, RBC 2.80 L, MCV 86.9, MCH 28.1, RDW 17.4 H, MPV 9.1, Gran % 82.2 H, Lymphocytes % 9.1 L, Monocytes % 8.3, Eosinophils % 0.2, Basophils % 0.2, Absolute Granulocytes 8.3 H, Absolute Lymphocytes 0.9 L, Absolute Monocytes 0.8 H, Absolute Eosinophils 0, Absolute Basophils 0, PUBS MCHC 32.3 L 02/11/17 2140: Anion Gap 7, Estimated GFR > 60, Glucose 109 H, Calcium 7.8 L, Phosphorus 3.4, Magnesium 1.4 L, Total Bilirubin 0.3, AST 52, ALT 74 H, Albumin 2.0 L, CBC w Diff NO MAN DIFF REQ, RBC 2.91 L, MCV 86.1, MCH 27.9, RDW 17.5 H, MPV 9.1, Gran % 85.4 H, Lymphocytes % 7.2 L, Monocytes % 6.7, Eosinophils % 0.4, Basophils % 0.3, Absolute Granulocytes 10.6 H, Absolute Lymphocytes 0.9 L, Absolute Monocytes 0.8 H, Absolute Eosinophils 0, Absolute Basophils 0, PUBS MCHC 32.5 L Recent Imaging Studies: CTA chest: 1. No evidence of pulmonary embolism. 2. Bilateral pleural effusions and partial compression atelectasis of the lower lobes. 3. Eventration of the right hemidiaphragm. 4. Ill-defined scarring apical posterior segment of the right upper lobe. 5. Abnormal gallbladder with abnormal location and internal contents as described. Assessment/Plan Assessment/Plan Assessment: 1. Paroxysmal SVT and multifocal atrial tachycardia 2. Intra-abdominal tumor. Plan: * Continue diltiazem SR 180 mg by mouth twice a day * Start metoprolol 25 mg by mouth twice a day * If further episodes of SVT, will consider using adenosine to convert to sinus rhythm Continue telemetry? Yes
--- NOTE | 2017-02-13 12:06 | PN- Housestaff ---
DOUGLAS GUZMAN 02/13/17 1144: Subjective Follow-up For: Paroxysmal SVT and multifocal atrial tachycardia Intra-abdominal tumor (pseudomyxoma peritonei) Chronic anemia Malnutrition Tele-Events Since Last Visit: Sinus tachycardia. 118-130 Subjective: This morning rapid response was called because patient's heart rate was in 220s. Patient is also complaining of chest pain radiating to his jaw, palpitations and nausea. On monitor he was found to be in SVT. Dr. Parks and Dr. Reaves were also at bedside. After 1 minute or so his heart rate came down to 140s without any intervention. Repeat EKG showed multifocal atrial tachycardia. He was already on Cardizem 180 mg twice a day. Initially there was plan to start him on Cardizem drip but later on his heart rate went down to 130s so according to cardio recommendations he was started on metoprolol 25 twice a day in addition to Cardizem PO that he was on. Review of Systems Constitutional: Reports: see HPI. Objective Last 24 Hrs of Vital Signs/I&O Vital Signs Date Time Temp Pulse Resp B/P B/P Pulse O2 O2 Flow FiO2 Mean Ox Delivery Rate 02/13 1129 115 122/70 02/13 0908 99.7 117 18 122/82 92 Room Air 02/13 0631 114 122/66 02/13 0232 100.5 125 22 122/66 92 Room Air 02/12 1646 99.8 118 20 142/80 Intake & Output 02/13 1600 02/13 0800 02/13 0000 Intake Total 1274.8 Output Total 800 700 Balance 474.8 -700 Intake, Lipid 175.2 Intake, Oral 100 Intake, 999.6 TPN/PPN Number 3 Bowel Movements Output, Urine 800 700 Physical Exam General Appearance: Alert, Oriented X3, Cooperative Neck: Supple Cardiovascular: tachycardia Lungs: Clear to Auscultation Abdomen: Normal Bowel Sounds, Soft, No Tenderness Neurological: Normal Speech, Strength at 5/5 X4 Ext, Sensation Intact, Cranial Nerves 3-12 NL Extremities: 1+ pitting edema bilaterally Current Medications: Current Medications Sig/Ghulam Start time Last Medication Dose Route Stop Time Status Admin Adenosine 6 MG ONCE ONE 02/13 1045 CAN IV 02/13 1046 Albuterol Sulfate 3 ML Q6H PRN 02/10 0400 AC INH Diltiazem HCl 180 MG BID 02/13 2200 AC PO Diltiazem HCl 125 MG Q16H 02/13 1100 CAN Dextrose/Water 100 ML IV Diltiazem HCl 180 MG BID 02/13 0600 DC 02/13 PO 0631 Diltiazem HCl 120 MG BID 02/11 1445 DC 02/12 PO 2207 Fat Emulsion 350 ML 1900 02/12 1900 AC 02/12 Intravenous IV 02/13 1851999 Fat Emulsion 350 ML 1900 02/11 1900 DC 02/11 Intravenous IV 02/12 1851956 Ferrous Sulfate 325 MG DAILY 02/12 1000 AC 02/13 PO 0954 Folic Acid 1 MG DAILY 02/10 1000 AC 02/13 PO 0954 Ibuprofen 600 MG Q6P PRN 02/10 0345 AC PO Levetiracetam 1,000 MG Q12 02/12 2200 AC 02/13 PO 0954 Levetiracetam 1,000 MG Q12 02/10 0500 DC 02/12 PO 0941 Magnesium Oxide 400 MG ONE ONE 02/13 1200 AC PO 02/13 1201 Magnesium Oxide 400 MG BID 02/12 2200 AC 02/13 PO 0954 Magnesium Sulfate 1 GM Q2H 02/12 1015 DC 02/12 Dextrose/Water 100 ML IV 02/12 1414 1218 Metoprolol Tartrate 25 MG BID 02/13 1057 AC 02/13 PO 1129 Multivitamins 1 TAB DAILY 02/10 1000 AC 02/13 Therapeutic PO 0954 Omeprazole 40 MG DAILY AC 02/10 0700 AC 02/13 PO 0632 Ondansetron HCl 4 MG Q6P PRN 02/10 0400 PO Oxybutynin Chloride 5 MG DAILY 02/10 1000 AC 02/13 PO 0954 Oxycodone HCl 5 MG Q6P PRN 02/10 0345 AC PO Patient Medication 1 ED .STK-MED ONE 02/12 1431 DC Teaching ED 02/12 1432 Phenytoin 200 MG BID 02/10 0600 AC 02/13 PO 0954 Potassium Chloride 60 MEQ ONCE ONE 02/13 1200 AC PO 02/13 1201 Potassium Chloride 40 MEQ ONCE ONE 02/12 1800 DC 02/12 PO 02/12 1801 2208 Sertraline HCl 25 MG DAILY 02/10 1000 AC 02/13 PO 0954 Total Parenteral 1 UNIT 1900 02/12 1900 AC 02/12 Nutrition IV 02/13 Total Parenteral 1 UNIT 1900 02/11 1900 DC 02/11 Nutrition IV 02/12 Trazodone HCl 50 MG AT BEDTIME 02/10 2200 AC 02/12 PO 2207 Last 24 Hrs of Lab/Yuri Results Last 24 Hrs of Labs/Mics: Laboratory Tests 02/13/17 1100: Troponin I Pending 02/13/17 0640: Anion Gap 7, Estimated GFR > 60, BUN/Creatinine Ratio 45.0 H, Magnesium Pending , CBC w Diff NO MAN DIFF REQ, RBC 3.22 L, MCV 87.1, MCH 28.8, RDW 17.3 H, MPV 9.3, Gran % 86.0 H, Lymphocytes % 7.1 L, Monocytes % 6.5, Eosinophils % 0.1, Basophils % 0.3, Absolute Granulocytes 11.8 H, Absolute Lymphocytes 1.0 L, Absolute Monocytes 0.9 H, Absolute Eosinophils 0, Absolute Basophils 0, PUBS MCHC 33.1 Lines/Diet/Fluids Fluids/Infusions: TPN Assessment/Plan Assessment: Mr. 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 Problem list 1. Paroxysmal SVT and multifocal atrial tachycardia 2. Intra-abdominal tumor (pseudomyxoma peritonei) 3. Chronic anemia. Status post 2 units of blood transfusion. H&H stable 4. Malnutrition. Currently on TPN 5. Electrolyte abnormalities 6. Fever with elevated WBC count. ? UTI. MAXIMUM TEMPERATURE 100.5. WBC count 13.7. Previous urine culture growing Escherichia coli and VRE. Both sensitive to nitrofurantoin. Per ID urinary colonization secondary to Sanchez catheter PLAN * Monitor vitals closely * Continue telemetry monitoring and watch for any arrhythmias * Monitor electrolytes daily and replete accordingly * Continue Cardizem 180 mg twice a day * Started him on metoprolol 25 mg twice a day * Per cardio If further episodes of SVT, will consider using adenosine to convert to sinus rhythm * Repeat UA and urine culture * surgical oncology followup scheduled on 02/25/2017 at 10:15AM * ID consult * Continue TPN * Continue other medications * ALPS for DVT prophylaxis * Patient is DNR/DNI Problem List: 1. Multifocal atrial tachycardia Pain Ratin Pain Location: none Pain Goal: Pain 4 or less Pain Plan: tylenol Tomorrow's Labs & Rationales: cbc, bep DVT/Prophylaxis: johnny PARKS MD,ALAINAMARELYAllan 02/13/17 1401: Attending MD Review Statement Attending Statement Attending MD Statement: examined this patient, discuss w/resident/PA/HOT PACKER, agreed w/resident/PA/HOT PACKER, reviewed EMR data (avail), discussed with nursing, discussed with case mgmt, amended to note Attending Assessment/Plan: Patient seen and examined. Overnight he had been in sinus tachycardia with heart rate in 120s. He was resting comfortably and not in any distress or denied chest pain palpitations or shortness of breath. Refuse to undergo MRI as recommended by the ID service stating he was not comfortable in the machine. I did offer him angiolytic medications and pain medications however he adamantly refused to return and have the MRI done. Lungs are clear to auscultation bilaterally abdomen soft and nontender. He had no peripheral edema. Urine in the urine by was very cloudy and concentrated. Zoloft evaluated him patient developed supraventricular tachycardia with heart rate of 220. He complained of mild chest pain and palpitations. Denies shortness of breath. Blood pressure was stable and he was mentating appropriately. Prior to initiation of the maneuvers and administration of adenosine patient spontaneously converted multifocal atrial tachycardia and then sinus tachycardia Confirmed by EKG. He remained hemodynamically stable. Apparently has had similar episodes in the past. Recommendations: -Cardiology follow-up appreciated. Continue diltiazem orally and start patient on metoprolol -If patient has further episodes of SVT administer adenosine to convert to sinus rhythm. -Continue telemetry monitoring. -Patient had a low-grade fever of 100.5 this morning. He is growing Escherichia coli and VRE in the urine. The ID service had previously recommended holding off antibiotic therapy however he was afebrile at that time. Please reconsult the ID service. -Follow-up and management of his intra-abdominal malignancy to be done upon discharge with his providers at [facility]. -He does have nonspecific low-density hepatic lesions noted on the recent CT abdomen. An MRI would be ideal to further evaluate these and determine if these represent infectious foci however patient is adamant on not having this test done -
[2017-02-13 15:39] VITALS: BP 130/70
[2017-02-14 00:16] VITALS: BP 120/80
[2017-02-14 08:09] VITALS: BP 122/80
[2017-02-14 08:28] LABS: ABSOLUTE BASOPHIL COUNT 0 /CUMM (0.0-0.2); ABSOLUTE EOSINOPHIL COUNT 0 /CUMM (0.0-0.7); ABSOLUTE GRANULOCYTE CT 11.8 /CUMM (1.4-6.5); ABSOLUTE LYMPH COUNT 0.8 /CUMM (1.2-3.4); ABSOLUTE MONOCYTE COUNT 1.1 /CUMM (0.10-0.60); BASOPHIL % 0.2 % (0.0-2.0); EOSINOPHIL % 0.3 % (0-5); GRANULOCYTE % 85.9 % (42.2-75.2); HEMATOCRIT 30.9 % (42-52); MEAN CORPUSCULAR HGB 28.3 PG (27.0-31.0); MEAN CORPUSCULAR HGB CONC 32.2 G/DL (33.0-37.0); MEAN CORPUSCULAR VOLUME 88.1 FL (80.0-94.0); MEAN PLATELET VOLUME 9.1 FL (7.4-10.4); PLATELET COUNT 296 /CUMM (130-400); RBC DISTRIBUTION WIDTH 17.2 % (11.5-14.5); WHITE BLOOD CELL COUNT 13.7 /CUMM (4.8-10.8)
--- NOTE | 2017-02-14 09:51 | PN- Infect Dx ---
Subjective Subjective: Afebrile. He does note lower back pain but is otherwise without complaints. He developed SVT and multifocal atrial tachycardia yesterday after a low-grade fever the previous night. Objective Last 24 Hrs of Vital Signs/I&O Vital Signs Date Time Temp Pulse Resp B/P B/P Pulse O2 O2 Flow FiO2 Mean Ox Delivery Rate 02/14 0809 98.9 119 16 122/80 97 Nasal 2.0L Cannula 02/14 0016 99.0 119 16 120/80 95 Nasal 2.0L Cannula 02/14 0000 95 Nasal 2.0L Cannula 02/13 2132 112 118/64 02/13 2131 112 118/64 02/13 1600 99 Nasal 2.0L Cannula 02/13 1539 97.4 112 20 130/70 97 02/13 1129 115 122/70 Intake & Output 02/14 1600 02/14 0800 02/14 0000 Intake Total 933.2 950.0 Output Total 500 400 Balance 433.2 550.0 Intake, Lipid 116.8 130.0 Intake, Oral 150 70 Intake, 666.4 750 TPN/PPN Number 1 Bowel Movements Output, Urine 500 400 Physical Exam Other Physical Findings: He appears comfortable in no acute distress Lungs decreased breath sounds bilaterally Heart regular rhythm with no murmur Abdomen distended, tender over the lower abdomen, with no guarding or rebound, positive bowel sounds Extremities 1+ edema both lower extremities; PICC in the right upper extremity with no inflammation at the site Sanchez cath remains in place with feculent appearing material Results Last 24 Hours of Lab Results: Laboratory Tests 02/14 02/13 0610 1730 Chemistry Sodium (137 - 145 mmol/L) 138 Potassium (3.5 - 5.1 mmol/L) 3.7 Chloride (98 - 107 mmol/L) 102 Carbon Dioxide (22 - 30 mmol/L) 27 Anion Gap (5 - 16) 8 BUN (9 - 20 mg/dL) 31 H Creatinine (0.7 - 1.2 mg/dL) 0.6 L Estimated GFR (>60 ml/min) > 60 BUN/Creatinine Ratio (7 - 25 %) 51.7 H Magnesium (1.6 - 2.3 mg/dL) 1.5 L Hematology CBC w Diff NO MAN DIFF REQ WBC (4.8 - 10.8 /CUMM) 13.7 H RBC (4.70 - 6.10 /CUMM) 3.50 L Hgb (14.0 - 18.0 G/DL) 9.9 L Hct (42 - 52 %) 30.9 L MCV (80.0 - 94.0 FL) 88.1 MCH (27.0 - 31.0 PG) 28.3 RDW (11.5 - 14.5 %) 17.2 H Plt Count (130 - 400 /CUMM) 296 MPV (7.4 - 10.4 FL) 9.1 Gran % (42.2 - 75.2 %) 85.9 H Lymphocytes % (20.5 - 51.1 %) 5.9 L Monocytes % (1.7 - 9.3 %) 7.7 Eosinophils % (0 - 5 %) 0.3 Basophils % (0.0 - 2.0 %) 0.2 Absolute Granulocytes (1.4 - 6.5 /CUMM) 11.8 H Absolute Lymphocytes (1.2 - 3.4 /CUMM) 0.8 L Absolute Monocytes (0.10 - 0.60 /CUMM) 1.1 H Absolute Eosinophils (0.0 - 0.7 /CUMM) 0 Absolute Basophils (0.0 - 0.2 /CUMM) 0 PUBS MCHC (33.0 - 37.0 G/DL) 32.2 L Urines Urine Color (YEL,AMB,STR) YEL Urine Clarity (CLEAR) TURBD H Urine pH (5.0 - 8.0) 6.0 Ur Specific [place] (1.001 - 1.035) >= 1.030 Urine Protein (NEG,<30 MG/DL) 100 H Urine Ketones (NEG) NEG Urine Nitrite (NEG) NEG Urine Bilirubin (NEG) POS@ICTO H Urine Urobilinogen (0.1 - 1.0 EU/dl) 1.0 Ur Leukocyte Esterase (NEG) LARGE H Ur Microscopic SEDIMENT EXAMINED Urine RBC (0 - 5 /HPF) 3-5 Urine WBC (0 - 2 /HPF) PACKD H Ur Epithelial Cells (NONE,FEW) FEW Urine Bacteria (NEG/NONE) PACKD H Urine Hemoglobin (NEG) LARGE H Urine Glucose (N MG/DL) NEG 02/13 1100 Chemistry Troponin I (<0.11 ng/ml) 0.05 Last 24 Hours of Yuri Results: Blood cultures February 13 negative Urine culture February 13 with multiple colony types consistent with contamination Urine cultures 2 February 09 greater than 100,000 colonies of Escherichia coli sensitive to all antibiotics and VRE Assessment/Plan Impression: Stable though he did have a low-grade fever the night before last and white blood cell count has increased, though unchanged from yesterday, suggesting the possibility of an infection, most likely related to his large pelvic tumor, containing regions of gas, which was the most likely explanation for his recent candidemia diagnosed and treated recently at [place]. The recent CTA of the chest revealed abnormalities related to the gallbladder, which were not noted on his previous CT of the abdomen and pelvis or his right upper quadrant ultrasound but , with his elevated liver enzymes and white blood cell count, further evaluation may be warranted, particularly given the finding of ill-defined low-density hepatic lesions on the recent CT of the abdomen, possibly suggestive of metastatic disease. 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 Suggestion: 1. Consider MRCP/ MRI of the abdomen 2. Follow-up recent cultures 3. Follow-up pathology on the pelvic mass biopsy performed at [place] 4. Continue to follow off antibiotics pending above
--- NOTE | 2017-02-14 11:18 | PN- Housestaff ---
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 He was complaining of tachycardia and palpitation. He told me that when he lies on the left side. He feels more tachycardic and short of breath. He doesn't want to go to MRI. Review of Systems Constitutional: Reports: no symptoms. Cardiovascular: Reports: palpitations. Respiratory: Reports: short of breath. Objective Last 24 Hrs of Vital Signs/I&O Vital Signs Date Time Temp Pulse Resp B/P B/P Pulse O2 O2 Flow FiO2 Mean Ox Delivery Rate 02/14 1600 95 Nasal 2.0L Cannula 02/14 1552 98.0 117 16 108/58 94 Nasal 2.5L Cannula 02/14 0917 119 122/80 02/14 0916 119 122/80 02/14 0809 98.9 119 16 122/80 97 Nasal 2.0L Cannula 02/14 0800 96 Nasal 2.0L Cannula 02/14 0016 99.0 119 16 120/80 95 Nasal 2.0L Cannula 02/14 0000 95 Nasal 2.0L Cannula Intake & Output 02/14 1600 02/14 0800 02/14 0000 Intake Total 1082.8 933.2 950.0 Output Total 500 400 Balance 1082.8 433.2 550.0 Intake, Lipid 116.4 116.8 130.0 Intake, Oral 300 150 70 Intake, 666.4 666.4 750 TPN/PPN Number 1 Bowel Movements Output, Urine 500 400 Physical Exam General Appearance: Alert, Oriented X3, Cooperative, No Acute Distress Cardiovascular: Normal S1, Normal S2, rapid heart rate Lungs: Normal Air Movement, right lower lobe decrease/absent air entry Abdomen: Soft, tender, scar kyung in middle part of lower abdomen Neurological: Normal Speech Extremities: bilateral lower extremity pitting edema Current Medications: Current Medications Sig/Ghulam Start time Last Medication Dose Route Stop Time Status Admin Albuterol Sulfate 3 ML Q6H PRN 02/10 0400 AC INH Diltiazem HCl 180 MG BID 06/17 2200 AC 02/14 PO 0916 Fat Emulsion 350 ML 1900 02/14 1900 AC 02/14 Intravenous IV 02/15 Fat Emulsion 350 ML 0 02/13 1900 DC 02/13 Intravenous IV 02/14 Ferrous Sulfate 325 MG DAILY 02/12 1000 AC 02/14 PO 0916 Folic Acid 1 MG DAILY 02/10 1000 AC 02/14 PO 0916 Ibuprofen 600 MG Q6P PRN 02/10 0345 AC PO Levetiracetam 1,000 MG Q12 02/12 2200 AC 02/14 PO 0917 Magnesium Oxide 400 MG BID 02/12 2200 AC 02/14 PO 0917 Magnesium Sulfate 1 GM Q2H 02/14 1000 DC 02/14 Dextrose/Water 100 ML IV 02/14 1359 1144 Metoprolol Tartrate 50 MG BID 02/14 2200 PO Metoprolol Tartrate 25 MG BID 02/13 1057 DC 02/14 PO 0917 Multivitamins 1 TAB DAILY 02/10 1000 AC 02/14 Therapeutic PO 0917 Omeprazole 40 MG DAILY AC 02/10 0700 AC 02/14 PO 0608 Ondansetron HCl 4 MG Q6P PRN 02/10 0400 PO Oxybutynin Chloride 5 MG DAILY 02/10 1000 AC 02/14 PO 0916 Oxycodone HCl 5 MG Q6P PRN 02/10 0345 02/13 PO 2151 Phenytoin 200 MG BID 02/10 0600 02/14 PO 0916 Potassium Chloride 40 MEQ ONCE ONE 02/14 0930 MT 02/14 PO 02/14 0931 0946 Sertraline HCl 25 MG DAILY 02/10 1000 AC 02/14 PO 0917 Total Parenteral 1 UNIT 1900 02/14 1900 02/14 Nutrition IV 02/15 Total Parenteral 1 UNIT 1900 02/13 1900 MT 02/13 Nutrition IV 02/14 Trazodone HCl 50 MG AT BEDTIME 02/10 2200 02/13 PO 2128 Last 24 Hrs of Lab/Yuri Results Last 24 Hrs of Labs/Mics: Laboratory Tests 02/14/17 0610: Anion Gap 8, Estimated GFR > 60, BUN/Creatinine Ratio 51.7 H, Magnesium 1.5 L, CBC w Diff NO MAN DIFF REQ, RBC 3.50 L, MCV 88.1, MCH 28.3, RDW 17.2 H, MPV 9.1, Gran % 85.9 H, Lymphocytes % 5.9 L, Monocytes % 7.7, Eosinophils % 0.3, Basophils % 0.2, Absolute Granulocytes 11.8 H, Absolute Lymphocytes 0.8 L, Absolute Monocytes 1.1 H, Absolute Eosinophils 0, Absolute Basophils 0, PUBS MCHC 32.2 L Microbiology 02/14 1653 URINE ROUT: Urine Culture - RECD Assessment/Plan Assessment: Mr. 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 Problem list 1. Paroxysmal SVT and multifocal atrial tachycardia 2. Intra-abdominal tumor (pseudomyxoma peritonei) 3. Chronic anemia. Status post 2 units of blood transfusion. H&H stable 4. Malnutrition. Currently on TPN 5. Electrolyte abnormalities 6. Fever with elevated WBC count. ? UTI. MAXIMUM TEMPERATURE 100.5. WBC count 13.7. Previous urine culture growing Escherichia coli and VRE. Both sensitive to nitrofurantoin. Per ID urinary colonization secondary to Sanchez catheter PLAN * Monitor vitals closely * Continue telemetry monitoring and watch for any arrhythmias * Monitor electrolytes daily and replete accordingly * Continue Cardizem 180 mg twice a day * Increase the dose of metoprolol to 50 milligrams twice a day * Per cardio If further episodes of SVT, will consider using adenosine to convert to sinus rhythm * Repeat UA and urine culture * surgical oncology followup scheduled on 02/25/2017 at 10:15AM * ID consult * Continue TPN * Continue other medications * ALPS for DVT prophylaxis * CODE STATUS - DNR/DNI Problem List: 1. Low grade mucinous neoplasm of appendix 2. Supraventricular tachycardia Pain Ratin Pain Location: Abdomen Pain Goal: Remain pain free Pain Plan: Avoid NSAIDs Tomorrow's Labs & Rationales: CBC, BEP, magnesium, phosphorus for follow-up DVT/Prophylaxis: mechanical, pharmacological KODY SANFORD MD 02/14/17 1237: Attending MD Review Statement Attending Statement Attending MD Statement: examined this patient, discuss w/resident/PA/TREE WRAPPER, agreed w/resident/PA/TREE WRAPPER, reviewed EMR data (avail), discussed with nursing, discussed with case mgmt, amended to note Attending Assessment/Plan: Patient seen and examined. He remains afebrile and hemodynamically stable. He has no events on telemetry during remained in sinus tachycardia overnight. This morning he admits to mild chest discomfort on and off that has currently resolved. Denies shortness of breath. Denies palpitation. He does report abdominal discomfort and feeling of being bloated. On examination lungs are clear bilaterally. Heart sounds are regular but tachycardic. His abdomen is mildly distended. There is diffuse tenderness he does not allow for adequate examination to determine rebound or guarding. Sanchez catheter is in place draining turbid concentrated urine. Laboratory data shows persistent leukocytosis. Recommendations: -Follow-up with the cardiology service for rate control therapy. -ID follow-up appreciated. No antibiotic therapy recommended at present. Repeat urine culture was contaminated. Send another sample. -Follow-up on long-term management of his intra-abdominal malignancy to be done upon discharge at [facility]. Patient does not wish to undergo further surgery. He states that he is willing to consider chemotherapy. -Continue TPN. Monitor electrolytes daily.
--- NOTE | 2017-02-14 14:12 | PN- Cardiology ---
Subjective Subjective: No further palpitations. No chest pain. He notes occasional shortness of breath. No lightheadedness or dizziness. Objective Vital Signs and I&Os Vital Signs Date Time Temp Pulse Resp B/P B/P Pulse O2 O2 Flow FiO2 Mean Ox Delivery Rate 02/14 0917 119 122/80 02/14 0916 119 122/80 02/14 0809 98.9 119 16 122/80 97 Nasal 2.0L Cannula 02/14 0800 96 Nasal 2.0L Cannula 02/14 0016 99.0 119 16 120/80 95 Nasal 2.0L Cannula 02/14 0000 95 Nasal 2.0L Cannula 02/13 2132 112 118/64 02/13 2131 112 118/64 02/13 1600 99 Nasal 2.0L Cannula 02/13 1539 97.4 112 20 130/70 97 Intake & Output 02/14 1600 02/14 0800 02/14 0000 02/13 1600 02/13 0800 02/13 0000 Intake Total 933.2 950.0 1133.2 1274.8 Output Total 500 400 800 700 Balance 433.2 550.0 1133.2 474.8 -700 Intake, Lipid 116.8 130.0 116.8 175.2 Intake, Oral 150 70 350 100 Intake, 666.4 750 666.4 999.6 TPN/PPN Number 1 2 3 Bowel Movements Output, Urine 500 400 800 700 Physical Exam: Gen: NAD HEENT: normal Lungs: clear to auscultation, normal resp. effort Heart: Tachycardic, S1, S2, no murmurs Abdomen: Soft, nontender, no masses Extremities: No clubbing, cyanosis, or edema. Neuro: Alert and oriented x 3, cranial nerves intact Current Medications: Current Medications Sig/Ghulam Start time Last Medication Dose Route Stop Time Status Admin Albuterol Sulfate 3 ML Q6H PRN 02/10 0400 AC INH Diltiazem HCl 180 MG BID 02/13 2200 AC 02/14 PO 09 Fat Emulsion 350 ML 0 02/14 1900 AC Intravenous IV 02/15 185 Fat Emulsion 350 ML 1900 02/13 1900 AC 02/13 Intravenous IV 02/14 1852002 Fat Emulsion 350 ML 1900 02/12 1900 DC 02/12 Intravenous IV 02/13 Ferrous Sulfate 325 MG DAILY 02/12 1000 AC 02/14 PO 0916 Folic Acid 1 MG DAILY 02/10 1000 AC 02/14 PO 0916 Ibuprofen 600 MG Q6P PRN 02/10 0345 AC PO Levetiracetam 1,000 MG Q12 02/12 2200 AC 02/14 PO 0917 Magnesium Oxide 400 MG BID 02/12 2200 AC 02/14 PO 0917 Magnesium Sulfate 1 GM Q2H 02/14 1000 DC 02/14 Dextrose/Water 100 ML IV 02/14 1359 1144 Metoprolol Tartrate 25 MG BID 02/13 1057 AC 02/14 PO 0917 Multivitamins 1 TAB DAILY 02/10 1000 AC 02/14 Therapeutic PO 0917 Omeprazole 40 MG DAILY AC 02/10 0700 AC 02/14 PO 0608 Ondansetron HCl 4 MG Q6P PRN 02/10 0400 PO Oxybutynin Chloride 5 MG DAILY 02/10 1000 AC 02/14 PO 0916 Oxycodone HCl 5 MG Q6P PRN 02/10 0345 AC 02/13 PO 2151 Phenytoin 200 MG BID 02/10 0600 AC 02/14 PO 0916 Potassium Chloride 40 MEQ ONCE ONE 02/14 0930 DC 02/14 PO 02/14 0931 0946 Sertraline HCl 25 MG DAILY 02/10 1000 AC 02/14 PO 0917 Total Parenteral 1 UNIT 1900 02/14 190 Nutrition IV 02/15 185 Total Parenteral 1 UNIT 1900 02/13 1900 02/13 Nutrition IV 02/14 1852002 Total Parenteral 1 UNIT 1900 02/12 1900 [place] 02/12 Nutrition IV 02/13 1851999 Trazodone HCl 50 MG AT BEDTIME 02/10 220 02/13 PO 2128 Results Last 48 Hrs of Labs/Mics: Laboratory Tests 02/14/17 0610: Anion Gap 8, Estimated GFR > 60, BUN/Creatinine Ratio 51.7 H, Magnesium 1.5 L, CBC w Diff NO MAN DIFF REQ, RBC 3.50 L, MCV 88.1, MCH 28.3, RDW 17.2 H, MPV 9.1, Gran % 85.9 H, Lymphocytes % 5.9 L, Monocytes % 7.7, Eosinophils % 0.3, Basophils % 0.2, Absolute Granulocytes 11.8 H, Absolute Lymphocytes 0.8 L, Absolute Monocytes 1.1 H, Absolute Eosinophils 0, Absolute Basophils 0, PUBS MCHC 32.2 L 02/13/17 1730: Urine Color YEL, Urine Clarity TURBD H, Urine pH 6.0, Ur Specific Lulu >= 1.030, Urine Protein 100 H, Urine Ketones NEG, Urine Nitrite NEG, Urine Bilirubin POS@ICTO H, Urine Urobilinogen 1.0, Ur Leukocyte Esterase LARGE H, Ur Microscopic SEDIMENT EXAMINED, Urine RBC 3-5, Urine WBC PACKD H, Ur Epithelial Cells FEW, Urine Bacteria PACKD H, Urine Hemoglobin LARGE H, Urine Glucose NEG 02/13/17 1100: Troponin I 0.05 02/13/17 0640: Anion Gap 7, Estimated GFR > 60, BUN/Creatinine Ratio 45.0 H, Magnesium 1.4 L, CBC w Diff NO MAN DIFF REQ, RBC 3.22 L, MCV 87.1, MCH 28.8, RDW 17.3 H, MPV 9.3, Gran % 86.0 H, Lymphocytes % 7.1 L, Monocytes % 6.5, Eosinophils % 0.1, Basophils % 0.3, Absolute Granulocytes 11.8 H, Absolute Lymphocytes 1.0 L, Absolute Monocytes 0.9 H, Absolute Eosinophils 0, Absolute Basophils 0, PUBS MCHC 33.1 Microbiology 02/13 1730 URINE ROUT: Urine Culture - COMP Assessment/Plan Assessment/Plan Assessment: 1. Paroxysmal SVT and multifocal atrial tachycardia 2. Intra-abdominal tumor. Plan: * Continue diltiazem SR 180 mg by mouth twice a day * Increase metoprolol to 50 mg by mouth twice a day * If further episodes of SVT, will consider using adenosine to convert to sinus rhythm Continue telemetry? Yes
[2017-02-14 15:52] VITALS: BP 108/58
[2017-02-15 00:04] VITALS: BP 118/78
--- NOTE | 2017-02-15 07:48 | PN- Oncology ---
Subjective Subjective: He reports no complaints except being sleepy today. He does not want to talk much today. Review of Systems: limited due to patient's preference. Objective Vital Signs and I&Os Vital Signs Date Time Temp Pulse Resp B/P B/P Pulse O2 O2 Flow FiO2 Mean Ox Delivery Rate 02/15 0004 98.1 114 18 118/78 97 02/15 0000 Nasal 2.0L Cannula 02/14 2239 122 110/70 02/14 2239 122 110/70 02/14 1600 95 Nasal 2.0L Cannula 02/14 1552 98.0 117 16 108/58 94 Nasal 2.5L Cannula 02/14 0917 119 122/80 02/14 0916 119 122/80 02/14 0809 98.9 119 16 122/80 97 Nasal 2.0L Cannula 02/14 0800 96 Nasal 2.0L Cannula Intake & Output 02/15 0800 02/15 0000 02/14 1600 02/14 0800 02/14 0000 02/13 1600 Intake Total 903.2 1000.0 1082.8 933.2 950.0 1133.2 Output Total 350 400 500 400 Balance 553.2 600.0 1082.8 433.2 550.0 1133.2 Intake, IV 40 Intake, Lipid 116.8 120.0 116.4 116.8 130.0 116.8 Intake, Oral 120 200 300 150 70 350 Intake, 666.4 640 666.4 666.4 750 666.4 TPN/PPN Number 1 4 1 2 Bowel Movements Output, Urine 350 400 500 400 Physical Exam General Appearance: no apparent distress, comfortable Respiratory: chest non-tender, no respiratory distress, quiet respiration, on NC oxygen Cardiovascular: tachycardia Abdomen: normal bowel sounds, guarding, tenderness Extremities: 2+ BLE edema Current Medications: Current Medications Sig/Ghulam Start time Last Medication Dose Route Stop Time Status Admin Albuterol Sulfate 3 ML Q6H PRN 02/10 0400 AC INH Diltiazem HCl 180 MG BID 02/13 2200 AC 02/14 PO 223 Fat Emulsion 350 ML 0 02/14 190 AC 02/14 Intravenous IV 02/15 Fat Emulsion 350 ML 02/13 1900 DC 02/13 Intravenous IV 02/14 Ferrous Sulfate 325 MG DAILY 02/12 1000 AC 02/14 PO 0916 Folic Acid 1 MG DAILY 02/10 1000 AC 02/14 PO 0916 Ibuprofen 600 MG Q6P PRN 02/10 0345 AC PO Levetiracetam 1,000 MG Q12 02/12 2200 AC 02/14 PO 2236 Magnesium Oxide 400 MG BID 02/12 2200 AC 02/14 PO 2236 Magnesium Sulfate 1 GM Q2H 02/14 1000 DC 02/14 Dextrose/Water 100 ML IV 02/14 1359 1144 Metoprolol Tartrate 50 MG BID 02/14 2200 AC 02/14 PO 2239 Metoprolol Tartrate 25 MG BID 02/13 1057 DC 02/14 PO 0917 Multivitamins 1 TAB DAILY 02/10 1000 AC 02/14 Therapeutic PO 0917 Omeprazole 40 MG DAILY AC 02/10 0700 AC 02/15 PO 0551 Ondansetron HCl 4 MG Q6P PRN 02/10 0400 AC PO Oxybutynin Chloride 5 MG DAILY 02/10 1000 AC 02/14 PO 0916 Oxycodone HCl 5 MG Q6P PRN 02/10 0345 AC 02/13 PO 2151 Phenytoin 200 MG BID 02/10 0600 AC 02/14 PO 2235 Potassium Chloride 40 MEQ ONCE ONE 02/14 0930 DC 02/14 PO 02/14 0931 0946 Sertraline HCl 25 MG DAILY 02/10 1000 AC 02/14 PO 0917 Total Parenteral 1 UNIT 1900 02/14 1900 AC 02/14 Nutrition IV 02/15 Total Parenteral 1 UNIT 1900 02/13 1900 DC 02/13 Nutrition IV 02/14 1852002 Trazodone HCl 50 MG AT BEDTIME 02/10 220 AC 02/14 PO 2236 Results Last 24 Hours of Lab Results: Laboratory Tests 02/15 0600 Chemistry Sodium (137 - 145 mmol/L) 135 L Potassium (3.5 - 5.1 mmol/L) 3.9 Chloride (98 - 107 mmol/L) 102 Carbon Dioxide (22 - 30 mmol/L) 28 Anion Gap (5 - 16) 5 BUN (9 - 20 mg/dL) 33 H Creatinine (0.7 - 1.2 mg/dL) 0.6 L Estimated GFR (>60 ml/min) > 60 BUN/Creatinine Ratio (7 - 25 %) 55.0 H Magnesium (1.6 - 2.3 mg/dL) 1.7 Assessment/Plan Assessment/Recommendations: Mr. 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 He is currently on TPN for malnutrition. He is pending surgical oncology evaluation for removal of mass but is limited due to his severely malnourish. He continues to be tachycardic. CTA is negative for PE. Cardiology is following. For his abdominal mass, pathology is a low grade mucinous epithelial neoplasm. Chemotherapy would likely not be as beneficial and responsive. Given his current clinical status, he would also unlikely to tolerate therapy. The main therapeutic option for these tumors is surgery. He will need to follow up with surgical oncology as scheduled on 02/25/2017 at 10:15AM. Recommendations: 1. Follow up with surgical oncology at [facility], Dr. Jr Asher as scheduled 2. Continue nutritional support with TPN and oral intake 3. Continue iron supplementation 4. Follow up 1-2 weeks after discharge Please call [phone] with any questions or concerns. Problem List: 1. Low grade mucinous neoplasm of appendix 2. Sinus tachycardia
[2017-02-15 08:00] VITALS: BP 110/62
--- NOTE | 2017-02-15 08:25 | PN- Housestaff ---
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 He was complaining of pain in abdomen, and also shortness of breath when he lied on the left side. We discussed again about the MRI abdomen, but he refused for it. We also called to the [facility] pathology lab to get the pathology specimen report. Review of Systems Constitutional: Reports: no symptoms. Respiratory: Reports: short of breath. Gastrointestinal: Reports: abdominal pain. Objective Last 24 Hrs of Vital Signs/I&O Vital Signs Date Time Temp Pulse Resp B/P B/P Pulse O2 O2 Flow FiO2 Mean Ox Delivery Rate 02/15 1554 98.9 116 16 98/78 02/15 1540 98.9 116 16 98/78 95 Nasal 2.0L Cannula 02/15 0940 108 110/62 02/15 0939 108 110/62 02/15 0800 95 Nasal 2.0L Cannula 02/15 0800 98.6 108 18 110/62 98 Nasal Cannula 02/15 0004 98.1 114 18 118/78 97 02/15 0000 Nasal 2.0L Cannula 02/14 2239 122 110/70 02/14 2239 122 110/70 Intake & Output 02/15 1600 02/15 0800 02/15 0000 Intake Total 903.2 1000.0 Output Total 350 400 Balance 553.2 600.0 Intake, IV 40 Intake, Lipid 116.8 120.0 Intake, Oral 120 200 Intake, 666.4 640 TPN/PPN Number 1 4 Bowel Movements Output, Urine 350 400 Patient 91.286 kg Weight Weight Tika Lift Measurement Method Physical Exam General Appearance: Alert, Oriented X3, Cooperative, No Acute Distress Cardiovascular: Normal S1, Normal S2, murmur present Lungs: decrease air entry on right lower lobe. Abdomen: Soft, tender with scar kyung on mid line Neurological: Normal Speech Extremities: bilateral lower leg edema Current Medications: Current Medications Sig/Ghulam Start time Last Medication Dose Route Stop Time Status Admin Albuterol Sulfate 3 ML Q6H PRN 02/10 0400 DCD INH Diltiazem HCl 180 MG BID 02/13 2200 DCD 02/15 PO 0939 Enoxaparin Sodium 40 MG DAILY 02/15 1430 DCD SC Fat Emulsion 350 ML 0 02/15 1900 DCD Intravenous IV 02/16 1859 Fat Emulsion 350 ML 0 02/14 190 DCD 02/14 Intravenous IV 02/15 Fat Emulsion 350 ML 1900 02/13 1900 DC 02/13 Intravenous IV 02/14 Ferrous Sulfate 325 MG DAILY 02/12 1000 DCD 02/15 PO 0939 Folic Acid 1 MG DAILY 02/10 1000 DCD 02/15 PO 0940 Ibuprofen 600 MG Q6P PRN 02/10 0345 DCD PO Levetiracetam 1,000 MG Q12 02/120 DCD 02/15 PO 0940 Magnesium Oxide 400 MG BID 02/12 2200 DCD 02/15 PO 0940 Metoprolol Tartrate 50 MG BID 02/14 2200 DCD 02/15 PO 0940 Multivitamins 1 TAB DAILY 02/10 1000 DCD 02/15 Therapeutic PO 0940 Omeprazole 40 MG DAILY AC 02/10 0700 DCD 02/15 PO 0551 Ondansetron HCl 4 MG Q6P PRN 02/10 0400 DCD PO Oxybutynin Chloride 5 MG DAILY 02/10 1000 DCD 02/15 PO 0939 Oxycodone HCl 5 MG Q6P PRN 02/10 0345 DCD 02/13 PO 2151 Phenytoin 200 MG BID 02/10 0600 DCD 02/15 PO 0939 Sertraline HCl 25 MG DAILY 02/10 1000 DCD 02/15 PO 0940 Total Parenteral 1 UNIT 0 02/15 1900 DCD Nutrition IV 02/16 1859 Total Parenteral 1 UNIT 0 02/14 190 DCD 02/14 Nutrition IV 02/15 Total Parenteral 1 UNIT 1900 02/13 190 DC 02/13 Nutrition IV 02/14 Trazodone HCl 50 MG AT BEDTIME 02/10 2200 DCD 02/14 PO 2236 Last 24 Hrs of Lab/Yuri Results Last 24 Hrs of Labs/Mics: Laboratory Tests 02/15/17 0600: Anion Gap 5, Estimated GFR > 60, BUN/Creatinine Ratio 55.0 H, Magnesium 1.7 Assessment/Plan Assessment: Mr. 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 Problem list 1. Paroxysmal SVT and multifocal atrial tachycardia 2. Intra-abdominal tumor (pseudomyxoma peritonei) 3. Chronic anemia. Status post 2 units of blood transfusion. H&H stable 4. Malnutrition. Currently on TPN 5. Electrolyte abnormalities 6. Fever with elevated WBC count. ? UTI. MAXIMUM TEMPERATURE 100.5. WBC count 13.7. Previous urine culture growing Escherichia coli and VRE. Both sensitive to nitrofurantoin. Per ID urinary colonization secondary to Sanchez catheter PLAN * We will discharge him today * We will Continue Cardizem 180 mg twice a day, tablet metoprolol to 50 milligrams twice a day, TPN, subcutaneous heparin * Advised to surgical oncology followup scheduled on 02/25/2017 at 10:15AM * ID consult * Continue other medications * CODE STATUS - DNR/DNI Problem List: 1. Low grade mucinous neoplasm of appendix 2. Sinus tachycardia 3. Anxiety 4. JUAN (acute kidney injury) 5. Bilateral lower extremity edema Pain Ratin Pain Location: upper abdoman Pain Goal: Remain pain free Pain Plan: mild to moderate, avoid NSAIDs Tomorrow's Labs & Rationales: not required DVT/Prophylaxis: mechanical, pharmacological
--- NOTE | 2017-02-15 10:12 | PN- Infect Dx ---
Subjective Subjective: Afebrile without complaints Objective Last 24 Hrs of Vital Signs/I&O Vital Signs Date Time Temp Pulse Resp B/P B/P Pulse O2 O2 Flow FiO2 Mean Ox Delivery Rate 02/15 0940 108 110/62 02/15 0939 108 110/62 02/15 0800 98.6 108 18 110/62 98 Nasal Cannula 02/15 0004 98.1 114 18 118/78 97 02/15 0000 Nasal 2.0L Cannula 02/14 2239 122 110/70 02/14 2239 122 110/70 02/14 1600 95 Nasal 2.0L Cannula 02/14 1552 98.0 117 16 108/58 94 Nasal 2.5L Cannula Intake & Output 02/15 1600 02/15 0800 02/15 0000 Intake Total 903.2 1000.0 Output Total 350 400 Balance 553.2 600.0 Intake, IV 40 Intake, Lipid 116.8 120.0 Intake, Oral 120 200 Intake, 666.4 640 TPN/PPN Number 1 4 Bowel Movements Output, Urine 350 400 Physical Exam Other Physical Findings: He appears comfortable in no acute distress Abdomen is distended, tender on minimal palpation, with no guarding or rebound, positive bowel sounds Extremities 1+ edema both lower extremities; PICC in the right upper extremity with no inflammation at the site Sanchez catheter remains in place Results Last 24 Hours of Lab Results: Laboratory Tests 02/15 600 Chemistry Sodium (137 - 145 mmol/L) 135 L Potassium (3.5 - 5.1 mmol/L) 3.9 Chloride (98 - 107 mmol/L) 102 Carbon Dioxide (22 - 30 mmol/L) 28 Anion Gap (5 - 16) 5 BUN (9 - 20 mg/dL) 33 H Creatinine (0.7 - 1.2 mg/dL) 0.6 L Estimated GFR (>60 ml/min) > 60 BUN/Creatinine Ratio (7 - 25 %) 55.0 H Magnesium (1.6 - 2.3 mg/dL) 1.7 Last 24 Hours of Yuri Results: Blood cultures February 13 negative Urine culture February 14 greater than 100,000 colonies of gram negative rods and gram-positive cocci Assessment/Plan Impression: Remains stable with no further fevers though white blood cell count did increase over the last several days suggesting the possibility of an infection, perhaps related to his large pelvic tumor, which was the most likely explanation for his recent candidemia, diagnosed and treated recently at [facility] (with the recent CT scan revealing regions of gas, suggesting necrosis). The recent CTA of the chest revealed abnormalities related to the gallbladder, which were not noted on his previous CT of the abdomen and pelvis or his right upper quadrant ultrasound but , with his elevated liver enzymes and white blood cell count, further evaluation may be warranted, particularly given the finding of ill-defined low-density hepatic lesions on the recent CT of the abdomen, possibly suggestive of metastatic disease. 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 Suggestion: 1. Consider MRCP/ MRI of the abdomen 2. Follow-up pathology on the pelvic mass biopsy performed at [facility] 3. Continue to follow off antibiotics pending above
--- NOTE | 2017-02-15 14:01 | PN- Att Addend ---
Attending Addendum Attending Brief Note Patient seen and examined. Plan of care discussed with the medical team and the patient. Available lab work and radiology test reports were reviewed. Patient complains of pain in the right-sided abdomen. He does not report any fever. Denies any chest pains. Vital Signs Date Time Temp Pulse Resp B/P B/P Pulse O2 O2 Flow FiO2 Mean Ox Delivery Rate 02/15 0940 108 110/62 02/15 0939 108 110/62 02/15 0800 95 Nasal 2.0L Cannula 02/15 0800 98.6 108 18 110/62 98 Nasal Cannula 02/15 0004 98.1 114 18 118/78 97 02/15 0000 Nasal 2.0L Cannula 02/14 2239 122 110/70 02/14 2239 122 110/70 02/14 1600 95 Nasal 2.0L Cannula 02/14 1552 98.0 117 16 108/58 94 Nasal 2.5L Cannula Intake & Output 02/15 1600 02/15 0800 02/15 0000 Intake Total 903.2 1000.0 Output Total 350 400 Balance 553.2 600.0 Intake, IV 40 Intake, Lipid 116.8 120.0 Intake, Oral 120 200 Intake, 666.4 640 TPN/PPN Number 1 4 Bowel Movements Output, Urine 350 400 Patient 201 lb Weight Weight Tika Lift Measurement Method Exam: General: Patient awake but appears lethargic and is oriented without any distress; CVS: S1 plus S2 without any murmur or gallops Chest: Few scattered crepitation without any wheeze. There is no respiratory distress. Abdomen: Patient was reluctant to have his abdomen examined and palpated. A linear midline scar is noted. Abdomen appears slightly distended but was not palpated. TABLET TESTER: Awake alert oriented without any focal neuro deficit and follows command appropriately Extremities: No edema; no clubbing or cyanosis noted Laboratory Tests 02/15 600 Chemistry Sodium (137 - 145 mmol/L) 135 L Potassium (3.5 - 5.1 mmol/L) 3.9 Chloride (98 - 107 mmol/L) 102 Carbon Dioxide (22 - 30 mmol/L) 28 Anion Gap (5 - 16) 5 BUN (9 - 20 mg/dL) 33 H Creatinine (0.7 - 1.2 mg/dL) 0.6 L Estimated GFR (>60 ml/min) > 60 BUN/Creatinine Ratio (7 - 25 %) 55.0 H Magnesium (1.6 - 2.3 mg/dL) 1.7 Microbiology Date/Time Procedure - Status Source Growth 02/14 1653 Urine Culture - RES URINE ROUT GRAM NEGATIVE RODS GRAM POSITIVE COCCI Assessment 1. Paroxysmal SVT and multifocal atrial tachycardia 2. Intra-abdominal tumor (pseudomyxoma peritonei) 3. Chronic anemia. Status post 2 units of blood transfusion. H&H stable 4. Malnutrition. Currently on TPN 5. Electrolyte abnormalities 6. VRE colonization Plan * Continue telemetry monitoring. Lopressor does may need further up for adjustment if he is still tachycardic. * Out of bed and ambulate with assist * If clear by cardiology and no further interventions are anticipated and patient can be discharged back to intermediate. * Continue TPN
[2017-02-15] MEDS ORDERED: METOPROLOL TART50 M1 PO (14:41)
[2017-02-15] MEDS ORDERED: FERROUS SULFAT325 M2 PO (14:41)
[2017-02-15] MEDS ORDERED: DILTIAZEM 12HR90 MG PO (14:41)
[2017-02-15] MEDS ORDERED: KEPPRA1000 M1 PO (14:41)
[2017-02-15] MEDS ORDERED: OMEPRAZOLE40 M1 PO (15:08)
[2017-02-15 15:40] VITALS: BP 98/78
[2017-02-15 15:54] VITALS: BP 98/78
== END 2017-02-15 16:10 | DRG 308 ==
LOC: ERH 21:13 → ERHI 02-10 00:50 → CRI 02-10 00:50 → ENRESERV 02-10 04:06 → CRI 02-10 04:34 → 1NO 02-11 19:35 → ENPENDDIS 02-15 15:57 → 1NO 02-15 16:10
PROVIDERS: Emergency Medicine; Internal Medicine; Internal Medicine Adolescent Medicine; Internal Medicine Hematology & Oncology; Student in an Organized Health Care Education/Training Program; ADMIT Internal Medicine
PROC: 3E0336Z Introduction of Nutritional Substance into Peripheral Vein, Percutaneous Approach (ICD-10-PCS; principal; 2017-02-10)
PROC: 30233N1 Transfusion of Nonautologous Red Blood Cells into Peripheral Vein, Percutaneous Approach (ICD-10-PCS; 2017-02-11)
DX: I47.1 Supraventricular tachycardia (principal); E43 Unspecified severe protein-calorie malnutrition; N17.9 Acute kidney failure, unspecified; C78.6 Secondary malignant neoplasm of retroperitoneum and peritoneum; E83.39 Other disorders of phosphorus metabolism; C80.1 Malignant (primary) neoplasm, unspecified; E83.42 Hypomagnesemia; E46 Unspecified protein-calorie malnutrition; E86.0 Dehydration; D64.9 Anemia, unspecified; R74.0 Nonspecific elevation of levels of transaminase and lactic acid dehydrogenase [LDH]; Z86.711 Personal history of pulmonary embolism; K44.9 Diaphragmatic hernia without obstruction or gangrene; G40.909 Epilepsy, unspecified, not intractable, without status epilepticus; F32.9 Major depressive disorder, single episode, unspecified; G31.84 Mild cognitive impairment of uncertain or unknown etiology; Z79.01 Long term (current) use of anticoagulants; K21.9 Gastro-esophageal reflux disease without esophagitis; M85.80 Other specified disorders of bone density and structure, unspecified site; R19.00 Intra-abdominal and pelvic swelling, mass and lump, unspecified site; Z96.0 Presence of urogenital implants; D50.9 Iron deficiency anemia, unspecified; Z90.49 Acquired absence of other specified parts of digestive tract; N40.0 Benign prostatic hyperplasia without lower urinary tract symptoms; I49.1 Atrial premature depolarization; Z66 Do not resuscitate; Z68.25 Body mass index [BMI] 25.0-25.9, adult
CPT/HCPCS: 1NP; CCU; 36415; 74000; 74177; 81001; 82436; 86920; 87040; 87086; 87147; 93005; 93010; 93970; 96374; 96376; 97162-GP; 97164-GP; 97530-GO; 99291; J0153; J1650; J1953; J2997; J3490; P9016

== ENCOUNTER 2017-02-17 21:01 | Observation (INO) | payer OTHER, MEDICARE ==
[~2017-02-17] VITALS: Ht 182.9 cm; Wt 85.7 kg
[~2017-02-17 21:01] MED LIST changes: +8 HOUR650 MG PO; +ACEPHEN650 M1 PR; +ALBUTEROL2.5 MG/3 M INH/SOL; +BISACODYL10 M1 RC; +DILTIAZEM 12HR90 MG PO; +FERROUS SULFAT325 M2 PO; +FLEET ENEMA133 ML RC; +FOLIC ACID1 M1 PO; +IMODIUM A-D2 M1 PO; +KEPPRA1000 M1 PO; +LOVENOX100 MG/1 M SC; +MAGNESIUM OXID400 M1 PO; +METOPROLOL TART50 M1 PO; +MILK OF MA400 MG/52 PO; +MIRALAX17 G1 PO; +OMEPRAZOLE40 M1 PO; +ONDANSETRON HCL4 MG PO; +OXYBUTYNIN CHLOR5 M2 PO; +TPN; +TRAZODONE HCL50 M1 PO
--- NOTE | 2017-02-17 21:08 | ED GENERAL ADULT ---
History of Present Illness General Chief Complaint: General Adult Stated Complaint: TACHYCARDIA Source: patient Exam Limitations: poor historian Vital Signs & Intake/Output Vital Signs & Intake/Output Vital Signs Date Time Temp Pulse Resp B/P B/P Pulse O2 O2 Flow FiO2 Mean Ox Delivery Rate 02/18 0125 112 104/71 94 Room Air 02/18 0028 111 101/71 02/17 2338 109 99/69 94 Room Air 02/17 2309 98/68 02/17 2256 98.2 111 17 112/72 02/17 2256 111 112/72 02/17 2250 111 113/72 02/17 2110 98.2 119 17 134/77 94 Room Air ED Intake and Output 02/18 0000 02/17 1200 Intake Total Output Total Balance Patient 150 lb Weight Weight Estimated Measurement Method Allergies Coded Allergies: NO KNOWN ALLERGIES (01/11/14) Reconcile Medications Acetaminophen (8 Hour) 650 MG TABLET.ER 1 TAB PO Q4H PRN PAIN/TEMP/> 101 ( Reported) Acetaminophen (Acephen) 650 MG SUPP.RECT 1 SUPP HI Q4H PRN PAIN/TEMP>101 ( Reported) Albuterol Sulfate 2.5 MG/3 ML (0.083 %) VIAL.NEB 1 Vial INH/BRIT Q6H PRN SOB ( Reported) Bisacodyl 10 MG SUPP.RECT 1 SUP RC DAILY PRN CONSTIPATION (Reported) Diltiazem HCl (Diltiazem 12HR ER) 90 MG CAP.ER.12H 180 MG PO BID increase heart rate Enoxaparin Sodium (Lovenox) 100 MG/ML SYRINGE 100 MG SC Q12H BLOOD THINNER ( Reported) Ferrous Sulfate 325 MG (65 MG IRON) TABLET.DR 1 TAB PO DAILY anemia Folic Acid 1 MG TABLET 1 TAB PO DAILY SUPPLEMENT (Reported) Levetiracetam (Keppra) 1,000 MG TABLET 1 TAB PO Q12H seizure prophylaxis Loperamide HCl (Imodium A-D) 2 MG TABLET 1 TAB PO Q6H PRN LOOSE STOOL ( Reported) Magnesium Hydroxide (Milk Of Magnesia) 400 MG/5 ML ORAL.SUSP 30 ML PO DAILY PRN CONSTIPATION (Reported) Magnesium Oxide 400 MG TABLET 400 MG PO BID hypomagnesemia Metoprolol Tartrate 50 MG TABLET 1 TAB PO BID high heart rate Multivitamin (Daily Multiple Vitamin) 1 EACH TABLET 1 TAB PO DAILY SUPPLEMENT (Reported) Fitz Hernandez-B/Na Phos,Di-Ba (Fleet Enema) 19 GRAM-7 GRAM/118 ML ENEMA 1 E RC DAILY PRN CONSTIPATION (Reported) Omeprazole 40 MG CAPSULE.DR 1 CAP PO DAILY acidity Ondansetron HCl 4 MG TABLET 1 TAB PO Q6P PRN N/V (Reported) Oxybutynin Chloride 5 MG TABLET 1 TAB PO DAILY (Reported) Phenytoin Sodium Extended 100 MG CAPSULE 2 CAP PO BID SEIZURES (Reported) Polyethylene Glycol 3350 (Miralax) 17 GRAM POWD.PACK 1 PAC PO DAILY GI ( Reported) dissolve in water Sertraline HCl 25 MG TABLET 25 MG PO DAILY mental health [TPN] TPN (Reported) Trazodone HCl 50 MG TABLET 1 TAB PO QHS INSOMNIA (Reported) Triage Nurses Notes Reviewed? yes Onset: Abrupt Duration: unknown duration Timing: recent history HPI: 02/17/17 9:22 PM 62-year-old man brought in from shelter facility for tachycardia and difficulty breathing. The patient states that he's had palpitations and his heart is been racing. He denies any chest pain. He does admit to difficulty breathing. He is a poor historian. The onset of the symptoms was abrupt, the duration is really unclear, the severity is significant as his symptoms required him to come to the emergency department for care. (JAREN TOMLINSON DO) Past History Travel History Traveled to [place] past 21 day No Medical History Any Pertinent Medical History? 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 MOTHER, , Age 50-60; Cause: Cancer of unknown origin. BROTHER ([employer]). Relation not specified for: *No pertinent family history Hx Contributory? No (JAREN TOMLINSON DO) Review of Systems Review of Systems Constitutional: Reports: no symptoms. EENTM: Reports: no symptoms. Respiratory: Reports: short of breath. Cardiovascular: Reports: palpitations. GI: Reports: no symptoms. Genitourinary: Reports: no symptoms. Musculoskeletal: Reports: no symptoms. Skin: Reports: no symptoms. Neurological/Psychological: Reports: no symptoms. Hematologic/Endocrine: Reports: no symptoms. Immunologic/Allergic: Reports: no symptoms. All Other Systems: Reviewed and Negative (JAREN TOMLINSON DO) Physical Exam Physical Exam General Appearance: alert, awake, anxious Head: atraumatic, normal appearance Eyes: Bilateral: normal appearance, PERRL, EOMI. Ears, Nose, Throat: normal pharynx, normal ENT inspection Neck: normal inspection Respiratory: no respiratory distress Cardiovascular: regular rate/rhythm Peripheral Pulses: 4+ radial (R), 4+ radial (L) Gastrointestinal: soft, tenderness, DISTENDED Back: decreased range of motion Extremities: no edema Neurologic/Psych: awake, alert, CONFUSED Skin: diaphoresis Core Measures ACS in differential dx? Yes CVA/TIA Diagnosis: No Severe Sepsis Present: No Septic Shock Present: No (JAREN TOMLINSON DO) Progress Differential Diagnoses I considered the following diagnoses in my evaluation of the patient: [Pulmonary embolism, acute coronary syndrome, dehydration, electrolyte derangement, bowel obstruction] Plan of Care: Orders Procedure Date/time Status Nothing by Mouth 02/[address] in observation 02/18 0242 Active Vital Signs 02/18 218 Active Teach/Educate 02/18 218 Active Pain Treatment and Response 02/18 218 Active Nutritional Intake, Monitor 02/18 218 Active Isolation 02/18 218 Active Intake & Output 02/18 218 Active Patient Care Conference 02/18 218 Active Activity/Ambulation 02/18 218 Active BLOOD CULTURE 02/18 0135 Active BLOOD CULTURE 02/18 0128 Active Patient Data 02/18 0111 Active Saline Lock 02/19 48 Active Misc Message 02/19 48 Active ED Holding Orders 02/188 Active Vital Signs 02/188 Active Code Status 02/188 Active Add-on Test (ER Only) 02/17 2247 Active DILANTIN 02/18 2244 Complete Intake & Output 02/17 2230 Active CULTURE,URINE 02/17 2226 Active URINALYSIS 02/17 2226 Complete TROPONIN LEVEL 02/17 2131 Complete PROTHROMBIN TIME 02/17 2131 Complete COMPREHENSIVE METABOLIC PANEL 02/17 2131 Complete CBC WITHOUT DIFFERENTIAL 02/17 2131 Complete B-TYPE NATRIURETIC PEP (BNP) 02/17 2131 Complete EKG 02/17 2107 Active Current Medications Sig/Ghulam Start time Last Medication Dose Stop Time Status Admin Diltiazem HCl 180 MG BID 02/18 1000 AC (Cardizem SR) Levetiracetam 1,000 MG BID 02/18 1000 AC (Keppra) Magnesium Oxide 400 MG BID 02/18 1000 AC (Mag-Ox) Metoprolol Tartrate 75 MG BID 02/18 1000 AC (Lopressor) Oxybutynin Chloride 5 MG DAILY 02/18 1000 AC (Ditropan) Phenytoin 200 MG BID 02/18 1000 AC (Dilantin ER) Sertraline HCl 25 MG DAILY 02/18 1000 AC (Zoloft) Omeprazole 40 MG DAILY AC 02/18 0700 AC (Prilosec) Enoxaparin Sodium 100 MG Q12H 02/18 0245 UNVr (Lovenox) Ondansetron HCl 4 MG Q8P PRN 02/18 0245 AC (Zofran) Trazodone HCl 50 MG AT BEDTIME 02/18 0245 AC (Desyrel) Sodium Chloride 1,000 ML BOLUS ONE 02/17 2315 CAN (Normal Saline 0.9%) 02/18 0114 Laboratory Tests 02/17/179: Urine Color YEL, Urine Clarity CLDY H, Urine pH 6.0, Ur Specific Tatum 1.025, Urine Protein 100 H, Urine Ketones NEG, Urine Nitrite NEG, Urine Bilirubin NEG, Urine Urobilinogen 1.0, Ur Leukocyte Esterase LARGE H, Ur Microscopic SEDIMENT EXAMINED, Urine RBC >75 H, Urine WBC PACKD H, Urine Crystals 1+ CA OX H, Urine Bacteria PACKD H, Urine Hemoglobin LARGE H, Urine Glucose NEG 02/17/17 2244: Anion Gap 7, Estimated GFR > 60, BUN/Creatinine Ratio 61.7 H, Glucose 109 H, Calcium 7.9 L, Total Bilirubin 0.3, AST 86 H, ALT 108 H, Alkaline Phosphatase 282 H, Troponin I 0.04, [id number] Pept 3630 H, Total Protein 5.8 L, Albumin 2.1 L, Globulin 3.7, Albumin/Globulin Ratio 0.6 L, PT 13.2 H, INR 1.26 H, CBC w Diff NO MAN DIFF REQ, RBC 3.44 L, MCV 87.9, MCH 28.7, RDW 18.0 H, MPV 8.6, Gran % 85.8 H, Lymphocytes % 8.1 L, Monocytes % 5.9, Eosinophils % 0.1, Basophils % 0.1, Absolute Granulocytes 11.9 H, Absolute Lymphocytes 1.1 L , Absolute Monocytes 0.8 H, Absolute Eosinophils 0, Absolute Basophils 0, PUBS MCHC 32.6 L, Phenytoin 3.3 L Microbiology 02/18 0200 BLOOD: Blood Culture - RECD 02/18 0156 BLOOD: Blood Culture - RECD 02/17 2349 URINE ROUT: Urine Culture - RECD Initial ED EKG: nonspecific ST T wave chg, SINUS TACHYCARDIA, PVC Prior EKG: unchanged (JAREN TOMLINSON DO) Diagnostic Imaging: Viewed by Me: CT Scan. Discussed w/RAD: CT Scan. Radiology Impression: abd/pelvic ct.... mass noted... full report below. Comments: PATIENT: JUANY GONZALEZ PRESENT AGE: 61 PATIENT ACCOUNT NO: [id number] : 54 LOCATION: [facility] ORDERING PHYSICIAN: JAREN TOMLINSON DO SERVICE DATE: 02/17/17 EXAM TYPE: CAT - CT ABD & PELVIS W/O IV CONTRAS EXAMINATION: CT ABDOMEN AND PELVIS WITHOUT CONTRAST CLINICAL INFORMATION: Abdominal distention. COMPARISON: 02/10/2017. TECHNIQUE: Multidetector volumetric imaging was performed from the superior aspect of the liver through the pubic symphysis. Sagittal and coronal reformatted images were obtained on the technologist's workstation. DLP: 655 mGy-cm FINDINGS: Increasing bilateral pleural effusions with atelectasis, infiltrate less likely although not excluded. A large heterogeneous pelvic mass measuring approximately 20 cm in maximal craniocaudal dimension appears largely unchanged compared with the previous exam. Air within or anterior to the mass appears to have decreased in the interval. Clinical correlation for peritoneal signs is recommended. Just superior to the lesion appears to be some mildly distended colonic bowel loops however no underlying obstruction is suggested. There is a suture line in the right lower quadrant again noted suggesting previous partial bowel resection. There is a small amount of intraperitoneal free fluid in the deep pelvis and right upper quadrant adjacent to the liver No definite liver lesions are identified on this noncontrast examination, there is a question of scarring inferiorly in the right lobe. Gallbladder is not visualized, has this been removed or is a contracted? Mild to moderate left-sided hydroureteronephrosis is again seen. Urinary bladder is collapsed containing a Sanchez catheter. Moderate sized hiatal hernia is again noted. No bowel obstruction is seen. Indeterminate intraperitoneal versus retroperitoneal mass just inferior to the left kidney and in the right lower quadrant appear unchanged. These may be lymph nodes. No aggressive osseous lesions are seen. There is a mild compression deformity in the L4 vertebra assuming 5 lumbar type vertebra. IMPRESSION: Increasing bilateral pleural effusions and atelectasis and/or pneumonia. Increasing anasarca is also suggested. Findings appear otherwise largely unchanged with a large gas containing pelvic mass with slight decreased in the amount of air associated with this mass or intraperitoneal free air. Postsurgical changes in the right lower quadrant are again noted. Gallbladder is not definitively identified either contracted or previously removed. DICTATED BY: JOIE WAYNE MD DATE/TIME DICTATED:02/17/172230 VISUAL COMMUNICATIONS INSTRUCTOR:KAILASH DATE/TIME TRANSCRIBED:02/17/172230 CONFIDENTIAL, DO NOT COPY WITHOUT APPROPRIATE AUTHORIZATION. <Electronically signed in Other Vendor System> SIGNED BY: JOIE WAYNE MD [id number] (CHANDLER SOSA,SREEDHAR Hernandez) Departure Departure Disposition: STILL A PATIENT Condition: Stable Referrals: GARRETT MACIAS MD (PCP/Family) Departure Forms: Customer Survey General Discharge Information Comments 02/17/[address] Aragon who agrees with plan of care. Will complete workup and and reconsult with him. Patient was signed out to Dr. Ingram at 10 PM. (JAREN TOMLINSON DO) Departure Clinical Impression Primary Impression: Tachycardia Secondary Impressions: Dyspnea, Sepsis, Urinary tract infection Comments 02/18/17, 1:02am... discussed with surgical team, Dr. Forrester. PA will evaluate. Discussed also with Dr. Isaac who confers with plan. Admission Note Spoke With: SANDRA SOSA,FELISHA Documentation of Exam: Documentation of any treatments & extenuating circumstances including Concerns Regarding Discharge (functional status, medication knowledge or non-compliance, living conditions, etc.) that warrant an admission rather than observation: pt with multiple medical issues.... abd mass, tachycardia, uti, sepsis... ecoli was pansensitive. ?if vre was colonization vs infection. Gave ceftriaxone. Will defer to ID if patient needs Vancomycin. Pt cleared by surgery. Would consult cards in AM as well, possibly urology. (CHANDLER SOSA,SREEDHAR Hernandez) Critical Care Note Critical Care Note Critical Care Time: 30-74 min (JAREN TOMLINSON DO)
--- NOTE | 2017-02-17 21:10 | NUR ---
PT [facility] FROM [facility]. PER EMS PT WAS ADMITTED HERE RECENTLY FOR TACHYCARDIA, PT LEFT ON PRESCRIPTION FOR CARDIZEM AND LOPRESSOR. PER [facility] STAFF PT HAS BEEN COMPLIANT WITH MEDICATIONS BUT HEART RATE WILL NOT DECREASE. PT ARRIVES SINUS TACH AT 118 ON BICYCLE FITTER. PT HAS HX OF CONFUSION (BASELINE). PT ARRIVES ALERT, ORIENTED TO PERSON AND PLACE. PT HAS DOUBLE LUMEN CATHETER ON RCW, AND ARRIVES WITH ACE IN PLACE.
--- NOTE | 2017-02-17 21:11 | NUR ---
AT BEDSIDE FOR PT EVAL, EKG IN PROGRESS
--- NOTE | 2017-02-17 22:30 | NUR ---
IV ATTMPTED BY MULTIPLE STAFF, CHARGE NURSE MADE AWARE.
--- NOTE | 2017-02-17 22:50 | NUR ---
BP 113/72. PER IV METOPROLOL TO BE DC, AWAITING FUTURE ORDERS
[2017-02-17 22:54] LABS: ABSOLUTE BASOPHIL COUNT 0 /CUMM (0.0-0.2); ABSOLUTE EOSINOPHIL COUNT 0 /CUMM (0.0-0.7); ABSOLUTE GRANULOCYTE CT 11.9 /CUMM (1.4-6.5); ABSOLUTE LYMPH COUNT 1.1 /CUMM (1.2-3.4); ABSOLUTE MONOCYTE COUNT 0.8 /CUMM (0.10-0.60); BASOPHIL % 0.1 % (0.0-2.0); EOSINOPHIL % 0.1 % (0-5); GRANULOCYTE % 85.8 % (42.2-75.2); HEMATOCRIT 30.2 % (42-52); MEAN CORPUSCULAR HGB 28.7 PG (27.0-31.0); MEAN CORPUSCULAR HGB CONC 32.6 G/DL (33.0-37.0); MEAN CORPUSCULAR VOLUME 87.9 FL (80.0-94.0); MEAN PLATELET VOLUME 8.6 FL (7.4-10.4); PLATELET COUNT 414 /CUMM (130-400); RED BLOOD CELL CT 3.44 /CUMM (4.70-6.10); WHITE BLOOD CELL COUNT 13.9 /CUMM (4.8-10.8)
--- NOTE | 2017-02-17 22:56 | CT SCAN REPORT ---
EXAMINATION: CT ABDOMEN AND PELVIS WITHOUT CONTRAST CLINICAL INFORMATION: Abdominal distention. COMPARISON: 02/10/2017. TECHNIQUE: Multidetector volumetric imaging was performed from the superior aspect of the liver through the pubic symphysis. Sagittal and coronal reformatted images were obtained on the technologist's workstation. DLP: 655 mGy-cm FINDINGS: Increasing bilateral pleural effusions with atelectasis, infiltrate less likely although not excluded. A large heterogeneous pelvic mass measuring approximately 20 cm in maximal craniocaudal dimension appears largely unchanged compared with the previous exam. Air within or anterior to the mass appears to have decreased in the interval. Clinical correlation for peritoneal signs is recommended. Just superior to the lesion appears to be some mildly distended colonic bowel loops however no underlying obstruction is suggested. There is a suture line in the right lower quadrant again noted suggesting previous partial bowel resection. There is a small amount of intraperitoneal free fluid in the deep pelvis and right upper quadrant adjacent to the liver No definite liver lesions are identified on this noncontrast examination, there is a question of scarring inferiorly in the right lobe. Gallbladder is not visualized, has this been removed or is a contracted? Mild to moderate left-sided hydroureteronephrosis is again seen. Urinary bladder is collapsed containing a Sanchez catheter. Moderate sized hiatal hernia is again noted. No bowel obstruction is seen. Indeterminate intraperitoneal versus retroperitoneal mass just inferior to the left kidney and in the right lower quadrant appear unchanged. These may be lymph nodes. No aggressive osseous lesions are seen. There is a mild compression deformity in the L4 vertebra assuming 5 lumbar type vertebra. IMPRESSION: Increasing bilateral pleural effusions and atelectasis and/or pneumonia. Increasing anasarca is also suggested. Findings appear otherwise largely unchanged with a large gas containing pelvic mass with slight decreased in the amount of air associated with this mass or intraperitoneal free air. Postsurgical changes in the right lower quadrant are again noted. Gallbladder is not definitively identified either contracted or previously removed.
--- NOTE | 2017-02-17 22:56 | NUR ---
PT BP 112/70. HR 111 ON CIRCLE BEVELER. PT MEDICATED WITH 10MG CARDIZEM PER EMAR
--- NOTE | 2017-02-17 22:56 | RADIOLOGY REPORT ---
EXAMINATION: XR PORTABLE CHEST CLINICAL INFORMATION: Short of breath, evaluate for pneumonia. COMPARISON: 02/10/2017, 12/24/2016. TECHNIQUE: Portable frontal view of the chest was obtained. Exam is not labeled as erect or supine. FINDINGS: The cardiomediastinal silhouette is unremarkable. There is been continued decrease in volumes to the lungs bilaterally with increasing pleural effusions and basilar atelectasis again suggested. A developing of cephalization of the pulmonary vasculature and pulmonary edema is not entirely excluded. No pneumothorax is seen. Included osseous structures appear largely unremarkable. IMPRESSION: Increasing effusions and atelectasis, questionable developing pulmonary edema versus infiltrate in the left parahilar greater than right side. Clinical correlation recommended.
[2017-02-17 23:00] LABS: PT 13.2 SEC (9.4-12.5)
--- NOTE | 2017-02-17 23:11 | NUR ---
PT BP 98/68. MD AWARE. PER SECOND ADMINISTRATION OF CARDIZEM TO BE HELD. NO FLUIDS ORDERED AT THIS TIME, WILL CTM.
--- NOTE | 2017-02-17 23:51 | NUR ---
URINE TRIO OBTAINED AND SENT TO LAB
--- NOTE | 2017-02-18 01:21 | NUR ---
PT ASLEEP AT THIS TIME W/RR NOTED. PT REMAINS SINUS TACH ON MEDICAL LAB SCIENTIST AT 112. PT DENIES ANY CP/SOB. SIDE RAILS REMAIN UPRIGHT, CALL PAYNE WITHIN REACH. LIGHTS DIMMED FOR COMFORT. WILL CTM.
--- NOTE | 2017-02-18 01:48 | NUR ---
REPORT GIVEN TO IVAN ZAYAS
--- NOTE | 2017-02-18 01:56 | NUR ---
PT BED ASSIGNMENT 175-1
--- NOTE | 2017-02-18 02:05 | NUR ---
SPOKE W/ TELE HOUSE STAFF (ZBIGNIEW), PER ZBIGNIEW PICC LINE PLACEMENT CONFIRMED VIA XRAY DONE AT [facility] ON 02/10/17. ZBIGNIEW WILL SPEAK W/ TELE STAFF TO INFORM.
--- NOTE | 2017-02-18 02:17 | NUR ---
SURGICAL PA AT BEDSIDE FOR CONSULT
--- NOTE | 2017-02-18 02:40 | History & Physical ---
ZBIGNIEW CAMEJO MD 02/18/17 0239: General Information and HPI MD Statement: I have seen and personally examined JUANY GONZALEZ and documented this H&P. The patient is a 61 year old M who presented with a patient stated chief complaint of tachycardia. Source of Information: patient, old records Exam Limitations: poor historian History of Present Illness: Mr. 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 According to the patient, this afternoon he noted the sudden onself of tachycardia. This came on suddenly, occurred while he was laying in bed, and subsided after about 2-3 minutes. During this time, he noted acute onset of shortness of breath and the feeling that he "couldn't take a full breath". There were about 4 total episodes of tachycardia that resolved spontaneously before patient was transferred to [facility] for further management. He has experienced these symptoms previously, the most notable prior to his last admission on 02/10. During that admission, he was diagnosed with paroxysmal SVT and multifocal atrial tachycardia. While the episodes of tachycardia occur, he also notes substernal chest discomfort that does not radiate and is described as "heaviness ". Currently, patient denies fever, chills, dizziness, chest pain, palpitations, shortness of breath, abdominal pain, nausea, vomiting or dysuria. Of note, patient had discussion with House Staff on admission regarding his code status. Previously, he was a DNR/DNI. However, he would like to change his code status to FULL and will therefore be a FULL CODE during this admission, In regards to the pseudomyxoma perotonei, patient has been worked up at and was advised to follow up with Dr. Lakeshia MD for further management of his abdominal tumor. Patient has a scheduled appointment there next week. He is currently on TPN via right upper extremity PICC line. Allergies/Medications Allergies: Coded Allergies: NO KNOWN ALLERGIES (01/11/14) Home Med list Acetaminophen (8 Hour) 650 MG TABLET.ER 1 TAB PO Q4H PRN PAIN/TEMP/> 101 ( Reported) Acetaminophen (Acephen) 650 MG SUPP.RECT 1 SUPP WY Q4H PRN PAIN/TEMP>101 ( Reported) Albuterol Sulfate 2.5 MG/3 ML (0.083 %) VIAL.NEB 1 Vial INH/BRIT Q6H PRN SOB ( Reported) Bisacodyl 10 MG SUPP.RECT 1 SUP RC DAILY PRN CONSTIPATION (Reported) Diltiazem HCl (Diltiazem 12HR ER) 90 MG CAP.ER.12H 180 MG PO BID increase heart rate Enoxaparin Sodium (Lovenox) 100 MG/ML SYRINGE 100 MG SC Q12H BLOOD THINNER ( Reported) Ferrous Sulfate 325 MG (65 MG IRON) TABLET.DR 1 TAB PO DAILY anemia Folic Acid 1 MG TABLET 1 TAB PO DAILY SUPPLEMENT (Reported) Levetiracetam (Keppra) 1,000 MG TABLET 1 TAB PO Q12H seizure prophylaxis Loperamide HCl (Imodium A-D) 2 MG TABLET 1 TAB PO Q6H PRN LOOSE STOOL ( Reported) Magnesium Hydroxide (Milk Of Magnesia) 400 MG/5 ML ORAL.SUSP 30 ML PO DAILY PRN CONSTIPATION (Reported) Magnesium Oxide 400 MG TABLET 400 MG PO BID hypomagnesemia Metoprolol Tartrate 50 MG TABLET 1 TAB PO BID high heart rate Multivitamin (Daily Multiple Vitamin) 1 EACH TABLET 1 TAB PO DAILY SUPPLEMENT (Reported) Na Phos,M-B/Na Phos,Di-Ba (Fleet Enema) 19 GRAM-7 GRAM/118 ML ENEMA 1 E RC DAILY PRN CONSTIPATION (Reported) Omeprazole 40 MG CAPSULE.DR 1 CAP PO DAILY acidity Ondansetron HCl 4 MG TABLET 1 TAB PO Q6P PRN N/V (Reported) Oxybutynin Chloride 5 MG TABLET 1 TAB PO DAILY (Reported) Phenytoin Sodium Extended 100 MG CAPSULE 2 CAP PO BID SEIZURES (Reported) Polyethylene Glycol 3350 (Miralax) 17 GRAM POWD.PACK 1 PAC PO DAILY GI ( Reported) dissolve in water Sertraline HCl 25 MG TABLET 25 MG PO DAILY mental health [TPN] TPN (Reported) Trazodone HCl 50 MG TABLET 1 TAB PO QHS INSOMNIA (Reported) Compliance With Home Meds: GOOD Past History Travel History Traveled to [place] past 21 day No Medical History Neurological: seizure, childhood encephalitis EENT: NONE Cardiovascular: syncope (possible unwitnessed) Respiratory: pulmonary embolism (06/2014) Gastrointestinal: GERD (mild), hiatal hernia Hepatic: NONE Renal: benign prost hyperplasia Musculoskeletal: osteopenia; TL compression fractures Psychiatric: NONE Endocrine: osteopenia Blood Disorders: anemia, PE (06/2014) Cancer(s): NONE RACK CARRIER/Reproductive: NONE History of MRSA: No History of VRE: Yes History of CDIFF: No Surgical History Surgical History: colon resection (s/p right hemicolectomy 12/2016), wrist surgery Past Family/Social History Family History Relations & Conditions if any FATHER, , Age 40-50; Cause: Cancer of unknown origin. MOTHER, , Age 50-60; Cause: Cancer of unknown origin. BROTHER ([employer]). Relation not specified for: *No pertinent family history Psychosocial History Services at Home: None Primary Language: Russian Living Will? yes Power of Cook Pressure/HCP? unknown Name of POA/HCP: brother Functional Ability ADLs Independent: dressing, eating, toileting, bathing. Ambulation: independent IADLs Independent: shopping, housework, finances, food prep, telephone, transportation , medication admin. Review of Systems Review of Systems Constitutional: Denies: chills, fever, weakness. EENTM: Denies: blurred vision, visual changes, hearing changes, nasal congestion. Cardiovascular: Reports: chest pain, palpitations, peripheral edema. Respiratory: Reports: short of breath. Denies: cough, wheezing. GI: Reports: distention. Denies: abdominal pain, bloating, constipation, diarrhea, nausea, vomiting. Genitourinary: Denies: dysuria, hematuria. Musculoskeletal: Denies: back pain, joint pain. Skin: Denies: erythema, jaundice. Neurological/Psychological: Denies: confusion, headache, numbness. Hematologic/Endocrine: Denies: bruising, bleeding. Immunologic/Allergic: Denies: splenectomy. All Other Systems: Reviewed and Negative Exam & Diagnostic Data Last 24 Hrs of Vital Signs/I&O Vital Signs Date Time Temp Pulse Resp B/P B/P Pulse O2 O2 Flow FiO2 Mean Ox Delivery Rate 02/18 0345 97.8 106 20 92/60 90 Room Air 02/18 0125 112 104/71 94 Room Air 02/18 0028 111 101/71 02/17 2338 109 99/69 94 Room Air 02/17 2309 98/68 02/17 2256 98.2 111 17 112/72 02/17 2256 111 112/72 02/17 2250 111 113/72 02/17 2110 98.2 119 17 134/77 94 Room Air Intake & Output 02/18 0800 02/18 0000 02/17 1600 Intake Total Output Total Balance Patient 150 lb Weight Weight Estimated Measurement Method Physical Exam General Appearance Alert, Cooperative, No Acute Distress Skin Midline abdominal incision Skin Temp/Moisture Exam: Warm/Dry HEENT Atraumatic, PERRLA, EOMI, Mucous Membr. moist/pink Neck Supple, +2 Carotid Pulse wo Bruit Lymphatic Cervical nl Cardiovascular Normal S1, Normal S2, No Murmurs, Tachycardia Lungs Normal Air Movement, No respiratory distress Abdomen Distended, decreased bowel sounds, firm to palpation and tender to periumbilical/suprapubic area Neurological Normal Speech, Normal Tone Extremities 2-3+ pitting edema of bilateral lower extremities Vascular Pulses Symmetrical Last 24 Hrs of Labs/Yuri: Laboratory Tests 02/17/179: Urine Color YEL, Urine Clarity CLDY H, Urine pH 6.0, Ur Specific [place] 1.025, Urine Protein 100 H, Urine Ketones NEG, Urine Nitrite NEG, Urine Bilirubin NEG, Urine Urobilinogen 1.0, Ur Leukocyte Esterase LARGE H, Ur Microscopic SEDIMENT EXAMINED, Urine RBC >75 H, Urine WBC PACKD H, Urine Crystals 1+ [place] OX H, Urine Bacteria PACKD H, Urine Hemoglobin LARGE H, Urine Glucose NEG 02/17/17 2244: Anion Gap 7, Estimated GFR > 60, BUN/Creatinine Ratio 61.7 H, Glucose 109 H, Calcium 7.9 L, Total Bilirubin 0.3, AST 86 H, ALT 108 H, Alkaline Phosphatase 282 H, Troponin I 0.04, Xcq-[id number] Pept 3630 H, Total Protein 5.8 L, Albumin 2.1 L, Globulin 3.7, Albumin/Globulin Ratio 0.6 L, PT 13.2 H, INR 1.26 H, CBC w Diff NO MAN DIFF REQ, RBC 3.44 L, MCV 87.9, MCH 28.7, RDW 18.0 H, MPV 8.6, Gran % 85.8 H, Lymphocytes % 8.1 L, Monocytes % 5.9, Eosinophils % 0.1, Basophils % 0.1, Absolute Granulocytes 11.9 H, Absolute Lymphocytes 1.1 L , Absolute Monocytes 0.8 H, Absolute Eosinophils 0, Absolute Basophils 0, PUBS MCHC 32.6 L, Phenytoin 3.3 L Microbiology 02/18 0200 BLOOD: Blood Culture - RECD 02/18 0156 BLOOD: Blood Culture - RECD 02/17 2349 URINE ROUT: Urine Culture - RECD Diagnostic Data EKG Results Sinus tachycardia, HR 119, PVCs apprecaited, QTC 375, WY 136. CXR Results FINDINGS: The cardiomediastinal silhouette is unremarkable. There is been continued decrease in volumes to the lungs bilaterally with increasing pleural effusions and basilar atelectasis again suggested. A developing of cephalization of the pulmonary vasculature and pulmonary edema is not entirely excluded. No pneumothorax is seen. Included osseous structures appear largely unremarkable. IMPRESSION: Increasing effusions and atelectasis, questionable developing pulmonary edema versus infiltrate in the left parahilar greater than right side. Clinical correlation recommended. Other Results Abdominal/Pelvis CT: IMPRESSION: Increasing bilateral pleural effusions and atelectasis and/or pneumonia. Increasing anasarca is also suggested. Findings appear otherwise largely unchanged with a large gas containing pelvic mass with slight decreased in the amount of air associated with this mass or intraperitoneal free air. Postsurgical changes in the right lower quadrant are again noted. Gallbladder is not definitively identified either contracted or previously removed. Assessment/Plan Assessment: Mr. 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 In the ED: Vital signs showed T 98.2, HR 119, RR 17, BP 134/77 (dropped to 99/69 after giving cardizem push), 94% on RA. Labs were significant for WBC 13.9, 85.8% granulocytes, 0 bands, H&H 9.9/30.2, Plt 414, Na 135, K 3.7, Cl 102, HCO3 25, BUN/cre 37/0.6, Glu 109, AST 108, ALT 282, Trop 0.04, proBNP 3630, INR 1.26, phenytoin level 3.3 (low). UA was cloudy, 100 protein, large leukocyte esterase, >75 RBCs, packed WBCs, packed bacteria and large Hgb. CXR was obtained and showed increasing effusions and atelecasis, pulmonary edema vs infiltrate left parahilar greater than right. Abdominal/Pelvis CT showed increasing anasarca, unchanged large gas containing pelvic mass with slight decrease in amount of air. RLQ post-surgical changes. GB not definitively defined. Patient is placed in OBSERVATION on the telemetry floor and the following is the management: 1. 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 Abnormal UA * UA was cloudy, 100 protein, large leukocyte esterase, >75 RBCs, packed WBCs, packed bacteria and large Hgb * Last admission noted similar findings with suggestion that this represented colonization- antibiotics thus discontinued at that point * Patient has previously grown VRE (on several cultures) and providencia * As patient afebrile, asymptomatic and WBC not increased from last documented value, will hold off on antibiotics at this time * Follow up blood and urine cultures * Monitor for fevers, consider initiating empiric antibiotic coverage if patient spikes a fever 3. Pseudomyxoma peritonei * Patient s/p failed resection with colectomy in December of this year * Surgery consult placed, suggest no surgical intervention required at this time * Follow up with Dr. Hitesh MD in AM * Patient to follow up with [facility] surgical team upon discharge for further management of this issue * Keep patient NPO and continue TPN via PICC line 4. History of PE on Lovenox * Continue lovenox SC 90 mg Q12H 5. Seizure disorder on Dilantin and Keppra * Continue both Dilantin 200 mg PO BID and Keppra 1000 mg PO BID * Note, dilantin level low on admission to 3.3 and patient notes a recent change in dilantin dose 6. GERD * Continue prilosec 40 mg PO daily 7. Deperssion * Continue sertraline 25 mg PO daily, trazodone 50 mg QPM FULL CODE DVTP: SC Lovenox Diet: NPO with TPN As Ranked By This Provider Problem List: 1. Tachycardia 2. Bilateral lower extremity edema 3. Anemia of chronic disease 4. History of pulmonary embolism 5. Pseudomyxoma peritonei Observation Initial Note - I have personally examined JUANY GONZALEZ on 02/18/17 at 0410. The disposition of JUANY GONZALEZ is uncertain at this time and before a determination can be made, he requires a period of observation for the following reasons: Patient will require continuous telemetry monitoring, trending of troponins/EKG, optimization of cardiac medications to improve tachycardia, cardiology consult and surgical follow up, all of which can likely occur in 24- 48 hours under observation. Core Measures/Miscellaneous Acute Coronary Syndrome ACS Diagnosis: No Cerebrovascular Accident CVA/TIA Diagnosis: No Congestive Heart Failure CHF Diagnosis: No VTE (View Protocol) VTE Risk Factors: Acute medical illness, Age > 40, Immobility, paresis [facility] prophylaxis d/t: No contraindications No VTE Pharm Prophylaxis d/t: No contraindications VTE Diagnosis: No VTE Type: NONE VTE Confirmed by (Test): NONE Sepsis (View Protocol) Severe Sepsis Present: No Septic Shock Septic Shock Present: No Miscellaneous Documentation Attending Case Discussed With: FELISHA FLORES MD Primary Care Physician: GARRETT MACIAS MD Patient sees these Specialists Dr. Asher, [facility] surgery Cardiology Level of Patient Care: Telemetry KOKI MAIER 02/18/17 0429: Resident Review Statement Resident Statement: discussed with audit practice intern, agreed with audit practice intern Other Findings: Patient is 61 yearsold male with PMH as above was sent by senior care with chief complain of palpitations and tachycardia. Patient states that he was resting in his room when he noticed that his heart is racing. It was accompanied by chest pressure and difficulty breathing. Patient stated that the pain lasted for a short time and kept recurring after every few minutes. Patient states that the chest pressure was also intermittent. Patient denied any lightheadedness, dizziness or LOC. Patient has a follow up appointment with his surgeon at [place] next week. He only reported slight discomfort of abdomen. Patient had recent a echocardiogram in November 2016 with normal EF Vital signs showed T 98.2, HR 119, RR 17, BP 134/77 (dropped to 99/69 after giving cardizem push), 94% on RA. Labs were significant for WBC 13.9, 85.8% granulocytes, 0 bands, H&H 9.9/30.2, Plt 414, Na 135, K 3.7, Cl 102, HCO3 25, BUN/cre 37/0.6, Glu 109, AST 108, ALT 282, Trop 0.04, proBNP 3630, INR 1.26 Assessment and plan Will admit the patient as observation on telemetry floor Will monitor for tachycardia and get cardiology consult in am Will increase his metoprolol from 50 mg BID to 75 mg BID continue diltiazem at the same dose of 180 mg BID Patient is on lovenox for history of PE, since his weight has changed since the previous admission, will adjust his lovenox dose from 100 mg BID to 90 mg BID Patient was evaluated by surgical PA, no surgical recommendations at this point. Patient continued on same dose of TPN per previous admission. Patient will be continued on his chronic meds including Zoloft, trazodone, Phentoyn, keppra. Phynetoin level is subtherapeutic, consider increment in dose. Patient has abnormal UA with VRE colonization, he got one dose of ceftriaxone in ER, will hold off on antibiotic for now. Patient has underlying pelvic mass that needs resection with a possible urinary fistula. Patient had a follow up appointment with [place] surgery next week. Patient earlier was DNR/DNI however now he wants to change to code status to Full code SANDRA SOSA, [facility] 02/18/17 0556: Attending MD Review Statement Attending Statement Attending MD Statement: examined this patient, discuss w/resident/PA/[employer] MEMBER, agreed w/resident/PA/[employer] MEMBER Attending Assessment/Plan: 61 yo M with h/o seizure disorder 2/2 childhood encephalitis, PE on lovenox, depression, GERD, chronic KANU, abdominopelvic mass s/p exploratory laparotomy with right hemicolectomy for ischemic bowel, however tumor resection was not done due to inability to perform radical resection of bladder, he was transferred to [place] and is awaiting tumor resection (pseudomyxoma peritoniei) by Dr. Asher. He is currently on TPN via right PICC line. Patient was recently admitted to [facility] (02/10 02/15) for paroxysmal SVT and MAT that was treated with CCB/BB and returned to [facility]. Today, he was sent in for chest heaviness, suddent onset palpitations with HR upto 130's and dyspnea. Vitals: HR was in 120's on ER arrival, received cardizem 10 mg IV after which patient transiently dropped his BP from 134/77 --> 112/72 --> 98/68. Tachycardia slightly better at 100-110's. Labs: WBC 13.9, H/H 9.9/30.2, INR 1.26, AST 86, ALT 108, trop neg. UA cloudy, large LE, packed WBC, RBC > 75. Phenytoin 3.3 ( subtherapeutic). CT abd/pelvis: increasing b/l pleural effusions, ansarca, large gas containing pelvic mass with slight decreased amount of air associated with mass. CXR: increasing effusions ?developing pneumonia. EKG: sinus tachycardia, PVCs. Echo (2017): EF 55-60%. 1. Palpitations, sinus tachycardia. Precipitating factors: Patient does have an underlying pelvic mass that needs resection with a possible urinary fistula from the pelvic mass causing positive UA with UC for Ecoli/VRE. Abnormalities of gallbladder need to be investigated with MRCP/MRI given elevated liver enzymes and leukocytosis, but patient refused this during the most recent admission. Tele 23 Obs, we will increase his metoprolol to 75 BID and continue cardizem 180 BID, monitor BP. Serial EKG and troponin, obtain Cardio consult in AM. Surgery consult was placed, Dr. Proctor to see patient in AM. Surgical PA evaluated patient in ER, no acute intervention, patient needs to follow up at [place] for resection of pelvic mass. Continue TPN from AM. He has chronic price and positive UA is likely colonization, hence will monitor off antibiotics. CXR/CT is suggestive of b/l pleural effusion with possible pneumonia. Again, patient denies cough/phlegm , hence will monitor off abx. DVT ppx Lovenox. Full code (patient had a DNR on chart, however he changed his mind and wanted to be FC).
--- NOTE | 2017-02-18 02:50 | NUR ---
ATTEMPTED TO PROVIDE QUINTON CARE TO PT. PT DECLINED, STATING "I DID NOT HAVE A BOWEL MOVEMENT AND I DO NOT WANT TO BE TOUCHED RIGHT NOW". HOUSE STAFF AWARE.
--- NOTE | 2017-02-18 02:57 | Cons- General Surgery ---
General Information and HPI Consulting Request Date of Consult: 02/18/17 Requested By: SANDRA SOSA,FELISHA Reason for Consult: abdominal mass History of Present Illness: 61M sent in from [facility] for tachycardia evaluation. Multiple medical problems, and known to Dr. Proctor and surgical service for large pelvic mass with failed resection December 2016. Was previously transferred to [facility] for further workup and treatment of this mass, though per pt, he never was seen as an outpt by this [facility] oncologist (?Dr. Asher). Per pt, denies abd pain, n or v. Offers no complaints other than decreased appetite. Has been on TPN at [facility] and taking little PO. +BM and flatus. Sanchez in place (chronic) Recently DC'ed from medical service here at to [facility] on 02/15/17. Allergies/Medications Allergies: Coded Allergies: NO KNOWN ALLERGIES (01/11/14) Home Med List: Acetaminophen (8 Hour) 650 MG TABLET.ER 1 TAB PO Q4H PRN PAIN/TEMP/> 101 ( Reported) Acetaminophen (Acephen) 650 MG SUPP.RECT 1 SUPP [place] Q4H PRN PAIN/TEMP>101 ( Reported) Albuterol Sulfate 2.5 MG/3 ML (0.083 %) VIAL.NEB 1 Vial INH/BRIT Q6H PRN SOB ( Reported) Bisacodyl 10 MG SUPP.RECT 1 SUP RC DAILY PRN CONSTIPATION (Reported) Diltiazem HCl (Diltiazem 12HR ER) 90 MG CAP.ER.12H 180 MG PO BID increase heart rate Enoxaparin Sodium (Lovenox) 100 MG/ML SYRINGE 100 MG SC Q12H BLOOD THINNER ( Reported) Ferrous Sulfate 325 MG (65 MG IRON) TABLET.DR 1 TAB PO DAILY anemia Folic Acid 1 MG TABLET 1 TAB PO DAILY SUPPLEMENT (Reported) Levetiracetam (Keppra) 1,000 MG TABLET 1 TAB PO Q12H seizure prophylaxis Loperamide HCl (Imodium A-D) 2 MG TABLET 1 TAB PO Q6H PRN LOOSE STOOL ( Reported) Magnesium Hydroxide (Milk Of Magnesia) 400 MG/5 ML ORAL.SUSP 30 ML PO DAILY PRN CONSTIPATION (Reported) Magnesium Oxide 400 MG TABLET 400 MG PO BID hypomagnesemia Metoprolol Tartrate 50 MG TABLET 1 TAB PO BID high heart rate Multivitamin (Daily Multiple Vitamin) 1 EACH TABLET 1 TAB PO DAILY SUPPLEMENT (Reported) Na Phos,M-B/Na Phos,Di-Ba (Fleet Enema) 19 GRAM-7 GRAM/118 ML ENEMA 1 E RC DAILY PRN CONSTIPATION (Reported) Omeprazole 40 MG CAPSULE.DR 1 CAP PO DAILY acidity Ondansetron HCl 4 MG TABLET 1 TAB PO Q6P PRN N/V (Reported) Oxybutynin Chloride 5 MG TABLET 1 TAB PO DAILY (Reported) Phenytoin Sodium Extended 100 MG CAPSULE 2 CAP PO BID SEIZURES (Reported) Polyethylene Glycol 3350 (Miralax) 17 GRAM POWD.PACK 1 PAC PO DAILY GI ( Reported) dissolve in water Sertraline HCl 25 MG TABLET 25 MG PO DAILY mental health [TPN] TPN (Reported) Trazodone HCl 50 MG TABLET 1 TAB PO QHS INSOMNIA (Reported) Past History Medical History Neurological: seizure, childhood encephalitis EENT: NONE Cardiovascular: syncope (possible unwitnessed) Respiratory: pulmonary embolism (06/2014) Gastrointestinal: GERD (mild), hiatal hernia, large pelvic mass Hepatic: NONE Renal: benign prost hyperplasia Musculoskeletal: osteopenia; TL compression fractures Psychiatric: NONE Endocrine: osteopenia Blood Disorders: anemia, PE (06/2014) Cancer(s): NONE 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 MOTHER, , Age 50-60; Cause: Cancer of unknown origin. BROTHER ([employer]). Relation not specified for: *No pertinent family history Psychosocial History Services at Home: None Primary Language: Kosovan Living Will? yes Power of Travel Consultant/HCP? unknown Name of POA/HCP: brother Functional Ability ADLs Independent: dressing, eating, toileting, bathing. Ambulation: independent IADLs Independent: shopping, housework, finances, food prep, telephone, transportation , medication admin. Exam & Diagnostic Data Vital Signs and I&O Vital Signs Date Time Temp Pulse Resp B/P B/P Pulse O2 O2 Flow FiO2 Mean Ox Delivery Rate 02/18 0125 112 104/71 94 Room Air 02/18 0028 111 101/71 02/17 2338 109 99/69 94 Room Air 02/17 2309 98/68 06/21 2256 98.2 111 17 112/72 02/18 2256 111 112/72 02/17 2250 111 113/72 02/17 2110 98.2 119 17 134/77 94 Room Air Intake & Output 02/18 0800 02/18 0000 02/17 1600 02/17 0800 02/17 0000 02/16 1600 Intake Total Output Total Balance Patient 150 lb Weight Weight Estimated Measurement Method Physical Exam: GEN: NAD CARD: s1s2 tachy PULM: decreased bl bases ABD: firm, distended, palpable mass, ttp, no rebound/guarding, well healed surgical incision EXT: +edema bl le Last 24 Hours of Labs: Laboratory Tests 02/17 02/17 2349 2244 Chemistry Sodium (137 - 145 mmol/L) 135 L Potassium (3.5 - 5.1 mmol/L) 3.7 Chloride (98 - 107 mmol/L) 102 Carbon Dioxide (22 - 30 mmol/L) 25 Anion Gap (5 - 16) 7 BUN (9 - 20 mg/dL) 37 H Creatinine (0.7 - 1.2 mg/dL) 0.6 L Estimated GFR (>60 ml/min) > 60 BUN/Creatinine Ratio (7 - 25 %) 61.7 H Glucose (65 - 99 mg/dL) 109 H Calcium (8.4 - 10.2 mg/dL) 7.9 L Total Bilirubin (0.2 - 1.3 mg/dL) 0.3 AST (17 - 59 U/L) 86 H ALT (21 - 72 U/L) 108 H Alkaline Phosphatase (< 127 U/L) 282 H Troponin I (<0.11 ng/ml) 0.04 Qdl-I-Tenfmpaygtp Pept (<125 pg/mL) 3630 H Total Protein (6.3 - 8.2 g/dL) 5.8 L Albumin (3.5 - 5.0 g/dL) 2.1 L Globulin (1.9 - 4.2 gm/dL) 3.7 Albumin/Globulin Ratio (1.1 - 2.2 %) 0.6 L Coagulation PT (9.4 - 12.5 SEC) 13.2 H INR (0.90 - 1.17) 1.26 H Hematology CBC w Diff NO MAN DIFF REQ WBC (4.8 - 10.8 /CUMM) 13.9 H RBC (4.70 - 6.10 /CUMM) 3.44 L Hgb (14.0 - 18.0 G/DL) 9.9 L Hct (42 - 52 %) 30.2 L MCV (80.0 - 94.0 FL) 87.9 MCH (27.0 - 31.0 PG) 28.7 RDW (11.5 - 14.5 %) 18.0 H Plt Count (130 - 400 /CUMM) 414 H MPV (7.4 - 10.4 FL) 8.6 Gran % (42.2 - 75.2 %) 85.8 H Lymphocytes % (20.5 - 51.1 %) 8.1 L Monocytes % (1.7 - 9.3 %) 5.9 Eosinophils % (0 - 5 %) 0.1 Basophils % (0.0 - 2.0 %) 0.1 Absolute Granulocytes (1.4 - 6.5 /CUMM) 11.9 H Absolute Lymphocytes (1.2 - 3.4 /CUMM) 1.1 L Absolute Monocytes (0.10 - 0.60 /CUMM) 0.8 H Absolute Eosinophils (0.0 - 0.7 /CUMM) 0 Absolute Basophils (0.0 - 0.2 /CUMM) 0 PUBS MCHC (33.0 - 37.0 G/DL) 32.6 L Toxicology Phenytoin (10.0 - 20.0 ug/mL) 3.3 L Urines Urine Color (YEL,AMB,STR) YEL Urine Clarity (CLEAR) CLDY H Urine pH (5.0 - 8.0) 6.0 Ur Specific [place] (1.001 - 1.035) 1.025 Urine Protein (NEG,<30 MG/DL) 100 H Urine Ketones (NEG) NEG Urine Nitrite (NEG) NEG Urine Bilirubin (NEG) NEG Urine Urobilinogen (0.1 - 1.0 EU/dl) 1.0 Ur Leukocyte Esterase (NEG) LARGE H Ur Microscopic SEDIMENT EXAMINED Urine RBC (0 - 5 /HPF) >75 H Urine WBC (0 - 2 /HPF) PACKD H Urine Crystals 1+ CA OX H Urine Bacteria (NEG/NONE) PACKD H Urine Hemoglobin (NEG) LARGE H Urine Glucose (N MG/DL) NEG Imaging Results: CT AP Dry: FINDINGS: Increasing bilateral pleural effusions with atelectasis, infiltrate less likely although not excluded. A large heterogeneous pelvic mass measuring approximately 20 cm in maximal craniocaudal dimension appears largely unchanged compared with the previous exam. Air within or anterior to the mass appears to have decreased in the interval. Clinical correlation for peritoneal signs is recommended. Just superior to the lesion appears to be some mildly distended colonic bowel loops however no underlying obstruction is suggested. There is a suture line in the right lower quadrant again noted suggesting previous partial bowel resection. There is a small amount of intraperitoneal free fluid in the deep pelvis and right upper quadrant adjacent to the liver No definite liver lesions are identified on this noncontrast examination, there is a question of scarring inferiorly in the right lobe. Gallbladder is not visualized, has this been removed or is a contracted? Mild to moderate left-sided hydroureteronephrosis is again seen. Urinary bladder is collapsed containing a Sanchez catheter. Moderate sized hiatal hernia is again noted. No bowel obstruction is seen. Indeterminate intraperitoneal versus retroperitoneal mass just inferior to the left kidney and in the right lower quadrant appear unchanged. These may be lymph nodes. No aggressive osseous lesions are seen. There is a mild compression deformity in the L4 vertebra assuming 5 lumbar type vertebra. IMPRESSION: Increasing bilateral pleural effusions and atelectasis and/or pneumonia. Increasing anasarca is also suggested. Findings appear otherwise largely unchanged with a large gas containing pelvic mass with slight decreased in the amount of air associated with this mass or intraperitoneal free air. Postsurgical changes in the right lower quadrant are again noted. Gallbladder is not definitively identified either contracted or previously removed. Assessment/Plan Assessment/Plan A: 61yoM with known large pelvic mass, sp failed resection with colectomy december 2016, with multiple medical problems, with no surgical intervention required at this time. P: ASIM Forrester. No surgical recommendations at this time. Pt known to Dr. Proctor and will be made aware of his admission to hospital. Consult Acknowledgment - Thank you for your consult request.
--- NOTE | 2017-02-18 03:13 | NUR ---
[facility] PREFORMED. PT CLEANED, LINENS REPLACED. BARRIER CREAM PLACED. PT REPOSITIONED FOR COMFORT.
[2017-02-18 03:45] VITALS: BP 92/60
[2017-02-18 08:29] VITALS: BP 106/60
--- NOTE | 2017-02-18 10:52 | PN- Att Addend ---
Attending Addendum Attending Brief Note Patient seen and examined. Plan of care discussed with the medical team and the patient. Available lab work and radiology test reports were reviewed. History and events surrounding the admission reviewed with family and the medical team. Patient's morning appears lethargic and pale. He reports right-sided neck pain. He also complaining of for his usual abdominal pain. network contract manager shows sinus tachycardia rate of 110. Vital Signs Date Time Temp Pulse Resp B/P B/P Pulse O2 O2 Flow FiO2 Mean Ox Delivery Rate 02/18 0951 106/62 02/18 0829 98.2 106 20 106/60 92 Room Air 02/18 0400 93 Room Air 02/18 0345 97.8 106 20 92/60 90 Room Air 02/18 0330 93 Room Air 02/18 0125 112 104/71 94 Room Air 02/18 0028 111 101/71 02/17 2338 109 99/69 94 Room Air 02/17 2309 98/68 02/17 2256 98.2 111 17 112/72 02/17 2256 111 112/72 02/17 2250 111 113/72 02/17 2110 98.2 119 17 134/77 94 Room Air Intake & Output 02/18 1600 02/18 0800 02/18 0000 Intake Total 100 Output Total 250 Balance -150 Intake, Oral 100 Number 1 Bowel Movements Output, Urine 250 Patient 189 lb 150 lb Weight Weight Estimated Measurement Method Exam: General: Patient awake but lethargic. He appears oriented without any distress; he appears depressed. CVS: S1 plus S2 without any murmur or gallops Chest: Few scattered crepitation without any wheeze. There is no respiratory distress. Abdomen: Soft with a linear scar in the midabdomen. Abdomen is tender to touch. Patient does not wish to be palpated. MOVEMENT THERAPIST: Awake alert oriented without any focal neuro deficit and follows command appropriately Extremities: No edema; no clubbing or cyanosis noted Laboratory Tests 02/18 02/17 0655 2349 Chemistry Magnesium (1.6 - 2.3 mg/dL) 1.7 Troponin I (<0.11 ng/ml) 0.02 Urines Urine Color (YEL,AMB,STR) YEL Urine Clarity (CLEAR) CLDY H Urine pH (5.0 - 8.0) 6.0 Ur Specific [place] (1.001 - 1.035) 1.025 Urine Protein (NEG,<30 MG/DL) 100 H Urine Ketones (NEG) NEG Urine Nitrite (NEG) NEG Urine Bilirubin (NEG) NEG Urine Urobilinogen (0.1 - 1.0 EU/dl) 1.0 Ur Leukocyte Esterase (NEG) LARGE H Ur Microscopic SEDIMENT EXAMINED Urine RBC (0 - 5 /HPF) >75 H Urine WBC (0 - 2 /HPF) PACKD H Urine Crystals 1+ CA OX H Urine Bacteria (NEG/NONE) PACKD H Urine Hemoglobin (NEG) LARGE H Urine Glucose (N MG/DL) NEG 02/17 2244 Chemistry Sodium (137 - 145 mmol/L) 135 L Potassium (3.5 - 5.1 mmol/L) 3.7 Chloride (98 - 107 mmol/L) 102 Carbon Dioxide (22 - 30 mmol/L) 25 Anion Gap (5 - 16) 7 BUN (9 - 20 mg/dL) 37 H Creatinine (0.7 - 1.2 mg/dL) 0.6 L Estimated GFR (>60 ml/min) > 60 BUN/Creatinine Ratio (7 - 25 %) 61.7 H Glucose (65 - 99 mg/dL) 109 H Calcium (8.4 - 10.2 mg/dL) 7.9 L Total Bilirubin (0.2 - 1.3 mg/dL) 0.3 AST (17 - 59 U/L) 86 H ALT (21 - 72 U/L) 108 H Alkaline Phosphatase (< 127 U/L) 282 H Troponin I (<0.11 ng/ml) 0.04 Owq-R-Hsqawcewabz Pept (<125 pg/mL) 3630 H Total Protein (6.3 - 8.2 g/dL) 5.8 L Albumin (3.5 - 5.0 g/dL) 2.1 L Globulin (1.9 - 4.2 gm/dL) 3.7 Albumin/Globulin Ratio (1.1 - 2.2 %) 0.6 L Coagulation PT (9.4 - 12.5 SEC) 13.2 H INR (0.90 - 1.17) 1.26 H Hematology CBC w Diff NO MAN DIFF REQ WBC (4.8 - 10.8 /CUMM) 13.9 H RBC (4.70 - 6.10 /CUMM) 3.44 L Hgb (14.0 - 18.0 G/DL) 9.9 L Hct (42 - 52 %) 30.2 L MCV (80.0 - 94.0 FL) 87.9 MCH (27.0 - 31.0 PG) 28.7 RDW (11.5 - 14.5 %) 18.0 H Plt Count (130 - 400 /CUMM) 414 H MPV (7.4 - 10.4 FL) 8.6 Gran % (42.2 - 75.2 %) 85.8 H Lymphocytes % (20.5 - 51.1 %) 8.1 L Monocytes % (1.7 - 9.3 %) 5.9 Eosinophils % (0 - 5 %) 0.1 Basophils % (0.0 - 2.0 %) 0.1 Absolute Granulocytes (1.4 - 6.5 /CUMM) 11.9 H Absolute Lymphocytes (1.2 - 3.4 /CUMM) 1.1 L Absolute Monocytes (0.10 - 0.60 /CUMM) 0.8 H Absolute Eosinophils (0.0 - 0.7 /CUMM) 0 Absolute Basophils (0.0 - 0.2 /CUMM) 0 PUBS MCHC (33.0 - 37.0 G/DL) 32.6 L Toxicology Phenytoin (10.0 - 20.0 ug/mL) 3.3 L Microbiology Date/Time Procedure - Status Source Growth 02/18 0200 Blood Culture - RECD BLOOD 02/18 0156 Blood Culture - RECD BLOOD 02/17 2349 Urine Culture - RECD URINE ROUT CT abdomen and pelvis Increasing bilateral pleural effusions and atelectasis and/or pneumonia. Increasing anasarca is also suggested. Findings appear otherwise largely unchanged with a large gas containing pelvic mass with slight decreased in the amount of air associated with this mass or intraperitoneal free air. Postsurgical changes in the right lower quadrant are again noted. Gallbladder is not definitively identified either contracted or previously removed. Assessment * Sinus tachycardia/SVT * Pseudomyxoma peritonei- awaiting surgery a Xenia. Patient has been on TPN in preparation for surgery. Today patient the says that he does not wish to undergo surgery. * Diffuse abdominal pain * Right-sided neck pain likely positional * History of PE- patient is on anti-coagulation * History of seizure disorder on Dilantin and Keppra * Depression- uncontrolled. Patient has been making statements the we suggest the patient is increasingly getting more depressed and current medication are no longer effective. We'll obtain a psych consult. Plan * Restart TPN * In the meanwhile start IV fluids D5 W normal saline with 20 KCl * Obtain psych consult for assessment of depression * Plan was discussed in detail with patient's brother. * Cardiology consult * Continue telemetry monitoring * Continue to follow off antibiotics. His urinalysis findings a chronic colonization and should not be treated
--- NOTE | 2017-02-18 13:17 | Cons- Cardiology ---
General Information and HPI Consulting Request Date of Consult: 02/18/17 Requested By: ОЛЕГ SOSA,WOLF History of Present Illness: Mr. Carrion is a 61 year old male with history of pulmonary embolism. He also carries a history of seizures and has a malignant abdominal mass status post right hemicolectomy. There is a residual pelvic tumor. The patient was sent for evaluation of increased heart rate. He felt that his heart was racing very quickly with associated shortness of breath, lightheadedness and chest tightness. He has now slowed down a bit and feels comfortable without any shortness of breath. His legs are swollen without pain. It may be recalled that this patient previously reported episodes of lightheadedness with loss of consciousness but these episodes appear to have been related to seizures. On last visit this patient reported that higher levels of activity will cause shortness of breath. He does have chronic leg edema which has become worse over time. The patient has been VRE positive. Hematochezia was also reported on a recent hospital admission but his current H/H is mildly decreased at 10/30. Allergies/Medications Allergies: Coded Allergies: NO KNOWN ALLERGIES (01/11/14) Home Med List: Acetaminophen (8 Hour) 650 MG TABLET.ER 1 TAB PO Q4H PRN PAIN/TEMP/> 101 ( Reported) Acetaminophen (Acephen) 650 MG SUPP.RECT 1 SUPP [place] Q4H PRN PAIN/TEMP>101 ( Reported) Albuterol Sulfate 2.5 MG/3 ML (0.083 %) VIAL.NEB 1 Vial INH/BRIT Q6H PRN SOB ( Reported) Bisacodyl 10 MG SUPP.RECT 1 SUP RC DAILY PRN CONSTIPATION (Reported) Diltiazem HCl (Diltiazem 12HR ER) 90 MG CAP.ER.12H 180 MG PO BID increase heart rate Enoxaparin Sodium (Lovenox) 100 MG/ML SYRINGE 100 MG SC Q12H BLOOD THINNER ( Reported) Ferrous Sulfate 325 MG (65 MG IRON) TABLET.DR 1 TAB PO DAILY anemia Folic Acid 1 MG TABLET 1 TAB PO DAILY SUPPLEMENT (Reported) Levetiracetam (Keppra) 1,000 MG TABLET 1 TAB PO Q12H seizure prophylaxis Loperamide HCl (Imodium A-D) 2 MG TABLET 1 TAB PO Q6H PRN LOOSE STOOL ( Reported) Magnesium Hydroxide (Milk Of Magnesia) 400 MG/5 ML ORAL.SUSP 30 ML PO DAILY PRN CONSTIPATION (Reported) Magnesium Oxide 400 MG TABLET 400 MG PO BID hypomagnesemia Metoprolol Tartrate 50 MG TABLET 1 TAB PO BID high heart rate Multivitamin (Daily Multiple Vitamin) 1 EACH TABLET 1 TAB PO DAILY SUPPLEMENT (Reported) Na Phos,M-B/Na Phos,Di-Ba (Fleet Enema) 19 GRAM-7 GRAM/118 ML ENEMA 1 E RC DAILY PRN CONSTIPATION (Reported) Omeprazole 40 MG CAPSULE.DR 1 CAP PO DAILY acidity Ondansetron HCl 4 MG TABLET 1 TAB PO Q6P PRN N/V (Reported) Oxybutynin Chloride 5 MG TABLET 1 TAB PO DAILY (Reported) Phenytoin Sodium Extended 100 MG CAPSULE 2 CAP PO BID SEIZURES (Reported) Polyethylene Glycol 3350 (Miralax) 17 GRAM POWD.PACK 1 PAC PO DAILY GI ( Reported) dissolve in water Sertraline HCl 25 MG TABLET 25 MG PO DAILY mental health [TPN] TPN (Reported) Trazodone HCl 50 MG TABLET 1 TAB PO QHS INSOMNIA (Reported) Past History Travel History Traveled to [place] past 21 day No Medical History Blood Transfusion Hx: No Neurological: seizure, childhood encephalitis EENT: NONE Cardiovascular: syncope (possible unwitnessed) Respiratory: pulmonary embolism (06/2014) Gastrointestinal: GERD (mild), hiatal hernia, large pelvic mass Hepatic: NONE Renal: benign prost hyperplasia Musculoskeletal: osteopenia; TL compression fractures Psychiatric: NONE Endocrine: osteopenia Blood Disorders: anemia, PE (06/2014) Cancer(s): NONE 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 MOTHER, , Age 50-60; Cause: Cancer of unknown origin. BROTHER ([employer]). Relation not specified for: *No pertinent family history Psychosocial History Where Do You Live? Home Services at Home: None Primary Language: Dutch Smoking Status: Never Smoked Living Will? yes Power of Water Treatment Plant Repairer/HCP? unknown Name of POA/HCP: brother Functional Ability ADLs Independent: dressing, eating, toileting, bathing. Ambulation: independent IADLs Independent: shopping, housework, finances, food prep, telephone, transportation , medication admin. Exam & Diagnostic Data Vital Signs and I&O Vital Signs Date Time Temp Pulse Resp B/P B/P Pulse O2 O2 Flow FiO2 Mean Ox Delivery Rate 02/18 1057 Room Air Room Air 02/18 0951 106/62 02/18 0829 98.2 106 20 106/60 92 Room Air 02/18 0400 93 Room Air 02/18 0345 97.8 106 20 92/60 90 Room Air 02/18 0330 93 Room Air 02/18 0125 112 104/71 94 Room Air 02/18 0028 111 101/71 02/17 2338 109 99/69 94 Room Air 02/17 2309 98/68 02/17 2256 98.2 111 17 112/72 02/17 2256 111 112/72 02/17 2250 111 113/72 02/17 2110 98.2 119 17 134/77 94 Room Air Intake & Output 02/18 1600 02/18 0800 02/18 0000 02/17 1600 02/17 0800 02/17 0000 Intake Total 100 Output Total 250 Balance -150 Intake, Oral 100 Number 1 Bowel Movements Output, Urine 250 Patient 189 lb 189 lb 150 lb Weight Weight Estimated Measurement Method Physical Exam: General: WD/ overweight male in NAD; alert and oriented x 3 HEENT: NC/AT, PERRL, EOMI Neck: +ve JVD, no carotid bruit Heart: mildly tachycardic with regular rhythm Lungs: decreased breath sounds at the bases bilaterally without crackles or wheezing. Abdomen: soft, NT, +ve bowel sounds Extremities: 2+ bilateral leg edema R>L Assessment/Plan Assessment/Plan * This patient has a normal EF with increasing pleural effusions. His breathing is now comfortable and he can lie flat. Unfortunately, this patient does not have a therapeutic INR and therefore may have tachycardia and shortness of breath related to a PE. Also in the differential is an obstructive process related to his mass that will decrease venous return and therby necessitate an increased heart rate to maintain his cardiac output. In either case the patient will need to maintain an adequate volume status to have adequate filling pressures. Obtain a D-dimer and ABG. Resume anticoagulation. Continue his current dose of Cardizem and Metoprolol. I previously only noted sinus tachycardia without any definite SVT but continue to monitor on telemetry. Obtain an ultrasound to evaluate for any obstruction of the IVC. Consult Acknowledgment - Thank you for your consult request.
--- NOTE | 2017-02-18 13:22 | Patient Discharge Instructions ---
Discharge Instructions General Discharge Information You were seen/treated for: Increased heart rate Special Instructions: Please follow up with your PCP with in a week of discharge. Please follow up with your garage laborer with in a week of discharge. Please take TPN as advised. If you get tachycardia please take an extra dose of metoprolol. Please follow up with onco surgeon for further management of psuedomyxoma. please resume the same TPN as before. Please increase the dose of Zoloft to to 100 mg on 02/26/2017 if tolerated as per psych recommendations. Pursue outpatient psychiatric care at [facility]( call [phone]) and schedule an intake appointment. Diet Continue normal diet: Yes Recommended Diet: TPN as advised Activity Full Activity/No Limits: No (as tolerated) Acute Coronary Syndrome Inclusion Criteria At DC or during hospital stay patient has or had the following: ACS DIAGNOSIS No Discharge Core Measures Meds if any: Prescribed or Continued at Discharge Meds if any: NOT Prescribed or Continued at Discharge Congestive Heart Failure Inclusion Criteria At DC or during hospital stay patient has or had the following: CHF DIAGNOSIS No Discharge Core Measures Meds if any: Prescribed or Continued at Discharge Meds if any: NOT Prescribed or Continued at Discharge Cerebrovascular accident Inclusion Criteria At DC or during hospital stay patient has or had the following: CVA/TIA Diagnosis No Discharge Core Measures Meds if any: Prescribed or Continued at Discharge Antithrombotic No Statin (required if LDL =>70) No Anticoagulant No Meds if any: NOT Prescribed or Continued at Discharge Venous thromboembolism Inclusion Criteria VTE Diagnosis No VTE Type NONE VTE Confirmed by (Test) NONE Discharge Core Measures - Per Current guidelines, there needs to be overlap - treatment for the first 5 days of Warfarin therapy. - If discharged on Warfarin prior to 5 days of - overlap therapy, the patient will need to be - assessed for post discharge needs including - *Post discharge parental anticoagulation - *Warfarin and/or parental anticoagulation education - *Follow up date to check INR post discharge At least 5 days overlap therapy as Inpatient No Meds if any: Prescribed or Continued at Discharge Warfarin No Note: Overlap Therapy is Warfarin and Anticoagulant Meds if any: NOT Prescribed or Continued at Discharge
[2017-02-18 15:30] VITALS: BP 104/68
--- NOTE | 2017-02-18 16:57 | Event Note ---
Event Note Event Note: Discussed with attending, plan is - * D5 half normal saline with 20 milligrams of KCl and stop it after starting TPN. * Continue same medication including Cardizem/metoprolol * We will place a consult to rule out depression and its management * Social work consult -for deciding for Goals of care. * We'll follow Cardiologic recommendation * Advised to do d-dimer, ABG to rule out PE and ultrasound of IVC to rule out IVC obstruction.
--- NOTE | 2017-02-19 00:22 | Event Note ---
Event Note Event Note: Explained the indication for CTA, after verbalizing understand of the possiblity of new PE he declined.
[2017-02-19 00:30] VITALS: BP 110/74
--- NOTE | 2017-02-19 01:13 | NUR ---
LATE ENTRY PT REFUSED SCHEDULED CTA. MD JOHANSEN AWARE AND UP TO SEE PATIENT. PT COINTINUED TO REFUSE.
--- NOTE | 2017-02-19 07:54 | Discharge Summary ---
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 In the ED: Vital signs showed T 98.2, HR 119, RR 17, BP 134/77 (dropped to 99/69 after giving cardizem push), 94% on RA. Labs were significant for WBC 13.9, 85.8% granulocytes, 0 bands, H&H 9.9/30.2, Plt 414, Na 135, K 3.7, Cl 102, HCO3 25, BUN/cre 37/0.6, Glu 109, AST 108, ALT 282, Trop 0.04, proBNP 3630, INR 1.26, phenytoin level 3.3 (low). UA was cloudy, 100 protein, large leukocyte esterase, >75 RBCs, packed WBCs, packed bacteria and large Hgb. CXR was obtained and showed increasing effusions and atelecasis, pulmonary edema vs infiltrate left parahilar greater than right. Abdominal/Pelvis CT showed increasing anasarca, unchanged large gas containing pelvic mass with slight decrease in amount of air. RLQ post-surgical changes. GB not definitively defined. Patient was kept on telemetry floor in observation for 1. Palpitations(sinus tachycardia): Patient was kept in observation. Metoprolol dose was increased to 75 mg twice a day for better heart rate control . Anticoagulation with Lovenox was continued. Serial troponin and EKG were done that ruled out any underlying ACS. Patient was evaluated by the recreation teacher Dr. Aragon, recommended ABG that showed respiratory alkalosis with elevated d-dimer levels , however CTA was not pursued as patient refused. Also abdominal ultrasound was done that showed IVC in the lower abdomen was compressed by the large mass but was patent. Patient's clinical condition improved within 24- hours and was discharged to the facility. 2. Uncontrolled anxiety and depression : Clinically patient was looking more anxious and depressed. Psych consult was obtained , as per recommendations of Zoloft dose was increased to 50 g daily, and then increase to 100 daily after 7 days on 02/26/2017 if tolerated. It was recommended to pursue outpatient psychiatric care at [facility]( call [phone]) and schedule an intake appointment. 3. Abnormal urinalysis: Patient has chronic Sanchez, abnormal urinalysis findings were most likely due to colonization so he was monitored off antibiotics. 3. 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 Proctor was obtained during this admission, recommended no surgical interventions at that time. TPN was continued in the hospital via PICC line. Patient mentioned during this hospitalization that he needed some time to think about further treatment options for the tumor. 4. History of PE on Lovenox: Subcutaneous lovenox SC 90 mg Q12H was continued 5. Seizure disorder on Dilantin and Keppra: Home medications including Dilantin 200 mg PO BID and Keppra 1000 mg PO BID were continued 6. GERD Home dose of prilosec 40 mg PO daily FULL CODE(patient just changed his CODE STATUS from DNR/DNI to full admit this time. Psych evaluated the patient mentioned that he has the capacity to make his own decisions) DVTP: SC Lovenox Diet: NPO with TPN Allergies: Coded Allergies: NO KNOWN ALLERGIES (01/11/14) Significant Procedures: EXAM TYPE: CAT - CT ABD & PELVIS W/O IV CONTRAS EXAMINATION: CT ABDOMEN AND PELVIS WITHOUT CONTRAST CLINICAL INFORMATION: Abdominal distention. COMPARISON: 02/10/2017. TECHNIQUE: Multidetector volumetric imaging was performed from the superior aspect of the liver through the pubic symphysis. Sagittal and coronal reformatted images were obtained on the technologist's workstation. DLP: 655 mGy-cm FINDINGS: Increasing bilateral pleural effusions with atelectasis, infiltrate less likely although not excluded. A large heterogeneous pelvic mass measuring approximately 20 cm in maximal craniocaudal dimension appears largely unchanged compared with the previous exam. Air within or anterior to the mass appears to have decreased in the interval. Clinical correlation for peritoneal signs is recommended. Just superior to the lesion appears to be some mildly distended colonic bowel loops however no underlying obstruction is suggested. There is a suture line in the right lower quadrant again noted suggesting previous partial bowel resection. There is a small amount of intraperitoneal free fluid in the deep pelvis and right upper quadrant adjacent to the liver No definite liver lesions are identified on this noncontrast examination, there is a question of scarring inferiorly in the right lobe. Gallbladder is not visualized, has this been removed or is a contracted? Mild to moderate left-sided hydroureteronephrosis is again seen. Urinary bladder is collapsed containing a Sanchez catheter. Moderate sized hiatal hernia is again noted. No bowel obstruction is seen. Indeterminate intraperitoneal versus retroperitoneal mass just inferior to the left kidney and in the right lower quadrant appear unchanged. These may be lymph nodes. No aggressive osseous lesions are seen. There is a mild compression deformity in the L4 vertebra assuming 5 lumbar type vertebra. IMPRESSION: Increasing bilateral pleural effusions and atelectasis and/or pneumonia. Increasing anasarca is also suggested. Findings appear otherwise largely unchanged with a large gas containing pelvic mass with slight decreased in the amount of air associated with this mass or intraperitoneal free air. Postsurgical changes in the right lower quadrant are again noted. Gallbladder is not definitively identified either contracted or previously removed. DICTATED BY: JOIE WAYNE MD DATE/TIME DICTATED:02/17/172230 ASSISTANT BASKETBALL COACH:KAILASH DATE/TIME TRANSCRIBED:02/17/172230 CONFIDENTIAL, DO NOT COPY WITHOUT APPROPRIATE AUTHORIZATION. <Electronically signed in Other Vendor System> SIGNED BY: JOIE WAYNE MD [id number] EXAM TYPE: US - US-ABD/PELV ORGAN DOPPLER EXAMINATION: US ABDOMEN AND PELVIS organs Doppler CLINICAL INFORMATION: Evaluate for IVC obstruction. Large pelvic mass. Bilateral leg swelling. COMPARISON: Previous CT scans most recent 02/17/2017 TECHNIQUE: Grayscale color and Doppler evaluation of the IVC FINDINGS: The intrahepatic IVC is patent. The IVC in the mid abdomen is not visualized. The IVC in the lower abdomen appears compressed by the mass but is patent. There is a large heterogeneous solid pelvic mass that measures 23 x 17 x 19 cm. IMPRESSION: The IVC in the mid abdomen is not visualized. The IVC in the lower abdomen is compressed by the large mass but is patent. DICTATED BY: ABRAN JONES MD DATE/TIME DICTATED:06/23/17 / 1057 ASSISTANT BASKETBALL COACH:KAILASH DATE/TIME TRANSCRIBED:02/19/17 / 1057 CONFIDENTIAL, DO NOT COPY WITHOUT APPROPRIATE AUTHORIZATION. <Electronically signed in Other Vendor System> SIGNED BY: ABRAN JONES MD [id number] Disposition Summary Disposition Principal Diagnosis: Palpitations(sinus tachycardia) Additional Diagnosis: Uncontrolled anxiety and depression Discharge Disposition: SNF Discharge Instructions General Discharge Information Code Status: Full Code Patient's Diet: Regular diet the pain as advised Patient's Activity: As tolerated Follow-Up Instructions/Appts: Please follow up with your PCP with in a week of discharge. Please follow up with your recreation teacher with in a week of discharge. Please take TPN as advised. Medications at Discharge Discharge Medications: Continue taking these medications: Phenytoin Sodium Extended (Phenytoin Sodium Extended) 100 MG CAPSULE 2 Capsule ORAL TWICE DAILY Qty = 360 Comments: Last Taken: 02/15/17 Time: 9 AM Multivitamin (Daily Multiple Vitamin) 1 EACH TABLET 1 Tablet ORAL DAILY Comments: NOT GIVEN IN HOSPITAL Enoxaparin Sodium (Lovenox) 100 MG/ML SYRINGE 100 Milligram Inject into fatty tissue Q12H Comments: NOT GIVEN IN HOSPITAL. Polyethylene Glycol 3350 (Miralax) 17 GRAM POWD.PACK 1 Packet ORAL DAILY Instructions: dissolve in water Trazodone HCl (Trazodone HCl) 50 MG TABLET 1 Tablet ORAL TAKE AT BEDTIME Oxybutynin Chloride (Oxybutynin Chloride) 5 MG TABLET 1 Tablet ORAL DAILY Comments: Last Taken:02/15/17 Time:9AM Folic Acid (Folic Acid) 1 MG TABLET 1 Tablet ORAL DAILY Comments: Last Taken: 02/15/17 Time:9AM [TPN] As Directed Comments: UNIT VOLUME: 2280ML TPN PROVIDES 116.92 GRAMS OF PROTEIN PER DAY AMINO ACID 15% 6.06% DEXTROSE 70% 16.54% -WATER INTRALIPID 20% 20.00% 350.55 ML ADDITIVES ARE SHOWN PER UNIT SODIUM CHLORIDE 45.00MEQ 23.4% SODIUM ACETATE 120.00MEQ POTASSIUM CHLORIDE 125.00MEQ SODIUM PHOSPHATE 30.00MM CALCIUM GLUCONATE 10.00MEQ MAGNESIUM SULFATE (1 GRAM/2ML VIAL) 40.00MEQ MTE-5 CONC. 1.00ML PATIENT ADDITIVES INFUVITE/10ML (=10ML ADD TO EVERY UNIT, EVERY DAY) INFUSE SOLUTION IV AT RATE OF 95ML/HR FOR 24HRS, DAILY. *ADD 10ML MVI PRIOR TO INFUSING* INFUSE VIA 1.2 MICRON FILTER SET. REFRIGERATE. Acetaminophen (8 Hour) 650 MG TABLET.ER 1 Tablet ORAL Q4H as needed for PAIN/TEMP/> 101 Acetaminophen (Acephen) 650 MG SUPP.RECT 1 SUPPOSITORY RECTALLY Q4H as needed for PAIN/TEMP>101 Magnesium Hydroxide (Milk Of Magnesia) 400 MG/5 ML ORAL.SUSP 30 Milliliters ORAL DAILY as needed for CONSTIPATION Bisacodyl (Bisacodyl) 10 MG SUPP.RECT 1 Suppository RECTAL DAILY as needed for CONSTIPATION Na Phos,M-B/Na Phos,Di-Ba (Fleet Enema) 19 GRAM-7 GRAM/118 ML ENEMA 1 Enema RECTAL DAILY as needed for CONSTIPATION Albuterol Sulfate (Albuterol Sulfate) 2.5 MG/3 ML (0.083 %) VIAL.NEB 1 Vial Inhale Solution Q6H as needed for SOB Loperamide HCl (Imodium A-D) 2 MG TABLET 1 Tablet ORAL Q6H as needed for LOOSE STOOL Ondansetron HCl (Ondansetron HCl) 4 MG TABLET 1 Tablet ORAL EVERY SIX HOURS NEEDED as needed for N/V Magnesium Oxide (Magnesium Oxide) 400 MG TABLET 400 Milligram ORAL TWICE DAILY Qty = 10 Comments: Last Taken: 02/15/17 Time:9AM Ferrous Sulfate (Ferrous Sulfate) 325 MG (65 MG IRON) TABLET.DR 1 Tablet ORAL DAILY Qty = 60 Comments: Last Taken:02/15/17 Time:9AM Diltiazem HCl (Diltiazem 12HR ER) 90 MG CAP.ER.12H 180 Milligram ORAL TWICE DAILY Qty = 60 Comments: Last Taken: 02/15/17 Time: 9AM Levetiracetam (Keppra) 1,000 MG TABLET 1 Tablet ORAL Q12H Qty = 60 Comments: Last Taken:02/15/17 Time: 9AM Omeprazole (Omeprazole) 40 MG CAPSULE.DR 1 Capsule ORAL DAILY Qty = 30 Comments: Last Taken:02/15/17 Time:06AM The following medications have been changed: Old: Sertraline HCl (Sertraline HCl) 25 MG TABLET 25 Milligram ORAL DAILY Days = 28 New: Sertraline HCl (Zoloft) 50 MG TABLET 1 Tablet ORAL DAILY Qty = 30 Instructions: please increase to 100mg after 7 days (on 02/26/2017) Comments: Last Taken: 02/15/17 Time:9 AM Old: Metoprolol Tartrate (Metoprolol Tartrate) 50 MG TABLET 1 Tablet ORAL TWICE DAILY Qty = 60 New: Metoprolol Tartrate (Lopressor) 50 MG TABLET 1.5 Tablet ORAL TWICE DAILY Qty = 60 Comments: Last Taken: 02/15/17 Time:9AM Copies To: GARRETT MACIAS MD
[2017-02-19 07:56] VITALS: BP 110/78
[2017-02-19 07:56] LABS: ABSOLUTE EOSINOPHIL COUNT 0.1 /CUMM (0.0-0.7); EOSINOPHIL % 0.7 % (0-5)
[2017-02-19 08:23] LABS: ABSOLUTE BASOPHIL COUNT 0 /CUMM (0.0-0.2); ABSOLUTE GRANULOCYTE CT 7.9 /CUMM (1.4-6.5); ABSOLUTE LYMPH COUNT 0.9 /CUMM (1.2-3.4); ABSOLUTE MONOCYTE COUNT 1.1 /CUMM (0.10-0.60); BASOPHIL % 0.3 % (0.0-2.0); GRANULOCYTE % 78.6 % (42.2-75.2); MEAN CORPUSCULAR HGB 28.1 PG (27.0-31.0); MEAN CORPUSCULAR HGB CONC 32.1 G/DL (33.0-37.0); MEAN CORPUSCULAR VOLUME 87.6 FL (80.0-94.0); MEAN PLATELET VOLUME 8.9 FL (7.4-10.4); PLATELET COUNT 349 /CUMM (130-400); RBC DISTRIBUTION WIDTH 17.9 % (11.5-14.5); RED BLOOD CELL CT 2.85 /CUMM (4.70-6.10); WHITE BLOOD CELL COUNT 10.1 /CUMM (4.8-10.8)
--- NOTE | 2017-02-19 10:23 | NUR ---
SW received electronic consult from MD Juvenal for Goals of care / code status changes. Discussed referrals in MDR. MDs to discuss goals of care and and team to discuss capacity with [facility] and make a referral if indicated which, it may be needed. Pt with family in the room this morning. Pt to return to SNF when medically ready. SW available upon request. Sw available for advanced directives if needed and appropriate.
--- NOTE | 2017-02-19 10:26 | PN- Att Addend ---
Attending Addendum Attending Brief Note Patient seen and examined. Plan of care discussed with the medical team and the patient. Available lab work and radiology test reports were reviewed. Patient 's morning is awake and able to the conversation. He reports that right-sided neck pain is better. He also complaining of for his usual abdominal pain. tubular riveter shows sinus tachycardia rate of 140. Vital Signs Date Time Temp Pulse Resp B/P B/P Pulse O2 O2 Flow FiO2 Mean Ox Delivery Rate 02/19 0756 97.9 104 16 110/78 97 Nasal 2.0L Cannula 02/19 0030 98.6 104 18 110/74 94 Room Air 02/19 0000 Nasal 2.0L Cannula 02/18 2215 110 145/78 02/18 1830 90 Room Air Room Air 02/18 1600 Room Air 02/18 1530 98.7 101 16 104/68 90 Room Air 02/18 1057 Room Air Room Air Intake & Output 02/19 1600 02/19 0800 02/19 0000 Intake Total 1034.4 411.0 Output Total 500 350 Balance 534.4 61.0 Intake, Lipid 368.0 42.0 Intake, Oral 120 Intake, 666.4 249 TPN/PPN Output, Urine 500 350 Exam: General: Patient awake but lethargic. He appears oriented without any distress; he appears depressed. CVS: S1 plus S2 without any murmur or gallops Chest: Few scattered crepitation without any wheeze. There is no respiratory distress. Abdomen: Soft with a linear scar in the midabdomen. Abdomen is tender to touch. Patient does not wish to be palpated. BOX PACKER: Awake alert oriented without any focal neuro deficit and follows command appropriately Extremities: No edema; no clubbing or cyanosis noted Laboratory Tests 02/19 02/18 0555 1840 Blood Gas pH (7.35 - 7.45 PH) 7.52 H pCO2 (35 - 45 TORR) 32 L pO2 (80 - 100 TORR) 59 L HCO3 (21 - 28 MEQ/L) 25 ABG O2 Sat (Measured) (>96.0 %) 90.0 L P-50 (Temp Corrected) N Carboxyhemoglobin (1.5 - 5.0 %) 0.8 L O2 Concentration % R/A Temperature (97.0 - 100.0 FARH) 98.0 Chemistry Sodium (137 - 145 mmol/L) 136 L Potassium (3.5 - 5.1 mmol/L) 3.7 Chloride (98 - 107 mmol/L) 102 Carbon Dioxide (22 - 30 mmol/L) 29 Anion Gap (5 - 16) 5 BUN (9 - 20 mg/dL) 35 H Creatinine (0.7 - 1.2 mg/dL) 0.7 Estimated GFR (>60 ml/min) > 60 BUN/Creatinine Ratio (7 - 25 %) 50.0 H Hematology CBC w Diff NO MAN DIFF REQ WBC (4.8 - 10.8 /CUMM) 10.1 RBC (4.70 - 6.10 /CUMM) 2.85 L Hgb (14.0 - 18.0 G/DL) 8.0 L Hct (42 - 52 %) 25.0 L MCV (80.0 - 94.0 FL) 87.6 MCH (27.0 - 31.0 PG) 28.1 RDW (11.5 - 14.5 %) 17.9 H Plt Count (130 - 400 /CUMM) 349 MPV (7.4 - 10.4 FL) 8.9 Gran % (42.2 - 75.2 %) 78.6 H Lymphocytes % (20.5 - 51.1 %) 9.4 L Monocytes % (1.7 - 9.3 %) 11.0 H Eosinophils % (0 - 5 %) 0.7 Basophils % (0.0 - 2.0 %) 0.3 Absolute Granulocytes (1.4 - 6.5 /CUMM) 7.9 H Absolute Lymphocytes (1.2 - 3.4 /CUMM) 0.9 L Absolute Monocytes (0.10 - 0.60 /CUMM) 1.1 H Absolute Eosinophils (0.0 - 0.7 /CUMM) 0.1 Absolute Basophils (0.0 - 0.2 /CUMM) 0 PUBS MCHC (33.0 - 37.0 G/DL) 32.1 L Miscellaneous Phlebotomy Draw Site LEFT BRACHIAL 02/18 1725 Coagulation D-Dimer High Sensitivty (0 - 243 ng/ml) 745 H Assessment * Sinus tachycardia/SVT * Pseudomyxoma peritonei- awaiting surgery a [place]. Patient has been on TPN in preparation for surgery. Today patient the says that he does not wish to undergo surgery. When I probed further to assess reasons why he does not wish to undergo surgery is not able to give a convincing answer. He states that he needs to address some urgent issues. He failed to remember who is his surgeon at [place]. At times he is confused. * Diffuse abdominal pain * Right-sided neck pain likely positional * History of PE- patient is on anti-coagulation * History of seizure disorder on Dilantin and Keppra * Depression- uncontrolled. Patient has been making statements the we suggest the patient is increasingly getting more depressed and current medication are no longer effective. We'll obtain a psych consult. Plan * Continued TPN * Obtain psych consult for assessment of depression * Cardiology consult note reviewed- acute obtaining ultrasound of abdomen to rule out IVC clot * Continue telemetry monitoring * Continue to follow off antibiotics. His urinalysis findings a chronic colonization and should not be treated * Discharge to retirement today Total time spent in preparation for discharge plan, patient education, and CMR preparation was 35 minutes.
--- NOTE | 2017-02-19 11:06 | ULTRASOUND REPORT ---
EXAMINATION: US ABDOMEN AND PELVIS organs Doppler CLINICAL INFORMATION: Evaluate for IVC obstruction. Large pelvic mass. Bilateral leg swelling. COMPARISON: Previous CT scans most recent 02/17/2017 TECHNIQUE: Grayscale color and Doppler evaluation of the IVC FINDINGS: The intrahepatic IVC is patent. The IVC in the mid abdomen is not visualized. The IVC in the lower abdomen appears compressed by the mass but is patent. There is a large heterogeneous solid pelvic mass that measures 23 x 17 x 19 cm. IMPRESSION: The IVC in the mid abdomen is not visualized. The IVC in the lower abdomen is compressed by the large mass but is patent.
[2017-02-19 12:07] VITALS: BP 112/70
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
[2017-02-19] MEDS ORDERED: ZOLOFT50 M1 PO (13:17)
[2017-02-19] MEDS ORDERED: LOPRESSOR50 M1 PO (13:17)
[2017-02-19 14:43] VITALS: BP 120/78
--- NOTE | 2017-02-19 14:49 | PN-Observation ---
Observation Note Observation Note _ I have personally examined JUANY GONZALEZ. him disposition is uncertain at this time. Before a determination can be made, he requires continued observation for the following reasons []. 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 Assessment - Patient is seen and examined at the bedside.Patient is stable today. Telemetry monitoring showed he has normal sinus rhythm with sinus tachycardia and heart rate remained between 94-110 with occasional PVCs. His neck pain has become better and he thinks it is due to abnormal position while sleeping. In the morning,he was much more awake and was able to talk in detail about his problems , but in between, he confabulates. He told that he does not want to undergo surgery. We discussed, that he is hemodynamically stable and his tachycardia has been under control.He told that he doesn't want to go to rehabilitation facility and he has to talk to his brother. I talked to psychiatrist, and they told that patient is completely competent to make decision. They advised to increase the dose of Sertraline to 50 milligrams for next 7 days followed by increased to 100 milligrams once a day. Ultrasound of abdomen showed compression of IVC by the mass in the abdomen.I discussed with him in the afternoon about the result of ultrasound and told him that he should have surgery so that we can relieve this compression and that will help in relieving his lower leg swelling. We discussed about our plan to discharge. He was ok with plan. I also recommended him that he should think about surgery. Problem List: 1. Pseudomyxoma peritonei 2. Supraventricular tachycardia 3. DVT prophylaxis 4. History of pulmonary embolism 5. History of seizures Plan: Plan - * Discharge today * Continue all previous medication including TPN * Increase the dose of tablet metoprolol 75 milligrams twice a day and tablet sertraline 50 milligrams once a day for 7 days. And advised to increase the dose 200 milligrams once a day,afterwards. * We advised him to follow-up with oncology surgeon at [place]. DVT/Prophylaxis: mechanical, pharmacological Subjective Follow-up For: Supraventricular tachycardia Complaints: no complaints Tele-Events Since Last Visit: Normal sinus rhythm, sinus tachycardia, heart rate is 94-110, PVCs Subjective: Patient is seen and examined at the bedside. He was conscious, cooperative. He does not have any active complaints. Review of Systems Constitutional: Reports: no symptoms, weakness. Gastrointestinal: Reports: abdominal pain. Objective Last 24 Hrs of Vital Signs/I&O Vital Signs Date Time Temp Pulse Resp B/P B/P Pulse O2 O2 Flow FiO2 Mean Ox Delivery Rate 02/19 1443 97.9 97 16 120/78 02/19 1350 97 120/78 02/19 1207 108 112/70 02/19 1136 98 Nasal 2.0L Cannula 02/19 0756 97.9 104 16 110/78 97 Nasal 2.0L Cannula 02/19 0030 98.6 104 18 110/74 94 Room Air 02/19 0000 Nasal 2.0L Cannula 02/18 2215 110 145/78 02/18 1830 90 Room Air Room Air 02/18 1600 Room Air Intake & Output 02/19 1600 02/19 0800 02/19 0000 Intake Total 1034.4 411.0 Output Total 450 500 350 Balance -450 534.4 61.0 Intake, Lipid 368.0 42.0 Intake, Oral 120 Intake, 666.4 249 TPN/PPN Output, Urine 450 500 350 Physical Exam General Appearance: Alert, Oriented X3, Cooperative, No Acute Distress Cardiovascular: Normal S1, Normal S2 Lungs: Normal Air Movement, right basal lobe decrease air entry Abdomen: Soft, tender, scar kyung Neurological: Normal Speech Extremities: bilateral lower extremeties piting edema Current Medications: Current Medications Sig/Ghulam Start time Last Medication Dose Route Stop Time Status Admin Albuterol Sulfate 3 ML Q4P PRN 02/18 1115 AC INH Diltiazem HCl 180 MG BID 02/18 1000 AC 02/19 PO 1350 Enoxaparin Sodium 90 MG Q12H 02/18 1830 AC 02/19 SC 0545 Fat Emulsion 350 ML 02/19 1900 AC Intravenous IV 02/20 1858 Fat Emulsion 350 ML 02/18 1900 AC 02/18 Intravenous IV 02/19 1859 2000 Levetiracetam 1,000 MG BID 02/18 1000 AC 02/19 PO 1157 Magnesium Oxide 400 MG BID 02/18 1000 AC 02/19 PO 1158 Metoprolol Tartrate 75 MG BID 02/18 1000 AC 02/19 PO 1157 Omeprazole 40 MG DAILY AC 02/18 0700 AC 02/19 PO 0545 Ondansetron HCl 4 MG Q8P PRN 02/18 0245 AC PO Oxybutynin Chloride 5 MG DAILY 02/18 1000 AC 02/19 PO 1157 Phenytoin 200 MG BID 02/18 1000 AC 02/19 PO 1157 Potassium Chloride 20 MEQ Q13H 02/18 1245 DC 02/18 Dextrose/Sodium 1,000 ML IV 1436 Chloride Sertraline HCl 50 MG DAILY 02/19 1000 AC 02/19 PO 1158 Sertraline HCl 25 MG DAILY 02/18 1000 DC 02/18 PO 0952 Total Parenteral 1 UNIT 1900 02/19 1900 AC Nutrition IV 02/20 1859 Total Parenteral 1 UNIT 02/18 1900 AC 02/18 Nutrition IV 02/19 1851999 Trazodone HCl 50 MG AT BEDTIME 02/18 0245 02/18 PO 2214 Last 24 Hrs of Labs/Mics: Laboratory Tests 02/19/17 0555: Anion Gap 5, Estimated GFR > 60, BUN/Creatinine Ratio 50.0 H, CBC w Diff NO MAN DIFF REQ, RBC 2.85 L, MCV 87.6, MCH 28.1, RDW 17.9 H, MPV 8.9, Gran % 78.6 H, Lymphocytes % 9.4 L, Monocytes % 11.0 H, Eosinophils % 0.7, Basophils % 0.3, Absolute Granulocytes 7.9 H, Absolute Lymphocytes 0.9 L, Absolute Monocytes 1.1 H, Absolute Eosinophils 0.1, Absolute Basophils 0, PUBS MCHC 32.1 L 02/18/17 1840: pH 7.52 H, pCO2 32 L, pO2 59 L, HCO3 25, ABG O2 Sat (Measured) 90.0 L, P-50 (Temp Corrected) N, Carboxyhemoglobin 0.8 L, O2 Concentration % R/A, Temperature 98.0, Phlebotomy Draw Site LEFT BRACHIAL 02/18/17 1725: D-Dimer High Sensitivty 745 H
== END 2017-02-19 15:15 ==
LOC: ERH 21:01 → 1NO 02-18 00:47 → ERHI 02-18 00:47 → 1NO 02-18 00:47 → ENRESERV 02-18 01:40 → 1NO 02-18 03:43 → ENPENDDIS 02-19 13:36 → 1NO 02-19 15:15
PROVIDERS: Emergency Medicine; Internal Medicine; ADMIT Student in an Organized Health Care Education/Training Program
DX: R00.0 Tachycardia, unspecified (principal); C78.6 Secondary malignant neoplasm of retroperitoneum and peritoneum; Z86.711 Personal history of pulmonary embolism; Z79.01 Long term (current) use of anticoagulants; R56.9 Unspecified convulsions; K21.9 Gastro-esophageal reflux disease without esophagitis; N40.0 Benign prostatic hyperplasia without lower urinary tract symptoms; F41.9 Anxiety disorder, unspecified; F32.9 Major depressive disorder, single episode, unspecified; D50.9 Iron deficiency anemia, unspecified; E87.3 Alkalosis
CPT/HCPCS: 1328; 1425; 1530; 1748; 36415; 74176; 81001; 82436; 87040; 87086; 92610-GN; 93005; 93010; 96372; 96374; 96375; 99291; G0378; G8996-GN; G8997-GN; G8998-GN; J1650; J3101; J7042

== ENCOUNTER 2017-02-23 14:44 | Observation (INO) | payer OTHER, MEDICARE ==
[~2017-02-23] VITALS: Ht 182.9 cm; Wt 91.2 kg
[~2017-02-23 14:44] MED LIST changes: +LOPRESSOR50 M1 PO; +ZOLOFT50 M1 PO
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
--- NOTE | 2017-02-23 15:16 | NUR ---
REPORT RECEIVED; CARE OF PATIENT ASSUMED
--- NOTE | 2017-02-23 16:20 | NUR ---
PA STUDENT WITH PATIENT
--- NOTE | 2017-02-23 16:25 | ED GENERAL ADULT ---
History of Present Illness General Chief Complaint: Palpitations Stated Complaint: BIBA PALPITATION Source: patient, old records Exam Limitations: poor historian Vital Signs & Intake/Output Vital Signs & Intake/Output Vital Signs Date Time Temp Pulse Resp B/P B/P Pulse O2 O2 Flow FiO2 Mean Ox Delivery Rate 02/25 1450 98.9 102 20 110/76 94 Nasal Cannula 02/25 1347 98 Nasal 2.0L Cannula 02/25 1303 Nasal 3.0L Cannula 02/25 1232 97.6 100 20 108/64 02/25 1221 100 108/64 02/25 0800 Nasal 3.0L Cannula 02/25 0743 97.6 82 20 112/84 97 Nasal Cannula 02/24 2142 98.9 112 20 110/70 97 ED Intake and Output 02/25 0000 02/24 1200 Intake Total 913.0 130 Output Total 350 Balance 563.0 130 Intake, IV 458. 130 Intake, Lipid 15.0 Intake, Oral 350 Intake, 90 TPN/PPN Number 3 Bowel Movements Output, Urine 350 Patient 201 lb Weight Allergies Coded Allergies: NO KNOWN ALLERGIES (01/11/14) Reconcile Medications Acetaminophen (8 Hour) 650 MG TABLET.ER 1 TAB PO Q4H PRN PAIN/TEMP/> 101 ( Reported) Acetaminophen (Acephen) 650 MG SUPP.RECT 1 SUPP SD Q4H PRN PAIN/TEMP>101 ( Reported) Albuterol Sulfate 2.5 MG/3 ML (0.083 %) VIAL.NEB 1 Vial INH/BRIT Q6H PRN SOB ( Reported) Alprazolam (Xanax) 0.25 MG TABLET 1 TAB PO BID PRN anxiety Bisacodyl 10 MG SUPP.RECT 1 SUP RC DAILY PRN CONSTIPATION (Reported) Diltiazem HCl (Diltiazem 24HR ER) 180 MG CAP.ER.24H 1 CAP PO DAILY tachycardia (Reported) Enoxaparin Sodium (Lovenox) 100 MG/ML SYRINGE 100 MG SC Q12H BLOOD THINNER ( Reported) Ferrous Sulfate 325 MG (65 MG IRON) TABLET.DR 1 TAB PO DAILY anemia Folic Acid 1 MG TABLET 1 TAB PO DAILY SUPPLEMENT (Reported) Levetiracetam (Keppra) 1,000 MG TABLET 1 TAB PO Q12H seizure prophylaxis Loperamide HCl (Imodium A-D) 2 MG TABLET 1 TAB PO Q6H PRN LOOSE STOOL ( Reported) Magnesium Hydroxide (Milk Of Magnesia) 400 MG/5 ML ORAL.SUSP 30 ML PO DAILY PRN CONSTIPATION (Reported) Magnesium Oxide 400 MG TABLET 400 MG PO BID hypomagnesemia Metoprolol Tartrate (Lopressor) 50 MG TABLET 75 MG PO BID HTN/TACYHCARDIA ( Reported) Multivitamin (Daily Multiple Vitamin) 1 EACH TABLET 1 TAB PO DAILY SUPPLEMENT (Reported) Na Phos,M-B/Na Phos,Di-Ba (Fleet Enema) 19 GRAM-7 GRAM/118 ML ENEMA 1 E RC DAILY PRN CONSTIPATION (Reported) Omeprazole 40 MG CAPSULE.DR 1 CAP PO DAILY acidity Ondansetron HCl 4 MG TABLET 1 TAB PO Q6P PRN N/V (Reported) Oxybutynin Chloride 5 MG TABLET 1 TAB PO DAILY (Reported) Phenytoin Sodium Extended 100 MG CAPSULE 2 CAP PO BID SEIZURES (Reported) Polyethylene Glycol 3350 (Miralax) 17 GRAM POWD.PACK 1 PAC PO DAILY GI ( Reported) dissolve in water Sertraline HCl (Zoloft) 50 MG TABLET 1 TAB PO DAILY depression please increase to 100mg after 7 days (on 02/26/2017) [TPN] TPN (Reported) Trazodone HCl 50 MG TABLET 1 TAB PO QHS INSOMNIA (Reported) Triage Note: 61 YEAR OLD MALE TO ER FROM [facility] FOR COMPLAINTS OF PALPATIONS, SINUS TACH ON MONITOR HR 120, PT HAS PRE HOSPITAL IV IN PLACE TO LAC, PRE HOSPITAL ACE IN [place] AND DRAINING CLOUDY URINE. ON ARRIVAL PT DENIES CP/SOB, DENIES ABD PAIN. 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 Triage Nurses Notes Reviewed? yes Duration: week(s): Timing: recent history HPI: 61-year-old male presents to emergency department complaining of palpitations and panic attack today. Today he experienced some difficulty breathing. He also complains of abdominal pains intermittently. Patient was recently admitted for sinus tachycardia and increasing anasarca with pleural effusions. Patient is a poor historian however old records reviewed for further information. 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 He states he didn't feel that he had to come to the ER today however people at his facility were worried. He denies chest pain, changes in bowel movements, headache, fevers. (GARY LOO PA-C) Past History Travel History Traveled to [place] past 21 day No Medical History Any Pertinent Medical History? 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 MOTHER, , Age 50-60; Cause: Cancer of unknown origin. BROTHER ([employer]). Relation not specified for: *No pertinent family history Hx Contributory? No (GARY LOO PA-C) Review of Systems Review of Systems Constitutional: Reports: no symptoms. EENTM: Reports: no symptoms. Respiratory: Reports: see HPI. Cardiovascular: Reports: see HPI. GI: Reports: see HPI. Genitourinary: Reports: no symptoms. Musculoskeletal: Reports: no symptoms. Skin: Reports: no symptoms. Neurological/Psychological: Reports: no symptoms. Hematologic/Endocrine: Reports: no symptoms. Immunologic/Allergic: Reports: no symptoms. All Other Systems: Reviewed and Negative (GARY LOO PA-C) Physical Exam Physical Exam General Appearance: well developed/nourished, no apparent distress, alert, awake Head: atraumatic, normal appearance Eyes: Bilateral: normal appearance, EOMI. Ears, Nose, Throat: hearing grossly normal Neck: normal inspection, supple, full range of motion Respiratory: normal breath sounds, chest non-tender, no respiratory distress, lungs clear Cardiovascular: tachycardia Gastrointestinal: healed post surgical scar below umbilicus, lower abdomen is firm to palpation, general tenderness in all quadrants, no rebound or gaurding Back: normal inspection Extremities: 2+ pitting edema bilaterally Neurologic/Psych: awake, alert, oriented x 3 Skin: intact, normal color Core Measures ACS in differential dx? Yes CVA/TIA Diagnosis: No Severe Sepsis Present: No Septic Shock Present: No (GARY LOO PA-C) Progress Differential Diagnoses I considered the following diagnoses in my evaluation of the patient: [ACS, PE, sepsis, UTI, PNA] Plan of Care: Orders Procedure Date/time Status PARTIAL THROMBOPLASTIN TIME 02/25 1430 Active TRIGLYCERIDES 02/25 1022 Complete Heparin Drip- AFIB/FLUTTER/PE/ 02/25 0841 Active PARTIAL THROMBOPLASTIN TIME 02/25 0600 Complete Therapeutic Exercise X 15 02/25 UNK Complete MOBILITY GOAL STATUS 02/25 UNK Complete MOBILITY CURRENT STATUS 02/25 UNK Complete PT EVAL LOW COMPLEX 20 MIN 02/25 UNK Complete Discharge Patient 02/25 UNK Active Ace, Insertion/Removal/Asses 02/24 2248 Active PARTIAL THROMBOPLASTIN TIME 02/24 2230 Complete OXYGEN SETUP CHG 02/24 UNK Complete OXYGEN 02/24 UNK Complete Laboratory Tests 02/25/17 1040: Triglycerides 76 02/25/17 0700: APTT 107 *H 02/24/17 2230: APTT 38 H Patient presenting with persistent tachycardia despite by mouth diltiazem outpatient. Patient given 10MG Cardizem as Discussed with Dr. Cabrera. Purulent drainage from catheter site noted. Catheter was removed and replace and UA sent to lab. Patient started on IVFs given his diarrhea and given 25mg PO lopressor for his continued tachycardia. 21:32 - The patient was discussed with case management, Dr. Moore, and Dr. Diego. The patient will be under telemetry observation for his persistent tachycardia. He also has a probable complicated UTI given his urinalysis and indwelling catheter. He is at risk for sepsis and has a history of VRE. Patient will need further IV fluids, repeat labs, cardiology consult, the vitals checked, which her discharge would be medically harmful. The patient was signed out to Dr. Moore. (GARY OLO PA-C) Diagnostic Imaging: Viewed by Me: Radiology Read. Discussed w/RAD: Radiology Read. CXR Impression: PATIENT: JUANY GONZALEZ PRESENT AGE: 61 PATIENT ACCOUNT NO: [id number] : 54 LOCATION: [facility] ORDERING PHYSICIAN: JAREN MOORE MD SERVICE DATE: 02/23/17 EXAM TYPE: RAD - XRY-PORTABLE CHEST XRAY EXAMINATION: XR PORTABLE CHEST CLINICAL INFORMATION: Follow-up. COMPARISON: 02/17/2017. TECHNIQUE: Portable 80 degrees upright view of the chest was obtained. FINDINGS: Exam is somewhat limited due to rotation. Lung volumes remain diminished with moderate basilar opacities again identified largely unchanged, atelectasis and/or infiltrate with underlying effusions. A right- sided PICC line is identified tip at the SVC right atrial junction. IMPRESSION: Stable appearing chest x-ray with diminished volumes atelectasis and/or infiltrate and underlying effusions. DICTATED BY: JOIE WAYNE MD DATE/TIME DICTATED:02/23/172040 LAB CLERK:KAILASH DATE/TIME TRANSCRIBED:2040 CONFIDENTIAL, DO NOT COPY WITHOUT APPROPRIATE AUTHORIZATION. < Electronically signed in Other Vendor System> SIGNED BY: JOIE WAYNE MD 02/23/172048 Initial ED EKG: SINUS TACHYCARDIA AT 119BPM, FLATTENED T WAVES Prior EKG: unchanged Hand-Off Endorsed To: JAREN MOORE MD Endorsed Time: 2133 Comments: Pending telemetry observation (GARY LOO PA-C) Departure Departure Time of Disposition: 2129 Disposition: STILL A PATIENT Condition: Stable Clinical Impression Primary Impression: Tachycardia Secondary Impressions: Complicated urinary tract infection Referrals: GARRETT MACIAS MD (PCP/Family) Departure Forms: Customer Survey General Discharge Information Prescriptions: Current Visit Scripts Alprazolam (Xanax) 1 TAB PO BID PRN anxiety #60 TAB Observation Note Spoke With: KAIT DIEGO MD Physician Advisor Notified: AZIZA SOSA,ANN Alvarez Place Patient In: Non-ED OBS Care Area Rationale for Observation: My rational for observation is as follows [persistent tachycardia despite IVFs, cardizem, lopressor, needs cardiology consult, ongoing fluid losses d/t diarrhea , risk for metaboic alkalosis/volume depletion, likly complicated UTI with risk for sepsis, monitor volume status, electrolyes, heart rate, blood pressure. Patient is poor historian and unable to complete ADLs, premature discharge would be medically harmful]. (GARY OLO PA-C) PA/[facility] Co-Sign Statement Statement: ED Attending supervision documentation- x I saw and evaluated the patient. I have also reviewed all the pertinent lab results and diagnostic results. I agree with the findings and the plan of care as documented in the PA's/[facility]'s documentation. [] I have reviewed the ED Record and agree with the PA's/[facility]'s documentation. [] Additions or exceptions (if any) to the PAs/[facility]'s note and plan are summarized below: [] (FILI SOSA,VALERIO) Critical Care Note Critical Care Note Critical Care Time: non-applicable (CINDA FLORES,GARY)
--- NOTE | 2017-02-23 17:06 | NUR ---
LABS DRAWN AND SENT, LAV,SST,BLUE,LANDAVERDE TOP.
[2017-02-23 17:10] LABS: ABSOLUTE BASOPHIL COUNT 0 /CUMM (0.0-0.2); ABSOLUTE EOSINOPHIL COUNT 0 /CUMM (0.0-0.7); ABSOLUTE GRANULOCYTE CT 9.9 /CUMM (1.4-6.5); ABSOLUTE LYMPH COUNT 0.9 /CUMM (1.2-3.4); ABSOLUTE MONOCYTE COUNT 0.9 /CUMM (0.10-0.60); BASOPHIL % 0 % (0.0-2.0); EOSINOPHIL % 0.1 % (0-5); GRANULOCYTE % 84.4 % (42.2-75.2); HEMATOCRIT 27.7 % (42-52); MEAN CORPUSCULAR HGB 28.4 PG (27.0-31.0); MEAN CORPUSCULAR HGB CONC 32.6 G/DL (33.0-37.0); MEAN CORPUSCULAR VOLUME 87.3 FL (80.0-94.0); MEAN PLATELET VOLUME 7.5 FL (7.4-10.4); PLATELET COUNT 370 /CUMM (130-400); RBC DISTRIBUTION WIDTH 18.1 % (11.5-14.5); RED BLOOD CELL CT 3.17 /CUMM (4.70-6.10); WHITE BLOOD CELL COUNT 11.7 /CUMM (4.8-10.8)
[2017-02-23] MEDS ORDERED: LOPRESSOR50 M1 PO (19:13)
--- NOTE | 2017-02-23 19:24 | NUR ---
ACE CATHETER CHANGED ORDERED. 30ML VISCOUS PURULENT URINE OBTAINED AND SENT TO LAB.
--- NOTE | 2017-02-23 20:49 | RADIOLOGY REPORT ---
EXAMINATION: XR PORTABLE CHEST CLINICAL INFORMATION: Follow-up. COMPARISON: 02/17/2017. TECHNIQUE: Portable 80 degrees upright view of the chest was obtained. FINDINGS: Exam is somewhat limited due to rotation. Lung volumes remain diminished with moderate basilar opacities again identified largely unchanged, atelectasis and/or infiltrate with underlying effusions. A right-sided PICC line is identified tip at the SVC right atrial junction. IMPRESSION: Stable appearing chest x-ray with diminished volumes atelectasis and/or infiltrate and underlying effusions.
--- NOTE | 2017-02-23 21:00 | NUR ---
PATIENT CALLED RN TO ROOM. THIS RN TO BEDSIDE, NOTED IV SITE TO LEFT AC INFILTRATED, NS LITER BAG INFUSING, APPROX 300ML MISSING FROM BAG. PATIENT NOTED W/ COOL TO PRASHANT, PALE SKIN TO L MID FOREARM EXTENDING TO APPROX 2 INCHES ABOVE ELBOW, SWELLING NOTED TO ENTIRE CIRCUMFERENCE. JUSTYNA RN (PATIENT'S PRIMARY RN ALERTED AND TO BEDSIDE FOR ASSESSMENT), WARM COMPRESS APPLIED AT SITE W/ KANU WRAP. IV REMOVED. RN CONTINUES TO MONITOR. PATIENT DENIES PAIN TO SITE, REPORTING "JUST SAW IT GETTING BIGGER."
--- NOTE | 2017-02-23 21:30 | NUR ---
IVF RESTARTED USING PT'S MIKE MALIK PICC. BOTH PORTS PATENT WITH POSITIVE FLUSH & RETURN
--- NOTE | 2017-02-23 22:37 | History & Physical ---
MARISELA NICHOLSJEAN CARLOS 02/23/17 2237: General Information and HPI MD Statement: I have seen and personally examined JUANY GONZALEZ and documented this H&P. The patient is a 61 year old M who presented with a patient stated chief complaint of palpitations, shortness of breath, chest discomfort, dizziness, diarrhea. Source of Information: patient Exam Limitations: no limitations History of Present Illness: Mr Gonzalez is a 61-year-old man who is known to be in his usual state of health until about 3 weeks ago. He is a past history of childhood encephalopathy ( associated seizures), pulmonary embolism (dx'ed 2013 on Lovenox), malignancy pseudomyxoma/peritoneal mass( partial resection 2016; deemed unresectable due to the extention of the tumour in the viscera), persistent tachycardia, anemia( anemia of chronic disease+iron def anemia). Recent admission to [place] not long ago with similar complaints. He was brought to [facility] with a chief concern of palpitations, diarrhea. As per the patient, he developed loose stools approximately 3 weeks ago, 4-5 times a day, dark-colored stools. He is currently on total parenteral nutrition also. Reports persistent abdominal discomfort. The afternoon of admission, the patient developed nervousness, what he called as panic attack, palpitations that lasted for a few seconds. Associated difficulty breathing, chest discomfort and dizziness at that time. Symptoms resolved within a few minutes. No fever or chills. As per the records from [facility], the patient had pulse rate 124-1 :30, hadn't had generalized weakness and appeared lethargic. Allergies/Medications Allergies: Coded Allergies: NO KNOWN ALLERGIES (01/11/14) Home Med list Acetaminophen (8 Hour) 650 MG TABLET.ER 1 TAB PO Q4H PRN PAIN/TEMP/> 101 ( Reported) Acetaminophen (Acephen) 650 MG SUPP.RECT 1 SUPP VA Q4H PRN PAIN/TEMP>101 ( Reported) Albuterol Sulfate 2.5 MG/3 ML (0.083 %) VIAL.NEB 1 Vial INH/BRIT Q6H PRN SOB ( Reported) Bisacodyl 10 MG SUPP.RECT 1 SUP RC DAILY PRN CONSTIPATION (Reported) Enoxaparin Sodium (Lovenox) 100 MG/ML SYRINGE 100 MG SC Q12H BLOOD THINNER ( Reported) Ferrous Sulfate 325 MG (65 MG IRON) TABLET.DR 1 TAB PO DAILY anemia Folic Acid 1 MG TABLET 1 TAB PO DAILY SUPPLEMENT (Reported) Levetiracetam (Keppra) 1,000 MG TABLET 1 TAB PO Q12H seizure prophylaxis Loperamide HCl (Imodium A-D) 2 MG TABLET 1 TAB PO Q6H PRN LOOSE STOOL ( Reported) Magnesium Hydroxide (Milk Of Magnesia) 400 MG/5 ML ORAL.SUSP 30 ML PO DAILY PRN CONSTIPATION (Reported) Magnesium Oxide 400 MG TABLET 400 MG PO BID hypomagnesemia Metoprolol Tartrate (Lopressor) 50 MG TABLET 75 MG PO DAILY HEART (Reported) Multivitamin (Daily Multiple Vitamin) 1 EACH TABLET 1 TAB PO DAILY SUPPLEMENT (Reported) Na Phos,M-B/Na Phos,Di-Ba (Fleet Enema) 19 GRAM-7 GRAM/118 ML ENEMA 1 E RC DAILY PRN CONSTIPATION (Reported) Omeprazole 40 MG CAPSULE.DR 1 CAP PO DAILY acidity Ondansetron HCl 4 MG TABLET 1 TAB PO Q6P PRN N/V (Reported) Oxybutynin Chloride 5 MG TABLET 1 TAB PO DAILY (Reported) Phenytoin Sodium Extended 100 MG CAPSULE 2 CAP PO BID SEIZURES (Reported) Polyethylene Glycol 3350 (Miralax) 17 GRAM POWD.PACK 1 PAC PO DAILY GI ( Reported) dissolve in water Sertraline HCl (Zoloft) 50 MG TABLET 1 TAB PO DAILY depression please increase to 100mg after 7 days (on 02/26/2017) [TPN] TPN (Reported) Trazodone HCl 50 MG TABLET 1 TAB PO QHS INSOMNIA (Reported) Past History Travel History Traveled to [place] past 21 day No Medical History Neurological: seizure, childhood encephalitis EENT: NONE Cardiovascular: syncope (possible unwitnessed) Respiratory: pulmonary embolism (06/2014) Gastrointestinal: GERD (mild), hiatal hernia, large pelvic mass Hepatic: NONE Renal: benign prost hyperplasia Musculoskeletal: osteopenia; TL compression fractures Psychiatric: NONE Endocrine: osteopenia Blood Disorders: anemia, PE (06/2014) Cancer(s): NONE 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 MOTHER, , Age 50-60; Cause: Cancer of unknown origin. BROTHER (A&W). Relation not specified for: *No pertinent family history Psychosocial History Services at Home: None Primary Language: Mosotho ETOH Use: denies use Illicit Drug Use: denies illicit drug use Living Will? yes Power of Drum Sander Offbearer/HCP? unknown Name of POA/HCP: brother Functional Ability ADLs Unknown: dressing, eating, toileting, bathing. Ambulation: independent IADLs Unknown: shopping, housework, finances, food prep, telephone, transportation, medication admin. Review of Systems Review of Systems Constitutional: Reports: see HPI. Denies: chills, fever. EENTM: Denies: visual changes. Cardiovascular: Denies: chest pain, orthopena. Respiratory: Denies: cough, short of breath. GI: Reports: abdominal pain, diarrhea, melena, changes in stool. Denies: nausea, vomiting. Genitourinary: Denies: discharge. Musculoskeletal: Denies: back pain, joint pain. Skin: Denies: change in skin color, erythema. Neurological/Psychological: Denies: anxiety, numbness. Hematologic/Endocrine: Denies: bruising. Immunologic/Allergic: Denies: see HPI. Exam & Diagnostic Data Last 24 Hrs of Vital Signs/I&O Vital Signs Date Time Temp Pulse Resp B/P B/P Pulse O2 O2 Flow FiO2 Mean Ox Delivery Rate 02/24 0038 97.8 115 22 100/66 99 Nasal 3.0L Cannula 02/23 2236 97.4 115 14 108/69 95 Nasal 2.0L Cannula 02/24 2020 97.8 111 18 102/68 96 02/23 2015 102/68 02/23 1815 96.7 115 14 112/77 96 Nasal 2.0L Cannula 02/23 1809 96.7 115 14 112/77 02/23 1656 97.9 114 18 109/73 96 02/23 1447 100.0 119 20 102/74 96 Nasal 3.0L Cannula Intake & Output 02/24 0800 02/24 0000 02/23 1600 Intake Total 1000 0 Output Total Balance 1000 0 Intake, IV 1000 Intake, Oral 0 Patient 0 lb Weight Weight Reported by Patient Measurement Method Physical Exam General Appearance Alert, Oriented X3, Cooperative, No Acute Distress Skin No Rashes Skin Temp/Moisture Exam: Warm/Dry Sepsis Skin Exam (color): Normal for Ethnicity HEENT Atraumatic, PERRLA, EOMI, Mucous Membr. moist/pink Neck Supple, No JVD, No thryomegaly, +2 Carotid Pulse wo Bruit Lymphatic Axillary nl, Cervical nl Cardiovascular Regular Rate, Normal S1, Normal S2, No Murmurs, JVD Lungs Clear to Auscultation, Normal Air Movement Abdomen Normal Bowel Sounds Neurological Normal Speech, Strength at 5/5 X4 Ext, Normal Tone, Sensation Intact, Cranial Nerves 3-12 NL, Reflexes 2+ Extremities No Clubbing, No Cyanosis, Normal Pulses, No Tenderness/Swelling, 2+ pitting edema, R > L , erythema Vascular Normal Pulses, Pulses Symmetrical Sepsis Peripheral Pulse Location: Dorsalis Pedis Sepsis Peripheral Pulse Exam: Normal Body Front and Back (Adult) 1) pedal edema 2+ pitting R > L 2) abdominal distention, mass size 10 cm x 12 cm, central vertical scars. Last 24 Hrs of Labs/Yuri: Laboratory Tests 02/23/172009: Urinalysis MOD H, Urine Color BROWN H, Urine Clarity TURBD H, Urine pH 6.0, Ur Specific [place] >= 1.030, Urine Protein 100 H, Urine Ketones NEG, Urine Nitrite NEG, Urine Bilirubin NEG, Urine Urobilinogen 1.0, Ur Leukocyte Esterase LARGE H, Ur Microscopic SEDIMENT EXAMINED, Urine RBC 3-5, Urine WBC > 75 H, Ur Epithelial Cells MANY H, Urine Mucus MANY H, Urine Hemoglobin LARGE H, Urine Glucose NEG 02/23/17 1707: Troponin I 0.05 02/23/17 170: Anion Gap 10, Estimated GFR > 60, BUN/Creatinine Ratio 61.7 H, Glucose 113 H, Calcium 8.2 L, Total Bilirubin 0.2, AST 57, ALT 77 H, Alkaline Phosphatase 209 H, Keh-O-A[place]zz[place]av[place] Pept 4780 H, Total Protein 5.8 L, Albumin 2.1 L, Globulin 3.7, Albumin/Globulin Ratio 0.6 L, CBC w Diff NO MAN DIFF REQ, RBC 3.17 L, MCV 87.3, MCH 28.4, RDW 18.1 H, MPV 7.5, Gran % 84.4 H, Lymphocytes % 7.9 L, Monocytes % 7.6, Eosinophils % 0.1, Basophils % 0 L, Absolute Granulocytes 9.9 H, Absolute Lymphocytes 0.9 L, Absolute Monocytes 0.9 H, Absolute Eosinophils 0, Absolute Basophils 0, PUBS MCHC 32.6 L Microbiology 02/24 0114 URINE ROUT: Urine Culture - ORD 02/24 0041 STOOL: Clostridium difficile Toxin A & B - RECD 02/23 2319 STOOL: Cryptosporidium Antigen - ORD 02/23 2319 STOOL: Giardia Antigen (YURI) - ORD Diagnostic Data EKG Results Normal sinus rhythm, tachycardia, normal axis. CXR Results Exam is somewhat limited due to rotation. Lung volumes remain diminished with moderate basilar opacities again identified largely unchanged, atelectasis and/or infiltrate with underlying effusions. A right-sided PICC line is identified tip at the SVC right atrial junction. IMPRESSION: Stable appearing chest x-ray with diminished volumes atelectasis and/or infiltrate and underlying effusions. Other Results RAD - XRY-PORTABLE ABDOMEN No evidence of free air under the diaphragm. 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 At the time of admission, temperature 100.0 (his MAXIMUM TEMPERATURE) 6, normal S2 97.9, pulse rate 111-119, respiration 20, blood pressure 102/74, pulse ox-96% on 3 L (currently not on any home oxygen). Lab findings indicated leukocytosis WBC 11.7 with granulocytosis 84%, anemia (hemoglobin 9.0-Baseline around 9), normal platelets. Normal electrolytes, BUN 37 (likely dehydration), serum creatinine 0.6. Hepatic panel-AST 57, ALT 77, slightly elevated alkaline phosphatase (209-likely biliary and or malignancy), elevated proBNP 4780 (likely fluid retention), albumin 2.1 (likely malnutrition from malignancy), urinalysis revealed turbid urine, elevated protein, urine nitrites-negative (Gram-Negative Rods), Leukocyte Esterase-Large, Pyuria WBC above 75, Hemoglobin Large, with a lot of epithelial cells. EKG revealed sinus tachycardia, heart rate 119, normal axis, no ST-T wave changes noted. Radiological findings-chest x-ray did not reveal any acute pulmonary process, stable appearing chest x-ray with diminished volumes atelectasis and infiltrate and underlying effusions. Differential diagnosis: #1 tachycardia (secondary to dehydration, decreased preload, infection, malignancy) #2 bacteriuria #3 diarrhea #4 competitions of abdominal malignancy Below is the problem list and plan: #1 tachycardia-likely secondary to dehydration from diarrhea. Ascertain the status of nutrition, TPN versus by mouth. Nothing by mouth at this time. Cardiology was consulted, during the last admission who recommended increasing the dose of beta gladys. Continue to monitor the patient on telemetry. May have to increase the dose of beta gladys, to avoid cardiac myopathy. Currently on supplemental oxygen, and might have to wean off, based upon the requirement. #2 diarrhea-check C. difficile. Although the patient did not receive any antibiotic and oral chemotherapy, but the patient has been in a healthcare facility periodically. Avoid antibiotics at this time. #3 abnormal urinalysis-likely bacteriuria and or a gram-positive cocci bacteriuria. The patient develops any fever, or has any abnormal vital signs; consider covering with the penicillin. #4 history of PE-switch the low molecular weight heparin to IV heparin at this time. In the event of GI bleed, could easily be discontinued. H&H is currently stable at this time. Continue to monitor C BC every 24 hours. Since the patient is malignancy, it is important to have patient on adequate ventilation. #5 abdominal malignancy- notify general surgery, of the patient's admission as courtesy. If the patient lives any acute abdomen, not stat. Patient to follow- up with his yearly appointment after he is discharged. #6 DVT prophylaxis-intravenous heparin. As Ranked By This Provider Problem List: 1. History of seizures 2. Pseudomyxoma peritonei Core Measures/Miscellaneous Acute Coronary Syndrome ACS Diagnosis: No Cerebrovascular Accident CVA/TIA Diagnosis: No Congestive Heart Failure CHF Diagnosis: No VTE (View Protocol) VTE Risk Factors: Acute medical illness, Age > 40 [facility] d/t: No contraindications No VTE Pharm Prophylaxis d/t: No contraindications VTE Diagnosis: No VTE Type: NONE VTE Confirmed by (Test): NONE Sepsis (View Protocol) Severe Sepsis Present: No Septic Shock Septic Shock Present: No Miscellaneous Documentation Attending Case Discussed With: KAIT SANTOS MD Primary Care Physician: GARRETT MACIAS MD Patient sees these Specialists Dr. French. 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 Patient reports that around 6 pm while he was sleeping, he had one episode of panic attack. At that time, the patient had palpitations, chest pain and difficulty breathing. The episode lasted for a couple of seconds. In addition to this, the patient has also been having diarrhea, had 4 loose stools this morning. Patient states that he started having diarrhea since his previous discharge. He also reports of abdominal discomfort and states that he started eating food orally in rehab since his discharge. Patient also reports of discomfort in urinary area. Labs and Vitals as above. CXR Stable appearing chest x-ray with diminished volumes atelectasis and/or infiltrate and underlying effusions. ABD Xray No evidence of free air under the right or left diaphragm. There is large bilateral pleural effusions and dense lung bases likely due to underlying infiltrate/consolidation. No abnormally dilated bowel loop. 02/17/17 (previous admission) Abdominal/Pelvis CT showed increasing anasarca, unchanged large gas containing pelvic mass with slight decrease in amount of air. RLQ post-surgical changes. GB not definitively defined. 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 Aragon and his Metoprolol dose was increased to 75 mg twice a day. Patient was given 10mg of Cardizem and 25 mg of PO Metoprolol. Will continue on his previous dose of metoprolol for now and have cardiology evaluate him in am. Patient was evaluated by Psyc in previous admission, will continue zoloft 50 mg daily and inc to 100 on 02/26/17 Patient has chronic price cath, his urinanlysis is turbid brown this time and patient also reports of discomfort. Please consider ID consult in am for decision regarding antibiotic treatment. Will get abdominal usg and Abd Xray Stool sent for C. diff and ova parasite Patient has Guiac positive stools in ER, however will hold lovenox for now and start patient on heprin drip as having a malignancy predisposes him to having more clots. If he bleeds, will discontinue heprin drip. Will continue home medications including Dilantin 200 mg PO BID and Keppra 1000 mg PO BID Please consider nutrition consult in am. Patient might be having TPN related tachycardia. 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 Then patient was readmitted twice for tachycardia. Medications titrated and sent to Rehab. Patient had pending appointment onco-surgeon at [place] on February 25. This afternoon patient complained of palpitations and to rehabilitation when he was sleeping, associated with chest pressure, mild shortness of breath which eventually resolved. According to note patient had 4 watery dark colored stool. No nausea or vomiting. Patient has chronic abdominal pain. Because of his persistent tachycardia he was sent to ER. Currently Patient denies chest pain, palpitations , shortness of breath, dizziness, loss of consciousness. He has chronic abdominal pain and distention. His chronic Price placed, which was changed in ER. He is on TPN, and also eating toast and salads at rehabilitation. Given patient's mild cognitive impairment he is a poor historian. Vitals: T max 100, HR 110s to 120s, RR 20, blood pressure 109/73, saturating well on 3 L nasal cannula On examination: A O 3, cooperative, no acute distress , neck supple, JVD elevated, no lymphadenopathy, mucosa dry, does not move left lower extremity full extent because of heaviness, bilateral pedal edema, no obvious skin rashes or inflammation CVS: S1-S2, RRR, tachycardia. RS: Clear to auscultate bilaterally. Abdomen: Soft, tender, mildly distention, surgical scar, suprapubic lump palpated, bowel sounds present. Scrotal swelling. Price catheter : Cloudy urine and rectal examination done in ER shows fecal occult blood, no evidence of reinaldo blood. Stool was watery Labs: WBC 11.7, neutrophils 84%, hemoglobin 9.0, platelets 370, sodium 143, potassium 4.2, chloride 103, bicarbonate 28, BUN 37, creatinine 0.6, glucose 113 , calcium 8.2, AST 57, ALT 77, alkaline phosphatase 209, proBNP 4780, total protein 5.8, albumin 2.1 UA brown colored, turbid, large leukocyte esterase, WBC more than 75, large hemoglobin, many epithelial cells and mucus. CXR: Stable appearing chest x-ray with diminished volumes atelectasis and/or infiltrate and underlying effusions X ray Abdo: No evidence of free air under the diaphragm. EKG: sinus tachy A and P 61-year-old male with complicated past medical history significant for abdominal tumor unable for resection with a right hemicolectomy was transferred to [facility] for further management. His tumor was not resected at that time. Patient was admitted twice thereafter for tachycardia. He has follow-up appointment with onco-surgeon on February 25, when asked about it patient refuses to follow-up. Patient has chronic Price catheter with dark turbid urine, Prcie was changed in ER. Patient was discharged on TPN, currently started oral diet. It should be noted that patient was suggested to be nothing by mouth at discharge. He was sent from [place] facility for persistent tachycardia patient's heart rate in the 110s to 120s. He also appears to have 4-5 watery bowel movements today with dark color and FOBT positive. On examination he has anasarca. Currently tachycardia can be reactive and multifactorial, secondary to malnutrition, anemia, intravascular volume depletion, decreased preload secondary to tumor pressure on inferior vena cava, ? Micronutrient deficiency. Infection and ACS should be ruled out. PE can be one of the possibility but patient is on therapeutic Lovenox. At this point given his fecal occult blood positive, short-acting anticoagulation will be started. I had a detailed discussion with patient regarding multiple problems, questionable UTI, GI bleed, treatment of pulmonary embolism, treatment of intra-abdominal tumor. Patient states that "leave it as it is and let it take its own course, I do not want any other investigations, talk to my brother". I personally called his brother was aware of risks and benefits of anticoagulation with respect to pulmonary embolism and GI bleed, I also discussed about not treating urinary colonization at this time. Patient's brother states that patient may be depressed and may not be in his right mind to take decisions, he wants everything to be done, arrangements should be made to follow up with onco-surgeon. Urine appears to be colonized, will need ID opinion. Given his elevated JVD there is a concern regarding tachycardia associated cardiomyopathy. + Tachycardia + Intra-abdominal tumor pseudomyxoma peritonei + Chronic Price + Chronic iron deficiency anemia with hemoglobin trending down + Currently on TPN + Colonization versus catheter associated UTI + elevated alkaline phosphatase + History of PE + Suspected GI bleed with FOBT positive + Malnutrition + Anasarca + History of seizure, depression - Place in observation on telemetry - Continuous telemetry monitoring - Continue by mouth Cardizem and metoprolol - Consult cardiology, - 2-D echo if okay with cardiology - nutritional consult - Blood cultures urine culture - ID consult for suspected catheter associated UTI with history of VRE - Trend troponin and EKG - Right upper quadrant ultrasound to rule out acalculous cholecystitis - Stool guaiac, stool C. difficile, culture - Check magnesium - Replace electrolytes - Continue TPN - Nothing by mouth -Discontinue subcutaneous Lovenox for PE ; start on heparin drip, stop heparin drip if H&H dropping, any reinaldo blood in stool - Continue rest of his home medications - Full cord, had a detailed discussion with patient's brother
--- NOTE | 2017-02-23 23:47 | RADIOLOGY REPORT ---
EXAMINATION: XR PORTABLE ABDOMEN CLINICAL INFORMATION: Tenderness. Tenderness. Concern for free air. COMPARISON: Portable abdomen 02/11/2017. Portable chest 02/23/2017 TECHNIQUE: Erect AP view of the abdomen. FINDINGS: No evidence of free air under the right or left diaphragm. There is large bilateral pleural effusions and dense lung bases likely due to underlying infiltrate/consolidation. No abnormally dilated bowel loop. IMPRESSION: No evidence of free air under the diaphragm.
--- NOTE | 2017-02-23 23:58 | NUR ---
DR. SANTOS AT BEDSIDE FOR EVAL.
--- NOTE | 2017-02-24 00:46 | NUR ---
PHARM CALLED FOR NYSTATIN CREAM.
--- NOTE | 2017-02-24 00:46 | NUR ---
PT HAD LIQUID DARK BROWN STOOL IN BEDPAN, SMALL AMOUNT. STOOL CULTURE COLLECTED AND SENT TO LAB. [facility] PROVIDED AND BEDSHEETS CHANGED.
--- NOTE | 2017-02-24 00:57 | NUR ---
SPOKE WITH LAB: C.DIF CULTURE IS BEING RUN, HOWEVER, THERE WAS NOT ENOUGH SAMPLE FOR THE GIARDIA TEST, ONLY C.DIF IS GOING TO BE RUN AT THIS TIME.
--- NOTE | 2017-02-24 01:29 | NUR ---
PT ADMITTED TO ROOM 187-1.
--- NOTE | 2017-02-24 01:48 | NUR ---
report given to argelia LOVE. heparin drip to be started when accurate weight is obtained during transfer from ED stretcher to hospital bed.
--- NOTE | 2017-02-24 02:30 | NUR ---
PT TRANSPORTED TO [facility] ON HAZARDOUS WASTE MATERIAL TECHNICIAN WITH THIS RN. AN ACCURATE WEIGHT WAS OBTAINED VIA CRAIG LIFT 201.8 POUNDS. HEPARIN DRIP STARTED AND CONFIRMED WITH TRENA LOVE.
[2017-02-24 02:36] VITALS: BP 100/72
[2017-02-24 06:51] VITALS: BP 114/74
[2017-02-24 08:05] LABS: ABSOLUTE BASOPHIL COUNT 0 /CUMM (0.0-0.2); ABSOLUTE EOSINOPHIL COUNT 0 /CUMM (0.0-0.7); ABSOLUTE GRANULOCYTE CT 10.4 /CUMM (1.4-6.5); BASOPHIL % 0.3 % (0.0-2.0); EOSINOPHIL % 0.1 % (0-5); GRANULOCYTE % 83.5 % (42.2-75.2); HEMATOCRIT 25.6 % (42-52); MEAN CORPUSCULAR HGB 28.5 PG (27.0-31.0); MEAN PLATELET VOLUME 8.9 FL (7.4-10.4); PLATELET COUNT 321 /CUMM (130-400); RBC DISTRIBUTION WIDTH 18.6 % (11.5-14.5); RED BLOOD CELL CT 2.87 /CUMM (4.70-6.10); WHITE BLOOD CELL COUNT 12.4 /CUMM (4.8-10.8)
[2017-02-24 08:19] LABS: PTT 25 SEC (25-37)
--- NOTE | 2017-02-24 13:18 | PN- Att Addend ---
Attending MD Review Statement Attending Statement Attending MD Statement: examined this patient, discuss w/resident/PA/CIRCULATOR, agreed w/resident/PA/CIRCULATOR, reviewed EMR data (avail), discussed w/nursing, discussed w/ case mgmt Attending Assessment/Plan: Laboratory Tests 02/24/17 0704: Anion Gap 6, Estimated GFR > 60, BUN/Creatinine Ratio 54.3 H, APTT 25, CBC w Diff NO MAN DIFF REQ, RBC 2.87 L, MCV 89.0, MCH 28.5, RDW 18.6 H, MPV 8.9, Gran % 83.5 H, Lymphocytes % 8.3 L, Monocytes % 7.8, Eosinophils % 0.1, Basophils % 0.3, Absolute Granulocytes 10.4 H, Absolute Lymphocytes 1.0 L, Absolute Monocytes 1.0 H, Absolute Eosinophils 0, Absolute Basophils 0, PUBS MCHC 32.0 L 02/23/172009: Urinalysis MOD H, Urine Color BROWN H, Urine Clarity TURBD H, Urine pH 6.0, Ur Specific [place] >= 1.030, Urine Protein 100 H, Urine Ketones NEG, Urine Nitrite NEG, Urine Bilirubin NEG, Urine Urobilinogen 1.0, Ur Leukocyte Esterase LARGE H, Ur Microscopic SEDIMENT EXAMINED, Urine RBC 3-5, Urine WBC > 75 H, Ur Epithelial Cells MANY H, Urine Mucus MANY H, Urine Hemoglobin LARGE H, Urine Glucose NEG 02/23/17 1707: Troponin I 0.05 02/23/17 1707: Anion Gap 10, Estimated GFR > 60, BUN/Creatinine Ratio 61.7 H, Glucose 113 H, Calcium 8.2 L, Total Bilirubin 0.2, AST 57, ALT 77 H, Alkaline Phosphatase 209 H, Fqo-Z-Joygpauleca Pept 4780 H, Total Protein 5.8 L, Albumin 2.1 L, Globulin 3.7, Albumin/Globulin Ratio 0.6 L, CBC w Diff NO MAN DIFF REQ, RBC 3.17 L, MCV 87.3, MCH 28.4, RDW 18.1 H, MPV 7.5, Gran % 84.4 H, Lymphocytes % 7.9 L, Monocytes % 7.6, Eosinophils % 0.1, Basophils % 0 L, Absolute Granulocytes 9.9 H, Absolute Lymphocytes 0.9 L, Absolute Monocytes 0.9 H, Absolute Eosinophils 0, Absolute Basophils 0, PUBS MCHC 32.6 L Microbiology 02/24 0041 STOOL: Clostridium difficile Toxin A & B - COMP Vital Signs Date Time Temp Pulse Resp B/P B/P Pulse O2 O2 Flow FiO2 Mean Ox Delivery Rate 02/24 1037 Nasal 2.0L Cannula 02/24 0651 98.7 80 20 114/74 97 Room Air 02/24 0256 Nasal 3.0L Cannula 02/24 0236 98.2 116 20 100/72 97 Nasal 3.0L Cannula 02/24 0038 97.8 115 22 100/66 99 Nasal 3.0L Cannula 02/23 2236 97.4 115 14 108/69 95 Nasal 2.0L Cannula 02/24 2020 97.8 111 18 102/68 96 02/23 2015 102/68 02/23 1815 96.7 115 14 112/77 96 Nasal 2.0L Cannula 02/23 1809 96.7 115 14 112/77 02/23 1656 97.9 114 18 109/73 96 02/23 1447 100.0 119 20 102/74 96 Nasal 3.0L Cannula Pt seen and examined at bedside. Pt gives h/o feeling sob prior to admission and also felt like having a panic attack. Pt also has leg swelling b/l pitting secondary to mass compressing on IVC. Pt brought it secondary to tachycardia and sob at facility. Pt has h/o PE 2-3 yrs back and currently on heparin drip. Will d/w cardiology if we should cont full dose anticoagulation vs switching him to dvt prophylaxis dose. Also we will need to talk to gen surgery to see if they will coordinate with [place] to address his abdominal mass issue. d/w pt the care plan.
--- NOTE | 2017-02-24 13:24 | PN- Housestaff ---
Subjective Follow-up For: Tachycardia Complaints: no complaints Tele-Events Since Last Visit: Normal sinus rhythm, heart rate between 110-112, PVCs Subjective: She was seen and examined at the bedside. Initially he was not want to talk, because he wanted to sleep. Later in the afternoon, he told that he doesn't want to go to surgery. According to the nursing staff, his appetite is very poor. Discussed with the bulk receiver , we made the changes into TPN. Review of Systems Constitutional: Denies: no symptoms. Objective Last 24 Hrs of Vital Signs/I&O Vital Signs Date Time Temp Pulse Resp B/P B/P Pulse O2 O2 Flow FiO2 Mean Ox Delivery Rate 02/24 1447 98.1 102 18 102/74 95 Room Air 02/24 1037 Nasal 2.0L Cannula 02/24 0800 95 Nasal 3.0L Cannula 02/24 0651 98.7 80 20 114/74 97 Room Air 02/24 0256 Nasal 3.0L Cannula 02/24 0236 98.2 116 20 100/72 97 Nasal 3.0L Cannula 02/24 0038 97.8 115 22 100/66 99 Nasal 3.0L Cannula 02/23 2236 97.4 115 14 108/69 95 Nasal 2.0L Cannula 02/23 2020 97.8 111 18 102/68 96 02/23 2015 102/68 Intake & Output 02/24 1600 02/24 0800 02/24 0000 Intake Total 308. 130 1000 Output Total Balance 308. 130 1000 Intake, IV 208. 130 1000 Intake, Oral 100 Number 2 Bowel Movements Patient 91.172 kg 91.172 kg Weight Physical Exam General Appearance: Alert, Oriented X3, Cooperative, No Acute Distress Cardiovascular: Normal S1, Normal S2 Lungs: decrease air entry in to right lower base Abdomen: Soft, tenderness and scar kyung at the middle of lower abdoman Neurological: Normal Speech Extremities: No Clubbing, No Cyanosis, bilateral lower extremeties edema Current Medications: Current Medications Sig/Ghulam Start time Last Medication Dose Route Stop Time Status Admin Ceftriaxone Sodium 1,000 MG DAILY 02/23 2315 DC IV Heparin Sodium 25,000 UNIT Q24H 02/24 0030 AC 02/24 (Porcine) IV 0221 Sodium Chloride 500 ML Levetiracetam 1,000 MG BID 02/24 0100 AC 02/24 PO 1035 Metoprolol Tartrate 75 MG DAILY 02/24 1000 AC 02/24 PO 1035 Metoprolol Tartrate 25 MG ONCE ONE 02/23 194 DC PO 02/23 194 Nystatin 1 FAROOQ TID 02/23 2305 02/24 TOP 1015 Omeprazole 40 MG DAILY AC 02/24 0700 AC 02/24 PO 0700 Ondansetron HCl 4 MG Q6P PRN 02/24 0030 AC PO Oxybutynin Chloride 5 MG DAILY 02/24 1000 AC 02/24 PO 1035 Phenytoin 200 MG BID 02/24 0100 AC 02/24 PO 1036 Sertraline HCl 50 MG DAILY 02/24 1000 AC 02/24 PO 1035 Sodium Chloride 1,000 ML Q6H 02/23 2200 DC 02/23 IV 2220 Sodium Chloride 1,000 ML BOLUS ONE 02/23 1945 DC 02/23 IV 02/23 Trazodone HCl 50 MG AT BEDTIME 02/24 2200 AC PO Last 24 Hrs of Lab/Yuri Results Last 24 Hrs of Labs/Mics: Laboratory Tests 02/24/17 0704: Anion Gap 6, Estimated GFR > 60, BUN/Creatinine Ratio 54.3 H, APTT 25, CBC w Diff NO MAN DIFF REQ, RBC 2.87 L, MCV 89.0, MCH 28.5, RDW 18.6 H, MPV 8.9, Gran % 83.5 H, Lymphocytes % 8.3 L, Monocytes % 7.8, Eosinophils % 0.1, Basophils % 0.3, Absolute Granulocytes 10.4 H, Absolute Lymphocytes 1.0 L, Absolute Monocytes 1.0 H, Absolute Eosinophils 0, Absolute Basophils 0, PUBS MCHC 32.0 L 02/23/17 2010: Urinalysis MOD H, Urine Color BROWN H, Urine Clarity TURBD H, Urine pH 6.0, Ur Specific [place] >= 1.030, Urine Protein 100 H, Urine Ketones NEG, Urine Nitrite NEG, Urine Bilirubin NEG, Urine Urobilinogen 1.0, Ur Leukocyte Esterase LARGE H, Ur Microscopic SEDIMENT EXAMINED, Urine RBC 3-5, Urine WBC > 75 H, Ur Epithelial Cells MANY H, Urine Mucus MANY H, Urine Hemoglobin LARGE H, Urine Glucose NEG Microbiology 02/24 0114 URINE ROUT: Urine Culture - COLB 02/24 0041 STOOL: Clostridium difficile Toxin A & B - COMP 06/27 2319 STOOL: Cryptosporidium Antigen - CAN Cancelled: SEE ABOVE 02/23 2319 STOOL: Giardia Antigen (YURI) - CAN Cancelled: SEE ABOVE Assessment/Plan Assessment: Past medical history * 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 Proctor over the phone, he thinks that is nothing for him to do actively. He is Convinced with transferring to [facility]. Discussed with Dr. Aragon. He thinks continue the same medication for tachycardia. We will discuss tomorrow about the IV heparin We'll place psychiatry consult tomorrow Diet-regular diet DVT prophylaxis-IV heparin CODE STATUS-full code Problem List: 1. Lower GI bleed 2. Pseudomyxoma peritonei 3. History of seizures 4. Sinus tachycardia Pain Ratin Pain Location: Abdomen Pain Goal: Remain pain free Pain Plan: Avoid NSAIDs Tomorrow's Labs & Rationales: not required DVT/Prophylaxis: mechanical, pharmacological
--- NOTE | 2017-02-24 13:45 | Cons- Cardiology ---
General Information and HPI Consulting Request Date of Consult: 02/24/17 Requested By: MANPREET ROBLERO MD History of Present Illness: Mr. Carrion is a 61 year old male with history of pulmonary embolism. He also carries a history of seizures and has a malignant abdominal mass status post right hemicolectomy. There is a residual pelvic tumor. This patient has been evaluated multiple times for tachycardia and has been only partially cooperative with workup. The patient states that he came her yesterday because he sat up and lost his breath causing him to collapse. According to the ER record the patient had diarrhea with tachycardia up to the 120bpm range along with palpitations. He does have shortness of breath unless at complete rest and also reports intermittent lightheadedness and palpitations. Previously, when tachycardic he also experienced some chest discomfort. The patient is noted to be mildly tachycardic with moderate anemia. The patient has chronic leg edema and complains of pain with palpation. He refuses full examination. It may be recalled that this patient previously reported episodes of lightheadedness with loss of consciousness but these episodes appear to have been related to seizures. The patient has been VRE positive. Hematochezia was also reported on a recent hospital admission. Allergies/Medications Allergies: Coded Allergies: NO KNOWN ALLERGIES (01/11/14) Home Med List: Acetaminophen (8 Hour) 650 MG TABLET.ER 1 TAB PO Q4H PRN PAIN/TEMP/> 101 ( Reported) Acetaminophen (Acephen) 650 MG SUPP.RECT 1 SUPP IL Q4H PRN PAIN/TEMP>101 ( Reported) Albuterol Sulfate 2.5 MG/3 ML (0.083 %) VIAL.NEB 1 Vial INH/BRIT Q6H PRN SOB ( Reported) Bisacodyl 10 MG SUPP.RECT 1 SUP RC DAILY PRN CONSTIPATION (Reported) Enoxaparin Sodium (Lovenox) 100 MG/ML SYRINGE 100 MG SC Q12H BLOOD THINNER ( Reported) Ferrous Sulfate 325 MG (65 MG IRON) TABLET.DR 1 TAB PO DAILY anemia Folic Acid 1 MG TABLET 1 TAB PO DAILY SUPPLEMENT (Reported) Levetiracetam (Keppra) 1,000 MG TABLET 1 TAB PO Q12H seizure prophylaxis Loperamide HCl (Imodium A-D) 2 MG TABLET 1 TAB PO Q6H PRN LOOSE STOOL ( Reported) Magnesium Hydroxide (Milk Of Magnesia) 400 MG/5 ML ORAL.SUSP 30 ML PO DAILY PRN CONSTIPATION (Reported) Magnesium Oxide 400 MG TABLET 400 MG PO BID hypomagnesemia Metoprolol Tartrate (Lopressor) 50 MG TABLET 75 MG PO DAILY HEART (Reported) Multivitamin (Daily Multiple Vitamin) 1 EACH TABLET 1 TAB PO DAILY SUPPLEMENT (Reported) Na Phos,M-B/Na Phos,Di-Ba (Fleet Enema) 19 GRAM-7 GRAM/118 ML ENEMA 1 E RC DAILY PRN CONSTIPATION (Reported) Omeprazole 40 MG CAPSULE.DR 1 CAP PO DAILY acidity Ondansetron HCl 4 MG TABLET 1 TAB PO Q6P PRN N/V (Reported) Oxybutynin Chloride 5 MG TABLET 1 TAB PO DAILY (Reported) Phenytoin Sodium Extended 100 MG CAPSULE 2 CAP PO BID SEIZURES (Reported) Polyethylene Glycol 3350 (Miralax) 17 GRAM POWD.PACK 1 PAC PO DAILY GI ( Reported) dissolve in water Sertraline HCl (Zoloft) 50 MG TABLET 1 TAB PO DAILY depression please increase to 100mg after 7 days (on 02/26/2017) [TPN] TPN (Reported) Trazodone HCl 50 MG TABLET 1 TAB PO QHS INSOMNIA (Reported) Review of Systems Review of Systems: A review of systems is not obtainable from this patient due to poor cooperation. Past History Travel History Traveled to [place] past 21 day No Medical History Blood Transfusion Hx: No Neurological: seizure, childhood encephalitis EENT: NONE Cardiovascular: syncope (possible unwitnessed) Respiratory: pulmonary embolism (06/2014) Gastrointestinal: GERD (mild), hiatal hernia, large pelvic mass Hepatic: NONE Renal: benign prost hyperplasia Musculoskeletal: osteopenia; TL compression fractures Psychiatric: NONE Endocrine: osteopenia Blood Disorders: anemia, PE (06/2014) Cancer(s): NONE INSPECTING ENGINEER/Reproductive: NONE Surgical History Surgical History: colon resection (s/p right hemicolectomy 12/2016), wrist surgery Family History Relations & Conditions If Any: FATHER, , Age 40-50; Cause: Cancer of unknown origin. MOTHER, , Age 50-60; Cause: Cancer of unknown origin. BROTHER ([employer]). Relation not specified for: *No pertinent family history Psychosocial History Services at Home: None Primary Language: Bhutanese Smoking Status: Never Smoked ETOH Use: denies use Illicit Drug Use: denies illicit drug use Living Will? yes Power of Oil Spreader Operator/HCP? unknown Name of POA/HCP: brother Functional Ability ADLs Unknown: dressing, eating, toileting, bathing. Ambulation: independent IADLs Unknown: shopping, housework, finances, food prep, telephone, transportation, medication admin. Exam & Diagnostic Data Vital Signs and I&O Vital Signs Date Time Temp Pulse Resp B/P B/P Pulse O2 O2 Flow FiO2 Mean Ox Delivery Rate 02/24 1037 Nasal 2.0L Cannula 02/24 0651 98.7 80 20 114/74 97 Room Air 02/24 0256 Nasal 3.0L Cannula 02/24 0236 98.2 116 20 100/72 97 Nasal 3.0L Cannula 02/24 0038 97.8 115 22 100/66 99 Nasal 3.0L Cannula 02/23 2236 97.4 115 14 108/69 95 Nasal 2.0L Cannula 02/24 2020 97.8 111 18 102/68 96 02/23 2015 102/68 02/23 1815 96.7 115 14 112/77 96 Nasal 2.0L Cannula 02/23 1809 96.7 115 14 112/77 02/23 1656 97.9 114 18 109/73 96 02/23 1447 100.0 119 20 102/74 96 Nasal 3.0L Cannula Intake & Output 02/24 1600 02/24 0800 02/24 0000 02/23 1600 02/23 0800 02/23 0000 Intake Total 130 1000 0 Output Total Balance 130 1000 0 Intake, IV 130 1000 Intake, Oral 0 Patient 201 lb 201 lb 0 lb Weight Weight Reported by Patient Measurement Method Physical Exam: General: WD/ overweight male in NAD; alert and oriented x 3 HEENT: NC/AT, PERRL, EOMI Neck: +ve JVD Heart: mildly tachycardic with regular rhythm Lungs: clear bilaterally Extremities: 2+ bilateral leg edema Assessment/Plan Assessment/Plan * This patient has mild tachycardia of unclear etiology. His anemia could certainly cause tachycardia but a pulmonary embolism, obstructive process related to his mass that will decrease venous return and thereby necessitate an increaed heart rate to maintain his cardiac output and dehydrate related to diarrhea could all be causes or contributing causes. The patient needs to maintain an adequate fluid balance to maintain his filling pressures. Although the IVC is not entirely closed, it is compressed by the mass which is likely leading to his leg edema and decreasing venous return therby causing tachycardia. Follow his H/H. His current level of tachycardia in the low 100's is not, in and of itself, a problem to the patient's health although it may be a manifestation of one of the above conditions. Continue his current dose of Metoprolol. I would readdress the issue of PE workup and discuss the risks of stopping or continuing anticoagulation with the patient. Monitor for active bleeding. * This patient has a normal EF with pleural effusions which likely contribute to his shortness of breath. His breathing is comfortable while lying flat. Consult Acknowledgment - Thank you for your consult request.
--- NOTE | 2017-02-24 14:09 | NUR ---
PHYSICAL THERAPY. Pt ADAMENTLY REFUSING PT EVALUATION DESPITE ENCOURAGEMENT. Pt UNABLE TO GIVE REASON. PT WILL F/U APPROPRIATE TO COMPLETE EVALUATION ABLE.
[2017-02-24 14:47] VITALS: BP 102/74
--- NOTE | 2017-02-24 16:13 | ULTRASOUND REPORT ---
EXAMINATION: US ABDOMEN LIMITED CLINICAL INFORMATION: Abdominal pain. Elevated alkaline phosphatase. Evaluate for biliary tree pathology and evaluate liver morphology. COMPARISON: Limited ultrasound of the abdomen dated 02/19/2017. TECHNIQUE: Real-time imaging of the right upper quadrant abdominal viscera. Examination is limited due to difficulties with patient positioning. FINDINGS: PANCREAS: The pancreatic body and portions of the head are visualized and appear mildly atrophic and otherwise unremarkable. Remainder of the pancreas is obscured by overlying bowel gas. LIVER/GALLBLADDER: Evaluation of the liver is limited due to the high intrathoracic location. There may be heterogeneous liver parenchyma. The liver demonstrates normal size and contour. There is an apparent pericapsular focal fluid collection with defined thin mccoy seen along the right lobe of the liver, measuring 5.8 x 2.0 x 2.4 cm in size. This correlates with an ectopically positioned gallbladder when reviewing prior CT scans. No pericholecystic fluid. No intrahepatic biliary duct dilatation. COMMON BILE DUCT: Normal in caliber measuring 0.4 cm in diameter. RIGHT KIDNEY: Not adequately assessed. FREE FLUID: Small right-sided pleural effusion is seen, unchanged from CT scan. IMPRESSION: 1. Limited exam due to difficulties with patient positioning and high intrathoracic location of liver. 2. Right kidney not fully seen. 3. Liver suboptimally assessed. There may be a heterogeneous liver parenchyma. 4. Small right-sided pleural effusion.
--- NOTE | 2017-02-24 19:45 | PN- General Surgery ---
Surgical Brief Attending Note Brief Attending Note: Patient to be evaluated tomorrow. 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 The complexity of his disease is such that surgical resection is not feasible at this hospital. From last discusssion, we was planned to have resection at [facility] soon. I see no reason to treat him at [place], as there is nothing we can provide for him other than palliation if surgical resection is not possible. That determination can only ascertained by [facility] surgeons. If he is becoming medically unstable from his malignancy, recommend transer to [facility].
[2017-02-24 21:42] VITALS: BP 110/70
[2017-02-24 23:14] LABS: PTT 38 SEC (25-37)
[2017-02-25 07:43] VITALS: BP 112/84
[2017-02-25 08:32] LABS: PTT 107 SEC (25-37)
--- NOTE | 2017-02-25 08:53 | NUR ---
Physical Therapy. Pt adamently refusing PT evaluation despite encouragement and education. PT will f/u as appropriate.
[2017-02-25] MEDS ORDERED: DILTIAZEM 24HR180 MG PO (09:06)
--- NOTE | 2017-02-25 09:10 | Discharge Summary ---
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 Vitals on admission : T:100.0 (his MAXIMUM TEMPERATURE) 6, pulse 97.9, respiratory rate : 20 blood pressure:102/74, pulse ox-96% on 3 L (currently not on any home oxygen). Pertinent labs on admission: leukocytosis WBC 11.7 with granulocytosis 84%, anemia (hemoglobin 9.0-Baseline around 9), normal platelets. Normal electrolytes, BUN 37 (likely dehydration), serum creatinine 0.6. Hepatic panel- AST 57, ALT 77, slightly elevated alkaline phosphatase (209-likely biliary and or malignancy), elevated proBNP 4780 (likely fluid retention), albumin 2.1 ( likely malnutrition from malignancy), urinalysis revealed turbid urine, elevated protein, urine nitrites-negative (Gram-Negative Rods), Leukocyte Esterase-Large, Pyuria WBC above 75, Hemoglobin Large, with a lot of epithelial cells. EKG revealed sinus tachycardia, heart rate 119, normal axis, no ST-T wave changes noted. Radiological findings-chest x-ray did not reveal any acute pulmonary process, stable appearing chest x-ray with diminished volumes atelectasis and infiltrate and underlying effusions. Differential diagnosis: #1 tachycardia (secondary to dehydration, decreased preload, infection, malignancy) #2 bacteriuria #3 diarrhea #4 competitions of abdominal malignancy. Following problems were addressed while patient was on telemetry floor: 1. Palpitations(sinus tachycardia): Probably secondary IVC compression in lower abdomen: Patient has been recurrently admitted with a similar complaints. On last admission metoprolol dose was increased to 75 mg twice a day still had heart rate was in 110s. Abdominal ultrasound was done during the last admission that showed IVC in the lower abdomen was compressed by the large mass but was patent. Although IVC was not completely obstructed but it had been compressed by the large abdominal mass that was leading to lower extremity edema with decreased venous return causing tachycardia. Patient was reevaluated by Dr. Aragon this time as well recommended to continue with the same dose of metoprolol. Patient would continue to have tachycardia unless abdominal tumor was removed. Anti-coagulation with IV heparin was continued on discharge home dose of Lovenox 100 mg twice a day is continued. 2. Uncontrolled anxiety and depression : Clinically patient was looking more anxious and depressed. Psych consult was obtained during the last admission, since then patient has been taking increased dose of Zoloft 50 mg daily. As per psych recommendations we'll increase the dose 100 mg daily on 02/26/2017 if tolerated. 0.25 Xanax twice a day as needed was added on discharge. It was recommended to pursue outpatient psychiatric care at [facility]( call [phone]) and schedule an intake appointment. 3. Abnormal urinalysis: Patient has chronic Sanchez, abnormal urinalysis findings were most likely due to colonization so he was monitored off antibiotics. 3. 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 Patient was still not a candidate for surgery as he appeared still malnourished on TPN( albumin levels) were low. TPN was continued in the hospital via PICC line. 4. History of PE on Lovenox: Subcutaneous lovenox SC 90 mg Q12H was continued 5. Seizure disorder on Dilantin and Keppra: Home medications including Dilantin 200 mg PO BID and Keppra 1000 mg PO BID were continued 6. GERD Home dose of prilosec 40 mg PO daily FULL CODE(patient just changed his CODE STATUS from DNR/DNI to full admit this time. Psych evaluated the patient mentioned that he has the capacity to make his own decisions Allergies: Coded Allergies: NO KNOWN ALLERGIES (01/11/14) Disposition Summary Disposition Principal Diagnosis: Palpitations(sinus tachycardia): Probably secondary IVC compression in lower abdomen Additional Diagnosis: Uncontrolled anxiety and depression Discharge Disposition: SNF Discharge Instructions General Discharge Information Code Status: Full Code Patient's Diet: Regular diet with TPN Patient's Activity: As tolerated Follow-Up Instructions/Appts: Please follow-up with your PCP within 1-2 weeks after discharge Please follow-up with your general internal medicine doctor within 1-2 weeks after discharge Medications at Discharge Discharge Medications: Continue taking these medications: Phenytoin Sodium Extended (Phenytoin Sodium Extended) 100 MG CAPSULE 2 Capsule ORAL TWICE DAILY Qty = 360 Comments: Last Taken: 02/25/17 Time: 9AM Multivitamin (Daily Multiple Vitamin) 1 EACH TABLET 1 Tablet ORAL DAILY Comments: Last Taken: NOT GIVEN IN HOSPITAL Time: Enoxaparin Sodium (Lovenox) 100 MG/ML SYRINGE 100 Milligram Inject into fatty tissue Q12H Comments: NOT GIVEN IN HOSPITAL Polyethylene Glycol 3350 (Miralax) 17 GRAM POWD.PACK 1 Packet ORAL DAILY Instructions: dissolve in water Comments: Last Taken: NOT GIVEN IN HOSPITAL Time: Trazodone HCl (Trazodone HCl) 50 MG TABLET 1 Tablet ORAL TAKE AT BEDTIME Comments: Last Taken: 02/24/17 Time: 9PM Oxybutynin Chloride (Oxybutynin Chloride) 5 MG TABLET 1 Tablet ORAL DAILY Comments: Last Taken: 02/25/17 Time: 9AM Folic Acid (Folic Acid) 1 MG TABLET 1 Tablet ORAL DAILY Comments: Last Taken: NOT GIVEN IN HOSPITAL Time: [TPN] As Directed Comments: UNIT VOLUME: 2280ML TPN PROVIDES 116.92 GRAMS OF PROTEIN PER DAY AMINO ACID 15% 6.06% DEXTROSE 70% 16.54% -WATER INTRALIPID 20% 20.00% 350.55 ML ADDITIVES ARE SHOWN PER UNIT SODIUM CHLORIDE 45.00MEQ 23.4% SODIUM ACETATE 120.00MEQ POTASSIUM CHLORIDE 125.00MEQ SODIUM PHOSPHATE 30.00MM CALCIUM GLUCONATE 10.00MEQ MAGNESIUM SULFATE (1 GRAM/2ML VIAL) 40.00MEQ MTE-5 CONC. 1.00ML PATIENT ADDITIVES INFUVITE/10ML (=10ML ADD TO EVERY UNIT, EVERY DAY) INFUSE SOLUTION IV AT RATE OF 95ML/HR FOR 24HRS, DAILY. *ADD 10ML MVI PRIOR TO INFUSING* INFUSE VIA 1.2 MICRON FILTER SET. REFRIGERATE. Last Taken: 02/18/17 Time: 2000 INFUSING AT 83.3 ML/HR LIPIDS INFUSING AT 14.6 ML/HR Acetaminophen (8 Hour) 650 MG TABLET.ER 1 Tablet ORAL Q4H as needed for PAIN/TEMP/> 101 Comments: Last Taken: NOT GIVEN IN HOSPITAL Time: Acetaminophen (Acephen) 650 MG SUPP.RECT 1 SUPPOSITORY RECTALLY Q4H as needed for PAIN/TEMP>101 Comments: Last Taken: NOT GIVEN IN HOSPITAL Time: Magnesium Hydroxide (Milk Of Magnesia) 400 MG/5 ML ORAL.SUSP 30 Milliliters ORAL DAILY as needed for CONSTIPATION Comments: Last Taken: NOT GIVEN IN HOSPITAL Time: Bisacodyl (Bisacodyl) 10 MG SUPP.RECT 1 Suppository RECTAL DAILY as needed for CONSTIPATION Comments: Last Taken: NOT GIVEN IN HOSPITAL Time: Na Phos,M-B/Na Phos,Di-Ba (Fleet Enema) 19 GRAM-7 GRAM/118 ML ENEMA 1 Enema RECTAL DAILY as needed for CONSTIPATION Comments: Last Taken: NOT GIVEN HOSPITAL Time: Albuterol Sulfate (Albuterol Sulfate) 2.5 MG/3 ML (0.083 %) VIAL.NEB 1 Vial Inhale Solution Q6H as needed for SOB Comments: Last Taken: NOT GIVEN IN HOSPITAL Time: Loperamide HCl (Imodium A-D) 2 MG TABLET 1 Tablet ORAL Q6H as needed for LOOSE STOOL Comments: Last Taken: NOT GIVEN IN HOSPITAL Time: Ondansetron HCl (Ondansetron HCl) 4 MG TABLET 1 Tablet ORAL EVERY SIX HOURS NEEDED as needed for N/V Comments: Last Taken: NOT GIVEN IN HOSPITAL Time: Magnesium Oxide (Magnesium Oxide) 400 MG TABLET 400 Milligram ORAL TWICE DAILY Qty = 10 Comments: NOT GIVEN IN HOSPITAL Ferrous Sulfate (Ferrous Sulfate) 325 MG (65 MG IRON) TABLET.DR 1 Tablet ORAL DAILY Qty = 60 Comments: Last Taken: NOT GIVEN IN HOSPITAL Time: Levetiracetam (Keppra) 1,000 MG TABLET 1 Tablet ORAL Q12H Qty = 60 Comments: Last Taken: 02/25/17 Time: 9AM Omeprazole (Omeprazole) 40 MG CAPSULE.DR 1 Capsule ORAL DAILY Qty = 30 Comments: Last Taken: 02/25/17 Time: 6AM Sertraline HCl (Zoloft) 50 MG TABLET 1 Tablet ORAL DAILY Qty = 30 Instructions: please increase to 100mg after 7 days (on 02/26/2017) Comments: Last Taken: 02/25/17 Time: 9AM Metoprolol Tartrate (Lopressor) 50 MG TABLET 75 Milligram ORAL TWICE DAILY Comments: Last Taken: 02/25/17 Time: 9AM Diltiazem HCl (Diltiazem 24HR ER) 180 MG CAP.ER.24H 1 Capsule ORAL DAILY Qty = 30 Comments: Last Taken: 02/25/17 Time: 12PM Start taking the following new medications: Alprazolam (Xanax) 0.25 MG TABLET 1 Tablet ORAL TWICE DAILY as needed for anxiety Qty = 60 No Refills Comments: NOT GIVEN IN HOSPITAL Copies To: COLLEEN SOSA,GARRETT Attending MD Review Statement Documenting Attending: ANNIKA SOSA,MANPREET Minaya Other Findings: Agree with the above discharge plan. See my separate attending note for more details.
--- NOTE | 2017-02-25 10:34 | PN-Observation ---
Observation Note Observation Note _ I have personally examined JUANY GONZALEZ. him disposition is uncertain at this time. Before a determination can be made, he requires continued observation for the following reasons [tachycardia]. Assessment/Plan Assessment: Past medical history * 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 * Generalized anasarca * Iron deficiency anemia-secondary to GI bleed * Pulmonary embolus on heparin * Supraventricular tachycardia -on metoprolol and diltiazem * Severe depression -sertaline * History of seizures -secondary to childhood encephalitis on Keppra * BPH * Persistent indwelling catheter Problem List: 1. Pseudomyxoma peritonei 2. History of seizures 3. Complicated urinary tract infection 4. Supraventricular tachycardia Plan: Discharge today Plan - * Discharged to short-term rehabilitation * Discussed with Dr. Proctor over the phone, he thinks that is nothing for him to do actively. He rcms transfer to [place]. * Discussed with Dr. Aragon. He thinks continue the same medication for tachycardia. * We continued heparin at the time of discharge * Diet-regular diet * DVT prophylaxis-IV heparin * CODE STATUS-full code DVT/Prophylaxis: mechanical, pharmacological Subjective Follow-up For: Tachycardia Pseudomyxomatous tumor Complaints: no complaints Tele-Events Since Last Visit: Normal sinus rhythm with sinus tachycardia at 3:30, heart rate between 97-120 with triplets and PVCs Subjective: Patient is seen and examined at the bedside. He does not have any active complaints. On further asking, he told that he has the back pain. Give Tylenol for it. Today we discussed in the detail about his abdominal tumor and its further management. At the end of the discussion, he was ready to go to [place], for surgery. Review of Systems Constitutional: Reports: no symptoms. Musculoskeletal: Reports: back pain. Objective Last 24 Hrs of Vital Signs/I&O Vital Signs Date Time Temp Pulse Resp B/P B/P Pulse O2 O2 Flow FiO2 Mean Ox Delivery Rate 02/25 1450 98.9 102 20 110/76 94 Nasal Cannula 02/25 1347 98 Nasal 2.0L Cannula 02/25 1303 Nasal 3.0L Cannula 02/25 1232 97.6 100 20 108/64 02/25 1221 100 108/64 02/25 0800 Nasal 3.0L Cannula 02/25 0743 97.6 82 20 112/84 97 Nasal Cannula 02/24 2142 98.9 112 20 110/70 97 02/24 1925 98 Nasal 2.0L Cannula Intake & Output 02/25 1600 02/25 0800 02/25 0000 Intake Total 1046.8 883.2 605.0 Output Total 600 250 350 Balance 446.8 633.2 255.0 Intake, IV 1046.8 250 Intake, Lipid 116.8 15.0 Intake, Oral 100 250 Intake, 666.4 90 TPN/PPN Number 1 Bowel Movements Output, Urine 600 250 350 Physical Exam General Appearance: Alert, Oriented X3, Cooperative, No Acute Distress Skin: pale Cardiovascular: Normal S1, Normal S2, murmur Lungs: decrease air entry on right base Abdomen: Soft, No Tenderness Neurological: Normal Speech Extremities: No Clubbing, No Cyanosis, bilateral lower extremeties edema Current Medications: Current Medications Sig/Ghulam Start time Last Medication Dose Route Stop Time Status Admin Acetaminophen 650 MG Q6P PRN 02/25 1045 DCD PO Acetaminophen 650 MG Q6P PRN 02/25 1030 DC MD Diltiazem HCl 180 MG BID 02/25 1400 DCD PO Diltiazem HCl 180 MG BID 02/25 1020 DC 02/25 PO 1220 Fat Emulsion 350 ML 1900 02/24 1900 DCD 02/24 Intravenous IV 02/25 1859 2107 Heparin Sodium 25,000 UNIT Q24H 02/24 0030 DCD 02/25 (Porcine) IV 1112 Sodium Chloride 500 ML Levetiracetam 1,000 MG BID 02/24 0100 DCD 02/25 PO 0950 Metoprolol Tartrate 75 MG BID 02/25 2200 DCD PO Metoprolol Tartrate 75 MG DAILY 02/24 1000 DC 02/25 PO 0950 Nystatin 1 FAROOQ TID 02/23 2305 DCD 02/25 TOP 0950 Omeprazole 40 MG DAILY AC 02/24 0700 DCD 02/25 PO 0617 Ondansetron HCl 4 MG Q6P PRN 02/24 0030 DCD PO Oxybutynin Chloride 5 MG DAILY 02/24 1000 DCD 02/25 PO 0950 Patient Medication 1 ED .STK-MED ONE 02/25 1406 DC Teaching ED 02/25 1407 Phenytoin 200 MG BID 02/24 0100 DCD 02/25 PO 0950 Sertraline HCl 50 MG DAILY 02/24 1000 DCD 02/25 PO 0950 Total Parenteral 1 UNIT 1900 02/24 1900 DCD 02/24 Nutrition IV 02/25 1859 2106 Trazodone HCl 50 MG AT BEDTIME 02/24 2200 DCD 02/24 PO 2111 Last 24 Hrs of Labs/Mics: Laboratory Tests 02/25/17 1040: Triglycerides 76 02/25/17 0700: APTT 107 *H 02/24/17 2230: APTT 38 H
[2017-02-25 12:21] VITALS: BP 108/64
[2017-02-25 12:32] VITALS: BP 108/64
--- NOTE | 2017-02-25 13:36 | Patient Discharge Instructions ---
Discharge Instructions General Discharge Information You were seen/treated for: Palpitations(sinus tachycardia): Probably secondary IVC compression in lower abdomen: Special Instructions: Please follow-up with the piece within 1-2 weeks after discharge Follow-up with the web development instructor Dr. Aragon and urologist Dr. Jones as an outpatient. Diet Continue normal diet: Yes Activity Activity Self Limited: Yes Acute Coronary Syndrome Inclusion Criteria At DC or during hospital stay patient has or had the following: ACS DIAGNOSIS No Discharge Core Measures Meds if any: Prescribed or Continued at Discharge Meds if any: NOT Prescribed or Continued at Discharge Congestive Heart Failure Inclusion Criteria At DC or during hospital stay patient has or had the following: CHF DIAGNOSIS No Discharge Core Measures Meds if any: Prescribed or Continued at Discharge Meds if any: NOT Prescribed or Continued at Discharge Cerebrovascular accident Inclusion Criteria At DC or during hospital stay patient has or had the following: CVA/TIA Diagnosis No Discharge Core Measures Meds if any: Prescribed or Continued at Discharge Meds if any: NOT Prescribed or Continued at Discharge Venous thromboembolism Inclusion Criteria VTE Diagnosis No VTE Type NONE VTE Confirmed by (Test) NONE Discharge Core Measures - Per Current guidelines, there needs to be overlap - treatment for the first 5 days of Warfarin therapy. - If discharged on Warfarin prior to 5 days of - overlap therapy, the patient will need to be - assessed for post discharge needs including - *Post discharge parental anticoagulation - *Warfarin and/or parental anticoagulation education - *Follow up date to check INR post discharge At least 5 days overlap therapy as Inpatient No Meds if any: Prescribed or Continued at Discharge Note: Overlap Therapy is Warfarin and Anticoagulant Meds if any: NOT Prescribed or Continued at Discharge
--- NOTE | 2017-02-25 13:58 | PN- Att Addend ---
Attending MD Review Statement Attending Statement Attending MD Statement: examined this patient, discuss w/resident/PA/CRYPTOLOGIC TECHNICIAN OPERATOR/ANALYST, agreed w/resident/PA/CRYPTOLOGIC TECHNICIAN OPERATOR/ANALYST, discussed with family, reviewed EMR data (avail), discussed w/ nursing, discussed w/case mgmt Attending Assessment/Plan: Laboratory Tests 02/25/17 1040: Triglycerides 76 02/25/17 0700: APTT 107 *H 02/24/17 2230: APTT 38 H Vital Signs Date Time Temp Pulse Resp B/P B/P Pulse O2 O2 Flow FiO2 Mean Ox Delivery Rate 02/25 1347 98 Nasal 2.0L Cannula 02/25 1303 Nasal 3.0L Cannula 02/25 1232 97.6 100 20 108/64 02/25 1221 100 108/64 02/25 0800 Nasal 3.0L Cannula 02/25 0743 97.6 82 20 112/84 97 Nasal Cannula 02/24 2142 98.9 112 20 110/70 97 02/24 1925 98 Nasal 2.0L Cannula 02/24 1600 Nasal 3.0L Cannula 02/24 1447 98.1 102 18 102/74 95 Room Air Pt will be dced back to [facility]. i will call the rehab and d/w the rehab physician plan for the patient in case he gets panic attacks. d/w pt as well as pts brother the care plan. Severe malnutrition- cont on TPN and po diet. Encourage pt to eat better and participate in PT.
[2017-02-25] MEDS ORDERED: XANAX0.25 M1 PO ×2 (14:19→14:20)
[2017-02-25 14:50] VITALS: BP 110/76
== END 2017-02-25 16:30 ==
LOC: ERH 14:44 → ERHI 21:26 → 1NO 21:26 → ENRESERV 02-24 01:16 → 1NO 02-24 02:32 → ENPENDDIS 02-25 14:25 → 1NO 02-25 16:30
PROVIDERS: Internal Medicine; Internal Medicine Endocrinology, Diabetes & Metabolism; Physician Assistant; ADMIT Internal Medicine
DX: R00.2 Palpitations (principal); I47.9 Paroxysmal tachycardia, unspecified; Z86.711 Personal history of pulmonary embolism; Z79.02 Long term (current) use of antithrombotics/antiplatelets; D64.89 Other specified anemias; N40.0 Benign prostatic hyperplasia without lower urinary tract symptoms
CPT/HCPCS: 1328; 1530; 1748; 36415; 74000; 81001; 82436; 87086; 87328; 87329; 93005; 93010; 96361; 96374; 96375; 96376; 97110-GP; 97161-GP; G0378; G8978-GP; G8979-GP; J1644

== ENCOUNTER 2017-03-10 22:47 | Inpatient (IN) | payer OTHER, MEDICARE ==
[~2017-03-10] VITALS: Ht 185.4 cm; Wt 90.7 kg
[~2017-03-10 22:47] MED LIST changes: +DILTIAZEM 24HR180 MG PO; +XANAX0.25 M1 PO
--- NOTE | 2017-03-10 22:55 | ED DYSPNEA/ASTHMA COMPLAINT ---
History of Present Illness General Chief Complaint: Dyspnea (COPD, CHF, Other) Stated Complaint: BIBA SOB Source: patient Exam Limitations: no limitations Vital Signs & Intake/Output Vital Signs & Intake/Output Vital Signs Date Time Temp Pulse Resp B/P B/P Pulse O2 O2 Flow FiO2 Mean Ox Delivery Rate 03/11 0644 97.5 115 18 81/50 95 Nasal 3.0L Cannula 03/11 0524 122 18 78/54 98 Nasal 3.0L Cannula 03/11 0303 97.5 123 18 77/52 98 Nasal 3.0L Cannula 03/11 0135 128 20 78/50 98 Nasal 3.0L Cannula 03/11 0110 130 12 84/48 98 Nasal 3.0L Cannula 03/11 0051 136 12 76/51 99 Nasal 3.0L Cannula 03/11 0025 99.0 136 12 74/46 96 Room Air 03/10 2330 Nasal 3.5L Cannula 03/10 2300 100.5 138 20 97/60 98 Nasal 3.0L Cannula ED Intake and Output 03/11 0000 03/10 1200 Intake Total Output Total Balance Patient 201 lb Weight Weight Reported by Patient Measurement Method Allergies Coded Allergies: NO KNOWN ALLERGIES (01/11/14) Reconcile Medications Acetaminophen (8 Hour) 650 MG TABLET.ER 1 TAB PO Q4H PRN PAIN/TEMP/> 101 ( Reported) Acetaminophen (Acephen) 650 MG SUPP.RECT 1 SUPP [place] Q4H PRN PAIN/TEMP>101 ( Reported) Albuterol Sulfate 2.5 MG/3 ML (0.083 %) VIAL.NEB 1 Vial INH/BRIT Q6H PRN SOB ( Reported) Alprazolam (Xanax) 0.25 MG TABLET 1 TAB PO BID PRN anxiety Bisacodyl 10 MG SUPP.RECT 1 SUP RC DAILY PRN CONSTIPATION (Reported) Diltiazem HCl (Diltiazem 24HR ER) 180 MG CAP.ER.24H 1 CAP PO DAILY tachycardia (Reported) Enoxaparin Sodium (Lovenox) 100 MG/ML SYRINGE 100 MG SC Q12H BLOOD THINNER ( Reported) Ferrous Sulfate 325 MG (65 MG IRON) TABLET.DR 1 TAB PO DAILY anemia Folic Acid 1 MG TABLET 1 TAB PO DAILY SUPPLEMENT (Reported) Levetiracetam (Keppra) 1,000 MG TABLET 1 TAB PO Q12H seizure prophylaxis Loperamide HCl (Imodium A-D) 2 MG TABLET 1 TAB PO Q6H PRN LOOSE STOOL ( Reported) Magnesium Hydroxide (Milk Of Magnesia) 400 MG/5 ML ORAL.SUSP 30 ML PO DAILY PRN CONSTIPATION (Reported) Magnesium Oxide 400 MG TABLET 400 MG PO BID hypomagnesemia Metoprolol Tartrate (Lopressor) 50 MG TABLET 75 MG PO BID HTN/TACYHCARDIA ( Reported) Multivitamin (Daily Multiple Vitamin) 1 EACH TABLET 1 TAB PO DAILY SUPPLEMENT (Reported) Na Phos,M-B/Na Phos,Di-Ba (Fleet Enema) 19 GRAM-7 GRAM/118 ML ENEMA 1 E RC DAILY PRN CONSTIPATION (Reported) Omeprazole 40 MG CAPSULE.DR 1 CAP PO DAILY acidity Ondansetron HCl 4 MG TABLET 1 TAB PO Q6P PRN N/V (Reported) Oxybutynin Chloride 5 MG TABLET 1 TAB PO DAILY (Reported) Phenytoin Sodium Extended 100 MG CAPSULE 2 CAP PO BID SEIZURES (Reported) Polyethylene Glycol 3350 (Miralax) 17 GRAM POWD.PACK 1 PAC PO DAILY GI ( Reported) dissolve in water Sertraline HCl (Zoloft) 50 MG TABLET 1 TAB PO DAILY depression please increase to 100mg after 7 days (on 02/26/2017) [TPN] TPN (Reported) Trazodone HCl 50 MG TABLET 1 TAB PO QHS INSOMNIA (Reported) Triage Nurses Notes Reviewed? yes Onset: Gradual Duration: day(s): Timing: recent history Severity: moderate Activities at Onset: none Prior Episodes/Possible Cause: no prior episodes Modifying Factors: Improves With: rest. Associated Symptoms: melena HPI: 61 yo gentleman h/o encephalitis, from [facility], h/o PE on lovenox sc, presents with weakness, decreased energy and low bood pressure and melena. He states that he has had dark stool for several months. Past History Travel History Traveled to [place] past 21 day No Medical History Any Pertinent Medical History? 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 MOTHER, , Age 50-60; Cause: Cancer of unknown origin. BROTHER ([employer]). Relation not specified for: *No pertinent family history Hx Contributory? No Review of Systems Review of Systems Constitutional: Reports: no symptoms. EENTM: Reports: no symptoms. Respiratory: Reports: no symptoms. Cardiovascular: Reports: no symptoms. GI: Reports: no symptoms. Genitourinary: Reports: no symptoms. Musculoskeletal: Reports: no symptoms. Skin: Reports: no symptoms. Neurological/Psychological: Reports: no symptoms. Hematologic/Endocrine: Reports: no symptoms. Immunologic/Allergic: Reports: no symptoms. All Other Systems: Reviewed and Negative Physical Exam Physical Exam General Appearance: well developed/nourished, mild distress, moderate distress Head: atraumatic, normal appearance Eyes: Bilateral: normal appearance. Ears, Nose, Throat: normal pharynx, normal ENT inspection Neck: normal inspection, supple, full range of motion Respiratory: normal breath sounds, chest non-tender, no respiratory distress, quiet respiration, lungs clear Cardiovascular: regular rate/rhythm Gastrointestinal: normal bowel sounds, soft, non-tender, no organomegaly Extremities: normal inspection, normal capillary refill, normal range of motion, no edema Neurologic/Psych: no motor/sensory deficits, awake, alert, oriented x 3 Skin: pallor Core Measures ACS in differential dx? No Severe Sepsis Present: Yes BC x2: Yes Lactic Acid x2: Yes IV ABX Broad Spectrum: Yes NS/LR Started: Yes Septic Shock Present: Yes BC x2: Yes Lactic Acid: Yes IV ABX Broad Spectrum: Yes Focused Exam Completed: Yes NS/LR 30ml/kg w/in 3hrs: Yes IV Vasopressors started: Yes Progress Differential Diagnosis: asthma, bronchitis, CHF, COPD, gi bleed Plan of Care: Orders Procedure Date/time Status BLOOD PRODUCT PICKUP 03/11 0683 Active Patient Data 03/11 06 Active ARTERIAL BLOOD GAS (GEN) 03/11 0611 Active LACTIC ACID 03/11 0510 Complete LEUKOCYTE POOR (PACKED CELLS) 03/11 0342 Active TYPE & SCREEN (NOT X-MATCH) 03/11 0317 Active LACTIC ACID 03/11 0210 Complete CULTURE,URINE 03/10 2320 Active BLOOD CULTURE 03/10 2320 Active URINALYSIS 03/10 232 Complete EKG 03/10 2306 Active TROPONIN LEVEL 03/10 225 Complete D-DIMER 03/10 2258 Complete COMPREHENSIVE METABOLIC PANEL 03/10 2258 Complete CBC WITHOUT DIFFERENTIAL 03/10 2258 Complete Current Medications Sig/Ghulam Start time Last Medication Dose Stop Time Status Admin Pantoprazole Sodium 40 MG Q5H 03/11 0645 UNVr (Protonix) Sodium Chloride 100 ML (Normal Saline 0.9%) Dopamine HCl 400 MG ONCE ONE 03/11 0615 CAN Dextrose/Water 500 ML 03/11 0616 (D5W) Laboratory Tests 03/11/17 0541: Lactic Acid 1.0 03/11/17 0410: Urinalysis LIGHT H, Urine Color YEL, Urine Clarity CLDY H, Urine pH 6.0, Ur Specific Weed 1.020, Urine Protein 100 H, Urine Ketones NEG, Urine Nitrite NEG, Urine Bilirubin NEG, Urine Urobilinogen 2.0 H, Ur Leukocyte Esterase LARGE H, Ur Microscopic SEDIMENT EXAMINED, Urine RBC 10-15 H, Urine WBC > 75 H, Ur Epithelial Cells RARE, Urine Bacteria PACKD H, Urine Mucus FEW, Urine Hemoglobin LARGE H, Urine Glucose NEG 03/11/17 0407: Urine Color Cancelled, Urine Clarity Cancelled, Urine pH Cancelled, Ur Specific Weed Cancelled, Urine Protein Cancelled, Urine Ketones Cancelled, Urine Nitrite Cancelled, Urine Bilirubin Cancelled, Urine Urobilinogen Cancelled, Ur Leukocyte Esterase Cancelled, Ur Microscopic Cancelled, Urine Hemoglobin Cancelled, Urine Glucose Cancelled 03/11/17 0350: D-Dimer High Sensitivty 625 H 03/11/17 0257: Lactic Acid 1.9 03/11/17 0257: Anion Gap 9, Estimated GFR > 60, BUN/Creatinine Ratio 78.3 H, Glucose 75, Calcium 7.9 L, Total Bilirubin 0.4, AST 59, ALT 59, Alkaline Phosphatase 191 H , Troponin I 0.04, Total Protein 5.3 L, Albumin 1.9 L, Globulin 3.4, Albumin/ Globulin Ratio 0.6 L, CBC w Diff MAN DIFF ORDERED, RBC 2.43 L, MCV 89.4, MCH 27.6, RDW 18.5 H, MPV 9.1, Gran % 94.8 H, Lymphocytes % 3.6 L, Monocytes % 1.6 L, Eosinophils % 0, Basophils % 0 L, Absolute Granulocytes 20.5 H, Segmented Neutrophils 95 H, Band Neutrophils 3, Absolute Lymphocytes 0.8 L, Lymphocytes 1 L, Monocytes 1 L, Absolute Monocytes 0.3, Absolute Eosinophils 0 , Absolute Basophils 0, Platelet Estimate ADEQUATE, Polychromasia 1+, Hypochromic-Microcytic 1+, Poikilocytosis 1+, Ovalocytes 1+, Stomatocytes FEW, PUBS MCHC 30.9 L, Fld Total RBCs Counted 100 Microbiology 03/11 041 URINE ROUT: Urine Culture - RECD 03/11 025 BLOOD: Blood Culture - RECD 03/10 2320 BLOOD: Blood Culture - CAN Cancelled: Quantity not sufficient for both blood culture bottles. Diagnostic Imaging: Viewed by Me: Radiology Read. Discussed w/RAD: Radiology Read. CXR Impression: small to moderate pleural effusions... no change from prior. Initial ED EKG: sinus tach, nonspecific t wave abnormalities Comments: PATIENT: JUANY GONZALEZ PRESENT AGE: 61 PATIENT ACCOUNT NO: [id number] : 54 LOCATION: [facility] ORDERING PHYSICIAN: SREEDHAR ARTEAGA MD SERVICE DATE: 03/10/17 EXAM TYPE: RAD - XRY-PORTABLE CHEST XRAY EXAMINATION: XR PORTABLE CHEST CLINICAL INFORMATION: Dyspnea COMPARISON: 02/23/2017 TECHNIQUE: Portable frontal view of the chest was obtained. FINDINGS: Right internal jugular central venous catheter terminates near the cavoatrial junction. Existing right-sided PICC line terminates in a similar location. Cardiac leads overlie the chest. Low lung volumes. Small to moderate pleural effusions with associated hazy airspace opacity. No pneumothorax. The cardiomediastinal silhouette is unchanged. IMPRESSION: No significant change in small to moderate bilateral pleural effusions with associated airspace opacity. DICTATED BY: MALKA SOSA,JOANA DATE/TIME DICTATED:03/11/17619 STUDIO SET UP WORKER:KAILASH DATE/TIME TRANSCRIBED:03/11/17619 CONFIDENTIAL, DO NOT COPY WITHOUT APPROPRIATE AUTHORIZATION. <Electronically signed in Other Vendor System> SIGNED BY: MALKA SOSA,JOANA 03/11 Departure Departure Disposition: HOME OR SELF CARE Condition: Stable Clinical Impression Primary Impression: Shock Secondary Impressions: GI bleed, Sepsis, UTI (urinary tract infection) Referrals: GARRETT MACIAS MD (PCP/Family) Departure Forms: Customer Survey General Discharge Information Comments 03/11/17, 4:05am... discussed with dr. cruz... pronitix 80mg iv w/ drip. pt to be admitted to icu and will be evaluated in the AM. Will hold heparin sc. Admission Note Spoke With: REYES WHITESIDE MD Documentation of Exam: Documentation of any treatments & extenuating circumstances including Concerns Regarding Discharge (functional status, medication knowledge or non-compliance, living conditions, etc.) that warrant an admission rather than observation: pt with multisystem involvement including septic shock, likely due to uti, as well as gi bleed in the context of being on lovenox... pt is presently critically ill, starting levophed. Procedures Central Line Central Line Lumen: triple Central Line Procedure: Yes: bentadine prep?, sterile drapes applied, sterile dressing applied. Central Line Position: internal jugular (R) Anesthesia: lidocaine 1% CC's of Anesthesia: 4 Complications: none Central Line Post Position: sutured, good blood return, position confirmed w/ CXR Critical Care Note Critical Care Note Critical Care Time: 75-104 min
--- NOTE | 2017-03-10 23:07 | NUR ---
61 Y/O MALE BIBA FROM [facility] FOR SUDDENT ONSET OF WEAKNESS AND LETHARGY AND DIFFICULTY BREATHING AND HEMATURIA IN ACE. PT HAS HX OF AFIB AND RECENTLY IN DECEMBER HAD A PARTIAL SURGICAL REMOVAL OF A TUMOR TO HIS ABDOMEN AND PER STAFF AND PARAMED PATIENT HAS BEEN HAVING ISSUES. PT ARRIVES A/0 X3 AND STS HE HAS NOT BEEN FEELING WELL ALL DAY. PT IS FEBRILE AT 100.5. PT C/O 8/10 PAIN ACROSS HIS BELLY. PER PARAMED PT IS ALSO INCONTINENT OF STOOL WHICH IS UNUSUAL FOR HIM
--- NOTE | 2017-03-10 23:38 | NUR ---
PATIENT TAKEN TO CT BY STRETCHER, PATIENT BROUGHT IMMEDIATLEY BACK FROM CT D/T PATIENT REFUSING CAT SCAN, STATING "ABSOLUTELY NOT."
--- NOTE | 2017-03-10 23:57 | NUR ---
PER JONATHAN LOVE, PATIENT REFUSING ANY IV ESTABLISHMENT AND REFUSING ANY BLOODWORK AND BLOOD CULTURES. JONATHAN LOVE INFORMED MD ARTEAGA. PER JONATHAN LOVE, PATIENT NOTED OFF 3LNC, O2: 87% AFTER REPLACED ON 3LNC PER JONATHAN LOVE.
--- NOTE | 2017-03-11 00:25 | NUR ---
PATIENT NOW AGREEABLE TO VITAL SIGNS THOUGH CONTINUES TO REFUSE IV ACCESS/ BLOODWORK/ BLOOD CULTURES. PATIENT'S CURRENT BP 74/46. PATIENT REMAINS ALERT AND ORIENTED THOUGH DROWSY, SKIN PALE.
--- NOTE | 2017-03-11 00:51 | NUR ---
SPOKE W/ MD ARTEAGA REGARDING CONTINUED HYPOTENSION (CURRENT BP:76/51). PATIENT REMAINS ALERT AND ORIENTED X3 THOUGH DROWSY. PATIENT REMAINS PALE. PATIENT CONTINUES TO REFUSE ANY HOSPITAL IV ACCESS/ RADIOLOGY/ BLOODWORK/ BLOOD CULTURES, EDUCATED ON RISKS. PATIENT AGREEABLE TO USING PREHOSP PICC TO R UPPER EXT FOR FLUIDS AT THIS TIME, THOUGH REFUSING CONFIRMATION XRAY FOR PROPER PLACEMENT OF PICC LINE. MD ARTEAGA AWARE.
--- NOTE | 2017-03-11 00:55 | NUR ---
NS INITIATED PER EMAR/ DISCUSSION W/ MD ARTEAGA FOR HYPOTENSION. TOLERATING WELL.
--- NOTE | 2017-03-11 01:35 | NUR ---
CURRENT BP:78/50, PATIENT REMAINS ALERT THOUGH DROWSY, SKIN SLIGHTLY MOIST AND REMAINS PALE. NS CONTINUES TO INFUSE VIA PICC LINE, OKAY PER MD. PATIENT NOTED W/ ?STOOL INCONTINENCE, PATIENT REFUSING TO BE CHANGED AT THIS TIME, STATES "I DON'T WANT TO BE TOUCHED RIGHT NOW." PATIENT EDUCATED ON RISKS OF REMAINING ON SOILED LINENS, EDUCATED ON RISKS OF SKIN BREAKDOWN.
--- NOTE | 2017-03-11 01:48 | NUR ---
SPOKE W/ PATIENT JUANY' BROTHER BRIDGER W/ UPDATE ON POC, PATIENT GAVE VERBAL CONSENT TO RELASE "ANY INFORMATION HE WANTS." PATIENT'S BROTHER AWARE THAT PATIENT IS REFUSING ALL BLOODWORK/ HOSPITAL IV ACCESS AND ANY RADIOLOGY/CT SCANS. PER BROTHER "HE DOES THAT, HE CHANGES HIS MIND ALL THE TIME, HE GOES FROM REFUSING EVERYTHING TO AGREEING TO DO IT ALL. MAYBE SOME TIME WILL CHANGE HIS MIND."
--- NOTE | 2017-03-11 02:08 | NUR ---
MD ARTEAGA SPEAKING W/ PATIENT.
--- NOTE | 2017-03-11 03:01 | NUR ---
BLOODWORK OBTAINED AND SENT TO LAB (LAV, SST, BLUE, VELARDE, FIRST SET OF BLOOD CULTURES). IV EST #24 LEFT HAND. NS BOLUS (#2) INFUSING PER EMAR. TOLERATING WELL.
[2017-03-11 03:09] LABS: ABSOLUTE BASOPHIL COUNT 0 /CUMM (0.0-0.2); ABSOLUTE EOSINOPHIL COUNT 0 /CUMM (0.0-0.7); ABSOLUTE GRANULOCYTE CT 20.5 /CUMM (1.4-6.5); ABSOLUTE LYMPH COUNT 0.8 /CUMM (1.2-3.4); ABSOLUTE MONOCYTE COUNT 0.3 /CUMM (0.10-0.60); BASOPHIL % 0 % (0.0-2.0); EOSINOPHIL % 0 % (0-5); GRANULOCYTE % 94.8 % (42.2-75.2); HEMATOCRIT 21.7 % (42-52); MEAN CORPUSCULAR HGB 27.6 PG (27.0-31.0); MEAN CORPUSCULAR HGB CONC 30.9 G/DL (33.0-37.0); MEAN CORPUSCULAR VOLUME 89.4 FL (80.0-94.0); MEAN PLATELET VOLUME 9.1 FL (7.4-10.4); PLATELET COUNT 335 /CUMM (130-400); RBC DISTRIBUTION WIDTH 18.5 % (11.5-14.5); RED BLOOD CELL CT 2.43 /CUMM (4.70-6.10)
[2017-03-11 03:14] LABS: WHITE BLOOD CELL COUNT 21.6 /CUMM (4.8-10.8)
--- NOTE | 2017-03-11 03:16 | NUR ---
CRITICAL TEST RESULTS [id number] JUANY GONZALEZ 61 M TESTS AND RESULTS: HGB 6.7, HCT 21.7 Results received and read back by: DEYANIRA PEREA Results received date and time: 03/11/17 0316 The following provider was notified of the results, and read the results back: DR. ARTEAGA Notified date and time: 03/11/17 at 0316
--- NOTE | 2017-03-11 03:40 | NUR ---
SECOND IV EST #20 LEFT HAND BY JONATHAN LOVE. 3RD LITER NS INFUSING PER EMAR. TOLERATING WELL. PROTONIX INFUSING PER EMAR. TOLERATING WELL.
--- NOTE | 2017-03-11 04:10 | NUR ---
2ND SET BL CULT DRAWN AND SENT
--- NOTE | 2017-03-11 04:20 | NUR ---
RECD CALL FROM MS STRICKLAND FROM THE LAB. SHE STATES "SHE IS REJECTING 2ND BLOOD CULT AND IF 2ND SET IS NEEDED, THE MD MUST RE ORDER" DR ARTEAGA AWARE.
--- NOTE | 2017-03-11 04:43 | NUR ---
MD ARTEAGA TO BEDSIDE FOR CONSENT FOR CENTRAL LINE.
--- NOTE | 2017-03-11 05:26 | NUR ---
R NECK CENTRAL LINE EST BY MD ARTEAGA AT THIS TIME. GOOD BLOOD RETURN. AWAITING XRAY FOR CONFIRMATION OF PLACEMENT.
--- NOTE | 2017-03-11 06:16 | NUR ---
UPDATE PROVIDED TO PATIENT'S BROTHER TENA SPARKS PER PATIENT.
--- NOTE | 2017-03-11 06:29 | RADIOLOGY REPORT ---
EXAMINATION: XR PORTABLE CHEST CLINICAL INFORMATION: Dyspnea COMPARISON: 02/23/2017 TECHNIQUE: Portable frontal view of the chest was obtained. FINDINGS: Right internal jugular central venous catheter terminates near the cavoatrial junction. Existing right-sided PICC line terminates in a similar location. Cardiac leads overlie the chest. Low lung volumes. Small to moderate pleural effusions with associated hazy airspace opacity. No pneumothorax. The cardiomediastinal silhouette is unchanged. IMPRESSION: No significant change in small to moderate bilateral pleural effusions with associated airspace opacity.
--- NOTE | 2017-03-11 06:45 | NUR ---
PATIENT DENIES ANY PAIN AT THIS TIME. PHARMACY AWARE OF LEVO DRIP.
--- NOTE | 2017-03-11 06:59 | NUR ---
PHARMACY REQUESTING 10 MORE MINUTES TO PREPARE LEVOPHED DRIP. PER LAB, 2 UNITS BLOOD ORDERED AND READY TO BE PICKED UP. PICKUP ORDER PLACED Cielo CASTILLO RN FOR FIRST OF TWO TOTAL UNITS, JONATHAN AT LAB RECIEVING BLOOD.
--- NOTE | 2017-03-11 07:10 | NUR ---
BLOOD TRANSFUSION CONSENT PRESENT IN PATIENT'S CHART. BLOOD TRANSFUSION (PRBC FIRST UNIT) CONFIRMED W/ CHADWICK RN AND JONATHAN RN, INFUSING AT 150ML/HR PER ORDER. TOLERATING WELL. MD CHRISTINE FERREIRA AT BEDSIDE FOR EVAL. LEVOPHED DRIP INFUSING AT 0.5MCG/MIN PER EMAR, CONFIRMED W/ CHADWICK RN AND JONATHAN RN. TOLERATING WELL. CURRENT BP:81/50
--- NOTE | 2017-03-11 07:15 | NUR ---
RESP AWARE OF ABG.
--- NOTE | 2017-03-11 07:15 | NUR ---
CURRENT BP:86.51, LEVOPHED DRIP INCREASED FROM 0.5MCG/MIN TO 0.7MCG/MIN PER PROTOCOL. TOLERATING WELL.
--- NOTE | 2017-03-11 07:20 | NUR ---
CURRENT BP:94/55, NO CHANGE MADE TO LEVOPHED DRIP.
--- NOTE | 2017-03-11 07:34 | History & Physical ---
CHRISTINE FERREIRA 03/11/17 0732: General Information and HPI MD Statement: I have seen and personally examined JUANY GONZALEZ and documented this H&P. The patient is a 61 year old M who presented with a patient stated chief complaint of [dark stool]. Source of Information: patient, EMS Exam Limitations: clinical condition, physical impairment History of Present Illness: Mr. 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 He was brought in by ambulance to the emergency department after feeling fatigued and dyspneic and having a dark tarry stool. He states that he has never had any previous gastrointestinal bleeding. He is Lovenox for anticoagulation after a pulmonary embolism diagnosed in June 2014. Previous echocardiogram in November 2016 showed mild aortic sclerosis, mitral leaflet thickening and lipomatous hypertrophy of the intra-atrial septum. Normal ejection fraction estimated at 55-60%. He states he only had one dark bowel movement after he felt fatigue and shortness of breath at which time he called the nurse over and asked to be transported to the hospital. He denies any significant abdominal pain or nausea /vomiting, however he states that he would not like his abdomen examined as he is severely tender. During the time of interview he denied any more dyspnea. He denies any chest pain, palpitations, lightheadedness, dizziness, diplopia or tinnitus. He also denies any fevers, chills, diaphoresis. In the emergency department vitals on admission, temperature 100.5, heart rate 138, respiratory rate 20, blood pressure 97/60, saturating 98% on 3 L of oxygen via nasal cannula. Labs were significant for an elevated white count 21.6, with 3 bands and 95 seg, H&H 6.7/21.7, platelets 335. BUNs/creatinine 47/0.6. Alkaline phosphatase 191. Troponin 0.04. Urinalysis was remarkable for leukocyte esterase, 10-15 red blood cells and greater than 75 white cells with packed bacteria. ABG showed 7.52/34/98/27 on 3 L of oxygen via nasal cannula. EKG revealed sinus tachycardia rate 1 40 bpm, KY 116, QTC 385, normal axis, T- wave flattening in the limb leads and lateral precordial leads, unchanged from previous EKG. In the ED, he initially the patient refused any intervention including IV access and imaging. The patient's brother was informed and he said that the patient changes his mind on a regular basis. The patient eventually did agree to blood work, a right internal jugular central triple-lumen catheter, IV medications and was started on norepinephrine for pressor support. 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 MOTHER, , Age 50-60; Cause: Cancer of unknown origin. BROTHER ([employer]). Relation not specified for: *No pertinent family history Psychosocial History Services at Home: None Primary Language: Georgian ETOH Use: denies use Illicit Drug Use: denies illicit drug use Living Will? yes Power of Nuclear Security Officer/HCP? unknown Name of POA/HCP: brother Functional Ability ADLs Unknown: dressing, eating, toileting, bathing. Ambulation: independent IADLs Unknown: shopping, housework, finances, food prep, telephone, transportation, medication admin. Review of Systems Review of Systems Constitutional: Reports: see HPI. Exam & Diagnostic Data Last 24 Hrs of Vital Signs/I&O Vital Signs Date Time Temp Pulse Resp B/P B/P Pulse O2 O2 Flow FiO2 Mean Ox Delivery Rate 03/11 1122 116 18 106/68 98 Nasal 3.0L Cannula 07/13 1115 114 18 97/62 99 Nasal 3.0L Cannula 07/13 1106 97.9 99 18 100/60 99 Nasal 3.0L Cannula 07/13 1100 98.1 110 18 98/56 98 Nasal 3.0L Cannula 07/13 1030 112 18 96/58 97 Nasal 3.0L Cannula 07/13 1000 98.4 109 18 99/57 98 Nasal 3.0L Cannula 07/13 0952 111 18 93/56 98 Nasal 3.0L Cannula 07/13 0937 115 18 95/51 97 Nasal 3.0L Cannula 07/13 0922 117 18 103/57 98 Nasal 3.0L Cannula 07/13 0907 117 18 113/58 99 Nasal 3.0L Cannula 07/ 0842 98.9 118 18 94/59 97 Nasal 3.0L Cannula 07/ 0832 120 20 91/53 94 Nasal 3.0L Cannula 07/ 0822 120 20 93/55 100 Nasal 3.0L Cannula 07/ 0810 119 20 95/53 94 Nasal 3.0L Cannula 07/13 0810 123 20 125/66 93 Nasal 3.0L Cannula 07/13 0805 122 20 96/56 95 Nasal 3.0L Cannula 07/13 0757 122 20 99/54 99 Nasal 3.0L Cannula 07/ 0752 116 18 102/59 99 Nasal 3.0L Cannula 07/13 0748 116 20 98/59 100 Nasal 3.0L Cannula 07/13 0743 115 20 94/53 98 Nasal 3.0L Cannula 07/13 0732 116 18 97/55 97 Nasal 3.0L Cannula 07/13 0725 99.2 117 18 95/51 98 Nasal 3.0L Cannula 07/13 0720 117 18 94/55 98 Nasal 3.0L Cannula 07/13 0715 117 18 86/51 98 Nasal 3.0L Cannula 07/13 0710 97.5 115 18 81/50 07/13 0644 97.5 115 18 81/50 95 Nasal 3.0L Cannula 07/13 0524 122 18 78/54 98 Nasal 3.0L Cannula 07/13 0303 97.5 123 18 77/52 98 Nasal 3.0L Cannula 07/13 0135 128 20 78/50 98 Nasal 3.0L Cannula 07/13 0110 130 12 84/48 98 Nasal 3.0L Cannula 03/11 0051 136 12 76/51 99 Nasal 3.0L Cannula 03/11 0025 99.0 136 12 74/46 96 Room Air 03/10 2330 Nasal 3.5L Cannula 03/10 2300 100.5 138 20 97/60 98 Nasal 3.0L Cannula Intake & Output 03/11 1600 03/11 0800 03/11 0000 Intake Total 350 Output Total Balance 350 Intake, Blood 350 Product Patient 91.172 kg Weight Weight Reported by Patient Measurement Method Physical Exam General Appearance Alert, Oriented X3, Mild Distress Skin No Significant Lesion Skin Temp/Moisture Exam: Warm/Dry Sepsis Skin Exam (color): Normal for Ethnicity HEENT pale mucous membranes Neck R TLC in IJ, re-sutured in place. Cardiovascular Normal S1, Normal S2, tachycardic Lungs difficult to assess given his tachypnea, but some basilar rhonchi noted Abdomen Severe abdominal tenderness diffusely. Pitting edema to the flanks/ pelvis bilaterally. Extremities severe +3 pitting edema in the RLE. +2 in the LLE., edema goes up to his pelvis Sepsis Peripheral Pulse Location: Radial Sepsis Peripheral Pulse Exam: Normal Sepsis Cap Refill Exam: <2 Sec Rectal heme positive maroon stool tested after BM Last 24 Hrs of Labs/Yuri: Laboratory Tests 03/11/17 0735: pH 7.52 H, pCO2 34 L, pO2 98, HCO3 27, ABG O2 Sat (Measured) 98.0, P-50 (Temp Corrected) N, Carboxyhemoglobin 1.6, O2 Concentration % 3LPM, O2 Delivery Method NC, Phlebotomy Draw Site LEFT BRACHIAL 03/11/17 0541: Lactic Acid 1.0 03/11/17 0410: Urinalysis LIGHT H, Urine Color YEL, Urine Clarity CLDY H, Urine pH 6.0, Ur Specific [place] 1.020, Urine Protein 100 H, Urine Ketones NEG, Urine Nitrite NEG, Urine Bilirubin NEG, Urine Urobilinogen 2.0 H, Ur Leukocyte Esterase LARGE H, Ur Microscopic SEDIMENT EXAMINED, Urine RBC 10-15 H, Urine WBC > 75 H, Ur Epithelial Cells RARE, Urine Bacteria PACKD H, Urine Mucus FEW, Urine Hemoglobin LARGE H, Urine Glucose NEG 03/11/17 0407: Urine Color Cancelled, Urine Clarity Cancelled, Urine pH Cancelled, Ur Specific [place] Cancelled, Urine Protein Cancelled, Urine Ketones Cancelled, Urine Nitrite Cancelled, Urine Bilirubin Cancelled, Urine Urobilinogen Cancelled, Ur Leukocyte Esterase Cancelled, Ur Microscopic Cancelled, Urine Hemoglobin Cancelled, Urine Glucose Cancelled 03/11/17 0350: D-Dimer High Sensitivty 625 H 03/11/17256: Lactic Acid 1.9 03/11/17256: Anion Gap 9, Estimated GFR > 60, BUN/Creatinine Ratio 78.3 H, Glucose 75, Calcium 7.9 L, Total Bilirubin 0.4, AST 59, ALT 59, Alkaline Phosphatase 191 H , Troponin I 0.04, Total Protein 5.3 L, Albumin 1.9 L, Globulin 3.4, Albumin/ Globulin Ratio 0.6 L, Amylase 66, Lipase 73, CBC w Diff MAN DIFF ORDERED, RBC 2.43 L, MCV 89.4, MCH 27.6, RDW 18.5 H, MPV 9.1, Gran % 94.8 H, Lymphocytes % 3.6 L, Monocytes % 1.6 L, Eosinophils % 0, Basophils % 0 L, Absolute Granulocytes 20.5 H, Segmented Neutrophils 95 H, Band Neutrophils 3, Absolute Lymphocytes 0.8 L, Lymphocytes 1 L, Monocytes 1 L, Absolute Monocytes 0.3, Absolute Eosinophils 0, Absolute Basophils 0, Platelet Estimate ADEQUATE, Polychromasia 1+, Hypochromic-Microcytic 1+, Poikilocytosis 1+, Ovalocytes 1+, Stomatocytes FEW, PUBS MCHC 30.9 L, Fld Total RBCs Counted 100 Microbiology 03/11 410 URINE ROUT: Urine Culture - RECD 03/11 257 BLOOD: Blood Culture - RECD 03/10 2320 BLOOD: Blood Culture - CAN Cancelled: Quantity not sufficient for both blood culture bottles. Diagnostic Data CXR Results SERVICE DATE: 03/10/17 EXAM TYPE: RAD - XRY-PORTABLE CHEST XRAY EXAMINATION: XR PORTABLE CHEST CLINICAL INFORMATION: Dyspnea COMPARISON: 02/23/2017 TECHNIQUE: Portable frontal view of the chest was obtained. FINDINGS: Right internal jugular central venous catheter terminates near the cavoatrial junction. Existing right-sided PICC line terminates in a similar location. Cardiac leads overlie the chest. Low lung volumes. Small to moderate pleural effusions with associated hazy airspace opacity. No pneumothorax. The cardiomediastinal silhouette is unchanged. IMPRESSION: No significant change in small to moderate bilateral pleural effusions with associated airspace opacity. Assessment/Plan Assessment: Mr. 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 Labs were significant for an elevated white count 21.6, with 3 bands and 95 seg, H&H 6.7/21.7, platelets 335. BUNs/creatinine 47/0.6. Alkaline phosphatase 191. Troponin 0.04. Urinalysis was remarkable for leukocyte esterase, 10-15 red blood cells and greater than 75 white cells with packed bacteria. ABG showed 7.52/34/98/27 on 3 L of oxygen via nasal cannula. Problem List Shock w Leukocytosis * We will admit the patient to the intensive care unit for pressor support. * Continue with Levophed and titrate to mean arterial pressure of approximately 65 * His shock is most likely most likely septic in etiology, given his indwelling Price catheter and PICC line. Previous urine cultures have grown Providencia, VRE, Escherichia coli. He has also had candidemia in the past [Karen glabrata , treated withcandulafungin for 2 weeks], and VRE in a rectal surveillance culture. * Other sources in addition to urine vs PICC, could be pulmonary given his XRY and O2 requirement, as well as abdominal. His abdomen was severely tender to palpation. ?recent abdominal tumor partial resection at [facility] (records requested already). If he did have recent instumentation, ?intraabdominal source. Lactic acid was WNL. Alk phos slightly up ?GB in origin. * We will investigate with CT of the abd/pelvis, which will also further assess his pelvic mass and ?IVC compression given his severe anasarca. We will also add CT lung to assess his airspace opacity since he's getting abd/pel anyways. * Although less likely, his shock could be also secondary to hypovolemia given his acute blood loss. He has not responded to 4L of NS and is receiving blood at the moment. Anemia, secondary to acute blood loss. * 2/2 upper GI bleed most likely 2/2 or worsened by lovenox * The patient was evaluated by Dr. Patel, and there was a tentative plan to undergo endoscopy in the afternoon. See note below. * Patient was given Protonix 80 mg, we will start a Protonix drip, and transfuse 2 units of packed red cells. * We'll keep the patient nothing by mouth. * Avoid NSAIDs or antiplatelet/anticoagulants Respiratory alkalosis * 2/2 tachypnea due to shock * Pt on nasal canula * titrate O2 to goal sat >88% Pelvic Mass * [facility] contacted for records regarding his recent transfer and abdominal surgery At the time of interview, Dr. Patel was at the bedside and the patient was fully agreeable for a workup for his GI bleed including upper endoscopy. Upon reassessment, the patient refuses all intervention including imaging, and GI intervention including endoscopy. He states that he is okay with pressors for now as the central line is artery surgery, however states he does not want to escalate care. He refuses subspecialty consultation as well as the moment. This was confirmed by Dr. Whiteside and 2 witnesses. He is okay with receiving pressors for now given that the central line is artery and however would not like any other lines inserted if his PICC is pulled. He would also like his CODE STATUS changed to DNR/DNI. DNR/DNI ALPS NPO As Ranked By This Provider Problem List: 1. GI bleed 2. Shock 3. Sepsis 4. Dyspnea Core Measures/Miscellaneous Acute Coronary Syndrome ACS Diagnosis: No Cerebrovascular Accident CVA/TIA Diagnosis: No Congestive Heart Failure CHF Diagnosis: No VTE (View Protocol) VTE Risk Factors: Acute medical illness, Age > 40 No [facility] VTE prophylaxis d/t: No contraindications No VTE Pharm Prophylaxis d/t: Active bleeding VTE Diagnosis: No VTE Type: NONE VTE Confirmed by (Test): NONE Comment: patient refused Sepsis (View Protocol) Severe Sepsis Present: Yes BC x2: Yes Lactic Acid x2: Yes IV ABX Broad Spectrum: Yes NS/LR Started: Yes Septic Shock Septic Shock Present: Yes BC x2: Yes Lactic Acid: Yes IV ABX Broad Spectrum: Yes Focused Exam Completed: Yes NS/LR 30ml/kg w/in 3hrs: Yes IV Vasopressors started: Yes Miscellaneous Documentation Attending Case Discussed With: ALPHONSO WHITESIDE MD Primary Care Physician: GARRETT MACIAS MD Patient sees these Specialists Dr. Aragon Level of Patient Care: Critical Care (CRI) ALPHONSO WHITESIDE MD 03/11/17 0905: General Information and HPI Allergies/Medications Home Med list Acetaminophen (8 Hour) 650 MG TABLET.ER 1 TAB PO Q4H PRN PAIN/TEMP/> 101 ( Reported) Acetaminophen (Acephen) 650 MG SUPP.RECT 1 SUPP [place] Q4H PRN PAIN/TEMP>101 ( Reported) Albuterol Sulfate 2.5 MG/3 ML (0.083 %) VIAL.NEB 1 Vial INH/BRIT Q6H PRN SOB ( Reported) Alprazolam (Xanax) 0.25 MG TABLET 1 TAB PO BID PRN anxiety Bisacodyl 10 MG SUPP.RECT 1 SUP RC DAILY PRN CONSTIPATION (Reported) Diltiazem HCl (Diltiazem 24HR ER) 180 MG CAP.ER.24H 1 CAP PO DAILY tachycardia (Reported) Enoxaparin Sodium (Lovenox) 100 MG/ML SYRINGE 100 MG SC Q12H BLOOD THINNER ( Reported) Ferrous Sulfate 325 MG (65 MG IRON) TABLET 1 TAB PO BID ANEMIA (Reported) Folic Acid 1 MG TABLET 1 TAB PO DAILY SUPPLEMENT (Reported) Levetiracetam (Keppra) 1,000 MG TABLET 1 TAB PO Q12H seizure prophylaxis Loperamide HCl (Imodium A-D) 2 MG TABLET 1 TAB PO Q6H PRN LOOSE STOOL ( Reported) Magnesium Hydroxide (Milk Of Magnesia) 400 MG/5 ML ORAL.SUSP 30 ML PO DAILY PRN CONSTIPATION (Reported) Magnesium Oxide 400 MG TABLET 400 MG PO BID hypomagnesemia Metoprolol Tartrate (Lopressor) 50 MG TABLET 75 MG PO BID HTN/TACYHCARDIA ( Reported) Multivitamin (Daily Multiple Vitamin) 1 EACH TABLET 1 TAB PO DAILY SUPPLEMENT (Reported) Na Phos,M-B/Na Phos,Di-Ba (Fleet Enema) 19 GRAM-7 GRAM/118 ML ENEMA 1 E RC DAILY PRN CONSTIPATION (Reported) Omeprazole 40 MG CAPSULE.DR 1 CAP PO DAILY acidity Ondansetron HCl 4 MG TABLET 1 TAB PO Q6P PRN N/V (Reported) Oxybutynin Chloride 5 MG TABLET 1 TAB PO DAILY (Reported) Phenytoin Sodium Extended 100 MG CAPSULE 2 CAP PO BID SEIZURES (Reported) Sertraline HCl (Zoloft) 100 MG TABLET 1 TAB PO QPM DEPRESSION (Reported) [TPN] TPN (Reported) Trazodone HCl 50 MG TABLET 1 TAB PO QHS INSOMNIA (Reported) Attending MD Review Statement Attending Statement Attending MD Statement: examined this patient, discuss w/resident/PA/JOINT CREASER, agreed w/resident/PA/JOINT CREASER, discussed with family, reviewed EMR data (avail), discussed with nursing, discussed with case mgmt, reviewed images, amended to note Attending Assessment/Plan: Alphonso Spring M.D. have examined this patient, reviewed available EMR data, personally reviewed images, discussed with resident/PA/JOINT CREASER, discussed management plan with housestaff and nursing staff, discussed managment plan all of healthcare providers, discussed management plan with patient and/or family, agreed with resident/PA/JOINT CREASER. The past history and parts of the chart have been autopopulated. Impression 61 year old man * acute blood loss anemia, likely upper gi bleed * hypotension, likely hypovolemia vs septic shock, source can be line sepsis vs chronic price Plan The patient was seen and examined. He is fully alert and oriented. He declines any imaging testing, any consultants to be involved for any procedures. He is accepting vasopressors and blood products. If he was to deteriorate he would wish for a conservative and comfort approach. He clearly states that he wishes to be DNR/DNI. It is noted that he has changed his mind previously and he says that he is tired of the back and forth wants to pursue the above wishes. Cont abx, blood transfusion, will remove picc line if non functional. Taper levophed. Declines any further imaging as well. DVT prophylaxis with ALPS TTS 50 min Metabolic -ins/outs, electrolyte monitoring Alimentary -NPO -GI evaluation Neuro -no active issues TTS 50 min
--- NOTE | 2017-03-11 07:44 | NUR ---
RESP THERAPIST AT BEDSIDE FOR ABG'S AT THIS TIME, PT REMAINS SLEEPY, BUT EASILY AROUSABLE. BP 94/53, HR 115.
--- NOTE | 2017-03-11 08:07 | NUR ---
PT NOTED WITH SMALL AMOUNT BLACK?PINK TINGED STOOL + GUIAC, DR CHRISTINE FERREIRA AND DR CHE AWARE. GI DOCTOR YANE IN TO EVAL AT THIS TIME, DR FERREIRA ALSO AT BEDSIDE, BP 126/77 AT THIS TIME.
--- NOTE | 2017-03-11 08:35 | NUR ---
PT RESTING MORE COMFORTABLY, PT STATING "I FEEL A LITTLE BETTER NOW".
[2017-03-11] MEDS ORDERED: ZOLOFT100 M1 PO (08:49)
[2017-03-11] MEDS ORDERED: FERROUS SULFAT325 M3 PO (08:54)
--- NOTE | 2017-03-11 09:05 | NUR ---
PT NAPPING AT THIS TIME, EASILY VERBALLY AROUSABLE. PT UPATED WITH POC, AWAITING ICU BED AVAILALBILITY.
--- NOTE | 2017-03-11 09:05 | Admission Certification ---
Admission Certification Certification Statement - As attending physician, I certify that at the time of - admission, based on clinical presentation, severity of - symptoms, need for further diagnostic testing and - therapeutic interventions, and risk of adverse outcomes - without in-hospital treatment, in my clinical assessment, - this patient requires an acute hospital stay for a minimum - of two nights or longer. I have also considered psychsocial - factors such as support system, advanced age, financial - issues, cognitive issues, and failed out-patient treatments, - past re-admission history, safety of patient, and lack of - compliance as applicable. Specific rationale supporting this admission is: icu admission shock - hypovolemic vs septic acute blood loss anemia, gi bleed
--- NOTE | 2017-03-11 09:35 | NUR ---
PROTONIX 40MG AT 20ML/8MG/HR INFUSING WITHOUT DIFFICULTY AT THIS TIME. AWAITING LAB FOR 2ND UNIT LPBRC'S. PT UPDATED WITH POC.
--- NOTE | 2017-03-11 09:51 | NUR ---
1 UNIT LPRBC'S COMPLETED, TOLERATED VERY WELL "FEEL BETTER NOW". SPOKE WITH BROTHER ON PHONE, WILL CALL BACK AROUND 12PM.
--- NOTE | 2017-03-11 10:15 | NUR ---
2ND UNIT PRBC'S INFUSING WITHOUT DIFFICULTY AT THIS TIME, MIESHA IN TO EVAL AND DISCUSS POC WITH PT. PT RESTING MORE COMFORTABLY IN LONG NAPS, EASILY AROUSABLE TO VERBAL STIMULI. BP REMAINS 90'S/50'S, CURRENTLY 99/57, HEART RATE 109, TEMP 98.4. NO COMPLAINTS AT THIS TIME.
--- NOTE | 2017-03-11 11:06 | NUR ---
PT TOLERATING 2ND UNIT LPRBC'S WELL, VITALS STABLE, AFEBRILE. NAPPING AT THIS TIME.
--- NOTE | 2017-03-11 11:30 | NUR ---
AM MEDS GIVEN ORDERED, TOLERATED WELL, NO N/V/D NOTED AT THIS TIME.
--- NOTE | 2017-03-11 11:39 | NUR ---
BEDSIDE ECHO IN PROGRESS AT THIS TIME.
--- NOTE | 2017-03-11 11:59 | NUR ---
SPOKE WITH GI NURSE, PT CURRENTLY REFUSING "ANY INVASIVE TESTING OR GI TESTING".
--- NOTE | 2017-03-11 12:00 | NUR ---
ECHO COMPLETED, TOLERATED WELL. PT NAPPING AT THIS TIME.
--- NOTE | 2017-03-11 12:38 | NUR ---
PT SLEEPING AT THIS TIME. RR EVEN AND UNLABORED. PRBC INFUSING WITHOUT DIFFICULTY. PT WAITING FOR INPATIENT BED
--- NOTE | 2017-03-11 14:07 | NUR ---
PT NAPPING COMFORTABLY, TOLERATED 2ND BLOOD TRANSFUSION WELL, VITALS STABLE, AFEBRILE.
--- NOTE | 2017-03-11 14:26 | NUR ---
REPEAT CBC DRAWN/SENT TO LAB. PT EASILY AROUSABLE, NAPPING AT THIS TIME.
--- NOTE | 2017-03-11 14:29 | ULTRASOUND REPORT ---
EXAMINATION: US TRIPLEX OF LOWER EXTREMITIES, BILATERAL CLINICAL INFORMATION: Bilateral lower extremity swelling. Elevated d-dimer. COMPARISON: No relevant prior imaging available. TECHNIQUE: Color-flow triplex imaging with spectral analysis and compression Doppler were performed on the lower extremities. FINDINGS: Respiratory variation, normal compression and augmented flow are noted throughout the lower extremities. The visualized common femoral vein, superficial femoral vein, profunda femoral vein, popliteal vein and midcalf peroneal and posterior tibial venous segments show no evidence of deep venous thrombosis. There is a Pulido cyst within the popliteal fossa of the right lower extremity that measures 3.0 x 0.5 x 1.4 cm. There is mild nonspecific subcutaneous swelling within both lower extremities. IMPRESSION: No evidence of deep venous thrombosis within either of the lower extremities.
--- NOTE | 2017-03-11 14:33 | Cons- Cardiology ---
General Information and HPI Consulting Request Date of Consult: 03/11/17 Requested By: REYES WHITESIDE MD History of Present Illness: Mr. Carrion is a 61 year old male with history of cancer and pulmonary embolism. He also carries a history of seizures and has a malignant abdominal mass status post right hemicolectomy. There is a residual pelvic tumor. This patient has been evaluated multiple times for tachycardia and has been only partially cooperative with workup. The patient presents to the ER with reported weakness, lethargy and difficulty breathing. He is febrile with a low blood pressure. His WBC count is elevated and he is severely anemic. He also appears to be more fluid overloaded than he previously was with edema in his legs and arms bilaterally. Although his blood pressure is borderline low he denies and lightheadedness and is also free of chest discomfort. He does have some shortness of breath with exertion. The patient wants palliative care and is refusing examination. He also has turned down the repeat surgery that was planned on his pelvic mass. There is documented compression of the IVC that is likely leading to his leg edema. Previously, when tachycardic he also experienced some chest discomfort. The patient was noted to be mildly tachycardic with moderate anemia. The patient has chronic leg edema and complains of pain with palpation. It may be recalled that this patient previously reported episodes of lightheadedness with loss of consciousness but these episodes appear to have been related to seizures. The patient has been VRE positive. Hematochezia was also reported on a recent hospital admission. Allergies/Medications Allergies: Coded Allergies: NO KNOWN ALLERGIES (01/11/14) Home Med List: Acetaminophen (8 Hour) 650 MG TABLET.ER 1 TAB PO Q4H PRN PAIN/TEMP/> 101 ( Reported) Acetaminophen (Acephen) 650 MG SUPP.RECT 1 SUPP WV Q4H PRN PAIN/TEMP>101 ( Reported) Albuterol Sulfate 2.5 MG/3 ML (0.083 %) VIAL.NEB 1 Vial INH/BRIT Q6H PRN SOB ( Reported) Alprazolam (Xanax) 0.25 MG TABLET 1 TAB PO BID PRN anxiety Bisacodyl 10 MG SUPP.RECT 1 SUP RC DAILY PRN CONSTIPATION (Reported) Diltiazem HCl (Diltiazem 24HR ER) 180 MG CAP.ER.24H 1 CAP PO DAILY tachycardia (Reported) Enoxaparin Sodium (Lovenox) 100 MG/ML SYRINGE 100 MG SC Q12H BLOOD THINNER ( Reported) Ferrous Sulfate 325 MG (65 MG IRON) TABLET 1 TAB PO BID ANEMIA (Reported) Folic Acid 1 MG TABLET 1 TAB PO DAILY SUPPLEMENT (Reported) Levetiracetam (Keppra) 1,000 MG TABLET 1 TAB PO Q12H seizure prophylaxis Loperamide HCl (Imodium A-D) 2 MG TABLET 1 TAB PO Q6H PRN LOOSE STOOL ( Reported) Magnesium Hydroxide (Milk Of Magnesia) 400 MG/5 ML ORAL.SUSP 30 ML PO DAILY PRN CONSTIPATION (Reported) Magnesium Oxide 400 MG TABLET 400 MG PO BID hypomagnesemia Metoprolol Tartrate (Lopressor) 50 MG TABLET 75 MG PO BID HTN/TACYHCARDIA ( Reported) Multivitamin (Daily Multiple Vitamin) 1 EACH TABLET 1 TAB PO DAILY SUPPLEMENT (Reported) Na Phos,M-B/Na Phos,Di-Ba (Fleet Enema) 19 GRAM-7 GRAM/118 ML ENEMA 1 E RC DAILY PRN CONSTIPATION (Reported) Omeprazole 40 MG CAPSULE.DR 1 CAP PO DAILY acidity Ondansetron HCl 4 MG TABLET 1 TAB PO Q6P PRN N/V (Reported) Oxybutynin Chloride 5 MG TABLET 1 TAB PO DAILY (Reported) Phenytoin Sodium Extended 100 MG CAPSULE 2 CAP PO BID SEIZURES (Reported) Sertraline HCl (Zoloft) 100 MG TABLET 1 TAB PO QPM DEPRESSION (Reported) [TPN] TPN (Reported) Trazodone HCl 50 MG TABLET 1 TAB PO QHS INSOMNIA (Reported) Past History Travel History Traveled to [place] past 21 day No Medical History Neurological: seizure, childhood encephalitis EENT: NONE Cardiovascular: syncope (possible unwitnessed) Respiratory: pulmonary embolism (06/2014) Gastrointestinal: GERD (mild), hiatal hernia, large pelvic mass Hepatic: NONE Renal: benign prost hyperplasia Musculoskeletal: osteopenia; TL compression fractures Psychiatric: NONE Endocrine: osteopenia Blood Disorders: anemia, PE (06/2014) Cancer(s): NONE 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 MOTHER, , Age 50-60; Cause: Cancer of unknown origin. BROTHER ([employer]). Relation not specified for: *No pertinent family history Psychosocial History Services at Home: None Primary Language: Hungarian ETOH Use: denies use Illicit Drug Use: denies illicit drug use Living Will? yes Power of Streets And Buildings Decorator/HCP? unknown Name of POA/HCP: brother Functional Ability ADLs Unknown: dressing, eating, toileting, bathing. Ambulation: independent IADLs Unknown: shopping, housework, finances, food prep, telephone, transportation, medication admin. Exam & Diagnostic Data Vital Signs and I&O Vital Signs Date Time Temp Pulse Resp B/P B/P Pulse O2 O2 Flow FiO2 Mean Ox Delivery Rate 03/11 1523 104 18 97/53 99 Nasal 3.0L Cannula 03/11 1452 97.8 110 18 91/56 98 Nasal 3.0L Cannula 03/11 1437 98.0 103 18 97/62 99 Nasal 3.0L Cannula 03/11 1410 108 18 95/65 99 Nasal 3.0L Cannula 03/11 1406 98.1 107 18 98/66 99 Nasal 3.0L Cannula 03/11 1352 106 18 95/65 99 Nasal 3.0L Cannula 03/11 1337 106 18 92/64 99 Nasal 3.0L Cannula 03/11 1322 106 18 99/63 99 Nasal 3.0L Cannula 03/11 1309 97.8 110 20 98/63 03/11 1307 107 18 98/59 98 Nasal 3.0L Cannula 03/11 1258 111 18 98/63 99 Nasal 3.0L Cannula 03/11 1252 109 18 97/63 99 Nasal 3.0L Cannula 03/11 1241 97.8 110 20 98/63 97 03/11 1207 109 18 102/71 98 Nasal 3.0L Cannula 03/11 1152 107 18 102/70 98 Nasal 3.0L Cannula 03/11 1137 107 18 99/63 99 Nasal 3.0L Cannula 03/11 1122 116 18 106/68 98 Nasal 3.0L Cannula 03/11 1115 114 18 97/62 99 Nasal 3.0L Cannula 03/11 1106 97.9 99 18 100/60 99 Nasal 3.0L Cannula 03/11 1100 98.1 110 18 98/56 98 Nasal 3.0L Cannula 07/13 1030 112 18 96/58 97 Nasal 3.0L Cannula 07/13 1000 98.4 109 18 99/57 98 Nasal 3.0L Cannula 07/13 0952 111 18 93/56 98 Nasal 3.0L Cannula 07/13 0937 115 18 95/51 97 Nasal 3.0L Cannula 07/13 0922 117 18 103/57 98 Nasal 3.0L Cannula 07/13 0907 117 18 113/58 99 Nasal 3.0L Cannula 07/ 0842 98.9 118 18 94/59 97 Nasal 3.0L Cannula 07/13 0832 120 20 91/53 94 Nasal 3.0L Cannula 07/13 0822 120 20 93/55 100 Nasal 3.0L Cannula 07/13 0810 119 20 95/53 94 Nasal 3.0L Cannula 07/13 0810 123 20 125/66 93 Nasal 3.0L Cannula 07/13 0805 122 20 96/56 95 Nasal 3.0L Cannula 07/13 0757 122 20 99/54 99 Nasal 3.0L Cannula 07/ 0752 116 18 102/59 99 Nasal 3.0L Cannula 07/13 0748 116 20 98/59 100 Nasal 3.0L Cannula 07/ 0743 115 20 94/53 98 Nasal 3.0L Cannula 07/13 0732 116 18 97/55 97 Nasal 3.0L Cannula 07/ 0725 99.2 117 18 95/51 98 Nasal 3.0L Cannula 07/13 0720 117 18 94/55 98 Nasal 3.0L Cannula 07/13 0715 117 18 86/51 98 Nasal 3.0L Cannula 07/13 0710 97.5 115 18 81/50 07/13 0644 97.5 115 18 81/50 95 Nasal 3.0L Cannula 07/13 0524 122 18 78/54 98 Nasal 3.0L Cannula 07/13 0303 97.5 123 18 77/52 98 Nasal 3.0L Cannula 07/13 0135 128 20 78/50 98 Nasal 3.0L Cannula 07/13 0110 130 12 84/48 98 Nasal 3.0L Cannula 07/13 0051 136 12 76/51 99 Nasal 3.0L Cannula 07/ 0025 99.0 136 12 74/46 96 Room Air 03/10 2330 Nasal 3.5L Cannula 03/10 2300 100.5 138 20 97/60 98 Nasal 3.0L Cannula Intake & Output 03/11 1600 03/11 0800 03/11 0000 03/10 1600 03/10 0800 03/10 0000 Intake Total 350 Output Total Balance 350 Intake, Blood 350 Product Patient 201 lb Weight Weight Reported by Patient Measurement Method Physical Exam: General: WD/ overweight male in NAD; alert and oriented x 3 HEENT: NC/AT, PERRL, EOMI Neck: +ve JVD Heart: mildly tachycardic with regular rhythm Lungs: decreased breath sounds at the bases bilaterally Extremities: 3+ bilateral leg edema and 2+ edema of the left upper extremity Assessment/Plan Assessment/Plan * This patient has a low BP at his baseline along with tachycardia. 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 His recent blood loss is also contributing to hypotension. As such, it is possible that this patient does not have septic shock. He is doing better following his blood transfusion. It appears that he is not willing to have an endoscopy and truthfully has been refusing most care; especially physical examination. This patient need to maintain adequate filling pressures and will not tolerate overdiuresis very well. Although, I do think he is fluid overloaded I do not think we can begin diuresis until his blood pressure stabilizes. Hold his calcium gladys and Metoprolol for now. Check TFT' s. Continue antibiotic therapy for now. Obtain an echocardiogram. Consult Acknowledgment - Thank you for your consult request.
[2017-03-11 14:34] LABS: ABSOLUTE BASOPHIL COUNT 0 /CUMM (0.0-0.2); ABSOLUTE EOSINOPHIL COUNT 0 /CUMM (0.0-0.7); ABSOLUTE MONOCYTE COUNT 0.6 /CUMM (0.10-0.60)
[2017-03-11 14:38] LABS: ABSOLUTE GRANULOCYTE CT 9.1 /CUMM (1.4-6.5); BASOPHIL % 0.2 % (0.0-2.0); EOSINOPHIL % 0.2 % (0-5); HEMATOCRIT 23.5 % (42-52); MEAN CORPUSCULAR HGB 28.1 PG (27.0-31.0); MEAN CORPUSCULAR HGB CONC 32.2 G/DL (33.0-37.0); MEAN CORPUSCULAR VOLUME 87.3 FL (80.0-94.0); MEAN PLATELET VOLUME 8.5 FL (7.4-10.4); PLATELET COUNT 296 /CUMM (130-400); RBC DISTRIBUTION WIDTH 17.8 % (11.5-14.5)
[2017-03-11 14:39] LABS: WHITE BLOOD CELL COUNT 10.8 /CUMM (4.8-10.8)
[2017-03-11 14:48] LABS: GRANULOCYTE % 84.3 % (42.2-75.2)
--- NOTE | 2017-03-11 14:55 | Cons- Gastroenterology ---
General Information and HPI Consulting Request Date of Consult: 03/11/17 Requested By: REYES WHITESIDE MD Reason for Consult: Melena, anemia. Source of Information: patient, old records Exam Limitations: no limitations History of Present Illness: Mr. 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 The patient complains of vague epigastric discomfort, but he denies any burning pain or dysphagia. He has not had any hematemesis. He notes that his stool has been dark and loose for the past 6 months. He denies any BRBPR. In the ED he was hypotensive, and tachycrdic for which he ultimately agreed to have IV access obtained after which he was started on IVF, IV pressors for BP support, and IV protonix. He has also been kept NPO in anticipation for an EGD which he is currently adamantly refusing. Allergies/Medications Allergies: Coded Allergies: NO KNOWN ALLERGIES (01/11/14) Home Med List: Acetaminophen (8 Hour) 650 MG TABLET.ER 1 TAB PO Q4H PRN PAIN/TEMP/> 101 ( Reported) Acetaminophen (Acephen) 650 MG SUPP.RECT 1 SUPP [place] Q4H PRN PAIN/TEMP>101 ( Reported) Albuterol Sulfate 2.5 MG/3 ML (0.083 %) VIAL.NEB 1 Vial INH/BRIT Q6H PRN SOB ( Reported) Alprazolam (Xanax) 0.25 MG TABLET 1 TAB PO BID PRN anxiety Bisacodyl 10 MG SUPP.RECT 1 SUP RC DAILY PRN CONSTIPATION (Reported) Diltiazem HCl (Diltiazem 24HR ER) 180 MG CAP.ER.24H 1 CAP PO DAILY tachycardia (Reported) Enoxaparin Sodium (Lovenox) 100 MG/ML SYRINGE 100 MG SC Q12H BLOOD THINNER ( Reported) Ferrous Sulfate 325 MG (65 MG IRON) TABLET 1 TAB PO BID ANEMIA (Reported) Folic Acid 1 MG TABLET 1 TAB PO DAILY SUPPLEMENT (Reported) Levetiracetam (Keppra) 1,000 MG TABLET 1 TAB PO Q12H seizure prophylaxis Loperamide HCl (Imodium A-D) 2 MG TABLET 1 TAB PO Q6H PRN LOOSE STOOL ( Reported) Magnesium Hydroxide (Milk Of Magnesia) 400 MG/5 ML ORAL.SUSP 30 ML PO DAILY PRN CONSTIPATION (Reported) Magnesium Oxide 400 MG TABLET 400 MG PO BID hypomagnesemia Metoprolol Tartrate (Lopressor) 50 MG TABLET 75 MG PO BID HTN/TACYHCARDIA ( Reported) Multivitamin (Daily Multiple Vitamin) 1 EACH TABLET 1 TAB PO DAILY SUPPLEMENT (Reported) Na Phos,M-B/Na Phos,Di-Ba (Fleet Enema) 19 GRAM-7 GRAM/118 ML ENEMA 1 E RC DAILY PRN CONSTIPATION (Reported) Omeprazole 40 MG CAPSULE.DR 1 CAP PO DAILY acidity Ondansetron HCl 4 MG TABLET 1 TAB PO Q6P PRN N/V (Reported) Oxybutynin Chloride 5 MG TABLET 1 TAB PO DAILY (Reported) Phenytoin Sodium Extended 100 MG CAPSULE 2 CAP PO BID SEIZURES (Reported) Sertraline HCl (Zoloft) 100 MG TABLET 1 TAB PO QPM DEPRESSION (Reported) [TPN] TPN (Reported) Trazodone HCl 50 MG TABLET 1 TAB PO QHS INSOMNIA (Reported) Current Medications: Current Medications Sig/Ghulam Start time Last Medication Dose Route Stop Time Status Admin Albuterol Sulfate 3 ML Q6H PRN 03/11 0930 AC INH Alprazolam 0.25 MG BID PRN 03/11 0930 AC PO 03/18 0929 Ceftazidime 1,000 MG IQ8 03/11 1600 AC IV Ceftazidime 0 .STK-MED ONE 03/11 0446 DC .ROUTE Ceftazidime 1,000 MG ONCE ONE 03/11 0430 DC 03/11 IV 03/11 043 0449 Diltiazem HCl 180 MG DAILY 03/11 1000 DC PO Dopamine HCl 400 MG ONCE ONE 03/11 0615 CAN Dextrose/Water 500 ML IV 03/11 0616 Levetiracetam 1,000 MG BID 03/11 1000 AC 03/11 PO 1100 Metoprolol Tartrate 75 MG BID 03/11 1000 DC PO Norepinephrine 4 MG ONCE ONE 03/11 0645 DC 03/11 Sodium Chloride 250 ML IV 03/11 0646 0710 Ondansetron HCl 4 MG Q6P PRN 03/11 0930 AC IV Oxybutynin Chloride 5 MG DAILY 03/11 1000 AC 03/11 PO 1100 Pantoprazole Sodium 0 .STK-MED ONE 03/11 1404 DC IV Pantoprazole Sodium 0 .STK-MED ONE 03/11 0942 DC IV Pantoprazole Sodium 40 MG Q5H 03/11 0930 AC 03/11 Sodium Chloride 100 ML IV 1406 Pantoprazole Sodium 40 MG Q5H 03/11 0645 DC Sodium Chloride 100 ML IV Pantoprazole Sodium 0 .STK-MED ONE 03/11 0350 DC IV Pantoprazole Sodium 80 MG ONCE ONE 03/11 0345 DC 03/11 IV 03/11 0346 0345 Phenytoin 200 MG BID 03/11 1000 AC 03/11 PO 1100 Sertraline HCl 100 MG QPM 03/11 2200 AC PO Sodium Chloride 1,000 ML BOLUS ONE 03/11 0345 DC 03/11 IV 03/11 0444 0643 Sodium Chloride 1,000 ML BOLUS ONE 03/11 0215 DC 03/11 IV 03/11 0314 0340 Sodium Chloride 1,000 ML BOLUS ONE 03/11 0215 DC 03/11 IV 03/11 0314 0302 Sodium Chloride 1,000 ML BOLUS ONE 03/11 0115 DC 03/11 IV 03/11 0214 0055 Trazodone HCl 50 MG AT BEDTIME 03/11 2200 AC PO Vancomycin HCl 1,500 MG 0430,1630 03/11 1630 AC Sodium Chloride 250 ML IV Vancomycin HCl 1,500 MG .[Q12 1630/0430] 03/11 1130 CAN IV Vancomycin HCl 0 .STK-MED ONE 03/11 0446 DC .ROUTE Vancomycin HCl 1,000 MG ONCE ONE 03/11 0430 DC 03/11 Sodium Chloride 250 ML IV 03/11 0529 0458 Past History Travel History Traveled to [place] past 21 day No Medical History Neurological: seizure, childhood encephalitis EENT: NONE Cardiovascular: syncope (possible unwitnessed) Respiratory: pulmonary embolism (06/2014) Gastrointestinal: GERD (mild), hiatal hernia, large pelvic mass Hepatic: NONE Renal: benign prost hyperplasia Musculoskeletal: osteopenia; TL compression fractures Psychiatric: NONE Endocrine: osteopenia Blood Disorders: anemia, PE (06/2014) Cancer(s): 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 MOTHER, , Age 50-60; Cause: Cancer of unknown origin. BROTHER ([employer]). Relation not specified for: *No pertinent family history Psychosocial History Services at Home: None Primary Language: Thai ETOH Use: denies use Illicit Drug Use: denies illicit drug use Living Will? yes Power of Fraud Manager/HCP? unknown Name of POA/HCP: brother Functional Ability ADLs Unknown: dressing, eating, toileting, bathing. Ambulation: independent IADLs Unknown: shopping, housework, finances, food prep, telephone, transportation, medication admin. Review of Systems Review of Systems Constitutional: Reports: malaise, weakness. Denies: diaphoresis, fever. EENTM: Denies: no symptoms. Cardiovascular: Reports: palpitations. Denies: chest pain. Respiratory: Reports: short of breath. Denies: cough, hemoptysis, sputum production. GI: Reports: see HPI. Genitourinary: Denies: no symptoms. Musculoskeletal: Denies: no symptoms. Skin: Denies: no symptoms. Neurological/Psychological: Denies: no symptoms. Hematologic/Endocrine: Reports: bleeding. Immunologic/Allergic: Denies: no symptoms. All Other Systems: Reviewed and Negative Exam & Diagnostic Data Vital Signs and I&O Vital Signs Date Time Temp Pulse Resp B/P B/P Pulse O2 O2 Flow FiO2 Mean Ox Delivery Rate 03/11 1122 116 18 106/68 98 Nasal 3.0L Cannula 03/11 1115 114 18 97/62 99 Nasal 3.0L Cannula 03/11 1106 97.9 99 18 100/60 99 Nasal 3.0L Cannula 03/11 1100 98.1 110 18 98/56 98 Nasal 3.0L Cannula 03/11 1030 112 18 96/58 97 Nasal 3.0L Cannula 03/11 1000 98.4 109 18 99/57 98 Nasal 3.0L Cannula 03/11 0952 111 18 93/56 98 Nasal 3.0L Cannula 03/11 0937 115 18 95/51 97 Nasal 3.0L Cannula 03/11 0922 117 18 103/57 98 Nasal 3.0L Cannula 03/11 0907 117 18 113/58 99 Nasal 3.0L Cannula 03/11 0842 98.9 118 18 94/59 97 Nasal 3.0L Cannula / 0832 120 20 91/53 94 Nasal 3.0L Cannula 03/11 0822 120 20 93/55 100 Nasal 3.0L Cannula 03/11 0810 119 20 95/53 94 Nasal 3.0L Cannula 03/11 0810 123 20 125/66 93 Nasal 3.0L Cannula 03/11 0805 122 20 96/56 95 Nasal 3.0L Cannula 03/11 0757 122 20 99/54 99 Nasal 3.0L Cannula 03/11 0752 116 18 102/59 99 Nasal 3.0L Cannula 03/11 0748 116 20 98/59 100 Nasal 3.0L Cannula 03/11 0743 115 20 94/53 98 Nasal 3.0L Cannula 03/11 0732 116 18 97/55 97 Nasal 3.0L Cannula 03/11 0725 99.2 117 18 95/51 98 Nasal 3.0L Cannula 03/11 0720 117 18 94/55 98 Nasal 3.0L Cannula 03/11 0715 117 18 86/51 98 Nasal 3.0L Cannula 03/11 0710 97.5 115 18 81/50 / 0644 97.5 115 18 81/50 95 Nasal 3.0L Cannula 03/11 0524 122 18 78/54 98 Nasal 3.0L Cannula 03/11 0303 97.5 123 18 77/52 98 Nasal 3.0L Cannula 03/11 0135 128 20 78/50 98 Nasal 3.0L Cannula 03/11 0110 130 12 84/48 98 Nasal 3.0L Cannula 03/11 0051 136 12 76/51 99 Nasal 3.0L Cannula 03/11 0025 99.0 136 12 74/46 96 Room Air 03/10 2330 Nasal 3.5L Cannula 03/10 2300 100.5 138 20 97/60 98 Nasal 3.0L Cannula Intake & Output 03/11 1600 03/11 0400 03/10 1600 03/10 0400 03/09 1600 03/09 0400 Intake Total 350 Output Total Balance 350 Intake, Blood 350 Product Patient 201 lb Weight Weight Reported by Patient Measurement Method Physical Exam: Pt refused a physical exam by me saying he didn't want to be touched. Results Pertinent Lab Results: Laboratory Tests 03/11 03/11 0735 0561 Blood Gas pH (7.35 - 7.45 PH) 7.52 H pCO2 (35 - 45 TORR) 34 L pO2 (80 - 100 TORR) 98 HCO3 (21 - 28 MEQ/L) 27 ABG O2 Sat (Measured) (>96.0 %) 98.0 P-50 (Temp Corrected) N Carboxyhemoglobin (1.5 - 5.0 %) 1.6 O2 Concentration % 3LPM O2 Delivery Method NC Chemistry Lactic Acid (0.7 - 2.1 mmol/L) 1.0 Miscellaneous Phlebotomy Draw Site LEFT BRACHIAL 03/11 03/11 03/11 0410 0407 0350 Coagulation D-Dimer High Sensitivty (0 - 243 ng/ml) 625 H Urines Urinalysis LIGHT H Urine Color (YEL,AMB,STR) YEL Cancelled Urine Clarity (CLEAR) CLDY H Cancelled Urine pH (5.0 - 8.0) 6.0 Cancelled Ur Specific [place] (1.001 - 1.035) 1.020 Cancelled Urine Protein (NEG,<30 MG/DL) 100 H Cancelled Urine Ketones (NEG) NEG Cancelled Urine Nitrite (NEG) NEG Cancelled Urine Bilirubin (NEG) NEG Cancelled Urine Urobilinogen (0.1 - 1.0 EU/dl) 2.0 H Cancelled Ur Leukocyte Esterase (NEG) LARGE H Cancelled Ur Microscopic SEDIMENT EXAMINED Cancelled Urine RBC (0 - 5 /HPF) 10-15 H Urine WBC (0 - 2 /HPF) > 75 H Ur Epithelial Cells (NONE,FEW) RARE Urine Bacteria (NEG/NONE) PACKD H Urine Mucus (FEW,NONE) FEW Urine Hemoglobin (NEG) LARGE H Cancelled Urine Glucose (N MG/DL) NEG Cancelled 03/11 03/11 0257 0257 Chemistry Sodium (137 - 145 mmol/L) 145 Potassium (3.5 - 5.1 mmol/L) 4.4 Chloride (98 - 107 mmol/L) 107 Carbon Dioxide (22 - 30 mmol/L) 29 Anion Gap (5 - 16) 9 BUN (9 - 20 mg/dL) 47 H Creatinine (0.7 - 1.2 mg/dL) 0.6 L Estimated GFR (>60 ml/min) > 60 BUN/Creatinine Ratio (7 - 25 %) 78.3 H Glucose (65 - 99 mg/dL) 75 Lactic Acid (0.7 - 2.1 mmol/L) 1.9 Calcium (8.4 - 10.2 mg/dL) 7.9 L Total Bilirubin (0.2 - 1.3 mg/dL) 0.4 AST (17 - 59 U/L) 59 ALT (21 - 72 U/L) 59 Alkaline Phosphatase (< 127 U/L) 191 H Troponin I (<0.11 ng/ml) 0.04 Total Protein (6.3 - 8.2 g/dL) 5.3 L Albumin (3.5 - 5.0 g/dL) 1.9 L Globulin (1.9 - 4.2 gm/dL) 3.4 Albumin/Globulin Ratio (1.1 - 2.2 %) 0.6 L Amylase (30 - 110 U/L) 66 Lipase (23 - 300 U/L) 73 Hematology CBC w Diff MAN DIFF ORDERED WBC (4.8 - 10.8 /CUMM) 21.6 H RBC (4.70 - 6.10 /CUMM) 2.43 L Hgb (14.0 - 18.0 G/DL) 6.7 *L Hct (42 - 52 %) 21.7 L MCV (80.0 - 94.0 FL) 89.4 MCH (27.0 - 31.0 PG) 27.6 RDW (11.5 - 14.5 %) 18.5 H Plt Count (130 - 400 /CUMM) 335 MPV (7.4 - 10.4 FL) 9.1 Gran % (42.2 - 75.2 %) 94.8 H Lymphocytes % (20.5 - 51.1 %) 3.6 L Monocytes % (1.7 - 9.3 %) 1.6 L Eosinophils % (0 - 5 %) 0 Basophils % (0.0 - 2.0 %) 0 L Absolute Granulocytes (1.4 - 6.5 /CUMM) 20.5 H Segmented Neutrophils (42.2 - 75.2 %) 95 H Band Neutrophils (0.0 - 5.0 %) 3 Absolute Lymphocytes (1.2 - 3.4 /CUMM) 0.8 L Lymphocytes (20.5 - 51.1 %) 1 L Monocytes (1.7 - 9.3 %) 1 L Absolute Monocytes (0.10 - 0.60 /CUMM) 0.3 Absolute Eosinophils (0.0 - 0.7 /CUMM) 0 Absolute Basophils (0.0 - 0.2 /CUMM) 0 Platelet Estimate (ADEQUATE) ADEQUATE Polychromasia 1+ Hypochromic-Microcytic 1+ Poikilocytosis 1+ Ovalocytes 1+ Stomatocytes FEW PUBS MCHC (33.0 - 37.0 G/DL) 30.9 L Other Body Source Fld Total RBCs Counted (%) 100 Assessment/Plan Assessment/Recommendations: Assessment: Mr. Carrion is a 61 year old male with multiple medical problems on coumadin for a PE and s/p a recent right hemicolectomy for a pelvic mass the bulk of which was left behind and according to him is not resectable who presents with a fall in his hgb and dark stool with a low BP along with an increased BUN/Cr ratio which is all very suggestive of an active upper GI bleed which is likely exacerbated by the anticoagulation. While ideally we would perform an upper endoscopy in this situation he is currently adamantly refusing any further interventions except for pressors. Hopefully his bleeding will cease with holding of his anticoagulation and his BP will improve with treatment of his sepsis. 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 If he continues to refuse all interventions, however, getting his records probably isn't absolutely necessary. Recommendations: 1. Follow CBC q8hrs and transfuse as needed to keep his hemoglobin greater than 8 or as per cardiology recommendations. 2. Would hold all anticoagulation and NSAIDs. 3. Maintain 2 large-bore IVs at all times as the patient allows. 4. Would keep nothing by mouth for now, but if he continues to refuse endoscopic intervention would then consider advancing to liquid diet later today. 5. Continue IV Protonix drip for now. 6. Notify GI for evidence of active bleeding if he changes his mind about undergoing an endoscopy. 7. Continue pressors for blood pressure support as needed. 8. Antibiotics as per critical care team. I will continue to follow this patient and make further recognitions based on his clinical course, repeat blood work and his wishes. Problem List: 1. DNR (do not resuscitate) 2. Abnormal CT of the abdomen 3. Rectal bleeding 4. Malnutrition 5. GI bleed 6. Shock 7. Pseudomyxoma peritonei Consult Acknowledgment - Thank you for your consult request.
--- NOTE | 2017-03-11 14:59 | NUR ---
PT NOTED WITH SMALL TO MODERATE AMOUNT OF WATERY BLACK STOOL, SKIN AND PERICARE GIVEN, SKIN BARRIER LOTION APPLIED, PT REPOSITIONED ONTO SIDE FOR COMFORT. VITALS REMAIN STABLE, AFEBRILE.
--- NOTE | 2017-03-11 19:04 | NUR ---
PT ASSIGNED TO ROOM 104 BED 1
--- NOTE | 2017-03-11 19:15 | NUR ---
ASSUMED CARE AT THIS TIME, LEVOPHED NOTED TO BE INFUSING AT 2.6 ML/HR ,BP AT THIS TIME 99/61 , HR 105 SINUS TACH ON MONITOR. ACE EMPTIED OF 620 ML BROWN URINE. PT ALERT AND ORIENTED BUT NOTED TO BE VERY PALE. PT STATES THAT HE JUST DOES NOT FEEL WELL, O2 SAT 99 % ON 2L VIA NC. PT NOTED WITH PITTING EDEMA TO ALL EXTREMITIES. PT REPOSITIONED AND PILLOWS PLACED FOR PT COMFORT. SKIN TO BILATERAL HEELS NOTED TO BE DRY AND FLAKEY.
--- NOTE | 2017-03-11 19:25 | NUR ---
CRITICAL TEST RESULTS [id number] JUANY GONZALEZ 61 M TESTS AND RESULTS: GRAM - RODS 1 BOTTLE FIRST SET Results received and read back by: PIETRO REYES Results received date and time: 03/11/171924 The following provider was notified of the results, and read the results back: CHRISTINE FERREIRA AT 362 Notified date and time: 03/11/17 at 1930
--- NOTE | 2017-03-11 19:47 | Event Note ---
Event Note Event Note: I saw him again at 7:10 PM. Patient is alert and oriented. After 2 units of blood transfusion his H&H improved to 7.6/23.5. I also discussed with him his current condition and plan of care. He is still refusing endoscopy and also refusing physical exam. He is feeling little better and requesting to keep him as it is. He also stated that he would let us know in case if he changes his mind. He was started prophylactically on vancomycin and Ceftaz.
--- NOTE | 2017-03-11 19:49 | NUR ---
PT NOTED WITH SMALL AMOUNT OF WATERY DARK BM, INCONTINENT CARE PROVIDED AND PT NOTED WITH DIME SIZE AREA TO HIS MID BACK ON SPINE THAT IS STARTING TO OPEN, PT REPOSITIONED ONTO HIS L SIDE AND BARRIER CREAM APPLIED TO THE AREA, PILLOWS PLACED BEHIND HIS BACK AND UNDER BILATERAL FEET TO KEEP HEELS OFF MATRESS AT THIS TIME. PT COMPLAINS OF DIFFUSE ALL OVER PAIN AT THIS TIME.
--- NOTE | 2017-03-11 19:53 | NUR ---
BP 95/66 AT THIS TIME LEVOPHED INCREASED TO 2.08 MCG/MIN ( 7.8 ML/HR) AT THIS TIME. WILL CONTINUE TO MONITOR. PT CALL PAYNE IN REACH AND ENCOURAGED TO RING IF HE HAS A BM, OR IF ANY CHANGES IN HOW HE FEELS.
--- NOTE | 2017-03-11 20:08 | NUR ---
PROTONIX 40 MG IV INFUSING TO PRIMAL LUMEN IN RIJ AT 20 ML/HR (8MG/HR) STARTED AT THIS TIME VIA PUMP. BP 101/62 HR 106. PT REQUESTING A COUPLE ICE CHIPS WHICH WERE PROVIDED AND TOLERATED WELL AT THIS TIME
--- NOTE | 2017-03-11 20:24 | NUR ---
BP 106/72 AT THIS TIME, LEVOPHED INFUSING AT 2.08 MCG/MIN. WILL CONTINUE TO MONITOR
--- NOTE | 2017-03-11 20:38 | NUR ---
PT ASSIGNED TO ROOM 113 BED 01
--- NOTE | 2017-03-11 20:39 | NUR ---
BP 103/68 HR 111, LEVOPHED DRIP REMAINS AT 20.08 MCG/MIN. PT REMAINS ALERT AND ORIENTED
--- NOTE | 2017-03-11 20:44 | NUR ---
LEVOPHED INFUSING AT 2.08 MCG/HR
--- NOTE | 2017-03-11 20:45 | NUR ---
JASMIN TO CALL BACK FOR REPORT
--- NOTE | 2017-03-11 20:51 | NUR ---
2100 CBC SENT TO LAB AT THIS TIME.
[2017-03-11 20:54] LABS: ABSOLUTE BASOPHIL COUNT 0.3 /CUMM (0.0-0.2); ABSOLUTE EOSINOPHIL COUNT 0 /CUMM (0.0-0.7); ABSOLUTE GRANULOCYTE CT 9.6 /CUMM (1.4-6.5); ABSOLUTE LYMPH COUNT 0.9 /CUMM (1.2-3.4); ABSOLUTE MONOCYTE COUNT 0.5 /CUMM (0.10-0.60); BASOPHIL % 2.4 % (0.0-2.0); EOSINOPHIL % 0.1 % (0-5); HEMATOCRIT 22.2 % (42-52); MEAN CORPUSCULAR HGB 28.1 PG (27.0-31.0); MEAN CORPUSCULAR HGB CONC 31.9 G/DL (33.0-37.0); MEAN CORPUSCULAR VOLUME 88.2 FL (80.0-94.0); MEAN PLATELET VOLUME 8.3 FL (7.4-10.4); PLATELET COUNT 281 /CUMM (130-400); RBC DISTRIBUTION WIDTH 18.4 % (11.5-14.5); RED BLOOD CELL CT 2.51 /CUMM (4.70-6.10); WHITE BLOOD CELL COUNT 11.3 /CUMM (4.8-10.8)
--- NOTE | 2017-03-11 21:02 | NUR ---
CRITICAL TEST RESULTS [id number] JUANY GONZALEZ 61 M TESTS AND RESULTS: HEMOGLOBIN 7.1 HCT 22.2 Results received and read back by: ASIYA TUCKER Results received date and time: 03/11/172102 The following provider was notified of the results, and read the results back: CAROL ANN COYD Notified date and time: 03/11/17 at 210
--- NOTE | 2017-03-11 21:04 | NUR ---
REPORT TO CARLA
[2017-03-12] VITALS: BP 102/56
--- NOTE | 2017-03-12 00:03 | NUR ---
03/11/17: @2130, PT ADMITTED FROM ER WITH NO DIFFICULTIES.PT A/OX3 AND FOLLOWING COMMANDS. ORIENTED PT TO SURROUNDINGS AND PLACED ON CONTINUOUS MONITOR. AVSS. +PP.GEN EDEMA (SHAR LE'S > SHAR LE'S;PITTING).(SHAR) RIGHT ARM PICC INTACT BUT LEAKING AND MADE AWARE. RIGHT IJ TLC SITE INTACT.SBP RANGING 90-100'S AND LEVOPHED/ PROTONIX GTT CONT WITH NO ISSUES.REPEAT CBC RESULTS REVIEWED WITH DR. CLEMENTE AND PLAN FOR FURTHER TRANSFUSION ORDERED.PT MADE AWARE OF DECISION BUT REQUESTING TO HOLD TRANSFUSION UNTIL HE MAKE FINAL DECISIONS; AWARE OF PLANS.LUNG SOUNDS DIMINISHED AND ON 3L O2 WITH SATS >95%.HOB ELEVATED. PIV X2 INTACT.NPO.ACE PATENT WITH DECREASE TEA COLORED URINE. MADE AWARE.NO PRESSURE ULCERS NOTED BUT REDDENED UPPER THORACIC NOTED BUT INTACT.PLAN OF CARE REVIEWED.
[2017-03-12 05:28] LABS: ABSOLUTE BASOPHIL COUNT 0 /CUMM (0.0-0.2); ABSOLUTE EOSINOPHIL COUNT 0 /CUMM (0.0-0.7); ABSOLUTE GRANULOCYTE CT 10.7 /CUMM (1.4-6.5); ABSOLUTE LYMPH COUNT 0.9 /CUMM (1.2-3.4); BASOPHIL % 0.1 % (0.0-2.0); EOSINOPHIL % 0.1 % (0-5); GRANULOCYTE % 84.9 % (42.2-75.2); HEMATOCRIT 26.8 % (42-52); MEAN CORPUSCULAR HGB CONC 32.4 G/DL (33.0-37.0); MEAN CORPUSCULAR VOLUME 89.4 FL (80.0-94.0); MEAN PLATELET VOLUME 9.3 FL (7.4-10.4); PLATELET COUNT 257 /CUMM (130-400); RBC DISTRIBUTION WIDTH 17.6 % (11.5-14.5); WHITE BLOOD CELL COUNT 12.6 /CUMM (4.8-10.8)
--- NOTE | 2017-03-12 06:01 | NUR ---
PT HAD 350ML OF D BROWN FECAL DRAINAGE FROM MD MALKA NOTIFIED, WILL CONT TO MON.
[2017-03-12 08:00] VITALS: BP 110/70
--- NOTE | 2017-03-12 08:28 | ECHOCARDIOGRAM REPORT ---
JUANY GONZALEZ Age: 61 : 1955 Gender: M Exam Date: 03/11/2017 11:32 Exam Location: ER Ht (in): 73 Wt (lb): 201 BSA: 2.18 BP: 91 / 53 Ordering Physician: CHRISTINE FERREIRA MD Referring Physician: CHRISTINE FERREIRA MD Technologist: Carlin Ramsey RUPERT Room Number: 11 Indications: Tachycardia, SVT Rhythm: sinus tachycardiafair Technical Quality: fair FINDINGS Left Ventricle Normal left ventricular size, wall thickness and systolic function with focal regional wall motion abnormalities. The ejection fraction is visually estimated at 30%. Right Ventricle The right ventricle is severely enlarged with decreased function. Right Atrium The right atrium is mildly enlarged. Left Atrium The left atrium is normal in size. The interatrial septum is intact. Mitral Valve The mitral valve is normal in structure and function. There is trace eccentric mitral regurgitation. Aortic Valve Structurally normal aortic valve without significant sclerosis or stenosis. There is no aortic regurgitation. Tricuspid Valve The tricuspid valve is normal in structure and function. There is trace tricuspid regurgitation. Pulmonary artery systolic pressure is moderately elevated to 43.6mmHg. Pulmonic Valve Structurally normal pulmonic valve. There is no pulmonic regurgitation. Pericardium Normal pericardium without effusion. No pleural effusion. Great Vessels Normal aortic root dimension. The aortic arch and great vessels are well seen and are normal. CONCLUSIONS 1. Moderately decreased EF of 30%. 2. Severe right ventricular enlargement with decreased contractility. 3. Mildly enlarged right atrium. 4. Trace mitral regurgitation. 5. Moderate pulmonary hypertension. Lincoln Aragon M.D. (Electronically Signed) Final Date: 12 March 2017 08:28 MEASUREMENTS (Male / Female) Normal Values 2D ECHO LV Diastolic Diameter PLAX 5.9 cm 4.2 - 5.9 / 3.9 - 5.3 cm LV Systolic Diameter PLAX 4.8 cm 2.1 - 4.0 cm LV Fractional Shortening PLAX 18.6 % 25 - 46 % LV Ejection Fraction 2D Teich 37.9 % IVS Diastolic Thickness 1.0 cm LVPW Diastolic Thickness 1.0 cm LV Relative Wall Thickness 0.3 RV Internal Dim ED PLAX 4.4 cm 1.9 - 3.8 cm LVOT Diameter 2.5 cm Aortic Root Diameter 3.7 cm LA Systolic Diameter LX 3.8 cm 3.0 - 4.0 / 2.7 - 3.8 cm LA Volume 53.0 cm 18 - 58 / 22 - 52 cm Ascending Aorta Diameter 3.4 cm DOPPLER AV Peak Velocity 131.0 cm/s AV Peak Gradient 6.9 mmHg AV Mean Velocity 106.0 cm/s AV Mean Gradient 5.0 mmHg AV Velocity Time Integral 24.5 cm LVOT Peak Velocity 60.9 cm/s LVOT Peak Gradient 1.5 mmHg LVOT Mean Velocity 43.3 cm/s LVOT Mean Gradient 1.0 mmHg LVOT Velocity Time Integral 10.0 cm LVOT Stroke Volume 49.1 cm AV Area Cont Eq vti 2.0 cm AV Area Cont Eq pk 2.3 cm MV Peak Velocity 70.3 cm/s MV Peak Gradient 2.0 mmHg MV Mean Velocity 47.2 cm/s MV Mean Gradient 1.0 mmHg Mitral E Point Velocity 58.7 cm/s Mitral A Point Velocity 61.2 cm/s Mitral E to A Ratio 1.0 MV PHT Velocity 59.7 cm/s MV Deceleration Wilkinson 394.0 cm/s MV Pressure Half Time 45.5 ms MV Area PHT 4.8 cm MV Deceleration Time 187.0 ms TR Peak Velocity 290.0 cm/s TR Peak Gradient 33.6 mmHg Right Atrial Pressure 10.0 mmHg Pulmonary Artery Systolic Pressu 43.6 mmHg Right Ventricular Systolic Press 43.6 mmHg
--- NOTE | 2017-03-12 10:12 | PN- CRCU ---
Subjective HPI/Critical Care Issues: Continues to be on vasopressors and antibiotics Does not wish to be aggressively treated he feels better Adequate urine output noted Afebrile Continues to be on Protonix and levo fed Objective Current Medications: Current Medications Sig/Ghulam Start time Last Medication Dose Route Stop Time Status Admin Albuterol Sulfate 3 ML Q6H PRN 03/11 0930 AC INH Alprazolam 0.25 MG BID PRN 03/11 0930 AC PO 03/18 0929 Ceftazidime 1,000 MG IQ8 03/11 1600 AC 03/12 IV 0110 Ceftazidime 0 .STK-MED ONE 03/11 1559 DC .ROUTE Levetiracetam 1,000 MG Q12 03/11 2252 AC 03/11 N/A 1 UNIT IV 2343 Levetiracetam 1,000 MG BID 03/11 1000 DC 03/11 PO 1100 Ondansetron HCl 4 MG Q6P PRN 03/11 0930 AC IV Oxybutynin Chloride 5 MG DAILY 03/11 1000 AC 03/11 PO 1100 Pantoprazole Sodium 40 MG .STK-MED ONE 03/12 0000 DC IV 03/12 0001 Pantoprazole Sodium 0 .STK-MED ONE 03/11 2006 DC IV Pantoprazole Sodium 0 .STK-MED ONE 03/11 1404 DC IV Pantoprazole Sodium 40 MG Q5H 03/11 0930 AC 03/12 Sodium Chloride 100 ML IV 0503 Phenytoin 200 MG BID 03/11 2253 AC 03/11 Sodium Chloride 50 ML IV 2343 Phenytoin 200 MG BID 03/11 1000 DC 03/11 PO 1100 Sertraline HCl 100 MG QPM 03/11 2200 AC PO Trazodone HCl 50 MG AT BEDTIME 03/11 2200 AC PO Vancomycin HCl 1,500 MG 0430,1630 03/11 1630 AC 03/12 Sodium Chloride 250 ML IV 0355 Vancomycin HCl 1,500 MG .[Q12 1630/0430] 03/11 1130 CAN IV Vital Signs & I&O Last 24 Hrs of Vitals and I&O: Vital Signs Date Time Temp Pulse Resp B/P B/P Pulse O2 O2 Flow FiO2 Mean Ox Delivery Rate 03/12 0400 97 Nasal 3.0L Cannula 03/12 0000 96 Nasal 3.0L Cannula 03/12 0000 99.2 110 29 102/56 96 Nasal 3.0L Cannula 03/11 2331 96 Nasal 3.0L Cannula 03/11 2112 98.9 114 20 101/67 98 Nasal 2.0L Cannula 03/110 110 103/67 03/117 110 103/68 03/113 112 106/72 03/11 2009 98.2 108 20 101/62 98 Nasal 2.0L Cannula 03/11 1952 98.1 100 20 95/66 98 Nasal 2.0L Cannula 03/11 1937 98.3 110 20 96/63 98 Nasal 2.0L Cannula 03/11 1915 98.9 106 20 99/61 99 Nasal 2.0L Cannula 03/11 1759 109 105/64 99 Nasal Cannula 03/11 1523 104 18 97/53 99 Nasal 3.0L Cannula 03/11 1452 97.8 110 18 91/56 98 Nasal 3.0L Cannula 03/11 1437 98.0 103 18 97/62 99 Nasal 3.0L Cannula 03/11 1410 108 18 95/65 99 Nasal 3.0L Cannula 03/11 1406 98.1 107 18 98/66 99 Nasal 3.0L Cannula 03/11 1352 106 18 95/65 99 Nasal 3.0L Cannula 03/11 1337 106 18 92/64 99 Nasal 3.0L Cannula 03/11 1322 106 18 99/63 99 Nasal 3.0L Cannula 03/11 1309 97.8 110 20 98/63 07/ 1307 107 18 98/59 98 Nasal 3.0L Cannula / 1258 111 18 98/63 99 Nasal 3.0L Cannula 03/11 1252 109 18 97/63 99 Nasal 3.0L Cannula 03/11 1241 97.8 110 20 98/63 97 07/ 1207 109 18 102/71 98 Nasal 3.0L Cannula 07/13 1152 107 18 102/70 98 Nasal 3.0L Cannula / 1137 107 18 99/63 99 Nasal 3.0L Cannula 07/ 1122 116 18 106/68 98 Nasal 3.0L Cannula 07/ 1115 114 18 97/62 99 Nasal 3.0L Cannula 07/ 1106 97.9 99 18 100/60 99 Nasal 3.0L Cannula 07/ 1100 98.1 110 18 98/56 98 Nasal 3.0L Cannula 03/11 1030 112 18 96/58 97 Nasal 3.0L Cannula Intake & Output 03/12 1600 03/12 0800 03/12 0000 Intake Total 992.9 83.4 Output Total 330 670 Balance 662.9 -586.6 Intake, Blood 350 Product Intake, IV 642.9 83.4 Intake, Oral 0 Number 2 0 Bowel Movements Output, Urine 330 670 Patient 201 lb Weight Laboratory Tests 03/12 03/11 0354 2049 Chemistry Sodium (137 - 145 mmol/L) 145 Potassium (3.5 - 5.1 mmol/L) 3.9 Chloride (98 - 107 mmol/L) 108 H Carbon Dioxide (22 - 30 mmol/L) 26 Anion Gap (5 - 16) 10 BUN (9 - 20 mg/dL) 41 H Creatinine (0.7 - 1.2 mg/dL) 0.7 Estimated GFR (>60 ml/min) > 60 Glucose (65 - 99 mg/dL) 66 Calcium (8.4 - 10.2 mg/dL) 7.7 L Phosphorus (2.5 - 4.5 mg/dL) 4.3 Magnesium (1.6 - 2.3 mg/dL) 1.8 Total Bilirubin (0.2 - 1.3 mg/dL) 0.3 AST (17 - 59 U/L) 33 ALT (21 - 72 U/L) 51 Albumin (3.5 - 5.0 g/dL) 1.7 L Hematology CBC w Diff MAN DIFF ORDERED NO MAN DIFF REQ WBC (4.8 - 10.8 /CUMM) 12.6 H 11.3 H RBC (4.70 - 6.10 /CUMM) 3.00 L 2.51 L Hgb (14.0 - 18.0 G/DL) 8.7 L 7.1 *L Hct (42 - 52 %) 26.8 L 22.2 L MCV (80.0 - 94.0 FL) 89.4 88.2 MCH (27.0 - 31.0 PG) 29.0 28.1 RDW (11.5 - 14.5 %) 17.6 H 18.4 H Plt Count (130 - 400 /CUMM) 257 281 MPV (7.4 - 10.4 FL) 9.3 8.3 Gran % (42.2 - 75.2 %) 84.9 H 85.0 H Lymphocytes % (20.5 - 51.1 %) 7.1 L 8.0 L Monocytes % (1.7 - 9.3 %) 7.8 4.5 Eosinophils % (0 - 5 %) 0.1 0.1 Basophils % (0.0 - 2.0 %) 0.1 2.4 H Absolute Granulocytes (1.4 - 6.5 /CUMM) 10.7 H 9.6 H Segmented Neutrophils (42.2 - 75.2 %) 83 H Band Neutrophils (0.0 - 5.0 %) 4 Absolute Lymphocytes (1.2 - 3.4 /CUMM) 0.9 L 0.9 L Lymphocytes (20.5 - 51.1 %) 7 L Monocytes (1.7 - 9.3 %) 6 Absolute Monocytes (0.10 - 0.60 /CUMM) 1.0 H 0.5 Absolute Eosinophils (0.0 - 0.7 /CUMM) 0 0 Absolute Basophils (0.0 - 0.2 /CUMM) 0 0.3 Platelet Estimate (ADEQUATE) ADEQUATE Polychromasia 1+ Hypochromic-Microcytic 1+ Poikilocytosis 1+ Basophilic Stippling SLIGHT Ovalocytes FEW Stomatocytes 1+ PUBS MCHC (33.0 - 37.0 G/DL) 32.4 L 31.9 L Other Body Source Fld Total RBCs Counted (%) 100 03/11 03/11 03/11 1930 1420 1200 Chemistry Troponin I (<0.11 ng/ml) 0.01 Cancelled TSH (0.270 - 4.200 uIU/mL) 2.940 Free T4 (0.78 - 2.44 ng/dL) 1.05 Thyroxine (T4) (4.5 - 10.9 ug/dL) 3.4 L Hematology CBC w Diff NO MAN DIFF REQ WBC (4.8 - 10.8 /CUMM) 10.8 RBC (4.70 - 6.10 /CUMM) 2.70 L Hgb (14.0 - 18.0 G/DL) 7.6 L Hct (42 - 52 %) 23.5 L MCV (80.0 - 94.0 FL) 87.3 MCH (27.0 - 31.0 PG) 28.1 RDW (11.5 - 14.5 %) 17.8 H Plt Count (130 - 400 /CUMM) 296 MPV (7.4 - 10.4 FL) 8.5 Gran % (42.2 - 75.2 %) 84.3 H Lymphocytes % (20.5 - 51.1 %) 9.3 L Monocytes % (1.7 - 9.3 %) 6.0 Eosinophils % (0 - 5 %) 0.2 Basophils % (0.0 - 2.0 %) 0.2 Absolute Granulocytes (1.4 - 6.5 /CUMM) 9.1 H Absolute Lymphocytes (1.2 - 3.4 /CUMM) 1.0 L Absolute Monocytes (0.10 - 0.60 /CUMM) 0.6 Absolute Eosinophils (0.0 - 0.7 /CUMM) 0 Absolute Basophils (0.0 - 0.2 /CUMM) 0 PUBS MCHC (33.0 - 37.0 G/DL) 32.2 L Toxicology Phenytoin (10.0 - 20.0 ug/mL) 3.7 L 03/11 03/11 0735 0541 Blood Gas pH (7.35 - 7.45 PH) 7.52 H pCO2 (35 - 45 TORR) 34 L pO2 (80 - 100 TORR) 98 HCO3 (21 - 28 MEQ/L) 27 ABG O2 Sat (Measured) (>96.0 %) 98.0 P-50 (Temp Corrected) N Carboxyhemoglobin (1.5 - 5.0 %) 1.6 O2 Concentration % 3LPM O2 Delivery Method NC Chemistry Lactic Acid (0.7 - 2.1 mmol/L) 1.0 Miscellaneous Phlebotomy Draw Site LEFT BRACHIAL 03/11 03/11 03/11 0410 0407 0350 Coagulation D-Dimer High Sensitivty (0 - 243 ng/ml) 625 H Urines Urinalysis LIGHT H Urine Color (YEL,AMB,STR) YEL Cancelled Urine Clarity (CLEAR) CLDY H Cancelled Urine pH (5.0 - 8.0) 6.0 Cancelled Ur Specific [place] (1.001 - 1.035) 1.020 Cancelled Urine Protein (NEG,<30 MG/DL) 100 H Cancelled Urine Ketones (NEG) NEG Cancelled Urine Nitrite (NEG) NEG Cancelled Urine Bilirubin (NEG) NEG Cancelled Urine Urobilinogen (0.1 - 1.0 EU/dl) 2.0 H Cancelled Ur Leukocyte Esterase (NEG) LARGE H Cancelled Ur Microscopic SEDIMENT EXAMINED Cancelled Urine RBC (0 - 5 /HPF) 10-15 H Urine WBC (0 - 2 /HPF) > 75 H Ur Epithelial Cells (NONE,FEW) RARE Urine Bacteria (NEG/NONE) PACKD H Urine Mucus (FEW,NONE) FEW Urine Hemoglobin (NEG) LARGE H Cancelled Urine Glucose (N MG/DL) NEG Cancelled 03/11 03/11 0257 0257 Chemistry Sodium (137 - 145 mmol/L) 145 Potassium (3.5 - 5.1 mmol/L) 4.4 Chloride (98 - 107 mmol/L) 107 Carbon Dioxide (22 - 30 mmol/L) 29 Anion Gap (5 - 16) 9 BUN (9 - 20 mg/dL) 47 H Creatinine (0.7 - 1.2 mg/dL) 0.6 L Estimated GFR (>60 ml/min) > 60 BUN/Creatinine Ratio (7 - 25 %) 78.3 H Glucose (65 - 99 mg/dL) 75 Lactic Acid (0.7 - 2.1 mmol/L) 1.9 Calcium (8.4 - 10.2 mg/dL) 7.9 L Total Bilirubin (0.2 - 1.3 mg/dL) 0.4 AST (17 - 59 U/L) 59 ALT (21 - 72 U/L) 59 Alkaline Phosphatase (< 127 U/L) 191 H Troponin I (<0.11 ng/ml) 0.04 Total Protein (6.3 - 8.2 g/dL) 5.3 L Albumin (3.5 - 5.0 g/dL) 1.9 L Globulin (1.9 - 4.2 gm/dL) 3.4 Albumin/Globulin Ratio (1.1 - 2.2 %) 0.6 L Amylase (30 - 110 U/L) 66 Lipase (23 - 300 U/L) 73 Hematology CBC w Diff MAN DIFF ORDERED WBC (4.8 - 10.8 /CUMM) 21.6 H RBC (4.70 - 6.10 /CUMM) 2.43 L Hgb (14.0 - 18.0 G/DL) 6.7 *L Hct (42 - 52 %) 21.7 L MCV (80.0 - 94.0 FL) 89.4 MCH (27.0 - 31.0 PG) 27.6 RDW (11.5 - 14.5 %) 18.5 H Plt Count (130 - 400 /CUMM) 335 MPV (7.4 - 10.4 FL) 9.1 Gran % (42.2 - 75.2 %) 94.8 H Lymphocytes % (20.5 - 51.1 %) 3.6 L Monocytes % (1.7 - 9.3 %) 1.6 L Eosinophils % (0 - 5 %) 0 Basophils % (0.0 - 2.0 %) 0 L Absolute Granulocytes (1.4 - 6.5 /CUMM) 20.5 H Segmented Neutrophils (42.2 - 75.2 %) 95 H Band Neutrophils (0.0 - 5.0 %) 3 Absolute Lymphocytes (1.2 - 3.4 /CUMM) 0.8 L Lymphocytes (20.5 - 51.1 %) 1 L Monocytes (1.7 - 9.3 %) 1 L Absolute Monocytes (0.10 - 0.60 /CUMM) 0.3 Absolute Eosinophils (0.0 - 0.7 /CUMM) 0 Absolute Basophils (0.0 - 0.2 /CUMM) 0 Platelet Estimate (ADEQUATE) ADEQUATE Polychromasia 1+ Hypochromic-Microcytic 1+ Poikilocytosis 1+ Ovalocytes 1+ Stomatocytes FEW PUBS MCHC (33.0 - 37.0 G/DL) 30.9 L Other Body Source Fld Total RBCs Counted (%) 100 Microbiology Date/Time Procedure - Status Source Growth 03/11 2145 Surveillance Culture - RECD UPPER RESP 03/11 2145 Surveillance Culture - RECD GI 03/11 0410 Urine Culture - COMP URINE ROUT 03/11 0257 Blood Culture - RES BLOOD GRAM NEGATIVE RODS 03/10 2320 Blood Culture - CAN BLOOD Cancelled: Quantity not sufficient for both blood culture bottles. SIGNIFICANT DATA Lower extremity ultrasound no DVT Chest x-ray showed small to moderate bilateral pleural effusion Previous abdominal ultrasound had shown small pleural effusion CT scan of the chest done in January showed bilateral effusions heparin titration of right diaphragm apical opacities abnormal gallbladder Blood cultures growing gram-negative rods previously had had Escherichia coli in his urine Impression/Plan Impression/Plan Impression/Plan: Mr. 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 His issues include Septic shock gram-negative most likely etiology is tumor necrosis with infection Gram-negative sepsis, now requiring vasopressors Significantly enlarging pelvic mass GI bleed RECOMMENDATION Continue vasopressors Taper he will fed Does not wish any further imaging Does not wish any further aggressive therapy Wean off vasopressors if able Continue ceftazidime and discontinue all of the antibiotics Kosse continue intravenous Protonix Minimize blood draws Patient can be transferred to the floor if he comes off we will fed. Patient wishes to be DNR/DNI and declines any further workup. 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
--- NOTE | 2017-03-12 10:18 | PN- Cardiology ---
Subjective Subjective: * Patient refuses care. No specific complaints. * Nursing has noted abnormal urine suspicious for contamination with feces. * Minimal requirement for pressors. * EF is decreased to about 30%. * Normal troponin. * moderate anemia post transfusion Objective Vital Signs and I&Os Vital Signs Date Time Temp Pulse Resp B/P B/P Pulse O2 O2 Flow FiO2 Mean Ox Delivery Rate 03/12 0400 97 Nasal 3.0L Cannula 03/12 0000 96 Nasal 3.0L Cannula 03/12 0000 99.2 110 29 102/56 96 Nasal 3.0L Cannula 03/11 2331 96 Nasal 3.0L Cannula 03/112 98.9 114 20 101/67 98 Nasal 2.0L Cannula 03/11 2050 110 103/67 03/11 2037 110 103/68 03/11 2023 112 106/72 03/11 2009 98.2 108 20 101/62 98 Nasal 2.0L Cannula 03/11 1952 98.1 100 20 95/66 98 Nasal 2.0L Cannula 03/11 1937 98.3 110 20 96/63 98 Nasal 2.0L Cannula 03/11 1915 98.9 106 20 99/61 99 Nasal 2.0L Cannula 03/11 1759 109 105/64 99 Nasal Cannula 03/11 1523 104 18 97/53 99 Nasal 3.0L Cannula 03/11 1452 97.8 110 18 91/56 98 Nasal 3.0L Cannula 03/11 1437 98.0 103 18 97/62 99 Nasal 3.0L Cannula 03/11 1410 108 18 95/65 99 Nasal 3.0L Cannula 03/11 1406 98.1 107 18 98/66 99 Nasal 3.0L Cannula 03/11 1352 106 18 95/65 99 Nasal 3.0L Cannula 03/11 1337 106 18 92/64 99 Nasal 3.0L Cannula 03/11 1322 106 18 99/63 99 Nasal 3.0L Cannula 03/11 1309 97.8 110 20 98/63 03/11 1307 107 18 98/59 98 Nasal 3.0L Cannula 03/11 1258 111 18 98/63 99 Nasal 3.0L Cannula 03/11 1252 109 18 97/63 99 Nasal 3.0L Cannula 03/11 1241 97.8 110 20 98/63 97 03/11 1207 109 18 102/71 98 Nasal 3.0L Cannula 03/11 1152 107 18 102/70 98 Nasal 3.0L Cannula 03/11 1137 107 18 99/63 99 Nasal 3.0L Cannula 03/11 1122 116 18 106/68 98 Nasal 3.0L Cannula 03/11 1115 114 18 97/62 99 Nasal 3.0L Cannula 03/11 1106 97.9 99 18 100/60 99 Nasal 3.0L Cannula 03/11 1100 98.1 110 18 98/56 98 Nasal 3.0L Cannula 03/11 1030 112 18 96/58 97 Nasal 3.0L Cannula Intake & Output 03/12 1600 03/12 0800 03/12 0000 03/11 1600 03/11 0800 03/11 0000 Intake Total 992.9 83.4 350 Output Total 330 670 Balance 662.9 -586.6 350 Intake, Blood 350 350 Product Intake, IV 642.9 83.4 Intake, Oral 0 Number 2 0 Bowel Movements Output, Urine 330 670 Patient 201 lb 201 lb Weight Weight Reported by Patient Measurement Method Physical Exam: General: WD/overweight male in NAD; not answering questions this morning Neck: +ve JVD Heart: tachycardic and regular lungs: clear bilaterally Extremities: 3+ lower extremity edema and 3+ right arm edema with 2+ left arm edema Assessment/Plan Assessment/Plan * This patient has a low BP at his baseline along with tachycardia. 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 His recent blood loss is also contributing to hypotension. As such, it is possible that this patient does not have septic shock. He is doing better following his blood transfusion. It appears that he is not willing to have an endoscopy and truthfully has been refusing most care; especially physical examination. This patient need to maintain adequate filling pressures and will not tolerate overdiuresis very well. Although, I do think he is fluid overloaded I do not think we can begin diuresis until his blood pressure stabilizes. Hold his calcium gladys and Metoprolol for now. T4 is a bit low. Continue antibiotic therapy for now. * This patient has a decreased EF compared with a prior echo. 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 Myocardial ischemia cannot be excluded. In consideration of his borderline BP I would not add a beta gladys at this time. Anemia is also a likely contributor to his tachycardia. In consideration of the patient's prior history of PE and his hemodynamic status this patient may have had a PE but he is not a candidate for anticoagulation at this point in time. * Consider a right upper extremity ultrasound to evaluate for a DVT. Continue telemetry? Yes
--- NOTE | 2017-03-12 14:21 | PN- Resident CRCU ---
Subjective HPI/CRCU Issues: Until this morning patient was refusing all procedures, imaging and even physical exam. He wanted to talk to psychiatrist. Family was at bedside. Goals of care for discussed with the patient and family. After pt talked to psychiatrist, I went into his room. He told me that he is okay with endoscopy and does not want to . Per psych patient has capacity to make his own decisions. Objective Vital Signs & I&O Last 8 Hrs of Vitals and I&O: Intake & Output 03/12 1600 Intake Total Output Total Balance Patient 229 lb Weight Weight Bed scale Measurement Method TEMP 98 HR 114-100 RR 20-18 BP 110-95/70-66 pulse ox 99 Exam General Appearance: alert, awake, anxious, depressed Extremities: swollen all 4 ext Other Physical Findings: pt refused PE IV Drips IV Drips: Levophed Current Medications: Current Medications Sig/Ghulam Start time Last Medication Dose Route Stop Time Status Admin Albuterol Sulfate 3 ML Q4P PRN 03/12 1115 AC INH Albuterol Sulfate 3 ML Q6H PRN 03/11 0930 AC INH Alprazolam 0.25 MG BID PRN 03/11 0930 AC PO 03/18 0929 Ceftazidime 1,000 MG IQ8 03/11 1600 AC 03/12 IV 0830 Ceftazidime 0 .STK-MED ONE 03/11 1559 DC .ROUTE Levetiracetam 1,000 MG Q12 03/11 2252 AC 03/12 N/A 1 UNIT IV 1000 Levetiracetam 1,000 MG BID 03/11 1000 DC 03/11 PO 1100 Lorazepam 0.5 MG BID PRN 03/12 1330 AC PO 03/19 1329 Ondansetron HCl 4 MG Q6P PRN 03/11 0930 AC IV Oxybutynin Chloride 5 MG DAILY 03/11 1000 DC 03/11 PO 1100 Pantoprazole Sodium 40 MG .STK-MED ONE 03/12 0000 DC IV 03/12 0001 Pantoprazole Sodium 0 .STK-MED ONE 03/11 2006 DC IV Pantoprazole Sodium 40 MG Q5H 03/11 0930 AC 03/12 Sodium Chloride 100 ML IV 1029 Phenytoin 200 MG BID 03/11 2253 AC 03/12 Sodium Chloride 50 ML IV 1028 Phenytoin 200 MG BID 03/11 1000 DC 03/11 PO 1100 Sertraline HCl 100 MG QPM 03/11 2200 AC PO Trazodone HCl 50 MG AT BEDTIME 03/11 2200 AC PO Vancomycin HCl 1,500 MG 0430,1630 03/11 1630 DC 03/12 Sodium Chloride 250 ML IV 0355 Impression/Plan Impression/Problem List Impression: Mr. 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 PROBLEM LIST 1. Severe sepsis secondary to intra-abdominal pathology. Blood cultures positive for gram-negative rods. ? colo-vesical fistula. stool coming in urine. Other sources could be UTI in the setting of chronic indwelling Sanchez catheter or ch. PICC. On ceftaz and levophed for BP management. 2. Acute blood loss anemia most likely secondary to upper GI bleed status post 3 units of blood transfusion 3. H/O Paroxysmal SVT and multifocal atrial tachycardia 4. 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 5. Malnutrition. Currently on TPN via PICC PLAN * Close ICU monitoring * Titrate Levophed to MAP > 65 mmHg * Monitor CBC every 6-8 hours * Patient is willing to get all care and related procedures if needed * Psych consult appreciated. Patient requested to see psych this morning * Continue ceftaz for now * Wait for final blood cultures * GI notified for possible upper GI endoscopy. Will follow their recommendations * CT abd/pevis with contrast if pt agrees * ? Surgery consult * ? Urology consult * Clear liq diet for now * Continue other home medications * GI and DVT prophylaxis * DNR/DNI Problem List: 1. Sepsis Pain Ratin Tomorrow's Labs & Rationales: [email or web address] Plan DVT/Prophylaxis: mechanical
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
--- NOTE | 2017-03-12 15:12 | ULTRASOUND REPORT ---
EXAMINATION: US TRIPLEX LOWER EXTREMITY, RIGHT CLINICAL INFORMATION: Right lower extremity pain, swelling and edema. COMPARISON: None relevant. TECHNIQUE: Color-flow triplex imaging with spectral analysis and compression Doppler were performed on the lower extremity. FINDINGS: Right upper extremity PICC line noted. The right internal jugular vein is obscured by dressing material. The right subclavian, axillary, brachial, basilic and cephalic veins show normal Doppler flow and compressibility. No deep venous thrombosis is seen. IMPRESSION: Normal triplex scan without evidence of deep venous thrombosis involving the right upper extremity.
[2017-03-12 16:00] VITALS: BP 110/60
--- NOTE | 2017-03-12 16:35 | Proc Note Endoscopy ---
Endoscopy Procedure Medical History: unchanged Mental Status: alert/oriented Heart/Lung Eval Prior to Sedation: within normal limits (hx MAT) Candidate for Sedation? Yes Procedure Date: 03/12/17 Procedure Type: EGD [facility] Specialist: CHRISTOPHER PONCE MD ASA Classification: IV (IV-E) Indications: INDX: (*Please refer to Dr. Patel's GI consult of 03/11/17). 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 The patient initially refused all investigative procedures, including CT & EGD. There was no hematemesis. He was put on Protonix drip. He was given broad-spectrum antibiotics, currently on IV Fortaz. He was found to have gram-negative bacteremia. His exam was suggestive of a colovesical fistula, with stool in his urine. Within the past hour or so, the patient agreed to EGD. Instrument: diagnostic gastroscope Meds Received: MAC Patient's Tolerance: good Complications: none Extent Reached: D3 Procedure: Upper endoscopy to the third portion of the duodenum, was performed with the Olympus high definition videoendoscope, after obtaining informed consent from the patient, with the electronic device monitor and pulse oximeter, with the assistance of Dr. Haynes, of [facility]. A mouthpiece was placed in the usual fashion to protect the patient's teeth. The patient was placed in the left lateral decubitus position and sedated by [facility]. At this point , the endoscope was advanced from the mouth into the esophagus, using direct visualization technique. I did not get a good look at the vocal cords. There was suggestion of some cricopharyngeal hypertrophy, but no definite upper esophageal web was seen. The proximal esophageal mucosa appeared normal. There were no esophageal lesions, strictures, or ulcers. There was no monilia or vesicles. There was no esophageal ribbing. The Z line was well demarcated at 35 cm, with an incidental widely patent lower esophageal ring at the Z line, which was left intact. There was a 5 cm hiatal hernia pouch, from 35-40 cm, which appeared to have mixed sliding & paraesophageal components. There were no Willam erosions. No significant esophageal inflammation was seen. There were no ectopic islands, nor gross Fajardo's esophagus. There were no esophageal or gastric varices, nor any Luci Carlson tear. The mccoy of the stomach distended normally with air insufflation. Direct and retroflexed views of the stomach were performed. There was nothing endoscopically to suggest gastroparesis or portal gastropathy. The mucosa of the gastric cardia, fundus, lesser curvature, incisura, body, and antrum appeared normal, without any gastric ulcers or gastric lesions, aside from a few 2 mm sessile gastric polyps at the lesser curvature, which were left intact. The pylorus was patent, without any gastric outlet obstruction or channel ulcer. The duodenal bulb was normal, except for suggestion of some mild Robbi's gland hypertrophy vs. gastric metaplasia, which was left intact. The duodenal sweep & third portion of the duodenum appeared normal, without any duodenal ulcers, distal ulcerations, or angiodysplasias. I was not able to see the ampulla with the direct- viewing scope. The folds of the second & third portions of the duodenum were normal in caliber, without any flattening, nodularity, scalloping, or mosaic pattern. Bile was seen in the second & third portions of the duodenum, without any blood. No active upper GI bleeding was seen. The patient tolerated the procedure well. Impression: 1. 5 cm mixed sliding & paraesophageal hiatal hernia, from 35-40 cm, without any Willam erosions. 2. Incidental, patent lower esophageal ring at the Z line at 35 cm, left intact. 3. Few scant 2 mm sessile gastric polyps at lesser curvature, left intact. 4. Probable Robbi gland hypertrophy vs. gastric metaplasia in duodenal bulb, left intact. 5. Otherwise, negative EGD to the third portion of the duodenum. No active upper GI bleeding seen. Recommendations: May resume DVT prophylaxis with Lovenox from a GI perspective. *Goals of care need to be addressed, in view of large inoperable pelvic tumor invading the urinary bladder, with clinical suggestion of colovesical fistula, which is probably the cause for the patient's gram-negative bacteremia. Continue broad- spectrum antibiotics. May discontinue IV Protonix drip. Protonix 40 mg IV daily for stress ulcer prophylaxis. May advance diet as tolerated, with aspiration precautions, as patient's level of alertness allows. CTE & possible cystoscopy as patient allows, with consideration for surgical, urologic, & oncologic input, but the patient appears to have overwhelming inoperable disease. Further GI input as needed. The above findings and recommendations were discussed with Dr. Villar, Dr. Patel, & the medical ICU housestaff postoperatively. CC: TAIWO SOSA,JUANY Butler; AURELIO SOSA,[facility] Rei; COLLEEN SOSA,[facility]FI[facility] NYACK HOSPITALKatrin PATEL MD,LORENZOKatrin OSPINA MD,ONEYDA Karla VARELA MD PhD,ANN Rei; MIESHA SOSA,REYES
--- NOTE | 2017-03-12 17:32 | Event Note ---
Event Note Event Note: I received a call from Dr. burton, urologist. Discussed with him about his medical history, current condition and ongoing issues. According to him there is no urologic intervention for him and surgery should be on board. He would let Dr. Garvey know as he saw him in november this year.
[2017-03-12 17:44] LABS: ABSOLUTE BASOPHIL COUNT 0 /CUMM (0.0-0.2); ABSOLUTE EOSINOPHIL COUNT 0 /CUMM (0.0-0.7); ABSOLUTE GRANULOCYTE CT 9.3 /CUMM (1.4-6.5); ABSOLUTE MONOCYTE COUNT 0.7 /CUMM (0.10-0.60); BASOPHIL % 0.1 % (0.0-2.0); EOSINOPHIL % 0.2 % (0-5); MEAN CORPUSCULAR HGB 28.7 PG (27.0-31.0); MEAN CORPUSCULAR VOLUME 89.8 FL (80.0-94.0); PLATELET COUNT 264 /CUMM (130-400); RBC DISTRIBUTION WIDTH 18.2 % (11.5-14.5); RED BLOOD CELL CT 3.01 /CUMM (4.70-6.10)
[2017-03-12 17:47] LABS: GRANULOCYTE % 84.5 % (42.2-75.2)
[2017-03-12 17:54] LABS: PT 12.9 SEC (9.4-12.5)
[2017-03-12 23:03] LABS: ABSOLUTE BASOPHIL COUNT 0 /CUMM (0.0-0.2); ABSOLUTE EOSINOPHIL COUNT 0 /CUMM (0.0-0.7); ABSOLUTE GRANULOCYTE CT 14.5 /CUMM (1.4-6.5); ABSOLUTE LYMPH COUNT 0.7 /CUMM (1.2-3.4); ABSOLUTE MONOCYTE COUNT 0.2 /CUMM (0.10-0.60); BASOPHIL % 0.1 % (0.0-2.0); EOSINOPHIL % 0.1 % (0-5); HEMATOCRIT 28.5 % (42-52); MEAN CORPUSCULAR HGB CONC 32.5 G/DL (33.0-37.0); MEAN CORPUSCULAR VOLUME 89.2 FL (80.0-94.0); MEAN PLATELET VOLUME 8.8 FL (7.4-10.4); PLATELET COUNT 258 /CUMM (130-400); RBC DISTRIBUTION WIDTH 17.5 % (11.5-14.5); WHITE BLOOD CELL COUNT 15.4 /CUMM (4.8-10.8)
--- NOTE | 2017-03-12 23:09 | NUR ---
FROM 1900-PT A/OX2, SLIGHTLY DISORIENTED TO TIME, BUT REORIENTS EASILY. FOLLOWS COMMANDS. C/O BACK PAIN AND PENILE BURNING-SEE EMAR FOR PAIN ADMINISTRATION-MORPHINE 2MG IV GIVEN WITH GOOD EFFECT. BREATH SOUNDS CLEAR WITH DIMINISHED BREATH SOUNDS AT BASES BILATERALLY. 02 WEENED DOWN FROM 4L TO 2LNC. PT SOBOE, NO COUGH NOTED AT PRESENT. SEE FLOW SHEET FOR VS, 02 SATS, I/O'S. MONITOR SHOWS ST WITH OCC PVC'S NOTED AT PRESENT. BP 90-100'S AT PRESENT. ON LEVOPHED GTT AT 2MCG/MIN-SEE FREQUENT VS SHEET FOR TITRATION. 3-4+ PITTING GENERALIZED EDEMA NOTED. ABD FIRM, TENDER, POSITIVE BOWEL SOUNDS. ACE IN PLACE-DRAINING BROWN URINE-APPEARS TO BE STOOL-MELENA IN NATURE, LEAKING AROUND ACE-DR. GANDHI AWARE. ACE IRRIGATED. NO BM'S NOTED SO FAR THIS SHIFT. SKIN INTACT-PT HAS 1 RED SPOT ON MID SPINE-BLANCHABLE. PT WENT FOR CT OF ABD VIA STRETCHER AT 2029-EKG MONITORING-RETURNED AT 2114-PT'S HR WENT FROM 110'S UP TO THE 130'S DURING PROCEDURE, REMAINED ELEVATED AFTER RETURN AND MORPHINE DOSE-DR. GANDHI AWARE.
--- NOTE | 2017-03-12 23:27 | CT SCAN REPORT ---
EXAMINATION: CT ABDOMEN AND PELVIS WITH CONTRAST CLINICAL INFORMATION: Abdominal pain. Stool in urine. COMPARISON: Multiple prior studies, most recently 02/17/2017 TECHNIQUE: Multidetector volumetric imaging was performed of the abdomen and pelvis before and after the IV administration of 94 mL of Optiray 320 intravenous contrast. Sagittal and coronal reformatted images were obtained on the technologist's workstation. DLP: 884 mGy-cm FINDINGS: LUNG BASES: There are moderate bilateral pleural effusions with compressive atelectasis of the lower lobes. These are similar to mildly increased from prior. Coronary artery calcifications noted. LIVER, GALLBLADDER, AND BILIARY TREE: The liver is normal in size, shape, and attenuation. No focal hepatic lesion or biliary ductal dilatation is present. The gallbladder is unremarkable with no evidence of radiopaque gallstones, gallbladder wall thickening, or obvious pericholecystic inflammatory changes. The gallbladder extends to the periphery of the right lobe of the liver. PANCREAS: Unremarkable. SPLEEN: Unremarkable. ADRENAL GLANDS: Right adrenal 1.6 cm nodule is unchanged. Left adrenal 1.6 cm nodule is unchanged. KIDNEYS AND URETERS: The kidneys are symmetric in size with symmetric nephrograms. Mild fullness of the left collecting system is noted. This appears somewhat improved from previous. BLADDER: The bladder is decompressed with a Sanchez catheter in place. This limits evaluation for fistulization. The enteric contrast within the bowel extends to the rectum. There is the appearance of extension of enteric contrast into the central pelvic mass. GASTROINTESTINAL TRACT: Moderate hiatal hernia. The small bowel is nonobstructed. Contrast extends throughout the colon. As mentioned above, it appears that there is contrast extending from the region of the sigmoid colon into the central pelvic mass. The mass is significantly heterogeneous with multiloculated fluid components and air-fluid levels. The degree of gas within the mass appears to have increased from prior. The mass currently measures 17.6 cm transverse by 16.9 cm AP by 16.3 cm CC. The overall size is fairly similar to priors. It is conceivable that there is fistulization through the mass from the colon to the bladder resulting in stool within the urine, although this is not well demonstrated. Additional areas of high attenuation are seen in the right superior posterior aspect of the mass which is new from previous. ABDOMINAL WALL: Extensive anasarca. No hernia seen. LYMPH NODES: Normal. VASCULAR: Unremarkable. PELVIC VISCERA: The prostate is not well evaluated due to the prominent pelvic mass. OSSEOUS STRUCTURES: Degenerative changes of the spine with mild compression deformity at L4, similar to prior. IMPRESSION: Prominent central pelvic mass is again demonstrated. There is internal high attenuation within the cystic components which is new from prior study and likely associated with fistulization with the bowel, as enteric contrast was utilized for this study. The mass also abuts the bladder which is decompressed. It is conceivable that there is additional fistulization with the bladder resulting in stool within the urine, although this is not fully demonstrated. Bilateral adrenal gland nodules again noted. No bowel obstruction.
[2017-03-13] VITALS: BP 108/64
--- NOTE | 2017-03-13 01:17 | NUR ---
PT WITH LOW URINE OUTPUT-ACE IRRIGATED WITHOUT DIFFICULTY-REPORTED TO [facility]-NO ORDERS GIVEN AT PRESENT-WILL MONITOR
--- NOTE | 2017-03-13 02:40 | NUR ---
BP DOWN TO 80'S-TITRATING LEVOPHED UP-CURRENTLY AT 8MCG/MIN-SEE FREQUENT VS SHEET. WILL MONITOR
[2017-03-13 04:55] LABS: ABSOLUTE BASOPHIL COUNT 0 /CUMM (0.0-0.2); ABSOLUTE EOSINOPHIL COUNT 0 /CUMM (0.0-0.7); ABSOLUTE GRANULOCYTE CT 15.2 /CUMM (1.4-6.5); ABSOLUTE LYMPH COUNT 0.9 /CUMM (1.2-3.4); ABSOLUTE MONOCYTE COUNT 0.5 /CUMM (0.10-0.60); BASOPHIL % 0 % (0.0-2.0); EOSINOPHIL % 0.1 % (0-5); GRANULOCYTE % 91.3 % (42.2-75.2); HEMATOCRIT 28.4 % (42-52); MEAN CORPUSCULAR HGB 28.9 PG (27.0-31.0); MEAN CORPUSCULAR HGB CONC 32.3 G/DL (33.0-37.0); MEAN CORPUSCULAR VOLUME 89.6 FL (80.0-94.0); MEAN PLATELET VOLUME 8.3 FL (7.4-10.4); PLATELET COUNT 268 /CUMM (130-400); RBC DISTRIBUTION WIDTH 17.7 % (11.5-14.5); RED BLOOD CELL CT 3.17 /CUMM (4.70-6.10); WHITE BLOOD CELL COUNT 16.6 /CUMM (4.8-10.8)
--- NOTE | 2017-03-13 07:03 | NUR ---
PT SLEPT MOST OF SHIFT. DENIES ANY PAIN SINCE MORPHINE DOSE. 02 TITRATED DOWN TO 2LNC-02 SATS 94-97% FOR SHIFT. MONITOR ST 110-140'S FOR SHIFT, OCC TO FREQUENT PVC'S. LEVOPHED CURRENTLY INFUSING AT 8MCG/MIN, SBP 90-100'S. MINIMAL URINE OUTPUT FOR SHIFT-STOOL REMAINS IN ACE-ACE IRRIGATED WITHOUT DIFFICULTY X3 FOR SHIFT-DRAINING BROWN FECAL SMELLING DRAINAGE. LOW URINE OUTPUT AGAIN REPORTED TO DR. JAIMES AT 75ML/HR FOR 500ML UP ORDERED-WILL MONITOR. CONTINUES WITH 3-4+ GENERALIZED PITTING EDEMA. RED SPOT MID SPINE-BLANCHABLE. PT HAD ONE LOOSE MELENA STOOL OVERNIGHT. NO N/V. ABD REMAINS SOFT, TENDER TO TOUCH, DISTENDED
[2017-03-13 08:00] VITALS: BP 120/70
--- NOTE | 2017-03-13 10:17 | PN- Resident CRCU ---
Impression/Plan Plan DVT/Prophylaxis: mechanical
--- NOTE | 2017-03-13 11:30 | PN- Pulmonary ---
Subjective HPI/Critical Care Issues: Events and data reviewed Doing well Stable Afebrile On 2 L nasal cannula Continue to requires he will fed support Objective Current Medications: Current Medications Sig/Ghulam Start time Last Medication Dose Route Stop Time Status Admin Acetaminophen 650 MG Q6P PRN 03/12 1630 AC PO Albuterol Sulfate 3 ML Q4P PRN 03/12 1115 AC INH Albuterol Sulfate 3 ML Q6H PRN 03/11 0930 AC INH Alprazolam 0.25 MG BID PRN 03/11 0930 AC PO 03/18 0929 Alteplase, 2 MG ONE ONE 03/12 1600 DC 03/12 Recombinant IV 03/12 1601 1807 Ceftazidime 1,000 MG IQ8 03/11 1600 AC 03/13 IV 1025 Enoxaparin Sodium 100 MG Q12H 03/12 1900 AC 03/13 SC 1025 Heparin Sodium 500 UNIT .STK-MED ONE 03/12 1606 DC (Porcine) IV 03/12 1607 Ketamine HCl 50 MG .STK-MED ONE 03/12 1455 DC IM 03/12 1456 Levetiracetam 1,000 MG Q12 03/11 2252 AC 03/13 N/A 1 UNIT IV 1031 Lidocaine 5 FAROOQ .STK-MED ONE 03/12 1651 DC TOP 03/12 1652 Lorazepam 0.5 MG BID PRN 03/12 1330 AC 03/13 PO 03/19 1329 1031 Magnesium Oxide 400 MG ONE ONE 03/13 0600 DC PO 03/13 0601 Magnesium Sulfate 1 GM Q2H 03/13 1030 AC Dextrose/Water 100 ML IV 03/13 1429 Midazolam HCl 4 MG .STK-MED ONE 03/12 1455 DC IM 03/12 1456 Morphine Sulfate 2 MG Q6P PRN 03/12 1630 AC 03/12 IV 2142 Norepinephrine 4 MG Q8H 03/13 1000 AC 03/13 Sodium Chloride 250 ML IV 1043 Norepinephrine 4 MG ONCE ONE 03/12 2145 DC 03/13 Sodium Chloride 250 ML IV 03/12 2146 0014 Omeprazole 40 MG DAILY AC 03/13 0700 AC 03/13 PO 1025 Ondansetron HCl 4 MG Q6P PRN 03/11 0930 AC IV Oxybutynin Chloride 5 MG DAILY 03/11 1000 DC 03/11 PO 1100 Pantoprazole Sodium 40 MG Q5H 07/13 0930 DC 03/12 Sodium Chloride 100 ML IV 1029 Phenytoin 200 MG BID 03/11 2253 AC 03/13 Sodium Chloride 50 ML IV 1030 Potassium Chloride 40 MEQ ONCE ONE 03/13 0600 DC 03/13 PO 03/13 0601 1024 Sertraline HCl 150 MG QPM 03/12 2200 AC 03/12 PO 2223 Sertraline HCl 100 MG QPM 03/11 2200 DC PO Sodium Chloride 500 ML BOLUS ONE 03/13 0545 AC 03/13 IV 03/13 1224 0623 Trazodone HCl 50 MG AT BEDTIME 03/11 220 AC 03/12 PO 2224 Vancomycin HCl 1,500 MG 0430,1630 03/11 1630 DC 03/12 Sodium Chloride 250 ML IV 0355 Vital Signs & I&O Last 24 Hrs of Vitals and I&O: Vital Signs Date Time Temp Pulse Resp B/P B/P Pulse O2 O2 Flow FiO2 Mean Ox Delivery Rate 03/13 1043 120 96/53 03/13 0400 96 Nasal 2.0L Cannula 03/13 0014 126 35 92/57 03/13 0000 95 Nasal 2.0L Cannula 03/13 0000 98.9 127 36 108/64 95 Nasal 2.0L Cannula 03/12 2000 98 Nasal 4.0L Cannula 03/12 1600 98.4 110 18 110/60 98 Nasal 4.0L Cannula 03/12 1600 98 Nasal 4.0L Cannula 03/12 1200 96 Nasal 3.0L Cannula Intake & Output 03/13 1600 03/13 0800 03/13 0000 Intake Total 687 939 Output Total 145 640 Balance 542 299 Intake, IV 147 339 Intake, Oral 260 480 Intake, Other 280 120 Number 1 0 Bowel Movements Output, Urine 145 640 Patient 229 lb Weight Laboratory Tests 03/13 03/12 0440 2223 Chemistry Sodium (137 - 145 mmol/L) 144 Potassium (3.5 - 5.1 mmol/L) 3.6 Chloride (98 - 107 mmol/L) 109 H Carbon Dioxide (22 - 30 mmol/L) 25 Anion Gap (5 - 16) 9 BUN (9 - 20 mg/dL) 39 H Creatinine (0.7 - 1.2 mg/dL) 0.7 Estimated GFR (>60 ml/min) > 60 Glucose (65 - 99 mg/dL) 87 Calcium (8.4 - 10.2 mg/dL) 7.9 L Phosphorus (2.5 - 4.5 mg/dL) 4.0 Magnesium (1.6 - 2.3 mg/dL) 1.8 Total Bilirubin (0.2 - 1.3 mg/dL) 0.3 AST (17 - 59 U/L) 21 ALT (21 - 72 U/L) 39 Albumin (3.5 - 5.0 g/dL) 1.8 L Hematology CBC w Diff MAN DIFF ORDERED NO MAN DIFF REQ WBC (4.8 - 10.8 /CUMM) 16.6 H 15.4 H RBC (4.70 - 6.10 /CUMM) 3.17 L 3.20 L Hgb (14.0 - 18.0 G/DL) 9.2 L 9.3 L Hct (42 - 52 %) 28.4 L 28.5 L MCV (80.0 - 94.0 FL) 89.6 89.2 MCH (27.0 - 31.0 PG) 28.9 29.0 RDW (11.5 - 14.5 %) 17.7 H 17.5 H Plt Count (130 - 400 /CUMM) 268 258 MPV (7.4 - 10.4 FL) 8.3 8.8 Gran % (42.2 - 75.2 %) 91.3 H 94.0 H Lymphocytes % (20.5 - 51.1 %) 5.6 L 4.4 L Monocytes % (1.7 - 9.3 %) 3.0 1.4 L Eosinophils % (0 - 5 %) 0.1 0.1 Basophils % (0.0 - 2.0 %) 0 L 0.1 Absolute Granulocytes (1.4 - 6.5 /CUMM) 15.2 H 14.5 H Segmented Neutrophils (42.2 - 75.2 %) 74 Band Neutrophils (0.0 - 5.0 %) 19 H Absolute Lymphocytes (1.2 - 3.4 /CUMM) 0.9 L 0.7 L Lymphocytes (20.5 - 51.1 %) 6 L Monocytes (1.7 - 9.3 %) 1 L Absolute Monocytes (0.10 - 0.60 /CUMM) 0.5 0.2 Absolute Eosinophils (0.0 - 0.7 /CUMM) 0 0 Absolute Basophils (0.0 - 0.2 /CUMM) 0 0 Platelet Estimate (ADEQUATE) ADEQUATE PUBS MCHC (33.0 - 37.0 G/DL) 32.3 L 32.5 L 03/12 03/12 1630 0354 Chemistry Sodium (137 - 145 mmol/L) 145 Potassium (3.5 - 5.1 mmol/L) 3.9 Chloride (98 - 107 mmol/L) 108 H Carbon Dioxide (22 - 30 mmol/L) 26 Anion Gap (5 - 16) 10 BUN (9 - 20 mg/dL) 41 H Creatinine (0.7 - 1.2 mg/dL) 0.7 Estimated GFR (>60 ml/min) > 60 Glucose (65 - 99 mg/dL) 66 Calcium (8.4 - 10.2 mg/dL) 7.7 L Phosphorus (2.5 - 4.5 mg/dL) 4.3 Magnesium (1.6 - 2.3 mg/dL) 1.8 Total Bilirubin (0.2 - 1.3 mg/dL) 0.3 AST (17 - 59 U/L) 33 ALT (21 - 72 U/L) 51 Albumin (3.5 - 5.0 g/dL) 1.7 L Coagulation PT (9.4 - 12.5 SEC) 12.9 H INR (0.90 - 1.17) 1.23 H Hematology CBC w Diff NO MAN DIFF REQ MAN DIFF ORDERED WBC (4.8 - 10.8 /CUMM) 11.0 H 12.6 H RBC (4.70 - 6.10 /CUMM) 3.01 L 3.00 L Hgb (14.0 - 18.0 G/DL) 8.6 L 8.7 L Hct (42 - 52 %) 27.0 L 26.8 L MCV (80.0 - 94.0 FL) 89.8 89.4 MCH (27.0 - 31.0 PG) 28.7 29.0 RDW (11.5 - 14.5 %) 18.2 H 17.6 H Plt Count (130 - 400 /CUMM) 264 257 MPV (7.4 - 10.4 FL) 9.0 9.3 Gran % (42.2 - 75.2 %) 84.5 H 84.9 H Lymphocytes % (20.5 - 51.1 %) 9.3 L 7.1 L Monocytes % (1.7 - 9.3 %) 5.9 7.8 Eosinophils % (0 - 5 %) 0.2 0.1 Basophils % (0.0 - 2.0 %) 0.1 0.1 Absolute Granulocytes (1.4 - 6.5 /CUMM) 9.3 H 10.7 H Segmented Neutrophils (42.2 - 75.2 %) 83 H Band Neutrophils (0.0 - 5.0 %) 4 Absolute Lymphocytes (1.2 - 3.4 /CUMM) 1.0 L 0.9 L Lymphocytes (20.5 - 51.1 %) 7 L Monocytes (1.7 - 9.3 %) 6 Absolute Monocytes (0.10 - 0.60 /CUMM) 0.7 H 1.0 H Absolute Eosinophils (0.0 - 0.7 /CUMM) 0 0 Absolute Basophils (0.0 - 0.2 /CUMM) 0 0 Platelet Estimate (ADEQUATE) ADEQUATE Polychromasia 1+ Hypochromic-Microcytic 1+ Poikilocytosis 1+ Basophilic Stippling SLIGHT Ovalocytes FEW Stomatocytes 1+ PUBS MCHC (33.0 - 37.0 G/DL) 32.0 L 32.4 L Other Body Source Fld Total RBCs Counted (%) 100 03/11 Chemistry Troponin I (<0.11 ng/ml) 0.01 TSH (0.270 - 4.200 uIU/mL) 2.940 Free T4 (0.78 - 2.44 ng/dL) 1.05 Thyroxine (T4) (4.5 - 10.9 ug/dL) 3.4 L Hematology CBC w Diff NO MAN DIFF REQ WBC (4.8 - 10.8 /CUMM) 11.3 H RBC (4.70 - 6.10 /CUMM) 2.51 L Hgb (14.0 - 18.0 G/DL) 7.1 *L Hct (42 - 52 %) 22.2 L MCV (80.0 - 94.0 FL) 88.2 MCH (27.0 - 31.0 PG) 28.1 RDW (11.5 - 14.5 %) 18.4 H Plt Count (130 - 400 /CUMM) 281 MPV (7.4 - 10.4 FL) 8.3 Gran % (42.2 - 75.2 %) 85.0 H Lymphocytes % (20.5 - 51.1 %) 8.0 L Monocytes % (1.7 - 9.3 %) 4.5 Eosinophils % (0 - 5 %) 0.1 Basophils % (0.0 - 2.0 %) 2.4 H Absolute Granulocytes (1.4 - 6.5 /CUMM) 9.6 H Absolute Lymphocytes (1.2 - 3.4 /CUMM) 0.9 L Absolute Monocytes (0.10 - 0.60 /CUMM) 0.5 Absolute Eosinophils (0.0 - 0.7 /CUMM) 0 Absolute Basophils (0.0 - 0.2 /CUMM) 0.3 PUBS MCHC (33.0 - 37.0 G/DL) 31.9 L Toxicology Phenytoin (10.0 - 20.0 ug/mL) 3.7 L 03/11 03/11 1420 1200 Chemistry Troponin I Cancelled Hematology CBC w Diff NO MAN DIFF REQ WBC (4.8 - 10.8 /CUMM) 10.8 RBC (4.70 - 6.10 /CUMM) 2.70 L Hgb (14.0 - 18.0 G/DL) 7.6 L Hct (42 - 52 %) 23.5 L MCV (80.0 - 94.0 FL) 87.3 MCH (27.0 - 31.0 PG) 28.1 RDW (11.5 - 14.5 %) 17.8 H Plt Count (130 - 400 /CUMM) 296 MPV (7.4 - 10.4 FL) 8.5 Gran % (42.2 - 75.2 %) 84.3 H Lymphocytes % (20.5 - 51.1 %) 9.3 L Monocytes % (1.7 - 9.3 %) 6.0 Eosinophils % (0 - 5 %) 0.2 Basophils % (0.0 - 2.0 %) 0.2 Absolute Granulocytes (1.4 - 6.5 /CUMM) 9.1 H Absolute Lymphocytes (1.2 - 3.4 /CUMM) 1.0 L Absolute Monocytes (0.10 - 0.60 /CUMM) 0.6 Absolute Eosinophils (0.0 - 0.7 /CUMM) 0 Absolute Basophils (0.0 - 0.2 /CUMM) 0 PUBS MCHC (33.0 - 37.0 G/DL) 32.2 L Microbiology Date/Time Procedure - Status Source Growth 03/13 1026 Blood Culture - COLB BLOOD 03/12 1520 Urine Culture - RECD URINE ROUT 03/115 Surveillance Culture - COMP UPPER RESP 03/11 2145 Surveillance Culture - COMP GI 03/11 0410 Urine Culture - COMP URINE ROUT 03/11 0257 Blood Culture - COMP BLOOD ESCHERICHIA COLI 03/10 2320 Blood Culture - CAN BLOOD Cancelled: Quantity not sufficient for both blood culture bottles. Impression/Plan Impression/Plan Impression/Plan: Mr. 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 His issues include Septic shock gram-negative most likely etiology is tumor necrosis with infection , no clinical evidence of fistula between bowel and bladder Gram-negative sepsis, now requiring vasopressors Significantly enlarging pelvic mass, low grade mucinous neoplasm would require extensive surgery in the future when patient is clinically stable GI bleed, upon admission status post upper endoscopy with no obvious source of significant bleeding Poor performance status Severe malnutrition with bilateral effusions RECOMMENDATION Continue vasopressors Taper norepinephrine If blood pressure tolerates could give him 1 dose of Lasix Does not wish any further imaging Does not wish any further aggressive therapy, but wishes to continue present management Wean off vasopressors if able Can change antibiotic to Unasyn for now Patient can be transferred to the floor if he comes off vasopressors . Patient wishes to be DNR/DNI Patient is critically ill total time spent 36 minutes
[2017-03-13 16:00] VITALS: BP 86/56
--- NOTE | 2017-03-13 17:37 | PN- CRCU ---
Subjective HPI/Critical Care Issues: I saw the pt today at bedside,conscious, oriented.no active complaints. vitals stable. There was a drop in blood pressure over night and hence levophed dose was increased. Objective Current Medications: Current Medications Sig/Ghulam Start time Last Medication Dose Route Stop Time Status Admin Acetaminophen 650 MG Q6P PRN 03/12 1630 AC PO Albuterol Sulfate 3 ML Q4P PRN 03/12 1115 AC INH Albuterol Sulfate 3 ML Q6H PRN 03/11 0930 AC INH Alprazolam 0.25 MG BID PRN 03/11 0930 AC PO 03/18 0929 Ampicillin Sodium/ 1,500 MG Q6 03/13 1200 AC 03/13 Sulbactam Sodium IV 1437 Sodium Chloride 100 ML Ceftazidime 1,000 MG IQ8 03/11 1600 DC 03/13 IV 1025 Enoxaparin Sodium 100 MG Q12H 03/12 1900 AC 03/13 SC 1025 Levetiracetam 1,000 MG Q12 03/11 2252 AC 03/13 N/A 1 UNIT IV 1031 Lorazepam 0.5 MG BID PRN 03/12 1330 AC 03/13 PO 03/19 1329 1031 Magnesium Oxide 400 MG ONE ONE 03/13 0600 DC PO 03/13 0601 Magnesium Sulfate 1 GM Q2H 03/13 1030 DC 03/13 Dextrose/Water 100 ML IV 03/13 1429 1200 Morphine Sulfate 2 MG Q6P PRN 03/12 1630 AC 03/12 IV 2142 Norepinephrine 4 MG Q8H 03/13 1000 AC 03/13 Sodium Chloride 250 ML IV 1043 Norepinephrine 4 MG ONCE ONE 03/12 2145 DC 03/13 Sodium Chloride 250 ML IV 03/12 2146 0014 Omeprazole 40 MG DAILY AC 03/13 0700 AC 03/13 PO 1025 Ondansetron HCl 4 MG Q6P PRN 03/11 0930 AC IV Phenytoin 200 MG BID 03/11 2253 AC 03/13 Sodium Chloride 50 ML IV 1030 Potassium Chloride 40 MEQ ONCE ONE 03/13 0600 DC 03/13 PO 03/13 0601 1024 Sertraline HCl 150 MG QPM 03/12 2200 AC 03/12 PO 2223 Sodium Chloride 500 ML BOLUS ONE 03/13 0545 DC 03/13 IV 03/13 1224 0623 Trazodone HCl 50 MG AT BEDTIME 03/11 2200 AC 03/12 PO 2224 Vital Signs & I&O Last 24 Hrs of Vitals and I&O: Vital Signs Date Time Temp Pulse Resp B/P B/P Pulse O2 O2 Flow FiO2 Mean Ox Delivery Rate 03/13 1254 98 Nasal 3.0L Cannula 03/13 1043 120 96/53 03/13 0400 96 Nasal 2.0L Cannula 03/13 0014 126 35 92/57 03/13 0000 95 Nasal 2.0L Cannula 03/13 0000 98.9 127 36 108/64 95 Nasal 2.0L Cannula 03/12 2000 98 Nasal 4.0L Cannula Intake & Output 03/13 1600 03/13 0800 03/13 0000 Intake Total 687 939 Output Total 145 640 Balance 542 299 Intake, IV 147 339 Intake, Oral 260 480 Intake, Other 280 120 Number 1 0 Bowel Movements Output, Urine 145 640 Patient 229 lb Weight Exam General Appearance: well developed/nourished, no apparent distress, comfortable Head: normal appearance Neck: normal inspection, supple Respiratory: normal breath sounds, chest non-tender Cardiovascular: regular rate/rhythm Abdomen: normal bowel sounds Extremities: normal inspection Neurologic/Psychiatric: alert, oriented x 3, normal gait Skin: intact, normal color Results Last 24 Hrs of Lab Results: Laboratory Tests 03/13/17 0440: Anion Gap 9, Estimated GFR > 60, Glucose 87, Calcium 7.9 L, Phosphorus 4.0, Magnesium 1.8, Total Bilirubin 0.3, AST 21, ALT 39, Albumin 1.8 L, CBC w Diff MAN DIFF ORDERED, RBC 3.17 L, MCV 89.6, MCH 28.9, RDW 17.7 H, MPV 8.3, Gran % 91.3 H, Lymphocytes % 5.6 L, Monocytes % 3.0, Eosinophils % 0.1, Basophils % 0 L, Absolute Granulocytes 15.2 H, Segmented Neutrophils 74, Band Neutrophils 19 H, Absolute Lymphocytes 0.9 L, Lymphocytes 6 L, Monocytes 1 L, Absolute Monocytes 0.5, Absolute Eosinophils 0, Absolute Basophils 0, Platelet Estimate ADEQUATE, PUBS MCHC 32.3 L 03/12/17 2223: CBC w Diff NO MAN DIFF REQ, RBC 3.20 L, MCV 89.2, MCH 29.0, RDW 17.5 H, MPV 8.8, Gran % 94.0 H, Lymphocytes % 4.4 L, Monocytes % 1.4 L, Eosinophils % 0.1 , Basophils % 0.1, Absolute Granulocytes 14.5 H, Absolute Lymphocytes 0.7 L, Absolute Monocytes 0.2, Absolute Eosinophils 0, Absolute Basophils 0, PUBS MCHC 32.5 L Diagnostic Data CXR Findings: 03/11/17 1. Moderately decreased EF of 30%. 2. Severe right ventricular enlargement with decreased contractility. 3. Mildly enlarged right atrium. 4. Trace mitral regurgitation. 5. Moderate pulmonary hypertension. Miscellaneous Findings: 03/12/17 endoscopy findings 5 cm mixed sliding & paraesophageal hiatal hernia, from 35-40 cm, without any Willam erosions. 2. Incidental, patent lower esophageal ring at the Z line at 35 cm, left intact. 3. Few scant 2 mm sessile gastric polyps at lesser curvature, left intact. 4. Probable Robbi gland hypertrophy vs. gastric metaplasia in duodenal bulb, left intact. 5. Otherwise, negative EGD to the third portion of the duodenum. No active upper GI bleeding seen. 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 PROBLEM LIST 1. Severe sepsis secondary to intra-abdominal pathology. Blood cultures positive for gram-negative rods. colo-vesical fistula. stool coming in urine. Other sources could be UTI in the setting of chronic indwelling Sanchez catheter or ch. PICC. was On ceftaz changed to unasyn. on levophed for BP management. 2. Acute blood loss anemia most likely secondary to upper GI bleed status post 3 units of blood transfusion. hb-9.2 3. H/O Paroxysmal SVT and multifocal atrial tachycardia 4. 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 5. Malnutrition. Currently on TPN via PICC PLAN * Close ICU monitoring * Titrate Levophed to MAP > 65 mmHg and taper * Monitor CBC every 6-8 hours * Patient is willing to get all care and related procedures if needed * Psych f/p * Wait for final blood cultures * GI notified for possible upper GI endoscopy. Will follow their recommendations * Clear liq diet for now * Continue other home medications * GI and DVT prophylaxis * DNR/DNI Code Status: Do Not Resucitate/Intubat Problem List: 1. Iron deficiency anemia 2. Acute blood loss anemia 3. Abdominal mass 4. Complicated urinary tract infection
--- NOTE | 2017-03-13 19:00 | NUR ---
NURSING SHIFT [id number]- PT A&OX3, REFUSED ALL 3 MEALS TODAY-STATING HE "WAS TOO TIRED TO EAT". ON 2LNC. SINUS TACHYCARDIA W/HR 100S-110S ON FREIGHT AGENT. ON LEVOPHED FOR BP CONTROL TITRATED PER ICU FLOW SHEET FROM 8MCG/MIN DOWN TO 2MCG/MIN OVER SHIFT. DIFFUSE GENERALIZED ANASARCA INCREASING THROUGHOUT SHIFT +3 TO +4. sCROTAL EDEMA INCREASING & ELEVATED FOR COMFORT. [facility] PICC PATENT & RIJ TLC INTACT & INFUSING PER EMAR. DUODERM PLACED ON COCCYX FOR REPORT OF DECREASED FEELING TO AREA & COMFORT. NO REDNESS OR OPEN AREAS NOTED. SMALL BLANCHABLE REDDENED AREA TO LEFT MID SPINE-BARRIER CREAM APPLIED. REINFORCED TURNING & POSITIONING TO PREVENT SKIN BREAKDOWN. PT CONTINUES TO HAVE DK BROWN LIQUID STOOL W/BLACK SEDIMENT DRAINING FROM ACE. IRRIGATED MIDMORNING WITHOUT DIFFICULTY OBTAINING MORE THAN OUTPUT THAN INPUT. STOOL NOTICED TO BE OOZING AROUND URINARY MEATUS & ACE CATHETER & INCREASING AT APPROX 3PM. ATTEMPTED TO IRRIGATE ACE PER ORDER W/60ML STERILE WATER. IRRIGANT FLUSHED IN WITHOUT DIFFICULTY W/20ML RETURN OF DK BROWN/BLACK LIQUID W/BLACK SEDIMENT & STOPPED. FLUSHED W/ADDITIONAL 60ML OF STERILE WATER PER DR FERREIRA AFTER ADVANCING ACE W/BALLOON INFLATED WITHOUT DIFFICULTY & OBTAINED 60ML OF ABOVE NOTED OUTPUT & PT REPORTED PAIN W/IRRIGATION & MODERATE AMOUNT OF URINE & LIQUID DK BROWN STOOL COMING FROM AROUND URINARY MEATUS & ACE AT THIS TIME BUT NOT IN ACE TUBING & CATHETER. IRRIGATION ABORTED PER DR FERREIRA & UROLOGY-DR CANTU NOTIFIED OF FINDINGS. DR CANTU RECOMMENDED BLADDER SCAN & HE WAS NOTIFIED THAT SCAN SHOWED >314ML & IDENTIFIED BLADDER. HE RECOMMENDED REOBTAINING BLADDER SCAN IN 1.5HRS REGARDLESS IF ACE DRAINS & MDS TO NOTIFY HIM OF FINDINGS. @1835-PT AGREED TO RECEIVE 2MG IV MORPHINE PER ORDER FOR DISCOMFORT & ABDOMINAL PAIN & REFUSED TO BE TURNED FOR BOWEL INCONTINENCE CARE. ATTEMPTED TO PROVIDE INCONTINENT CARE DURING BEDSIDE REPORT W/ONCOMING NURSE SHAKIR & PT AGAIN REFUSED. REEDUCATED PT ON IMPORTANCE OF PROMPT INCONTINENT CARE & FREQUENT TURNING & REPOSITIONING & PT BECAME AGITATED & REPLIED "I DON'T CARE, I DON'T WANT YOU TO TURN ME RIGHT NOW". DR FERREIRA NOTIFIED.
--- NOTE | 2017-03-13 23:25 | NUR ---
FROM 1900-PT A/0X3, FOLLOWS COMMANDS. C/O SLIGHT ABD PAIN-RATES 2 OUT OF 10 AT PRESENT-SEE EMAR FOR PAIN MED ADMINISTRATION. PT HAD BEEN REFUSING TO TURN DESPITE EXPLANATIONS WHY IMPORTANT TO TURN-PT FINALLY ALLOWED THIS RN TO TURN PT AT 2200. BREATH SOUNDS CLEAR WITH DIMINISHED BREATH SOUNDS AT BASES BILATERALLY. NO COUGH, SOB OR RESP DISTRESS NOTED AT PRESENT. SEE FLOW SHEET FOR VS, 02 SATS, I/O'S. MONITOR SHOWS ST WITH OCC PVC'S. SBP-100'S AT PRESENT. ON LEVOPHED GTT AT 2MCG/MIN-SEE FREQUENT VS FOR TITRATION. 4+ PITTING ANASARCA. ABD FIRM, DISTENDED, TENDER TO TOUCH, HYPERACTIVE BOWEL SOUNDS. ACE IN PLACE-DRAINING THICK BROWN DRAINAGE-IRRIGATED. BLADDER SCAN DONE AT [id number] TO DR. NASO. SMITH ON COCCYX INTACT. MID SPINE WITH RED BLANCHABLE AREA.
[2017-03-14] VITALS: BP 110/64
[2017-03-14 05:06] LABS: ABSOLUTE BASOPHIL COUNT 0 /CUMM (0.0-0.2); ABSOLUTE EOSINOPHIL COUNT 0 /CUMM (0.0-0.7); ABSOLUTE LYMPH COUNT 0.9 /CUMM (1.2-3.4); ABSOLUTE MONOCYTE COUNT 0.5 /CUMM (0.10-0.60); BASOPHIL % 0.1 % (0.0-2.0); EOSINOPHIL % 0.4 % (0-5); HEMATOCRIT 26.9 % (42-52); MEAN CORPUSCULAR HGB 28.3 PG (27.0-31.0); MEAN CORPUSCULAR HGB CONC 31.7 G/DL (33.0-37.0); MEAN CORPUSCULAR VOLUME 89.3 FL (80.0-94.0); MEAN PLATELET VOLUME 9.1 FL (7.4-10.4); PLATELET COUNT 269 /CUMM (130-400); RED BLOOD CELL CT 3.01 /CUMM (4.70-6.10)
[2017-03-14 05:36] LABS: WHITE BLOOD CELL COUNT 11.5 /CUMM (4.8-10.8)
--- NOTE | 2017-03-14 07:39 | NUR ---
PT SLEPT MOST OF NIGHT. C/O SLIGHT ABD PAIN, BUT DENIED NEED FOR PAIN MED THROUGHOUT SHIFT. BREATH SOUNDS CLEAR WITH DIMINISHED BREATH SOUNDS. MONITOR ST WITH OCC PVC'S. SBP-90-100'S FOR SHIFT. LEVOPHED GTT REMAINS AT 2MCG/MIN. CONTINUES WITH 4++ GENERALIZED EDEMA. ACE OUTPUT WITH STOOL-BROWN IN COLOR, NO LEAKING AROUND ACE NOTED THROUGHOUT SHIFT. PT HAD 2 BM'S OF LOOSE MELENA GUIAIC POSITIVE STOOLS. DOUDERM REMAINS INTACT ON COCCYX.
[2017-03-14 08:00] VITALS: BP 100/60
--- NOTE | 2017-03-14 08:32 | PN- Resident CRCU ---
Subjective HPI/CRCU Issues: Mr. Carrion was comfortably lying in his bed this morning. Stated that he had mild abdominal discomfort, but no acute pain. He was sleepy, and could not have a conversation about the disease prognosis and plan. Remained afebrile overnight. Continues to be on pressor support, however minimal at 1-2 mcg/m of Levophed. Borderline low blood pressure with systolic blood pressure in the range of 102 110/diastolic 50-60 with map of around 60-70. He is being weaned off pressors at this time. Total input 2331, output 785 mL. Overnight, there was a concern for urinary outlet obstruction, with possible fecal material obstructing the Price catheter. As per the nurse, after irrigating with normal saline, there was adequate urine output. Overnight, urine output 10-20 mL an hour on average. Bladder scan-this a.m. revealed 50 mL of residual. Discussed with Dr. burton, about a possible intervention. As per Dr. burton, no intervention is required at this time as long as there is some urine output and no high-volume residual in the urinary bladder. After watchijg for over 9hrs, being off pressors, and when the pt had SBP arround 100s'. MAP >65, the IJ line was removed, and pressure was applied for 10 '. No hematoma was noticed. Transfered the pt to telemetry. Informed the night team to sign out to the tele team, about the use of a low dose beta gladys, if the BP allows. Objective Vital Signs & I&O Last 8 Hrs of Vitals and I&O: Intake & Output 03/14 1600 Intake Total Output Total Balance Patient 239 lb Weight Weight Bed scale Measurement Method Exam General Appearance: awake Other Physical Findings: General Exam: AAOx3, No acute distress, Skin: No rashes, no breakdown HEENT: PERRLA, EOMI Neck: Supple, No JVD No cervical lymphadenopathy CVS: Reg Rate, Normal S1,S2, No MGR Resp: decreased air entry, no ronchi/rales Abdomen: Soft, No tenderness, Normal Bowel Sounds Neuro: Normal Speech, Strength 4/5 b/l x 4 extremities, Sensation intact, CN exam could not be done, Reflexes 2+ Extremities: No cyanosis, pedal edema 3+, price athetoid in place which is draining dark fluid, likely stool. Current Medications: Current Medications Sig/Ghulam Start time Last Medication Dose Route Stop Time Status Admin Acetaminophen 650 MG Q6P PRN 03/12 1630 AC PO Albuterol Sulfate 3 ML Q4P PRN 03/12 1115 AC INH Albuterol Sulfate 3 ML Q6H PRN 03/11 0930 AC INH Alprazolam 0.25 MG BID PRN 03/11 0930 AC PO 03/18 0929 Ampicillin Sodium/ 1,500 MG Q6H 03/13 2030 AC 03/15 Sulbactam Sodium IV 0820 Sodium Chloride 100 ML Enoxaparin Sodium 100 MG Q12 03/13 2200 DC 03/15 SC 0920 Furosemide 40 MG ONCE ONE 03/15 1245 CAN IV 03/15 1246 Levetiracetam 1,000 MG Q12 03/11 2252 AC 03/15 N/A 1 UNIT IV 0921 Lorazepam 0.5 MG BID PRN 03/12 1330 AC 03/15 PO 03/19 1329 0537 Magnesium Oxide 400 MG .STK-MED ONE 03/15 0536 DC PO 03/15 0537 Magnesium Sulfate 1 GM ONCE ONE 03/15 0530 DC 03/15 Dextrose/Water 100 ML IV 03/15 0929 0537 Metoprolol Tartrate 6.25 MG BID 03/15 2200 AC PO Metoprolol Tartrate 12.5 MG BID 03/15 1237 DC PO Morphine Sulfate 2 MG Q6P PRN 03/12 1630 AC 03/15 IV 1203 Norepinephrine 4 MG Q24H 03/14 0900 AC Sodium Chloride 250 ML IV Omeprazole 40 MG DAILY AC 03/13 0700 AC 03/15 PO 0536 Ondansetron HCl 4 MG Q6P PRN 03/11 0930 AC IV Phenytoin 200 MG BID 03/11 2253 AC 03/15 Sodium Chloride 50 ML IV 0920 Potassium Chloride 40 MEQ ONCE ONE 03/15 0530 DC 03/15 PO 03/15 0531 0537 Sertraline HCl 150 MG QPM 03/12 2200 AC 03/14 PO 2233 Sodium Chloride 500 ML BOLUS ONE 03/15 1545 AC IV 03/15 1644 Trazodone HCl 50 MG AT BEDTIME 03/11 2200 AC 03/14 PO 2234 Impression/Plan Impression/Problem List Impression: Mr Carrion is a 61-year-old man with a past history of 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 In the last 24 hours, vitals stable, who remains on pressor support, minimal 1-2 mcg/m of Levophed. Overnight, he had quick runs of SVT. Also had urinary obstruction likely from fecal material blocking the Price catheter outlet. Below is the problem list and plan: #1 respiratory-continues to be on 2 L oxygen-nasal cannula with oxygen saturation above 96%. Continue to monitor. #2 [id number] bacteremia, and also growth of gram-negative rods and gram-positive cocci in his urine. 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 WBC 11.5, with 87% granulocytes, with less than 5% bands. Continues to be on unasyn D2. # circulatory- BP stable, on levophed. Titrate off the pressors. As per cardiology, start with a small dose of a beta gladys, for svt/cardiomyopathy after the BP is more stable. # metabolic- renal function stable. Uninary catheter drainage has fecal material , likely from a fistula. Await recommendation from urology. If the patient has obstruction, or decreased urine output, inform urology. # alimentary- EGD done yesterday, which did not reveal any bleeding ulcers. Contiues to have ubaldo. diet as tolerated. # Neuro- stable. Problem List: 1. GI bleed 2. Shock 3. Complicated urinary tract infection 4. History of seizures 5. Pseudomyxoma peritonei 6. Sepsis Pain Ratin Tomorrow's Labs & Rationales: cbc bep Plan DVT/Prophylaxis: mechanical Code Status: Do Not Resucitate/Intubat
--- NOTE | 2017-03-14 09:23 | NUR ---
AT 0800 REC'D THE PT SLEEPING IN BED, EASILY AROUSABLE. PT IS ORIENTED X2, HOWEVER, KNOWS MONTH/YR JUST NOT DAY AND DATE. REORIENTS EASILY. OFFERS NO C/O PAIN EXCEPT WHEN MOVING AND THEN THE PAIN SUBSIDES ONCE DONE MOVING. LYNN WEAKLY R/T PAIN AND 4+ GENERAIZED EDEMA INC SCROTUM, SCROTUM ELEVATED. PT IS IN A ST WITHOCC PVC'S PER THE HEAVY DUTY CUSTODIAN. CONTINUES ON A LEVOPHED GTT, INITIALLY WAS A T 2MCG/MIN, HOWEVER, WAS DECREASED TO 1MCG/MIN OR 3.8ML/HR AT 0905 FOR A BP OF 119/76(AUTOCUFF), BP IS CURRENTLY 97/60. LEVOPHED IS INFUSING VIA THE WHITE PORT OF THE RIJ TLC. NS AT 5ML/HR INFUSING VIA THE BLUE PORT. BROWN PORT AND BOTH PORTS OF THE HARDIK PICC WERE FLUSHED WITH 10ML NS AND HAVE BLOOD RETURN. SHAR BS ARE CLEAR BUT DIMINISHED AT THE BASES WITH AN O2 SAT OF 94% ON A 2LNC. BECOMES SOB WITH TURNING AND LAYING FLAT. PT IS TACHYPNEIC. ABD IS DISTENDED AND FRIM WITH NORMOACTIVE BOWEL SOUNDS. HAD A MODERATE HEME + LIQUID DK BROWN STOOL. DR CARMEN NICHOLS NOTIFIED. ACE IN PLACE DRAINING URINE MIXED WITH STOOL. PER DR NICHOLS'S REQUEST THE PT WAS BLADDER SCANNED, WHICH INDICATED 50ML IN BLADDER. COCCYX IS REDDENED BUT BLANCHABLE. ALL EXTREMITIES ELEVATED ON PILLOWS. .
--- NOTE | 2017-03-14 10:21 | PN- Pulmonary ---
Subjective HPI/Critical Care Issues: Sleeping fatigued Objective Current Medications: Current Medications Sig/Ghulam Start time Last Medication Dose Route Stop Time Status Admin Acetaminophen 650 MG Q6P PRN 03/12 1630 AC PO Albuterol Sulfate 3 ML Q4P PRN 03/12 1115 AC INH Albuterol Sulfate 3 ML Q6H PRN 03/11 0930 AC INH Alprazolam 0.25 MG BID PRN 03/11 0930 AC PO 03/18 0929 Ampicillin Sodium/ 1,500 MG Q6H 03/13 2030 AC 03/14 Sulbactam Sodium IV 0845 Sodium Chloride 100 ML Ampicillin Sodium/ 1,500 MG Q6 03/13 1200 DC 03/13 Sulbactam Sodium IV 1437 Sodium Chloride 100 ML Ceftazidime 1,000 MG IQ8 03/11 1600 DC 03/13 IV 1025 Enoxaparin Sodium 100 MG Q12 03/13 2200 AC 03/14 SC 0941 Enoxaparin Sodium 100 MG Q12H 03/12 1900 DC 03/13 SC 1025 Levetiracetam 1,000 MG Q12 03/11 2252 AC 03/14 N/A 1 UNIT IV 0941 Lorazepam 0.5 MG BID PRN 03/12 1330 AC 03/13 PO 03/19 1329 1031 Magnesium Sulfate 1 GM Q2H 03/13 1030 DC 03/13 Dextrose/Water 100 ML IV 03/13 1429 1200 Morphine Sulfate 2 MG Q6P PRN 03/12 1630 AC 03/13 IV 1832 Norepinephrine 4 MG Q24H 03/14 0900 AC Sodium Chloride 250 ML IV Norepinephrine 4 MG Q8H 03/13 1000 DC 03/13 Sodium Chloride 250 ML IV 1043 Omeprazole 40 MG DAILY AC 03/13 0700 AC 03/14 PO 0616 Ondansetron HCl 4 MG Q6P PRN 03/11 0930 AC IV Phenytoin 200 MG BID 03/11 2253 AC 03/14 Sodium Chloride 50 ML IV 0941 Sertraline HCl 150 MG QPM 03/12 2200 AC 03/13 PO 2141 Sodium Chloride 500 ML BOLUS ONE 03/13 0545 DC 03/13 IV 03/13 1224 0623 Trazodone HCl 50 MG AT BEDTIME 03/11 2200 AC 03/13 PO 2141 Vital Signs & I&O Last 24 Hrs of Vitals and I&O: Vital Signs Date Time Temp Pulse Resp B/P B/P Pulse O2 O2 Flow FiO2 Mean Ox Delivery Rate 03/14 0800 94 Nasal 2.0L Cannula 03/14 0800 97.9 116 24 100/60 94 Nasal 2.0L Cannula 03/14 0400 96 Nasal 2.0L Cannula 03/14 0000 94 Nasal 2.0L Cannula 03/14 0000 97.8 123 23 110/64 94 Aerosol 35% Mask 03/13 2251 95 Nasal 2.0L Cannula 03/13 2000 97 Nasal 2.0L Cannula 03/13 1600 97.2 115 24 86/56 95 Nasal 2.0L Cannula 03/13 1600 95 Nasal 2.0L Cannula 03/13 1254 98 Nasal 3.0L Cannula 03/13 1200 96 Nasal 2.0L Cannula 03/13 1043 120 96/53 Intake & Output 03/14 1600 03/14 0800 03/14 0000 Intake Total 520 357 Output Total 194 120 Balance 326 237 Intake, IV 280 237 Intake, Oral 240 120 Number 2 2 Bowel Movements Output, Urine 194 120 Patient 239 lb Weight Weight Bed scale Measurement Method Laboratory Tests 03/14 03/13 0433 0440 Chemistry Sodium (137 - 145 mmol/L) 144 144 Potassium (3.5 - 5.1 mmol/L) 3.6 3.6 Chloride (98 - 107 mmol/L) 110 H 109 H Carbon Dioxide (22 - 30 mmol/L) 24 25 Anion Gap (5 - 16) 10 9 BUN (9 - 20 mg/dL) 37 H 39 H Creatinine (0.7 - 1.2 mg/dL) 0.7 0.7 Estimated GFR (>60 ml/min) > 60 > 60 Glucose (65 - 99 mg/dL) 84 87 Calcium (8.4 - 10.2 mg/dL) 7.8 L 7.9 L Phosphorus (2.5 - 4.5 mg/dL) 3.7 4.0 Magnesium (1.6 - 2.3 mg/dL) 1.9 1.8 Total Bilirubin (0.2 - 1.3 mg/dL) 0.3 0.3 AST (17 - 59 U/L) 16 L 21 ALT (21 - 72 U/L) 36 39 Albumin (3.5 - 5.0 g/dL) 1.7 L 1.8 L Hematology CBC w Diff NO MAN DIFF REQ MAN DIFF ORDERED WBC (4.8 - 10.8 /CUMM) 11.5 H 16.6 H RBC (4.70 - 6.10 /CUMM) 3.01 L 3.17 L Hgb (14.0 - 18.0 G/DL) 8.5 L 9.2 L Hct (42 - 52 %) 26.9 L 28.4 L MCV (80.0 - 94.0 FL) 89.3 89.6 MCH (27.0 - 31.0 PG) 28.3 28.9 RDW (11.5 - 14.5 %) 18.0 H 17.7 H Plt Count (130 - 400 /CUMM) 269 268 MPV (7.4 - 10.4 FL) 9.1 8.3 Gran % (42.2 - 75.2 %) 87.0 H 91.3 H Lymphocytes % (20.5 - 51.1 %) 7.8 L 5.6 L Monocytes % (1.7 - 9.3 %) 4.7 3.0 Eosinophils % (0 - 5 %) 0.4 0.1 Basophils % (0.0 - 2.0 %) 0.1 0 L Absolute Granulocytes (1.4 - 6.5 /CUMM) 10.0 H 15.2 H Segmented Neutrophils (42.2 - 75.2 %) 74 Band Neutrophils (0.0 - 5.0 %) 19 H Absolute Lymphocytes (1.2 - 3.4 /CUMM) 0.9 L 0.9 L Lymphocytes (20.5 - 51.1 %) 6 L Monocytes (1.7 - 9.3 %) 1 L Absolute Monocytes (0.10 - 0.60 /CUMM) 0.5 0.5 Absolute Eosinophils (0.0 - 0.7 /CUMM) 0 0 Absolute Basophils (0.0 - 0.2 /CUMM) 0 0 Platelet Estimate (ADEQUATE) ADEQUATE PUBS MCHC (33.0 - 37.0 G/DL) 31.7 L 32.3 L 03/12 03/12 2223 1630 Coagulation PT (9.4 - 12.5 SEC) 12.9 H INR (0.90 - 1.17) 1.23 H Hematology CBC w Diff NO MAN DIFF REQ NO MAN DIFF REQ WBC (4.8 - 10.8 /CUMM) 15.4 H 11.0 H RBC (4.70 - 6.10 /CUMM) 3.20 L 3.01 L Hgb (14.0 - 18.0 G/DL) 9.3 L 8.6 L Hct (42 - 52 %) 28.5 L 27.0 L MCV (80.0 - 94.0 FL) 89.2 89.8 MCH (27.0 - 31.0 PG) 29.0 28.7 RDW (11.5 - 14.5 %) 17.5 H 18.2 H Plt Count (130 - 400 /CUMM) 258 264 MPV (7.4 - 10.4 FL) 8.8 9.0 Gran % (42.2 - 75.2 %) 94.0 H 84.5 H Lymphocytes % (20.5 - 51.1 %) 4.4 L 9.3 L Monocytes % (1.7 - 9.3 %) 1.4 L 5.9 Eosinophils % (0 - 5 %) 0.1 0.2 Basophils % (0.0 - 2.0 %) 0.1 0.1 Absolute Granulocytes (1.4 - 6.5 /CUMM) 14.5 H 9.3 H Absolute Lymphocytes (1.2 - 3.4 /CUMM) 0.7 L 1.0 L Absolute Monocytes (0.10 - 0.60 /CUMM) 0.2 0.7 H Absolute Eosinophils (0.0 - 0.7 /CUMM) 0 0 Absolute Basophils (0.0 - 0.2 /CUMM) 0 0 PUBS MCHC (33.0 - 37.0 G/DL) 32.5 L 32.0 L Microbiology Date/Time Procedure - Status Source Growth 03/13 1125 Blood Culture - RECD BLOOD 03/12 1520 Urine Culture - RES URINE ROUT GRAM NEGATIVE RODS GRAM POSITIVE COCCI 03/11 2145 Surveillance Culture - COMP UPPER RESP 03/11 2145 Surveillance Culture - COMP GI Impression/Plan Impression/Plan Impression/Plan: Mr. 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 His issues include Septic shock gram-negative most likely etiology is tumor necrosis with infection , no clinical evidence of fistula between bowel and bladder Gram-negative sepsis, now requiring vasopressors Significantly enlarging pelvic mass, low grade mucinous neoplasm would require extensive surgery in the future when patient is clinically stable GI bleed, upon admission status post upper endoscopy with no obvious source of significant bleeding Poor performance status Severe malnutrition with bilateral effusions RECOMMENDATION Taper norepinephrine off Ok with low dose beta gladys Can change antibiotic to Unasyn for now Patient can be transferred to the floor if he comes off vasopressors . Patient wishes to be DNR/DNI
--- NOTE | 2017-03-14 11:18 | NUR ---
THE LEVOPHED WAS TITRATED TO 1MCG/MIN ANT 0905 AND THEN TURNED OFF AT 1000. PT IS MAINTAINING A SBP OF 90 OR GREATER WELL A MAP OF 65 OR GREATER. DANETTE CAREY AND MAGDALENA AWARE.
--- NOTE | 2017-03-14 11:32 | PN- Cardiology ---
Subjective Subjective: Reports fatigue. Denies dyspnea or palpitations. "I want to be left alone ". Pressor requirements decreasing. Objective Vital Signs and I&Os Vital Signs Date Time Temp Pulse Resp B/P B/P Pulse O2 O2 Flow FiO2 Mean Ox Delivery Rate 03/14 0800 94 Nasal 2.0L Cannula 03/14 0800 97.9 116 24 100/60 94 Nasal 2.0L Cannula 03/14 0400 96 Nasal 2.0L Cannula 03/14 0000 94 Nasal 2.0L Cannula 03/14 0000 97.8 123 23 110/64 94 Aerosol 35% Mask 03/13 2251 95 Nasal 2.0L Cannula 03/13 2000 97 Nasal 2.0L Cannula 03/13 1600 97.2 115 24 86/56 95 Nasal 2.0L Cannula 03/13 1600 95 Nasal 2.0L Cannula 03/13 1254 98 Nasal 3.0L Cannula 03/13 1200 96 Nasal 2.0L Cannula Intake & Output 03/14 1600 03/14 0800 03/14 0000 03/13 1600 03/13 0800 03/13 0000 Intake Total 373 732 6845 687 939 Output Total 194 120 475 145 640 Balance 326 237 949 542 299 Intake, IV 100 830 2891 147 339 Intake, Oral 240 120 260 480 Intake, Other 260 280 120 Number 2 2 2 1 0 Bowel Movements Output, Urine 194 120 475 145 640 Patient 239 lb 229 lb Weight Weight Bed scale Measurement Method Physical Exam: General: no apparent distress. Eyes: No obvious scleral icterus. HEENT: No jugular venous distention or abnormal jugular venous pulsations. Cardiovascular: Normal intensity S1/S2. Regular. Respiratory: Decreased air entry bilaterally Musculoskeletal: No clubbing or cyanosis noted Skin: warm Current Medications: Current Medications Sig/Ghulam Start time Last Medication Dose Route Stop Time Status Admin Acetaminophen 650 MG Q6P PRN 03/12 1630 AC PO Albuterol Sulfate 3 ML Q4P PRN 03/12 1115 AC INH Albuterol Sulfate 3 ML Q6H PRN 03/11 0930 AC INH Alprazolam 0.25 MG BID PRN 03/11 0930 AC PO 03/18 0929 Ampicillin Sodium/ 1,500 MG Q6H 03/13 2030 AC 03/14 Sulbactam Sodium IV 0845 Sodium Chloride 100 ML Ampicillin Sodium/ 1,500 MG Q6 07/15 1200 DC 03/13 Sulbactam Sodium IV 1437 Sodium Chloride 100 ML Ceftazidime 1,000 MG IQ8 03/11 1600 DC 03/13 IV 1025 Enoxaparin Sodium 100 MG Q12 03/13 2200 03/14 SC 0941 Enoxaparin Sodium 100 MG Q12H 03/12 1900 OR 03/13 SC 1025 Levetiracetam 1,000 MG Q12 03/11 2252 03/14 N/A 1 UNIT IV 0941 Lorazepam 0.5 MG BID PRN 03/12 1330 AC 03/13 PO 03/19 1329 1031 Magnesium Sulfate 1 GM Q2H 03/13 1030 OR 03/13 Dextrose/Water 100 ML IV 03/13 1429 1200 Morphine Sulfate 2 MG Q6P PRN 03/12 1630 03/13 IV 1832 Norepinephrine 4 MG Q24H 03/14 0900 AC Sodium Chloride 250 ML IV Norepinephrine 4 MG Q8H 03/13 1000 DC 03/13 Sodium Chloride 250 ML IV 1043 Omeprazole 40 MG DAILY AC 03/13 0700 AC 03/14 PO 0616 Ondansetron HCl 4 MG Q6P PRN 03/11 0930 AC IV Phenytoin 200 MG BID 03/11 2253 03/14 Sodium Chloride 50 ML IV 0941 Potassium Chloride 20 MEQ ONCE ONE 03/14 1045 DC 03/14 IV 03/14 1046 1051 Potassium Chloride 10 MEQ Q1H 03/14 1030 DC IV 03/14 1131 Sertraline HCl 150 MG QPM 03/12 2200 03/13 PO 2141 Sodium Chloride 500 ML BOLUS ONE 03/13 0545 OR 03/13 IV 03/13 1224 0623 Trazodone HCl 50 MG AT BEDTIME 03/11 220 03/13 PO 2141 Results Last 48 Hrs of Labs/Mics: Laboratory Tests 03/14/17 0433: Anion Gap 10, Estimated GFR > 60, Glucose 84, Calcium 7.8 L, Phosphorus 3.7, Magnesium 1.9, Total Bilirubin 0.3, AST 16 L, ALT 36, Albumin 1.7 L, CBC w Diff NO MAN DIFF REQ, RBC 3.01 L, MCV 89.3, MCH 28.3, RDW 18.0 H, MPV 9.1, Gran % 87.0 H, Lymphocytes % 7.8 L, Monocytes % 4.7, Eosinophils % 0.4, Basophils % 0.1, Absolute Granulocytes 10.0 H, Absolute Lymphocytes 0.9 L, Absolute Monocytes 0.5, Absolute Eosinophils 0, Absolute Basophils 0, PUBS MCHC 31.7 L 03/13/17 0440: Anion Gap 9, Estimated GFR > 60, Glucose 87, Calcium 7.9 L, Phosphorus 4.0, Magnesium 1.8, Total Bilirubin 0.3, AST 21, ALT 39, Albumin 1.8 L, CBC w Diff MAN DIFF ORDERED, RBC 3.17 L, MCV 89.6, MCH 28.9, RDW 17.7 H, MPV 8.3, Gran % 91.3 H, Lymphocytes % 5.6 L, Monocytes % 3.0, Eosinophils % 0.1, Basophils % 0 L, Absolute Granulocytes 15.2 H, Segmented Neutrophils 74, Band Neutrophils 19 H, Absolute Lymphocytes 0.9 L, Lymphocytes 6 L, Monocytes 1 L, Absolute Monocytes 0.5, Absolute Eosinophils 0, Absolute Basophils 0, Platelet Estimate ADEQUATE, PUBS MCHC 32.3 L 03/12/17 2223: CBC w Diff NO MAN DIFF REQ, RBC 3.20 L, MCV 89.2, MCH 29.0, RDW 17.5 H, MPV 8.8, Gran % 94.0 H, Lymphocytes % 4.4 L, Monocytes % 1.4 L, Eosinophils % 0.1 , Basophils % 0.1, Absolute Granulocytes 14.5 H, Absolute Lymphocytes 0.7 L, Absolute Monocytes 0.2, Absolute Eosinophils 0, Absolute Basophils 0, PUBS MCHC 32.5 L 03/12/17 1630: PT 12.9 H, INR 1.23 H, CBC w Diff NO MAN DIFF REQ, RBC 3.01 L, MCV 89.8, MCH 28.7, RDW 18.2 H, MPV 9.0, Gran % 84.5 H, Lymphocytes % 9.3 L, Monocytes % 5.9, Eosinophils % 0.2, Basophils % 0.1, Absolute Granulocytes 9.3 H, Absolute Lymphocytes 1.0 L, Absolute Monocytes 0.7 H, Absolute Eosinophils 0, Absolute Basophils 0, PUBS MCHC 32.0 L Recent Imaging Studies: Telemetry tracings were personally reviewed and shows sinus rhythm with short runs of SVT suspicious for atrial fibrillation Assessment/Plan Assessment/Plan 1. 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 Sepsis with possible tumor necrosis of abdominal neoplasm 3. Tachycardia with SVT bursts 4. History of pulmonary embolism on Lovenox for anticoagulation 5. Pleural effusions 6. Malnutrition 7. Hypotension The patient's pressor requirements are decreasing. Telemetry shows sinus tachycardia with SVT bursts suspicious for short runs of atrial fibrillation. As we are suspecting possible tachycardia-induced cardiomyopathy would hope to be able to start a low-dose beta gladys if he is off pressors. Addy Valero MD [facility] Continue telemetry? Yes
[2017-03-14 16:00] VITALS: BP 92/60
--- NOTE | 2017-03-14 16:37 | NUR ---
PT C/O HAVING DIFFICULTY BREATHING. O2 AT WAS 94%. PT NOTED TO HAVE SLID DOWN IN THE BED . PT BOOSTED UP IN THE BED AND PER PT"THAT FEELS SO MUCH BETTER. I CAN BREATHE." REMAINS OFF THE LEVOPHED GTT. AWAITING DR JUNG NICHOLS TO REMOVE THE RIJ TLC.
[2017-03-15] VITALS: BP 100/62
[2017-03-15 04:34] LABS: ABSOLUTE BASOPHIL COUNT 0 /CUMM (0.0-0.2); ABSOLUTE EOSINOPHIL COUNT 0.1 /CUMM (0.0-0.7); ABSOLUTE GRANULOCYTE CT 9.6 /CUMM (1.4-6.5); ABSOLUTE LYMPH COUNT 0.8 /CUMM (1.2-3.4); ABSOLUTE MONOCYTE COUNT 0.5 /CUMM (0.10-0.60); BASOPHIL % 0.3 % (0.0-2.0); EOSINOPHIL % 0.7 % (0-5); GRANULOCYTE % 86.6 % (42.2-75.2); HEMATOCRIT 25.9 % (42-52); MEAN CORPUSCULAR HGB 28.7 PG (27.0-31.0); MEAN CORPUSCULAR HGB CONC 31.8 G/DL (33.0-37.0); MEAN CORPUSCULAR VOLUME 90.4 FL (80.0-94.0); MEAN PLATELET VOLUME 8.7 FL (7.4-10.4); PLATELET COUNT 270 /CUMM (130-400); RBC DISTRIBUTION WIDTH 18.3 % (11.5-14.5); RED BLOOD CELL CT 2.87 /CUMM (4.70-6.10); WHITE BLOOD CELL COUNT 11.1 /CUMM (4.8-10.8)
--- NOTE | 2017-03-15 07:41 | PN- Resident CRCU ---
See Addendum Subjective HPI/CRCU Issues: Cardiac events: sinus tachycardia for most of the night in the 120s with a few events of sinus tach which appear irregular, either PACs versus atrial fibrillation. He also had 2 beats of ventricular tachycardia. He is now off of pressors and maintaining his blood pressure. Vitals this morning 97.8/114/16/100/62 saturating 98% on 2 L of oxygen via nasal cannula. Upon questioning this morning, Mr. Jimenez states he slept well, and is much more comfortable than yesterday and Wednesday. He denies any more abdominal pain. His mood seems up however he is still hesitant to undergo a full examination and at times hesitant when we discuss our treatment plan. Price still in place, draining feces contaminated urine, but it appears the price is no longer clogged, and draining consistently. Morning labs did show hypokalemia 3.4 which was repleted with 40 of potassium. Objective Vital Signs & I&O Last 8 Hrs of Vitals and I&O: Vital Signs Date Time Temp Pulse Resp B/P B/P Pulse O2 O2 Flow FiO2 Mean Ox Delivery Rate 03/15 0000 98 Nasal 2.0L Cannula 03/15 0000 97.8 114 16 100/62 98 Nasal 2.0L Cannula 03/14 2140 95 Nasal 2.0L Cannula 03/14 1600 95 Nasal 2.0L Cannula 03/14 1600 97.6 119 27 92/60 95 Nasal 2.0L Cannula 03/14 1200 100 Nasal 2.0L Cannula Exam General Appearance: alert, awake, mild distress, grossly edematous Head: atraumatic, normal appearance Ears, Nose, Throat: normal ENT inspection Respiratory: normal breath sounds, chest non-tender, no respiratory distress Cardiovascular: tachycardia w/o MRG Gastrointestinal: distended abdomen, slight tender to palpation. BS heard Extremities: RUE swelling improving. BL LE still present, R worse than L, but improved compared to when I saw him on wednesday. Other Physical Findings: Price cath in place, draining feces contaminated urine. Current Medications: Current Medications Sig/Ghulam Start time Last Medication Dose Route Stop Time Status Admin Acetaminophen 650 MG Q6P PRN 03/12 1630 AC PO Albuterol Sulfate 3 ML Q4P PRN 03/12 1115 AC INH Albuterol Sulfate 3 ML Q6H PRN 03/11 0930 AC INH Alprazolam 0.25 MG BID PRN 03/11 0930 AC PO 03/18 0929 Ampicillin Sodium/ 1,500 MG Q6H 03/13 2030 AC 03/15 Sulbactam Sodium IV 0820 Sodium Chloride 100 ML Enoxaparin Sodium 100 MG Q12 03/13 2200 AC 03/14 SC 2233 Levetiracetam 1,000 MG Q12 03/11 2252 AC 03/14 N/A 1 UNIT IV 2235 Lorazepam 0.5 MG BID PRN 03/12 1330 AC 03/15 PO 03/19 1329 0537 Magnesium Sulfate 1 GM ONCE ONE 03/15 0530 AC 03/15 Dextrose/Water 100 ML IV 03/15 09 0537 Morphine Sulfate 2 MG Q6P PRN 03/12 1630 AC 03/15 IV 0459 Norepinephrine 4 MG Q24H 03/14 0900 AC Sodium Chloride 250 ML IV Omeprazole 40 MG DAILY AC 03/13 0700 AC 03/15 PO 0536 Ondansetron HCl 4 MG Q6P PRN 03/11 0930 AC IV Phenytoin 200 MG BID 03/11 2253 AC 03/14 Sodium Chloride 50 ML IV 2233 Potassium Chloride 40 MEQ ONCE ONE 03/15 0530 DC 03/15 PO 03/15 0531 0537 Potassium Chloride 20 MEQ ONCE ONE 03/14 1045 DC 03/14 IV 03/14 1046 1051 Potassium Chloride 10 MEQ Q1H 03/14 1030 DC IV 03/14 1131 Sertraline HCl 150 MG QPM 03/12 2200 AC 03/14 PO 2233 Trazodone HCl 50 MG AT BEDTIME 03/11 2200 AC 03/14 PO 2234 Impression/Plan Impression/Problem List Impression: Mr Carrion is a 61-year-old man with a 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 In the last 24 hours, vitals stable, who remains on pressor support, minimal 1-2 mcg/m of Levophed. Overnight, he had quick runs of SVT. Also had urinary obstruction likely from fecal material blocking the Price catheter outlet. Problem List/Assessment and Plan Respiratory * improved. Now saturating in the high 90s on 2 L oxygen-nasal cannula * CXR showed BL pleural effusions. Clinically, he is fluid overloaded, and as his BP is improved, we will consider giving a dose of lasix, 40mg * Continue to monitor * PE was in 2013, pt says he thinks it was after surgery. I do not think he needs his lovenox any more as if it was indeed after surgery, this would be a provoked PE and he would need AC for 3-6 months. * Consider d/c'ing, azael since his H/H is slowly dropping Infectious * 1/2 bottles growing e. coli with urine growing e. 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 On Unasyn 1.5q6h day 3 * Afebrile and leukocytosis slowly improving. * Uro consult appreciated. No intervention now as the price is draining. We will consider changing it to a larger kazakh if necessary. Cardiac/circulatory * BP stable off levophed. * Heart failure most likely tachycardia induced. * He remains in sinus tach overnight. Consider a Beta selective beta-gladys like metoprolol, maybe 12.5mg BID to be titrated upwards if ok with cardio * We will also consider a dose of lasix, after an infusion of albumin to increase diuresis if BP tolerates it. Hematology * H/H 8.2/25.9, slightly down from 8.5/26.9 * Remains on Lovenox - as above, we will consider d/c Alimentary * Now on a PO diet, although he is not eating much, Albumin 1.6. Pre-albumin level pending for this am * s/p EGD, which did not reveal any bleeding ulcers. Contiues to have dark stools but H/H stable. Neuro * No change. * Continue anti-epileptic meds DVT ppx: on lovenox SC DNR/DNI Problem List: 1. Shock 2. GI bleed 3. Complicated urinary tract infection 4. Pseudomyxoma peritonei 5. History of seizures Pain Ratin Tomorrow's Labs & Rationales: cbc/icu bundle Plan DVT/Prophylaxis: mechanical Code Status: Do Not Resucitate/Intubat
--- NOTE | 2017-03-15 07:48 | Cons- Urology ---
General Information and HPI Consulting Request Date of Consult: 03/15/17 Requested By: REYES WHITESIDE MD Reason for Consult: colovesical fistula with intermittent obstruction of price Source of Information: old records Exam Limitations: no limitations History of Present Illness: This patient has a large pelvic mass fixed to the bladder. He has been hospitalized here and at [place]. Currently he has fistulization from the bowel to the mass and subsequently to the bladder. There is fecal material draining from the price which has intermittently obstructed the price. Allergies/Medications Allergies: Coded Allergies: NO KNOWN ALLERGIES (01/11/14) Home Med List: Acetaminophen (8 Hour) 650 MG TABLET.ER 1 TAB PO Q4H PRN PAIN/TEMP/> 101 ( Reported) Acetaminophen (Acephen) 650 MG SUPP.RECT 1 SUPP NC Q4H PRN PAIN/TEMP>101 ( Reported) Albuterol Sulfate 2.5 MG/3 ML (0.083 %) VIAL.NEB 1 Vial INH/BRIT Q6H PRN SOB ( Reported) Alprazolam (Xanax) 0.25 MG TABLET 1 TAB PO BID PRN anxiety Bisacodyl 10 MG SUPP.RECT 1 SUP RC DAILY PRN CONSTIPATION (Reported) Diltiazem HCl (Diltiazem 24HR ER) 180 MG CAP.ER.24H 1 CAP PO DAILY tachycardia (Reported) Enoxaparin Sodium (Lovenox) 100 MG/ML SYRINGE 100 MG SC Q12H BLOOD THINNER ( Reported) Ferrous Sulfate 325 MG (65 MG IRON) TABLET 1 TAB PO BID ANEMIA (Reported) Folic Acid 1 MG TABLET 1 TAB PO DAILY SUPPLEMENT (Reported) Levetiracetam (Keppra) 1,000 MG TABLET 1 TAB PO Q12H seizure prophylaxis Loperamide HCl (Imodium A-D) 2 MG TABLET 1 TAB PO Q6H PRN LOOSE STOOL ( Reported) Magnesium Hydroxide (Milk Of Magnesia) 400 MG/5 ML ORAL.SUSP 30 ML PO DAILY PRN CONSTIPATION (Reported) Magnesium Oxide 400 MG TABLET 400 MG PO BID hypomagnesemia Metoprolol Tartrate (Lopressor) 50 MG TABLET 75 MG PO BID HTN/TACYHCARDIA ( Reported) Multivitamin (Daily Multiple Vitamin) 1 EACH TABLET 1 TAB PO DAILY SUPPLEMENT (Reported) Na Phos,M-B/Na Phos,Di-Ba (Fleet Enema) 19 GRAM-7 GRAM/118 ML ENEMA 1 E RC DAILY PRN CONSTIPATION (Reported) Omeprazole 40 MG CAPSULE.DR 1 CAP PO DAILY acidity Ondansetron HCl 4 MG TABLET 1 TAB PO Q6P PRN N/V (Reported) Oxybutynin Chloride 5 MG TABLET 1 TAB PO DAILY (Reported) Phenytoin Sodium Extended 100 MG CAPSULE 2 CAP PO BID SEIZURES (Reported) Sertraline HCl (Zoloft) 100 MG TABLET 1 TAB PO QPM DEPRESSION (Reported) [TPN] TPN (Reported) Trazodone HCl 50 MG TABLET 1 TAB PO QHS INSOMNIA (Reported) Past History Medical History Blood Transfusion Hx: Yes Neurological: seizure, childhood encephalitis EENT: NONE Cardiovascular: syncope (possible unwitnessed) Respiratory: pulmonary embolism (06/2014) Gastrointestinal: GERD (mild), hiatal hernia, large pelvic mass Hepatic: NONE Renal: benign prost hyperplasia Musculoskeletal: osteopenia; TL compression fractures Psychiatric: NONE Endocrine: osteopenia Blood Disorders: anemia, PE (06/2014) Cancer(s): NONE GLASSWARE SELECTOR/Reproductive: NONE Surgical History Pertinent Surgical History: colon resection (s/p right hemicolectomy 12/2016), wrist surgery Family History Relations & Conditions If Any: FATHER, , Age 40-50; Cause: Cancer of unknown origin. MOTHER, , Age 50-60; Cause: Cancer of unknown origin. BROTHER ([employer]). Relation not specified for: *No pertinent family history Psychosocial History Where Do You Live? Extended Care Facility Services at Home: None Primary Language: Swedish Smoking Status: Never Smoked ETOH Use: denies use Illicit Drug Use: denies illicit drug use Living Will? yes Power of Newspaper Library Manager/HCP? unknown Name of POA/HCP: brother Functional Ability ADLs Unknown: dressing, eating, toileting, bathing. Ambulation: independent IADLs Unknown: shopping, housework, finances, food prep, telephone, transportation, medication admin. Exam & Diagnostic Data Vital Signs and I&O Vital Signs Date Time Temp Pulse Resp B/P B/P Pulse O2 O2 Flow FiO2 Mean Ox Delivery Rate 03/15 0000 98 Nasal 2.0L Cannula 03/15 0000 97.8 114 16 100/62 98 Nasal 2.0L Cannula 03/14 2140 95 Nasal 2.0L Cannula 03/14 1600 95 Nasal 2.0L Cannula 03/14 1600 97.6 119 27 92/60 95 Nasal 2.0L Cannula 03/14 1200 100 Nasal 2.0L Cannula 03/14 0800 94 Nasal 2.0L Cannula 03/14 0800 97.9 116 24 100/60 94 Nasal 2.0L Cannula Intake & Output 03/15 0800 03/15 0000 03/14 1600 03/14 0800 03/14 0000 03/13 1600 Intake Total 600 700 749 198 788 0245 Output Total 250 100 410 194 120 475 Balance 350 600 339 326 237 949 Intake, IV 200 300 549 682 497 9480 Intake, Oral 400 400 200 240 120 Intake, Other 260 Number 2 2 3 2 2 2 Bowel Movements Output, Urine 250 100 410 194 120 475 Patient 239 lb 229 lb Weight Weight Bed scale Measurement Method Chronically ill-appearing male lying in bed Abd: soft with some tenderness Genitalia: Genital edema present. Price in place draining feculant urine Laboratory Tests 03/15 0405 Chemistry Sodium (137 - 145 mmol/L) 143 Potassium (3.5 - 5.1 mmol/L) 3.4 L Chloride (98 - 107 mmol/L) 112 H Carbon Dioxide (22 - 30 mmol/L) 24 Anion Gap (5 - 16) 8 BUN (9 - 20 mg/dL) 34 H Creatinine (0.7 - 1.2 mg/dL) 0.8 Estimated GFR (>60 ml/min) > 60 Glucose (65 - 99 mg/dL) 79 Calcium (8.4 - 10.2 mg/dL) 7.7 L Phosphorus (2.5 - 4.5 mg/dL) 3.5 Magnesium (1.6 - 2.3 mg/dL) 1.8 Total Bilirubin (0.2 - 1.3 mg/dL) 0.2 AST (17 - 59 U/L) 12 L ALT (21 - 72 U/L) 32 Albumin (3.5 - 5.0 g/dL) 1.6 L Hematology CBC w Diff MAN DIFF ORDERED WBC (4.8 - 10.8 /CUMM) 11.1 H RBC (4.70 - 6.10 /CUMM) 2.87 L Hgb (14.0 - 18.0 G/DL) 8.2 L Hct (42 - 52 %) 25.9 L MCV (80.0 - 94.0 FL) 90.4 MCH (27.0 - 31.0 PG) 28.7 RDW (11.5 - 14.5 %) 18.3 H Plt Count (130 - 400 /CUMM) 270 MPV (7.4 - 10.4 FL) 8.7 Gran % (42.2 - 75.2 %) 86.6 H Lymphocytes % (20.5 - 51.1 %) 7.5 L Monocytes % (1.7 - 9.3 %) 4.9 Eosinophils % (0 - 5 %) 0.7 Basophils % (0.0 - 2.0 %) 0.3 Absolute Granulocytes (1.4 - 6.5 /CUMM) 9.6 H Segmented Neutrophils (42.2 - 75.2 %) 80 H Band Neutrophils (0.0 - 5.0 %) 10 H Absolute Lymphocytes (1.2 - 3.4 /CUMM) 0.8 L Lymphocytes (20.5 - 51.1 %) 6 L Monocytes (1.7 - 9.3 %) 2 Absolute Monocytes (0.10 - 0.60 /CUMM) 0.5 Absolute Eosinophils (0.0 - 0.7 /CUMM) 0.1 Absolute Basophils (0.0 - 0.2 /CUMM) 0 Metamyelocytes (0.0 - 1.0 %) 2 H Platelet Estimate (ADEQUATE) ADEQUATE Polychromasia 1+ Hypochromic-Microcytic 1+ Poikilocytosis 1+ PUBS MCHC (33.0 - 37.0 G/DL) 31.8 L Assessment/Plan Assessment/Plan Imp: 1. Large pelvic mass with fistulization from bowel to mass and subsequently to bladder Plan: 1. Irrigate price q shift with 30-60 cc of normal saline or sterile water 2. If unable to keep present price patent then would need to change price to a larger size but would not do that unless absolutely necessary Consult Acknowledgment - Thank you for your consult request.
[2017-03-15 08:00] VITALS: BP 96/60
[2017-03-15 12:42] LABS: ABSOLUTE BASOPHIL COUNT 0 /CUMM (0.0-0.2); ABSOLUTE EOSINOPHIL COUNT 0.3 /CUMM (0.0-0.7); ABSOLUTE GRANULOCYTE CT 11.4 /CUMM (1.4-6.5); ABSOLUTE LYMPH COUNT 0.9 /CUMM (1.2-3.4); ABSOLUTE MONOCYTE COUNT 0.5 /CUMM (0.10-0.60); BASOPHIL % 0.1 % (0.0-2.0); HEMATOCRIT 26.7 % (42-52); MEAN CORPUSCULAR HGB 28.9 PG (27.0-31.0); MEAN CORPUSCULAR HGB CONC 32.4 G/DL (33.0-37.0); MEAN CORPUSCULAR VOLUME 89.2 FL (80.0-94.0); MEAN PLATELET VOLUME 8.8 FL (7.4-10.4); PLATELET COUNT 291 /CUMM (130-400); RBC DISTRIBUTION WIDTH 17.6 % (11.5-14.5); WHITE BLOOD CELL COUNT 13.1 /CUMM (4.8-10.8)
[2017-03-15 13:14] LABS: GRANULOCYTE % 87.6 % (42.2-75.2)
--- NOTE | 2017-03-15 14:19 | NUR ---
PT INCONTINENT OF LARGE LIQUID HEM + STOOL. DR FERREIRA NOTOFIED. BP 90/60, CBC, TYPE AND SCREEN OBTAINED. WAITED FOR CBC RESULTS TO TRANSFER PT TO 1NO. H/H STABLE. PER DR FERREIRA, OK TO TRANSFER.
--- NOTE | 2017-03-15 14:28 | Transfer of Care Summary ---
Hospital Course Course Hospital Course: Mr. 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 He was brought in by ambulance to the emergency department after feeling fatigued and dyspneic and having a dark tarry stool. He states that he has never had any previous gastrointestinal bleeding. He is Lovenox for anticoagulation after a pulmonary embolism diagnosed in June 2014. He was admitted to the ICU as he did have a component of septic/hypovolemic shock and required pressor support with Levohed. He was initially hesitant to undergo workup, initially requesting not to undergo endoscopy or any subspecialty evaluation. He did eventually agree and was evaluated by gastroenterology, cardiology, as well as urology. Significant Procedures: Procedure Date: 03/12/17 Procedure Type: EGD License Registration Examiner: CHRISTOPHER PONCE MD Procedure: Upper endoscopy to the third portion of the duodenum, was performed with the Olympus high definition videoendoscope, after obtaining informed consent from the patient, with the apigee developer and pulse oximeter, with the assistance of Dr. Haynes, of [facility]. A mouthpiece was placed in the usual fashion to protect the patient's teeth. The patient was placed in the left lateral decubitus position and sedated by [facility]. At this point , the endoscope was advanced from the mouth into the esophagus, using direct visualization technique. I did not get a good look at the vocal cords. There was suggestion of some cricopharyngeal hypertrophy, but no definite upper esophageal web was seen. The proximal esophageal mucosa appeared normal. There were no esophageal lesions, strictures, or ulcers. There was no monilia or vesicles. There was no esophageal ribbing. The Z line was well demarcated at 35 cm, with an incidental widely patent lower esophageal ring at the Z line, which was left intact. There was a 5 cm hiatal hernia pouch, from 35-40 cm, which appeared to have mixed sliding & paraesophageal components. There were no Willam erosions. No significant esophageal inflammation was seen. There were no ectopic islands, nor gross Fajardo's esophagus. There were no esophageal or gastric varices, nor any Luci Carlson tear. The mccoy of the stomach distended normally with air insufflation. Direct and retroflexed views of the stomach were performed. There was nothing endoscopically to suggest gastroparesis or portal gastropathy. The mucosa of the gastric cardia, fundus, lesser curvature, incisura, body, and antrum appeared normal, without any gastric ulcers or gastric lesions, aside from a few 2 mm sessile gastric polyps at the lesser curvature, which were left intact. The pylorus was patent, without any gastric outlet obstruction or channel ulcer. The duodenal bulb was normal, except for suggestion of some mild Robbi's gland hypertrophy vs. gastric metaplasia, which was left intact. The duodenal sweep & third portion of the duodenum appeared normal, without any duodenal ulcers, distal ulcerations, or angiodysplasias. I was not able to see the ampulla with the direct- viewing scope. The folds of the second & third portions of the duodenum were normal in caliber, without any flattening, nodularity, scalloping, or mosaic pattern. Bile was seen in the second & third portions of the duodenum, without any blood. No active upper GI bleeding was seen. The patient tolerated the procedure well. Impression: 1. 5 cm mixed sliding & paraesophageal hiatal hernia, from 35-40 cm, without any Willam erosions. 2. Incidental, patent lower esophageal ring at the Z line at 35 cm, left intact. 3. Few scant 2 mm sessile gastric polyps at lesser curvature, left intact. 4. Probable Robbi gland hypertrophy vs. gastric metaplasia in duodenal bulb, left intact. 5. Otherwise, negative EGD to the third portion of the duodenum. No active upper GI bleeding seen. Pertinent Lab Results: SERVICE DATE: 03/12/17- EXAM TYPE: CAT - CT ABD & PELVIS W ORAL & IV CO EXAMINATION: CT ABDOMEN AND PELVIS WITH CONTRAST CLINICAL INFORMATION: Abdominal pain. Stool in urine. COMPARISON: Multiple prior studies, most recently 02/17/2017 TECHNIQUE: Multidetector volumetric imaging was performed of the abdomen and pelvis before and after the IV administration of 94 mL of Optiray 320 intravenous contrast. Sagittal and coronal reformatted images were obtained on the technologist's workstation. DLP: 884 mGy-cm FINDINGS: LUNG BASES: There are moderate bilateral pleural effusions with compressive atelectasis of the lower lobes. These are similar to mildly increased from prior. Coronary artery calcifications noted. LIVER, GALLBLADDER, AND BILIARY TREE: The liver is normal in size, shape, and attenuation. No focal hepatic lesion or biliary ductal dilatation is present. The gallbladder is unremarkable with no evidence of radiopaque gallstones, gallbladder wall thickening, or obvious pericholecystic inflammatory changes. The gallbladder extends to the periphery of the right lobe of the liver. PANCREAS: Unremarkable. SPLEEN: Unremarkable. ADRENAL GLANDS: Right adrenal 1.6 cm nodule is unchanged. Left adrenal 1.6 cm nodule is unchanged. KIDNEYS AND URETERS: The kidneys are symmetric in size with symmetric nephrograms. Mild fullness of the left collecting system is noted. This appears somewhat improved from previous. BLADDER: The bladder is decompressed with a Sanchez catheter in place. This limits evaluation for fistulization. The enteric contrast within the bowel extends to the rectum. There is the appearance of extension of enteric contrast into the central pelvic mass. GASTROINTESTINAL TRACT: Moderate hiatal hernia. The small bowel is nonobstructed. Contrast extends throughout the colon. As mentioned above, it appears that there is contrast extending from the region of the sigmoid colon into the central pelvic mass. The mass is significantly heterogeneous with multiloculated fluid components and air-fluid levels. The degree of gas within the mass appears to have increased from prior. The mass currently measures 17.6 cm transverse by 16.9 cm AP by 16.3 cm CC. The overall size is fairly similar to priors. It is conceivable that there is fistulization through the mass from the colon to the bladder resulting in stool within the urine, although this is not well demonstrated. Additional areas of high attenuation are seen in the right superior posterior aspect of the mass which is new from previous. ABDOMINAL WALL: Extensive anasarca. No hernia seen. LYMPH NODES: Normal. VASCULAR: Unremarkable. PELVIC VISCERA: The prostate is not well evaluated due to the prominent pelvic mass. OSSEOUS STRUCTURES: Degenerative changes of the spine with mild compression deformity at L4, similar to prior. IMPRESSION: Prominent central pelvic mass is again demonstrated. There is internal high attenuation within the cystic components which is new from prior study and likely associated with fistulization with the bowel, as enteric contrast was utilized for this study. The mass also abuts the bladder which is decompressed. It is conceivable that there is additional fistulization with the bladder resulting in stool within the urine, although this is not fully demonstrated. Bilateral adrenal gland nodules again noted. No bowel obstruction. Assessment/Plan: While in ICU he was treated for: Shock * This was thought to be most likely secondary to acute blood loss anemia versus a sepsis etiology as his admission labs did show leukocytosis of 21,600. Aside from temperature on admission of 100.5, he was afebrile for his ICU course. He was initially empirically treated with vancomycin and ceftazidime, however was transitioned to Unasyn. He is currently on day 3 of Unasyn. 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 * 1 out of 2 blood culture bottles did grow Escherichia coli, and his urine grew multiple organisms including Escherichia coli and VRE. * He was evaluated by urology for his colovesicular fistula, and if stable he would need surgery for possibly a diverting colostomy proximal to the fistula, if he were to undergo debulking surgery for his pelvic mass. Acute blood loss anemia * Prior to admission and once in the emergency department, the patient did have a dark tarry bowel movement which was guaiac positive. * He was started on a Protonix drip after a bolus and kept nothing by mouth initially. He initially refused intervention and evaluation by gastroenterology however agreed later on and eventually underwent an upper endoscopy, which revealed no active GI bleeding. A hiatal hernia was noted without any Willam erosions. Previous pulmonary embolism * Upon questioning the patient regarding his pulmonary embolism, which he was diagnosed with an 2014, he stated that he felt it took place after surgery where he was not as active as he normally was. I did note that he is on Lovenox, which probably contributed to his acute blood loss anemia, however as this would be considered a provoked pulmonary embolism, after discussion with Dr. Conrad, we feel that if this is indeed the cause of his pulmonary embolism, he does not need further anticoagulation. * This will also prevent any worsening of his blood loss anemia. Intra-abdominal mass * Abdominopelvic CT scan ordered and results pasted above. * Definitive treatment would be an ex-lap with diverting colostomy, and possibly a cystectomy with reconstruction/diversion. * He was previously evaluated by surgery at [facility], who felt that this was a procedure that would require specialty care at [facility], and the patient was actually transferred from [facility] on his last admission for further workup, however per the patient's brother, he was not stable enough for surgery. * I did ask the patient's brother to reach out to the surgery team immediately again for further evaluation. Alimentary * The patient was on parenteral feeding with TPN prior to admission. Upon admission, his right PIC line was found to be occluded and could not be used. After having the endoscopy, he was deemed able to restart a diet and he has been placed on a by mouth diet however he has not been having good intake as evidenced by his weakness and albumin/pre-albumin levels. * I did speak with him, and he would like to restart TPN. A nutrition consult has been placed. Please look for recommendations tomorrow and please order TPN feeds before 12pm. Tachycardia * After stopping the levophed, his vitals remained stable. 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 * He remained in sinus tach for most of the ICU stay and was started on 12.5mg BID of metoprolol to be titrated upwards or downwards depending on his vitals.
[2017-03-15 14:36] VITALS: BP 80/55
--- NOTE | 2017-03-15 17:26 | PN- Cardiology ---
Subjective Subjective: * Patient said " Hi and Goodby." On further questioning he denies any complaints. * potassium is 3.4 * persistent anemia * increased WBC count to over 13 Objective Vital Signs and I&Os Vital Signs Date Time Temp Pulse Resp B/P B/P Pulse O2 O2 Flow FiO2 Mean Ox Delivery Rate 03/15 1651 Nasal 2.0L Cannula 03/15 1647 Nasal 2.0L Cannula 03/15 1436 97.8 112 18 80/55 98 03/15 1147 95 Nasal 2.0L Cannula 03/15 0821 118 96/60 03/15 0800 97 Nasal 2.0L Cannula 03/15 0800 97.1 130 22 96/60 97 Nasal 2.0L Cannula 03/15 0000 98 Nasal 2.0L Cannula 03/15 0000 97.8 114 16 100/62 98 Nasal 2.0L Cannula 03/14 2140 95 Nasal 2.0L Cannula Intake & Output 03/15 1600 03/15 0800 03/15 0000 03/14 1600 03/14 0800 03/14 0000 Intake Total 600 700 749 520 357 Output Total 250 100 410 194 120 Balance 350 600 339 326 237 Intake, IV 200 300 549 280 237 Intake, Oral 400 400 200 240 120 Number 2 2 3 2 2 Bowel Movements Output, Urine 250 100 410 194 120 Patient 239 lb Weight Weight Bed scale Measurement Method Physical Exam: General: WD/overweight male in NAD; not allowing physical exam Extremities: 3+ lower extremity edema and 3+ right arm edema with 2+ left arm edema Assessment/Plan Assessment/Plan * This patient has a low BP at his baseline along with tachycardia. 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 His recent blood loss is also contributing to hypotension. He is doing better following his blood transfusion. This patient need to maintain adequate filling pressures and will not tolerate overdiuresis very well. Although, I do think he is fluid overloaded I do not think we can begin diuresis at this time. Continue low dose Metoprolol for now. T4 is a bit low. * This patient has a decreased EF compared with a prior echo. 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 Myocardial ischemia cannot be excluded. Anemia is also a likely contributor to his tachycardia. In consideration of the patient's prior history of PE and his hemodynamic status this patient may have had a PE but he is not a candidate for anticoagulation at this point in time. * Please replete potassium. Continue telemetry? Yes
[2017-03-15 22:11] VITALS: BP 88/48
[2017-03-16 01:48] VITALS: BP 90/55
--- NOTE | 2017-03-16 01:57 | NUR ---
PT HAVING BLOODY LIQUID BM'S Q30MIN APPROX. BP 90/55 AT [address]130. PALE IN COLOR. DR. FITZPATRICK AWARE. WILL DRAW CBC AT 0230. WILL CTM.
[2017-03-16 02:54] LABS: ABSOLUTE BASOPHIL COUNT 0 /CUMM (0.0-0.2); ABSOLUTE EOSINOPHIL COUNT 0 /CUMM (0.0-0.7); ABSOLUTE GRANULOCYTE CT 10.2 /CUMM (1.4-6.5); ABSOLUTE LYMPH COUNT 0.8 /CUMM (1.2-3.4); ABSOLUTE MONOCYTE COUNT 0.4 /CUMM (0.10-0.60); BASOPHIL % 0.1 % (0.0-2.0); EOSINOPHIL % 0.4 % (0-5); HEMATOCRIT 26.5 % (42-52); MEAN CORPUSCULAR HGB 29.2 PG (27.0-31.0); MEAN CORPUSCULAR HGB CONC 32.2 G/DL (33.0-37.0); MEAN CORPUSCULAR VOLUME 90.7 FL (80.0-94.0); MEAN PLATELET VOLUME 8.9 FL (7.4-10.4); PLATELET COUNT 294 /CUMM (130-400); RBC DISTRIBUTION WIDTH 18.2 % (11.5-14.5); RED BLOOD CELL CT 2.93 /CUMM (4.70-6.10); WHITE BLOOD CELL COUNT 11.5 /CUMM (4.8-10.8)
[2017-03-16 02:57] LABS: GRANULOCYTE % 88.5 % (42.2-75.2)
[2017-03-16 07:11] VITALS: BP 86/50
--- NOTE | 2017-03-16 07:27 | PN- Housestaff ---
RICK SOSA,GRETCHEN 03/16/17 0726: Subjective Follow-up For: 1. Shock 2. GI bleed 3. Complicated urinary tract infection 4. Pseudomyxoma peritonei 5. History of seizures Complaints: SOB Tele-Events Since Last Visit: SINUS TACHCARDIA -112, NO EVENTS Subjective: i have personally examined the patient at bed side , he was disoriented and somnolent Review of Systems Constitutional: Denies: see HPI. Objective Last 24 Hrs of Vital Signs/I&O Vital Signs Date Time Temp Pulse Resp B/P B/P Pulse O2 O2 Flow FiO2 Mean Ox Delivery Rate 03/16 0711 98.0 118 22 86/50 97 Nasal Cannula 03/16 0148 90/55 03/16 0000 Nasal 2.0L Cannula 03/15 2211 98.0 116 18 88/48 91 Nasal 1.0L Cannula 03/15 1957 95 Nasal 1.0L Cannula 03/15 1651 Nasal 2.0L Cannula 03/15 1647 Nasal 2.0L Cannula 03/15 1600 98 Nasal 2.0L Cannula 03/15 1436 97.8 112 18 80/55 98 03/15 1400 Nasal 2.0L Cannula 03/15 1147 95 Nasal 2.0L Cannula 03/15 0821 118 96/60 03/15 0800 97 Nasal 2.0L Cannula 03/15 0800 97.1 130 22 96/60 97 Nasal 2.0L Cannula Intake & Output 03/16 0800 03/16 0000 03/15 1600 Intake Total 350 840 660 Output Total 250 300 Balance 100 540 660 Intake, IV 200 600 600 Intake, Oral 50 240 60 Intake, Other 100 Number 3 3 Bowel Movements Output, Urine 250 300 Physical Exam General Appearance: Oriented X3, Cooperative, No Acute Distress, disoriented Skin: No Rashes, No Breakdown, No Significant Lesion HEENT: Atraumatic, PERRLA, EOMI, Mucous Membr. moist/pink Neck: Supple Cardiovascular: Normal S1, Normal S2, No Murmurs Lungs: Clear to Auscultation, Normal Air Movement Abdomen: Normal Bowel Sounds, Soft, tender Extremities: RUE edema, bilateral 2+ edema Assessment/Plan Assessment: Mr Carrion is a 61-year-old man with a past history of abdominal mucinous intraepithelial neoplasm status post partial resection ([facility] 11/2016 -exploratory lap with right hemicolectomy with reanastomosis; primary mass left in place due to invasion into the bladder wall, follow-up karina surgery), pulmonary embolism (on Lovenox), chronic iron deficiency anemia, 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 In the last 24 hours, vitals stable, who remains on pressor support, minimal 1-2 mcg/m of Levophed. Overnight, he had quick runs of SVT. Also had urinary obstruction likely from fecal material blocking the Price catheter outlet. Problem List/Assessment and Plan #pleural effusion -improved. Now saturating in the high 90s on 2 L oxygen-nasal cannula -CXR showed BL pleural effusions. Clinically, he is fluid overloaded, but will continue to hold off the lasix for hypotension. -Continue to monitor in telemetery -strict Is and Os, daily weights -Hx of PE in 2013 but this was provoked ,so he doesn't need anticoagulant currently , as his H&H is low #septicemia: 1/2 bottles growing e. coli with urine growing e. 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 On Unasyn 1.5q6h day 4 Afebrile and leukocytosis slowly improving. Uro consult appreciated. No intervention now as the price is draining. We will consider changing it to a larger slovak if necessary. #Hypotension: either due to heart failure due to tachycardia 2/2 severe anemia, vs compression on the IVC by huge intra-abdominal tumor. currently BP stable off levophed. continue po midodrine low dose metoprolol 6.25 po We will also consider a dose of lasix, after an infusion of albumin to increase diuresis if BP tolerates #Anemia * H/H 8.2/25.9, slightly down from 8.5/26.9 * Dc levonox #hypoalbuminemia: - Albumin 1.6. Pre-albumin 4 -pt is agreeable to resume his TPN -albumin transfusion -s/p EGD, which did not reveal any bleeding ulcers. Contiues to have dark stools but H/H stable. # history of epilepsy: * Continue anti-epileptic meds DVT ppx: mechanical Diet: TPN DNR/DNI POA is most likely is his brother( discussed that with his family caseworker) Elvin Carrion [phone] Problem List: 1. GI bleed 2. Shock 3. Complicated urinary tract infection 4. History of seizures 5. Pseudomyxoma peritonei 6. Sepsis 7. 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 Multifocal atrial tachycardia 10. Hypoalbuminemia 11. Anemia Pain Ratin Pain Location: n/a Pain Goal: Remain pain free Pain Plan: tylenol Tomorrow's Labs & Rationales: n/a DVT/Prophylaxis: KAROLINA Carmona MD 03/16/17 2215: Attending MD Review Statement Attending Statement Attending MD Statement: examined this patient, discuss w/resident/PA/[employer]GER, agreed w/resident/PA/[employer], reviewed EMR data (avail), discussed with case mgmt, amended to note Attending Assessment/Plan: The patient was seen and discussed with house staff. Agree with the plan of care as outlined. TPN restarted. Note the patient has been on TPN since 02/05 and albumen and pre-albumen still low. Suspect partially artifactually low as blood may have been drawn while IV fluids running. Will discuss with Nutrition. Will Discuss with Dr. Bajwa. [place] [facility] had wished building up nutrition prior to having surgical intervention.
[2017-03-16 14:37] VITALS: BP 90/60
--- NOTE | 2017-03-16 15:32 | PN- Psychiatry ---
Assessment/Plan Impression: Identifying Info: 61-year-old single male known to this service presents to [facility] on 03/10/17 with SOB, fatigue, and dark colored stools. Now on telemetry. SUBJECTIVE Patient states "I don't want anyone to touch me." At present he is unsure why he is in the hospital. He is unable to verbalize what his medical problem is and what his treatment options are. He is endorsing confusion. Brief ROS Gait: Not observed Sleep: Fair Appetite: Poor OBJECTIVE Mental Status Exam Presentation/Appearance: Cooperative with evaluation. Hospital garb. Calm. Lying in bed. Orientation: To self and place, unable to identify day of the week, date or month Sensorium: Awake and alert Eye contact: Appropriate Affect: Restricted Mood: "Not good" Irritable Depression: Denies Anxiety: Endorses, 01/06 Thought Content: - Denies SI/HI, AH/VH, PI. States and also believes they will not kill themselves. - Denies Hopeless/Helpless Thoughts Thought Process: Endorses confusion throughout the day, able to answer some questions appropriately. Associations: Primarily appropriate, loose at times Speech: Somewhat monotone Judgment: Fair Insight: Fair Cognition: Memory: Deficits noted Attention/Concentration: Fair Fund of Knowledge: Adequate Abstractions:[place] MMSE: Not assessed today. 23/28 on 03/12 (written response questions omitted due to edema to R hand), on last exam 3 weeks ago patient scored 26/30, no significant changes, again deficits in questions r/t immediate recall, no major cognitive impairment at that time. 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 He presents as confused at this time. His mentation is markedly altered from interview 3 days ago. At present he cannot identify what his medical problems are, what treatment options are, or risks and benefits of potential courses of treatment. He currently lacks healthcare decision-making capacity. 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 Suggestion: 1. Please defer to next of kin or legal healthcare technical account representative at this time for health care decision making. Please contact psychiatry as needed if specific questions of capacity arise. 2. Continue psychotropics as currently ordered, utilizing lorazepam with caution. 3. Please continue to avoid benzodiazepines, opioid analgesics, and meds with strong anticholinergic properties as much as possible to prevent further confusion. 4. Please initiate the following nonpharmacologic interventions: -Avoid nursing and medical procedures during sleep hours whenever possible - Cluster at night interventions that must be completed as much as possible to minimize sleep disruption - Decrease noise patient area during sleeping hours - Reduce lighting at night - Ensure patient has any sensory aids close by that he regularly uses 5. Consider melatonin 10mg qhs. Thank you for including psychiatry in this case will continue to follow. Subjective Subjective: as above Objective Last 24 Hrs of Vital Signs/I&O Current Medications Sig/Ghulam Start time Last Medication Dose Route Stop Time Status Admin Acetaminophen 650 MG Q6P PRN 03/12 1630 AC PO Albuterol Sulfate 3 ML Q4P PRN 03/12 1115 AC INH Albuterol Sulfate 3 ML Q6H PRN 03/11 0930 AC INH Alprazolam 0.25 MG BID PRN 03/11 0930 AC PO 03/18 0929 Ampicillin Sodium/ 1,500 MG Q6H 03/13 2030 AC 03/16 Sulbactam Sodium IV 1523 Sodium Chloride 100 ML Fat Emulsion 250 ML Q24H 03/16 1900 AC Intravenous IV 03/17 1859 Levetiracetam 1,000 MG BID 03/16 1000 AC 03/16 PO 0953 Levetiracetam 1,000 MG Q12 03/11 2252 DC 03/15 N/A 1 UNIT IV 2245 Lorazepam 0.5 MG BID PRN 03/12 1330 AC 03/15 PO 03/19 1329 0537 Metoprolol Tartrate 6.25 MG BID 03/15 2200 AC PO Metoprolol Tartrate 12.5 MG BID 03/15 1237 DC PO Midodrine 2.5 MG 0800,1200,1600 03/15 1915 AC 03/16 PO 1529 Morphine Sulfate 2 MG Q6P PRN 03/12 1630 AC 03/15 IV 1203 Norepinephrine 4 MG Q24H 03/14 0900 DC Sodium Chloride 250 ML IV Omeprazole 40 MG DAILY AC 03/13 0700 AC 03/16 PO 0655 Ondansetron HCl 4 MG Q6P PRN 03/11 0930 AC IV Phenytoin 200 MG BID 03/16 1000 AC 03/16 PO 0952 Phenytoin 200 MG BID 03/11 2253 DC 03/15 Sodium Chloride 50 ML IV 2302 Potassium Chloride 20 MEQ BID 03/16 1235 AC 03/16 PO 1312 Sertraline HCl 150 MG QPM 03/12 2200 AC 03/15 PO 2156 Sodium Chloride 500 ML BOLUS ONE 03/15 1545 DC 03/15 IV 03/15 1644 1445 Total Parenteral 1 UNIT 1900 03/16 1900 AC Nutrition IV 03/17 1859 Trazodone HCl 50 MG AT BEDTIME 03/11 220 AC 03/15 PO 2156 Laboratory Tests 03/16/17 0215: Anion Gap 8, Estimated GFR > 60, BUN/Creatinine Ratio 47.1 H, CBC w Diff NO MAN DIFF REQ, RBC 2.93 L, MCV 90.7, MCH 29.2, RDW 18.2 H, MPV 8.9, Gran % 88.5 H, Lymphocytes % 7.3 L, Monocytes % 3.7, Eosinophils % 0.4, Basophils % 0.1, Absolute Granulocytes 10.2 H, Absolute Lymphocytes 0.8 L, Absolute Monocytes 0.4, Absolute Eosinophils 0, Absolute Basophils 0, PUBS MCHC 32.2 L 03/15/17 1200: CBC w Diff NO MAN DIFF REQ, RBC 3.00 L, MCV 89.2, MCH 28.9, RDW 17.6 H, MPV 8.8, Gran % 87.6 H, Lymphocytes % 6.6 L, Monocytes % 3.7, Eosinophils % 2.0, Basophils % 0.1, Absolute Granulocytes 11.4 H, Absolute Lymphocytes 0.9 L, Absolute Monocytes 0.5, Absolute Eosinophils 0.3, Absolute Basophils 0, PUBS MCHC 32.4 L 03/15/17 0405: Anion Gap 8, Estimated GFR > 60, Glucose 79, Calcium 7.7 L, Phosphorus 3.5, Magnesium 1.8, Total Bilirubin 0.2, AST 12 L, ALT 32, Albumin 1.6 L, Prealbumin 4.0 L, CBC w Diff MAN DIFF ORDERED, RBC 2.87 L, MCV 90.4, MCH 28.7, RDW 18.3 H, MPV 8.7, Gran % 86.6 H, Lymphocytes % 7.5 L, Monocytes % 4.9, Eosinophils % 0.7, Basophils % 0.3, Absolute Granulocytes 9.6 H, Segmented Neutrophils 80 H, Band Neutrophils 10 H, Absolute Lymphocytes 0.8 L, Lymphocytes 6 L, Monocytes 2, Absolute Monocytes 0.5, Absolute Eosinophils 0.1, Absolute Basophils 0, Metamyelocytes 2 H, Platelet Estimate ADEQUATE, Polychromasia 1+, Hypochromic-Microcytic 1+, Poikilocytosis 1+, PUBS MCHC 31.8 L 03/14/17 0433: Anion Gap 10, Estimated GFR > 60, Glucose 84, Calcium 7.8 L, Phosphorus 3.7, Magnesium 1.9, Total Bilirubin 0.3, AST 16 L, ALT 36, Albumin 1.7 L, CBC w Diff NO MAN DIFF REQ, RBC 3.01 L, MCV 89.3, MCH 28.3, RDW 18.0 H, MPV 9.1, Gran % 87.0 H, Lymphocytes % 7.8 L, Monocytes % 4.7, Eosinophils % 0.4, Basophils % 0.1, Absolute Granulocytes 10.0 H, Absolute Lymphocytes 0.9 L, Absolute Monocytes 0.5, Absolute Eosinophils 0, Absolute Basophils 0, PUBS MCHC 31.7 L Vital Signs Date Time Temp Pulse Resp B/P B/P Pulse O2 O2 Flow FiO2 Mean Ox Delivery Rate 03/16 1437 97.8 110 18 90/60 97 Nasal 1.0L Cannula 03/16 0954 80 88/64 03/16 0922 93 Nasal 1.0L Cannula 03/16 0845 95 Nasal 2.0L Cannula 03/16 0711 98.0 118 22 86/50 97 Nasal Cannula 03/16 0148 90/55 03/16 0000 Nasal 2.0L Cannula 03/15 2211 98.0 116 18 88/48 91 Nasal 1.0L Cannula 03/15 1957 95 Nasal 1.0L Cannula 03/15 1651 Nasal 2.0L Cannula 03/15 1647 Nasal 2.0L Cannula 03/15 1600 98 Nasal 2.0L Cannula Intake & Output 03/16 1600 03/16 0800 03/16 0000 Intake Total 300 350 840 Output Total 500 250 300 Balance -200 100 540 Intake, IV 100 200 600 Intake, Oral 200 50 240 Intake, Other 100 Number 2 3 3 Bowel Movements Output, Urine 500 250 300
[2017-03-16 22:54] VITALS: BP 98/64
[2017-03-17 06:56] VITALS: BP 100/64
[2017-03-17 14:22] VITALS: BP 104/72
--- NOTE | 2017-03-17 14:53 | PN- Psychiatry ---
Assessment/Plan Impression: Identifying Info: 61-year-old single male known to this service presents to [facility] on 03/10/17 with SOB, fatigue, and dark colored stools. Now on telemetry. SUBJECTIVE Patient states "I'm alright, I feel much better today... I just want to sleep." He reports decreased feelings of confusion. He is unable to state his what his treatment is or what the risks or benefits are. Brief ROS Gait: Not observed Sleep: Fair Appetite: Poor OBJECTIVE Mental Status Exam Presentation/Appearance: Cooperative with evaluation briefly but declines full interview due to somnolence. Hospital garb. Calm. Lying in bed. Orientation: To self and place Sensorium: Somnolent but easy to arouse Eye contact: Appropriate Affect: Restricted Mood: "Alright" Depression: Denies Anxiety: Denies Thought Content: - Denies SI/HI, AH/VH, PI. States and also believes they will not kill themselves. - Denies Hopeless/Helpless Thoughts Thought Process: Confusion improved but remains Associations: Primarily appropriate, loose at times Speech: Somewhat monotone Judgment: Fair Insight: Fair Cognition: Memory: Deficits noted Attention/Concentration: Fair Fund of Knowledge: Adequate Abstractions:[place] MMSE: Not assessed today. 23/28 on 03/12 (written response questions omitted due to edema to R hand), on last exam 3 weeks ago patient scored 26/30, no significant changes, again deficits in questions r/t immediate recall, no major cognitive impairment at that time. Per nursing and house staff report patient mentation appears to be improving. 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 He presents as confused at this time. While improved his mentation has improved he continues to experience confusion. He continues to lack healthcare decision-making capacity. 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 Suggestion: 1. Please defer to next of kin or legal healthcare policy services representative at this time for health care decision making. Please contact psychiatry as needed if specific questions of capacity arise. 2. Continue psychotropics as currently ordered, utilizing lorazepam with caution. 3. Please continue to avoid benzodiazepines, opioid analgesics, and meds with strong anticholinergic properties as much as possible to prevent further confusion. 4. Please initiate the following nonpharmacologic interventions: -Avoid nursing and medical procedures during sleep hours whenever possible - Cluster at night interventions that must be completed as much as possible to minimize sleep disruption - Decrease noise patient area during sleeping hours - Reduce lighting at night - Ensure patient has any sensory aids close by that he regularly uses Thank you for including psychiatry in this case will continue to follow. Subjective Subjective: as above Objective Last 24 Hrs of Vital Signs/I&O Current Medications Sig/Ghulam Start time Last Medication Dose Route Stop Time Status Admin Acetaminophen 650 MG Q6P PRN 03/12 1630 AC PO Albuterol Sulfate 3 ML Q4P PRN 03/12 1115 AC INH Albuterol Sulfate 3 ML Q6H PRN 03/11 0930 AC INH Alprazolam 0.25 MG BID PRN 03/11 0930 AC PO 03/18 0929 Ampicillin Sodium/ 1,500 MG Q6H 03/13 2030 AC 03/17 Sulbactam Sodium IV 1118 Sodium Chloride 100 ML Fat Emulsion 300 ML Q24H 03/17 1900 AC Intravenous IV 03/18 185 Fat Emulsion 250 ML Q24H 03/16 1900 AC 03/16 Intravenous IV 03/17 185 2025 Levetiracetam 1,000 MG BID 03/16 1000 AC 03/17 PO 1119 Lorazepam 0.5 MG BID PRN 03/12 1330 AC 03/15 PO 03/19 1329 0537 Melatonin 5 MG AT BEDTIME 03/16 2200 AC 03/16 PO 2136 Metoprolol Tartrate 6.25 MG BID 03/15 2200 AC 03/17 PO 1119 Midodrine 2.5 MG 0800,1200,1600 03/15 1915 AC 03/17 PO 1119 Morphine Sulfate 2 MG Q6P PRN 03/12 1630 AC 03/15 IV 1203 Omeprazole 40 MG DAILY AC 03/13 0700 AC 03/17 PO 0642 Ondansetron HCl 4 MG Q6P PRN 03/11 0930 AC IV Phenytoin 200 MG BID 03/16 1000 AC 03/17 PO 1118 Potassium Chloride 20 MEQ BID 03/16 1235 AC 03/17 PO 1119 Sertraline HCl 150 MG QPM 03/12 2200 AC 03/16 PO 2136 Total Parenteral 1 UNIT 03/17 AC Nutrition IV 03/18 1859 Total Parenteral 1 UNIT 03/16 AC 03/16 Nutrition IV 03/17 Trazodone HCl 50 MG AT BEDTIME 03/11 2200 AC 03/16 PO 2136 Vital Signs Date Time Temp Pulse Resp B/P B/P Pulse O2 O2 Flow FiO2 Mean Ox Delivery Rate 03/17 1422 97.4 109 18 104/72 96 Nasal Cannula 03/17 1119 76 100/64 03/17 0800 Nasal 1.0L Cannula 03/17 0656 97.9 76 18 100/64 95 Nasal Cannula 03/16 2254 97.9 118 16 98/64 98 03/16 2252 Nasal 1.0L Cannula 03/16 2136 109 92/60 03/16 1636 94 Nasal 1.0L Cannula Intake & Output 03/17 1600 03/17 0800 03/17 0000 Intake Total 637.0 830.4 Output Total 450 Balance 637.0 380.4 Intake, Lipid 100.0 10.4 Intake, Oral 120 740 Intake, 417 80 TPN/PPN Number 2 4 Bowel Movements Output, Urine 450 Patient 230 lb Weight
--- NOTE | 2017-03-17 16:04 | PN- Housestaff ---
RICK SOSA,GRETCHEN 03/17/17 1542: Subjective Follow-up For: 1. Shock 2. GI bleed 3. Complicated urinary tract infection 4. Pseudomyxoma peritonei 5. History of seizures Complaints: 1-SOB 2-GENERALIZED WEAKNESS 3- LL SWELLING Tele-Events Since Last Visit: SR with PVCs 105-113 Subjective: I have personally examined Mr Sheyla Hunter at bedside, he was lying down , lethargic in no acute distress. Review of Systems Constitutional: Reports: malaise, weakness. Cardiovascular: Reports: edema, peripheral edema. Respiratory: Reports: short of breath. Gastrointestinal: Reports: abdominal pain, bloating. Genitourinary: Reports: dysuria. Neurological/Psychological: Denies: no symptoms. Objective Last 24 Hrs of Vital Signs/I&O Vital Signs Date Time Temp Pulse Resp B/P B/P Pulse O2 O2 Flow FiO2 Mean Ox Delivery Rate 03/17 1422 97.4 109 18 104/72 96 Nasal Cannula 03/17 1119 76 100/64 03/17 0800 Nasal 1.0L Cannula 03/17 0656 97.9 76 18 100/64 95 Nasal Cannula 03/16 2254 97.9 118 16 98/64 98 03/16 2252 Nasal 1.0L Cannula 03/16 2136 109 92/60 03/16 1636 94 Nasal 1.0L Cannula Intake & Output 03/17 1600 03/17 0800 03/17 0000 Intake Total 637.0 830.4 Output Total 450 Balance 637.0 380.4 Intake, Lipid 100.0 10.4 Intake, Oral 120 740 Intake, 417 80 TPN/PPN Number 2 4 Bowel Movements Output, Urine 450 Patient 230 lb Weight Physical Exam General Appearance: Alert, Oriented X3, Cooperative, No Acute Distress Skin: No Rashes, No Breakdown, No Significant Lesion Skin Temp/Moisture Exam: Warm/Dry HEENT: Atraumatic, PERRLA, EOMI, Mucous Membr. moist/pink Neck: Supple Cardiovascular: Normal S1, Normal S2, No Murmurs Lungs: Clear to Auscultation, Normal Air Movement Abdomen: diffusely distended Extremities: bilateral 3+ pitting edema Current Medications: Current Medications Sig/Ghulam Start time Last Medication Dose Route Stop Time Status Admin Acetaminophen 650 MG Q6P PRN 03/12 1630 AC PO Albuterol Sulfate 3 ML Q4P PRN 03/12 1115 AC INH Albuterol Sulfate 3 ML Q6H PRN 03/11 0930 AC INH Alprazolam 0.25 MG BID PRN 03/11 0930 AC PO 03/18 0929 Ampicillin Sodium/ 1,500 MG Q6H 03/13 2030 AC 03/17 Sulbactam Sodium IV 1118 Sodium Chloride 100 ML Fat Emulsion 300 ML Q24H 03/17 190 AC Intravenous IV 03/18 185 Fat Emulsion 250 ML Q24H 03/16 1900 AC 03/16 Intravenous IV 03/17 1859 202 Levetiracetam 1,000 MG BID 03/16 1000 AC 03/17 PO 1119 Lorazepam 0.5 MG BID PRN 03/12 1330 AC 03/15 PO 03/19 1329 0537 Melatonin 5 MG AT BEDTIME 03/16 2200 AC 03/16 PO 2136 Metoprolol Tartrate 6.25 MG BID 03/15 2200 AC 03/17 PO 1119 Midodrine 2.5 MG 0800,1200,1600 03/15 1915 AC 03/17 PO 1119 Morphine Sulfate 2 MG Q6P PRN 03/12 1630 AC 03/15 IV 1203 Omeprazole 40 MG DAILY AC 03/13 0700 AC 03/17 PO 0642 Ondansetron HCl 4 MG Q6P PRN 03/11 0930 AC IV Phenytoin 200 MG BID 03/16 1000 AC 03/17 PO 1118 Potassium Chloride 40 MEQ ONCE ONE 03/17 1530 DC PO 03/17 1531 Potassium Chloride 20 MEQ BID 03/16 1235 AC 03/17 PO 1119 Sertraline HCl 150 MG QPM 03/12 2200 AC 03/16 PO 2136 Total Parenteral 1 UNIT 03/17 190 AC Nutrition IV 03/18 1859 Total Parenteral 1 UNIT 03/16 1900 AC 03/16 Nutrition IV 03/17 1859 202 Trazodone HCl 50 MG AT BEDTIME 03/11 2200 AC 03/16 PO 2136 Last 24 Hrs of Lab/Yuri Results Last 24 Hrs of Labs/Mics: . 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 In the last 24 hours, vitals stable, who remains on pressor support Problem List/Assessment and Plan #pleural effusion -improved. Now saturating in the high 90s on 2 L oxygen-nasal cannula. -CXR showed BL pleural effusions. Clinically, he is fluid overloaded, but will continue to hold off the lasix for hypotension. -Continue to monitor in telemetery -strict Is and Os, daily weights -Hx of PE in 2013 but this was provoked ,so he doesn't need anticoagulant currently , as his H&H is low #septicemia: 1/2 bottles growing e. coli with urine growing e. 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 On Unasyn 1.5q6h day 5 Afebrile and leukocytosis slowly improving. Uro consult appreciated. No intervention now as the price is draining. We will consider changing it to a larger malay if necessary. #Hypotension: -improved blood pressure either due to heart failure due to tachycardia 2/2 severe anemia, vs compression on the IVC by huge intra-abdominal tumor. continue po midodrine low dose metoprolol 6.25 po if needed might consider a dose of lasix as needed after an infusion of albumin to increase diuresis if BP tolerates #Anemia -H/H 8.6/26.5, same as previous few days. -s/p EGD, which did not reveal any bleeding ulcers. Contiues to have dark stools but H/H stable. -Dc levonox #hypoalbuminemia: - Albumin 1.6. Pre-albumin 4 -pt was started on TPN (day 2) # history of epilepsy: -Continue anti-epileptic meds. DVT ppx: mechanical Diet: TPN DNR/DNI POA is most likely is his brother( discussed that with his lead case manager) Elvin Carrion [phone] Problem List: 1. Anemia 2. Hypoalbuminemia 3. GI bleed 4. Shock 5. Complicated urinary tract infection 6. History of seizures 7. Pseudomyxoma peritonei 8. Sepsis 9. Dyspnea 10. Low grade mucinous neoplasm of appendix 11. Multifocal atrial tachycardia Pain Ratin Pain Location: N/A Pain Goal: Remain pain free Pain Plan: tylenol morphine Tomorrow's Labs & Rationales: cbc bep DVT/Prophylaxis: mechanical KAROLINA CHONG MD 03/17/17 7636: Attending MD Review Statement Attending Statement Attending MD Statement: examined this patient, discuss w/resident/PA/WALLCOVERING HANGER, agreed w/resident/PA/WALLCOVERING HANGER, discussed with family, reviewed EMR data (avail), discussed with nursing, discussed with case mgmt, amended to note Attending Assessment/Plan: The patient was seen and discussed with house staff. Agree with plan of care. Will await Nutrition re-evaluation of caloric needs and TPN. Will re-check albumin and pre-albumen. Spoke with Dr. Bajwa and he will see tomorrow. The patient has not been able to get back to [facility] for follow-up evaluation for potential surgery.
--- NOTE | 2017-03-17 20:22 | Event Note ---
Event Note Event Note: Nurse Yair reported Mr. Carrion was tachycardic, SOB with generalized chest pain. On examination I was unable to appreciate lung sounds because of shallow breathing. O2 sat-91%, HR-138 BP-138/78. Respiratory was called. Patient was given 1 dose of Xanax, morphine 2mg IV x 1, BiPAP, TRC nebs. CXR, trop, ECG, D- dimer ordered stat. Patient low threshold for ICU as per morning team. Patient oxygen sat improved to 93% was transferred to ICU stable. D-dimer likely to be high. DD-Pulmonary edema vs. worsening plueral effussion (previous CXR 03/17/17-1949) update: 2:30 am , and Dr. FLORES were updated regarding patient condition. Excision showed bilateral pleural effusion Patient was put on bipap and low dose IV lasix was given. patient o sat was above 90 , SBP 99. Levophed was ordered with parametes of of Systolic blood pressure less than 95. Patient vital signs are relatively stable over the night. D-dimer was 650 which was slightly increased since last d-dimer. Troponin was negative.
[2017-03-17 20:25] LABS: ABSOLUTE MONOCYTE COUNT 1.1 /CUMM (0.10-0.60); EOSINOPHIL % 0.3 % (0-5); MEAN PLATELET VOLUME 8.9 FL (7.4-10.4)
[2017-03-17 20:29] LABS: ABSOLUTE BASOPHIL COUNT 0 /CUMM (0.0-0.2); ABSOLUTE EOSINOPHIL COUNT 0 /CUMM (0.0-0.7); ABSOLUTE GRANULOCYTE CT 12.1 /CUMM (1.4-6.5); ABSOLUTE LYMPH COUNT 4.2 /CUMM (1.2-3.4); BASOPHIL % 0.3 % (0.0-2.0); GRANULOCYTE % 68.9 % (42.2-75.2); MEAN CORPUSCULAR HGB 28.8 PG (27.0-31.0); MEAN CORPUSCULAR HGB CONC 31.3 G/DL (33.0-37.0); PLATELET COUNT 392 /CUMM (130-400); RBC DISTRIBUTION WIDTH 18.7 % (11.5-14.5); RED BLOOD CELL CT 3.44 /CUMM (4.70-6.10)
[2017-03-17 20:30] LABS: HEMATOCRIT 31.6 % (42-52); WHITE BLOOD CELL COUNT 17.5 /CUMM (4.8-10.8)
--- NOTE | 2017-03-17 20:31 | RADIOLOGY REPORT ---
EXAMINATION: XR PORTABLE CHEST CLINICAL INFORMATION: Shortness of breath. COMPARISON: Portable chest 02/09/2017 TECHNIQUE: Portable frontal view of the chest was obtained. 8:06 PM FINDINGS: Patient's rotated to the right. PICC line catheter tip in superior vena cava. Congestive heart failure similar prior exam with pulmonary vascular congestion and large bilateral pleural effusions. IMPRESSION: Congestive heart failure with large bilateral pleural effusions.
--- NOTE | 2017-03-17 21:35 | NUR ---
NURSING NOTE TIME WAS 1940 AND PT REPORTED CHEST PAIN AND DIFFICULTY BREATHING. SENIOR BUYER PLANNER VIKKI AND RESIDENT TROY MADE AWARE. NURSING TEAM TOOK VITALS, LYNNE AND SENT LABS, TOOK EKG & SHOWED RESIDENT MYA. RESP. CALLED AND STARTED WITH A NEB TX. RESOLVED NOTHING SO VIVIANE STARTED ON VENTI MASK SHE SET UP BIPAP. NURSING GAVE XANAX AND THEN MORPHINE ORDERED. PEDIATRIC OCCUPATIONAL THERAPIST MADE AWARE AND PT WAS ADMITTED TO ICU. CXR WAS DONE FIRST AND SHOWED LARGE BILATERAL PULM EFFUSIONS. SET PT UP IN ICU. PT THEN ON BIPAP. REPORT GIVEN TO ICU NURSE.
[2017-03-18] VITALS: BP 104/80
--- NOTE | 2017-03-18 | NUR ---
PATIENT DROWSY,AROUSABLE. ANSWERING QUESTIONS APPROPRIATELY. MONITOR SINUS RHYTHM AT RATE OF 93. ON BIPAP AT 45% WITH O2 SAT OF 98%.NO DYSPNEA NOTED. DECREASED TO 40% BY RESPIRATORY THERAPIST.DRAINING DARK GARETH URINE VIA ACE,70 ML THIS HOUR.R ARM EDEMATOUS,SITE OF PRE-HOSPITAL PICC LINE. STATES ARM HAS BEEN EDEMATOUS.LOWER EXTREMITIES EDEMATOUS.
--- NOTE | 2017-03-18 00:03 | NUR ---
@2030, PT CAME FROM [facility] ON CONTINOUS MONITORING.ORIENTED PT TO SURROUNDING AND PLACED ON BED WITH NO ISSUES. ON CPAP WITH SATS >95%.ABG OBTAINED AND RESULTS WNL.SBP LOW AND RANGING 70-100'S; MADE AWARE.MEDS HELD DUE TO PT NPO.RIGHT ARM PICC INTACT AND TPN/LIPIDS CONT VIA SITE.SEIZURE PRECAUTION MAINTAINED AND KEPPRA/DILANTIN CONT ATC.ACE PATENT WITH DARK BROWN DRAINAGE.GEN EDEMA. SKIN INTACT BUT REDDENED AND BLANCHABLE.PLAN OF CARE REVIEWED.
--- NOTE | 2017-03-18 02:00 | NUR ---
QK=953/70 MANUAL.LASIX 20 MG GIVEN IV.LEVOPHED DRIP ON HOLD,WILL GIVE TO MAINTAIN BP GREATER THAN 95 SYSTOLIC
[2017-03-18 06:44] LABS: ABSOLUTE BASOPHIL COUNT 0 /CUMM (0.0-0.2); ABSOLUTE EOSINOPHIL COUNT 0.1 /CUMM (0.0-0.7); ABSOLUTE GRANULOCYTE CT 7.2 /CUMM (1.4-6.5); ABSOLUTE LYMPH COUNT 1.1 /CUMM (1.2-3.4); ABSOLUTE MONOCYTE COUNT 0.5 /CUMM (0.10-0.60); BASOPHIL % 0.3 % (0.0-2.0); GRANULOCYTE % 80.9 % (42.2-75.2); MEAN CORPUSCULAR HGB 28.8 PG (27.0-31.0); MEAN CORPUSCULAR HGB CONC 31.7 G/DL (33.0-37.0); MEAN CORPUSCULAR VOLUME 90.8 FL (80.0-94.0); MEAN PLATELET VOLUME 8.4 FL (7.4-10.4); PLATELET COUNT 276 /CUMM (130-400); RBC DISTRIBUTION WIDTH 18.7 % (11.5-14.5); RED BLOOD CELL CT 2.92 /CUMM (4.70-6.10); WHITE BLOOD CELL COUNT 8.9 /CUMM (4.8-10.8)
[2017-03-18 06:50] LABS: HEMATOCRIT 26.5 % (42-52)
--- NOTE | 2017-03-18 08:15 | NUR ---
REC'D THE PT AWAKE IN BED. A&OX2, COMPLETELY UNAWARE OF MONTH/DATE/DAY. REORIENTED. LYNN VERY WEAKLY R/T 4+ EDEMA OF BLE AND 2-3+ EDEMA OF BUE, R>L. PT IS IN A NSR WITHOUT ECTOPY PER THE BURR FILER. SHAR BS ARE CLEAR BUT DIMINISHED AT THE BASES. CURRENTLY ON BIPAP AT 30% WITH AN I=16, E=4 AND A RATE OF 22. THE O2 SAT IS 99%. ABD IS SOFT WITH NORMOACTIVE BOWEL SOUNDS. REMAINS ON TPN AT 41.7ML AND LIPIDS AT 10.4ML/HR BOTH INFUSING VIA THE PURPLE PORT OF THE HARDIK PICC. ACE IN PLACE DRAINING YELLOW URINE WITH SEDIMENT NOTED. PT REMAINS ON A LOW FIBER DIET.
--- NOTE | 2017-03-18 08:35 | NUR ---
PHYSICAL THERAPY: HOLD ON P.T. PT TRANSFER TO ICU
--- NOTE | 2017-03-18 08:42 | Cons- Oncology ---
General Information and HPI Consulting Request Date of Consult: 03/18/17 Requested By: KAROLINA CHONG MD Reason for Consult: mucinous epithelial neoplasm Source of Information: patient, old records Exam Limitations: unable to give history, clinical condition History of Present Illness: Mr. Carrion is a 61-year-old male with history of PE on enoxaparin, chronic iron deficiency anemia, mucionous epithelial neoplasm of the abdomen, right hemicolectomy, and multiple admission for tachycardia who presented tot [facility] with dyspnea, tarry stool, and fatigue. His hospital course has been complicated by sepsis, pleural effusion, decondition, malnutrition, and anemia. He was transferred to ICU again for increasing dyspnea. He has missed numerous appointment with surgery at [facility] due to frequent hospitalization. He continues to hypotenison. He has frequent admission for tachycardia. This morning he is on BiPAP. He is unable to answer most questions. Allergies/Medications Allergies: Coded Allergies: NO KNOWN ALLERGIES (01/11/14) Home Med List: Acetaminophen (8 Hour) 650 MG TABLET.ER 1 TAB PO Q4H PRN PAIN/TEMP/> 101 ( Reported) Acetaminophen (Acephen) 650 MG SUPP.RECT 1 SUPP DE Q4H PRN PAIN/TEMP>101 ( Reported) Albuterol Sulfate 2.5 MG/3 ML (0.083 %) VIAL.NEB 1 Vial INH/BRIT Q6H PRN SOB ( Reported) Alprazolam (Xanax) 0.25 MG TABLET 1 TAB PO BID PRN anxiety Bisacodyl 10 MG SUPP.RECT 1 SUP RC DAILY PRN CONSTIPATION (Reported) Diltiazem HCl (Diltiazem 24HR ER) 180 MG CAP.ER.24H 1 CAP PO DAILY tachycardia (Reported) Enoxaparin Sodium (Lovenox) 100 MG/ML SYRINGE 100 MG SC Q12H BLOOD THINNER ( Reported) Ferrous Sulfate 325 MG (65 MG IRON) TABLET 1 TAB PO BID ANEMIA (Reported) Folic Acid 1 MG TABLET 1 TAB PO DAILY SUPPLEMENT (Reported) Levetiracetam (Keppra) 1,000 MG TABLET 1 TAB PO Q12H seizure prophylaxis Loperamide HCl (Imodium A-D) 2 MG TABLET 1 TAB PO Q6H PRN LOOSE STOOL ( Reported) Magnesium Hydroxide (Milk Of Magnesia) 400 MG/5 ML ORAL.SUSP 30 ML PO DAILY PRN CONSTIPATION (Reported) Magnesium Oxide 400 MG TABLET 400 MG PO BID hypomagnesemia Metoprolol Tartrate (Lopressor) 50 MG TABLET 75 MG PO BID HTN/TACYHCARDIA ( Reported) Multivitamin (Daily Multiple Vitamin) 1 EACH TABLET 1 TAB PO DAILY SUPPLEMENT (Reported) Na Phos,M-B/Na Phos,Di-Ba (Fleet Enema) 19 GRAM-7 GRAM/118 ML ENEMA 1 E RC DAILY PRN CONSTIPATION (Reported) Omeprazole 40 MG CAPSULE.DR 1 CAP PO DAILY acidity Ondansetron HCl 4 MG TABLET 1 TAB PO Q6P PRN N/V (Reported) Oxybutynin Chloride 5 MG TABLET 1 TAB PO DAILY (Reported) Phenytoin Sodium Extended 100 MG CAPSULE 2 CAP PO BID SEIZURES (Reported) Sertraline HCl (Zoloft) 100 MG TABLET 1 TAB PO QPM DEPRESSION (Reported) [TPN] TPN (Reported) Trazodone HCl 50 MG TABLET 1 TAB PO QHS INSOMNIA (Reported) Current Medications: Current Medications Sig/Ghulam Start time Last Medication Dose Route Stop Time Status Admin Acetaminophen 650 MG Q6P PRN 03/12 1630 AC PO Albuterol Sulfate 3 ML Q4P PRN 03/12 1115 AC INH Albuterol Sulfate 3 ML Q6H PRN 03/11 0930 AC 03/17 INH 1949 Alprazolam 0.25 MG BID PRN 03/11 0930 AC 03/17 PO 03/18 0929 1942 Ampicillin Sodium/ 1,500 MG Q6H 03/13 2030 AC 03/18 Sulbactam Sodium IV 0204 Sodium Chloride 100 ML Fat Emulsion 300 ML Q24H 03/17 1900 AC 03/17 Intravenous IV 03/18 1859 2148 Fat Emulsion 250 ML Q24H 03/16 1900 LA 03/16 Intravenous IV 03/17 1859 2025 Furosemide 20 MG ONCE ONE 03/18 0145 DC 03/18 IV PUSH 03/18 0146 0204 Furosemide 20 MG ONCE ONE 03/17 204 DC IV 03/17 204 Levetiracetam 1,000 MG Q12 03/17 2200 03/17 N/A 1 UNIT IV 2356 Levetiracetam 1,000 MG BID 03/16 1000 DC 03/17 PO 1119 Lorazepam 0.5 MG BID PRN 03/12 1330 AC 03/15 PO 03/19 1329 0537 Melatonin 5 MG AT BEDTIME 03/16 2200 AC 03/16 PO 2136 Metoprolol Tartrate 6.25 MG BID 03/15 220 AC 03/17 PO 1119 Midodrine 2.5 MG 0800,1200,1600 03/15 1915 AC 03/17 PO 1838 Morphine Sulfate 2 MG ONCE ONE 03/17 2000 DC 03/17 IV 03/17 Morphine Sulfate 2 MG Q6P PRN 03/12 1630 AC 03/15 IV 1203 Norepinephrine 4 MG Q24H 03/17 2230 AC Dextrose/Water 250 ML IV Omeprazole 40 MG DAILY AC 03/13 07 AC 03/17 PO 0642 Ondansetron HCl 4 MG Q6P PRN 03/11 0930 AC IV Phenytoin 200 MG Q12H 03/18 0030 AC 03/18 Sodium Chloride 50 ML IV 0047 Phenytoin 200 MG Q12 03/17 2300 CAN Sodium Chloride 50 ML IV Phenytoin 200 MG BID 03/17 220 CAN IV Phenytoin 200 MG BID 03/16 1000 DC 03/17 PO 1118 Potassium Chloride 40 MEQ ONCE ONE 03/17 1530 DC 03/17 PO 03/17 1531 1837 Potassium Chloride 20 MEQ BID 03/16 1235 AC 03/17 PO 1119 Sertraline HCl 150 MG QPM 03/12 2200 AC 03/16 PO 2136 Total Parenteral 1 UNIT 03/17 1900 AC 03/17 Nutrition IV 03/18 1859 2148 Total Parenteral 1 UNIT 0 03/16 1900 DC 03/16 Nutrition IV 03/17 1859 2025 Trazodone HCl 50 MG AT BEDTIME 03/11 2200 03/16 PO 2136 Review of Systems Review of Systems: Unable to obtain due to clinical status. 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 MOTHER, , Age 50-60; Cause: Cancer of unknown origin. BROTHER ([employer]). Relation not specified for: *No pertinent family history Psychosocial History Where Do You Live? Extended Care Facility Services at Home: None Primary Language: [place]rugu[place] Smoking Status: Never Smoked ETOH Use: denies use Illicit Drug Use: denies illicit drug use Living Will? yes Power of Med Aide/HCP? unknown Name of POA/HCP: brother Functional Ability ADLs Unknown: dressing, eating, toileting, bathing. Ambulation: independent IADLs Unknown: shopping, housework, finances, food prep, telephone, transportation, medication admin. Exam & Diagnostic Data Vital Signs and I&O Vital Signs Date Time Temp Pulse Resp B/P B/P Pulse O2 O2 Flow FiO2 Mean Ox Delivery Rate 03/18 0559 92 97 03/18 0557 87 98 03/18 0412 89 97 03/18 0410 94 98 03/18 0106 95 97 03/18 0104 92 99 03/18 0000 96.8 91 20 104/80 98 BIPAP 45% 03/18 0000 98 BIPAP 40% 03/17 2207 109 98 03/17 2000 138 99 03/17 1945 93 Nasal 5.0L Cannula 03/17 1422 97.4 109 18 104/72 96 Nasal Cannula 03/17 1119 76 100/64 Intake & Output 03/18 1600 03/18 0800 03/18 0000 Intake Total 208.6 Output Total 350 Balance -141.4 Intake, 208.6 TPN/PPN Number 0 Bowel Movements Output, Urine 350 Physical Exam General Appearance: awake, comfortable, thin, on BiPAP Head: atraumatic Respiratory: chest non-tender, crackles, rhonchi, on BiPAP Cardiovascular: edema, tachycardia Gastrointestinal: abnormal bowel sounds, distention, tenderness Extremities: 3+ all extremity edema Neurologic/Psych: awake, flat affect Skin: cool to touch Lymphatic: anasarca Last 48 Hours of Lab Results: Laboratory Tests 03/18 03/17 0600 2215 Blood Gas pH (7.35 - 7.45 PH) 7.42 pCO2 (35 - 45 TORR) 41 pO2 (80 - 100 TORR) 154 H HCO3 (21 - 28 MEQ/L) 26 ABG O2 Sat (Measured) (>96.0 %) 98.0 P-50 (Temp Corrected) N Carboxyhemoglobin (1.5 - 5.0 %) 0.8 L O2 Concentration % 45% Respiration Rate (BPM) 22 O2 Delivery Method BIPAP Vent Mode ST Expiratory Pressure (CM H2O P) 4 Inspiratory Pressure (CM H2O P) 16 Chemistry Sodium (137 - 145 mmol/L) 146 H Potassium (3.5 - 5.1 mmol/L) 3.3 L Chloride (98 - 107 mmol/L) 111 H Carbon Dioxide (22 - 30 mmol/L) 28 Anion Gap (5 - 16) 6 BUN (9 - 20 mg/dL) 22 H Creatinine (0.7 - 1.2 mg/dL) 0.6 L Estimated GFR (>60 ml/min) > 60 BUN/Creatinine Ratio (7 - 25 %) 36.7 H Hematology CBC w Diff NO MAN DIFF REQ WBC (4.8 - 10.8 /CUMM) 8.9 RBC (4.70 - 6.10 /CUMM) 2.92 L Hgb (14.0 - 18.0 G/DL) 8.4 L Hct (42 - 52 %) 26.5 L MCV (80.0 - 94.0 FL) 90.8 MCH (27.0 - 31.0 PG) 28.8 RDW (11.5 - 14.5 %) 18.7 H Plt Count (130 - 400 /CUMM) 276 MPV (7.4 - 10.4 FL) 8.4 Gran % (42.2 - 75.2 %) 80.9 H Lymphocytes % (20.5 - 51.1 %) 12.2 L Monocytes % (1.7 - 9.3 %) 5.6 Eosinophils % (0 - 5 %) 1.0 Basophils % (0.0 - 2.0 %) 0.3 Absolute Granulocytes (1.4 - 6.5 /CUMM) 7.2 H Absolute Lymphocytes (1.2 - 3.4 /CUMM) 1.1 L Absolute Monocytes (0.10 - 0.60 /CUMM) 0.5 Absolute Eosinophils (0.0 - 0.7 /CUMM) 0.1 Absolute Basophils (0.0 - 0.2 /CUMM) 0 PUBS MCHC (33.0 - 37.0 G/DL) 31.7 L Miscellaneous Phlebotomy Draw Site LEFT RADIAL 03/17 Chemistry Sodium (137 - 145 mmol/L) 142 Potassium (3.5 - 5.1 mmol/L) 4.7 Chloride (98 - 107 mmol/L) 111 H Carbon Dioxide (22 - 30 mmol/L) 24 Anion Gap (5 - 16) 7 BUN (9 - 20 mg/dL) 24 H Creatinine (0.7 - 1.2 mg/dL) 0.7 Estimated GFR (>60 ml/min) > 60 BUN/Creatinine Ratio (7 - 25 %) 34.3 H Magnesium (1.6 - 2.3 mg/dL) 1.8 Troponin I (<0.11 ng/ml) 0.02 Cancelled Coagulation D-Dimer High Sensitivty (0 - 243 ng/ml) 651 H Hematology CBC w Diff MAN DIFF ORDERED WBC (4.8 - 10.8 /CUMM) 17.5 H RBC (4.70 - 6.10 /CUMM) 3.44 L Hgb (14.0 - 18.0 G/DL) 9.9 L Hct (42 - 52 %) 31.6 L MCV (80.0 - 94.0 FL) 92.0 MCH (27.0 - 31.0 PG) 28.8 RDW (11.5 - 14.5 %) 18.7 H Plt Count (130 - 400 /CUMM) 392 MPV (7.4 - 10.4 FL) 8.9 Gran % (42.2 - 75.2 %) 68.9 Lymphocytes % (20.5 - 51.1 %) 24.2 Monocytes % (1.7 - 9.3 %) 6.3 Eosinophils % (0 - 5 %) 0.3 Basophils % (0.0 - 2.0 %) 0.3 Absolute Granulocytes (1.4 - 6.5 /CUMM) 12.1 H Absolute Lymphocytes (1.2 - 3.4 /CUMM) 4.2 H Absolute Monocytes (0.10 - 0.60 /CUMM) 1.1 H Absolute Eosinophils (0.0 - 0.7 /CUMM) 0 Absolute Basophils (0.0 - 0.2 /CUMM) 0 Platelet Estimate (ADEQUATE) ADEQUATE Hypochromic-Microcytic 1+ Poikilocytosis 1+ Stomatocytes 1+ PUBS MCHC (33.0 - 37.0 G/DL) 31.3 L Imaging/Other Studies: CT abdomen/pelvis 03/12/2017: Prominent central pelvic mass is again demonstrated. There is internal high attenuation within the cystic components which is new from prior study and likely associated with fistulization with the bowel, as enteric contrast was utilized for this study. The mass also abuts the bladder which is decompressed. It is conceivable that there is additional fistulization with the bladder resulting in stool within the urine, although this is not fully demonstrated. Bilateral adrenal gland nodules again noted. No bowel obstruction. Assessment/Plan Assessment: Mr. 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 His hospital course has been complicated by sepsis, hypotension, tachycardia, and pleural effusion. He is now in the ICU for hypotension, hypoxia, and tachycardia. He is now on BiPAP. He is awake this morning but does not answer questions. He continous to be on TPN. Nutritional status continues to be poor. His last albumin is 1.6. He continues to have failure to thrive despite TPN. I have discussed his case with Dr. Jr Asher (surgical oncology) at [facility] and he felt that an albumin of 1.6 would not be a candidate for surgery. His albumin continues to decrease. Clinically he continues to decline with frequent admission. His performance status is at least a 3. I did bring up surgery with the patient and he declined this morning. He is not a candidate for chemotherapy and benefit would likely be minimal. Radiation is an option but given the low grade status, it is unclear if this will be beneficial to the patient. It is reasonable to pursue palliation as the goal of care. Hospice would be appropriate for this patient. Recommendations: 1. Pursue discussion with patient and family on transition to hospice 2. Optimization of nutrition 3. Psychiatric follow up Problem List: 1. Low grade mucinous neoplasm of appendix 2. Shock 3. Sepsis 4. Failure to thrive 5. Hypoalbuminemia 6. Complicated urinary tract infection Other Findings/Comments: Please call [phone] Consult Acknowledgment - Thank you for your consult request.
[2017-03-18 10:00] VITALS: BP 102/70
--- NOTE | 2017-03-18 10:43 | NUR ---
ALL INTERVENTIONS DOCUMENTED AT 1000 WERE PERFORMED AT 0800
--- NOTE | 2017-03-18 11:27 | NUR ---
PT WAS CHANGED FROM BIPAP TO A 4L NC AT 0830 AND HAS MAINTAINED AN O2 AT OF 97% EXCEPT WHEN HE WAS EATING, O2 SAT DECREASED TO 93%. NO REPS DISTRESS NOTED.
--- NOTE | 2017-03-18 11:44 | PN- Cardiology ---
Subjective Subjective: * Patient refuses physical exam. He reports shortness of breath and lightheadedness. * Noted to be tachycardic with borderline blood pressure. * Appetite is poor. Albumen is 1.6. * potassium is 3.3. * BNP has come down from his baseline. Objective Vital Signs and I&Os Vital Signs Date Time Temp Pulse Resp B/P B/P Pulse O2 O2 Flow FiO2 Mean Ox Delivery Rate 03/18 1001 96.8 102 32 113/76 03/18 1000 99 BIPAP 30% 03/18 1000 96.8 82 22 102/70 99 BIPAP 30% 03/18 0829 95 Nasal 4.0L Cannula 03/18 0828 102 97 03/18 0559 92 97 03/18 0557 87 98 03/18 0412 89 97 03/18 0410 94 98 03/18 0106 95 97 03/18 0104 92 99 03/18 0000 96.8 91 20 104/80 98 BIPAP 45% 03/18 0000 98 BIPAP 40% 03/18 0000 96.3 93 20 104/80 98 BIPAP 45% 03/17 2207 109 98 03/17 2000 138 99 03/17 1945 93 Nasal 5.0L Cannula 03/17 1422 97.4 109 18 104/72 96 Nasal Cannula Intake & Output 03/18 1600 03/18 0800 03/18 0000 03/17 1600 03/17 0800 03/17 0000 Intake Total 617.0 208.6 750 637.0 830.4 Output Total 942 350 500 450 Balance -325.0 -141.4 250 637.0 380.4 Intake, IV 250 350 Intake, Lipid 73.0 100.0 10.4 Intake, Oral 400 120 740 Intake, 294 208.6 417 80 TPN/PPN Number 0 2 2 4 Bowel Movements Output, Urine 942 350 500 450 Patient 243 lb 230 lb Weight Weight Bed scale Measurement Method Physical Exam: General: WD/overweight male in NAD; not allowing physical exam Extremities: 3+ lower extremity edema and 3+ right arm edema with 2+ left arm edema Assessment/Plan Assessment/Plan * This patient has a low BP at his baseline along with tachycardia. 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 He had recent blood loss that was also contributing to hypotension and he remains anemic. This patient need to maintain adequate filling pressures and will not tolerate overdiuresis very well. He is third spacing fluids and improvement in his nutritional status may help. Diuresis will need to be pursued with caution. If hypotensive and tachycardic, I would give fluids as needed to maintain a SBP of 90mmHg. Continue low dose Metoprolol for now. T4 is a bit low. * This patient has a decreased EF compared with a prior echo. 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 Myocardial ischemia cannot be excluded. Anemia is also a likely contributor to his tachycardia. In consideration of the patient's prior history of PE and his hemodynamic status this patient may have had a PE but he is not a candidate for anticoagulation at this point in time. * Please replete potassium. Continue telemetry? Yes
--- NOTE | 2017-03-18 11:53 | PN- Resident CRCU ---
CHRISTINE JAIMES 03/18/17 1153: Subjective HPI/CRCU Issues: Pt was seen and examined at the bedside. He returned to the ICU overnight for dyspnea and hypotension. Levophed was ordered, but he did not require any to maintain his BP. Lowest recorded BP overnight was 104/80. CXR reviewed and showed congestion for which he was started on NIPPV. He states he slept well, and he feels better. He has no acute complaints. He doesn't have much of an appetite, but agreed to try and eat to bring up his nutrition. Labs reviewd. Low K, repleted. He remains tachycardic, in the low 100s. No fever , and leukocytosis resolved. He continues to have differing decisions regarding his plan of care and how involved he would like us to be. At the time of the interview, he states that he doesn't want further intervwntion including surgery or subspecialty care. He was evaluted by Dr. Bajwa this am, who spoke with the surgical team and bonaparte who deemed him not a candidate for surgery at the moment given his low nutritional state. Objective Vital Signs & I&O Last 8 Hrs of Vitals and I&O: Intake & Output 03/18 1600 Intake Total 1077 Output Total 425 Balance 652 Intake, IV 777 Intake, Oral 300 Number 0 Bowel Movements Output, Urine 425 Patient 110.393 kg Weight Weight Bed scale Measurement Method Exam General Appearance: well developed/nourished, no apparent distress, alert, awake , comfortable Head: atraumatic, normal appearance Neck: normal inspection, supple Respiratory: rales BL Cardiovascular: regular rate/rhythm, tachycardia Gastrointestinal: denies exam Extremities: persistent unchanged swelling in RUE and BL LE from the last time I saw him. Current Medications: Current Medications Sig/Ghulam Start time Last Medication Dose Route Stop Time Status Admin Acetaminophen 650 MG Q6P PRN 03/12 1630 AC PO Albuterol Sulfate 3 ML Q4P PRN 03/12 1115 AC INH Albuterol Sulfate 3 ML Q6H PRN 03/11 0930 AC 03/17 INH 194 Alprazolam 0.25 MG BID PRN 03/11 0930 DC 03/17 PO 03/18 0929 194 Ampicillin Sodium/ 1,500 MG Q6H 03/13 2030 AC 03/18 Sulbactam Sodium IV 1414 Sodium Chloride 100 ML Fat Emulsion 300 ML Q24H 03/17 1900 AC 03/17 Intravenous IV 03/19 1858 2148 Fat Emulsion 250 ML Q24H 03/16 1900 DC 03/16 Intravenous IV 03/17 1859 2025 Furosemide 20 MG ONCE ONE 03/18 0145 DC 03/18 IV PUSH 03/18 0146 0204 Furosemide 20 MG ONCE ONE 03/17 2045 DC IV 03/17 2046 Levetiracetam 1,000 MG Q12 03/17 220 AC 03/18 N/A 1 UNIT IV 1001 Levetiracetam 1,000 MG BID 03/16 1000 DC 03/17 PO 1119 Lorazepam 0.5 MG BID PRN 03/12 1330 AC 03/15 PO 03/19 1329 0537 Melatonin 5 MG AT BEDTIME 03/16 2200 AC 03/16 PO 2136 Metoprolol Tartrate 6.25 MG BID 03/15 220 AC 03/18 PO 1001 Midodrine 7.5 MG 0800,1200,1600 03/18 1600 AC PO Midodrine 2.5 MG 0800,1200,1600 03/15 191 DC 03/18 PO 1208 Morphine Sulfate 2 MG ONCE ONE 03/17 2000 DC 03/17 IV 03/17 Morphine Sulfate 2 MG Q6P PRN 03/12 1630 AC 03/15 IV 1203 Norepinephrine 4 MG Q24H 03/17 2230 DC Dextrose/Water 250 ML IV Omeprazole 40 MG DAILY AC 03/13 07 AC 03/18 PO 0836 Ondansetron HCl 4 MG Q6P PRN 03/11 0930 AC IV Phenytoin 200 MG Q12H 03/18 0030 AC 03/18 Sodium Chloride 50 ML IV 1208 Phenytoin 200 MG Q12 03/17 2300 CAN Sodium Chloride 50 ML IV Phenytoin 200 MG BID 03/17 2200 CAN IV Phenytoin 200 MG BID 03/16 1000 DC 03/17 PO 1118 Potassium Chloride 40 MEQ ONCE ONE 03/18 0900 DC 03/18 PO 03/18 0901 1002 Potassium Chloride 20 MEQ BID 03/16 1235 AC 03/18 PO 1001 Sertraline HCl 150 MG QPM 03/12 2200 AC 03/16 PO 2136 Total Parenteral 1 UNIT 1900 03/17 1900 AC 03/17 Nutrition IV 03/19 1858 2148 Total Parenteral 1 UNIT 1900 03/16 1900 DC 03/16 Nutrition IV 03/17 Trazodone HCl 50 MG AT BEDTIME 03/11 2200 AC 03/16 PO 2135 Impression/Plan Impression/Problem List Impression: Mr Carrion is a 61-year-old man with a past history of 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 He presents again to the ICU for dyspnea and desaturation a/w hypotension for which he was placed on BiPAP and given a dose of lasix. Levophed was ordered but never given as his BP did not drop below 90 systolically. Problem List/Assessment and Plan Respiratory * Now improved, off BiPAP. * saturating in the mid-high 90s on 4 L oxygen-nasal cannula * CXR showed BL pleural effusions. Clinically, he appears fluid overloaded, but is preload dependent given his IVC compression. No lasix if it can be avoided. BiPAP as needed for pulm edema. * Continue to monitor closely with goal sat >92 Infectious * 1/2 bottles growing e. coli, with urine growing e. 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 On Unasyn 1.5q6h day 6 * Afebrile and leukocytosis resolved Cardiac/circulatory * BP stable w/o levophed. * Heart failure most likely tachycardia induced. His tachycardia is most likely in repsonse to hypotension as his venous return is impaired 2/2 IVC compression. He is preload dependent. * Cardio consult appreciated. We will re-evaluate with an a repeat echo as his tachycardia improved slightly. * Continues to be on coreg 6.25, if his tachycardia worsens, consider small NS bolus, 500cc, and increasing to 12.5mg BID to be titrated upwards if ok with cardio Hematology * H/H stable as well as platelets. * Heme/onc consult appreciated. No surgical/chemo/radiation intervention at the moment. Alimentary * PO diet and TPN * Nutrition consult appreciated. * f/u labs ordered. * We will adjust TPN concentration based on labs. * s/p EGD, which did not reveal any bleeding ulcers. Neuro * No change. * Continue anti-epileptic meds DVT ppx: on lovenox SC DNR/DNI Problem List: 1. Failure to thrive 2. Anemia 3. GI bleed 4. Hypoalbuminemia 5. Sepsis 6. Pseudomyxoma peritonei Pain Ratin Tomorrow's Labs & Rationales: icu, cbc, phos, mag, TGs, ?CXR Plan DVT/Prophylaxis: mechanical Code Status: Do Not Resucitate/Intubat ALPHONSO WHITESIDE MD 03/18/17 1544: Attending MD Review Statement Attending Sign Off Attending Cosign Statement: I have: examined this patient, reviewed avalbl EMR data, personally reviewd images, discussd w/resident/PA/SPECIAL NEEDS BABYSITTER, discussed mgmt plan w/kobi, discussed mgmt plan w/CM, discussed mgmt plan w/pt, agreed w/resident/PA/SPECIAL NEEDS BABYSITTER, amended to note. Other Findings: IAlphonso M.D. have examined this patient, reviewed available EMR data, personally reviewed images, discussed with resident/PA/SPECIAL NEEDS BABYSITTER, discussed management plan with housestaff and nursing staff, discussed managment plan all of healthcare providers, discussed management plan with patient and/or family, agreed with resident/PA/SPECIAL NEEDS BABYSITTER. The past history and parts of the chart have been autopopulated. Impression 61 year old man Returns to ICU for hypoxemic respiratory failure anasarca, malnutrition e.coli & VRE possible colovesicular fistula on unasyn Plan -dnr/dni -conservative measures -will need to have goals of care clarified with family -psych appreciated -will need to address all goals alongside with family -monitor hemodynamics -cont abx -f/u in home sales consultant recommendations DNR/DNI TTS 35 min KAROLINA CHONG MD 03/18/170: Attending MD Review Statement Attending Statement Attending MD Statement: examined this patient, discuss w/resident/PA/SPECIAL NEEDS BABYSITTER, agreed w/resident/PA/SPECIAL NEEDS BABYSITTER, discussed with family, reviewed EMR data (avail), discussed w/ nursing, discussed w/case mgmt, reviewed images, amended to note Attending Assessment/Plan: Events of last evening reviewed and discussed with house staff. Appreciate Oncology and Cardiology input. Albumin continues to decline from initial admission 12/14 in spite of TPN being started from [facility] 02/02/17. Reviewed TPN requirements and should be receiving 2280 cc/24 hours. Has been only receiving half of this with last admits. Also ?LVEF declined from normal since last ECHO . Discussed with Dr. Aragon and this may be an artifact due to tachycardia. Await repeat ECHO result. The patient is much more alert today (has not received Ativan/Morphine). I spoke with the patient's brother who will come in to see him in the morning. I informed him that we have not thusfar been successful with building up his nutrition and in his current state [facility] surgeons would not perform surgery. It is unclear if he would tolerate the full fluid load of 2280 cc/24 hours needed. I advised him that if his LVEF is significantly reduced this would also represent a significant risk for surgery. I did broach the subject of palliative care/comfort measures. The patient's brother will come in the morning and discuss with Dr. Jaimes and staff. ECHO results should be back by then. Nursing will continue to avoid sedation so that his brother may speak with him (his brother says he was too somnolent the last visit).
--- NOTE | 2017-03-18 14:10 | PN- Psychiatry ---
Assessment/Plan Impression: Identifying Info: 61-year-old single male known to this service presents to [facility] 03[facility] with SOB, fatigue, and dark colored stools. Transferred ti CCU overnight. SUBJECTIVE Patient states he feels "much better than yesterday." Although he states he is "still a little bit confused." Reports that his current treatment is "nothing at the moment," and continues to state he would not like to speak with any specialists. When asked spoken about comfort care with MDs states that he had but "I'm not ready to ." Asked that, if possible, would her prefer treatment which may include surgery or comfort measures he replies that "I would have the surgery." States he would not like to make this decision right now and reassured that he would not be required to. Brief ROS Gait: Not observed Sleep: Fair Appetite: Poor OBJECTIVE Mental Status Exam Presentation/Appearance: Cooperative with evaluation. Hospital garb. Calm. Lying in bed. Orientation: To self, states place is "[facility]," date as Wednesday Sensorium: Somnolent but easy to arouse Eye contact: Appropriate Affect: Restricted Mood: "Much better" Depression: Denies Anxiety: Endorses Thought Content: - Denies SI/HI, AH/VH, PI. States and also believes they will not kill themselves. - Denies Hopeless/Helpless Thoughts Thought Process: Confusion improved but remains Associations: Primarily appropriate, loose at times Speech: Somewhat monotone, repeats self often Judgment: Fair Insight: Fair Cognition: Memory: Deficits noted Attention/Concentration: Fair Fund of Knowledge: Adequate Abstractions:[place] MMSE: Not assessed today. 23/28 on 03/12 (written response questions omitted due to edema to R hand), on last exam 3 weeks ago patient scored 26/30, no significant changes, again deficits in questions r/t immediate recall, no major cognitive impairment at that time. Per nursing report better appears improved in terms of mentation and mood. Per house staff the patient continues to refuse care from specialists including caridology. He states he would not like surgery. Of note, due to poor nutrition status he remains a poor candidate for surgery. His mentation appears improved. Would like patient assessed for capacity to consent for palliative care if he is not to receive surgery. ASSESSMENT 61-year-old single male with history of childhood encephalitis and Pseudomyxoma peritonei awaiting surgery a [place] presents again with anxiety, mild confusion and indecision. He presents as somewhat confused at this time and mentation appears to be waxing and waining throughout the day. While his mentation has improved it is not clear he appreciates the situation and it's consequences, understands the relevant treatment information or displays an ability to reason about treatment options. While he is able to communicate choices they often change depending on time of day or care provider he is speaking to. He does not demonstrate health care decision making capacity at time of interview. 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 Suggestion: 1. We will continue to evaluate capacity on an ongoing basis as it relates to specific treatment choices. 2. Please defer to next of kin or legal healthcare sales representative malt liquors at this time for health care decision making. It would be prudent to schedule a goals of care meeting with patient, next of kin, and care providers. 3. Continue psychotropics as currently ordered, use lorazepam with caution. 4. Please continue to avoid benzodiazepines, opioid analgesics, and meds with strong anticholinergic properties as much as possible to prevent further confusion. 5. Please initiate the following nonpharmacologic interventions: -Avoid nursing and medical procedures during sleep hours whenever possible - Cluster at night interventions that must be completed as much as possible to minimize sleep disruption - Decrease noise patient area during sleeping hours - Reduce lighting at night - Ensure patient has any sensory aids close by that he regularly uses Thank you for including psychiatry in this case will continue to follow. Subjective Subjective: as above Objective Last 24 Hrs of Vital Signs/I&O Current Medications Sig/Ghulam Start time Last Medication Dose Route Stop Time Status Admin Acetaminophen 650 MG Q6P PRN 03/12 1630 AC PO Albuterol Sulfate 3 ML Q4P PRN 03/12 1115 AC INH Albuterol Sulfate 3 ML Q6H PRN 03/11 0930 AC 03/17 INH 194 Alprazolam 0.25 MG BID PRN 03/11 0930 DC 03/17 PO 03/18 0929 194 Ampicillin Sodium/ 1,500 MG Q6H 03/13 2030 AC 03/18 Sulbactam Sodium IV 0831 Sodium Chloride 100 ML Fat Emulsion 300 ML Q24H 03/17 1900 AC 03/17 Intravenous IV 03/19 1858 2148 Fat Emulsion 250 ML Q24H 03/16 1900 DC 03/16 Intravenous IV 03/17 1859 2025 Furosemide 20 MG ONCE ONE 03/18 0145 DC 03/18 IV PUSH 03/18 0146 0204 Furosemide 20 MG ONCE ONE 03/17 2045 DC IV 03/17 2046 Levetiracetam 1,000 MG Q12 03/17 2200 03/18 N/A 1 UNIT IV 1001 Levetiracetam 1,000 MG BID 03/16 1000 DC 03/17 PO 1119 Lorazepam 0.5 MG BID PRN 03/12 1330 AC 03/15 PO 03/19 1329 0537 Melatonin 5 MG AT BEDTIME 03/16 2200 03/16 PO 2136 Metoprolol Tartrate 6.25 MG BID 03/15 220 03/18 PO 1001 Midodrine 7.5 MG 0800,1200,1600 03/18 1600 AC PO Midodrine 2.5 MG 0800,1200,1600 03/15 1915 OH 03/18 PO 1208 Morphine Sulfate 2 MG ONCE ONE 03/17 2000 DC 03/17 IV 03/17 Morphine Sulfate 2 MG Q6P PRN 03/12 1630 03/15 IV 1203 Norepinephrine 4 MG Q24H 03/17 2230 DC Dextrose/Water 250 ML IV Omeprazole 40 MG DAILY AC 03/13 0700 AC 03/18 PO 0836 Ondansetron HCl 4 MG Q6P PRN 03/11 0930 AC IV Phenytoin 200 MG Q12H 03/18 0030 03/18 Sodium Chloride 50 ML IV 1208 Phenytoin 200 MG Q12 03/17 2300 CAN Sodium Chloride 50 ML IV Phenytoin 200 MG BID 03/17 2200 CAN IV Phenytoin 200 MG BID 03/16 1000 DC 03/17 PO 1118 Potassium Chloride 40 MEQ ONCE ONE 03/18 0900 DC 03/18 PO 03/18 0901 1002 Potassium Chloride 40 MEQ ONCE ONE 03/17 1530 DC 03/17 PO 03/17 1531 1837 Potassium Chloride 20 MEQ BID 03/16 1235 AC 03/18 PO 1001 Sertraline HCl 150 MG QPM 03/12 2200 AC 03/16 PO 2136 Total Parenteral 1 UNIT 03/17 AC 03/17 Nutrition IV 03/19 Total Parenteral 1 UNIT 03/16 DC 03/16 Nutrition IV 03/17 Trazodone HCl 50 MG AT BEDTIME 03/11 2200 AC 03/16 PO 2136 Laboratory Tests 03/18/17 0600: Anion Gap 6, Estimated GFR > 60, BUN/Creatinine Ratio 36.7 H, Phosphorus 2.7, Magnesium 1.7, Jvl-E-Vfdjqwlnkiy Pept 1740 H, Prealbumin 5.6 L, Triglycerides 153 H, CBC w Diff NO MAN DIFF REQ, RBC 2.92 L, MCV 90.8, MCH 28.8, RDW 18.7 H , MPV 8.4, Gran % 80.9 H, Lymphocytes % 12.2 L, Monocytes % 5.6, Eosinophils % 1.0, Basophils % 0.3, Absolute Granulocytes 7.2 H, Absolute Lymphocytes 1.1 L, Absolute Monocytes 0.5, Absolute Eosinophils 0.1, Absolute Basophils 0, PUBS MCHC 31.7 L 03/17/172214: pH 7.42, pCO2 41, pO2 154 H, HCO3 26, ABG O2 Sat (Measured) 98.0, P-50 (Temp Corrected) N, Carboxyhemoglobin 0.8 L, O2 Concentration % 45%, Respiration Rate 22, O2 Delivery Method BIPAP, Vent Mode ST, Expiratory Pressure 4, Inspiratory Pressure 16, Phlebotomy Draw Site LEFT RADIAL 03/17/171999: Anion Gap 7, Estimated GFR > 60, BUN/Creatinine Ratio 34.3 H, Magnesium 1.8, Troponin I 0.02, D-Dimer High Sensitivty 651 H, CBC w Diff MAN DIFF ORDERED, RBC 3.44 L, MCV 92.0, MCH 28.8, RDW 18.7 H, MPV 8.9, Gran % 68.9, Lymphocytes % 24.2, Monocytes % 6.3, Eosinophils % 0.3, Basophils % 0.3, Absolute Granulocytes 12.1 H, Absolute Lymphocytes 4.2 H, Absolute Monocytes 1.1 H, Absolute Eosinophils 0, Absolute Basophils 0, Platelet Estimate ADEQUATE, Hypochromic-Microcytic 1+, Poikilocytosis 1+, Stomatocytes 1+, PUBS MCHC 31.3 L 03/17/17 1950: Troponin I Cancelled Vital Signs Date Time Temp Pulse Resp B/P B/P Pulse O2 O2 Flow FiO2 Mean Ox Delivery Rate 03/18 1200 98 Nasal 4.0L Cannula 03/18 1001 96.8 102 32 113/76 03/18 1000 99 BIPAP 30% 03/18 1000 96.8 82 22 102/70 99 BIPAP 30% 03/18 0829 95 Nasal 4.0L Cannula 03/18 0828 102 97 03/18 0559 92 97 03/18 0557 87 98 03/18 0412 89 97 03/18 0410 94 98 03/18 0106 95 97 03/18 0104 92 99 03/18 0000 96.8 91 20 104/80 98 BIPAP 45% 03/18 0000 98 BIPAP 40% 03/18 0000 96.3 93 20 104/80 98 BIPAP 45% 03/17 2207 109 98 03/17 2000 138 99 03/17 1945 93 Nasal 5.0L Cannula 03/17 1422 97.4 109 18 104/72 96 Nasal Cannula Intake & Output 03/18 1600 03/18 0800 03/18 0000 Intake Total 617.0 208.6 Output Total 942 350 Balance -325.0 -141.4 Intake, IV 250 Intake, Lipid 73.0 Intake, 294 208.6 TPN/PPN Number 0 Bowel Movements Output, Urine 942 350 Patient 243 lb Weight Weight Bed scale Measurement Method
[2017-03-18 16:00] VITALS: BP 112/76
--- NOTE | 2017-03-18 16:08 | NUR ---
PT IS HAVING A BEDSIDE ECHO PERFORMED
[2017-03-19] VITALS: BP 118/80
--- NOTE | 2017-03-19 02:53 | NUR ---
AT 0100 PATIENT HAD ASKED ME TO RAISE HIS OXYGEN.HE IS PRESENTLY AT 4L WITH A O2 SAT OF 97%. WHEN QUESTIONED ABOUT SOB HE SAID HE WOULD LIKE TO HAVE SOMETHING DONE FOR HIS BREATHING.RESPIRATORY TREATMENT GIVEN.PT STATED HE FELT BETTER AFTER TREATMENT. NASAL O2 REMAINS AT 4L WITH O2 SAT OF 97%.AT 0200 PATIENT WAS TURNED BACK AND FORTH IN THE BED FOR CLEANSING AND BECAME SOB ON EXERTION.DID NOT RECOVER READILY.MONITOR SINUS TACHYCARDIA AT 130,BP 154/96. SEEN BY .LASIX 20 MG GIVEN IV.
[2017-03-19 05:48] LABS: ABSOLUTE BASOPHIL COUNT 0 /CUMM (0.0-0.2); ABSOLUTE EOSINOPHIL COUNT 0 /CUMM (0.0-0.7); ABSOLUTE GRANULOCYTE CT 9.3 /CUMM (1.4-6.5); ABSOLUTE LYMPH COUNT 0.9 /CUMM (1.2-3.4); ABSOLUTE MONOCYTE COUNT 0.6 /CUMM (0.10-0.60); BASOPHIL % 0.1 % (0.0-2.0); EOSINOPHIL % 0.2 % (0-5); GRANULOCYTE % 85.7 % (42.2-75.2); HEMATOCRIT 27.7 % (42-52); MEAN CORPUSCULAR HGB 28.9 PG (27.0-31.0); MEAN CORPUSCULAR HGB CONC 31.5 G/DL (33.0-37.0); MEAN CORPUSCULAR VOLUME 91.8 FL (80.0-94.0); MEAN PLATELET VOLUME 8.4 FL (7.4-10.4); PLATELET COUNT 299 /CUMM (130-400); RBC DISTRIBUTION WIDTH 19.2 % (11.5-14.5); RED BLOOD CELL CT 3.02 /CUMM (4.70-6.10); WHITE BLOOD CELL COUNT 10.8 /CUMM (4.8-10.8)
--- NOTE | 2017-03-19 07:30 | PN- Oncology ---
Subjective Subjective: He does not want to talk this morning. He states he is "not interested." Review of Systems: Unable to be obtained. Objective Vital Signs and I&Os Vital Signs Date Time Temp Pulse Resp B/P B/P Pulse O2 O2 Flow FiO2 Mean Ox Delivery Rate 03/19 0400 98 Nasal 4.0L Cannula 03/19 0118 97 Nasal 4.0L Cannula 03/19 0000 98 Nasal 4.0L Cannula 03/19 0000 97.4 110 20 118/80 98 Nasal 4.0L Cannula 03/18 2137 112 20 112/74 03/18 2000 97 Nasal 4.0L Cannula 03/18 1953 98 Nasal 4.0L Cannula 03/18 1600 95 Nasal 4.0L Cannula 03/18 1600 98.8 102 20 112/76 95 Nasal 4.0L Cannula 03/18 1200 98 Nasal 4.0L Cannula 03/18 1001 96.8 102 32 113/76 03/18 1000 99 BIPAP 30% 03/18 1000 96.8 82 22 102/70 99 BIPAP 30% 03/18 0829 95 Nasal 4.0L Cannula 03/18 0828 102 97 Intake & Output 03/19 0800 03/19 0000 03/18 1600 03/18 0800 03/18 0000 03/17 1600 Intake Total 785.0 1077 617.0 208.6 750 Output Total 550 425 942 350 500 Balance 235.0 652 -325.0 -141.4 250 Intake, IV 100 777 250 350 Intake, Lipid 102.0 73.0 Intake, Oral 100 300 400 Intake, 483 294 208.6 TPN/PPN Number 0 0 2 Bowel Movements Output, Urine 550 425 942 350 500 Patient 110.393 kg 104.326 kg Weight Weight Bed scale Measurement Method Physical Exam: Deferred by patient. Current Medications: Current Medications Sig/Ghulam Start time Last Medication Dose Route Stop Time Status Admin Acetaminophen 650 MG Q6P PRN 03/12 1630 AC PO Albuterol Sulfate 3 ML Q4P PRN 03/12 1115 AC 03/19 INH 0114 Albuterol Sulfate 3 ML Q6H PRN 03/11 0930 AC 03/17 INH 194 Alprazolam 0.25 MG BID PRN 03/11 0930 DC 03/17 PO 03/18 0929 194 Ampicillin Sodium/ 1,500 MG Q6H 03/13 2030 AC 03/19 Sulbactam Sodium IV 0237 Sodium Chloride 100 ML Fat Emulsion 300 ML Q24H 03/17 1900 AC 03/18 Intravenous IV 03/19 185 204 Furosemide 20 MG ONCE ONE 03/19 0230 DC 03/19 IV 03/19 0231 0237 Levetiracetam 1,000 MG BID 03/18 2300 AC 03/18 PO 225 Levetiracetam 1,000 MG Q12 03/17 220 DC 03/18 N/A 1 UNIT IV 2136 Lorazepam 0.5 MG BID PRN 03/12 1330 DC 03/15 PO 03/19 1329 0537 Melatonin 5 MG AT BEDTIME 03/16 2200 AC 03/18 PO 213 Metoprolol Tartrate 6.25 MG BID 03/15 2200 AC 03/18 PO 2137 Midodrine 7.5 MG 0800,1200,1600 03/18 1600 AC 03/18 PO 1640 Midodrine 2.5 MG 0800,1200,1600 03/15 1915 DC 03/18 PO 1208 Morphine Sulfate 2 MG Q6P PRN 03/12 1630 DC 03/15 IV 1203 Norepinephrine 4 MG Q24H 03/17 2230 DC Dextrose/Water 250 ML IV Omeprazole 40 MG DAILY AC 03/13 0700 AC 03/18 PO 0836 Ondansetron HCl 4 MG Q6P PRN 03/11 0930 AC IV Phenytoin 200 MG BID 03/18 2300 AC 03/18 PO 2252 Phenytoin 200 MG Q12H 03/18 0030 DC 03/18 Sodium Chloride 50 ML IV 1208 Potassium Chloride 40 MEQ .STK-MED ONE 03/18 0959 DC PO 03/18 1000 Potassium Chloride 40 MEQ ONCE ONE 03/18 0900 DC 03/18 PO 03/18 0901 1002 Potassium Chloride 20 MEQ BID 03/16 1235 AC 03/18 PO 2137 Sertraline HCl 150 MG QPM 03/12 2200 AC 03/18 PO 213 Total Parenteral 1 UNIT 1900 03/17 190 AC 03/18 Nutrition IV 03/19 1858 204 Trazodone HCl 50 MG AT BEDTIME 03/11 2200 AC 03/18 PO 213 Results Last 24 Hours of Lab Results: Laboratory Tests 03/19 0500 Chemistry Sodium (137 - 145 mmol/L) 144 Potassium (3.5 - 5.1 mmol/L) 3.7 Chloride (98 - 107 mmol/L) 109 H Carbon Dioxide (22 - 30 mmol/L) 30 Anion Gap (5 - 16) 5 BUN (9 - 20 mg/dL) 18 Creatinine (0.7 - 1.2 mg/dL) 0.5 L Estimated GFR (>60 ml/min) > 60 Glucose (65 - 99 mg/dL) 141 H Calcium (8.4 - 10.2 mg/dL) 7.8 L Phosphorus (2.5 - 4.5 mg/dL) 2.7 Magnesium (1.6 - 2.3 mg/dL) 1.5 L Total Bilirubin (0.2 - 1.3 mg/dL) 0.2 AST (17 - 59 U/L) 18 ALT (21 - 72 U/L) 24 Albumin (3.5 - 5.0 g/dL) 1.7 L Prealbumin (17.6 - 36.0 mg/dL) 6.7 L Triglycerides (<150 mg/dL) 129 Hematology CBC w Diff NO MAN DIFF REQ WBC (4.8 - 10.8 /CUMM) 10.8 RBC (4.70 - 6.10 /CUMM) 3.02 L Hgb (14.0 - 18.0 G/DL) 8.7 L Hct (42 - 52 %) 27.7 L MCV (80.0 - 94.0 FL) 91.8 MCH (27.0 - 31.0 PG) 28.9 RDW (11.5 - 14.5 %) 19.2 H Plt Count (130 - 400 /CUMM) 299 MPV (7.4 - 10.4 FL) 8.4 Gran % (42.2 - 75.2 %) 85.7 H Lymphocytes % (20.5 - 51.1 %) 8.5 L Monocytes % (1.7 - 9.3 %) 5.5 Eosinophils % (0 - 5 %) 0.2 Basophils % (0.0 - 2.0 %) 0.1 Absolute Granulocytes (1.4 - 6.5 /CUMM) 9.3 H Absolute Lymphocytes (1.2 - 3.4 /CUMM) 0.9 L Absolute Monocytes (0.10 - 0.60 /CUMM) 0.6 Absolute Eosinophils (0.0 - 0.7 /CUMM) 0 Absolute Basophils (0.0 - 0.2 /CUMM) 0 PUBS MCHC (33.0 - 37.0 G/DL) 31.5 L Assessment/Plan Assessment/Recommendations: Mr. 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 His hospital course has been complicated by sepsis, hypotension, tachycardia, and pleural effusion. He is now in the ICU for hypotension, hypoxia, and tachycardia. He is now on BiPAP. He is awake this morning but does not answer questions. He continous to be on TPN. Nutritional status continues to be poor. His last albumin is 1.6. He continues to have failure to thrive despite TPN. Mr. Carrion is not interested in talking this morning. I have previously discussed this case with Dr. Asher of surgery at [facility] and he felt he would not be a surgical candidate in his current condition. His overall performance status is ECOG 3-4. He is not interested in any therapy at the moment. He would not be a candidate for chemotherapy and surgery at the moment. Radiation would be unlikely to help him given the low grade mucinous neoplasm. Hospice and palliation would be the best options for him at the moment. Recommendations: 1. Pursue discussion with patient and family on transition to hospice 2. Optimization of nutrition Please call [phone] with any new questions or concerns Problem List: 1. Failure to thrive 2. Low grade mucinous neoplasm of appendix 3. Sepsis
[2017-03-19 08:00] VITALS: BP 120/80
--- NOTE | 2017-03-19 08:09 | PN- Resident CRCU ---
Subjective HPI/CRCU Issues: Overnight telemetry events: Sinus tachycardia with a few PVCs overnight. Azeem stated he was doing well overnight. Alongisde with his brother and sister in law, Dr. Conrad and I discussed his wishes, and goals of care. At this point , given his clinical picture including his nutritional status, he is not a candidate for surgery. He understands this and would not like surgical intervention or aggressive measures. However, when we further discussed palliative intervention, Azeem felt that he would still like medical therapy up to the point of BiPAP and central venous access/pressor support if his blood pressure were to drop significantly and he was symptomatic. Aside, he has no acute complaints today. He states he slept very well. He was not short of breath. Denied any palpitations. He denied any chest pain, lightheadedness or dizziness. He states he again does not have much of an appetite but will try to eat as much as he can. Objective Vital Signs & I&O Last 8 Hrs of Vitals and I&O: Vital Signs Date Time Temp Pulse Resp B/P B/P Pulse O2 O2 Flow FiO2 Mean Ox Delivery Rate 03/19 1331 Nasal 2.0L Cannula 03/19 1156 97 Nasal 4.0L Cannula 03/19 1015 98.2 112 28 137/82 03/19 0800 99 Nasal 4.0L Cannula 03/19 0800 98.2 110 20 120/80 99 Nasal 4.0L Cannula 03/19 0400 98 Nasal 4.0L Cannula 03/19 0118 97 Nasal 4.0L Cannula 03/19 0000 98 Nasal 4.0L Cannula 03/19 0000 97.4 110 20 118/80 98 Nasal 4.0L Cannula 03/18 2137 112 20 112/74 03/18 2000 97 Nasal 4.0L Cannula 03/18 1953 98 Nasal 4.0L Cannula 03/18 1600 95 Nasal 4.0L Cannula 03/18 1600 98.8 102 20 112/76 95 Nasal 4.0L Cannula Exam General Appearance: well developed/nourished, no apparent distress, alert, awake , significantly edematous Head: atraumatic Neck: normal inspection, supple Respiratory: decreased air entry BL, some rales noted. no significant wheezing noted. Cardiovascular: tachycardia Gastrointestinal: soft, non-tender, significant edema noted. Extremities: BL LE pitting edema, R>L and RUE swelling Current Medications: Current Medications Sig/Ghulam Start time Last Medication Dose Route Stop Time Status Admin Acetaminophen 650 MG Q6P PRN 03/12 1630 AC PO Albuterol Sulfate 3 ML Q4P PRN 03/12 1115 AC 03/19 INH 0114 Albuterol Sulfate 3 ML Q6H PRN 03/11 0930 AC 03/19 INH 1155 Ampicillin Sodium/ 1,500 MG Q6H 03/13 2030 AC 03/19 Sulbactam Sodium IV 1439 Sodium Chloride 100 ML Fat Emulsion 300 ML Q24H 03/17 1900 AC 03/18 Intravenous IV 03/20 1857 2046 Furosemide 20 MG ONCE ONE 03/19 0230 DC 03/19 IV 03/19 0231 0237 Levetiracetam 1,000 MG BID 03/18 2300 AC 03/19 PO 1016 Levetiracetam 1,000 MG Q12 03/17 2200 DC 03/18 N/A 1 UNIT IV 2136 Lorazepam 0.5 MG BID PRN 03/12 1330 DC 03/15 PO 03/19 1329 0537 Melatonin 5 MG AT BEDTIME 03/16 2200 AC 03/18 PO 2137 Metoprolol Tartrate 6.25 MG BID 03/15 220 AC 03/19 PO 1015 Midodrine 7.5 MG 0800,1200,1600 03/18 1600 AC 03/19 PO 1215 Morphine Sulfate 2 MG Q6P PRN 03/12 1630 DC 03/15 IV 1203 Omeprazole 40 MG DAILY AC 03/13 0700 AC 03/19 PO 0743 Ondansetron HCl 4 MG Q6P PRN 03/11 0930 AC IV Phenytoin 200 MG BID 03/18 2300 AC 03/19 PO 1015 Phenytoin 200 MG Q12H 03/18 0030 DC 03/18 Sodium Chloride 50 ML IV 1208 Potassium Chloride 20 MEQ BID 03/16 1235 AC 03/19 PO 1016 Sertraline HCl 150 MG QPM 03/12 220 AC 03/18 PO 2137 Total Parenteral 1 UNIT 1900 03/17 190 AC 03/18 Nutrition IV 03/20 1857 2046 Trazodone HCl 50 MG AT BEDTIME 03/11 220 AC 03/18 PO 2136 ECHO Findings: SERVICE DATE: 03/18/17-1242 EXAM TYPE: CARD - ECHOCARDIOGRAM CONCLUSIONS 1. Moderately decreased EF of 30% with impaired LV relaxation. 2. Mildly enlarged right ventricle. 3. Mild left atrial enlargment. 4. Mild mitral regurgitation. 5. Mild tricuspid regurgitation. 6. Trace pulmonic regurgitation. 7. Left pleural effusion noted. Impression/Plan Impression/Problem List Impression: Mr Carrion is a 61-year-old man with a past history of abdominal mucinous intraepithelial neoplasm status post partial resection ([facility] 11/2016 -exploratory lap with right hemicolectomy with reanastomosis; primary mass left in place due to invasion into the bladder wall, follow-up karina surgery), pulmonary embolism (2013), chronic iron deficiency anemia, 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 He presented again to the ICU for dyspnea and desaturation a/w hypotension for which he was placed on BiPAP and given a dose of lasix. Levophed was ordered but never given as his BP did not drop below 90 systolically. Problem List/Assessment and Plan Respiratory * Now improved, off BiPAP. * saturating in the mid-high 90s, now on 2L of O2 from 4L yesterday * He got a 20mg dose of lasix yesterday for some transient dyspnea. Overall, he is a little less than 1000cc positive in terms of I/O. * Please try to avoid lasix if possible as he is preload dependent given his IVC compression. BiPAP as needed for pulm edema if he significantly desaturates and has clinical evidence of pulmonary congestion. * Continue to monitor closely with goal sat >92 Infectious * 1/2 bottles growing e. coli, with urine growing e. 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 On Unasyn 1.5q6h day 7 - we will stop ABx today as he has completed a typical course of coverage for uncomplicated aspiration PNA. * Afebrile and leukocytosis resolved Cardiac/circulatory * BP stable w/o levophed. He is on Midodrine 7.5mg q8h. * Heart failure most likely tachycardia induced. His tachycardia is most likely in repsonse to hypotension as his venous return is impaired 2/2 IVC compression. He is preload dependent. * Cardio consult appreciated. We will re-evaluate with an a repeat echo as his tachycardia improved slightly. * Continues to be on coreg 6.25, if his tachycardia worsens, consider small NS bolus, 500cc, and increasing to 12.5mg BID to be titrated upwards if ok with cardio Hematology * H/H stable as well as platelets. * Heme/onc consult appreciated. No surgical/chemo/radiation intervention at the moment. Alimentary * PO diet and TPN * Nutrition consult appreciated. * f/u labs ordered. * We will adjust TPN concentration based on labs. * s/p EGD, which did not reveal any bleeding ulcers. Neuro * No change. * Continue anti-epileptic meds DVT ppx: on lovenox SC DNR/DNI Problem List: 1. Failure to thrive 2. Anemia 3. Hypoalbuminemia 4. GI bleed 5. Pseudomyxoma peritonei Pain Ratin Tomorrow's Labs & Rationales: cbc/bep/TPN labs Plan DVT/Prophylaxis: mechanical Code Status: Do Not Resucitate/Intubat
--- NOTE | 2017-03-19 08:30 | NUR ---
ERC'D THE PT EATING BREAKFAST IN BED. CONTINUES TO HAVE A POOR APPETITE. REMAINS ON TPN AT 58.3LHR WELL LIPIDS AT 12.5ML/HR BOTH INFUSING VIA THE PURPLE PORT OF THE PICC. RED PORT FLUSHED AND HAS GOOD BLOOD RETURN. PT REMAINS A&OX2, OFF TO TIME AND TOOK SEVERAL ATTEMPTS TO EVEN REMEMBER IT WAS FEBRUARY OF 2017. LYNN WEAKLY DUE TO EDEMA. LUE HAS 1+ EDEMA. RUE HAS 3+ EDEMA, BLE HAVE 2+ EDEMA AND 2+ SCROTAL EDEMA PRESENT. PT IS IN A ST WITHOUT ECTOPY PER THE INFRASTRUCTURE TECH. SBP REMAINS >100. SHAR BS ARE CLEAR BUT DIMINISHED AT THE BASES WITH AN O2 SAT OF 98% ON A 4LNC. PT REMAINS TACHYPNEIC AND HAS EXERTIONAL SOB AT TIMES. ABD IS DISTENDED BUT SOFT WITH NORMOACTIVE BOWEL SOUNDS. #[address] [facility] ACE IN PLACE DRAINING YELLOW URINE WITH SEDIMENT.
--- NOTE | 2017-03-19 09:01 | ECHOCARDIOGRAM REPORT ---
JUANY GONZALEZ Age: 61 : 1955 Gender: M Exam Date: 03/18/2017 15:55 Exam Location: [facility] Ht (in): 73 Wt (lb): 243 BSA: 2.41 BP: 113 / 76 Ordering Physician: CHRISTINE FERREIRA MD Referring Physician: Lincoln Aragon MD, PhD Technologist: Lyric Huang [facility] Room Number: 106 Indications: SUPRAVENTRICULAR TACHYCARDIA Rhythm: Sinus Technical Quality: fair FINDINGS Left Ventricle Normal left ventricular size and wall thickness. Moderately decreased systolic function with no obvious regional wall motion abnormalities. Diastolic filling pattern is consistent with impaired LV relaxation. The ejection fraction is visually estimated at 30 %. Right Ventricle The right ventricle is mildly enlarged with normal function. Right Atrium The right atrium is normal in size. Left Atrium The left atrium is mildly enlarged. The interatrial septum is intact. Mitral Valve The mitral valve is normal in structure and function. There is mild mitral regurgitation. Aortic Valve Structurally normal aortic valve without significant sclerosis or stenosis. There is no aortic regurgitation. Tricuspid Valve The tricuspid valve is normal in structure and function. There is mild tricuspid regurgitation. Pulmonary artery systolic pressure is normal. Pulmonic Valve Structurally normal pulmonic valve. There is trace pulmonic regurgitation. Pericardium Normal pericardium without effusion. Left pleural effusion. Great Vessels Normal aortic root dimension. The aortic arch and great vessels are well seen and are normal. CONCLUSIONS 1. Moderately decreased EF of 30% with impaired LV relaxation. 2. Mildly enlarged right ventricle. 3. Mild left atrial enlargment. 4. Mild mitral regurgitation. 5. Mild tricuspid regurgitation. 6. Trace pulmonic regurgitation. 7. Left pleural effusion noted. Lincoln Aragon M.D. (Electronically Signed) Final Date: 19 March 2017 09:01 MEASUREMENTS (Male / Female) Normal Values 2D ECHO LV Diastolic Diameter PLAX 5.3 cm 4.2 - 5.9 / 3.9 - 5.3 cm LV Systolic Diameter PLAX 4.5 cm 2.1 - 4.0 cm LV Fractional Shortening PLAX 15.1 % 25 - 46 % LV Ejection Fraction 2D Teich 31.7 % IVS Diastolic Thickness 1.1 cm LVPW Diastolic Thickness 1.1 cm LV Relative Wall Thickness 0.4 RV Internal Dim ED PLAX 3.7 cm 1.9 - 3.8 cm LVOT Diameter 2.4 cm Aortic Root Diameter 3.4 cm LA Systolic Diameter LX 4.5 cm 3.0 - 4.0 / 2.7 - 3.8 cm LV Ejection Fraction MOD BP 34.5 % >= 55 % LV Diastolic Length 4C 8.1 cm 6.9 - 10.3 cm LV Diastolic Area 4C 33.0 cm LV Diastolic Volume MOD 4C 111.0 cm LV Ejection Fraction MOD 4C 26.1 % LV Stroke Volume MOD 4C 29.0 cm LV Systolic Length 4C 7.3 cm LV Systolic Area 4C 26.8 cm LV Systolic Volume MOD 4C 82.0 cm LV Ejection Fraction MOD 2C 39.8 % LV Diastolic Volume 4C AL 114.0 cm 85 - 139 / 69 - 109 cm LV Systolic Volume 4C AL 83.1 cm LV Ejection Fraction 4C AL 27.1 % LV Stroke Volume 4C AL 30.9 cm LV Ejection Fraction 2C AL 38.2 % LA Volume 45.0 cm 18 - 58 / 22 - 52 cm Ascending Aorta Diameter 3.6 cm DOPPLER AV Peak Velocity 126.0 cm/s AV Peak Gradient 6.4 mmHg AV Mean Velocity 94.6 cm/s AV Mean Gradient 4.0 mmHg AV Velocity Time Integral 22.9 cm LVOT Peak Velocity 70.7 cm/s LVOT Peak Gradient 2.0 mmHg LVOT Mean Velocity 47.9 cm/s LVOT Mean Gradient 1.0 mmHg LVOT Velocity Time Integral 11.4 cm LVOT Stroke Volume 51.6 cm AV Area Cont Eq vti 2.3 cm AV Area Cont Eq pk 2.5 cm MV Peak Velocity 89.2 cm/s MV Peak Gradient 3.2 mmHg MV Mean Velocity 56.5 cm/s MV Mean Gradient 2.0 mmHg Mitral E Point Velocity 56.3 cm/s Mitral A Point Velocity 67.6 cm/s Mitral E to A Ratio 0.8 MV PHT Velocity 67.8 cm/s MV Deceleration [place] 371.0 cm/s MV Pressure Half Time 54.8 ms MV Area PHT 4.0 cm MV Deceleration Time 71.0 ms TR Peak Velocity 267.0 cm/s TR Peak Gradient 28.5 mmHg Right Atrial Pressure 10.0 mmHg Pulmonary Artery Systolic Pressu 38.5 mmHg Right Ventricular Systolic Press 38.5 mmHg PV Peak Velocity 64.5 cm/s PV Peak Gradient 1.7 mmHg PV Mean Velocity 43.9 cm/s PV Mean Gradient 1.0 mmHg PV Velocity Time Integral 9.7 cm LV E' Lateral Velocity 7.8 cm/s Mitral E to LV E' Lateral Ratio 7.2 LV E' Septal Velocity 11.1 cm/s Mitral E to LV E' Septal Ratio 5.1
--- NOTE | 2017-03-19 09:05 | PN- CRCU ---
Subjective HPI/Critical Care Issues: pt seen and examined 4LNC saturating 98% wbc resolved now 10.8 hgb 8.7 declines certain consultants and wants to keep his care conservative Objective Current Medications: Current Medications Sig/Ghulam Start time Last Medication Dose Route Stop Time Status Admin Acetaminophen 650 MG Q6P PRN 03/12 1630 AC PO Albuterol Sulfate 3 ML Q4P PRN 03/12 1115 AC 03/19 INH 0114 Albuterol Sulfate 3 ML Q6H PRN 03/11 0930 AC 03/17 INH 1949 Alprazolam 0.25 MG BID PRN 03/11 0930 DC 03/17 PO 03/18 0929 1942 Ampicillin Sodium/ 1,500 MG Q6H 03/13 2030 AC 03/19 Sulbactam Sodium IV 0853 Sodium Chloride 100 ML Fat Emulsion 300 ML Q24H 03/17 1900 AC 03/18 Intravenous IV 03/19 1858 2046 Furosemide 20 MG ONCE ONE 03/19 0230 DC 03/19 IV 03/19 0231 0237 Levetiracetam 1,000 MG BID 03/18 230 AC 03/18 PO 2252 Levetiracetam 1,000 MG Q12 03/17 2200 DC 03/18 N/A 1 UNIT IV 2136 Lorazepam 0.5 MG BID PRN 03/12 1330 DC 03/15 PO 03/19 1329 0537 Melatonin 5 MG AT BEDTIME 03/16 2200 AC 03/18 PO 2137 Metoprolol Tartrate 6.25 MG BID 03/15 2200 AC 03/18 PO 2137 Midodrine 7.5 MG 0800,1200,1600 03/18 1600 AC 03/19 PO 0845 Midodrine 2.5 MG 0800,1200,1600 03/15 1915 DC 03/18 PO 1208 Morphine Sulfate 2 MG Q6P PRN 03/12 1630 DC 03/15 IV 1203 Norepinephrine 4 MG Q24H 03/17 2230 DC Dextrose/Water 250 ML IV Omeprazole 40 MG DAILY AC 03/13 07 AC 03/19 PO 0743 Ondansetron HCl 4 MG Q6P PRN 03/11 0930 AC IV Phenytoin 200 MG BID 03/18 2300 AC 03/18 PO 2252 Phenytoin 200 MG Q12H 03/18 0030 DC 03/18 Sodium Chloride 50 ML IV 1208 Potassium Chloride 40 MEQ .STK-MED ONE 03/18 0959 DC PO 03/18 1000 Potassium Chloride 40 MEQ ONCE ONE 03/18 0900 DC 03/18 PO 03/18 0901 1002 Potassium Chloride 20 MEQ BID 03/16 1235 AC 03/18 PO 213 Sertraline HCl 150 MG QPM 03/12 2200 AC 03/18 PO 2137 Total Parenteral 1 UNIT 1900 03/17 1900 AC 03/18 Nutrition IV 03/19 Trazodone HCl 50 MG AT BEDTIME 03/11 2200 AC 03/18 PO 213 Vital Signs & I&O Last 24 Hrs of Vitals and I&O: Vital Signs Date Time Temp Pulse Resp B/P B/P Pulse O2 O2 Flow FiO2 Mean Ox Delivery Rate 03/19 0400 98 Nasal 4.0L Cannula 03/19 0118 97 Nasal 4.0L Cannula 03/19 0000 98 Nasal 4.0L Cannula 03/19 0000 97.4 110 20 118/80 98 Nasal 4.0L Cannula 03/18 2137 112 20 112/74 03/18 2000 97 Nasal 4.0L Cannula 03/18 1953 98 Nasal 4.0L Cannula 03/18 1600 95 Nasal 4.0L Cannula 03/18 1600 98.8 102 20 112/76 95 Nasal 4.0L Cannula 03/18 1200 98 Nasal 4.0L Cannula 03/18 1001 96.8 102 32 113/76 03/18 1000 99 BIPAP 30% 03/18 1000 96.8 82 22 102/70 99 BIPAP 30% Intake & Output 03/19 1600 03/19 0800 03/19 0000 Intake Total 649.0 785.0 Output Total 550 Balance 649.0 235.0 Intake, IV 100 100 Intake, Lipid 79.0 102.0 Intake, Oral 100 100 Intake, 370 483 TPN/PPN Output, Urine 550 Exam Other Physical Findings: gen awake heent ncat cvs s1, s2 lungs diminished bs bases abd obese ext edematous Results Last 24 Hrs of Lab Results: Laboratory Tests 03/19/17 0500: Anion Gap 5, Estimated GFR > 60, Glucose 141 H, Calcium 7.8 L, Phosphorus 2.7, Magnesium 1.5 L, Total Bilirubin 0.2, AST 18, ALT 24, Albumin 1.7 L, Prealbumin 6.7 L, Triglycerides 129, CBC w Diff NO MAN DIFF REQ, RBC 3.02 L, MCV 91.8, MCH 28.9, RDW 19.2 H, MPV 8.4, Gran % 85.7 H, Lymphocytes % 8.5 L, Monocytes % 5.5, Eosinophils % 0.2, Basophils % 0.1, Absolute Granulocytes 9.3 H, Absolute Lymphocytes 0.9 L, Absolute Monocytes 0.6, Absolute Eosinophils 0, Absolute Basophils 0, PUBS MCHC 31.5 L Impression/Plan Impression/Plan Impression/Plan: Impression 61 year old man * abdominal mucinous intraepithelial neoplasm - s/p partial resection * 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
--- NOTE | 2017-03-19 09:33 | PN- Att Addend ---
Attending Addendum Attending Brief Note This patient continues to have tachycardia with a moderately decreased EF of 30% on his repeat echo. Begin Digoxin 0.25mg daily. Midodrine is indicated to orthostatic hypotension or autonomic insufficiency leading to hypotension and is contraindicated in the setting of severe organic heart disease. I would stop this medication.
--- NOTE | 2017-03-19 11:27 | PN- Psychiatry ---
Assessment/Plan Impression: Identifying Info: 61-year-old single male known to this service presents to [facility] on 03/10/17 with SOB, fatigue, and dark colored stools. Transferred ti CCU overnight. SUBJECTIVE Patient states he feels "Pretty good." Continues to endorse confusion but feels it is improving. When asked about meeting with MDs and brother to discuss plan of care this AM the patient states it went well and that "I just don't want that orange juice stuff," but cannot clarify what it is. 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 When asked what his medication is treating states "to get me better from swelling." Unable to state risks of treatment. Brief ROS Gait: Not observed Sleep: Fair Appetite: Poor OBJECTIVE Mental Status Exam Presentation/Appearance: Cooperative with evaluation. Hospital garb. Calm. Lying in bed. Orientation: To self, place, and year; unable to name date, month or season Sensorium: Awake and alert Eye contact: Appropriate Affect: Restricted Mood: "Better" Depression: Denies Anxiety: Denies Thought Content: - Denies SI/HI, AH/VH, PI. States and also believes they will not kill themselves. - Denies Hopeless/Helpless Thoughts Thought Process: Primarily linear, endorses some confusion at times Associations: Primarily appropriate, loose at times Speech: Monotone Judgment: Fair Insight: Fair Cognition: Memory: Deficits noted Attention/Concentration: Fair Fund of Knowledge: Adequate Abstractions:[place] MMSE: 19/25 (written response questions omitted due to edema to R hand) indicating mild cognitive impairment with orientation and recall impairment. Most recent . Baseline from previous admissions is . Per nursing report appears improved in terms of mentation and mood. 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 He presents with improved mentation with continued deficits. Again he is able to communicate choices for treatment it is not clear he appreciates the situation and it's consequences, understands the relevant treatment information or displays an ability to reason about treatment options. He continues to lack healthcare decision making capacity. 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 Suggestion: 1. We will continue to evaluate capacity on an ongoing basis as it relates to specific treatment choices. 2. Please defer to next of kin or legal healthcare commercial representative at this time for health care decision making. 3. Continue psychotropics as currently ordered, use lorazepam with caution. 4. Please continue to avoid benzodiazepines, opioid analgesics, and meds with strong anticholinergic properties as much as possible to prevent further confusion. 5. Please initiate the following nonpharmacologic interventions: -Avoid nursing and medical procedures during sleep hours whenever possible - Cluster at night interventions that must be completed as much as possible to minimize sleep disruption - Decrease noise patient area during sleeping hours - Reduce lighting at night - Ensure patient has any sensory aids close by that he regularly uses Thank you for including psychiatry in this case will continue to follow. Subjective Subjective: as above Objective Last 24 Hrs of Vital Signs/I&O Current Medications Sig/Ghulam Start time Last Medication Dose Route Stop Time Status Admin Acetaminophen 650 MG Q6P PRN 03/12 1630 AC PO Albuterol Sulfate 3 ML Q4P PRN 03/12 1115 AC 03/19 INH 0114 Albuterol Sulfate 3 ML Q6H PRN 03/11 0930 AC 03/17 INH 1949 Ampicillin Sodium/ 1,500 MG Q6H 03/13 2030 AC 03/19 Sulbactam Sodium IV 0853 Sodium Chloride 100 ML Fat Emulsion 300 ML Q24H 03/17 1900 AC 03/18 Intravenous IV 03/19 1858 2046 Furosemide 20 MG ONCE ONE 03/19 0230 DC 03/19 IV 03/19 0231 0237 Levetiracetam 1,000 MG BID 03/18 2300 AC 03/19 PO 1016 Levetiracetam 1,000 MG Q12 03/17 2200 DC 03/18 N/A 1 UNIT IV 2136 Lorazepam 0.5 MG BID PRN 03/12 1330 DC 03/15 PO 03/19 1329 0537 Melatonin 5 MG AT BEDTIME 03/16 2200 AC 03/18 PO 2137 Metoprolol Tartrate 6.25 MG BID 03/15 2200 AC 03/19 PO 1015 Midodrine 7.5 MG 0800,1200,1600 03/18 1600 AC 03/19 PO 0845 Midodrine 2.5 MG 0800,1200,1600 03/15 1915 DC 03/18 PO 1208 Morphine Sulfate 2 MG Q6P PRN 03/12 1630 DC 03/15 IV 1203 Omeprazole 40 MG DAILY AC 03/13 0700 AC 03/19 PO 0743 Ondansetron HCl 4 MG Q6P PRN 03/11 0930 AC IV Phenytoin 200 MG BID 03/18 2300 AC 03/19 PO 1015 Phenytoin 200 MG Q12H 03/18 0030 DC 03/18 Sodium Chloride 50 ML IV 1208 Potassium Chloride 20 MEQ BID 03/16 1235 AC 03/19 PO 1016 Sertraline HCl 150 MG QPM 03/12 220 AC 03/18 PO 2137 Total Parenteral 1 UNIT 1900 03/17 190 AC 03/18 Nutrition IV 03/19 1858 204 Trazodone HCl 50 MG AT BEDTIME 03/11 2200 AC 03/18 PO 2136 Laboratory Tests 03/19/17 0500: Anion Gap 5, Estimated GFR > 60, Glucose 141 H, Calcium 7.8 L, Phosphorus 2.7, Magnesium 1.5 L, Total Bilirubin 0.2, AST 18, ALT 24, Albumin 1.7 L, Prealbumin 6.7 L, Triglycerides 129, CBC w Diff NO MAN DIFF REQ, RBC 3.02 L, MCV 91.8, MCH 28.9, RDW 19.2 H, MPV 8.4, Gran % 85.7 H, Lymphocytes % 8.5 L, Monocytes % 5.5, Eosinophils % 0.2, Basophils % 0.1, Absolute Granulocytes 9.3 H, Absolute Lymphocytes 0.9 L, Absolute Monocytes 0.6, Absolute Eosinophils 0, Absolute Basophils 0, PUBS MCHC 31.5 L Vital Signs Date Time Temp Pulse Resp B/P B/P Pulse O2 O2 Flow FiO2 Mean Ox Delivery Rate 03/19 1015 98.2 112 28 137/82 03/19 0800 99 Nasal 4.0L Cannula 03/19 0800 98.2 110 20 120/80 99 Nasal 4.0L Cannula 03/19 0400 98 Nasal 4.0L Cannula 03/19 0118 97 Nasal 4.0L Cannula 03/19 0000 98 Nasal 4.0L Cannula 03/19 0000 97.4 110 20 118/80 98 Nasal 4.0L Cannula 03/187 112 20 112/74 03/18 2000 97 Nasal 4.0L Cannula 03/18 1953 98 Nasal 4.0L Cannula 03/18 1600 95 Nasal 4.0L Cannula 03/18 1600 98.8 102 20 112/76 95 Nasal 4.0L Cannula 03/18 1200 98 Nasal 4.0L Cannula Intake & Output 03/19 1600 03/19 0800 03/19 0000 Intake Total 649.0 785.0 Output Total 550 Balance 649.0 235.0 Intake, IV 100 100 Intake, Lipid 79.0 102.0 Intake, Oral 100 100 Intake, 370 483 TPN/PPN Output, Urine 550
[2017-03-19 16:00] VITALS: BP 106/76
--- NOTE | 2017-03-19 19:25 | NUR ---
AT 1800 UPON ATTEMPTING TO TRANSFER THE PT TO A FLOOR BED THE PT BECAME ANXIOUS, C/0 SOB AND THE HR WAS NOTED TO HAVE INCREASED TO THE 130'S. THE O2 SAT REMAINED IN THE HIGH 90'S. EMOTIONAL SUPPORT GIVEN AND DR FERREIRA NOTIFIED. DR FERREIRA WENT IN TO SPEAK WITH THE PT. AT 1830 THE PT WAS MEDICATED WITH MORPHINE 2MG IV WITH IMMEDIATE DECREASE IN ANXIETY AND SOB. THE HR DECREASED TO THE 110'S. PT TRANSFERRED TO FLOOR BED AT 1850 AND SUBSEQUENTLY TRANSFERRED TO [facility] 183.
[2017-03-19 20:25] VITALS: BP 102/68
[2017-03-20 08:00] LABS: ABSOLUTE BASOPHIL COUNT 0 /CUMM (0.0-0.2); ABSOLUTE EOSINOPHIL COUNT 0.1 /CUMM (0.0-0.7); ABSOLUTE GRANULOCYTE CT 8.2 /CUMM (1.4-6.5); ABSOLUTE LYMPH COUNT 1.2 /CUMM (1.2-3.4); ABSOLUTE MONOCYTE COUNT 0.8 /CUMM (0.10-0.60); BASOPHIL % 0.4 % (0.0-2.0); HEMATOCRIT 26.5 % (42-52); MEAN CORPUSCULAR HGB 29.4 PG (27.0-31.0); MEAN CORPUSCULAR HGB CONC 31.9 G/DL (33.0-37.0); MEAN CORPUSCULAR VOLUME 92.2 FL (80.0-94.0); MEAN PLATELET VOLUME 8.7 FL (7.4-10.4); PLATELET COUNT 296 /CUMM (130-400); RED BLOOD CELL CT 2.87 /CUMM (4.70-6.10); WHITE BLOOD CELL COUNT 10.3 /CUMM (4.8-10.8)
--- NOTE | 2017-03-20 08:47 | PN- Housestaff ---
CASTILLO FLOREZ 03/20/17 0847: Subjective Follow-up For: Septic Shock GI bleed UTI Pseudomyoma peritoneal Seizures Review of Systems Constitutional: Reports: see HPI. Objective Last 24 Hrs of Vital Signs/I&O Vital Signs Date Time Temp Pulse Resp B/P B/P Pulse O2 O2 Flow FiO2 Mean Ox Delivery Rate 03/20 1100 98 Nasal 3.0L Cannula 03/20 1056 105 108/64 03/20 0800 97 Nasal 4.0L Cannula 03/20 0000 Nasal 4.0L Cannula 03/19 2233 106 104/70 03/196 108 102/66 03/19 2056 97 Nasal 4.0L Cannula 03/19 2025 98.4 114 20 102/68 96 Nasal 4.0L Cannula 03/19 1600 98 Nasal 4.0L Cannula 03/19 1600 98.2 106 24 106/76 99 Nasal 4.0L Cannula Intake & Output 03/20 1600 03/20 0800 03/20 0000 Intake Total 1149.6 990.4 650.0 Output Total 550 750 Balance 1149.6 440.4 -100.0 Intake, IV 100 Intake, Lipid 116.8 50.0 Intake, Oral 400 240 350 Intake, 749.6 633.6 150 TPN/PPN Number 1 Bowel Movements Output, Urine 550 750 Physical Exam General Appearance: Alert, Oriented X3, Cooperative, No Acute Distress HEENT: Atraumatic, PERRLA Cardiovascular: Normal S1, Normal S2, No Murmurs Lungs: Decreased breath sounds Abdomen: Normal Bowel Sounds, Soft, No Tenderness Extremities: Significant B/L lower ext edema Current Medications: Current Medications Sig/Ghulam Start time Last Medication Dose Route Stop Time Status Admin Acetaminophen 650 MG .STK-MED ONE 03/20 0319 DC PO 03/20 0320 Acetaminophen 650 MG Q6P PRN 03/12 1630 AC 03/20 PO 0319 Albuterol Sulfate 3 ML Q4P PRN 03/12 1115 AC 03/19 INH 0114 Albuterol Sulfate 3 ML Q6H PRN 03/11 0930 AC 03/19 INH 1155 Ampicillin Sodium/ 1,500 MG Q6H 03/13 2030 DC 03/19 Sulbactam Sodium IV 03/19 Sodium Chloride 100 ML Digoxin 0.25 MG 1700 03/19 1945 AC 03/19 PO 2233 Fat Emulsion 350 ML 03/20 190 AC Intravenous IV 03/21 1859 Fat Emulsion 350 ML Q24H 03/19 190 AC 03/19 Intravenous IV 03/20 1852026 Furosemide 20 MG ONCE ONE 03/20 1545 AC 03/20 IV 03/20 1546 1542 Levetiracetam 1,000 MG BID 03/18 2300 03/20 PO 1056 Lorazepam 0.5 MG ONCE ONE 03/20 1545 AC 03/20 IV 03/20 1546 1542 Magnesium Oxide 400 MG ONE ONE 03/20 0900 DC 03/20 PO 03/20 0901 1055 Melatonin 5 MG AT BEDTIME 03/16 2200 03/19 PO 203 Metoprolol Tartrate 6.25 MG BID 03/15 220 03/20 PO 1056 Midodrine 7.5 MG 0800,1200,1600 03/18 1600 SC 03/19 PO 1629 Morphine Sulfate 2 MG ONCE ONE 03/19 1830 DC 03/19 IV 03/19 183 1829 Omeprazole 40 MG DAILY AC 03/13 0700 03/20 PO 0609 Ondansetron HCl 4 MG Q6P PRN 03/11 0930 IV Phenytoin 200 MG BID 03/18 2300 03/20 PO 1055 Potassium Chloride 20 MEQ BID 03/20 1000 03/20 PO 1056 Potassium Chloride 20 MEQ BID 03/16 1235 SC 03/19 PO 202 Sertraline HCl 150 MG QPM 03/12 220 03/19 PO 203 Total Parenteral 1 UNIT 03/20 190 Nutrition IV 03/21 185 Total Parenteral 1 UNIT 03/17 190 03/19 Nutrition IV 03/20 185 2030 Trazodone HCl 50 MG AT BEDTIME 03/11 220 03/19 PO 203 Last 24 Hrs of Lab/Yuri Results Last 24 Hrs of Labs/Mics: Laboratory Tests 03/20/17 06: Anion Gap 4 L, Estimated GFR > 60, Glucose 112 H, Calcium 7.7 L, Phosphorus 2.9, Magnesium 1.5 L, Total Bilirubin 0.2, AST 20, ALT 28, Albumin 1.6 L, Prealbumin 6.8 L, Triglycerides 86, CBC w Diff NO MAN DIFF REQ, RBC 2.87 L, MCV 92.2, MCH 29.4, RDW 19.0 H, MPV 8.7, Gran % 80.0 H, Lymphocytes % 11.2 L, Monocytes % 7.4, Eosinophils % 1.0, Basophils % 0.4, Absolute Granulocytes 8.2 H, Absolute Lymphocytes 1.2, Absolute Monocytes 0.8 H, Absolute Eosinophils 0.1 , Absolute Basophils 0, PUBS MCHC 31.9 L Assessment/Plan Assessment: Mr Carrion is a 61-year-old man with a 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 In the last 24 hours, vitals stable, who remains on pressor support Problem List/Assessment and Plan #pleural effusion -improved. Now saturating in the high 90s on 2 L oxygen-nasal cannula. -CXR showed BL pleural effusions. Clinically, he is fluid overloaded, but will continue to hold off the lasix for hypotension. -Continue to monitor in telemetery -strict Is and Os, daily weights -Hx of PE in 2013 but this was provoked ,so he doesn't need anticoagulant currently , as his H&H is low -Repeat CXR ordered #septicemia: 1/2 bottles growing e. coli with urine growing e. 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 Unasyn discontinued-completed course Afebrile and leukocytosis slowly improving. Uro consult appreciated. No intervention now as the price is draining. We will consider changing it to a larger [place] if necessary. #Hypotension: -improved blood pressure either due to heart failure due to tachycardia 2/2 severe anemia, vs compression on the IVC by huge intra-abdominal tumor. continue po midodrine low dose metoprolol 6.25 po if needed might consider a dose of lasix as needed after an infusion of albumin to increase diuresis if BP tolerates #Anemia -H/H 8.6/26.5, same as previous few days. -s/p EGD, which did not reveal any bleeding ulcers. Contiues to have dark stools but H/H stable. -Dc levonox #hypoalbuminemia: - Albumin 1.6. Pre-albumin 4 -pt was started on TPN (day 3) # history of epilepsy: -Continue anti-epileptic meds. DVT ppx: mechanical Diet: TPN DNR/DNI POA is most likely is his brother( discussed that with his watch case polisher) Elvin Carrion [phone] Problem List: 1. History of seizures 2. Failure to thrive 3. GI bleed 4. Shock 5. Complicated urinary tract infection 6. Anemia Pain Ratin Pain Location: N/A Pain Goal: Remain pain free Pain Plan: N/A Tomorrow's Labs & Rationales: CBC BEP TODD SOSA,AMIR 03/20/178: Attending MD Review Statement Attending Statement Attending MD Statement: examined this patient, discuss w/resident/PA/TOP STITCHER, agreed w/resident/PA/TOP STITCHER, reviewed EMR data (avail), discussed with nursing Attending Assessment/Plan: Mr Carrion was seen and evalauted by me. 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 Was tx from ICU to med floor VS and labs: reviewed A/P: SOB: h/o pleural effusion -- appreciate Cards input -- repeat CXR, OK to give additional IV furosemide 40 mg 1 and reassess the need for further IV diuresis in the a.m. -- cont strict I&O --Hx of PE in 2013 but this was provoked ,so he doesn't need anticoagulant currently , as his H&H is low ID: Septicemia: --1/2 bottles growing e. coli with urine growing e. 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 On Unasyn 1.5q6h day 5 --Uro consult appreciated. No intervention now as the price is draining. We will consider changing it to a larger [place] if necessary. CVS: -- cont to monitor BP -- Use diurectics judicioulsy -- cont on Tele Heme: -- HCT stable -- cont to monitor GI: hypoalbuminemia: -- low albumin/prealbumin likely due to poor nutrition/absorption -- On TPN Neuro: history of epilepsy --Continue anti-epileptic meds. DVT ppx: mechanical Diet: TPN DNR/DNI
--- NOTE | 2017-03-20 15:57 | PN- Cardiology ---
Subjective Subjective: Breathing appears labored and he admits to feeling short of breath. Objective Vital Signs and I&Os Vital Signs Date Time Temp Pulse Resp B/P B/P Pulse O2 O2 Flow FiO2 Mean Ox Delivery Rate 03/20 1100 98 Nasal 3.0L Cannula 03/20 1056 105 108/64 03/20 0800 97 Nasal 4.0L Cannula 03/20 0000 Nasal 4.0L Cannula 03/19 2233 106 104/70 03/196 108 102/66 03/19 2056 97 Nasal 4.0L Cannula 03/19 2025 98.4 114 20 102/68 96 Nasal 4.0L Cannula Intake & Output 03/20 1600 03/20 0800 03/20 0000 03/19 1600 03/19 0800 03/19 0000 Intake Total 1149.6 990.4 650.0 1101 649.0 785.0 Output Total 834 113 6246 550 Balance 1149.6 440.4 -100.0 86 649.0 235.0 Intake, IV 100 821 100 100 Intake, Lipid 116.8 50.0 79.0 102.0 Intake, Oral 400 240 350 280 100 100 Intake, 749.6 633.6 150 370 483 TPN/PPN Number 1 2 Bowel Movements Output, Urine 994 544 3706 550 Physical Exam: Chronically ill-appearing middle-aged male in mild respiratory distress with nasal oxygen in place. Vital signs: See above. Neck: Positive JVD. Lungs: Basilar crackles. Heart: S1, S2. Extremities: 3+ bilateral lower extremity edema. Current Medications: Current Medications Sig/Ghulam Start time Last Medication Dose Route Stop Time Status Admin Acetaminophen 650 MG .STK-MED ONE 03/20 0319 DC PO 03/20 0320 Acetaminophen 650 MG Q6P PRN 03/12 1630 AC 03/20 PO 0319 Albuterol Sulfate 3 ML Q4P PRN 03/12 1115 AC 03/19 INH 0114 Albuterol Sulfate 3 ML Q6H PRN 03/11 0930 AC 03/19 INH 1155 Ampicillin Sodium/ 1,500 MG Q6H 03/13 2030 DC 03/19 Sulbactam Sodium IV 03/19 Sodium Chloride 100 ML Digoxin 0.25 MG 17003/19 1945 AC 03/19 PO 223 Fat Emulsion 350 ML 03/20 1900 AC Intravenous IV 03/21 1859 Fat Emulsion 350 ML Q24H 03/19 190 AC 03/19 Intravenous IV 03/20 185 202 Furosemide 20 MG ONCE ONE 03/20 1600 DC IV 03/20 1601 Furosemide 20 MG ONCE ONE 03/20 1545 DC 03/20 IV 03/20 1546 1542 Levetiracetam 1,000 MG BID 03/18 2300 AC 03/20 PO 1056 Lorazepam 0.5 MG ONCE ONE 03/20 1545 DC 03/20 IV 03/20 1546 1542 Magnesium Oxide 400 MG ONE ONE 03/20 0900 DC 03/20 PO 03/20 0901 1055 Melatonin 5 MG AT BEDTIME 03/16 220 AC 03/19 PO 203 Metoprolol Tartrate 6.25 MG BID 03/15 220 AC 03/20 PO 1056 Midodrine 7.5 MG 0800,1200,1600 03/18 1600 DC 03/19 PO 1629 Morphine Sulfate 2 MG ONCE ONE 03/19 1830 DC 03/19 IV 03/19 1831 1829 Omeprazole 40 MG DAILY AC 03/13 0700 AC 03/20 PO 0609 Ondansetron HCl 4 MG Q6P PRN 03/11 0930 AC IV Phenytoin 200 MG BID 03/18 2300 AC 03/20 PO 1055 Potassium Chloride 20 MEQ BID 03/20 1000 AC 03/20 PO 1056 Potassium Chloride 20 MEQ BID 03/16 1235 DC 03/19 PO 2023 Sertraline HCl 150 MG QPM 03/12 220 AC 03/19 PO 203 Total Parenteral 1 UNIT 03/20 190 Nutrition IV 03/21 185 Total Parenteral 1 UNIT 03/17 190 AC 03/19 Nutrition IV 03/20 1852029 Trazodone HCl 50 MG AT BEDTIME 03/11 220 AC 03/19 PO 203 Results Last 48 Hrs of Labs/Mics: Laboratory Tests 03/20/17 0612: Anion Gap 4 L, Estimated GFR > 60, Glucose 112 H, Calcium 7.7 L, Phosphorus 2.9, Magnesium 1.5 L, Total Bilirubin 0.2, AST 20, ALT 28, Albumin 1.6 L, Prealbumin 6.8 L, Triglycerides 86, CBC w Diff NO MAN DIFF REQ, RBC 2.87 L, MCV 92.2, MCH 29.4, RDW 19.0 H, MPV 8.7, Gran % 80.0 H, Lymphocytes % 11.2 L, Monocytes % 7.4, Eosinophils % 1.0, Basophils % 0.4, Absolute Granulocytes 8.2 H, Absolute Lymphocytes 1.2, Absolute Monocytes 0.8 H, Absolute Eosinophils 0.1 , Absolute Basophils 0, PUBS MCHC 31.9 L 03/19/17 0500: Anion Gap 5, Estimated GFR > 60, Glucose 141 H, Calcium 7.8 L, Phosphorus 2.7, Magnesium 1.5 L, Total Bilirubin 0.2, AST 18, ALT 24, Albumin 1.7 L, Prealbumin 6.7 L, Triglycerides 129, CBC w Diff NO MAN DIFF REQ, RBC 3.02 L, MCV 91.8, MCH 28.9, RDW 19.2 H, MPV 8.4, Gran % 85.7 H, Lymphocytes % 8.5 L, Monocytes % 5.5, Eosinophils % 0.2, Basophils % 0.1, Absolute Granulocytes 9.3 H, Absolute Lymphocytes 0.9 L, Absolute Monocytes 0.6, Absolute Eosinophils 0, Absolute Basophils 0, PUBS MCHC 31.5 L Recent Imaging Studies: CXR (03/17/2017): Congestive heart failure with large bilateral pleural effusions. Assessment/Plan Assessment/Plan [id number] w/ hx abdominal mucinous epithelial ca s/p exploratory laparoscopy w/ R hemicolectomy & reanastomosis, w/ primary mass left in place due to invasion into bladder wall, PE on enoxaparin, chronic Fe deficiency anemia, Sz disorder, & failure to thrive who presented to the ED w/ worsening SOB, fatigue & melena w/ gm- sepsis & shock who we are again asked to see for worsening SOB. He is clinically and by I/Os volume overloaded w/ known LV systolic dysfunction (EF 30%) and CXR from 03/17/2017 c/w HF, but also has compression of his IVC by the ca which could be an additional reason for the bilateral LE edema. Recommend: * Repeat CXR now. * Replete potassium and magnesium. * Give additional IV furosemide 40 mg 1 and reassess the need for further IV diuresis in the a.m. * Check digoxin level. * DVT prophylaxis. Continue telemetry? Yes
--- NOTE | 2017-03-20 17:05 | RADIOLOGY REPORT ---
EXAMINATION: XR PORTABLE CHEST CLINICAL INFORMATION: Pleural effusion. Shortness of breath. Edema. COMPARISON: Chest done on 03/17/2017. TECHNIQUE: Portable frontal view of the chest was obtained. FINDINGS: Persistent stable large right-sided and moderate to large left-sided pleural effusions are noted. Significant decreased bilateral lung volume is noted likely secondary to compressive atelectasis. Possibility of superimposed pneumonia is not excluded. The cardiac mediastinal silhouette is normally visualized due to obscured outline secondary to large effusions bilaterally. There is a right-sided central part osseous PICC line present, appears in good position, unchanged. Overall, when compared to prior study, no significant change is present. IMPRESSION: Large right and moderate to large left-sided pleural effusions are noted with marked decreased aeration of both lung abdul, appear relatively stable since 03/17/2017.
[2017-03-20 23:46] VITALS: BP 120/66
[2017-03-21 07:00] VITALS: BP 112/70
[2017-03-21 08:53] LABS: ABSOLUTE BASOPHIL COUNT 0.1 /CUMM (0.0-0.2); ABSOLUTE EOSINOPHIL COUNT 0.1 /CUMM (0.0-0.7); ABSOLUTE GRANULOCYTE CT 8.7 /CUMM (1.4-6.5); ABSOLUTE LYMPH COUNT 1.2 /CUMM (1.2-3.4); ABSOLUTE MONOCYTE COUNT 0.8 /CUMM (0.10-0.60); BASOPHIL % 0.6 % (0.0-2.0); EOSINOPHIL % 0.8 % (0-5); GRANULOCYTE % 80.2 % (42.2-75.2); HEMATOCRIT 26.8 % (42-52); MEAN CORPUSCULAR HGB 29.3 PG (27.0-31.0); MEAN CORPUSCULAR HGB CONC 31.8 G/DL (33.0-37.0); MEAN PLATELET VOLUME 9.1 FL (7.4-10.4); PLATELET COUNT 297 /CUMM (130-400); RED BLOOD CELL CT 2.91 /CUMM (4.70-6.10); WHITE BLOOD CELL COUNT 10.9 /CUMM (4.8-10.8)
--- NOTE | 2017-03-21 09:39 | RADIOLOGY REPORT ---
EXAMINATION: XR PORTABLE CHEST CLINICAL INFORMATION: Follow up CHF COMPARISON: Previous chest x-rays most recent from yesterday TECHNIQUE: Portable frontal view of the chest was obtained. FINDINGS: The lung volumes are low. The cardiac silhouette appears enlarged. There is pulmonary venous redistribution, bilateral perihilar airspace disease and pleural effusions suggestive of CHF. This does not appear appreciably changed from yesterday's exam. There is a right upper extremity PICC line with tip projecting over the SVC. IMPRESSION: No change in CHF compared to yesterday's exam.
--- NOTE | 2017-03-21 10:00 | PN- Housestaff ---
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 In the last 24 hours, vitals stable, who remains on pressor support Problem List/Assessment and Plan #pleural effusion -improved. Now saturating in the high 90s on 2 L oxygen-nasal cannula. -CXR showed BL pleural effusions. Clinically, he is fluid overloaded, but will continue to hold off the lasix for hypotension. -Continue to monitor in telemetery -strict Is and Os, daily weights -Hx of PE in 2013 but this was provoked ,so he doesn't need anticoagulant currently , as his H&H is low -Repeat CXR ordered #septicemia: 1/2 bottles growing e. coli with urine growing e. 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 Unasyn discontinued-completed course Afebrile and leukocytosis slowly improving. Uro consult appreciated. No intervention now as the price is draining. We will consider changing it to a larger [place]ian if necessary. #Hypotension: -improved blood pressure either due to heart failure due to tachycardia 2/2 severe anemia, vs compression on the IVC by huge intra-abdominal tumor. continue po midodrine low dose metoprolol 6.25 po if needed might consider a dose of lasix as needed after an infusion of albumin to increase diuresis if BP tolerates #Anemia -H/H 8.6/26.5, same as previous few days. -s/p EGD, which did not reveal any bleeding ulcers. Contiues to have dark stools but H/H stable. -Dc levonox #hypoalbuminemia: - Albumin 1.6. Pre-albumin 4 -pt was started on TPN (day 3) # history of epilepsy: -Continue anti-epileptic meds. DVT ppx: mechanical Diet: TPN DNR/DNI POA is most likely is his brother( discussed that with his immigration case manager) Elvin Carrion [phone]
--- NOTE | 2017-03-21 10:09 | PN- Housestaff ---
RICK SOSA,GRETCHEN 03/21/17 1009: Subjective Follow-up For: Septic Shock GI bleed UTI Pseudomyoma peritoneal Seizures Complaints: SOB Tele-Events Since Last Visit: NSR [id number] Review of Systems Constitutional: Reports: malaise, weakness. Objective Last 24 Hrs of Vital Signs/I&O Vital Signs Date Time Temp Pulse Resp B/P B/P Pulse O2 O2 Flow FiO2 Mean Ox Delivery Rate 03/21 1615 107 102/64 03/21 1458 98.0 107 20 102/64 97 Nasal Cannula 03/21 1051 101 112/70 03/21 0700 97.8 101 26 112/70 98 Nasal 3.0L Cannula 03/21 0000 95 Nasal 3.0L Cannula 03/20 2346 96.9 121 22 120/66 97 Nasal 3.0L Cannula 03/20 2229 118 Intake & Output 03/21 1600 03/21 0800 03/21 0000 Intake Total Output Total 1350 Balance -1350 Number 2 Bowel Movements Output, Urine 1350 Patient 233 lb Weight Weight Tika Lift Measurement Method Physical Exam General Appearance: Alert, Oriented X3, Cooperative, No Acute Distress Skin: No Rashes, No Breakdown, No Significant Lesion Skin Temp/Moisture Exam: Warm/Dry HEENT: Atraumatic, PERRLA, EOMI, Mucous Membr. moist/pink Neck: Supple Cardiovascular: Regular Rate, Normal S1, Normal S2, No Murmurs Lungs: DECREASED BREATH SOUNDS ON BOTH LUNG BASES Abdomen: MARKED DISTENSION Neurological: Normal Speech, Normal Tone Extremities: 2+ PITTING EDEMA Vascular: Normal Pulses, Pulses Symmetrical Current Medications: Current Medications Sig/Ghulam Start time Last Medication Dose Route Stop Time Status Admin Acetaminophen 650 MG Q6P PRN 03/12 1630 AC 03/20 PO 0319 Albuterol Sulfate 3 ML Q4P PRN 03/12 1115 AC 03/19 INH 0114 Albuterol Sulfate 3 ML Q6H PRN 03/11 0930 AC 03/19 INH 1155 Digoxin 0.25 MG 1700 03/19 1945 AC 03/21 PO 1615 Fat Emulsion 350 ML 03/21 1900 AC Intravenous IV 03/22 1859 Fat Emulsion 350 ML 03/20 1900 AC 03/20 Intravenous IV 03/21 185 1856 Fat Emulsion 350 ML Q24H 03/19 1900 DC 03/19 Intravenous IV 03/20 1859 2027 Furosemide 20 MG ONCE ONE 03/21 1430 DC 03/21 IV 03/21 1431 1421 Heparin Sodium/ 25,000 UNIT Q24H 03/21 1345 AC 03/21 Dextrose IV 1618 Dextrose/Water 500 ML Levetiracetam 1,000 MG BID 03/18 2300 AC 03/21 PO 1051 Melatonin 5 MG AT BEDTIME 03/16 2200 AC 03/20 PO 2229 Metoprolol Tartrate 6.25 MG BID 03/15 2200 AC 03/21 PO 1051 Omeprazole 40 MG DAILY AC 03/13 0700 AC 03/21 PO 0559 Ondansetron HCl 4 MG Q6P PRN 03/11 0930 AC IV Phenytoin 200 MG BID 03/18 230 AC 03/21 PO 1050 Potassium Chloride 20 MEQ BID 03/20 1000 AC 03/21 PO 1050 Sertraline HCl 150 MG QPM 03/12 220 AC 03/20 PO 2229 Total Parenteral 1 UNIT 1900 03/21 1900 AC Nutrition IV 03/22 185 Total Parenteral 1 UNIT 1900 03/20 1900 AC 03/20 Nutrition IV 03/21 185 1901 Total Parenteral 1 UNIT 1900 03/17 1900 DC 03/19 Nutrition IV 03/20 185 2030 Trazodone HCl 50 MG AT BEDTIME 03/11 2200 AC 03/20 PO 2229 Last 24 Hrs of Lab/Yuri Results Last 24 Hrs of Labs/Mics: Laboratory Tests 03/21/17 0610: Anion Gap 5, Estimated GFR > 60, BUN/Creatinine Ratio 47.5 H, CBC w Diff NO MAN DIFF REQ, RBC 2.91 L, MCV 92.0, MCH 29.3, RDW 19.0 H, MPV 9.1, Gran % 80.2 H, Lymphocytes % 10.8 L, Monocytes % 7.6, Eosinophils % 0.8, Basophils % 0.6, Absolute Granulocytes 8.7 H, Absolute Lymphocytes 1.2, Absolute Monocytes 0.8 H, Absolute Eosinophils 0.1, Absolute Basophils 0.1, PUBS MCHC 31.8 L, Digoxin 0.5 L Orders Radiology Findings: Abnormal right upper extremity duplex venous study showing evidence of nonocclusive thrombus within the right subclavian, axillary and proximal basilic veins. 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 In the last 24 hours, vitals stable, who remains on pressor support Problem List/Assessment and Plan # RUL thrombosis Nonocclusive thrombus in the right subclavian vein extending to axillary vein and proximal basilic vein Start on heparin drip Vascular surgery improved and recommended starting heparin and followed up on the H&H and stool guaiac Doppler ultrasound on both morning and was ordered to rule out DVT( NO LL DVT) #pleural effusion -CXR showed BL pleural effusions. Clinically, he is fluid overloaded, - Lasix 20 mg push -Continue to monitor in telemetery -strict Is and Os, daily weights -Hx of PE in 2013 but this was provoked ,so he doesn't need anticoagulant currently , as his H&H is low -Repeat CXR ordered which showed no different changes than before #septicemia: 1/2 bottles growing e. coli with urine growing e. 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 Unasyn discontinued-completed course Afebrile and leukocytosis slowly improving. Uro consult appreciated. No intervention now as the price is draining. We will consider changing it to a larger malagasy if necessary. #Hypotension: -improved blood pressure either due to heart failure due to tachycardia 2/2 severe anemia, vs compression on the IVC by huge intra-abdominal tumor. continue po midodrine low dose metoprolol 6.25 po if needed might consider a dose of lasix as needed after an infusion of albumin to increase diuresis if BP tolerates #Anemia -H/H 8.6/26.5, same as previous few days. -s/p EGD, which did not reveal any bleeding ulcers. Contiues to have dark stools but H/H stable. -Dc levonox #hypoalbuminemia: - Albumin 1.6. Pre-albumin 4 -pt was started on TPN (day 6) # history of epilepsy: -Continue anti-epileptic meds. DVT ppx: mechanical Diet: TPN DNR/DNI POA is most likely is his brother( discussed that with his rehabilitation case coordinator) Elvin Carrion [phone] Problem List: 1. DVT of upper extremity (deep vein thrombosis) 2. Anemia 3. Hypoalbuminemia 4. GI bleed 5. Shock 6. Complicated urinary tract infection 7. 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 Dyspnea 11. Sepsis Pain Ratin Pain Location: N/A Pain Goal: Remain pain free Pain Plan: Tylenol Morphine Tomorrow's Labs & Rationales: CC BEP DVT/Prophylaxis: pharmacological TODD SOSA,AMIR 03/21/17 1344: Attending MD Review Statement Attending Statement Attending MD Statement: examined this patient, discuss w/resident/PA/RODBUSTER, agreed w/resident/PA/RODBUSTER, reviewed EMR data (avail), discussed with nursing Attending Assessment/Plan: Mr. Carrion was seen and evaluated. Chart reviewed. Found to have non-occlusive RUE DVT at PICC site. Pt had PICC line for TPN since December. D/w Vascular, will start heparin and cont to monitor HCT as pt also have +guaic. Plan to check Dopplers to r/o LE DVT. Finding d/w the patient also, team to inform the family member -- cont to check HCT -- cont to monitor -- compression stockings -- DNR/DNI -- rest of the plan as per resident's note
--- NOTE | 2017-03-21 10:45 | NUR ---
10:45 AM - NOTIFIED DR FAMILIA BLOOM OF RUE EDEMA +4 THAT APPEARS TO BE WORSENING SINCE LAST ASSESSMENT YESTERDAY. EDEMA PRESENTS FROM UPPER ARM TO HAND & FINGERS. PT C/O LIMITED ROM OF FINGERS AT THIS TIME. DENIES PAIN. ARM ELEVATED ON PILLOWS. PICC SITE HAS NO REDNESS. UNABLE TO GET BLOOD RETURN FROM [place] - DR AILYN BLOOM AWARE. TPN ON HOLD AT THIS TIME. ACCUCHECKS DONE FREQUENTLY WHILE WAITING FOR RUE ULTRASOUND. PERIPHERAL LINE PLACED #22 LH. WILL CONTINUE TO MONITOR AT THIS TIME.
--- NOTE | 2017-03-21 12:15 | ULTRASOUND REPORT ---
EXAMINATION: US TRIPLEX UPPER EXTREMITY, RIGHT CLINICAL INFORMATION: 61-year-old male with right upper extremity swelling. Patient has a PICC line on the right. COMPARISON: None TECHNIQUE: Color-flow triplex imaging with spectral analysis and compression Doppler were performed on the upper extremity. FINDINGS: Nonocclusive thrombus is present within the right subclavian, axillary vein and minimally extending into the basilic vein as well. Extensive edema is noted in the location of the cephalic vein which was not visualized. The remainder of the right upper extremity veins including the right internal jugular vein appear patent. IMPRESSION: Abnormal right upper extremity duplex venous study showing evidence of nonocclusive thrombus within the right subclavian, axillary and proximal basilic veins. This critical result was discussed with Natty Alas at 12:02 PM on 03/21/2017 and it was ascertained that the content and urgency of the report was understood at the time of direct communication.
--- NOTE | 2017-03-21 14:27 | Event Note ---
Event Note Event Note: This morning the patient right arm was swollen more than usual. Ultrasound on the right upper limb showed nonocclusive thrombus of the subclavian vein, extending into the axillary vein. Doppler ultrasound of the lower limb was performed to rule out DVT in LL as well. The case was discussed with vascular surgeryand they recommend starting anticoagulation with no urgent need to take the PICC line out. The case was also discussed with Dr. Conrad and Dr. Ankita Tolbert. His POA Mr. Elvin Carrion was informed about his condition as per the patient request. We will further discuss the type of anticoagulation with Dr. Miguelangel Tolbert.
--- NOTE | 2017-03-21 14:38 | ULTRASOUND REPORT ---
EXAMINATION: US TRIPLEX OF LOWER EXTREMITIES, BILATERAL CLINICAL INFORMATION: Bilateral leg edema and swelling. Leg tenderness. History of positive right upper extremity DVT 03/21/2017. COMPARISON: None TECHNIQUE: Color-flow triplex imaging with spectral analysis and compression Doppler were performed on the lower extremities. FINDINGS: Right leg: Respiratory variation, normal compression and augmented flow are noted throughout the right lower extremity. The visualized common femoral vein, superficial femoral vein, profunda femoral vein, popliteal vein and midcalf peroneal and posterior tibial venous segments show no evidence of deep venous thrombosis. There is no Pulido's cyst. Left leg: Evaluation of the left leg is limited secondary to difficulty tolerating the examination. The tool and die engineer was unable to access the left popliteal fossa. Respiratory variation, normal compression and augmented flow are noted throughout the left lower extremity. The visualized common femoral vein, superficial femoral vein, and profunda femoral vein venous segments show no evidence of deep venous thrombosis. The popliteal vein and calf veins are not assessed. There is no Pulido's cyst. IMPRESSION: 1. Limited evaluation of the distal left lower extremity including popliteal vein and calf veins. These were not assessed on examination. No evidence of DVT within the proximal left leg. 2. No DVT in the right lower extremity.
[2017-03-21 14:58] VITALS: BP 102/64
--- NOTE | 2017-03-21 16:56 | PN- Cardiology ---
Objective Vital Signs and I&Os Vital Signs Date Time Temp Pulse Resp B/P B/P Pulse O2 O2 Flow FiO2 Mean Ox Delivery Rate 03/21 1615 107 102/64 03/21 1458 98.0 107 20 102/64 97 Nasal Cannula 03/21 1051 101 112/70 03/21 0700 97.8 101 26 112/70 98 Nasal 3.0L Cannula 03/21 0000 95 Nasal 3.0L Cannula 03/20 2346 96.9 121 22 120/66 97 Nasal 3.0L Cannula 03/20 2229 118 03/20 1711 120 130/80 Intake & Output 03/21 1600 03/21 0800 03/21 0000 03/20 1600 03/20 0800 03/20 0000 Intake Total 1149.6 990.4 650.0 Output Total 1350 850 550 750 Balance -1350 299.6 440.4 -100.0 Intake, IV 100 Intake, Lipid 116.8 50.0 Intake, Oral 400 240 350 Intake, 749.6 633.6 150 TPN/PPN Number 2 1 Bowel Movements Output, Urine 1350 850 550 750 Patient 233 lb Weight Weight Tika Lift Measurement Method Current Medications: Current Medications Sig/Ghulam Start time Last Medication Dose Route Stop Time Status Admin Acetaminophen 650 MG Q6P PRN 03/12 1630 AC 03/20 PO 0319 Albuterol Sulfate 3 ML Q4P PRN 03/12 1115 AC 03/19 INH 0114 Albuterol Sulfate 3 ML Q6H PRN 03/11 0930 AC 03/19 INH 1155 Digoxin 0.25 MG 1700 03/19 1945 AC 03/21 PO 1615 Fat Emulsion 350 ML 03/21 1900 AC Intravenous IV 03/22 1859 Fat Emulsion 350 ML 03/20 1900 AC 03/20 Intravenous IV 03/21 1859 1856 Fat Emulsion 350 ML Q24H 03/19 1900 DC 03/19 Intravenous IV 03/20 1859 2027 Furosemide 20 MG ONCE ONE 03/21 1430 DC 03/21 IV 03/21 1431 1421 Heparin Sodium/ 25,000 UNIT Q24H 03/21 1345 AC 03/21 Dextrose IV 1618 Dextrose/Water 500 ML Levetiracetam 1,000 MG BID 03/18 2300 AC 03/21 PO 1051 Melatonin 5 MG AT BEDTIME 03/16 2200 AC 03/20 PO 2229 Metoprolol Tartrate 6.25 MG BID 03/15 220 AC 03/21 PO 1051 Omeprazole 40 MG DAILY AC 03/13 07 AC 03/21 PO 0559 Ondansetron HCl 4 MG Q6P PRN 03/11 0930 AC IV Phenytoin 200 MG BID 03/18 230 AC 03/21 PO 1050 Potassium Chloride 20 MEQ BID 03/20 1000 AC 03/21 PO 1050 Sertraline HCl 150 MG QPM 03/12 2200 AC 03/20 PO 2229 Total Parenteral 1 UNIT 03/21 190 AC Nutrition IV 03/22 185 Total Parenteral 1 UNIT 03/20 190 AC 03/20 Nutrition IV 03/21 185 190 Total Parenteral 1 UNIT 03/17 190 DC 03/19 Nutrition IV 03/20 Trazodone HCl 50 MG AT BEDTIME 03/11 2200 AC 03/20 PO 2229 Results Last 48 Hrs of Labs/Mics: Laboratory Tests 03/21/17 0610: Anion Gap 5, Estimated GFR > 60, BUN/Creatinine Ratio 47.5 H, CBC w Diff NO MAN DIFF REQ, RBC 2.91 L, MCV 92.0, MCH 29.3, RDW 19.0 H, MPV 9.1, Gran % 80.2 H, Lymphocytes % 10.8 L, Monocytes % 7.6, Eosinophils % 0.8, Basophils % 0.6, Absolute Granulocytes 8.7 H, Absolute Lymphocytes 1.2, Absolute Monocytes 0.8 H, Absolute Eosinophils 0.1, Absolute Basophils 0.1, PUBS MCHC 31.8 L, Digoxin 0.5 L 03/20/17 0612: Anion Gap 4 L, Estimated GFR > 60, Glucose 112 H, Calcium 7.7 L, Phosphorus 2.9, Magnesium 1.5 L, Total Bilirubin 0.2, AST 20, ALT 28, Albumin 1.6 L, Prealbumin 6.8 L, Triglycerides 86, CBC w Diff NO MAN DIFF REQ, RBC 2.87 L, MCV 92.2, MCH 29.4, RDW 19.0 H, MPV 8.7, Gran % 80.0 H, Lymphocytes % 11.2 L, Monocytes % 7.4, Eosinophils % 1.0, Basophils % 0.4, Absolute Granulocytes 8.2 H, Absolute Lymphocytes 1.2, Absolute Monocytes 0.8 H, Absolute Eosinophils 0.1 , Absolute Basophils 0, PUBS MCHC 31.9 L Recent Imaging Studies: RUE Doppler ultrasound (03/21/2017): Abnormal right upper extremity duplex venous study showing evidence of nonocclusive thrombus within the right subclavian, axillary and proximal basilic veins. Bilateral lower extremity Doppler ultrasound (03/21/2017): Limited evaluation of the distal left lower extremity including popliteal vein and calf veins. These were not assessed on examination. No evidence of DVT within the proximal left leg. No DVT in the right lower extremity. CXR (03/21/2017):The lung volumes are low. The cardiac silhouette appears enlarged. There is pulmonary venous redistribution, bilateral perihilar airspace disease and pleural effusions suggestive of CHF. This does not appear appreciably changed from yesterday's exam. There is a right upper extremity PICC line with tip projecting over the SVC. Assessment/Plan Assessment/Plan [id number] w/ hx abdominal mucinous epithelial ca s/p exploratory laparoscopy w/ R hemicolectomy & reanastomosis, w/ primary mass left in place due to invasion into bladder wall, PE on enoxaparin, chronic Fe deficiency anemia, Sz disorder, & failure to thrive who presented to the ED w/ worsening SOB, fatigue & melena w/ gm- sepsis & shock who we are again asked to see for worsening SOB. He is clinically and by I/Os volume overloaded w/ known LV systolic dysfunction (EF 30%) and CXR from 03/17/2017 c/w HF, but also has compression of his IVC by the ca which could be an additional reason for the bilateral LE edema. Also now evidence of nonocclusive right upper extremity DVT by Doppler ultrasound. Recommend: * Consider repeat CXR in a.m. following a good diuresis. * Replete potassium and magnesium. * Give additional IV furosemide as BP tolerates and reassess the need for further IV diuresis in the a.m. * Continue anticoagulation for his RUE nonocclusive thrombus.
--- NOTE | 2017-03-21 18:43 | NUR ---
16:30 PM - ON ASSESSMENT PT IS DROWSEY/AROUSABLE & UNABLE TO STAY AWAKE. C/O DIZZINESS. ACCUCHECK DONE AT THIS TIME IS 85. DR AILYN BLOOM MADE AWARE & TPN RESTARTED AT THIS TIME THROUGH PICC AFTER CLARIFYING WITH MD. ABLE TO GET BLOOD RETURN FROM BOTH PORTS AT THIS TIME. HEPARIN GTT STARTED PER PROTOCOL THROUGH PERIPHERAL IV PER DR AILYN BLOOM AT THIS TIME. NEXT PTT DUE 03/21/17 @ 22:30 PM. 17:00 PM- REASSESSMENT- PT ALERT & ORIENTED. STATES, "I FEEL MUCH BETTER." PICC SITE REASSESSED WITH NO CHANGE. NO INFILTRATION NOTED IN PERIPHERAL IV. WILL CONTINUE TO MONITOR.
[2017-03-21 22:00] VITALS: BP 108/58
[2017-03-21 22:56] LABS: ABSOLUTE BASOPHIL COUNT 0.1 /CUMM (0.0-0.2); ABSOLUTE EOSINOPHIL COUNT 0.2 /CUMM (0.0-0.7); ABSOLUTE GRANULOCYTE CT 10.8 /CUMM (1.4-6.5); ABSOLUTE LYMPH COUNT 2.4 /CUMM (1.2-3.4); BASOPHIL % 0.4 % (0.0-2.0); EOSINOPHIL % 1.6 % (0-5); GRANULOCYTE % 74.2 % (42.2-75.2); HEMATOCRIT 30.4 % (42-52); MEAN CORPUSCULAR HGB 29.4 PG (27.0-31.0); MEAN CORPUSCULAR HGB CONC 31.8 G/DL (33.0-37.0); MEAN CORPUSCULAR VOLUME 92.4 FL (80.0-94.0); MEAN PLATELET VOLUME 8.7 FL (7.4-10.4); PLATELET COUNT 363 /CUMM (130-400); RBC DISTRIBUTION WIDTH 19.6 % (11.5-14.5); RED BLOOD CELL CT 3.29 /CUMM (4.70-6.10); WHITE BLOOD CELL COUNT 14.6 /CUMM (4.8-10.8)
[2017-03-21 23:05] LABS: PTT 32 SEC (25-37)
[2017-03-21 23:13] VITALS: BP 108/66
[2017-03-22 06:00] VITALS: BP 106/58
[2017-03-22 08:36] LABS: ABSOLUTE BASOPHIL COUNT 0.1 /CUMM (0.0-0.2); ABSOLUTE EOSINOPHIL COUNT 0.1 /CUMM (0.0-0.7); ABSOLUTE GRANULOCYTE CT 8.4 /CUMM (1.4-6.5); ABSOLUTE LYMPH COUNT 1.2 /CUMM (1.2-3.4); BASOPHIL % 0.6 % (0.0-2.0); EOSINOPHIL % 1.3 % (0-5); GRANULOCYTE % 78.1 % (42.2-75.2); HEMATOCRIT 26.6 % (42-52); MEAN CORPUSCULAR HGB 29.5 PG (27.0-31.0); MEAN CORPUSCULAR HGB CONC 31.8 G/DL (33.0-37.0); MEAN CORPUSCULAR VOLUME 92.8 FL (80.0-94.0); MEAN PLATELET VOLUME 9.3 FL (7.4-10.4); PLATELET COUNT 292 /CUMM (130-400); RBC DISTRIBUTION WIDTH 19.1 % (11.5-14.5); RED BLOOD CELL CT 2.87 /CUMM (4.70-6.10); WHITE BLOOD CELL COUNT 10.7 /CUMM (4.8-10.8)
[2017-03-22 08:43] LABS: PTT 60 SEC (25-37)
--- NOTE | 2017-03-22 08:47 | PN- Housestaff ---
RICK SOSA,GRETCHEN 03/22/17 0847: Subjective Follow-up For: RUE DVT Septic Shock GI bleed UTI Pseudomyoma peritoneal Seizures Complaints: SOB RUE SWELLING Tele-Events Since Last Visit: NSR [id number] Subjective: I personally examined the patient at bedside he was laying down in bed and was having shortness of breath, looks lethargic and pale, on nasal oxygen Review of Systems Constitutional: Reports: malaise, weakness. EENTM: Denies: no symptoms. Cardiovascular: Denies: no symptoms. Respiratory: Denies: no symptoms. Gastrointestinal: Reports: distention. Denies: see HPI. Skin: Denies: no symptoms. Objective Last 24 Hrs of Vital Signs/I&O Vital Signs Date Time Temp Pulse Resp B/P B/P Pulse O2 O2 Flow FiO2 Mean Ox Delivery Rate 03/22 1051 99 Nasal 3.0L Cannula 03/22 1025 101 110/78 03/22 1025 101 110/78 03/22 0800 Nasal 3.5L Cannula 03/22 0658 97.7 101 22 98 Nasal Cannula 03/22 0600 106/58 03/22 0000 Nasal 4.0L Cannula 03/21 2313 98.9 101 24 108/66 97 Nasal 3.0L Cannula 03/21 2212 130 108/58 03/21 2200 98.1 118 24 108/58 96 Nasal 4.0L Cannula 03/21 1615 107 102/64 03/21 1458 98.0 107 20 102/64 97 Nasal Cannula Intake & Output 03/22 1600 03/22 0800 03/22 0000 Intake Total 1071.6 1598.2 Output Total 400 3000 Balance 671.6 -1401.8 Intake, IV 272 156 Intake, Lipid 116.0 87.0 Intake, Oral 50 880 Intake, 633.6 475.2 TPN/PPN Output, Urine 400 3000 Patient 231 lb Weight Weight Tika Lift Measurement Method Physical Exam General Appearance: Alert, Oriented X3, Cooperative, No Acute Distress Skin: No Rashes, No Breakdown, No Significant Lesion Skin Temp/Moisture Exam: Warm/Dry Sepsis Skin Exam (color): Normal for Ethnicity HEENT: Atraumatic, PERRLA, EOMI, Mucous Membr. 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 In the last 24 hours, vitals stable, who remains on pressor support Problem List/Assessment and Plan # RUL thrombosis Nonocclusive thrombus in the right subclavian vein extending to axillary vein and proximal basilic vein Continue on heparin drip Vascular surgery recommended starting heparin and followed up on the H&H and stool guaiac Doppler ultrasound on both LL ruled out DVT #pleural effusion -CXR showed bilateral pleural effusions. Clinically, he is fluid overloaded, - Lasix 20 mg push -Continue to monitor in telemetery -strict Is and Os, daily weights -Hx of PE in 2013 but this was provoked ,so he doesn't need anticoagulant currently , as his H&H is low -Repeat CXR ordered which showed no different changes than before #septicemia: 1/2 bottles growing e. coli with urine growing e. 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 Unasyn discontinued-completed course Afebrile and leukocytosis slowly improving. Uro consult appreciated. No intervention now as the price is draining. We will consider changing it to a larger romanian if necessary. #Hypotension: -improved blood pressure either due to heart failure due to tachycardia 2/2 severe anemia, vs compression on the IVC by huge intra-abdominal tumor. continue po midodrine low dose metoprolol 6.25 po if needed might consider a dose of lasix as needed after an infusion of albumin to increase diuresis if BP tolerates #Anemia -H/H 8.5/26.6, same as previous few days. -s/p EGD, which did not reveal any bleeding ulcers. Contiues to have dark stools but H/H stable. -Dc levonox #hypoalbuminemia: - Albumin 1.6. Pre-albumin 4 -pt was started on TPN (day 7) # history of epilepsy: -Continue anti-epileptic meds. DVT ppx: mechanical Diet: TPN DNR/DNI POA is most likely his brother( discussed that with his bottle caser) Elvin Carrion [phone] Problem List: 1. DVT of upper extremity (deep vein thrombosis) 2. Anemia 3. Hypoalbuminemia 4. GI bleed 5. Shock 6. Complicated urinary tract infection 7. History of seizures 8. Pseudomyxoma peritonei 9. Dyspnea 10. Sepsis Pain Ratin Pain Location: n/a Pain Goal: Remain pain free Pain Plan: Tylenol Morphine Tomorrow's Labs & Rationales: PTT CBC BEP DVT/Prophylaxis: mechanical, pharmacological KAROLINA CHONG MD 03/22/17 0924: Attending MD Review Statement Attending Statement Attending MD Statement: examined this patient, discuss w/resident/PA/CAR PORTER, agreed w/resident/PA/CAR PORTER, reviewed EMR data (avail), discussed with nursing, discussed with case mgmt, amended to note Attending Assessment/Plan: The patient was seen and discussed with house staff. RUE DVT noted - now on anticoagulation again (has h/o PE/DVT in past). No LE DVT. Concern regarding blood loss when on Coumadin previously. Will follow H/H. Nutrition to evaluate nutritional needs as there has been continued decline in status. Repeat ECHO also showed 30% EF (no focal WMA). Will discuss/update the patient's brother.
[2017-03-22 10:25] VITALS: BP 110/78
[2017-03-22 16:00] VITALS: BP 108/72
[2017-03-22 19:52] LABS: PTT 79 SEC (25-37)
[2017-03-23 00:17] VITALS: BP 98/54
--- NOTE | 2017-03-23 07:19 | PN- Housestaff ---
See Addendum Subjective Follow-up For: RUE DVT Septic Shock GI bleed UTI Pseudomyoma peritoneal Seizures Complaints: SOB, RUE SWELLING Tele-Events Since Last Visit: NSR : [id number] Subjective: I have personally examined the patient at the bedside he was lying down in bed on nasal oxygen in no acute distress and complained off shortness of breath Review of Systems Constitutional: Reports: malaise, weakness. EENTM: Denies: no symptoms. Cardiovascular: Denies: see HPI. Respiratory: Reports: short of breath. Gastrointestinal: Denies: see HPI. Genitourinary: Denies: see HPI. Musculoskeletal: Denies: no symptoms. Skin: Denies: no symptoms. Objective Last 24 Hrs of Vital Signs/I&O Vital Signs Date Time Temp Pulse Resp B/P B/P Pulse O2 O2 Flow FiO2 Mean Ox Delivery Rate 03/23 1008 96.7 94 16 100/70 03/23 0925 94 Nasal 3.0L Cannula 03/23 0914 94 Nasal 3.0L Cannula 03/23 0800 94 Nasal 3.5L Cannula 03/23 0728 96.7 94 16 100/70 98 Nasal 3.0L Cannula 03/23 0017 97.7 101 20 98/54 98 Nasal 3.0L Cannula 03/23 0000 Nasal 3.5L Cannula 03/22 2120 101 102/70 03/22 2100 99 Nasal 3.0L Cannula 03/22 1628 108 108/72 03/22 1600 97.8 89 16 108/72 97 Nasal 2.0L Cannula 03/22 1539 Nasal 2.0L Cannula Intake & Output 03/23 1600 03/23 0800 03/23 0000 Intake Total 703.2 922.0 Output Total 650 450 Balance 53.2 472.0 Intake, IV 177.2 Intake, Lipid 116.8 108.0 Intake, Oral 120 120 Intake, 466.4 516.8 TPN/PPN Number 1 Bowel Movements Output, Urine 650 450 Patient 231 lb Weight Physical Exam General Appearance: Alert, Oriented X3, Cooperative, No Acute Distress Skin: No Rashes, No Breakdown, No Significant Lesion Skin Temp/Moisture Exam: Warm/Dry HEENT: Atraumatic, PERRLA, EOMI, Mucous Membr. 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 In the last 24 hours, vitals stable, who remains on pressor support Problem List/Assessment and Plan # RUL thrombosis Nonocclusive thrombus in the right subclavian vein extending to axillary vein and proximal basilic vein Continue on heparin drip Vascular surgery recommended starting heparin and followed up on the H&H and stool guaiac Doppler ultrasound on both LL ruled out DVT #pleural effusion -CXR showed bilateral pleural effusions. Clinically, he is fluid overloaded, - Lasix 20 mg push -Continue to monitor in telemetery -strict Is and Os, daily weights -Hx of PE in 2013 but this was provoked ,so he doesn't need anticoagulant currently , as his H&H is low -Repeat CXR ordered which showed no different changes than before #septicemia: 1/2 bottles growing e. coli with urine growing e. 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 Unasyn discontinued-completed course Afebrile and leukocytosis slowly improving. Uro consult appreciated. No intervention now as the price is draining. We will consider changing it to a larger ge[place]ian if necessary. #Hypotension: -improved blood pressure either due to heart failure due to tachycardia 2/2 severe anemia, vs compression on the IVC by huge intra-abdominal tumor. continue po midodrine low dose metoprolol 6.25 po if needed might consider a dose of lasix as needed after an infusion of albumin to increase diuresis if BP tolerates #Anemia -H/H 8.7/26.9, same as previous few days. -s/p EGD, which did not reveal any bleeding ulcers. Contiues to have dark stools but H/H stable. #hypoalbuminemia: - Albumin 1.6. Pre-albumin 4 -pt was started on TPN (day 8) # history of epilepsy: -Continue anti-epileptic meds. DVT ppx: mechanical Diet: TPN DNR/DNI POA is most likely his brother( discussed that with his patient case manager) Elvin Carrion [phone] Problem List: 1. DVT of upper extremity (deep vein thrombosis) 2. Anemia 3. Hypoalbuminemia 4. GI bleed 5. Shock 6. Complicated urinary tract infection 7. History of seizures 8. Pseudomyxoma peritonei 9. Sepsis 10. Dyspnea Pain Ratin Pain Location: N/A Pain Goal: Remain pain free Pain Plan: TYLENOL Oxycodone Tomorrow's Labs & Rationales: APTT: ON HEPARIN FOR DVT CBC: ANEMIA DVT/Prophylaxis: pharmacological
[2017-03-23 07:28] VITALS: BP 100/70
[2017-03-23 08:28] LABS: PTT 39 SEC (25-37)
[2017-03-23 08:33] LABS: ABSOLUTE BASOPHIL COUNT 0 /CUMM (0.0-0.2); ABSOLUTE EOSINOPHIL COUNT 0.1 /CUMM (0.0-0.7); ABSOLUTE GRANULOCYTE CT 8.3 /CUMM (1.4-6.5); ABSOLUTE LYMPH COUNT 1.3 /CUMM (1.2-3.4); ABSOLUTE MONOCYTE COUNT 0.7 /CUMM (0.10-0.60); BASOPHIL % 0.4 % (0.0-2.0); EOSINOPHIL % 1.1 % (0-5); GRANULOCYTE % 79.3 % (42.2-75.2); HEMATOCRIT 26.9 % (42-52); MEAN CORPUSCULAR HGB 29.8 PG (27.0-31.0); MEAN CORPUSCULAR HGB CONC 32.4 G/DL (33.0-37.0); MEAN CORPUSCULAR VOLUME 91.9 FL (80.0-94.0); MEAN PLATELET VOLUME 9.1 FL (7.4-10.4); PLATELET COUNT 301 /CUMM (130-400); RBC DISTRIBUTION WIDTH 19.7 % (11.5-14.5); RED BLOOD CELL CT 2.93 /CUMM (4.70-6.10); WHITE BLOOD CELL COUNT 10.5 /CUMM (4.8-10.8)
--- NOTE | 2017-03-23 10:30 | NUR ---
PTT DRAWN AT 0655 39. PATIENT BOLUS HEPARIN 7875 UNITS. RATE INCREASE TO 42.7ML/HR. NEXT PTT 03/23/17 AT 1630.PER HEPARIN PROTOCOL. NO ACTIVE BLEEDING NOTED. CONTINUE WITH HEPARIN PROTOCOL.
[2017-03-23 14:48] VITALS: BP 102/70
--- NOTE | 2017-03-23 16:09 | PN- Psychiatry ---
Assessment/Plan Impression: Identifying Info: 61-year-old single male known to this service presents to [facility] on 03/10/17 with SOB, fatigue, and dark colored stools. Interviewed today on telemetry. SUBJECTIVE Patient presents today without complaint. Continues to endorse confusion. Unable to state current goals of care. Is able to correctly identify that he is "getting nutrition from a bag." Brief ROS Gait: Not observed Sleep: Fair Appetite: Poor OBJECTIVE Mental Status Exam Presentation/Appearance: Cooperative with evaluation. Hospital garb. Calm. Lying in bed. Orientation: To self, place, month and year, not date Sensorium: Somnolent but easily aroused Eye contact: Appropriate Affect: Restricted Mood: Euthymic Depression: Denies Anxiety: Denies Thought Content: - Denies SI/HI, AH/VH, PI. States and also believes they will not kill themselves. - Denies Hopeless/Helpless Thoughts Thought Process: Primarily linear, endorses some confusion at times Associations: Primarily appropriate, loose at times Speech: Monotone Judgment: Fair Insight: Fair Cognition: Memory: Deficits noted Attention/Concentration: Fair Fund of Knowledge: Adequate Abstractions:[place] MMSE: Not completed today, most recent (written response questions omitted due to edema to R hand) indicating mild cognitive impairment with orientation and recall impairment. Baseline from previous admissions is . ASSESSMENT 61-year-old single male with history of childhood encephalitis and Pseudomyxoma peritonei awaiting surgery a [place] presents again with anxiety, mild confusion and indecision. He presents with improved mentation with continued deficits. Again he is able to communicate choices for treatment it is not clear he appreciates the situation and it's consequences, understands the relevant treatment information or displays an ability to reason about treatment options. 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 Suggestion: 1. We will continue to evaluate capacity on an ongoing basis as it relates to specific treatment choices. 2. Please defer to next of kin or legal healthcare industrial relations representative at this time for health care decision making. 3. Continue psychotropics as currently ordered, use lorazepam with caution. 4. Please continue to avoid benzodiazepines, opioid analgesics, and meds with strong anticholinergic properties as much as possible to prevent further confusion. 5. Please initiate the following nonpharmacologic interventions: -Avoid nursing and medical procedures during sleep hours whenever possible - Cluster at night interventions that must be completed as much as possible to minimize sleep disruption - Decrease noise patient area during sleeping hours - Reduce lighting at night - Ensure patient has any sensory aids close by that he regularly uses Thank you for including psychiatry in this case will continue to follow. Subjective Subjective: as above Objective Last 24 Hrs of Vital Signs/I&O Current Medications Sig/Ghulam Start time Last Medication Dose Route Stop Time Status Admin Acetaminophen 650 MG Q6P PRN 03/12 1630 AC 03/20 PO 0319 Albuterol Sulfate 3 ML Q4P PRN 03/12 1115 DC 03/19 INH 0114 Albuterol Sulfate 3 ML Q6H PRN 03/11 0930 AC 03/19 INH 1155 Digoxin 0.25 MG 17003/19 1945 AC 03/22 PO 1628 Fat Emulsion 350 ML 03/23 190 AC Intravenous IV 03/24 1859 Fat Emulsion 350 ML Q24H 03/22 1900 AC 03/22 Intravenous IV 03/23 1858 1936 Fat Emulsion 350 ML 03/21 190 DC 03/21 Intravenous IV 03/22 185 1909 Heparin Sodium/ 25,000 UNIT Q24H 03/21 1345 AC 03/22 Dextrose IV 1020 Dextrose/Water 500 ML Levetiracetam 1,000 MG BID 03/18 2300 AC 03/23 PO 1008 Melatonin 5 MG AT BEDTIME 03/16 2200 AC 03/22 PO 2115 Metoprolol Tartrate 6.25 MG BID 03/15 220 AC 03/23 PO 1008 Omeprazole 40 MG DAILY AC 03/13 07 AC 03/23 PO 0558 Ondansetron HCl 4 MG Q6P PRN 03/11 0930 AC IV Phenytoin 200 MG BID 03/18 230 AC 03/23 PO 1008 Potassium Chloride 20 MEQ BID 03/20 1000 AC 03/23 PO 1008 Sertraline HCl 150 MG QPM 03/12 220 AC 03/22 PO 2115 Total Parenteral 1 UNIT 03/23 190 AC Nutrition IV 03/24 1859 Total Parenteral 1 UNIT 03/22 1900 AC 03/22 Nutrition IV 03/23 Total Parenteral 1 UNIT 03/21 DC 03/21 Nutrition IV 03/22 Trazodone HCl 50 MG AT BEDTIME 03/11 2200 AC 03/22 PO 2116 Laboratory Tests 03/23/17 1600: APTT Pending 03/23/17 0655: Anion Gap 4 L, Estimated GFR > 60, BUN/Creatinine Ratio 45.0 H, APTT 39 H, CBC w Diff NO MAN DIFF REQ, RBC 2.93 L, MCV 91.9, MCH 29.8, RDW 19.7 H, MPV 9.1, Gran % 79.3 H, Lymphocytes % 12.1 L, Monocytes % 7.1, Eosinophils % 1.1, Basophils % 0.4, Absolute Granulocytes 8.3 H, Absolute Lymphocytes 1.3, Absolute Monocytes 0.7 H, Absolute Eosinophils 0.1, Absolute Basophils 0, PUBS MCHC 32.4 L 03/22/17 1850: APTT 79 H Vital Signs Date Time Temp Pulse Resp B/P B/P Pulse O2 O2 Flow FiO2 Mean Ox Delivery Rate 03/23 1448 97.7 100 20 102/70 98 Nasal Cannula 03/23 1008 96.7 94 16 100/70 03/23 0925 94 Nasal 3.0L Cannula 03/23 0914 94 Nasal 3.0L Cannula 03/23 0800 94 Nasal 3.5L Cannula 03/23 0728 96.7 94 16 100/70 98 Nasal 3.0L Cannula 03/23 0017 97.7 101 20 98/54 98 Nasal 3.0L Cannula 03/23 0000 Nasal 3.5L Cannula 03/22 2120 101 102/70 03/22 2100 99 Nasal 3.0L Cannula 03/22 1628 108 108/72 Intake & Output 03/23 1600 03/23 0800 03/23 0000 Intake Total 1140.2 703.2 922.0 Output Total 1000 650 450 Balance 140.2 53.2 472.0 Intake, IV 317 177.2 Intake, Lipid 116.8 116.8 108.0 Intake, Oral 240 120 120 Intake, 466.4 466.4 516.8 TPN/PPN Number 2 1 Bowel Movements Output, Urine 1000 650 450 Patient 231 lb Weight
[2017-03-23 17:16] LABS: PTT > 120 SEC (25-37)
[2017-03-23 23:00] VITALS: BP 98/62
[2017-03-24 02:47] LABS: PTT 79 SEC (25-37)
[2017-03-24 07:01] VITALS: BP 106/68
--- NOTE | 2017-03-24 08:18 | PN- Housestaff ---
Subjective Follow-up For: RUE DVT Septic Shock GI bleed UTI Pseudomyoma peritoneal Seizures Complaints: SOB, RUE SWELLING Tele-Events Since Last Visit: NSR: [id number] Subjective: I have personally examined the patient at bedside, he was laying down in bed in no acute distress. He was on nasal oxygen 3.5 L Review of Systems Constitutional: Reports: malaise, weakness. EENTM: Denies: no symptoms. Cardiovascular: Reports: peripheral edema. Respiratory: Reports: short of breath. Gastrointestinal: Reports: bloating. Genitourinary: Denies: see HPI. Objective Last 24 Hrs of Vital Signs/I&O Vital Signs Date Time Temp Pulse Resp B/P B/P Pulse O2 O2 Flow FiO2 Mean Ox Delivery Rate 03/24 1050 99 112/84 03/24 0800 Nasal 3.5L Cannula 03/24 0701 97.7 98 18 106/68 97 03/23 2300 97.4 95 16 98/62 98 Nasal 3.0L Cannula 03/23 2234 100 102/70 03/23 2234 100 102/70 03/23 1600 Nasal 3.5L Cannula 03/23 1448 97.7 100 20 102/70 98 Nasal Cannula Intake & Output 03/24 1600 03/24 0800 03/24 0000 Intake Total 1384.8 756.95 Output Total 2800 Balance -1415.2 756.95 Intake, IV 274.4 183.95 Intake, Lipid 116.8 102.2 Intake, Oral 360 Intake, 633.6 470.8 TPN/PPN Output, Urine 2800 Physical Exam General Appearance: Alert, Oriented X3, Cooperative, No Acute Distress Skin: No Rashes, No Breakdown, No Significant Lesion Skin Temp/Moisture Exam: Warm/Dry HEENT: Atraumatic, PERRLA, EOMI, Mucous Membr. 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 Problem List/Assessment and Plan # RUL thrombosis Nonocclusive thrombus in the right subclavian vein extending to axillary vein and proximal basilic vein Continue on heparin drip START ---- Vascular surgery recommended starting heparin and followed up on the H&H and stool guaiac Doppler ultrasound on both LL ruled out DVT PICC line was placed on the LUE today #pleural effusion -CXR showed bilateral pleural effusions. Clinically, he is fluid overloaded, - Lasix 20 mg push -Continue to monitor in telemetery -strict Is and Os, daily weights -Hx of PE in 2013 but this was provoked #septicemia: 1/2 bottles growing e. coli with urine growing e. 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 Unasyn discontinued-completed course Afebrile and leukocytosis slowly improving. No intervention now as the price is draining. We will consider changing it to a larger [place] if necessary. #Hypotension: -improved blood pressure either due to heart failure due to tachycardia 2/2 severe anemia, vs compression on the IVC by huge intra-abdominal tumor. continue po midodrine low dose metoprolol 6.25 po if needed might consider a dose of lasix as needed after an infusion of albumin to increase diuresis if BP tolerates #Anemia -H/H 8.7/26.9, same as previous few days. -s/p EGD, which did not reveal any bleeding ulcers. Contiues to have dark stools but H/H stable. #hypoalbuminemia: -Most likely due to loss of mucinous material and urine (due to his mucinous tumor of the abdomen invading his bladder) - Albumin 1.6. Pre-albumin 4 -pt was started on TPN (day 9) -Titerating up his TPN ( with outbound sales advisor consult ) to improve his albumin will increase his TPN from 79---->83 will increase his lipids from 14.5--->16.5 # history of epilepsy: -Continue anti-epileptic meds. DVT ppx: mechanical Diet: TPN DNR/DNI POAllan is his brother( discussed that with his correctional case manager) Elvin Harrismartha [phone] Problem List: 1. DVT of upper extremity (deep vein thrombosis) 2. Anemia 3. Hypoalbuminemia 4. GI bleed 5. Shock 6. Complicated urinary tract infection 7. History of seizures 8. Pseudomyxoma peritonei 9. Sepsis 10. Dyspnea Pain Ratin Pain Location: N/A Pain Goal: Remain pain free Pain Plan: TYLENOL OXYCODONE Tomorrow's Labs & Rationales: CBC BEP DVT/Prophylaxis: pharmacological
--- NOTE | 2017-03-24 11:08 | RADIOLOGY REPORT ---
EXAMINATION:\H\ \N\XR CHEST CLINICAL INFORMATION: PICC placement COMPARISON: March 21, 2017 and March 20, 2017 TECHNIQUE: AP portable view of the chest was obtained. FINDINGS: There is no significant change from prior study with evidence for pulmonary edema with redistribution of vasculature to the upper lobes and prominence of the azygos vein. There is a large right pleural effusion and a moderate size left pleural effusion with basilar disease. Small lung volumes. No pneumothorax. Right upper extremity PICC line is seen with tip in the distal superior vena cava. Left-sided PICC line is seen with tip at the caval atrial junction. IMPRESSION: Pulmonary edema with bilateral pleural effusions. Right-sided PICC line with tip in distal superior vena cava. Left-sided PICC line with tip at the caval atrial junction.
[2017-03-24] MEDS ORDERED: METOPROLOL SUCC25 M1 PO ×2 (13:57→14:24)
[2017-03-24] MEDS ORDERED: DIGOXIN250 MCG PO (13:57)
--- NOTE | 2017-03-24 14:04 | Patient Discharge Instructions ---
Discharge Instructions General Discharge Information You were seen/treated for: SHOCK ACUTE BLOOD LOSS ANEMIA INTRAABDOMINAL MASS TACHYCARDIA Special Instructions: 1. PLEASE FOLLOW UP WITH YOUR ONCOLOGIST WITHIN 1 WEEK OF DISCHARGE. 2. PLEASE F/U WITH YOUR PCP WITHIN 1 WEEK OF DISCHARGE. 3. PLEASE F/U WITH YOUR INSURANCE CHECKER WITHIN 1 WEEK OF DISCHARGE. 4. PLEASE CHECK inr IN 2 DAYS AND DOSE COUMADIN TO REACH INR OF 2-2.5 Diet Recommended Diet: LOW FIBRE DIET, TPN Activity Full Activity/No Limits: No ( TOLERATED) Acute Coronary Syndrome Inclusion Criteria At DC or during hospital stay patient has or had the following: ACS DIAGNOSIS No Discharge Core Measures Meds if any: Prescribed or Continued at Discharge Meds if any: NOT Prescribed or Continued at Discharge Congestive Heart Failure Inclusion Criteria At DC or during hospital stay patient has or had the following: CHF DIAGNOSIS No Discharge Core Measures Meds if any: Prescribed or Continued at Discharge Meds if any: NOT Prescribed or Continued at Discharge Cerebrovascular accident Inclusion Criteria At DC or during hospital stay patient has or had the following: CVA/TIA Diagnosis No Discharge Core Measures Meds if any: Prescribed or Continued at Discharge Meds if any: NOT Prescribed or Continued at Discharge Venous thromboembolism Inclusion Criteria VTE Diagnosis Yes VTE Type Deep Venous Thrombosis VTE Confirmed by (Test) UNILATERAL VENOUS DOPPLER Discharge Core Measures - Per Current guidelines, there needs to be overlap - treatment for the first 5 days of Warfarin therapy. - If discharged on Warfarin prior to 5 days of - overlap therapy, the patient will need to be - assessed for post discharge needs including - *Post discharge parental anticoagulation - *Warfarin and/or parental anticoagulation education - *Follow up date to check INR post discharge At least 5 days overlap therapy as Inpatient No Meds if any: Prescribed or Continued at Discharge Warfarin No Note: Overlap Therapy is Warfarin and Anticoagulant Meds if any: NOT Prescribed or Continued at Discharge No Warfarin d/t Prescribed other Anticoag No Overlap Therapy d/t Prescribed other Anticoag
--- NOTE | 2017-03-24 14:17 | PN- Cardiology ---
Subjective Subjective: * Patient is doing better. He still has a bit of lightheadedness. No chest discomfort. * Improved rate control and breathing on digoxin. Objective Vital Signs and I&Os Vital Signs Date Time Temp Pulse Resp B/P B/P Pulse O2 O2 Flow FiO2 Mean Ox Delivery Rate 03/24 1050 99 112/84 03/24 0800 Nasal 3.5L Cannula 03/24 0701 97.7 98 18 106/68 97 03/23 2300 97.4 95 16 98/62 98 Nasal 3.0L Cannula 03/23 2234 100 102/70 03/23 2234 100 102/70 03/23 1600 Nasal 3.5L Cannula 03/23 1448 97.7 100 20 102/70 98 Nasal Cannula Intake & Output 03/24 0800 03/24 0000 03/23 1600 03/23 0800 03/23 0000 Intake Total 1384.8 756.95 1140.2 703.2 922.0 Output Total 2800 1000 650 450 Balance -1415.2 756.95 140.2 53.2 472.0 Intake, IV 274.4 183.95 317 177.2 Intake, Lipid 116.8 102.2 116.8 116.8 108.0 Intake, Oral 360 240 120 120 Intake, 633.6 470.8 466.4 466.4 516.8 TPN/PPN Number 2 1 Bowel Movements Output, Urine 2800 1000 650 450 Patient 231 lb Weight Physical Exam: General: WD/overweight male in NAD; alert and oriented x 3 Heart: RRR Lungs: clear Extremities: 3+ lower extremity edema and 2+ right arm edema Assessment/Plan Assessment/Plan * Patient is doing better on digoxin which should be continues. Increase his Metoprolol to 12.5mg BID. Agree with stopping his Cardizem. Stable for discharge from a cardiac standpoint with follow up recommended in the office. Continue telemetry? No
[2017-03-24 14:26] LABS: PTT 51 SEC (25-37)
[2017-03-24 14:44] VITALS: BP 92/62
--- NOTE | 2017-03-24 15:01 | Discharge Summary ---
Visit Information Visit Dates Admission Date: 03/11/17 Discharge Date: 03/29/17 Hospital Course Course Attending Physician: KAROLINA CHONG MD Primary Care Physician: COLLEEN SOSA,[facility] Course: Mr. 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 He was brought in by ambulance to the emergency department after feeling fatigued and dyspneic and having a dark tarry stool. He states that he has never had any previous gastrointestinal bleeding. He is Lovenox for anticoagulation after a pulmonary embolism diagnosed in June 2014. In the emergency department vitals on admission, temperature 100.5, heart rate 138, respiratory rate 20, blood pressure 97/60, saturating 98% on 3 L of oxygen via nasal cannula. Labs were significant for an elevated white count 21.6, with 3 bands and 95 seg, H&H 6.7/21.7, platelets 335. BUNs/creatinine 47/0.6. Alkaline phosphatase 191. Troponin 0.04. Urinalysis was remarkable for leukocyte esterase, 10-15 red blood cells and greater than 75 white cells with packed bacteria. ABG showed 7.52/34/98/27 on 3 L of oxygen via nasal cannula. EKG revealed sinus tachycardia rate 1 40 bpm, KS 116, QTC 385, normal axis, T- wave flattening in the limb leads and lateral precordial leads, unchanged from previous EKG. In the ED, he initially the patient refused any intervention including IV access and imaging. The patient's brother was informed and he said that the patient changes his mind on a regular basis. The patient eventually did agree to blood work, a right internal jugular central triple-lumen catheter, IV medications and was started on norepinephrine for pressor support. Septic shock gram-negative most likely etiology is tumor necrosis with infection : Patient was admitted to the ICU for pressor support. Initial thought was the shock was most likely secondary to acute blood loss anemia versus a sepsis etiology as his admission labs did show leukocytosis of 21,600. Aside from temperature on admission of 100.5, he was afebrile for his ICU course. He was initially empirically treated with vancomycin and ceftazidime, however was transitioned to Unasyn. 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 1 out of 2 blood culture bottles did grow Escherichia coli, and his urine grew multiple organisms including Escherichia coli and VRE. He was evaluated by urology for his colovesicular fistula, and if stable he would need surgery for possibly a diverting colostomy proximal to the fistula, if he were to undergo debulking surgery for his pelvic mass. However the surgery was deemed highly complicated and patient's nutritional status was poor. The antibiotics were completed and pressors were stopped. His blood pressure continued to be borderline and therefore he received occasional boluses of fluid. His TPN was interrupted for a brief while in the ICU and restarted again at a lower rate. He was refused surgery at [facility] in the past due to poor nutritional status. CODE STATUS was addressed multiple times with the patient's brother on the floor however he still wanted all available treatment and was not ready for comfort care/hospice at this point. Patient however did not wish any aggressive interventions. Acute blood loss anemia: In emergency department, the patient did have a dark tarry bowel movement which was guaiac positive. He was started on a Protonix drip after a bolus and kept nothing by mouth initially. He initially refused intervention and evaluation by gastroenterology however agreed later on and eventually underwent an upper endoscopy, which revealed no active GI bleeding. Patient was on Lovenox for previous PE and that probably contributing to his acute blood loss anemia. It was stopped while the patient was in the hospital and he was put on IV heparin. A hiatal hernia was noted without any Willam erosions. He received 3 units of blood transfusion in the ICU. H&H remained stable. Right upper limb thrombosis: At the site of the placement of the PICC line .Patient was found to have increased swelling in the right upper extremity and on imaging a nonocclusive thrombus was found in the right subclavian vein. Vascular surgery was consulted and patient was started on a heparin drip. Dopplers were done to rule out DVT in lower extremities. Patient's PICC line was changed while in the hospital and he was transitioned back to Lovenox. He is being bridged with coumadin and lovenox. He will need INR checked on 03/31/17 to dose dose coumadin accordingly and target INR is low 2's(2-2.5). Plan is to discontinue lovenox once INR therapeutic. Intra-abdominal mass: Abdominopelvic CT scan showed central pelvic mass associated with fistulization with the bowel. The mass Abuts into the bowel and bladder which was decompressed by it. Definitive treatment would be an ex-lap with diverting colostomy, and possibly a cystectomy with reconstruction/ diversion. He was previously evaluated by surgery at [facility], who felt that this was a procedure that would require specialty care at [facility], and the patient was actually transferred from [facility] on his last admission for further workup, however per the patient's brother, no surgery was done at [facility] as patient was not deemed stable enough for surgery. His nutritional status was very poor with an albumin level of 1.7 and he is expected to build up enough nutrition prior to undergoing such an extensive surgery. Patient was continued on TPN in the hospital and is advised to follow up with surgery as an outpatient for possible surgery for the mucinous abdominal tumor in the future. 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 He remained in sinus tach for most of the ICU stay and was started on 12.5mg BID of metoprolol to be titrated upwards or downwards depending on his vitals. Patient's blood pressure was also very labile and he was put on a low-dose of metoprolol and Cardizem was held. Digoxin was started for better rate control. Heart rate stayed in control and blood pressure within normal limits. At discharge patient was instructed to continue taking metoprolol at 12.5 twice a day and digoxin 0.25 mg daily and keep holding the Cardizem. He is instructed to follow up with cardiology as an outpatient. Hypoalbuminemia on TPN: The patient was on parenteral feeding with TPN prior to admission. Upon admission, his right PIC line was found to be occluded and could not be used. After having the endoscopy, he was deemed able to restart a diet and he has been placed on a by mouth low fiber diet. His TPN was restarted at higher nutritional levels to help replenish his low nutritional status. Since nutritional levels needs to be improved significantly for him to undergo surgery for the abdominal mass. History of epilepsy: Continued on antiepileptic meds Dilantin and Keppra. DVT ppx: mechanical and IV heparin Diet: TPN and low fiber diet DNR/DNI POA is his brother Elvin Carrion [phone] Allergies: Coded Allergies: NO KNOWN ALLERGIES (01/11/14) Disposition Summary Disposition Principal Diagnosis: Septic shock gram-negative most likely etiology is tumor necrosis with infection Additional Diagnosis: Acute blood loss anemia Right upper limb thrombosis Intra-abdominal mass Tachycardia and hypotension Hypoalbuminemia on TPN Discharge Disposition: SNF Discharge Instructions General Discharge Information Code Status: Do Not Resucitate/Intubat Patient's Diet: On low fiber diet and TPN Patient's Activity: as tolerated Follow-Up Instructions/Appts: 1. PLEASE FOLLOW UP WITH YOUR ONCOLOGIST WITHIN 1 WEEK OF DISCHARGE. 2. PLEASE F/U WITH YOUR PCP WITHIN 1 WEEK OF DISCHARGE. 3. PLEASE F/U WITH YOUR DIRECTOR OF MARKET INTELLIGENCE WITHIN 1 WEEK OF DISCHARGE. Medications at Discharge Discharge Medications: Stop taking the following medications: Enoxaparin Sodium (Lovenox) 100 MG/ML SYRINGE Inject into fatty tissue Q12H Metoprolol Tartrate (Lopressor) 50 MG TABLET ORAL TWICE DAILY Diltiazem HCl (Diltiazem 24HR ER) 180 MG CAP.ER.24H ORAL DAILY Qty = 30 Continue taking these medications: Phenytoin Sodium Extended (Phenytoin Sodium Extended) 100 MG CAPSULE 2 Capsule ORAL TWICE DAILY Qty = 360 Comments: Last Taken: 03/29/17 Time: 9AM Multivitamin (Daily Multiple Vitamin) 1 EACH TABLET 1 Tablet ORAL DAILY Comments: NOT GIVEN IN HOSPITAL Trazodone HCl (Trazodone HCl) 50 MG TABLET 1 Tablet ORAL TAKE AT BEDTIME Comments: Last Taken: 03/28/17 Time: 9PM Oxybutynin Chloride (Oxybutynin Chloride) 5 MG TABLET 1 Tablet ORAL DAILY Comments: NOT GIVEN IN HOSPITAL Folic Acid (Folic Acid) 1 MG TABLET 1 Tablet ORAL DAILY Comments: Last Taken: NOT GIVEN IN HOSPITAL Time: [TPN] As Directed Comments: Last Taken: CONTINUOUS Time: CONTINUOUS TPN @ 83.3 ML/HR, LIPIDS @ 16.7 ML/HR Acetaminophen (8 Hour) 650 MG TABLET.ER 1 Tablet ORAL Q4H as needed for PAIN/TEMP/> 101 Comments: NOT GIVEN IN HOSPITAL Acetaminophen (Acephen) 650 MG SUPP.RECT 1 SUPPOSITORY RECTALLY Q4H as needed for PAIN/TEMP>101 Comments: NOT GIVEN IN HOSPITAL Magnesium Hydroxide (Milk Of Magnesia) 400 MG/5 ML ORAL.SUSP 30 Milliliters ORAL DAILY as needed for CONSTIPATION Comments: Last Taken: NOT GIVEN IN HOSPITAL Time: Bisacodyl (Bisacodyl) 10 MG SUPP.RECT 1 Suppository RECTAL DAILY as needed for CONSTIPATION Comments: Last Taken: NOT GIVEN IN HOSPITAL Time: Na Phos,M-B/Na Phos,Di-Ba (Fleet Enema) 19 GRAM-7 GRAM/118 ML ENEMA 1 Enema RECTAL DAILY as needed for CONSTIPATION Comments: NOT GIVEN IN HOSPITAL Albuterol Sulfate (Albuterol Sulfate) 2.5 MG/3 ML (0.083 %) VIAL.NEB 1 Vial Inhale Solution Q6H as needed for SOB Comments: Last Taken: 03/19/17 Time: 9 AM Loperamide HCl (Imodium A-D) 2 MG TABLET 1 Tablet ORAL Q6H as needed for LOOSE STOOL Comments: Last Taken: NOT GIVEN IN HOSPITAL Time: Ondansetron HCl (Ondansetron HCl) 4 MG TABLET 1 Tablet ORAL EVERY SIX HOURS NEEDED as needed for N/V Comments: Last Taken: NOT GIVEN IN HOSPITAL Time: Magnesium Oxide (Magnesium Oxide) 400 MG TABLET 400 Milligram ORAL TWICE DAILY Qty = 10 Comments: Last Taken: 03/29/17 Time: 9AM Levetiracetam (Keppra) 1,000 MG TABLET 1 Tablet ORAL Q12H Qty = 60 Comments: Last Taken: 03/29/17 Time: 9AM Omeprazole (Omeprazole) 40 MG CAPSULE.DR 1 Capsule ORAL DAILY Qty = 30 Comments: Last Taken: 03/29/17 Time: 6AM Alprazolam (Xanax) 0.25 MG TABLET 1 Tablet ORAL TWICE DAILY as needed for anxiety Qty = 60 Comments: NOT GIVEN IN HOSPITAL Sertraline HCl (Zoloft) 100 MG TABLET 1 Tablet ORAL Every night Comments: Last Taken: 03/28/17 Time: 9PM Ferrous Sulfate (Ferrous Sulfate) 325 MG (65 MG IRON) TABLET 1 Tablet ORAL TWICE DAILY Comments: NOT GIVEN IN HOSPITAL Start taking the following new medications: Metoprolol Succinate (Metoprolol Succinate) 25 MG TAB 0.5 Tablet ORAL TWICE DAILY Days = 30 No Refills Instructions: CAN INCEASE TO 12.5 MG BID IF BP TOLERATES Comments: Last Taken: 03/29/17 Time: 9AM Warfarin Sodium (Coumadin) 1 MG TABLET 1 Tablet ORAL DAILY Qty = 30 No Refills Instructions: please take one tab po daily TO REACH inr GOAL OF 2-2.5 Comments: Last Taken: 03/28/17 Time: 9PM Digoxin (Digoxin) 250 MCG TABLET 1 Tablet ORAL DAILY Days = 30 No Refills Comments: Last Taken: 03/27/17 Time: 5PM Midodrine HCl (Midodrine HCl) 5 MG TABLET 1 Tablet ORAL THREE TIMES DAILY Qty = 90 No Refills Comments: Last Taken: 03/29/17 Time: 9AM Enoxaparin Sodium (Lovenox) 100 MG/ML SYRINGE 100 Unit Inject into fatty tissue DAILY Qty = 5 No Refills Instructions: PLEASE GIVE ONE SYRINGE (100 U) DAILY SC PLEASE BRIDGE WITH COUMADIN TO REACH INR OF 2-2.5 Comments: Last Taken: 03/28/17 Time: 5PM Copies To: GIOVANNA SOSA,CHANELLE Winn; MADDY SOSA,PADILLAKatrin VARELA MD PhD,ANN Minaya; MIESHA SOSA, REYES
[2017-03-24 23:45] VITALS: BP 86/60
[2017-03-25 00:51] LABS: ABSOLUTE BASOPHIL COUNT 0.1 /CUMM (0.0-0.2); ABSOLUTE EOSINOPHIL COUNT 0 /CUMM (0.0-0.7); ABSOLUTE GRANULOCYTE CT 7.9 /CUMM (1.4-6.5); ABSOLUTE LYMPH COUNT 1.6 /CUMM (1.2-3.4); ABSOLUTE MONOCYTE COUNT 0.7 /CUMM (0.10-0.60); BASOPHIL % 0.7 % (0.0-2.0); EOSINOPHIL % 0.4 % (0-5); GRANULOCYTE % 76.6 % (42.2-75.2); HEMATOCRIT 25.5 % (42-52); MEAN CORPUSCULAR HGB 28.8 PG (27.0-31.0); MEAN CORPUSCULAR HGB CONC 31.5 G/DL (33.0-37.0); MEAN CORPUSCULAR VOLUME 91.6 FL (80.0-94.0); MEAN PLATELET VOLUME 9.4 FL (7.4-10.4); PLATELET COUNT 311 /CUMM (130-400); RBC DISTRIBUTION WIDTH 19.1 % (11.5-14.5); RED BLOOD CELL CT 2.78 /CUMM (4.70-6.10); WHITE BLOOD CELL COUNT 10.3 /CUMM (4.8-10.8)
[2017-03-25 02:09] VITALS: BP 90/60
[2017-03-25 06:48] VITALS: BP 86/60
--- NOTE | 2017-03-25 07:13 | PN- Housestaff ---
RICK SOSA,GRETCHEN 03/25/17 0713: Subjective Follow-up For: RUE DVT Septic Shock GI bleed UTI Pseudomyoma peritoneal Seizures Complaints: SOB RUE swelling Tele-Events Since Last Visit: SR-ST 98-105 Subjective: Percent examined the patient at bedside, he was laying down in bed in no acute distress, on nasal oxygen 3.5 L Review of Systems Constitutional: Reports: malaise, weakness. Cardiovascular: Denies: see HPI. Respiratory: Reports: short of breath. Gastrointestinal: Reports: bloating. Genitourinary: Reports: hematuria. Skin: Denies: no symptoms. Objective Last 24 Hrs of Vital Signs/I&O Vital Signs Date Time Temp Pulse Resp B/P B/P Pulse O2 O2 Flow FiO2 Mean Ox Delivery Rate 03/25 0856 97 03/25 0839 97 03/25 0648 97.6 101 20 /60 100 Nasal 2.0L Cannula 03/25 0209 97 90/60 03/25 0000 95 Nasal 3.5L Cannula 03/24 2345 98 86/60 03/24 2200 98 86/60 03/24 1842 106 104/80 03/24 1444 97.6 100 20 92/62 98 Nasal 3.5L Cannula Intake & Output 03/25 1600 03/25 0800 03/25 0000 Intake Total 1000.0 1410.0 Output Total 900 1850 Balance 100.0 -440.0 Intake, IV 154.8 Intake, Lipid 133.6 125.2 Intake, Oral 200 480 Intake, 666.4 650.0 TPN/PPN Output, Urine 900 1850 Patient 228 lb Weight Weight Tika Lift Measurement Method Physical Exam General Appearance: Alert, Oriented X3, Cooperative, No Acute Distress Skin: No Rashes, No Breakdown, No Significant Lesion Skin Temp/Moisture Exam: Warm/Dry Sepsis Skin Exam (color): Normal for Ethnicity HEENT: Atraumatic, PERRLA, EOMI, Mucous Membr. 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 Problem List/Assessment and Plan # RUL thrombosis Nonocclusive thrombus in the right subclavian vein extending to axillary vein and proximal basilic vein Doppler ultrasound on both LL ruled out DVT PICC line was placed on the LUE on 03/26 START Lovenox and coumadin 1 mg today( the patient has high tendency for GIT bleeding) H&H stable Follow up CBC and stool guiac #pleural effusion -CXR showed bilateral pleural effusions. Clinically, he is fluid overloaded, - Lasix 20 mg push -Continue to monitor in telemetery -strict Is and Os, daily weights -Hx of PE in 2013 but this was provoked #septicemia: 1/2 bottles growing e. coli with urine growing e. 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 Unasyn discontinued-completed course Afebrile and leukocytosis slowly improving. No intervention now as the price is draining. We will consider changing it to a larger monegasque if necessary. #Hypotension: -improved blood pressure either due to heart failure due to tachycardia 2/2 severe anemia, vs compression on the IVC by huge intra-abdominal tumor. continue po midodrine low dose metoprolol 6.25 po if needed might consider a dose of lasix as needed after an infusion of albumin to increase diuresis if BP tolerates #Anemia -H/H 8.7/26.9, same as previous few days. -s/p EGD, which did not reveal any bleeding ulcers. Contiues to have dark stools but H/H stable. #hypoalbuminemia: -Most likely due to loss of mucinous material and urine (due to his mucinous tumor of the abdomen invading his bladder) - Albumin 1.6. Pre-albumin 4 -pt was started on TPN (day 5) -Titerating up his TPN ( with work car operator consult ) to improve his albumin will increase his TPN from 79---->83 will increase his lipids from 14.5--->16.5 as per work car operator recommendation # history of epilepsy: -Continue anti-epileptic meds. DVT ppx: mechanical Diet: TPN DNR/DNI POA is his brother( discussed that with his behavioral health case manager) Elvin Carrion [phone] Problem List: 1. DVT of upper extremity (deep vein thrombosis) 2. Anemia 3. Hypoalbuminemia 4. GI bleed 5. Shock 6. Complicated urinary tract infection 7. History of seizures 8. Pseudomyxoma peritonei 9. Sepsis 10. Dyspnea Pain Ratin Pain Location: N/A Pain Goal: Remain pain free Pain Plan: TYLENOL OXYCODONE Tomorrow's Labs & Rationales: CBC BEP INR LFT Ca Mg GLUCOSE DVT/Prophylaxis: pharmacological KAROLINA CHONG MD 03/25/17 1732: Attending MD Review Statement Attending Statement Attending MD Statement: examined this patient, discuss w/resident/PA/TAX ATTORNEY, agreed w/resident/PA/TAX ATTORNEY, discussed with family, reviewed EMR data (avail), discussed with nursing, discussed with case mgmt, amended to note Attending Assessment/Plan: The patient was seen and discussed with house staff and the patient's brother. He appears to be tolerating TPN. Concern regarding low BP (but asymptomatic). HR stable. Will give only low dose of Coumadin this evening (1 ma) as he is very sensitive and wish to avoid bleeding. He has frequent phlebotomies due to TPN and will transfuse 1 unit at present and follow H/H.
[2017-03-25 08:10] LABS: ABSOLUTE BASOPHIL COUNT 0.1 /CUMM (0.0-0.2); ABSOLUTE EOSINOPHIL COUNT 0.1 /CUMM (0.0-0.7); ABSOLUTE GRANULOCYTE CT 6.7 /CUMM (1.4-6.5); ABSOLUTE LYMPH COUNT 1.2 /CUMM (1.2-3.4); ABSOLUTE MONOCYTE COUNT 0.6 /CUMM (0.10-0.60); BASOPHIL % 0.7 % (0.0-2.0); EOSINOPHIL % 0.6 % (0-5); HEMATOCRIT 24.6 % (42-52); MEAN CORPUSCULAR HGB 29.5 PG (27.0-31.0); MEAN CORPUSCULAR HGB CONC 31.9 G/DL (33.0-37.0); MEAN CORPUSCULAR VOLUME 92.5 FL (80.0-94.0); MEAN PLATELET VOLUME 8.9 FL (7.4-10.4); PLATELET COUNT 288 /CUMM (130-400); RBC DISTRIBUTION WIDTH 19.9 % (11.5-14.5); RED BLOOD CELL CT 2.66 /CUMM (4.70-6.10); WHITE BLOOD CELL COUNT 8.6 /CUMM (4.8-10.8)
[2017-03-25 08:24] LABS: PT 13.5 SEC (9.4-12.5)
[2017-03-25 08:39] VITALS: BP 96/68
--- NOTE | 2017-03-25 08:59 | PN- Psychiatry ---
Assessment/Plan Impression: 61-year-old single male known to this service presents to [facility] on 03/10/17 with SOB, fatigue, and dark colored stools. Interviewed today on telemetry. Nursing reports no major changes in functioning since last seen by psychiatry. 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 We will continue to evaluate capacity on an ongoing basis as it relates to specific treatment choices. 2. Please defer to next of kin or legal healthcare outside energy sales representatives at this time for health care decision making. 3. Continue psychotropics as currently ordered, use lorazepam with caution. Thank you for including psychiatry in this case. Subjective Subjective: Client is seen lying in bed in hospital attire. CC "I am not going to move". (He initially confuses this consumer loan underwriter for physical therapy.) He reports his mood is "ok " and he is cooperative with interview. Denies depression. Endorses some anxiety which is secondary to wanting to be discharged from the hospital. He denies any side effects from zoloft and feels his current dose is adequately managing his symptoms. He states he is sleeping well and has adequate energy level. He has poor appetite. His speech is monotone and eye contact is WNL. Affect is restricted. Oriented to person, place, month, and year (03/26/17). Denies suicidal or homicidal ideation. Denies psychosis. Thought process is linear, logical. He continues to seem to have basic understanding of why he is hospitalized, however is still unaware of the goals of care and does not apprear to appreciate the current situation and it's consequences. Objective Last 24 Hrs of Vital Signs/I&O Current Medications Sig/Ghulam Start time Last Medication Dose Route Stop Time Status Admin Acetaminophen 650 MG Q6P PRN 03/12 1630 AC 03/20 PO 0319 Albuterol Sulfate 3 ML Q6H PRN 03/11 0930 AC 03/19 INH 1155 Digoxin 0.25 MG 03/19 1945 AC 03/24 PO 1842 Enoxaparin Sodium 100 MG 1800 03/25 1800 AC SC Enoxaparin Sodium 100 MG DAILY 03/24 1600 DC 03/24 SC 184 Fat Emulsion 400 ML 19003/24 1900 AC 03/24 Intravenous IV 03/25 1859 2000 Fat Emulsion 350 ML 1900 07/25 1900 DC 03/23 Intravenous IV 03/24 1859 1921 Heparin Sodium 4,200 UNIT ONCE ONE 03/24 1500 DC 03/24 (Porcine) IV 03/24 1501 1440 Heparin Sodium/ 25,000 UNIT Q24H 03/21 1345 DC 03/24 Dextrose IV 1050 Dextrose/Water 500 ML Levetiracetam 1,000 MG BID 03/18 230 AC 03/24 PO 2216 Melatonin 5 MG AT BEDTIME 03/16 220 AC 03/24 PO 2216 Metoprolol Tartrate 6.25 MG BID 03/15 220 AC 03/24 PO 1050 Midodrine 7.5 MG TID 03/25 0745 AC PO Omeprazole 40 MG DAILY AC 03/13 07 AC 03/25 PO 0615 Ondansetron HCl 4 MG Q6P PRN 03/11 0930 AC IV Phenytoin 200 MG BID 03/18 230 AC 03/24 PO 2216 Potassium Chloride 20 MEQ BID 03/20 1000 AC 03/24 PO 2217 Sertraline HCl 150 MG QPM 03/12 220 AC 03/24 PO 2216 Sodium Chloride 500 ML BOLUS ONE 03/25 0745 DC IV 03/25 0844 Sodium Chloride 500 ML BOLUS ONE 03/24 2230 DC 03/24 IV 03/24 2329 2240 Total Parenteral 1 UNIT 03/24 190 AC 03/24 Nutrition IV 03/25 1851999 Total Parenteral 1 UNIT 0 03/23 190 DC 03/23 Nutrition IV 03/24 185 192 Trazodone HCl 50 MG AT BEDTIME 03/11 220 AC 03/24 PO 2217 Warfarin Sodium 1 MG COUMADIN 1700 ONE 03/25 1700 AC PO 03/25 1701 Warfarin Sodium 5 MG COUMADIN 1700 ONE 03/24 1700 DC 03/24 PO 03/24 1701 1842 Laboratory Tests 03/2525 2200 Chemistry Sodium (137 - 145 mmol/L) 132 L Potassium (3.5 - 5.1 mmol/L) 4.6 Chloride (98 - 107 mmol/L) 94 L Carbon Dioxide (22 - 30 mmol/L) 36 H Anion Gap (5 - 16) 2 L BUN (9 - 20 mg/dL) 19 Creatinine (0.7 - 1.2 mg/dL) 0.5 L Estimated GFR (>60 ml/min) > 60 BUN/Creatinine Ratio (7 - 25 %) 38.0 H Coagulation PT (9.4 - 12.5 SEC) 13.5 H INR (0.90 - 1.17) 1.29 H Hematology CBC w Diff NO MAN DIFF REQ NO MAN DIFF REQ WBC (4.8 - 10.8 /CUMM) 8.6 10.3 RBC (4.70 - 6.10 /CUMM) 2.66 L 2.78 L Hgb (14.0 - 18.0 G/DL) 7.9 L 8.0 L Hct (42 - 52 %) 24.6 L 25.5 L MCV (80.0 - 94.0 FL) 92.5 91.6 MCH (27.0 - 31.0 PG) 29.5 28.8 RDW (11.5 - 14.5 %) 19.9 H 19.1 H Plt Count (130 - 400 /CUMM) 288 311 MPV (7.4 - 10.4 FL) 8.9 9.4 Gran % (42.2 - 75.2 %) 77.0 H 76.6 H Lymphocytes % (20.5 - 51.1 %) 14.2 L 15.2 L Monocytes % (1.7 - 9.3 %) 7.5 7.1 Eosinophils % (0 - 5 %) 0.6 0.4 Basophils % (0.0 - 2.0 %) 0.7 0.7 Absolute Granulocytes (1.4 - 6.5 /CUMM) 6.7 H 7.9 H Absolute Lymphocytes (1.2 - 3.4 /CUMM) 1.2 1.6 Absolute Monocytes (0.10 - 0.60 /CUMM) 0.6 0.7 H Absolute Eosinophils (0.0 - 0.7 /CUMM) 0.1 0 Absolute Basophils (0.0 - 0.2 /CUMM) 0.1 0.1 PUBS MCHC (33.0 - 37.0 G/DL) 31.9 L 31.5 L 03/24 03/24 1900 1300 Coagulation APTT (25 - 37 SEC) Cancelled 51 H Vital Signs Date Time Temp Pulse Resp B/P B/P Pulse O2 O2 Flow FiO2 Mean Ox Delivery Rate 03/25 0839 97 96/68 03/25 0648 97.6 101 20 60 100 Nasal 2.0L Cannula 03/25 0209 97 90/60 03/25 0000 95 Nasal 3.5L Cannula 03/24 2345 98 /03/24 2200 98 03/24 1842 106 104/80 03/24 1444 97.6 100 20 92/62 98 Nasal 3.5L Cannula 03/24 1050 99 112/84 Intake & Output 03/25 1600 03/25 0800 03/25 0000 Intake Total 1000.0 1410.0 Output Total 900 1850 Balance 100.0 -440.0 Intake, IV 154.8 Intake, Lipid 133.6 125.2 Intake, Oral 200 480 Intake, 666.4 650.0 TPN/PPN Output, Urine 900 1850 Patient 228 lb Weight Weight Tika Lift Measurement Method
[2017-03-25] MEDS ORDERED: MIDODRINE HCL5 M1 PO (10:55)
[2017-03-25 14:55] VITALS: BP 96/64
[2017-03-25 19:57] LABS: ABSOLUTE BASOPHIL COUNT 0 /CUMM (0.0-0.2); ABSOLUTE EOSINOPHIL COUNT 0 /CUMM (0.0-0.7); ABSOLUTE GRANULOCYTE CT 8.2 /CUMM (1.4-6.5); ABSOLUTE LYMPH COUNT 1.4 /CUMM (1.2-3.4); ABSOLUTE MONOCYTE COUNT 0.8 /CUMM (0.10-0.60); BASOPHIL % 0.4 % (0.0-2.0); EOSINOPHIL % 0.3 % (0-5); GRANULOCYTE % 78.3 % (42.2-75.2); HEMATOCRIT 26.6 % (42-52); MEAN CORPUSCULAR HGB 29.2 PG (27.0-31.0); MEAN CORPUSCULAR HGB CONC 31.5 G/DL (33.0-37.0); MEAN CORPUSCULAR VOLUME 92.8 FL (80.0-94.0); MEAN PLATELET VOLUME 8.6 FL (7.4-10.4); PLATELET COUNT 313 /CUMM (130-400); RBC DISTRIBUTION WIDTH 20.1 % (11.5-14.5); RED BLOOD CELL CT 2.87 /CUMM (4.70-6.10); WHITE BLOOD CELL COUNT 10.4 /CUMM (4.8-10.8)
[2017-03-25 22:49] VITALS: BP 92/60
[2017-03-26 05:58] LABS: ABSOLUTE BASOPHIL COUNT 0 /CUMM (0.0-0.2); ABSOLUTE EOSINOPHIL COUNT 0 /CUMM (0.0-0.7); ABSOLUTE LYMPH COUNT 1.2 /CUMM (1.2-3.4); ABSOLUTE MONOCYTE COUNT 0.7 /CUMM (0.10-0.60); BASOPHIL % 0.5 % (0.0-2.0); EOSINOPHIL % 0.6 % (0-5); GRANULOCYTE % 77.9 % (42.2-75.2); HEMATOCRIT 24.3 % (42-52); MEAN CORPUSCULAR HGB 29.3 PG (27.0-31.0); MEAN CORPUSCULAR HGB CONC 31.8 G/DL (33.0-37.0); MEAN CORPUSCULAR VOLUME 92.2 FL (80.0-94.0); MEAN PLATELET VOLUME 8.1 FL (7.4-10.4); PLATELET COUNT 288 /CUMM (130-400); RBC DISTRIBUTION WIDTH 19.7 % (11.5-14.5); RED BLOOD CELL CT 2.64 /CUMM (4.70-6.10); WHITE BLOOD CELL COUNT 8.9 /CUMM (4.8-10.8)
[2017-03-26 07:00] VITALS: BP 108/70
--- NOTE | 2017-03-26 07:30 | PN- Housestaff ---
See Addendum Subjective Follow-up For: RUE DVT Septic Shock GI bleed UTI Pseudomyoma peritoneal Seizures Complaints: SOB RUE SWELLING ABDOMINAL DISTENSION Tele-Events Since Last Visit: NSR 73-81 Subjective: I Have personally examined the patient at bedside, he was laying down in bed in no acute distress , on nasal cannula Review of Systems Constitutional: Reports: malaise, weakness. Cardiovascular: Reports: peripheral edema. Respiratory: Reports: short of breath. Gastrointestinal: Reports: bloating, bloody stool. Genitourinary: Reports: hematuria. Objective Last 24 Hrs of Vital Signs/I&O Vital Signs Date Time Temp Pulse Resp B/P B/P Pulse O2 O2 Flow FiO2 Mean Ox Delivery Rate 03/26 1400 96.9 96 18 102/62 97 Nasal 3.5L Cannula 03/26 1052 100 98/62 03/26 0800 97 Nasal 3.5L Cannula 03/26 0700 97.2 102 20 108/70 97 03/25 2334 Nasal 3.5L Cannula 03/25 2249 97.6 107 18 92/60 95 Nasal 3.0L Cannula 03/25 1822 105 90/50 Intake & Output 03/26 1600 03/26 0800 03/26 0000 Intake Total 425 800.0 Output Total 1400 1350 1550 Balance -975 -550.0 -1550 Intake, Blood 325 Product Intake, IV 100 Intake, Lipid 117.0 Intake, Oral 0 100 Intake, 583 TPN/PPN Number 1 2 Bowel Movements Output, Urine 1400 1350 1550 Physical Exam General Appearance: Alert, Oriented X3, Cooperative, No Acute Distress Skin: No Rashes, No Breakdown, No Significant Lesion HEENT: Atraumatic, PERRLA, EOMI, Mucous Membr. 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 Problem List/Assessment and Plan # RUL thrombosis Nonocclusive thrombus in the right subclavian vein extending to axillary vein and proximal basilic vein Doppler ultrasound on both LL ruled out DVT PICC line was placed on the LUE on 03/26 START Lovenox and coumadin 1 mg today( the patient has high tendency for GIT bleeding) H&H stable Follow up CBC and stool guiac #pleural effusion -CXR showed bilateral pleural effusions. Clinically, he is fluid overloaded, - Lasix 20 mg push -Continue to monitor in telemetery -strict Is and Os, daily weights -Hx of PE in 2013 but this was provoked #septicemia: 1/2 bottles growing e. coli with urine growing e. 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 Unasyn discontinued-completed course Afebrile and leukocytosis slowly improving. No intervention now as the price is draining. We will consider changing it to a larger portuguese if necessary. #Hypotension: -improved blood pressure either due to heart failure due to tachycardia 2/2 severe anemia, vs compression on the IVC by huge intra-abdominal tumor. continue po midodrine low dose metoprolol 6.25 po if needed might consider a dose of lasix as needed after an infusion of albumin to increase diuresis if BP tolerates #Anemia -H/H 8.7/26.9, same as previous few days. -s/p EGD, which did not reveal any bleeding ulcers. Contiues to have dark stools but H/H stable. #hypoalbuminemia: -Most likely due to loss of mucinous material and urine (due to his mucinous tumor of the abdomen invading his bladder) - Albumin 1.6. Pre-albumin 4 -pt was started on TPN (day 5) -Titerating up his TPN ( with napper tender consult ) to improve his albumin will increase his TPN from 79---->83 will increase his lipids from 14.5--->16.5 as per napper tender recommendation # history of epilepsy: -Continue anti-epileptic meds. DVT ppx: mechanical Diet: TPN DNR/DNI POAllan is his brother( discussed that with his embedded case manager) Elvin Carrion [phone] Problem List: 1. DVT of upper extremity (deep vein thrombosis) 2. Anemia 3. Hypoalbuminemia 4. GI bleed 5. Complicated urinary tract infection 6. History of seizures 7. Pseudomyxoma peritonei 8. Sepsis 9. Dyspnea Pain Ratin Pain Location: n/a Pain Goal: Remain pain free Pain Plan: oxycodone Tomorrow's Labs & Rationales: cbc bep INR DVT/Prophylaxis: pharmacological
[2017-03-26 12:39] LABS: PT 13.4 SEC (9.4-12.5)
[2017-03-26 14:00] VITALS: BP 102/62
[2017-03-26] MEDS ORDERED: COUMADIN1 M1 PO (16:13)
[2017-03-27 04:19] LABS: ABSOLUTE BASOPHIL COUNT 0 /CUMM (0.0-0.2); ABSOLUTE EOSINOPHIL COUNT 0 /CUMM (0.0-0.7); ABSOLUTE GRANULOCYTE CT 7.4 /CUMM (1.4-6.5); ABSOLUTE LYMPH COUNT 1.3 /CUMM (1.2-3.4); ABSOLUTE MONOCYTE COUNT 0.6 /CUMM (0.10-0.60); BASOPHIL % 0.4 % (0.0-2.0); EOSINOPHIL % 0.5 % (0-5); GRANULOCYTE % 78.3 % (42.2-75.2); HEMATOCRIT 25.7 % (42-52); MEAN CORPUSCULAR HGB CONC 32.6 G/DL (33.0-37.0); MEAN PLATELET VOLUME 7.9 FL (7.4-10.4); PLATELET COUNT 275 /CUMM (130-400); RED BLOOD CELL CT 2.79 /CUMM (4.70-6.10); WHITE BLOOD CELL COUNT 9.5 /CUMM (4.8-10.8)
[2017-03-27 04:28] LABS: PT 13.2 SEC (9.4-12.5)
--- NOTE | 2017-03-27 04:37 | PN- Housestaff ---
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 Problem List/Assessment and Plan # RUL thrombosis Nonocclusive thrombus in the right subclavian vein extending to axillary vein and proximal basilic vein Doppler ultrasound on both LL ruled out DVT PICC line was placed on the LUE on 03/26 START Lovenox and coumadin 1 mg today( the patient has high tendency for GIT bleeding) H&H stable Follow up CBC and stool guiac #pleural effusion -CXR showed bilateral pleural effusions. Clinically, he is fluid overloaded, - Lasix 20 mg push -Continue to monitor in telemetery -strict Is and Os, daily weights -Hx of PE in 2013 but this was provoked #septicemia: 1/2 bottles growing e. coli with urine growing e. 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 Unasyn discontinued-completed course Afebrile and leukocytosis slowly improving. No intervention now as the price is draining. We will consider changing it to a larger lao if necessary. #Hypotension: -improved blood pressure either due to heart failure due to tachycardia 2/2 severe anemia, vs compression on the IVC by huge intra-abdominal tumor. continue po midodrine low dose metoprolol 6.25 po if needed might consider a dose of lasix as needed after an infusion of albumin to increase diuresis if BP tolerates #Anemia -H/H 8.7/26.9, same as previous few days. -s/p EGD, which did not reveal any bleeding ulcers. Contiues to have dark stools but H/H stable. #hypoalbuminemia: -Most likely due to loss of mucinous material and urine (due to his mucinous tumor of the abdomen invading his bladder) - Albumin 1.6. Pre-albumin 4 -pt was started on TPN (day 5) -Titerating up his TPN ( with second officer consult ) to improve his albumin will increase his TPN from 79---->83 will increase his lipids from 14.5--->16.5 as per second officer recommendation # history of epilepsy: -Continue anti-epileptic meds. DVT ppx: mechanical Diet: TPN DNR/DNI POAllan is his brother( discussed that with his caser in) Elvin Carrion [phone]
[2017-03-27 07:15] VITALS: BP 90/60
--- NOTE | 2017-03-27 08:30 | PN- Housestaff ---
See Addendum Subjective Follow-up For: RUE DVT Septic Shock GI bleed UTI Pseudomyoma peritoneal Seizures Complaints: SOB, RUE swelling Tele-Events Since Last Visit: NSR 96-107 Subjective: i have personally examined the patient at bedside, lying in bed in no acute distress on nasal oxygen Review of Systems Constitutional: Reports: malaise, weakness. EENTM: Denies: no symptoms. Cardiovascular: Reports: see HPI. Respiratory: Reports: short of breath. Gastrointestinal: Reports: distention. Objective Last 24 Hrs of Vital Signs/I&O Vital Signs Date Time Temp Pulse Resp B/P B/P Pulse O2 O2 Flow FiO2 Mean Ox Delivery Rate 03/27 1711 80 120/70 03/27 1520 97.9 80 20 120/70 98 Nasal 3.0L Cannula 03/27 1034 96 104/62 03/27 1033 96 104/62 03/27 0800 Nasal 3.5L Cannula 03/27 0715 97.6 100 20 90/60 96 Nasal 2.0L Cannula 03/27 0000 Nasal 3.5L Cannula 03/26 2224 98.6 81 20 97 Nasal 3.0L Cannula 03/26 2131 108 90/58 Intake & Output 03/27 1600 03/27 0800 03/27 0000 Intake Total 1040.0 1150.0 2292.0 Output Total 900 1250 2500 Balance 140.0 -100.0 -208.0 Intake, IV 666.4 Intake, Lipid 133.6 277.6 Intake, Oral 240 350 700 Intake, 666.4 133.6 1314.4 TPN/PPN Number 1 2 3 Bowel Movements Output, Urine 900 1250 2500 Physical Exam General Appearance: Alert, Oriented X3, Cooperative, No Acute Distress Skin: No Rashes, No Breakdown, No Significant Lesion Skin Temp/Moisture Exam: Warm/Dry HEENT: Atraumatic, PERRLA, EOMI, Mucous Membr. 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 Problem List/Assessment and Plan # RUL thrombosis Nonocclusive thrombus in the right subclavian vein extending to axillary vein and proximal basilic vein Doppler ultrasound on both LL ruled out DVT PICC line was placed on the LUE on 03/26 START Lovenox and coumadin 2.5 mg today( the patient has high tendency for GIT bleeding) H&H stable Follow up CBC and stool guiac #pleural effusion -CXR showed bilateral pleural effusions. Clinically, he is fluid overloaded, - Lasix 20 mg push -Continue to monitor in telemetery -strict Is and Os, daily weights -Hx of PE in 2013 but this was provoked #septicemia: 1/2 bottles growing e. coli with urine growing e. 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 Unasyn discontinued-completed course Afebrile and leukocytosis slowly improving. No intervention now as the price is draining. We will consider changing it to a larger slovak if necessary. #Hypotension: -improved blood pressure either due to heart failure due to tachycardia 2/2 severe anemia, vs compression on the IVC by huge intra-abdominal tumor. continue po midodrine low dose metoprolol 6.25 po if needed might consider a dose of lasix as needed after an infusion of albumin to increase diuresis if BP tolerates #Anemia -H/H 8.7/26.9, same as previous few days. -s/p EGD, which did not reveal any bleeding ulcers. Contiues to have dark stools but H/H stable. #hypoalbuminemia: -Most likely due to loss of mucinous material and urine (due to his mucinous tumor of the abdomen invading his bladder) - Albumin 1.6. Pre-albumin 4 -pt was started on TPN (day 12) -Titerating up his TPN ( with hand endband cutter consult ) to improve his albumin will increase his TPN from 79---->83 will increase his lipids from 14.5--->16.5 as per hand endband cutter recommendation # history of epilepsy: -Continue anti-epileptic meds. DVT ppx: mechanical Diet: TPN DNR/DNI POA is his brother( discussed that with his case assistant) Elvin Carrion [phone] Problem List: 1. DVT of upper extremity (deep vein thrombosis) 2. Anemia 3. Hypoalbuminemia 4. GI bleed 5. Shock 6. Complicated urinary tract infection 7. History of seizures 8. Pseudomyxoma peritonei 9. Sepsis 10. Dyspnea Pain Ratin Pain Location: n/a Pain Goal: Remain pain free Pain Plan: per pathway Tomorrow's Labs & Rationales: cbc bep inr DVT/Prophylaxis: pharmacological
[2017-03-27 10:33] VITALS: BP 104/62
[2017-03-27 15:20] VITALS: BP 120/70
[2017-03-27 22:11] VITALS: BP 118/68
[2017-03-28 06:47] VITALS: BP 110/62
[2017-03-28 08:23] LABS: ABSOLUTE BASOPHIL COUNT 0.1 /CUMM (0.0-0.2); ABSOLUTE EOSINOPHIL COUNT 0.1 /CUMM (0.0-0.7); ABSOLUTE GRANULOCYTE CT 6.2 /CUMM (1.4-6.5); ABSOLUTE LYMPH COUNT 1.1 /CUMM (1.2-3.4); ABSOLUTE MONOCYTE COUNT 0.6 /CUMM (0.10-0.60); BASOPHIL % 0.8 % (0.0-2.0); GRANULOCYTE % 76.7 % (42.2-75.2); HEMATOCRIT 26.9 % (42-52); MEAN CORPUSCULAR HGB 30.9 PG (27.0-31.0); MEAN CORPUSCULAR HGB CONC 32.8 G/DL (33.0-37.0); MEAN CORPUSCULAR VOLUME 94.2 FL (80.0-94.0); PLATELET COUNT 243 /CUMM (130-400); RBC DISTRIBUTION WIDTH 18.9 % (11.5-14.5); RED BLOOD CELL CT 2.85 /CUMM (4.70-6.10); WHITE BLOOD CELL COUNT 8.1 /CUMM (4.8-10.8)
[2017-03-28 08:39] LABS: PT 13.1 SEC (9.4-12.5)
[2017-03-28 14:56] VITALS: BP 100/60
[2017-03-28 17:21] VITALS: BP 90/72
--- NOTE | 2017-03-28 18:21 | PN- Housestaff ---
See Addendum SABINA CAVAZOS MD 03/28/17 1813: Subjective Follow-up For: RUE DVT Septic Shock GI bleed UTI Pseudomyoma peritoneal Seizures Tele-Events Since Last Visit: Sinus rhythm 97-100 no events Review of Systems Constitutional: Reports: weakness. Objective Last 24 Hrs of Vital Signs/I&O Vital Signs Date Time Temp Pulse Resp B/P B/P Pulse O2 O2 Flow FiO2 Mean Ox Delivery Rate 03/28 1721 101 90/72 03/28 1712 101 90/72 03/28 1456 98.2 100 16 100/60 96 Nasal 3.0L Cannula 03/28 0926 96 110/62 03/28 0800 Nasal 3.5L Cannula 03/28 0647 98.6 96 20 110/62 97 Nasal 3.0L Cannula 03/27 2238 98 118/68 03/27 2211 98.1 101 20 118/68 97 Nasal 3.0L Cannula 03/27 2153 Nasal 3.5L Cannula Intake & Output 03/28 1600 03/28 0800 03/28 0000 Intake Total 775.0 920.0 460.0 Output Total 1999 1500 1800 Balance -1225.0 -580.0 -1340.0 Intake, Lipid 116.9 133.6 66.8 Intake, Oral 75 120 60 Intake, 583.1 666.4 333.2 TPN/PPN Output, Urine 1999 1500 1800 Patient 200 lb Weight Physical Exam General Appearance: Alert, Oriented X3, Cooperative, No Acute Distress Skin: No Rashes, No Breakdown, No Significant Lesion Skin Temp/Moisture Exam: Warm/Dry HEENT: Atraumatic, PERRLA, EOMI, Mucous Membr. moist/pink Cardiovascular: Regular Rate, Normal S1, Normal S2, No Murmurs, Gallops, Rubs Lungs: Clear to Auscultation Abdomen: Normal Bowel Sounds, Soft, No Tenderness, No Hepatospenomegaly, No Masses Extremities: Normal Pulses, edema 1+ Current Medications: Current Medications Sig/Ghulam Start time Last Medication Dose Route Stop Time Status Admin Acetaminophen 650 MG Q6P PRN 03/12 1630 AC 03/20 PO 0319 Albuterol Sulfate 3 ML Q6H PRN 03/11 0930 AC 03/19 INH 1155 Digoxin 0.25 MG 1700 07/21 1945 AC 03/27 PO 1711 Enoxaparin Sodium 100 MG 1800 03/25 1800 AC 03/28 SC 1716 Fat Emulsion 400 ML 03/28 AC Intravenous IV 03/29 1859 Fat Emulsion 400 ML 03/27 190 AC 03/27 Intravenous IV 03/28 1851946 Fat Emulsion 400 ML 03/26 1900 DC 03/26 Intravenous IV 03/27 Levetiracetam 1,000 MG BID 03/18 2300 AC 03/28 PO 0926 Magnesium Oxide 400 MG BID 03/26 1000 AC 03/28 PO 0925 Melatonin 5 MG AT BEDTIME 03/16 220 AC 03/26 PO 2130 Metoprolol Tartrate 6.25 MG BID 03/15 220 AC 03/28 PO 0926 Midodrine 5 MG TID 03/25 1600 AC 03/28 PO 171 Omeprazole 40 MG DAILY AC 03/13 0700 AC 03/28 PO 0531 Ondansetron HCl 4 MG Q6P PRN 03/11 0930 AC IV Phenytoin 200 MG BID 03/18 230 AC 03/28 PO 0926 Potassium Chloride 20 MEQ BID 03/20 1000 AC 03/28 PO 0926 Sertraline HCl 150 MG QPM 03/12 220 AC 03/27 PO 2238 Total Parenteral 1 UNIT 03/28 AC Nutrition IV 03/29 1859 Total Parenteral 1 UNIT 03/27 190 AC 03/27 Nutrition IV 03/28 Total Parenteral 1 UNIT 03/26 WI 03/26 Nutrition IV 03/27 Trazodone HCl 50 MG AT BEDTIME 03/11 2200 AC 03/27 PO 223 Last 24 Hrs of Lab/Yuri Results Last 24 Hrs of Labs/Mics: Laboratory Tests 03/28/17 0610: PT 13.1 H, INR 1.25 H, CBC w Diff NO MAN DIFF REQ, RBC 2.85 L, MCV 94.2 H, MCH 30.9, RDW 18.9 H, MPV 9.0, Gran % 76.7 H, Lymphocytes % 13.5 L, Monocytes % 8.0, Eosinophils % 1.0, Basophils % 0.8, Absolute Granulocytes 6.2, Absolute Lymphocytes 1.1 L, Absolute Monocytes 0.6, Absolute Eosinophils 0.1, Absolute Basophils 0.1, PUBS MCHC 32.8 L Assessment/Plan Assessment: Mr Carrion is a 61-year-old man with a 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 Problem List/Assessment and Plan # RUL thrombosis Nonocclusive thrombus in the right subclavian vein extending to axillary vein and proximal basilic vein Doppler ultrasound on both LL ruled out DVT PICC line was placed on the LUE on 03/26 Lovenox and coumadin 2.5 mg ( the patient has high tendency for GIT bleeding)- patient may leave tomorrow, dose before departure. H&H stable 8.8 up from 8.4 up from 7.7 Follow up CBC and stool guiac #pleural effusion -CXR showed bilateral pleural effusions. Clinically, he is fluid overloaded, - Lasix 20 mg push -Continue to monitor in telemetery -strict Is and Os, daily weights -Hx of PE in 2013 but this was provoked #septicemia: 1/2 bottles growing e. coli with urine growing e. 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 Unasyn discontinued-completed course Afebrile and leukocytosis slowly improving. No intervention now as the price is draining. We will consider changing it to a larger slovak if necessary. #Hypotension: -improved blood pressure either due to heart failure due to tachycardia 2/2 severe anemia, vs compression on the IVC by huge intra-abdominal tumor. continue po midodrine low dose metoprolol 6.25 po if needed might consider a dose of lasix as needed after an infusion of albumin to increase diuresis if BP tolerates #Anemia -H/H 8.7/26.9, same as previous few days. -s/p EGD, which did not reveal any bleeding ulcers. Contiues to have dark stools but H/H stable. #hypoalbuminemia: -Most likely due to loss of mucinous material and urine (due to his mucinous tumor of the abdomen invading his bladder) - Albumin 1.6. Pre-albumin 4 -pt was started on TPN (day 12) -Titerating up his TPN ( with boardmarker consult ) to improve his albumin will increase his TPN from 79---->83 will increase his lipids from 14.5--->16.5 as per boardmarker recommendation Follow up nutrition labs (phos, TGs, pre-albumin, albumin, magnesium, lytes) # history of epilepsy: -Continue anti-epileptic meds. DVT ppx: mechanical Diet: TPN DNR/DNI POA is his brother( discussed that with his case planner) Elvin Carrion [phone] Problem List: 1. DVT of upper extremity (deep vein thrombosis) 2. Anemia 3. Failure to thrive 4. Hypoalbuminemia 5. GI bleed 6. Pseudomyxoma peritonei 7. Seizure Pain Ratin Pain Location: . Pain Goal: Remain pain free Pain Plan: . Tomorrow's Labs & Rationales: . Likely to be discharged tomorrow. DVT/Prophylaxis: mechanical, pharmacological KAROLINA CHONG MD 03/28/17 2246: Attending MD Review Statement Attending Statement Attending MD Statement: examined this patient, discuss w/resident/PA/MOBILE UI DEVELOPER, agreed w/resident/PA/MOBILE UI DEVELOPER, reviewed EMR data (avail), discussed with nursing, discussed with case mgmt, amended to note Attending Assessment/Plan: The patient was seen and discussed with house staff and case management. H/H is stable. Will continue Coumadin. TPN formulation faxed to [facility] to order anticipating transfer to facility tomorrow. Will discuss with his brother in the morning. Follow-up labs in morning prior to transfer.
[2017-03-28 23:08] VITALS: BP 88/60
[2017-03-29 03:00] VITALS: BP 100/58
[2017-03-29 06:22] LABS: ABSOLUTE BASOPHIL COUNT 0 /CUMM (0.0-0.2); ABSOLUTE EOSINOPHIL COUNT 0 /CUMM (0.0-0.7); ABSOLUTE GRANULOCYTE CT 6.9 /CUMM (1.4-6.5); ABSOLUTE LYMPH COUNT 0.9 /CUMM (1.2-3.4); ABSOLUTE MONOCYTE COUNT 0.7 /CUMM (0.10-0.60); BASOPHIL % 0.5 % (0.0-2.0); EOSINOPHIL % 0.4 % (0-5); GRANULOCYTE % 80.3 % (42.2-75.2); HEMATOCRIT 26.9 % (42-52); MEAN CORPUSCULAR HGB 29.6 PG (27.0-31.0); MEAN CORPUSCULAR VOLUME 92.5 FL (80.0-94.0); MEAN PLATELET VOLUME 7.7 FL (7.4-10.4); PLATELET COUNT 237 /CUMM (130-400); RBC DISTRIBUTION WIDTH 19.1 % (11.5-14.5); RED BLOOD CELL CT 2.91 /CUMM (4.70-6.10); WHITE BLOOD CELL COUNT 8.6 /CUMM (4.8-10.8)
[2017-03-29 07:05] VITALS: BP 110/60
--- NOTE | 2017-03-29 08:58 | PN- Housestaff ---
See Addendum Subjective Follow-up For: RUE DVT Septic Shock GI bleed UTI Pseudomyoma peritoneal Seizures Complaints: SOB, EDEMA Tele-Events Since Last Visit: ST 101-119 Subjective: PT EXAMINED AT BEDSIDE, LYING DOWN IN NO ACUTE DISTRESS ON NASAL OXYGEN 4 L Review of Systems Constitutional: Reports: malaise, weakness. Respiratory: Reports: short of breath. Objective Last 24 Hrs of Vital Signs/I&O Vital Signs Date Time Temp Pulse Resp B/P B/P Pulse O2 O2 Flow FiO2 Mean Ox Delivery Rate 03/29 1236 98.0 103 18 102/60 03/29 1234 98.0 103 18 102/60 03/29 0911 103 102/60 03/29 0705 98.0 103 18 110/60 95 03/29 0300 100/58 03/28 2308 98.1 105 16 /60 96 Nasal 3.0L Cannula 03/28 2228 Nasal 3.5L Cannula 03/28 2208 110 88/64 Intake & Output 03/29 1600 03/29 0800 03/29 0000 Intake Total 50 1300.0 450.0 Output Total 550 300 Balance 50 750.0 150.0 Intake, IV 500 Intake, Lipid 133.6 66.8 Intake, Oral 50 50 Intake, 666.4 333.2 TPN/PPN Number 3 3 1 Bowel Movements Output, Urine 550 300 Physical Exam General Appearance: Alert, Oriented X3, Cooperative, No Acute Distress Skin: No Rashes, No Breakdown, No Significant Lesion Skin Temp/Moisture Exam: Warm/Dry HEENT: Atraumatic, PERRLA, EOMI, Mucous Membr. 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 Problem List/Assessment and Plan # RUL thrombosis Nonocclusive thrombus in the right subclavian vein extending to axillary vein and proximal basilic vein Doppler ultrasound on both LL ruled out DVT PICC line was placed on the LUE on 03/26 Lovenox and coumadin 2.5 mg ( the patient has high tendency for GIT bleeding)- patient may leave tomorrow, dose before departure. H&H stable 8.8 up from 8.4 up from 7.7 Follow up CBC and stool guiac #pleural effusion -CXR showed bilateral pleural effusions. Clinically, he is fluid overloaded, - Lasix 20 mg push -Continue to monitor in telemetery -strict Is and Os, daily weights -Hx of PE in 2013 but this was provoked #septicemia: 1/2 bottles growing e. coli with urine growing e. 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 Unasyn discontinued-completed course Afebrile and leukocytosis slowly improving. No intervention now as the price is draining. We will consider changing it to a larger andorran if necessary. #Hypotension: -improved blood pressure either due to heart failure due to tachycardia 2/2 severe anemia, vs compression on the IVC by huge intra-abdominal tumor. continue po midodrine low dose metoprolol 6.25 po if needed might consider a dose of lasix as needed after an infusion of albumin to increase diuresis if BP tolerates #Anemia -H/H 8.7/26.9, same as previous few days. -s/p EGD, which did not reveal any bleeding ulcers. Contiues to have dark stools but H/H stable. #hypoalbuminemia: -Most likely due to loss of mucinous material and urine (due to his mucinous tumor of the abdomen invading his bladder) - Albumin 1.6. Pre-albumin 4 -pt was started on TPN (day 12) -Titerating up his TPN ( with technical service representative consult ) to improve his albumin will increase his TPN from 79---->83 will increase his lipids from 14.5--->16.5 as per technical service representative recommendation Follow up nutrition labs (phos, TGs, pre-albumin, albumin, magnesium, lytes) # history of epilepsy: -Continue anti-epileptic meds. THe patient is stable for discharge today DVT ppx: mechanical Diet: TPN DNR/DNI POA is his brother( discussed that with his case management coordinator) Elvin Harrismartha [phone] Problem List: 1. DVT of upper extremity (deep vein thrombosis) 2. Anemia 3. Hypoalbuminemia 4. GI bleed 5. Shock 6. Complicated urinary tract infection 7. History of seizures 8. Sepsis Pain Ratin Pain Location: n/a Pain Goal: Remain pain free Pain Plan: per pathway Tomorrow's Labs & Rationales: n/a DVT/Prophylaxis: pharmacological
[2017-03-29] MEDS ORDERED: COUMADIN1 M1 PO (11:06)
[2017-03-29] MEDS ORDERED: LOVENOX100 MG/1 M SC (11:11)
[2017-03-29 12:34] VITALS: BP 102/60
[2017-03-29 12:36] VITALS: BP 102/60
== END 2017-03-29 14:45 | DRG 871 ==
LOC: ERH 22:47 → CRI 03-11 07:17 → 1NO 03-11 07:17 → ERHI 03-11 07:17 → ENRESERV 03-11 19:04 → 1NO 03-11 21:30 → CRI 03-11 22:03 → 1NO 03-15 13:28 → CRI 03-17 20:30 → 1NO 03-19 19:11 → ENPENDDIS 03-29 10:50 → EDPENDDISTM 03-29 13:26 → 1NO 03-29 14:45
PROVIDERS: Internal Medicine; Internal Medicine Cardiovascular Disease; Internal Medicine Endocrinology, Diabetes & Metabolism; Pediatrics; Student in an Organized Health Care Education/Training Program; ADMIT Internal Medicine Critical Care Medicine
PROC: 02HV33Z Insertion of Infusion Device into Superior Vena Cava, Percutaneous Approach (ICD-10-PCS; 2017-03-10)
PROC: 30233N1 Transfusion of Nonautologous Red Blood Cells into Peripheral Vein, Percutaneous Approach (ICD-10-PCS; 2017-03-11)
PROC: 0DJ08ZZ Inspection of Upper Intestinal Tract, Via Natural or Artificial Opening Endoscopic (ICD-10-PCS; principal; 2017-03-12)
PROC: 3E0436Z Introduction of Nutritional Substance into Central Vein, Percutaneous Approach (ICD-10-PCS; 2017-03-13)
PROC: 5A09357 Assistance with Respiratory Ventilation, Less than 24 Consecutive Hours, Continuous Positive Airway Pressure (ICD-10-PCS; 2017-03-17)
DX: A41.51 Sepsis due to Escherichia coli [E. coli] (principal); R65.21 Severe sepsis with septic shock; E43 Unspecified severe protein-calorie malnutrition; E87.3 Alkalosis; C78.6 Secondary malignant neoplasm of retroperitoneum and peritoneum; I42.9 Cardiomyopathy, unspecified; F05 Delirium due to known physiological condition; C76.2 Malignant neoplasm of abdomen; K92.2 Gastrointestinal hemorrhage, unspecified; I82.621 Acute embolism and thrombosis of deep veins of right upper extremity; T82.868A Thrombosis due to vascular prosthetic devices, implants and grafts, initial encounter; D62 Acute posthemorrhagic anemia; N39.0 Urinary tract infection, site not specified; N32.1 Vesicointestinal fistula; E88.09 Other disorders of plasma-protein metabolism, not elsewhere classified; K21.9 Gastro-esophageal reflux disease without esophagitis; N40.0 Benign prostatic hyperplasia without lower urinary tract symptoms; Z66 Do not resuscitate; Z68.26 Body mass index [BMI] 26.0-26.9, adult; G40.909 Epilepsy, unspecified, not intractable, without status epilepticus; K31.7 Polyp of stomach and duodenum; R62.7 Adult failure to thrive; F39 Unspecified mood [affective] disorder; I49.3 Ventricular premature depolarization; Y84.8 Other medical procedures as the cause of abnormal reaction of the patient, or of later complication, without mention of misadventure at the time of the procedure; R00.0 Tachycardia, unspecified; K44.9 Diaphragmatic hernia without obstruction or gangrene; Z86.711 Personal history of pulmonary embolism
CPT/HCPCS: 1NP; CCU; 36415; 74177; 81001; 82436; 86920; 87040; 87086; 87147; 93005; 93010; 93306; 93970; 96374; 97110-GO; 97161-GP; 97530-GO; 99291; C1769; J0713; J1165; J1642; J1644; J1650; J1940; J1953; J2060; J2270; J2997; J3370; J7040; J7060; P9016